=== PATIENT | male | born 1940 | race Caucasian/White ===

== ENCOUNTER → 2017-02-04 | Outpatient (CLI) | payer MEDICARE, OTHER ==
[2017-02-04 15:15] LABS: ALT 32 U/L (21-72); AST 22 U/L (17-59); Alkaline Phosphatase 61 U/L (38-126); Anion Gap 10 mmol/L; Appearance,Urine Clear (Clear); Bilirubin,Urine Negative (Negative); Blood Urea Nitrogen 10 mg/dL (9-20); CH 30.3; Calcium 9.2 mg/dL (8.4-10.2); Carbon Dioxide 25 mmol/L (22-30); Chloride 99 mmol/L (98-107); Glucose 97 mg/dL (74-99); Glucose,Urine (UA) Negative (Negative); HCT 41.3 % (39.0-53.0); HDW 2.65; HGB 13.4 gm/dL (13.0-17.5); Ketones,Urine Negative (Negative); Leukocyte Esterase,Urine Negative (Negative); MCHC 32.4 g/dL (31.0-37.0); MCV 89.5 fL (80.0-100.0); Mean Platelet Volume 6.5; Nitrite,Urine Negative (Negative); Non-African American GFR(MDRD) >60 (>60 ml/min/1.73 sqM); PH, Urine 5.5 (5.0-8.0); Partial Thromboplastin Time 24.6 sec (22.0-30.0); Potassium 4.6 mmol/L (3.5-5.1); Protein,Urine Negative (Negative); Prothrombin Time 10.4 sec (9.0-12.0); RBC 4.61 m/uL (4.30-5.90); RDW 13.9 % (11.5-15.5); Sodium 134 mmol/L (137-145); Total Bilirubin 0.6 mg/dL (0.2-1.3); Total Protein 6.9 g/dL (6.3-8.2); UA Billing (MACRO vs. MICRO) CHEM; Urobilinogen,Urine <2.0 mg/dL (<2.0); WBC 8.9 k/uL (3.8-10.6)
== END | disposition home or self-care (01) ==
LOC: LABPAT 14:21
PROVIDERS: ATTEND Orthopaedic Surgery
DX: Z01.812 Encounter for preprocedural laboratory examination (principal)
CPT/HCPCS: 80053; 81003; 85027; 85610; 85730; 87070

== ENCOUNTER 2017-03-02 06:17 | Inpatient (IN) | payer MEDICARE, OTHER ==
[~2017-03-02 06:17] MED LIST: ACETAMINOPHEN TAB 500 MG TAB PO ONE; HYDROmorphone 1 MG/ML 1 ML SYRINGE IVP PRN; LACTATED RINGERS 1,000 ML IV SCH; LIDOCAINE 1% 20 ML VIAL (10MG/ML) FOR IV START INTRADERMA PRN; MELOXICAM 7.5 MG TAB PO ONE; ONDANSETRON 4 MG/2 ML VIAL IVP ONE; TRANEXAMIC ACID 1,000 MG in SODIUM CHLORIDE 0.9% 100 ML IVPB ONE; VANCOMYCIN 1,500 MG in SODIUM CHLORIDE 0.9% 250 ML IVPB ONE
[2017-03-02] MEDS ORDERED: ceFAZolin 2 GM in SODIUM CHLORIDE 0.9% 100 ML IVPB STA (06:34)
[2017-03-02 07:12] LABS: INR 1.1 (<1.2); Prothrombin Time 11.2 sec (9.0-12.0)
[2017-03-02 07:17] LABS: Glucose,Whole Blood 163 mg/dL (75-99)
[2017-03-02] MEDS ORDERED: diphenhydrAMINE 50 MG/ML 1 ML VIAL ONE (08:10)
[2017-03-02] MEDS ORDERED: SODIUM CHLORIDE 0.9% 100 ML BAG ONE (08:10)
[2017-03-02] MEDS ORDERED: MIDAZOLAM 2 MG/2 ML VIAL ONE (08:10)
[2017-03-02] MEDS ORDERED: fentaNYL (PF) 50 MCG/ML 2 ML AMP ONE (08:10)
[2017-03-02] MEDS ORDERED: TRANEXAMIC ACID 1,000 MG/10 ML VIAL ONE (08:10)
[2017-03-02] MEDS ORDERED: ceFAZolin 3,000 MG in SODIUM CHLORIDE 0.9% IRRIGATIO 3,000 ML IRRIGATION ONE (08:50)
[2017-03-02] MEDS ORDERED: ROPIVACAINE 246.25 MG, EPINEPHrine 0.5 MG, KETOROLAC 30 MG, cloNIDine HCL/PF 80 MCG, WA... MISCELLANE ONE ×5 (08:51)
[2017-03-02] MEDS ORDERED: LACTATED RINGERS 1,000 ML IV ONE (09:58)
--- NOTE | 2017-03-02 10:34 | P.OP ---
Date of Procedure: 03/02/17 Preoperative Diagnosis: Postoperative Diagnosis: Procedure(s) Performed: PREOPERATIVE DIAGNOSIS: Left knee severe osteoarthritis with genu varum POSTOPERATIVE DIAGNOSIS: Left knee severe osteoarthritis with genu varum OPERATION: Left knee cemented total replacement arthroplasty. ANESTHESIA: Spinal ESTIMATED BLOOD LOSS: 100 ml. RESEARCH PHYSICIAN: Macey Mcghee PA-C (assistance with: patient positioning, retraction, exposure, hemostasis, leg positioning, implantation, irrigation, closure, dressing) COMPLICATIONS: None apparent. COMPONENTS IMPLANTED: Persona system from [employer] INDICATIONS: Mr. Diaz is a 76-year-old male with a history of severe left knee osteoarthritis. The operation of knee replacement has been discussed at length in the office, as well as potential risks and complications. These are inclusive of, but not limited to: bleeding, infection, scarring, discomfort, blood vessel and nerve damage, need for further surgery, failure to relieve symptoms, persistence, recurrence, or worsening of problems, loosening, dislocation, wear, blood clot, pulmonary embolism, , gait dysfunction, stiffness, and other risks as discussed in the office. Iovera procedure has been done preoperatively . The patient elects to proceed and the consent form has been signed. PROCEDURE: The patient was taken to the operating room and positioned on the operating room table in the supine position. Anesthesia was initiated. Care was taken to make sure that all pressure points were adequately padded. The operative lower extremity was prepped and draped in the usual aseptic fashion using ChloraPrep. Ioban drape was used for the case and the patient received intravenous antibiotics within one hour of the incision. A pneumotourniquet and leg brown were used for the case. The limb was exsanguinated with an Esmarch bandage and the tourniquet was inflated to 350 mmHg. Time-out was called confirming the patient's identity, side, procedure and administration of antibiotics. The incision was then created midline directly over the knee, carried down through skin and into the subcutaneous tissues and down to fascia. Full thickness subcutaneous medial flap was developed. Medial parapatellar arthrotomy was performed and the interior of the knee was inspected. There was end-stage osteoarthritis of the knee with a mild to moderate genu varum type deformity. The fat pad was excised and proximal medial release on the tibia was completed using meticulous dissection and a curved osteotome. The anterior cruciate ligament was taken down. Note was made of significant attrition of the anterior and significant degenerative appearance of the posterior cruciate ligaments. The exposure was excellent. The knee was flexed 90 degrees and the patella was everted. A spot was chosen on the femur approximately 1 cm anterior to the posterior cruciate ligament insertion and an intramedullary hole was created within the femur. The intramedullary guide was then set to 5 degrees of valgus. The distal cutting block was attached and pinned into position. An appropriate amount of distal femoral resection was set. The oscillating saw was then used to make the distal femoral cut. This cut was confirmed to be flat with the flat end of an osteotome. The retractors were placed around the tibia and the tibial surface was addressed. The angle and depth of resection was adjusted using an extramedullary cutting guide. The guide had a built-in 3 degree posterior slope cut. Once the cutting guide was adjusted appropriately and in line with the axis of the tibia and confirmed to be in good position in relation to the second metatarsal and transmalleolar axis, the tibial cut was then created with protection of the posterior neurovascular structures and the collateral ligaments. The tibial cut surface was removed and sized. Femoral sizing was then accomplished using anterior referencing. Care was taken to analyze the posterior condyles for signs of deficiency or severe wear, and adjustments to the guide were made, as appropriate. 3 degree external rotation pins were placed. The cutting jig for the femur was applied to these pins. The planned cuts were further analyzed prior to performing them with the oscillating saw. No femoral notching was produced. Bone fragments were removed and the cut surfaces were finished, as necessary, with a reciprocating saw. Spacer block technique was then used to confirm that the flexion and extension gaps were equal. Soft tissue releases and adjustment of the tibial and/or femoral cuts were made, as necessary, until the gaps were equal. This included release of the posterior cruciate ligament, which was tight in this patient and , if left unreleased, would have resulted in poor kinematics and possibly early loosening. The femur was then further finished for a posterior cruciate ligament substituting component. Patellar resurfacing was performed using a reamer. The size of the required patellar component was estimated and the patellar surface was then reamed down to a residual thickness which would recreate the [place] thickness with the component. The placement of the patellar component was influenced by the degree of patellar subluxation, if any, noted on the preoperative x-rays. Prior to placing trial components, anesthetic solution consisting of ropivicaine with epinephrine, ketorolac, and clonidine was injected carefully and methodically in a grid pattern using aspiration technique into the soft tissue around the knee circumferentially, starting with the deeper tissues first and progressing to fascia, and then finally the skin/subcutaneous tissue. Particular care was taken when injecting the posterior capsule. The trial components were inserted. The tibial tray was allowed to self center and the patella was noted to track very well. The position of the tibial component was marked and the tibia was then finished for a stemmed tibial component. Cement was mixed on the back table and applied to the final components. Trial components were removed and the cut surfaces of the bone were pulse lavaged thoroughly and dried. Cement was then applied to the tibial surface and pressurized into the surface using finger pressurization technique. The tibial component was then applied and excess cement was removed after it was impacted securely and noted to be flush with the cut surface. In similar fashion, the cement was applied to the cut femoral surface, pressurized in using finger pressurization and the component was impacted into place. Excess cement was removed. The polyethylene spacer was then implanted and locked into position. The patellar component was then applied in similar technique and a patellar clamp was used to hold the patella in place as the cement hardened. Once the cement had fully hardened, the knee was reinspected. Any other cement extrusion was removed and final kinematic testing showed range of motion from 0 to 130 degrees with excellent stability, both medially and laterally and appropriate alignment of the leg. Patellar tracking was excellent. The knee was then thoroughly pulse lavaged with normal saline. The tourniquet was deflated and hemostasis was obtained with electrocautery and IV tranexamic acid, 1 g given prior to inflation of the tourniquet and another gram given at the time of closure. Closure was with #2 Ethibond in the fascia and supplemented with #2 Quill, 2-0 Vicryl suture was used for the subcutaneous tissues and 3-0 Quill for the skin. Dermabond/Steri-Strips were then applied. A lightly compressive dressing was applied using Webril and an Eric wrap. The patient was then transferred to stretcher and taken to the recovery room in stable condition. Sponge and needle counts were correct. Implants: Indications for Procedure: Operative Findings: Description of Procedure:
[2017-03-02] MEDS ORDERED: hydrOXYzine PAMOATE 25 MG CAP PO PRN (10:37)
[2017-03-02] MEDS ORDERED: BISACODYL 10 MG SUPP RECTAL PRN (10:37)
[2017-03-02] MEDS ORDERED: NALOXONE 0.4 MG/ML 1 ML VIAL IV PRN (10:37)
[2017-03-02] MEDS ORDERED: HYDROmorphone 1 MG/ML 1 ML SYRINGE IVP PRN ×3 (10:37)
[2017-03-02] MEDS ORDERED: HYDROcodone/APAP 5-325MG 1 EACH TAB PO PRN (10:37)
[2017-03-02] MEDS ORDERED: MAGNESIUM HYDROXIDE 2,400 MG/10 ML CUP PO PRN (10:37)
[2017-03-02] MEDS ORDERED: ACETAMINOPHEN TAB 325 MG TAB PO PRN (10:37)
[2017-03-02] MEDS ORDERED: ONDANSETRON 4 MG/2 ML VIAL IVP PRN (10:37)
[2017-03-02] MEDS ORDERED: NA PHOS,M-B/NA PHOS,DI-BA 133 ML ENEMA RECTAL PRN (10:37)
[2017-03-02] MEDS ORDERED: ALBUTEROL NEBULIZED 2.5 MG/3 ML INHALATION ONE (10:40)
--- NOTE | 2017-03-02 11:35 | XR ---
EXAMINATION TYPE: XR knee limited LT DATE OF EXAM: 03/02/2017 CLINICAL HISTORY: Postoperative evaluation Two views of the left knee are submitted. Identified are changes of total knee arthroplasty with fem oral and tibial components appearing well seated. Postsurgical soft tissue changes are noted. Align ment is anatomic.
[2017-03-02] MEDS ORDERED: NITROGLYCERIN SL TABS 0.4 MG TAB SUBLINGUAL PRN (12:03)
[2017-03-02] MEDS ORDERED: IPRATROPIUM-ALBUTEROL 3 ML NEB INHALATION PRN (12:19)
[2017-03-02] MEDS: IPRATROPIUM-ALBUTEROL 3 ML NEB INHALATION SCH ×3 (12:19→19:50)
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
[2017-03-02 13:05] LABS: Basophils # (A) 0.1 k/uL (0-0.2); Basophils % (A) 2 %; CH 29.6; CHCM 33.7; Eosinophils # (A) 0.8 k/uL (0-0.7); Eosinophils % (A) 10 %; HCT 39.5 % (39.0-53.0); HDW 2.87; HGB 13.3 gm/dL (13.0-17.5); Luc # (Auto) 0.19; Luc % (Auto) 3; Lymphocytes # (A) 2.2 k/uL (1.0-4.8); Lymphocytes % (A) 29 %; MCH 29.7 pg (25.0-35.0); MCHC 33.7 g/dL (31.0-37.0); MCV 88.3 fL (80.0-100.0); Monocytes # (A) 0.4 k/uL (0-1.0); Monocytes % (A) 5 %; Neutrophils % (A) 52 %; RBC 4.47 m/uL (4.30-5.90); RDW 13.3 % (11.5-15.5); WBC 7.7 k/uL (3.8-10.6); WBC (Perox) 8.19
[2017-03-02 13:12] LABS: ALT 26 U/L (21-72); AST 18 U/L (17-59); Alkaline Phosphatase 55 U/L (38-126); Anion Gap 6 mmol/L; Blood Urea Nitrogen 8 mg/dL (9-20); Calcium 8.6 mg/dL (8.4-10.2); Carbon Dioxide 28 mmol/L (22-30); Chloride 103 mmol/L (98-107); Glucose 129 mg/dL (74-99); Non-African American GFR(MDRD) >60 (>60 ml/min/1.73 sqM); Potassium 4.6 mmol/L (3.5-5.1); Sodium 137 mmol/L (137-145); Total Bilirubin 0.3 mg/dL (0.2-1.3); Total Protein 5.8 g/dL (6.3-8.2)
[2017-03-02 15:07] VITALS: BMI 33.9
[2017-03-02] MEDS: ceFAZolin 2 GM in SODIUM CHLORIDE 0.9% 100 ML IVPB SCH (16:54)
[2017-03-02] MEDS: LACTATED RINGERS 1,000 ML IV SCH ×2 (16:54→20:39)
[2017-03-02] MEDS ORDERED: WARFARIN 5 MG TAB PO ONE (18:00)
[2017-03-02] MEDS: LISINOPRIL 2.5 MG TAB PO SCH (18:22)
[2017-03-02] MEDS: SYMBICORT 160-4.5 MCG INHALER INHALATION SCH (19:50)
[2017-03-02] MEDS: levETIRAcetam 500 MG TAB PO SCH (21:40)
[2017-03-02] MEDS: MONTELUKAST 10 MG TAB PO SCH (21:40)
[2017-03-02] MEDS: ATORVASTATIN 10 MG TAB PO SCH (21:40)
[2017-03-02] MEDS: SENNOSIDES-DOCUSATE SODIUM 1 EACH TAB PO SCH (21:43)
[2017-03-02] MEDS ORDERED: TEMAZEPAM 15 MG CAP PO PRN (22:00)
[2017-03-03] MEDS: ceFAZolin 2 GM in SODIUM CHLORIDE 0.9% 100 ML IVPB SCH (00:58)
[2017-03-03] MEDS: IPRATROPIUM-ALBUTEROL 3 ML NEB INHALATION SCH ×4 (07:04→21:13)
[2017-03-03 07:31] LABS: Basophils # (A) 0.1 k/uL (0-0.2); Basophils % (A) 1 %; CH 29.9; CHCM 33.5; Eosinophils # (A) 0.8 k/uL (0-0.7); Eosinophils % (A) 7 %; HCT 37.8 % (39.0-53.0); HDW 2.73; HGB 12.3 gm/dL (13.0-17.5); Luc # (Auto) 0.16; Luc % (Auto) 1; Lymphocytes # (A) 1.7 k/uL (1.0-4.8); Lymphocytes % (A) 15 %; MCH 29.2 pg (25.0-35.0); MCHC 32.6 g/dL (31.0-37.0); MCV 89.8 fL (80.0-100.0); Mean Platelet Volume 6.8; Monocytes # (A) 0.7 k/uL (0-1.0); Monocytes % (A) 6 %; Neutrophils % (A) 70 %; RBC 4.21 m/uL (4.30-5.90); RDW 13.5 % (11.5-15.5); WBC 11.4 k/uL (3.8-10.6); WBC (Perox) 11.63
[2017-03-03 07:45] LABS: ALT 31 U/L (21-72); AST 19 U/L (17-59); Alkaline Phosphatase 58 U/L (38-126); Anion Gap 6 mmol/L; Blood Urea Nitrogen 9 mg/dL (9-20); Calcium 8.3 mg/dL (8.4-10.2); Carbon Dioxide 26 mmol/L (22-30); Chloride 102 mmol/L (98-107); Glucose 123 mg/dL (74-99); INR 1.3 (<1.2); Non-African American GFR(MDRD) >60 (>60 ml/min/1.73 sqM); Potassium 4.2 mmol/L (3.5-5.1); Sodium 134 mmol/L (137-145); Total Bilirubin 0.5 mg/dL (0.2-1.3); Total Protein 5.5 g/dL (6.3-8.2)
[2017-03-03] MEDS: ISOSORBIDE MONONITRATE ER 30 MG TAB.ER.24H PO SCH (08:53)
[2017-03-03] MEDS: POTASSIUM CHLORIDE ER 20 MEQ TAB.ER PO SCH (08:53)
[2017-03-03] MEDS: PANTOPRAZOLE 40 MG TABLET PO SCH (08:53)
[2017-03-03] MEDS: METOPROLOL SUCCINATE (ER) 100 MG TAB.ER.24H PO SCH (08:53)
[2017-03-03] MEDS: levETIRAcetam 500 MG TAB PO SCH ×2 (08:53→21:08)
[2017-03-03] MEDS: MELOXICAM 7.5 MG TAB PO SCH (08:54)
[2017-03-03] MEDS: CLOPIDOGREL 75 MG TAB PO SCH (08:54)
[2017-03-03] MEDS: FLUTICASONE 50MCG/SPRAY NASAL 16GM EA NOSTRIL SCH (09:33)
--- NOTE | 2017-03-03 09:39 | P.PN ---
Subjective Principal diagnosis: Status post left total knee arthroplasty Patient is a pleasant 76-year-old male seen at bedside this morning. He is postop day #1 from left total knee arthroplasty performed by Dr. Benitez. He has pain at the surgical site as expected but denies any other new complaints. He denies calf pain, numbness, tingling or other. Review of systems is negative for fever, chills, chest pain, shortness of breath, slurred speech or other. Objective - Vital Signs Vital signs: Vital Signs Temp 98.4 F 03/03/17 08:47 Pulse 75 03/03/17 08:47 Resp 20 03/03/17 08:47 BP 133/64 03/03/17 08:47 Pulse Ox 97 03/03/17 08:47 Intake & Output 03/02/17 03/03/17 03/03/17 18:59 06:59 18:59 Intake Total 1701 2155 Output Total 100 600 300 Balance 1601 1555 -300 Weight 95.254 kg Intake: IV 1001 Intake, IV Titration 300 1100 Amount Lactated Ringers 1,000 ml 300 300 @ 100 mls/hr IV .Q10H [facility] Rx#:[id number] ceFAZolin 2 gm In Sodium 800 Chloride 0.9% 100 ml @ 100 mls/hr IVPB Q8HR [facility] Rx#:[id number] Oral 400 1055 Output: Urine 600 300 Estimated Blood Loss 100 Other: # Voids 1 - Exam Inspection of the left lower extremity reveals a benign surgical wound. There is no active bleeding or drainage. Calf is soft and nontender. Neurovascular status is intact with motor and sensation throughout the left lower extremity. 2+ dorsalis pedis pulses present and less than 2 second cap refill is present. - Constitutional General appearance: Present: no acute distress - Psychiatric Psychiatric: Present: A&O x's 3, appropriate affect, intact judgment & insight - Labs CBC & Chem 7: 03/03/17 06:46 03/03/17 06:46 Labs: Abnormal Lab Results - Last 24 Hours (Table) 03/02/17 03/02/17 03/03/17 Range/Units 12:40 12:40 06:46 WBC 11.4 H (3.8-10.6) k/uL RBC 4.21 L (4.30-5.90) m/uL Hgb 12.3 L (13.0-17.5) gm/dL Hct 37.8 L (39.0-53.0) % Neutrophils # 8.0 H (1.3-7.7) k/uL Eosinophils # 0.8 H 0.8 H (0-0.7) k/uL PT (9.0-12.0) sec INR (<1.2) Sodium (137-145) mmol/L BUN 8 L (9-20) mg/dL Glucose 129 H (74-99) mg/dL Calcium (8.4-10.2) mg/dL Total Protein 5.8 L (6.3-8.2) g/dL Albumin (3.5-5.0) g/dL 03/03/17 03/03/17 Range/Units 06:46 06:46 WBC (3.8-10.6) k/uL RBC (4.30-5.90) m/uL Hgb (13.0-17.5) gm/dL Hct (39.0-53.0) % Neutrophils # (1.3-7.7) k/uL Eosinophils # (0-0.7) k/uL PT 13.0 H (9.0-12.0) sec INR 1.3 H (<1.2) Sodium 134 L (137-145) mmol/L BUN (9-20) mg/dL Glucose 123 H (74-99) mg/dL Calcium 8.3 L (8.4-10.2) mg/dL Total Protein 5.5 L (6.3-8.2) g/dL Albumin 3.2 L (3.5-5.0) g/dL Assessment and Plan (1) Status post total knee replacement Narrative/Plan: He will continue with routine postop orthopedic protocol including pain management, wound care, physical therapy, DVT prophylaxis and medical management. Expect that he will discharged to home in the next 1-2 days. Status: Acute Time with Patient: Less than 30
[2017-03-03] MEDS: SYMBICORT 160-4.5 MCG INHALER INHALATION SCH ×2 (11:36→21:13)
[2017-03-03] MEDS ORDERED: MULTIVITAMINS, THERA 1 EACH TAB PO SCH (12:00)
[2017-03-03] MEDS: MULTIVITAMINS, THERA 1 EACH TAB PO SCH (13:10)
[2017-03-03] MEDS: HYDROcodone/APAP 5-325MG 1 EACH TAB PO PRN (13:10)
[2017-03-03] MEDS: LISINOPRIL 2.5 MG TAB PO SCH (17:49)
[2017-03-03] MEDS ORDERED: WARFARIN 7.5 MG TAB PO ONE (18:00)
--- NOTE | 2017-03-03 19:29 | P.PN ---
Subjective This is a 76-year-old male with a known past medical history of COPD, hypertension, hyperlipidemia, myocardial infarction with coronary artery disease and previous cardiac stent and prostate cancer. Patient has been dealing with left knee pain and known osteoarthritis in that left knee. He underwent a left total knee arthroplasty with Dr. Benitez. Tolerated surgery well with no complications. He had estimated blood loss of 100 mL. We have been consulted for medical management. Patient denies any chest pain or shortness of breath. He has been wheezing. He does report having a cough about 3 days ago and that resolved. Currently no coughing or shortness of breath. Denies any chest pain. Denies any nausea or vomiting. Had a bowel movement yesterday. Denies any urinary symptoms. patient denies any pain 03/03/2017 patient is alert and oriented 3 knee pain is reasonably well controlled denies any chest pain or shortness of breath no cough no nausea or vomiting no abdominal pain no urinary symptoms. He was able to ambulate about 50 steps with walker and help Objective - Vital Signs Vital signs: Vital Signs Temp 98.0 F 03/03/17 15:00 Pulse 68 03/03/17 17:03 Resp 16 03/03/17 15:00 BP 113/55 03/03/17 15:00 Pulse Ox 95 03/03/17 15:00 Intake & Output 03/03/17 03/03/17 03/04/17 06:59 18:59 06:59 Intake Total 2155 Output Total 600 800 Balance 1555 -800 Weight 95.254 kg Intake: Intake, IV Titration 1100 Amount Lactated Ringers 1,000 ml 300 @ 100 mls/hr IV .Q10H [facility] Rx#:[id number] ceFAZolin 2 gm In Sodium 800 Chloride 0.9% 100 ml @ 100 mls/hr IVPB Q8HR [facility] Rx#:[id number] Oral 1055 Output: Urine 600 800 Other: # Voids 1 - Exam In general patient is alert and oriented 3 in no apparent distress HEENT head normocephalic and atraumatic Neck is supple no JVD no goiter no lymphadenopathy Chest exam reveals a few scattered crackles no wheezing Cardiac exam reveals regular heart sounds S1 and S2 no gallops no murmurs Abdomen is soft nontender no organomegaly with normal bowel sounds Extremity exam reveals no edema no cyanosis or clubbing - Labs CBC & Chem 7: 03/03/17 06:46 03/03/17 06:46 Labs: Abnormal Lab Results - Last 24 Hours (Table) 03/03/17 03/03/17 03/03/17 Range/Units 06:46 06:46 06:46 WBC 11.4 H (3.8-10.6) k/uL RBC 4.21 L (4.30-5.90) m/uL Hgb 12.3 L (13.0-17.5) gm/dL Hct 37.8 L (39.0-53.0) % Neutrophils # 8.0 H (1.3-7.7) k/uL Eosinophils # 0.8 H (0-0.7) k/uL PT 13.0 H (9.0-12.0) sec INR 1.3 H (<1.2) Sodium 134 L (137-145) mmol/L Glucose 123 H (74-99) mg/dL Calcium 8.3 L (8.4-10.2) mg/dL Total Protein 5.5 L (6.3-8.2) g/dL Albumin 3.2 L (3.5-5.0) g/dL Assessment and Plan Plan: 1. Osteoarthritis: Status post Left total knee arthroplasty. Postop day #2. Pain is controlled. Continue pain medication and DVT prophylaxis per orthopedic protocol. INR 1.1. Patient is receiving Coumadin 5 mg tonight 2. Acute COPD exacerbation with a known history of COPD: Patient is wheezing. Start nebulizer treatments 4 times a day and as needed 3. Essential hypertension continue his lisinopril and metoprolol 4. History of CVA 5. History of myocardial infarction and coronary disease with cardiac stent 6. History of prostate cancer 7. Hyperlipidemia continue statin 8. Seizure disorder: Continue Keppra GI prophylaxis omeprazole and DVT prophylaxis per orthopedic protocol Patient doing well continue was current management will follow in a.m.
[2017-03-03] MEDS: MONTELUKAST 10 MG TAB PO SCH (21:08)
[2017-03-03] MEDS: SENNOSIDES-DOCUSATE SODIUM 1 EACH TAB PO SCH (21:08)
[2017-03-03] MEDS: ATORVASTATIN 10 MG TAB PO SCH (21:08)
[2017-03-03] MEDS: LACTATED RINGERS 1,000 ML IV SCH ×2 (23:02→23:08)
[2017-03-04] MEDS: HYDROcodone/APAP 5-325MG 1 EACH TAB PO PRN ×2 (00:53→10:03)
[2017-03-04] MEDS: LACTATED RINGERS 1,000 ML IV SCH (04:08)
[2017-03-04 07:12] LABS: Basophils # (A) 0.1 k/uL (0-0.2); Basophils % (A) 1 %; CH 30.2; CHCM 33.7; Eosinophils # (A) 0.4 k/uL (0-0.7); Eosinophils % (A) 5 %; HCT 33.8 % (39.0-53.0); HDW 2.65; HGB 10.9 gm/dL (13.0-17.5); Luc % (Auto) 3; Lymphocytes % (A) 25 %; MCHC 32.2 g/dL (31.0-37.0); Mean Platelet Volume 6.9; Monocytes # (A) 0.9 k/uL (0-1.0); Monocytes % (A) 11 %; Neutrophils # (A) 4.6 k/uL (1.3-7.7); Neutrophils % (A) 56 %; RBC 3.75 m/uL (4.30-5.90); RDW 13.4 % (11.5-15.5); WBC 8.2 k/uL (3.8-10.6); WBC (Perox) 7.96
[2017-03-04 07:15] LABS: INR 1.7 (<1.2); Prothrombin Time 16.6 sec (9.0-12.0)
[2017-03-04 07:25] LABS: ALT 26 U/L (21-72); AST 15 U/L (17-59); Alkaline Phosphatase 51 U/L (38-126); Anion Gap 8 mmol/L; Blood Urea Nitrogen 7 mg/dL (9-20); Calcium 8.4 mg/dL (8.4-10.2); Carbon Dioxide 26 mmol/L (22-30); Chloride 101 mmol/L (98-107); Glucose 107 mg/dL (74-99); Non-African American GFR(MDRD) >60 (>60 ml/min/1.73 sqM); Potassium 3.9 mmol/L (3.5-5.1); Sodium 135 mmol/L (137-145); Total Bilirubin 0.7 mg/dL (0.2-1.3); Total Protein 5.1 g/dL (6.3-8.2)
[2017-03-04 08:07] VITALS: BP 129/60; RESP 16; TEMP 97.2
[2017-03-04] MEDS: METOPROLOL SUCCINATE (ER) 100 MG TAB.ER.24H PO SCH (08:22)
[2017-03-04] MEDS: FLUTICASONE 50MCG/SPRAY NASAL 16GM EA NOSTRIL SCH (08:22)
[2017-03-04] MEDS: MELOXICAM 7.5 MG TAB PO SCH (08:23)
[2017-03-04] MEDS: levETIRAcetam 500 MG TAB PO SCH (08:23)
[2017-03-04] MEDS: PANTOPRAZOLE 40 MG TABLET PO SCH (08:23)
[2017-03-04] MEDS: ISOSORBIDE MONONITRATE ER 30 MG TAB.ER.24H PO SCH (08:23)
[2017-03-04] MEDS: MULTIVITAMINS, THERA 1 EACH TAB PO SCH (08:23)
[2017-03-04] MEDS: POTASSIUM CHLORIDE ER 20 MEQ TAB.ER PO SCH (08:23)
[2017-03-04] MEDS: IPRATROPIUM-ALBUTEROL 3 ML NEB INHALATION SCH ×4 (08:59→15:42)
[2017-03-04] MEDS: CLOPIDOGREL 75 MG TAB PO SCH (09:00)
[2017-03-04] MEDS: SYMBICORT 160-4.5 MCG INHALER INHALATION SCH (09:16)
--- NOTE | 2017-03-04 09:45 | P.DS ---
Providers Date of admission: 03/02/17 06:17 Expected date of discharge: 03/04/17 Attending physician: Michael Benitez Consults: 03/02/17 10:37 Consult Physician Routine Consulting Provider: Florian Rdz Consult Reason/Comments: medical management/anticoagulation Do you want consulting provider notified?: Yes Primary care physician: Florian Rdz - Discharge Diagnosis(es) (1) Primary localized osteoarthritis of left knee Current Visit: Yes Status: Acute (2) Status post total knee replacement Current Visit: Yes Status: Acute Priority: Medium Hospital Course: This is a 76-year-old male who was last seen with complaint of continued left knee pain. The patient has a known history of degenerative arthritis of the left knee and presents to discuss surgical options. After discussion and consideration the patient elects to proceed with total left knee arthroplasty. The patient is seen preoperatively by Dr. Rdz and cleared for surgery. The patient is admitted to [facility] for total left knee arthroplasty. The procedures performed without complication or sequelae. He is doing well postoperatively. Vital signs are stable at discharge. Labs are stable at discharge. the patient is ambulating well with walker with minimal assistance. The patient is discharged to home on postop day #2 pending medical clearance. Please see orders and refer to the med rec for accurate list of medications. Patient Condition at Discharge: Good Plan - Discharge Summary New Discharge Prescriptions: New Aspirin 325 mg PO BID #120 tab HYDROcodone/APAP 5-325MG [[employer] 5-325] 1 - 2 each PO Q4-6H PRN #90 tab PRN Reason: Pain Sennosides-Docusate Sodium [Senokot-S] 1 tab PO BID #60 tablet No Action Ipratropium/Albuterol Sulfate [Duoneb 0.5 mg-3 mg/3 ml Soln] 3 ml INHALATION RT-QID Aspirin 325 mg PO DAILY Metoprolol Succinate [Toprol XL] 100 mg PO DAILY Lisinopril [Zestril] 2.5 mg PO W/SUPPER Montelukast Sodium [Singulair] 10 mg PO HS Nitroglycerin Sl Tabs [Nitrostat] 0.4 mg SUBLINGUAL Q5M PRN PRN Reason: Pain Isosorbide Mononitrate ER [Imdur] 30 mg PO DAILY Albuterol Sulfate [Proair Hfa] 2 puff INHALATION RT-Q6H PRN PRN Reason: Shortness Of Breath Simvastatin [Zocor] 20 mg PO HS Clopidogrel [Plavix] 75 mg PO DAILY Potassium Chloride [Klor-Con 20] 20 meq PO DAILY Omeprazole [PriLOSEC] 20 mg PO DAILY Multivitamins, Thera [Multivitamin (formulary)] 1 tab PO DAILY levETIRAcetam [Keppra] 500 mg PO Q12HR #60 tab Fluticasone/Salmeterol [Advair 500-50 Diskus] 1 puff INHALATION RT-BID PRN PRN Reason: Shortness Of Breath Fluticasone Nasal [place] [Flonase Nasal [place]] 1 spray EA NOSTRIL DAILY diphenhydrAMINE HCL [Benadryl] 25 mg PO HS PRN PRN Reason: Insomnia Warfarin [Coumadin] 2.5 mg PO DAILY Discharge Medication List Albuterol Sulfate [Proair Hfa] 2 puff INHALATION RT-Q6H PRN 01/11/14 [History] Aspirin 325 mg PO DAILY 01/11/14 [History] Clopidogrel [Plavix] 75 mg PO DAILY 01/11/14 [History] Ipratropium/Albuterol Sulfate [Duoneb 0.5 mg-3 mg/3 ml Soln] 3 ml INHALATION RT- QID 01/11/14 [History] Isosorbide Mononitrate ER [Imdur] 30 mg PO DAILY 01/11/14 [History] Lisinopril [Zestril] 2.5 mg PO W/SUPPER 01/11/14 [History] Metoprolol Succinate [Toprol XL] 100 mg PO DAILY 01/11/14 [History] Montelukast Sodium [Singulair] 10 mg PO HS 01/11/14 [History] Multivitamins, Thera [Multivitamin (formulary)] 1 tab PO DAILY 01/11/14 [History ] Nitroglycerin Sl Tabs [Nitrostat] 0.4 mg SUBLINGUAL Q5M PRN 01/11/14 [History] Omeprazole [PriLOSEC] 20 mg PO DAILY 01/11/14 [History] Potassium Chloride [Klor-Con 20] 20 meq PO DAILY 01/11/14 [History] Simvastatin [Zocor] 20 mg PO HS 01/11/14 [History] levETIRAcetam [Keppra] 500 mg PO Q12HR #60 tab 01/13/14 [Rx] Fluticasone/Salmeterol [Advair 500-50 Diskus] 1 puff INHALATION RT-BID PRN 03/28 [History] Fluticasone Nasal [place] [Flonase Nasal [place]] 1 spray EA NOSTRIL DAILY 02/25/16 [History] diphenhydrAMINE HCL [Benadryl] 25 mg PO HS PRN 07/22/16 [History] Warfarin [Coumadin] 2.5 mg PO DAILY 02/26/17 [History] Aspirin 325 mg PO BID #120 tab 03/02/17 [Rx] HYDROcodone/APAP 5-325MG [[employer] 5-325] 1 - 2 each PO Q4-6H PRN #90 tab 03/02/17 [Rx] Sennosides-Docusate Sodium [Senokot-S] 1 tab PO BID #60 tablet 03/02/17 [Rx] Follow up Appointment(s)/Referral(s): Macey Mcghee, PAC [[employer]] - 2 Weeks Ambulatory/Diagnostic Orders: Continuous Passive Motion (CPM) Machine [DME.AMB1] Time Frame: 3 Weeks, Facility : [facility], Location: Case Management Activity/Diet/Wound Care/Special Instructions: May bear weight as tolerated with walker. CPM as directed. May shower if no drainage from incision. Medical has resumed Plavix. Take Coumadin for 3 more doses after discharge. ( last dose March 06) Discharge Disposition: HOME WITH HOME HEALTH SERVICES
[2017-03-04 14:20] VITALS: PULSE 72
--- NOTE | 2017-03-04 15:22 | P.PN ---
Subjective This is a 76-year-old male with a known past medical history of COPD, hypertension, hyperlipidemia, myocardial infarction with coronary artery disease and previous cardiac stent and prostate cancer. Patient has been dealing with left knee pain and known osteoarthritis in that left knee. He underwent a left total knee arthroplasty with Dr. Benitez. Tolerated surgery well with no complications. He had estimated blood loss of 100 mL. We have been consulted for medical management. Patient denies any chest pain or shortness of breath. He has been wheezing. He does report having a cough about 3 days ago and that resolved. Currently no coughing or shortness of breath. Denies any chest pain. Denies any nausea or vomiting. Had a bowel movement yesterday. Denies any urinary symptoms. patient denies any pain 03/03/2017 patient is alert and oriented 3 knee pain is reasonably well controlled denies any chest pain or shortness of breath no cough no nausea or vomiting no abdominal pain no urinary symptoms. He was able to ambulate about 50 steps with walker and help Objective - Vital Signs Vital signs: Vital Signs Temp 97.2 F L 03/04/17 08:05 Pulse 72 03/04/17 14:19 Resp 16 03/04/17 08:05 BP 129/60 03/04/17 08:05 Pulse Ox 96 03/04/17 08:05 Intake & Output 03/03/17 03/04/17 03/04/17 18:59 06:59 18:59 Intake Total 2400 480 Output Total 800 1750 600 Balance -800 650 -120 Weight 95.254 kg Intake: Intake, IV Titration 1100 Amount Lactated Ringers 1,000 ml 1100 @ 100 mls/hr IV .Q10H [facility]MA Rx#:[id number] Oral 1300 480 Output: Urine 800 1750 600 Other: # Voids 1 3 - Exam In general patient is alert and oriented 3 in no apparent distress HEENT head normocephalic and atraumatic Neck is supple no JVD no goiter no lymphadenopathy Chest exam reveals a few scattered crackles no wheezing Cardiac exam reveals regular heart sounds S1 and S2 no gallops no murmurs Abdomen is soft nontender no organomegaly with normal bowel sounds Extremity exam reveals no edema no cyanosis or clubbing - Labs CBC & Chem 7: 03/04/17 06:30 03/04/17 06:30 Labs: Abnormal Lab Results - Last 24 Hours (Table) 03/04/17 03/04/17 03/04/17 Range/Units 06:30 06:30 06:30 RBC 3.75 L (4.30-5.90) m/uL Hgb 10.9 L (13.0-17.5) gm/dL Hct 33.8 L (39.0-53.0) % PT 16.6 H (9.0-12.0) sec INR 1.7 H (<1.2) Sodium 135 L (137-145) mmol/L BUN 7 L (9-20) mg/dL Glucose 107 H (74-99) mg/dL AST 15 L (17-59) U/L Total Protein 5.1 L (6.3-8.2) g/dL Albumin 3.0 L (3.5-5.0) g/dL Assessment and Plan Plan: 1. Osteoarthritis: Status post Left total knee arthroplasty. Postop day #3. Pain is controlled. Continue pain medication and DVT prophylaxis per orthopedic protocol. INR 1.1. Patient is receiving Coumadin 5 mg tonight 2. Acute COPD exacerbation with a known history of COPD: Patient is wheezing. Start nebulizer treatments 4 times a day and as needed 3. Essential hypertension continue his lisinopril and metoprolol 4. History of CVA 5. History of myocardial infarction and coronary disease with cardiac stent 6. History of prostate cancer 7. Hyperlipidemia continue statin 8. Seizure disorder: Continue Keppra Patient is scheduled for discharge today, he is stable there is no medical contraindication for discharge Will follow in the office within 1 week
[2017-03-04] MEDS: LISINOPRIL 2.5 MG TAB PO SCH (16:58)
[2017-03-04] MEDS ORDERED: WARFARIN 5 MG TAB PO ONE (18:00)
== END 2017-03-04 17:27 | disposition home health service (06) | DRG 470 ==
LOC: 2ORMAIN 06:17 → 3SUR 10:50
PROVIDERS: ADMIT Orthopaedic Surgery; ATTEND Orthopaedic Surgery
PROC: 0SRD0J9 Replacement of Left Knee Joint with Synthetic Substitute, Cemented, Open Approach (ICD-10-PCS; principal; 2017-03-02 08:00)
DX: M17.12 Unilateral primary osteoarthritis, left knee (principal); J44.1 Chronic obstructive pulmonary disease with (acute) exacerbation; E11.9 Type 2 diabetes mellitus without complications; G40.909 Epilepsy, unspecified, not intractable, without status epilepticus; I10 Essential (primary) hypertension; E78.5 Hyperlipidemia, unspecified; F40.240 Claustrophobia; H91.92 Unspecified hearing loss, left ear; I25.10 Atherosclerotic heart disease of native coronary artery without angina pectoris; I25.2 Old myocardial infarction; M21.169 Varus deformity, not elsewhere classified, unspecified knee; H53.8 Other visual disturbances; Z79.01 Long term (current) use of anticoagulants; Z79.02 Long term (current) use of antithrombotics/antiplatelets; Z79.82 Long term (current) use of aspirin; Z79.899 Other long term (current) drug therapy; Z85.46 Personal history of malignant neoplasm of prostate; Z95.5 Presence of coronary angioplasty implant and graft; Z87.891 Personal history of nicotine dependence; Z85.828 Personal history of other malignant neoplasm of skin; Z86.14 Personal history of Methicillin resistant Staphylococcus aureus infection
CPT/HCPCS: 80053; 85025; 85610; 88300; 94640; 94760

== ENCOUNTER → 2017-03-11 | Outpatient (CLI) | payer MEDICARE ==
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
== END | disposition home or self-care (01) ==
LOC: RADXRMAIN 16:15
PROVIDERS: ATTEND Internal Medicine
DX: J44.9 Chronic obstructive pulmonary disease, unspecified (principal)
CPT/HCPCS: 71020

== ENCOUNTER → 2017-12-17 | Outpatient (CLI) | payer MEDICARE ==
--- NOTE | 2017-12-17 15:43 | CONS ---
CONSULTATION DATE OF SERVICE: 12/17/17 77-year-old gentleman has been evaluated in [facility] for obstructive sleep apnea- hypopnea syndrome. HISTORY OF PRESENT ILLNESS SLEEP WAKE EVALUATION: Patient has been diagnosed with obstructive sleep apnea more than 10 years ago. Since that time, he is on treatment with CPAP. At the present time, his CPAP unit creates noises and he has sometimes snoring and problem with breathing during the sleep. In the morning he wakes up tired, has difficulties to pay attention, falling asleep, has problems with memory. [place] Sleepiness Scale Thursday he is in today increased to 12. PAST MEDICAL HISTORY: Positive for asthma and COPD, diabetes mellitus, hypertension, mini stroke, hyperlipidemia, prostate CA, back problems. PAST SURGICAL HISTORY: Surgical treatment of prostate CA in 1999. Surgery for umbilical hernia, appendectomy and cataract surgery. MEDICATIONS: Glipizide, Prilosec, Plavix, simvastatin, multivitamins, Advair Diskus, ProAir, nitroglycerin on p.r.n. basis, Imdur, Singulair, metoprolol, lisinopril, Benadryl, Flonase nasal spray. SOCIAL HISTORY: Positive for smoking about 1 pack for 30 years, quit about 7 years ago. Alcohol consumption occasional. FAMILY HISTORY: Hypertension, heart problems, hyperlipidemia, stroke, asthma, pneumoniae, headaches, cancer, emphysema, sleep apnea, lung problems, diabetes. REVIEW OF SYSTEMS: Sleepiness during the day. REVIEW OF SYSTEMS: The patient does not offer any physical complaints. The patient denies any rashes or other skin problems. The patient does not report any joint pain, swelling, or restriction of movement. The patient denies any headaches, any visual problems, hearing loss, sore throat. Denies any pain on breathing, shortness of breath, cough, wheezing, hemoptysis, night sweats. The patient also denies chest pain or distress, palpitations, dyspnea, orthopnea, edema, history of hypertension, history of myocardial infarction. Denies nausea, vomiting, diarrhea, hematemesis, and melena. Denies hemorrhoids or ulcers. Denies any genitourinary problems. Does not report any history of seizures. PHYSICAL EXAMINATION: gentleman without distress, BP 119/55, HR 58, RR 16, height 5 feet 6 inches, weight 204, BMI 32.9, temperature 97.7, oxygen saturation room air 94%. Oropharynx low position of soft palate. Significant restriction of nasal breathing. possible nasal septum deviation. Neck 16-1/4 inch in circumference. Abdomen slightly obese. Lungs Clear to auscultation bilaterally. Heart S1, S2 can be heard, no gallops, rubs, or murmurs. Abdomen: Slightly obese, soft, nontender, no organomegaly, bowel sounds are heard in all four quadrants. Extremities No cyanosis, clubbing, or edema, peripheral pulses are palpable. Cranial Nerves II to XII are intact. OUTSOLE SPLICER There are no gross sensory or motor deficits, DTRS 2+ bilaterally. Musculoskeletal Muscle strength is symmetrical. IMPRESSION: 1. Obstructive sleep apnea-hypopnea syndrome for more than 10 years. Presently, the patient has problem with his CPAP unit. Has sleepiness during the day. Low position of soft palate, wide neck, significant restriction of nasal breathing. 2. Hypertension. 3. History of mini-stroke. 4. Diabetes mellitus. 5. History of asthma and chronic obstructive pulmonary disease. 6. Hyperlipidemia. 7. History of prostate cancer, status post surgical treatment. 8. Status post total left knee replacement. 9. Status post appendectomy. 10.Status post umbilical hernia repair. 11.Status post cataract surgery. 12.Status post stent insertion to coronary artery in 2001 and 2005. 13.Coronary artery disease. PLAN: 1. Will repeat CPAP titration for evaluation of effective CPAP pressure at the present time. 2. The patient should receive new CPAP unit. 3. Losing weight. 4. Sleep hygiene with regular time in bed for at least 8 hours. 5. No driving if feeling sleepiness. Thank you very much for referring this patient for consultation. Sincerely, Valentin Ramos MD, PhD, FAASM Diplomat of [place] [employer] [place] [employer] Supervisor of [facility] [place] MMODL / IJN: [id number] /
== END | disposition home or self-care (01) ==
LOC: SLEEP 14:24
PROVIDERS: ATTEND Internal Medicine
DX: G47.33 Obstructive sleep apnea (adult) (pediatric) (principal); M27.8 Other specified diseases of jaws; R06.89 Other abnormalities of breathing; J44.9 Chronic obstructive pulmonary disease, unspecified; E11.9 Type 2 diabetes mellitus without complications; I10 Essential (primary) hypertension; I63.9 Cerebral infarction, unspecified; E78.5 Hyperlipidemia, unspecified; I25.10 Atherosclerotic heart disease of native coronary artery without angina pectoris; Z85.46 Personal history of malignant neoplasm of prostate; Z98.890 Other specified postprocedural states; Z79.84 Long term (current) use of oral hypoglycemic drugs; Z79.899 Other long term (current) drug therapy; Z87.891 Personal history of nicotine dependence; Z96.651 Presence of right artificial knee joint; Z98.49 Cataract extraction status, unspecified eye; Z99.89 Dependence on other enabling machines and devices; Z95.5 Presence of coronary angioplasty implant and graft
CPT/HCPCS: 99211

== ENCOUNTER 2018-01-22 19:02 | Observation (INO) | payer MEDICARE ==
[2018-01-22 19:31] LABS: Basophils # (A) 0.1 k/uL (0-0.2); Basophils % (A) 1 %; Eosinophils # (A) 0.5 k/uL (0-0.7); Eosinophils % (A) 7 %; HCT 43.2 % (39.0-53.0); HGB 14.8 gm/dL (13.0-17.5); Lymphocytes # (A) 2.6 k/uL (1.0-4.8); Lymphocytes % (A) 37 %; MCH 29.1 pg (25.0-35.0); MCHC 34.3 g/dL (31.0-37.0); Mean Platelet Volume 6.8; Monocytes # (A) 0.5 k/uL (0-1.0); Monocytes % (A) 7 %; Neutrophils # (A) 3.2 k/uL (1.3-7.7); Neutrophils % (A) 46 %; Platelet Count 260 k/uL (150-450); RBC 5.08 m/uL (4.30-5.90); RDW 13.2 % (11.5-15.5); WBC 6.9 k/uL (3.8-10.6)
[2018-01-22 19:39] LABS: INR 1.1 (<1.2)
[2018-01-22] MEDS ORDERED: DEXAMETHASONE SOD PHOSPHATE 10 MG/ML 1 ML VIAL IV STA (19:39)
[2018-01-22] MEDS ORDERED: IPRATROPIUM-ALBUTEROL 3 ML NEB INHALATION STA (19:39)
[2018-01-22 19:40] LABS: Partial Thromboplastin Time 24.1 sec (22.0-30.0); Prothrombin Time 10.4 sec (9.0-12.0)
[2018-01-22 19:42] LABS: ALT 27 U/L (21-72); AST 20 U/L (17-59); Alkaline Phosphatase 54 U/L (38-126); Anion Gap 11 mmol/L; Blood Urea Nitrogen 13 mg/dL (9-20); Calcium 9.2 mg/dL (8.4-10.2); Carbon Dioxide 22 mmol/L (22-30); Chloride 104 mmol/L (98-107); Glucose 157 mg/dL (74-99); Potassium 4.3 mmol/L (3.5-5.1); Sodium 137 mmol/L (137-145); Total Bilirubin 0.3 mg/dL (0.2-1.3); Total Protein 6.5 g/dL (6.3-8.2)
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
[2018-01-22 19:50] LABS: Creatine Kinase 27 U/L (55-170)
[2018-01-22 20:03] LABS: Creatine Kinase MB 0.3 ng/mL (0.0-2.4); Troponin I <0.012 ng/mL (0.000-0.034)
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
[2018-01-22] MEDS ORDERED: IPRATROPIUM-ALBUTEROL 3 ML NEB INHALATION PRN (20:51)
[2018-01-22] MEDS ORDERED: NALOXONE 0.4 MG/ML 1 ML VIAL IV PRN (20:53)
[2018-01-22 22:16] VITALS: BMI 29.0
[2018-01-22] MEDS ORDERED: MORPHINE SULFATE 2 MG/ML SYRINGE IVP PRN (23:38)
[2018-01-22] MEDS ORDERED: diphenhydrAMINE 25 MG CAP PO SCH (23:45)
[2018-01-23 02:34] LABS: Creatine Kinase 26 U/L (55-170)
[2018-01-23 02:48] LABS: Creatine Kinase MB 0.3 ng/mL (0.0-2.4); Troponin I <0.012 ng/mL (0.000-0.034)
[2018-01-23 07:25] LABS: Glucose,Whole Blood 184 mg/dL (75-99)
[2018-01-23] MEDS: IPRATROPIUM-ALBUTEROL 3 ML NEB INHALATION SCH ×2 (07:36→11:07)
[2018-01-23 08:39] LABS: Creatine Kinase 26 U/L (55-170)
[2018-01-23 08:52] LABS: Creatine Kinase MB 0.3 ng/mL (0.0-2.4); Troponin I <0.012 ng/mL (0.000-0.034)
[2018-01-23] MEDS ORDERED: LEVOFLOXACIN 500 MG TAB PO SCH (09:00)
[2018-01-23] MEDS ORDERED: predniSONE 20 MG TAB PO SCH (09:00)
[2018-01-23] MEDS ORDERED: POTASSIUM CHLORIDE ER 20 MEQ TAB.ER PO SCH (09:15)
[2018-01-23] MEDS ORDERED: CLOPIDOGREL 75 MG TAB PO SCH (09:15)
[2018-01-23] MEDS ORDERED: ISOSORBIDE MONONITRATE ER 60 MG TAB.ER.24H PO SCH (09:15)
[2018-01-23] MEDS ORDERED: METOPROLOL SUCCINATE (ER) 100 MG TAB.ER.24H PO SCH (09:15)
--- NOTE | 2018-01-23 09:34 | CONS ---
CONSULTATION CHIEF COMPLAINT: Chest pain. HISTORY OF PRESENT ILLNESS: Sid is a 77-year-old gentleman known to me from my outpatient practice with history of coronary artery disease, status post multivessel angioplasty, COPD, non-insulin- dependent diabetes, dyslipidemia, who is admitted to hospital with chest pain. He also has cough and productive sputum and his chest discomfort is sharp, located to one spot, mild intensity and associated with diaphoresis and unrelated to exertion. Since being admitted, he has had 3 sets of cardiac enzymes which are all within normal limits. His EKG shows sinus rhythm with evidence of prior inferior wall myocardial infarction without any ST-T wave changes. His symptomatology seems to be related to the COPD exacerbation. PAST MEDICAL HISTORY: Significant for coronary artery disease, status post angioplasty, hypertension, dyslipidemia, hoh-juqxlkw-qjeexapct diabetes, and COPD. CURRENT MEDICATIONS: Include DuoNeb, Flonase, Singulair, Toprol-XL 100 daily, Zestril 2.5 mg daily, Imdur 60 mg daily, Advair, glipizide, Zocor, Plavix, Keppra, K-Dur, Prilosec. ALLERGIES: THE PATIENT IS ALLERGIC TO NORCO AND VITAMIN D. REVIEW OF SYSTEMS: HEENT is unremarkable. Cardiac as described above. Respiratory as described above. GI negative. : Negative. Allergy/Immunology: None. Skin negative. Musculoskeletal significant for arthritis. Psychosocial negative. Endocrine negative. Derm: Negative. Constitutional negative. Oncological negative. Rest of the system review is not relevant. EXAM: GENERAL: Comfortable at rest. VITAL SIGNS: Vital signs are stable. NECK: There is no jugular venous distention. CHEST exam reveals good air entry bilaterally. HEART exam reveals first and second heart sounds. No gallop. ABDOMEN is soft, nontender. EXTREMITIES: Exam of extremities did not reveal edema. Peripheral pulses are felt. ASSESSMENT: 1. Precordial chest pain. 2. Coronary artery disease, status post angioplasty. 3. Chronic obstructive pulmonary disease exacerbation. PLAN: Patient is doing well. Myocardial infarction is ruled out. Will continue with optimal medical therapy. Obtain a 2D echo on him this morning. He is stable to be discharged home from cardiac standpoint and we will arrange outpatient followup and if necessary an outpatient stress test if one had not been done within the last 12 months. MMODL / IJN: [id number] /
[2018-01-23] MEDS ORDERED: ALBUTEROL INHALER 60 PUFF/8 GM INHALER INHALATION PRN (11:34)
[2018-01-23] MEDS ORDERED: IPRATROPIUM-ALBUTEROL 3 ML NEB INHALATION PRN (11:34)
[2018-01-23 12:00] LABS: Glucose,Whole Blood 267 mg/dL (75-99)
[2018-01-23] MEDS ORDERED: levETIRAcetam 500 MG TAB PO SCH (12:00)
[2018-01-23] MEDS ORDERED: MONTELUKAST 10 MG TAB PO SCH (12:00)
[2018-01-23] MEDS ORDERED: MULTIVITAMINS, THERA 1 EACH TAB PO SCH (12:00)
[2018-01-23] MEDS ORDERED: PANTOPRAZOLE 40 MG TABLET PO SCH (12:00)
[2018-01-23 12:01] VITALS: BP 176/76; PULSE 95; RESP 18; TEMP 98.4
[2018-01-23] MEDS ORDERED: glipiZIDE 5 MG TAB PO SCH (12:30)
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
--- NOTE | 2018-01-23 15:15 | P.DS ---
Providers Date of admission: 01/22/18 20:53 Expected date of discharge: 01/23/18 Attending physician: Florian Rdz Consults: 01/22/18 20:51 Consult Physician Routine Consulting Provider: Jose Ashraf Consult Reason/Comments: CP Do you want consulting provider notified?: Yes Primary care physician: Florian Vencor Hospital Course: This is a 77-year-old male with past medical history noted below who presented to the hospital with chest pain. Patient said that his pain is mostly in the middle of his chest with no radiation. Pain was unrelated to exertion. Patient said that for the past 3 days having worsening cough and is attributing his pain to a lot of cough. Most of his cough is unproductive. He denies fevers or chills. His chest pain is mild in intensity. He was evaluated in the emergency room and 12-lead EKG showed no acute ischemic changes. Patient was placed on observation. Serial troponin were negative 3 sets. Chest x-ray was unremarkable. He is currently chest pain-free. Patient was seen and evaluated by cardiology. He was medically cleared for discharge. No further testing is recommended. Follow-up in the office as directed. Below is a list of his medical problems: -Coronary artery disease status post multiple stent placement -Essential hypertension: Blood pressure well-controlled -Underlying COPD with no evidence of exacerbation Type 2 diabetes mellitus -Hyperlipidemia Patient Condition at Discharge: Fair Plan - Discharge Summary New Discharge Prescriptions: No Action Ipratropium/Albuterol Sulfate [Duoneb 0.5 mg-3 mg/3 ml Soln] 3 ml INHALATION RT-QID PRN PRN Reason: Shortness Of Breath Metoprolol Succinate [Toprol XL] 100 mg PO DAILY Lisinopril [Zestril] 2.5 mg PO W/SUPPER Montelukast Sodium [Singulair] 10 mg PO DAILY Nitroglycerin Sl Tabs [Nitrostat] 0.4 mg SUBLINGUAL Q5M PRN PRN Reason: Pain Albuterol Sulfate [Proair Hfa] 2 puff INHALATION RT-Q6H PRN PRN Reason: Shortness Of Breath Simvastatin [Zocor] 20 mg PO HS Clopidogrel [Plavix] 75 mg PO DAILY Potassium Chloride [Klor-Con 20] 20 meq PO DAILY Omeprazole [PriLOSEC] 20 mg PO DAILY Multivitamins, Thera [Multivitamin (formulary)] 1 tab PO DAILY levETIRAcetam [Keppra] 500 mg PO Q12HR #60 tab Fluticasone/Salmeterol [Advair 500-50 Diskus] 1 puff INHALATION RT-BID Fluticasone Nasal [place] [Flonase Nasal [place]] 1 spray EA NOSTRIL BID diphenhydrAMINE HCL [Benadryl] 25 mg PO HS glipiZIDE [Glucotrol] 5 mg PO AC-TID tab Isosorbide Mononitrate ER [Imdur] 60 mg PO DAILY tab.er.24h Discharge Medication List Albuterol Sulfate [Proair Hfa] 2 puff INHALATION RT-Q6H PRN 01/11/14 [History] Clopidogrel [Plavix] 75 mg PO DAILY 01/11/14 [History] Ipratropium/Albuterol Sulfate [Duoneb 0.5 mg-3 mg/3 ml Soln] 3 ml INHALATION RT- QID PRN 01/11/14 [History] Lisinopril [Zestril] 2.5 mg PO W/SUPPER 01/11/14 [History] Metoprolol Succinate [Toprol XL] 100 mg PO DAILY 01/11/14 [History] Montelukast Sodium [Singulair] 10 mg PO DAILY 01/11/14 [History] Multivitamins, Thera [Multivitamin (formulary)] 1 tab PO DAILY 01/11/14 [History ] Nitroglycerin Sl Tabs [Nitrostat] 0.4 mg SUBLINGUAL Q5M PRN 01/11/14 [History] Omeprazole [PriLOSEC] 20 mg PO DAILY 01/11/14 [History] Potassium Chloride [Klor-Con 20] 20 meq PO DAILY 01/11/14 [History] Simvastatin [Zocor] 20 mg PO HS 01/11/14 [History] levETIRAcetam [Keppra] 500 mg PO Q12HR #60 tab 01/13/14 [Rx] Fluticasone/Salmeterol [Advair 500-50 Diskus] 1 puff INHALATION RT-BID 03/28/15 [History] Fluticasone Nasal [place] [Flonase Nasal [place]] 1 spray EA NOSTRIL BID 02/25/16 [ History] diphenhydrAMINE HCL [Benadryl] 25 mg PO HS 07/22/16 [History] Isosorbide Mononitrate ER [Imdur] 60 mg PO DAILY tab.er.24h 08/05/17 [Rx] glipiZIDE [Glucotrol] 5 mg PO AC-TID tab 08/05/17 [Rx] Follow up Appointment(s)/Referral(s): Florian Rdz MD [Primary Care Provider] - 1-2 days Discharge Disposition: HOME SELF-CARE
[2018-01-23] MEDS ORDERED: LISINOPRIL 2.5 MG TAB PO SCH (17:30)
[2018-01-23] MEDS ORDERED: SYMBICORT 160-4.5 MCG INHALER INHALATION SCH (20:00)
[2018-01-23] MEDS ORDERED: ATORVASTATIN 10 MG TAB PO SCH (21:00)
[2018-01-23] MEDS ORDERED: FLUTICASONE 50MCG/SPRAY NASAL 16GM EA NOSTRIL SCH (21:00)
== END 2018-01-23 16:33 | disposition home or self-care (01) ==
LOC: EC 19:02 → 3OBS 20:53
PROVIDERS: ADMIT Internal Medicine; ATTEND Internal Medicine
DX: R07.89 Other chest pain (principal); I25.10 Atherosclerotic heart disease of native coronary artery without angina pectoris; E11.9 Type 2 diabetes mellitus without complications; E78.5 Hyperlipidemia, unspecified; G40.909 Epilepsy, unspecified, not intractable, without status epilepticus; H91.92 Unspecified hearing loss, left ear; I10 Essential (primary) hypertension; Z79.02 Long term (current) use of antithrombotics/antiplatelets; Z79.84 Long term (current) use of oral hypoglycemic drugs; Z79.899 Other long term (current) drug therapy; Z80.0 Family history of malignant neoplasm of digestive organs; Z80.8 Family history of malignant neoplasm of other organs or systems; Z82.0 Family history of epilepsy and other diseases of the nervous system; Z85.46 Personal history of malignant neoplasm of prostate; Z85.828 Personal history of other malignant neoplasm of skin; Z86.14 Personal history of Methicillin resistant Staphylococcus aureus infection; Z86.73 Personal history of transient ischemic attack (TIA), and cerebral infarction without residual deficits; Z87.891 Personal history of nicotine dependence; Z95.5 Presence of coronary angioplasty implant and graft; I25.2 Old myocardial infarction
CPT/HCPCS: 96374; 99285; 36415; 94640 ×3; 93005; 83880; 80053; 82550 ×2; 82553 ×2; 83735; 84484 ×2; 85025; 85610; 85730; 71046; G0378 ×2; J1100; J7512

== ENCOUNTER → 2018-04-07 | Outpatient (CLI) | payer MEDICARE ==
--- NOTE | 2018-04-07 14:39 | PN ---
PROGRESS NOTE DATE OF SERVICE: 04/07/2018. 78-year-old gentleman has been followed [facility] for treatment of obstructive sleep apnea-hypopnea syndrome. Recently patient had CPAP titration and after that receive new CPAP unit. This is his first visit with a new CPAP unit. The patient is able to use CPAP equipment every night without any significant problems. He likes new machine. Sleeps well with that. Mary D Sleepiness Scale today is 10. I checked his CPAP unit CPAP pressure is 9 cm of water. Usage is 100% of the time more than 4 hours. Average usage is 9.2 hours per night. Apnea-hypopnea index is 3.7, which is totally perfect. Leak increased to 50 L/minute. The patient is using the Mirage FX nasal mask. The patient does not know if he is open his mouth during the sleep. Occasionally dry mouth. MEDICATIONS: Klor-Con, Prilosec, glipizide, Plavix, simvastatin, Advair, ProAir, nitroglycerin, Imdur, metoprolol, lisinopril, Benadryl, Flonase, vitamins. PHYSICAL EXAM: GENERAL Patient in no distress. VITAL SIGNS BP 131/46, HR 55, RR 14, weight 209.4, temp 96.9, oxygen saturation on room air 95%. HEENT PERRLA, EOMI, evaluation of oropharynx showed low position of soft palate. NECK Supple, no JVD. Thyroid is not palpable. LUNGS Clear to percussion and to auscultation. Good air exchange. No wheezing or rhonchi. HEART S1, S2 regular. No murmurs, gallops, or rubs. ABDOMEN Slightly obese. Soft and nontender. Bowel sounds are present. No organomegaly appreciated. EXTREMITIES 1+ ankle edema. No clubbing or cyanosis. 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 Cranial nerves 2 to 7 intact. There is no fasciculation or atrophy. noted. No focal deficits observed. IMPRESSION: 1. Obstructive sleep apnea-hypopnea syndrome on full control with CPAP at 9 cm of water. Patient demonstrated 100% compliance with treatment benefitting from treatment. 2. Hypertension. 3. History of mini-stroke. 4. Diabetes mellitus. 5. History of chronic obstructive pulmonary disease. 6. Hyperlipidemia. 7. History of prostate carcinoma, status post surgical treatment. 8. Status post left knee replacement. PLAN: 1. Patient will continue to use his CPAP equipment every night for the whole night. 2. We will maintain prescription for all necessary CPAP supplies. Patient using Mirage FX nasal mask. 3. Prescription for chin strap to prevent possible opening mouth and subsequently leak of the air. 4. Losing weight. 5. No driving if feeling sleepiness. 6. Followup visit in 1 year or earlier if patient has any problems. Thank you very much for allowing me to participate in management of your patient. Sincerely, Valentin Ramos MD, PhD, FAASM Diplomat of [employer] [facility] [place] MMODL / IJN: [id number] /
== END | disposition home or self-care (01) ==
LOC: SLEEP 13:17
PROVIDERS: ATTEND Internal Medicine
DX: G47.33 Obstructive sleep apnea (adult) (pediatric) (principal); I10 Essential (primary) hypertension; E11.9 Type 2 diabetes mellitus without complications; J44.9 Chronic obstructive pulmonary disease, unspecified; E78.5 Hyperlipidemia, unspecified; Z85.46 Personal history of malignant neoplasm of prostate; Z96.652 Presence of left artificial knee joint; Z98.890 Other specified postprocedural states; Z99.89 Dependence on other enabling machines and devices; Z79.02 Long term (current) use of antithrombotics/antiplatelets; Z86.73 Personal history of transient ischemic attack (TIA), and cerebral infarction without residual deficits; Z79.899 Other long term (current) drug therapy; Z79.84 Long term (current) use of oral hypoglycemic drugs

== ENCOUNTER 2018-04-29 18:38 | Inpatient (IN) | payer MEDICARE ==
[2018-04-29] MEDS ORDERED: IPRATROPIUM-ALBUTEROL 3 ML NEB INHALATION STA (18:42)
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
[2018-04-29 19:21] LABS: Basophils # (A) 0.1 k/uL (0-0.2); Basophils % (A) 1 %; Eosinophils # (A) 0.9 k/uL (0-0.7); Eosinophils % (A) 10 %; HGB 14.5 gm/dL (13.0-17.5); Lymphocytes # (A) 3.5 k/uL (1.0-4.8); Lymphocytes % (A) 38 %; MCH 28.3 pg (25.0-35.0); MCHC 32.2 g/dL (31.0-37.0); MCV 87.7 fL (80.0-100.0); Mean Platelet Volume 6.2; Monocytes # (A) 0.6 k/uL (0-1.0); Monocytes % (A) 7 %; Neutrophils # (A) 3.9 k/uL (1.3-7.7); Neutrophils % (A) 41 %; Platelet Count 278 k/uL (150-450); RBC 5.13 m/uL (4.30-5.90); WBC 9.3 k/uL (3.8-10.6)
[2018-04-29 19:32] LABS: ALT 29 U/L (21-72); AST 20 U/L (17-59); Albumin 4.2 g/dL (3.5-5.0); Alkaline Phosphatase 59 U/L (38-126); Anion Gap 9 mmol/L; Blood Urea Nitrogen 10 mg/dL (9-20); Calcium 9.3 mg/dL (8.4-10.2); Carbon Dioxide 27 mmol/L (22-30); Chloride 100 mmol/L (98-107); Glucose 173 mg/dL (74-99); Magnesium 2.1 mg/dL (1.6-2.3); Potassium 4.3 mmol/L (3.5-5.1); Sodium 136 mmol/L (137-145); Total Bilirubin 0.4 mg/dL (0.2-1.3); Total Protein 7.1 g/dL (6.3-8.2)
[2018-04-29 19:34] LABS: Creatine Kinase 37 U/L (55-170)
[2018-04-29 19:36] LABS: Prothrombin Time 10.1 sec (9.0-12.0)
[2018-04-29 19:48] LABS: Creatine Kinase MB 0.7 ng/mL (0.0-2.4); Troponin I <0.012 ng/mL (0.000-0.034)
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
[2018-04-29] MEDS ORDERED: IPRATROPIUM-ALBUTEROL 3 ML NEB INHALATION PRN (20:36)
[2018-04-29 22:27] VITALS: BMI 29.0
[2018-04-29] MEDS: ATORVASTATIN 10 MG TAB PO SCH (23:23)
[2018-04-29] MEDS: diphenhydrAMINE 25 MG CAP PO SCH (23:23)
[2018-04-30] MEDS: methylPREDNISolone SOD SUCCI 125 MG/2 ML VIAL IV SCH ×4 (05:50→18:18)
[2018-04-30] MEDS: IPRATROPIUM-ALBUTEROL 3 ML NEB INHALATION SCH ×4 (07:19→20:11)
[2018-04-30] MEDS: MONTELUKAST 10 MG TAB PO SCH (08:36)
[2018-04-30] MEDS: ISOSORBIDE MONONITRATE ER 60 MG TAB.ER.24H PO SCH (08:36)
[2018-04-30] MEDS: glipiZIDE 5 MG TAB PO SCH ×3 (08:36→17:42)
[2018-04-30] MEDS: METOPROLOL SUCCINATE (ER) 100 MG TAB.ER.24H PO SCH (08:36)
[2018-04-30] MEDS: CLOPIDOGREL 75 MG TAB PO SCH (08:36)
[2018-04-30] MEDS: AZITHROMYCIN 500 MG TAB PO SCH (08:36)
[2018-04-30 08:47] LABS: Basophils % (A) 0 %; Eosinophils # (A) 0.1 k/uL (0-0.7); Eosinophils % (A) 1 %; HCT 48.2 % (39.0-53.0); HGB 15.6 gm/dL (13.0-17.5); Lymphocytes # (A) 1.5 k/uL (1.0-4.8); Lymphocytes % (A) 11 %; MCH 28.4 pg (25.0-35.0); MCHC 32.3 g/dL (31.0-37.0); MCV 87.8 fL (80.0-100.0); Mean Platelet Volume 6.2; Monocytes # (A) 0.2 k/uL (0-1.0); Monocytes % (A) 2 %; Neutrophils # (A) 11.1 k/uL (1.3-7.7); Neutrophils % (A) 86 %; Platelet Count 311 k/uL (150-450); RBC 5.49 m/uL (4.30-5.90); WBC 12.9 k/uL (3.8-10.6)
[2018-04-30 09:16] LABS: ALT 27 U/L (21-72); AST 22 U/L (17-59); Albumin 4.3 g/dL (3.5-5.0); Alkaline Phosphatase 61 U/L (38-126); Anion Gap 11 mmol/L; Blood Urea Nitrogen 14 mg/dL (9-20); Calcium 9.7 mg/dL (8.4-10.2); Carbon Dioxide 25 mmol/L (22-30); Chloride 100 mmol/L (98-107); Glucose 286 mg/dL (74-99); Potassium 5.2 mmol/L (3.5-5.1); Sodium 136 mmol/L (137-145); Total Bilirubin 0.5 mg/dL (0.2-1.3); Total Protein 7.4 g/dL (6.3-8.2)
[2018-04-30] MEDS ORDERED: guaiFENesin 600 MG TABLET.ER PO PRN (10:33)
[2018-04-30 10:35] LABS: Creatine Kinase 35 U/L (55-170)
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
[2018-04-30 10:47] LABS: Creatine Kinase MB 1.1 ng/mL (0.0-2.4); Troponin I <0.012 ng/mL (0.000-0.034)
[2018-04-30 10:58] LABS: Glucose,Whole Blood 247 mg/dL (75-99)
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
[2018-04-30] MEDS: INSULIN ASPART 100 UNIT/ML 1 ML 10 ML VIAL SQ SCH ×3 (12:43→21:08)
[2018-04-30 17:42] LABS: Glucose,Whole Blood 219 mg/dL (75-99)
[2018-04-30] MEDS: LISINOPRIL 2.5 MG TAB PO SCH (17:42)
[2018-04-30 19:27] LABS: Hemoglobin A1C 7.9 % (4.0-6.0)
[2018-04-30 20:10] LABS: Glucose,Whole Blood 262 mg/dL (75-99)
[2018-04-30] MEDS ORDERED: INSULIN ASPART 100 UNIT/ML 1 ML 10 ML VIAL SQ ONE (21:04)
[2018-04-30] MEDS: diphenhydrAMINE 25 MG CAP PO SCH (22:45)
[2018-04-30] MEDS: ATORVASTATIN 10 MG TAB PO SCH (22:45)
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
[2018-05-01] MEDS: methylPREDNISolone SOD SUCCI 125 MG/2 ML VIAL IV SCH ×4 (01:34→18:08)
[2018-05-01 06:54] LABS: Glucose,Whole Blood 238 mg/dL (75-99)
[2018-05-01] MEDS: glipiZIDE 5 MG TAB PO SCH ×3 (07:44→18:08)
[2018-05-01] MEDS: FAMOTIDINE 20 MG TAB PO SCH (07:44)
[2018-05-01] MEDS: INSULIN ASPART 100 UNIT/ML 1 ML 10 ML VIAL SQ SCH ×4 (07:44→22:15)
[2018-05-01] MEDS: METOPROLOL SUCCINATE (ER) 100 MG TAB.ER.24H PO SCH (07:44)
[2018-05-01] MEDS: AZITHROMYCIN 500 MG TAB PO SCH (07:44)
[2018-05-01] MEDS: ENOXAPARIN 40 MG/0.4 ML SYRINGE SQ SCH (07:44)
[2018-05-01] MEDS: MONTELUKAST 10 MG TAB PO SCH (07:44)
[2018-05-01] MEDS: ISOSORBIDE MONONITRATE ER 60 MG TAB.ER.24H PO SCH (07:44)
[2018-05-01] MEDS: CLOPIDOGREL 75 MG TAB PO SCH (07:51)
[2018-05-01 08:17] LABS: Basophils % (A) 0 %; Eosinophils % (A) 0 %; HCT 45.4 % (39.0-53.0); HGB 14.8 gm/dL (13.0-17.5); Lymphocytes # (A) 1.5 k/uL (1.0-4.8); Lymphocytes % (A) 9 %; MCH 28.5 pg (25.0-35.0); MCHC 32.7 g/dL (31.0-37.0); MCV 87.1 fL (80.0-100.0); Mean Platelet Volume 6.7; Monocytes # (A) 0.5 k/uL (0-1.0); Monocytes % (A) 3 %; Neutrophils # (A) 14.5 k/uL (1.3-7.7); Neutrophils % (A) 87 %; Platelet Count 312 k/uL (150-450); RBC 5.21 m/uL (4.30-5.90); WBC 16.6 k/uL (3.8-10.6)
[2018-05-01 08:26] LABS: ALT 23 U/L (21-72); AST 28 U/L (17-59); Albumin 3.9 g/dL (3.5-5.0); Alkaline Phosphatase 60 U/L (38-126); Anion Gap 11 mmol/L; Blood Urea Nitrogen 18 mg/dL (9-20); Calcium 9.1 mg/dL (8.4-10.2); Carbon Dioxide 25 mmol/L (22-30); Chloride 100 mmol/L (98-107); Glucose 265 mg/dL (74-99); Potassium 4.5 mmol/L (3.5-5.1); Sodium 136 mmol/L (137-145); Total Bilirubin 0.4 mg/dL (0.2-1.3); Total Protein 6.7 g/dL (6.3-8.2)
[2018-05-01] MEDS: IPRATROPIUM-ALBUTEROL 3 ML NEB INHALATION SCH ×4 (08:35→20:54)
--- NOTE | 2018-05-01 09:16 | P.PN ---
Subjective Progress Note Date: 05/01/18 Principal diagnosis: Acute COPD exacerbation, acute bronchitis, chest tightness and pain likely related to bronchitis leading to musculoskeletal chest wall pain, coronary artery disease with history of stent placement, obstructive sleep apnea, type 2 diabetes mellitus, hypertension hypertensive cardiovascular disease, prostate cancer, dyslipidemia 05/01/2018, patient seen eval examined during the rounds clinically patient is doing better in terms of breathing cuff congestion shortness of breath slightly better she is still have thick tenacious sputum production he does get short of breath on activity and exertion medications reviewed laboratory data reviewed, blood culture no growth so far, sputum culture many gram-positive cocci are seen , patient is on Zithromax would recommend to add Rocephin as well Mr. Richey is a 78-year-old with history of smoking in the past he also has a component of chronic persistent asthma and severe COPD he presented into the hospital with increased cough congestion or shortness of breath symptoms started about a week prior to coming into the hospital has been progressive patient has thick tenacious sputum with those problem was brought into the emergency department evaluated subsequent admitted to the hospital,patient extensive cardiac history. Also ordered to place patient on telemetry. Patient' s home Plavix dose has been reordered. She placed on sliding scale insulin due to steroid and elevated blood sugar. At that time patient does complain of chest discomfort along with cough. Patient states cough kept him up all night. Mucinex has been ordered. Patient denies nausea vomiting or diarrhea. Patient denies any urinary burning or frequency. Patient has a known past medical history of asthma, coronary artery disease, prostate cancer, COPD, CVA and TIA, diabetes mellitus, hyperlipidemia, hypertension, myocardial infarction with multiple stents. Osteoarthritis, seizure disorder and back surgery. Chest x-ray completed showing no active cardiopulmonary disease. Minimal pleural scarring at the left lung base without change. Objective - Vital Signs Vital signs: Vital Signs Temp 97.8 F 05/01/18 05:00 Pulse 88 05/01/18 08:46 Resp 16 05/01/18 05:00 BP 127/65 05/01/18 05:00 Pulse Ox 93 L 05/01/18 05:00 Intake & Output 04/30/18 05/01/18 05/01/18 18:59 06:59 18:59 Intake Total 10 480 Balance 10 480 Weight 81.647 kg Intake: IV 10 flush 10 Oral 480 Other: Voiding Method Toilet Toilet # Voids 2 - Exam - Constitutional General appearance: average body habitus, cooperative, disheveled, mild distress - EENT Eyes: EOMI, PERRLA, normal appearance ENT: hearing grossly normal, normal oropharynx Ears: bilateral: normal - Neck Carotids: bilateral: upstroke normal Thyroid: bilateral: normal size - Respiratory Respiratory: bilateral: diminished, wheezing (On fours 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 homologue patient did go into bouts of coughing) - Cardiovascular Rhythm: regular Heart sounds: normal: S1, S2 - Gastrointestinal General gastrointestinal: soft - Integumentary Integumentary: normal, normal turgor - Musculoskeletal Musculoskeletal: gait normal, generalized weakness, strength equal bilaterally - Psychiatric Psychiatric: A&O x's 3, appropriate affect, intact judgment & insight - Labs CBC & Chem 7: 05/01/18 07:39 05/01/18 07:39 Labs: Abnormal Lab Results - Last 24 Hours (Table) 04/30/18 04/30/18 04/30/18 Range/Units 08:32 08:32 10:50 WBC (3.8-10.6) k/uL Neutrophils # (1.3-7.7) k/uL Sodium 136 L (137-145) mmol/L Potassium 5.2 H (3.5-5.1) mmol/L Glucose 286 H (74-99) mg/dL POC Glucose (mg/dL) (75-99) mg/dL Hemoglobin A1c 7.9 H (4.0-6.0) % Total Creatine Kinase 35 L (55-170) U/L 04/30/18 04/30/18 04/30/18 Range/Units 10:57 17:30 20:08 WBC (3.8-10.6) k/uL Neutrophils # (1.3-7.7) k/uL Sodium (137-145) mmol/L Potassium (3.5-5.1) mmol/L Glucose (74-99) mg/dL POC Glucose (mg/dL) 247 H 219 H 262 H (75-99) mg/dL Hemoglobin A1c (4.0-6.0) % Total Creatine Kinase (55-170) U/L 05/01/18 05/01/18 05/01/18 Range/Units 06:53 07:39 07:39 WBC 16.6 H (3.8-10.6) k/uL Neutrophils # 14.5 H (1.3-7.7) k/uL Sodium 136 L (137-145) mmol/L Potassium (3.5-5.1) mmol/L Glucose 265 H (74-99) mg/dL POC Glucose (mg/dL) 238 H (75-99) mg/dL Hemoglobin A1c (4.0-6.0) % Total Creatine Kinase (55-170) U/L Microbiology - Last 24 Hours (Table) 04/30/18 15:17 Gram Stain - Preliminary Sputum 04/29/18 19:05 Blood Culture - Preliminary Blood No Growth after 24 hours Assessment and Plan Assessment: Acute COPD exacerbation Acute purulent tracheal bronchitis Chest tightness and pain likely related to COPD exacerbation Mp artery disease history of multiple stent placement Obstructive sleep apnea Type 2 diabetes mellitus Hypertension hypertensive cardiovascular disease Prostate cancer Dyslipidemia Plan: Agree with broad-spectrum antibiotics, will add IV Rocephin based and sputum studies Continue bronchodilators IV steroids Monitor sugar with sliding scale and adjust accordingly continue oral hypoglycemic agent DVT and peptic ulcer disease prophylaxis Further recommendations pending plan of care as per clinical response of the patient Patient advised to bring CPAP machine from home and use accordingly Time with Patient: Greater than 30
--- NOTE | 2018-05-01 10:50 | ECHOF ---
Referral Reason:cp MEASUREMENTS -------- HEIGHT: 167.6 cm WEIGHT: 81.6 kg BP: 140/71 RVIDd: 3.0 cm (< 3.3) IVSd: 1.0 cm (0.6 - 1.1) LVIDd: 3.6 cm (3.9 - 5.3) LVPWd: 1.1 cm (0.6 - 1.1) IVSs: 1.1 cm LVIDs: 1.7 cm LVPWs: 1.2 cm LAESV Index (A-L): 28.20 ml/m Ao Diam: 3.9 cm (2.0 - 3.7) AV Cusp: 1.9 cm (1.5 - 2.6) LA Diam: 3.3 cm (2.7 - 3.8) MV E Alexis: 0.64 m/s MV DecT: 327 ms MV A Alexis: 1.16 m/s MV E/A Ratio: 0.55 FINDINGS -------- Sinus rhythm. This was a technically difficult study with suboptimal views. The left ventricular size is normal. There is borderline concentric left ventricular hypertrophy. Overall left ventricular systolic function is normal with, an EF between 55 - 60 %. The right ventricle is normal in size and function. Normal LA size by volume 22+/-6 ml/m2. The right atrium is normal in size. 3 ml of Lumason was utilized for enhancement of images. Aortic valve is trileaflet and is mildly thickened. Trace to mild aortic regurgitation. There is no evidence of aortic stenosis. The mitral valve leaflets are mildly thickened. There is trace to mild mitral regurgitation. Trace tricuspid regurgitation present. Right ventricular systolic pressure is normal at < 35 mmHg. There is no evidence of pulmonary hypertension. The pulmonic valve was not well visualized. The aortic root size is normal. Normal inferior vena cava with normal inspiratory collapse consistent with estimated right atrial pre ssure of 5 mmHg. There is no pericardial effusion. CONCLUSIONS -------- 1. Sinus rhythm. 2. This was a technically difficult study with suboptimal views. 3. The left ventricular size is normal. 4. There is borderline concentric left ventricular hypertrophy. 5. Overall left ventricular systolic function is normal with, an EF between 55 - 60 %. 6. Normal LA size by volume 22+/-6 ml/m2. 7. 3 ml of Lumason was utilized for enhancement of images. 8. Aortic valve is trileaflet and is mildly thickened. 9. Trace to mild aortic regurgitation. 10. The mitral valve leaflets are mildly thickened. 11. There is trace to mild mitral regurgitation. 12. Trace tricuspid regurgitation present. 13. Right ventricular systolic pressure is normal at < 35 mmHg. 14. There is no evidence of pulmonary hypertension. 15. The pulmonic valve was not well visualized. 16. The aortic root size is normal. 17. There is no pericardial effusion. [employer]: Davy Delgado RDCS
[2018-05-01 11:07] LABS: Glucose,Whole Blood 381 mg/dL (75-99)
--- NOTE | 2018-05-01 12:11 | P.PN ---
Subjective Progress Note Date: 05/01/18 This is a 78-year-old male who presented to the emergency room complaining of worsening cough and dyspnea over the past week. Patient states he is having increased sputum production. Patient has a known past medical history of asthma , coronary artery disease, prostate cancer, COPD, CVA and TIA, diabetes mellitus , hyperlipidemia, hypertension, myocardial infarction with multiple stents. Osteoarthritis, seizure disorder and back surgery. Chest x-ray completed showing no active cardiopulmonary disease. Minimal pleural scarring at the left lung base without change. Normal heart. Patient started on IV steroid Solu-Medrol 60 mg every 6 hours. Patient also started on Zithromax for antibiotics. Dr. Stanley for pulmonary consulted. Upon examination patient complaining of chest pain. EKG, cardiac profile, d-dimer and cardiology consult ordered to patient's extensive cardiac history. Also ordered to place patient on telemetry. Patient's home Plavix dose has been reordered. She placed on sliding scale insulin due to steroid and elevated blood sugar. At that time patient does complain of chest discomfort along with cough. Patient states cough kept him up all night. Mucinex has been ordered. Patient denies nausea vomiting or diarrhea. Patient denies any urinary burning or frequency. On 05/01/2018 patient is alert and oriented 3 in no apparent distress shortness of breath has improved he is maintained on IV Solu-Medrol 60 mg every 6 hours and inhaled bronchodilators he is also maintained on IV antibiotic patient improved significantly since yesterday he is still having severe shortness of breath with any activity there is no chest pain no nausea or vomiting no abdominal pain and no urinary symptoms. Objective - Vital Signs Vital signs: Vital Signs Temp 97.8 F 05/01/18 05:00 Pulse 88 05/01/18 12:04 Resp 16 05/01/18 05:00 BP 127/65 05/01/18 05:00 Pulse Ox 93 L 05/01/18 05:00 Intake & Output 04/30/18 05/01/18 05/01/18 18:59 06:59 18:59 Intake Total 10 480 Balance 10 480 Weight 81.647 kg Intake: IV 10 flush 10 Oral 480 Other: Voiding Method Toilet Toilet Toilet # Voids 2 - Exam Head normocephalic Neck supple Lungs expiratory wheezing throughout. Productive cough Heart regular rate and rhythm S1-S2, no rub or gallop Abdomen is soft nontender nondistended positive bowel sounds no hepatosplenomegaly Extremities no edema Neuro alert and orientated to 3 - Labs CBC & Chem 7: 05/01/18 07:39 05/01/18 07:39 Labs: Abnormal Lab Results - Last 24 Hours (Table) 04/30/18 04/30/18 04/30/18 Range/Units 10:50 17:30 20:08 WBC (3.8-10.6) k/uL Neutrophils # (1.3-7.7) k/uL Sodium (137-145) mmol/L Glucose (74-99) mg/dL POC Glucose (mg/dL) 219 H 262 H (75-99) mg/dL Hemoglobin A1c 7.9 H (4.0-6.0) % 05/01/18 05/01/18 05/01/18 Range/Units 06:53 07:39 07:39 WBC 16.6 H (3.8-10.6) k/uL Neutrophils # 14.5 H (1.3-7.7) k/uL Sodium 136 L (137-145) mmol/L Glucose 265 H (74-99) mg/dL POC Glucose (mg/dL) 238 H (75-99) mg/dL Hemoglobin A1c (4.0-6.0) % 05/01/18 Range/Units 11:05 WBC (3.8-10.6) k/uL Neutrophils # (1.3-7.7) k/uL Sodium (137-145) mmol/L Glucose (74-99) mg/dL POC Glucose (mg/dL) 381 H (75-99) mg/dL Hemoglobin A1c (4.0-6.0) % Microbiology - Last 24 Hours (Table) 04/30/18 15:17 Gram Stain - Preliminary Sputum 04/29/18 19:05 Blood Culture - Preliminary Blood No Growth after 24 hours Assessment and Plan Plan: 1. Dyspnea related to COPD exacerbation and acute bronchitis. Chest x-ray completed showing no active cardiopulmonary disease. Minimum pleural scarring at the left lung base without change. Normal heart. Patient started on IV Solu -Medrol 60 mg every 6 hours and albuterol breathing treatments. Dr. Stanley per pulmonary consulted. Patient started on azithromycin. Blood and sputum cultures have been ordered. Mucinex has been ordered. 2. Chest pain. Possibly related to coughing. EKG completed in emergency room showing sinus rhythm with first-degree AV block septal infarct, age undetermined. Repeat EKG has been ordered. Troponins and d-dimer level ordered. Cardiology consulted due to extensive cardiac history. Telemetry has been ordered for patient 3. History of myocardial infarction with 4 stents to RCA. Cardiology services have been consulted. Home Plavix resume 4. Diabetes mellitus type 2. Home glipizide ordered. Sliding scale added due to steroid use 5. History of hyperlipidemia 6. History of essential hypertension 7. History of seizure disorder 8. History of prostate cancer DVT prophylaxis Lovenox. GI prophylaxis Pepcid Patient was seen and examined on 05/01/2018 medication and labs were reviewed Continue was current management, patient is improving but not ready for discharge yet.
[2018-05-01 17:20] LABS: Glucose,Whole Blood 221 mg/dL (75-99)
[2018-05-01] MEDS: LISINOPRIL 2.5 MG TAB PO SCH (18:11)
[2018-05-01 20:12] LABS: Glucose,Whole Blood 252 mg/dL (75-99)
[2018-05-01] MEDS: diphenhydrAMINE 25 MG CAP PO SCH (22:15)
[2018-05-01] MEDS: ATORVASTATIN 10 MG TAB PO SCH (22:15)
[2018-05-02] MEDS: methylPREDNISolone SOD SUCCI 125 MG/2 ML VIAL IV SCH ×5 (00:28→23:18)
[2018-05-02] MEDS: IPRATROPIUM-ALBUTEROL 3 ML NEB INHALATION SCH ×4 (07:10→19:48)
[2018-05-02 07:12] LABS: Glucose,Whole Blood 240 mg/dL (75-99)
[2018-05-02 07:29] LABS: Basophils % (A) 0 %; Eosinophils # (A) 0.1 k/uL (0-0.7); Eosinophils % (A) 1 %; HCT 43.2 % (39.0-53.0); HGB 14.3 gm/dL (13.0-17.5); Lymphocytes # (A) 1.2 k/uL (1.0-4.8); Lymphocytes % (A) 9 %; MCHC 33.2 g/dL (31.0-37.0); MCV 87.3 fL (80.0-100.0); Mean Platelet Volume 6.7; Monocytes # (A) 0.5 k/uL (0-1.0); Monocytes % (A) 4 %; Neutrophils % (A) 87 %; Platelet Count 272 k/uL (150-450); RBC 4.95 m/uL (4.30-5.90); RDW 13.1 % (11.5-15.5); WBC 13.9 k/uL (3.8-10.6)
[2018-05-02 07:45] LABS: ALT 30 U/L (21-72); AST 28 U/L (17-59); Albumin 3.7 g/dL (3.5-5.0); Alkaline Phosphatase 51 U/L (38-126); Anion Gap 9 mmol/L; Blood Urea Nitrogen 17 mg/dL (9-20); Calcium 8.9 mg/dL (8.4-10.2); Carbon Dioxide 26 mmol/L (22-30); Chloride 101 mmol/L (98-107); Glucose 242 mg/dL (74-99); Potassium 4.1 mmol/L (3.5-5.1); Sodium 136 mmol/L (137-145); Total Bilirubin 0.5 mg/dL (0.2-1.3); Total Protein 6.3 g/dL (6.3-8.2)
[2018-05-02] MEDS: INSULIN ASPART 100 UNIT/ML 1 ML 10 ML VIAL SQ SCH ×4 (08:05→21:48)
[2018-05-02] MEDS: CLOPIDOGREL 75 MG TAB PO SCH (08:06)
[2018-05-02] MEDS: METOPROLOL SUCCINATE (ER) 100 MG TAB.ER.24H PO SCH (08:06)
[2018-05-02] MEDS: ENOXAPARIN 40 MG/0.4 ML SYRINGE SQ SCH (08:06)
[2018-05-02] MEDS: ISOSORBIDE MONONITRATE ER 60 MG TAB.ER.24H PO SCH (08:06)
[2018-05-02] MEDS: LISINOPRIL 2.5 MG TAB PO SCH (08:06)
[2018-05-02] MEDS: AZITHROMYCIN 500 MG TAB PO SCH (08:06)
[2018-05-02] MEDS: glipiZIDE 5 MG TAB PO SCH ×3 (08:06→17:46)
[2018-05-02] MEDS: FAMOTIDINE 20 MG TAB PO SCH (08:06)
--- NOTE | 2018-05-02 09:12 | P.PN ---
Subjective Progress Note Date: 05/02/18 Principal diagnosis: Acute COPD exacerbation, acute bronchitis, chest tightness and pain likely related to bronchitis leading to musculoskeletal chest wall pain, coronary artery disease with history of stent placement, obstructive sleep apnea, type 2 diabetes mellitus, hypertension hypertensive cardiovascular disease, prostate cancer, dyslipidemia 05/02/2018, patient seen eval examined during the rounds clinically patient is doing better less short of breath cough congestion is improved still have mild wheezing present 05/01/2018, patient seen eval examined during the rounds clinically patient is doing better in terms of breathing cuff congestion shortness of breath slightly better she is still have thick tenacious sputum production he does get short of breath on activity and exertion medications reviewed laboratory data reviewed, blood culture no growth so far, sputum culture many gram-positive cocci are seen , patient is on Zithromax would recommend to add Rocephin as well Mr. Diaz is a 78-year-old with history of smoking in the past he also has a component of chronic persistent asthma and severe COPD he presented into the hospital with increased cough congestion or shortness of breath symptoms started about a week prior to coming into the hospital has been progressive patient has thick tenacious sputum with those problem was brought into the emergency department evaluated subsequent admitted to the hospital,patient extensive cardiac history. Also ordered to place patient on telemetry. Patient' s home Plavix dose has been reordered. She placed on sliding scale insulin due to steroid and elevated blood sugar. At that time patient does complain of chest discomfort along with cough. Patient states cough kept him up all night. Mucinex has been ordered. Patient denies nausea vomiting or diarrhea. Patient denies any urinary burning or frequency. Patient has a known past medical history of asthma, coronary artery disease, prostate cancer, COPD, CVA and TIA, diabetes mellitus, hyperlipidemia, hypertension, myocardial infarction with multiple stents. Osteoarthritis, seizure disorder and back surgery. Chest x-ray completed showing no active cardiopulmonary disease. Minimal pleural scarring at the left lung base without change. Objective - Vital Signs Vital signs: Vital Signs Temp 97 F L 05/02/18 05:00 Pulse 84 05/02/18 07:22 Resp 17 05/02/18 05:00 BP 129/67 05/02/18 05:00 Pulse Ox 94 L 05/02/18 05:00 Intake & Output 05/01/18 05/02/18 05/02/18 18:59 06:59 18:59 Intake Total 1080 Balance 1080 Intake: Oral 1080 Other: Voiding Method Toilet Toilet # Voids 2 2 - Exam - Constitutional General appearance: average body habitus, cooperative, disheveled, mild distress - EENT Eyes: EOMI, PERRLA, normal appearance ENT: hearing grossly normal, normal oropharynx Ears: bilateral: normal - Neck Carotids: bilateral: upstroke normal Thyroid: bilateral: normal size - Respiratory Respiratory: bilateral: diminished, wheezing very fine and expiration no episodes of coughing post noted - Cardiovascular Rhythm: regular Heart sounds: normal: S1, S2 - Gastrointestinal General gastrointestinal: soft - Integumentary Integumentary: normal, normal turgor - Musculoskeletal Musculoskeletal: gait normal, generalized weakness, strength equal bilaterally - Psychiatric Psychiatric: A&O x's 3, appropriate affect, intact judgment & insight - Labs CBC & Chem 7: 05/02/18 07:17 05/02/18 07:17 Labs: Abnormal Lab Results - Last 24 Hours (Table) 05/01/18 05/01/18 05/01/18 Range/Units 11:05 17:16 20:09 WBC (3.8-10.6) k/uL Neutrophils # (1.3-7.7) k/uL Sodium (137-145) mmol/L Creatinine (0.66-1.25) mg/dL Glucose (74-99) mg/dL POC Glucose (mg/dL) 381 H 221 H 252 H (75-99) mg/dL 05/02/18 05/02/18 05/02/18 Range/Units 07:09 07:17 07:17 WBC 13.9 H (3.8-10.6) k/uL Neutrophils # 12.0 H (1.3-7.7) k/uL Sodium 136 L (137-145) mmol/L Creatinine 0.61 L (0.66-1.25) mg/dL Glucose 242 H (74-99) mg/dL POC Glucose (mg/dL) 240 H (75-99) mg/dL Microbiology - Last 24 Hours (Table) 04/29/18 19:05 Blood Culture - Preliminary Blood No Growth after 48 hours 04/30/18 15:17 Gram Stain - Preliminary Sputum Sputum Culture - Preliminary Assessment and Plan Assessment: Acute COPD exacerbation Acute purulent tracheal bronchitis Chest tightness and pain likely related to COPD exacerbation Mp artery disease history of multiple stent placement Obstructive sleep apnea Type 2 diabetes mellitus Hypertension hypertensive cardiovascular disease Prostate cancer Dyslipidemia Plan: Agree with broad-spectrum antibiotics, will continue Rocephin and follow up on sputum studies, preliminary continued to show gram-positive cocci final ID pending Continue bronchodilators IV steroids Monitor sugar with sliding scale and adjust accordingly continue oral hypoglycemic agent DVT and peptic ulcer disease prophylaxis Further recommendations pending plan of care as per clinical response of the patient Patient advised to bring CPAP machine from home and use accordingly Time with Patient: Greater than 30
[2018-05-02 11:00] LABS: Glucose,Whole Blood 235 mg/dL (75-99)
--- NOTE | 2018-05-02 15:02 | P.PN ---
Subjective Progress Note Date: 05/02/18 This is a 78-year-old male who presented to the emergency room complaining of worsening cough and dyspnea over the past week. Patient states he is having increased sputum production. Patient has a known past medical history of asthma , coronary artery disease, prostate cancer, COPD, CVA and TIA, diabetes mellitus , hyperlipidemia, hypertension, myocardial infarction with multiple stents. Osteoarthritis, seizure disorder and back surgery. Chest x-ray completed showing no active cardiopulmonary disease. Minimal pleural scarring at the left lung base without change. Normal heart. Patient started on IV steroid Solu-Medrol 60 mg every 6 hours. Patient also started on Zithromax for antibiotics. Dr. Stanley for pulmonary consulted. Upon examination patient complaining of chest pain. EKG, cardiac profile, d-dimer and cardiology consult ordered to patient's extensive cardiac history. Also ordered to place patient on telemetry. Patient's home Plavix dose has been reordered. She placed on sliding scale insulin due to steroid and elevated blood sugar. At that time patient does complain of chest discomfort along with cough. Patient states cough kept him up all night. Mucinex has been ordered. Patient denies nausea vomiting or diarrhea. Patient denies any urinary burning or frequency. On 05/01/2018 patient is alert and oriented 3 in no apparent distress shortness of breath has improved he is maintained on IV Solu-Medrol 60 mg every 6 hours and inhaled bronchodilators he is also maintained on IV antibiotic patient improved significantly since yesterday he is still having severe shortness of breath with any activity there is no chest pain no nausea or vomiting no abdominal pain and no urinary symptoms. On 05/02/2018 patient is alert and oriented 3 his shortness of breath is improving he is still maintained on IV Solu-Medrol 60 mg every 6 hours inhaled corticosteroids and IV antibiotics, he denies any chest pain his shortness of breath has improved there is occasional cough no nausea or vomiting no abdominal pain no diarrhea and no urinary symptoms Objective - Vital Signs Vital signs: Vital Signs Temp 97 F L 05/02/18 05:00 Pulse 85 05/02/18 11:16 Resp 17 05/02/18 05:00 BP 129/67 05/02/18 05:00 Pulse Ox 94 L 05/02/18 05:00 Intake & Output 09/15/18 09/16/18 09/16/18 18:59 06:59 18:59 Intake Total 1080 Balance 1080 Intake: Oral 1080 Other: Voiding Method Toilet Toilet Toilet # Voids 2 2 - Exam Head normocephalic Neck supple Lungs expiratory wheezing throughout. Productive cough Heart regular rate and rhythm S1-S2, no rub or gallop Abdomen is soft nontender nondistended positive bowel sounds no hepatosplenomegaly Extremities no edema Neuro alert and orientated to 3 - Labs CBC & Chem 7: 05/02/18 07:17 05/02/18 07:17 Labs: Abnormal Lab Results - Last 24 Hours (Table) 05/01/18 05/01/18 05/02/18 Range/Units 17:16 20:09 07:09 WBC (3.8-10.6) k/uL Neutrophils # (1.3-7.7) k/uL Sodium (137-145) mmol/L Creatinine (0.66-1.25) mg/dL Glucose (74-99) mg/dL POC Glucose (mg/dL) 221 H 252 H 240 H (75-99) mg/dL 05/02/18 05/02/18 05/02/18 Range/Units 07:17 07:17 10:55 WBC 13.9 H (3.8-10.6) k/uL Neutrophils # 12.0 H (1.3-7.7) k/uL Sodium 136 L (137-145) mmol/L Creatinine 0.61 L (0.66-1.25) mg/dL Glucose 242 H (74-99) mg/dL POC Glucose (mg/dL) 235 H (75-99) mg/dL Microbiology - Last 24 Hours (Table) 04/30/18 15:17 Gram Stain - Final Sputum Sputum Culture - Final 04/29/18 19:05 Blood Culture - Preliminary Blood No Growth after 48 hours Assessment and Plan Plan: 1. Dyspnea related to COPD exacerbation and acute bronchitis. Chest x-ray completed showing no active cardiopulmonary disease. Minimum pleural scarring at the left lung base without change. Normal heart. Patient started on IV Solu -Medrol 60 mg every 6 hours and albuterol breathing treatments. Dr. Lizeth dean pulmonary consulted. Patient started on azithromycin. Blood and sputum cultures have been ordered. Mucinex has been ordered. 2. Chest pain. Possibly related to coughing. EKG completed in emergency room showing sinus rhythm with first-degree AV block septal infarct, age undetermined. Repeat EKG has been ordered. Troponins and d-dimer level ordered. Cardiology consulted due to extensive cardiac history. Telemetry has been ordered for patient 3. History of myocardial infarction with 4 stents to RCA. Cardiology services have been consulted. Home Plavix resume 4. Diabetes mellitus type 2. Home glipizide ordered. Sliding scale added due to steroid use 5. History of hyperlipidemia 6. History of essential hypertension 7. History of seizure disorder 8. History of prostate cancer DVT prophylaxis Lovenox. GI prophylaxis Pepcid
[2018-05-02 17:20] LABS: Glucose,Whole Blood 186 mg/dL (75-99)
[2018-05-02 20:26] LABS: Glucose,Whole Blood 254 mg/dL (75-99)
[2018-05-02] MEDS: ATORVASTATIN 10 MG TAB PO SCH (21:47)
[2018-05-02] MEDS: diphenhydrAMINE 25 MG CAP PO SCH (21:48)
[2018-05-03 05:19] VITALS: BP 137/71; RESP 17; TEMP 98
[2018-05-03] MEDS: methylPREDNISolone SOD SUCCI 125 MG/2 ML VIAL IV SCH ×2 (05:58→12:37)
[2018-05-03 07:04] LABS: Glucose,Whole Blood 231 mg/dL (75-99)
[2018-05-03] MEDS: IPRATROPIUM-ALBUTEROL 3 ML NEB INHALATION SCH ×2 (07:06→11:35)
[2018-05-03] MEDS: CLOPIDOGREL 75 MG TAB PO SCH (07:45)
[2018-05-03] MEDS: FAMOTIDINE 20 MG TAB PO SCH (07:45)
[2018-05-03] MEDS: AZITHROMYCIN 500 MG TAB PO SCH (07:45)
[2018-05-03] MEDS: glipiZIDE 5 MG TAB PO SCH ×2 (07:45→12:37)
[2018-05-03] MEDS: ISOSORBIDE MONONITRATE ER 60 MG TAB.ER.24H PO SCH (07:46)
[2018-05-03] MEDS: ENOXAPARIN 40 MG/0.4 ML SYRINGE SQ SCH (07:46)
[2018-05-03] MEDS: INSULIN ASPART 100 UNIT/ML 1 ML 10 ML VIAL SQ SCH ×2 (07:46→12:38)
[2018-05-03] MEDS: METOPROLOL SUCCINATE (ER) 100 MG TAB.ER.24H PO SCH (07:46)
[2018-05-03] MEDS: MONTELUKAST 10 MG TAB PO SCH (07:46)
[2018-05-03 09:01] LABS: Basophils % (A) 0 %; Eosinophils % (A) 0 %; HCT 43.8 % (39.0-53.0); HGB 14.1 gm/dL (13.0-17.5); Lymphocytes # (A) 1.2 k/uL (1.0-4.8); Lymphocytes % (A) 11 %; MCH 28.5 pg (25.0-35.0); MCHC 32.3 g/dL (31.0-37.0); MCV 88.2 fL (80.0-100.0); Mean Platelet Volume 6.5; Monocytes # (A) 0.4 k/uL (0-1.0); Monocytes % (A) 4 %; Neutrophils # (A) 8.9 k/uL (1.3-7.7); Neutrophils % (A) 84 %; Platelet Count 274 k/uL (150-450); RBC 4.97 m/uL (4.30-5.90); WBC 10.5 k/uL (3.8-10.6)
[2018-05-03 09:40] LABS: ALT 26 U/L (21-72); AST 19 U/L (17-59); Albumin 3.5 g/dL (3.5-5.0); Alkaline Phosphatase 55 U/L (38-126); Anion Gap 12 mmol/L; Blood Urea Nitrogen 17 mg/dL (9-20); Calcium 8.7 mg/dL (8.4-10.2); Carbon Dioxide 25 mmol/L (22-30); Chloride 99 mmol/L (98-107); Glucose 262 mg/dL (74-99); Potassium 4.2 mmol/L (3.5-5.1); Sodium 136 mmol/L (137-145); Total Bilirubin 0.6 mg/dL (0.2-1.3); Total Protein 6.2 g/dL (6.3-8.2)
[2018-05-03 11:31] LABS: Glucose,Whole Blood 182 mg/dL (75-99)
--- NOTE | 2018-05-03 11:36 | P.DS ---
Providers Date of admission: 04/29/18 20:41 Expected date of discharge: 05/03/18 Attending physician: Florian Rdz Consults: 04/29/18 20:36 Consult Physician Routine Consulting Provider: Santana Stanley Consult Reason/Comments: copd Do you want consulting provider notified?: Yes 04/30/18 10:26 Consult Physician Routine Consulting Provider: Flako Raya Consult Reason/Comments: chest pain Do you want consulting provider notified?: Already Contacted Primary care physician: [facility] Course: Discharge diagnosis 1. Dyspnea related to COPD exacerbation and acute bronchitis. Chest x-ray completed showing no active cardiopulmonary disease. Minimum pleural scarring at the left lung base without change. Normal heart. Patient started on IV Solu -Medrol 60 mg every 6 hours and albuterol breathing treatments. Dr. Stanley per pulmonary consulted. Patient started on azithromycin. Blood and sputum cultures have been ordered. Mucinex has been ordered. Patient has been cleared from pulmonary standpoint. Patient will be discharged home on Ceftin antibiotic and steroid Dosepak. Patient to follow-up outpatient with Dr. Stanley in 1 week 2. Chest pain. Possibly related to coughing. EKG completed in emergency room showing sinus rhythm with first-degree AV block septal infarct, age undetermined. Telemetry has been ordered for patient. D-dimer 0.33. Troponins negative. 2-D echo completed EF of 55-60%. Cardiology services have signed off 3. History of myocardial infarction with 4 stents to RCA. Cardiology services have been consulted. Home Plavix resume 4. Diabetes mellitus type 2. Home glipizide ordered. Sliding scale added due to steroid use 5. History of hyperlipidemia 6. History of essential hypertension 7. History of seizure disorder 8. History of prostate cancer hospital course This is a 78-year-old male who presented to the emergency room complaining of worsening cough and dyspnea over the past week. Patient states he is having increased sputum production. Patient has a known past medical history of asthma , coronary artery disease, prostate cancer, COPD, CVA and TIA, diabetes mellitus , hyperlipidemia, hypertension, myocardial infarction with multiple stents. Osteoarthritis, seizure disorder and back surgery. Chest x-ray completed showing no active cardiopulmonary disease. Minimal pleural scarring at the left lung base without change. Normal heart. Patient started on IV steroid Solu-Medrol 60 mg every 6 hours. Patient also started on Zithromax for antibiotics. Dr. Stanley for pulmonary consulted. Upon examination patient complaining of chest pain. EKG, cardiac profile, d-dimer and cardiology consult ordered to patient's extensive cardiac history. Also ordered to place patient on telemetry. Patient's home Plavix dose has been reordered. She placed on sliding scale insulin due to steroid and elevated blood sugar. At that time patient does complain of chest discomfort along with cough. Patient states cough kept him up all night. Mucinex has been ordered. Patient denies nausea vomiting or diarrhea. Patient denies any urinary burning or frequency. On 05/01/2018 patient is alert and oriented 3 in no apparent distress shortness of breath has improved he is maintained on IV Solu-Medrol 60 mg every 6 hours and inhaled bronchodilators he is also maintained on IV antibiotic patient improved significantly since yesterday he is still having severe shortness of breath with any activity there is no chest pain no nausea or vomiting no abdominal pain and no urinary symptoms. On 05/02/2018 patient is alert and oriented 3 his shortness of breath is improving he is still maintained on IV Solu-Medrol 60 mg every 6 hours inhaled corticosteroids and IV antibiotics, he denies any chest pain his shortness of breath has improved there is occasional cough no nausea or vomiting no abdominal pain no diarrhea and no urinary symptoms On 05/03/2018 patient is alert and oriented 3. Patient is eager to go home. Patient has been cleared for discharge from pulmonary standpoint. Patient will be discharged home on Ceftin by mouth antibiotic and steroid dose pack per pulmonary recommendation. Patient to follow-up outpatient with primary care provider and pulmonary services at this time patient denies chest pain or shortness breath. Denies nausea vomiting or diarrhea. Denies any urinary burning or frequency I performed an examination of the patient and discussed their management with the Nurse Practitioner. I have reviewed the Nurse Practitioner's notes and agree with the documented findings and plan of care Patient Condition at Discharge: Stable Plan - Discharge Summary Discharge Rx Participant: No New Discharge Prescriptions: New Cefuroxime [Ceftin] 250 mg PO BID 7 Days #14 tablet predniSONE 10 mg PO DIRECTED #30 tab Continue Ipratropium/Albuterol Sulfate [Duoneb 0.5 mg-3 mg/3 ml Soln] 3 ml INHALATION RT-QID PRN PRN Reason: Shortness Of Breath Metoprolol Succinate [Toprol XL] 100 mg PO DAILY Lisinopril [Zestril] 2.5 mg PO W/SUPPER Montelukast Sodium [Singulair] 10 mg PO DAILY Nitroglycerin Sl Tabs [Nitrostat] 0.4 mg SUBLINGUAL Q5M PRN PRN Reason: Pain Albuterol Sulfate [Proair Hfa] 2 puff INHALATION RT-Q6H PRN PRN Reason: Shortness Of Breath Simvastatin [Zocor] 20 mg PO HS Clopidogrel [Plavix] 75 mg PO DAILY Omeprazole [PriLOSEC] 20 mg PO DAILY Multivitamins, Thera [Multivitamin (formulary)] 1 tab PO DAILY Fluticasone/Salmeterol [Advair 500-50 Diskus] 1 puff INHALATION RT-BID Fluticasone Nasal [place] [Flonase Nasal [place]] 1 spray EA NOSTRIL BID diphenhydrAMINE HCL [Benadryl] 25 mg PO HS glipiZIDE [Glucotrol] 5 mg PO AC-TID tab Isosorbide Mononitrate ER [Imdur] 60 mg PO DAILY tab.er.24h Discontinued Potassium Chloride [Klor-Con 20] 20 meq PO DAILY Discharge Medication List Albuterol Sulfate [Proair Hfa] 2 puff INHALATION RT-Q6H PRN 01/11/14 [History] Clopidogrel [Plavix] 75 mg PO DAILY 01/11/14 [History] Ipratropium/Albuterol Sulfate [Duoneb 0.5 mg-3 mg/3 ml Soln] 3 ml INHALATION RT- QID PRN 01/11/14 [History] Lisinopril [Zestril] 2.5 mg PO W/SUPPER 01/11/14 [History] Metoprolol Succinate [Toprol XL] 100 mg PO DAILY 01/11/14 [History] Montelukast Sodium [Singulair] 10 mg PO DAILY 01/11/14 [History] Multivitamins, Thera [Multivitamin (formulary)] 1 tab PO DAILY 01/11/14 [History ] Nitroglycerin Sl Tabs [Nitrostat] 0.4 mg SUBLINGUAL Q5M PRN 01/11/14 [History] Omeprazole [PriLOSEC] 20 mg PO DAILY 01/11/14 [History] Simvastatin [Zocor] 20 mg PO HS 01/11/14 [History] Fluticasone/Salmeterol [Advair 500-50 Diskus] 1 puff INHALATION RT-BID 03/28/15 [History] Fluticasone Nasal [place] [Flonase Nasal [place]] 1 spray EA NOSTRIL BID 02/25/16 [ History] diphenhydrAMINE HCL [Benadryl] 25 mg PO HS 07/22/16 [History] Isosorbide Mononitrate ER [Imdur] 60 mg PO DAILY tab.er.24h 08/05/17 [Rx] glipiZIDE [Glucotrol] 5 mg PO AC-TID tab 08/05/17 [Rx] Cefuroxime [Ceftin] 250 mg PO BID 7 Days #14 tablet 05/03/18 [Rx] predniSONE 10 mg PO DIRECTED #30 tab 05/03/18 [Rx] Follow up Appointment(s)/Referral(s): Florian Rdz MD [Primary Care Provider] - 1-2 days Drake Arriaga MD [STAFF PHYSICIAN] - 2 Weeks Santana Stanley MD [STAFF PHYSICIAN] - 1 Week Activity/Diet/Wound Care/Special Instructions: diet heart healthy activity as tolerated Discharge Disposition: HOME SELF-CARE
[2018-05-03 12:18] VITALS: PULSE 70
--- NOTE | 2018-05-03 19:18 | PN ---
PROGRESS NOTE Sid Diaz is an 78-year-old male seen and examined during rounds. He is breathing more comfortably. His cough congestion, shortness of breath has improved. He is tolerating antibiotics and breathing treatments fairly well. Care plan discussed with the primary service. Patient likely will be discharged later on today. His last set of vitals include blood pressure is 137/71, respiratory rate is 17, heart rate 80, temperature is 98, saturation of 92-94 percent. HEENT exam is unremarkable. Neck is supple without lymphadenopathy, jugular venous distention, or carotid bruit. Lungs bilateral fine rhonchi on forced expiration is present. Heart regular rate and rhythm, S1, S2 audible. Abdomen is soft. No rebound, rigidity. Extremities +1 peripheral pulses. Neurological examination otherwise awake and alert. His respiratory reinaldo is normal on sputum study final report. Blood cultures have been negative. The patient has been on Rocephin and steroids. I have discussed the patient can be treated with Ceftin as well as a Medrol Dosepak and can be discharged. IMPRESSION: 1. Acute chronic obstructive pulmonary disease exacerbation. 2. Tracheobronchitis. 3. Acute on chronic asthma with severe persistent asthma, on baseline. 4. Coronary artery disease. PLAN/RECOMMENDATIONS: As noted above. Increase activity as tolerated. Agree with discharge planning with follow up in outpatient setting. MMODL / IJN: [id number] /
== END 2018-05-03 13:45 | disposition home or self-care (01) | DRG 192 ==
LOC: EC 18:38 → 5MS5E 20:41
PROVIDERS: ADMIT Internal Medicine; ATTEND Internal Medicine
DX: J44.0 Chronic obstructive pulmonary disease with (acute) lower respiratory infection (principal); J44.1 Chronic obstructive pulmonary disease with (acute) exacerbation; E11.65 Type 2 diabetes mellitus with hyperglycemia; E78.5 Hyperlipidemia, unspecified; E87.5 Hyperkalemia; G40.909 Epilepsy, unspecified, not intractable, without status epilepticus; G47.33 Obstructive sleep apnea (adult) (pediatric); H91.92 Unspecified hearing loss, left ear; I11.0 Hypertensive heart disease with heart failure; I25.10 Atherosclerotic heart disease of native coronary artery without angina pectoris; I25.2 Old myocardial infarction; I44.0 Atrioventricular block, first degree; I50.9 Heart failure, unspecified; J20.9 Acute bronchitis, unspecified; J45.50 Severe persistent asthma, uncomplicated; R09.02 Hypoxemia; Z85.46 Personal history of malignant neoplasm of prostate; M19.90 Unspecified osteoarthritis, unspecified site; Z79.02 Long term (current) use of antithrombotics/antiplatelets; Z79.84 Long term (current) use of oral hypoglycemic drugs; Z79.899 Other long term (current) drug therapy; Z80.0 Family history of malignant neoplasm of digestive organs; Z80.8 Family history of malignant neoplasm of other organs or systems; Z82.0 Family history of epilepsy and other diseases of the nervous system; Z85.828 Personal history of other malignant neoplasm of skin; Z86.14 Personal history of Methicillin resistant Staphylococcus aureus infection; Z86.73 Personal history of transient ischemic attack (TIA), and cerebral infarction without residual deficits; Z87.891 Personal history of nicotine dependence; Z95.5 Presence of coronary angioplasty implant and graft; Z88.6 Allergy status to analgesic agent; Z88.5 Allergy status to narcotic agent; Z88.8 Allergy status to other drugs, medicaments and biological substances
CPT/HCPCS: 36415; 71046; 80053; 82550; 82553; 83036; 83605; 83735; 83880; 84484; 85025; 85379; 85610; 85730; 87040; 87070; 87205; 93005; 93306; 94640; 99285

== ENCOUNTER 2018-06-27 11:50 | Inpatient (IN) | payer MEDICARE ==
[2018-06-27] MEDS ORDERED: SODIUM CHLORIDE 0.9% 500 ML 500 ML IV STA (11:59)
[2018-06-27] MEDS ORDERED: LEVOFLOXACIN 750MG-D5W PMX 750 MG in DEXTROSE/WATER 1 150ML.BAG IVPB STA (12:08)
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
[2018-06-27 12:34] LABS: Basophils # (A) 0.1 k/uL (0-0.2); Basophils % (A) 1 %; Eosinophils # (A) 0.3 k/uL (0-0.7); Eosinophils % (A) 4 %; HCT 41.2 % (39.0-53.0); HGB 14.1 gm/dL (13.0-17.5); Lymphocytes # (A) 2.2 k/uL (1.0-4.8); Lymphocytes % (A) 24 %; MCH 29.2 pg (25.0-35.0); MCHC 34.1 g/dL (31.0-37.0); MCV 85.6 fL (80.0-100.0); Mean Platelet Volume 6.7; Monocytes # (A) 0.7 k/uL (0-1.0); Monocytes % (A) 8 %; Neutrophils # (A) 5.7 k/uL (1.3-7.7); Neutrophils % (A) 62 %; Platelet Count 277 k/uL (150-450); RBC 4.82 m/uL (4.30-5.90); RDW 13.2 % (11.5-15.5); WBC 9.1 k/uL (3.8-10.6)
[2018-06-27 12:45] LABS: ALT 33 U/L (21-72); AST 27 U/L (17-59); Albumin 3.4 g/dL (3.5-5.0); Alkaline Phosphatase 56 U/L (38-126); Anion Gap 10 mmol/L; Blood Urea Nitrogen 11 mg/dL (9-20); Calcium 8.9 mg/dL (8.4-10.2); Carbon Dioxide 24 mmol/L (22-30); Chloride 100 mmol/L (98-107); Glucose 252 mg/dL (74-99); Magnesium 2.1 mg/dL (1.6-2.3); Potassium 3.9 mmol/L (3.5-5.1); Sodium 134 mmol/L (137-145); Total Bilirubin 0.6 mg/dL (0.2-1.3)
[2018-06-27 12:49] LABS: Partial Thromboplastin Time 22.8 sec (22.0-30.0); Prothrombin Time 9.9 sec (9.0-12.0)
[2018-06-27] MEDS ORDERED: NALOXONE 0.4 MG/ML 1 ML VIAL IV PRN (14:20)
[2018-06-27] MEDS: SODIUM CHLORIDE 0.9% 1,000 ML IV SCH (15:10)
[2018-06-27 16:02] VITALS: BMI 28.3
[2018-06-27] MEDS ORDERED: ALBUTEROL NEBULIZED 2.5 MG/3 ML INHALATION PRN (16:20)
[2018-06-27] MEDS: IPRATROPIUM-ALBUTEROL 3 ML NEB INHALATION SCH (16:54)
[2018-06-27 17:42] LABS: Glucose,Whole Blood 145 mg/dL (75-99)
[2018-06-27 20:15] LABS: Glucose,Whole Blood 165 mg/dL (75-99)
[2018-06-27] MEDS: SYMBICORT 160-4.5 MCG INHALER INHALATION SCH (20:50)
[2018-06-27] MEDS ORDERED: ATORVASTATIN 10 MG TAB PO SCH (21:00)
[2018-06-27] MEDS: levETIRAcetam 500 MG TAB PO SCH (21:35)
[2018-06-27] MEDS: MONTELUKAST 10 MG TAB PO SCH (21:35)
[2018-06-27] MEDS: LISINOPRIL 2.5 MG TAB PO SCH (21:35)
[2018-06-27] MEDS: glipiZIDE 5 MG TAB PO SCH (21:35)
[2018-06-27] MEDS: INSULIN ASPART 100 UNIT/ML 1 ML 10 ML VIAL SQ SCH (21:35)
[2018-06-27] MEDS: diphenhydrAMINE 25 MG CAP PO SCH (21:35)
[2018-06-27] MEDS: FLUTICASONE 50MCG/SPRAY NASAL 16GM EA NOSTRIL SCH (23:51)
[2018-06-28] MEDS: SODIUM CHLORIDE 0.9% 1,000 ML IV SCH ×2 (04:00→18:02)
[2018-06-28 07:05] LABS: Glucose,Whole Blood 141 mg/dL (75-99)
[2018-06-28] MEDS: SYMBICORT 160-4.5 MCG INHALER INHALATION SCH ×2 (07:35→20:02)
[2018-06-28] MEDS: IPRATROPIUM-ALBUTEROL 3 ML NEB INHALATION SCH ×4 (07:35→20:03)
[2018-06-28] MEDS: POTASSIUM CHLORIDE ER 20 MEQ TAB.ER PO SCH (07:57)
[2018-06-28] MEDS: levETIRAcetam 500 MG TAB PO SCH ×2 (07:58→21:48)
[2018-06-28] MEDS: CLOPIDOGREL 75 MG TAB PO SCH (07:58)
[2018-06-28] MEDS: INSULIN ASPART 100 UNIT/ML 1 ML 10 ML VIAL SQ SCH ×4 (07:58→21:48)
[2018-06-28] MEDS: ISOSORBIDE MONONITRATE ER 60 MG TAB.ER.24H PO SCH (07:58)
[2018-06-28] MEDS: ASCORBIC ACID 500 MG TAB PO SCH (07:58)
[2018-06-28] MEDS: FLUTICASONE 50MCG/SPRAY NASAL 16GM EA NOSTRIL SCH ×2 (07:58→21:46)
[2018-06-28] MEDS: glipiZIDE 5 MG TAB PO SCH ×3 (07:58→18:00)
[2018-06-28] MEDS ORDERED: ASPIRIN 81 MG PO SCH (09:00)
[2018-06-28] MEDS ORDERED: METOPROLOL SUCCINATE (ER) 100 MG TAB.ER.24H PO SCH (09:00)
[2018-06-28 09:24] LABS: Basophils # (A) 0.1 k/uL (0-0.2); Basophils % (A) 1 %; Eosinophils # (A) 0.4 k/uL (0-0.7); Eosinophils % (A) 6 %; HGB 13.1 gm/dL (13.0-17.5); Lymphocytes # (A) 1.8 k/uL (1.0-4.8); Lymphocytes % (A) 24 %; MCH 28.4 pg (25.0-35.0); MCHC 32.8 g/dL (31.0-37.0); MCV 86.7 fL (80.0-100.0); Mean Platelet Volume 6.8; Monocytes # (A) 0.6 k/uL (0-1.0); Monocytes % (A) 8 %; Neutrophils # (A) 4.4 k/uL (1.3-7.7); Neutrophils % (A) 59 %; Platelet Count 285 k/uL (150-450); RBC 4.62 m/uL (4.30-5.90); RDW 13.2 % (11.5-15.5); WBC 7.4 k/uL (3.8-10.6)
[2018-06-28 09:29] LABS: ALT 57 U/L (21-72); AST 79 U/L (17-59); Albumin 2.8 g/dL (3.5-5.0); Alkaline Phosphatase 133 U/L (38-126); Anion Gap 8 mmol/L; Blood Urea Nitrogen 8 mg/dL (9-20); Calcium 8.4 mg/dL (8.4-10.2); Carbon Dioxide 25 mmol/L (22-30); Chloride 103 mmol/L (98-107); Glucose 135 mg/dL (74-99); Potassium 3.7 mmol/L (3.5-5.1); Sodium 136 mmol/L (137-145); Total Bilirubin 1.6 mg/dL (0.2-1.3); Total Protein 5.4 g/dL (6.3-8.2)
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
[2018-06-28 10:56] LABS: Hemoglobin A1C 8.9 % (4.0-6.0)
[2018-06-28 11:46] LABS: Glucose,Whole Blood 161 mg/dL (75-99)
[2018-06-28] MEDS ORDERED: LEVOFLOXACIN 750MG-D5W PMX 750 MG in DEXTROSE/WATER 1 150ML.BAG IVPB SCH (12:00)
[2018-06-28] MEDS ORDERED: METOPROLOL SUCCINATE (ER) 100 MG TAB.ER.24H PO STA (12:16)
[2018-06-28] MEDS: MULTIVITAMINS, THERA 1 EACH TAB PO SCH (12:34)
[2018-06-28] MEDS: IOPAMIDOL-300 CONTRAST 30 ML VIAL (ORAL USE) PO PRN ×2 (14:03→15:06)
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
[2018-06-28 17:07] LABS: Glucose,Whole Blood 143 mg/dL (75-99)
--- NOTE | 2018-06-28 17:32 | CT ---
EXAMINATION TYPE: CT abdomen pelvis w con DATE OF EXAM: 06/28/2018 COMPARISON: 03/08/2015 INDICATION: Diarrhea and elevated liver enzymes. DLP: 1414.4 mGycm, Automated exposure control for dose reduction was used. CONTRAST: 100ml mL of Isovue M300. Study performed with Oral Contrast TECHNIQUE: Axial images were obtained from above the diaphragm to the pubic rami in the axial plane a t 5 mm thick sections. Reconstructed images are reviewed on the computer in the coronal plane. FINDINGS: Limited CT sections are obtained the lung bases. Minimal bilateral pleural effusions are present orion e mild atelectasis may be at the right lung base. There are couple of punctate radiopaque foreign bod ies along the pleural margin at the left base and posteriorly at the left base.. CT ABDOMEN: Liver: Some mild fatty infiltration liver is present. Spleen: Normal Pancreas: Normal Adrenal glands: The adrenal glands are normal. Gallbladder: Normal Kidneys: Perinephric stranding is present bilaterally. There hypodensities adjacent to the kidneys li thania represent exophytic cyst. One of these is hyperdensity along the lateral margin of the left kidn ey measuring 1.9 cm and 31 Hounsfield units. Additional more simple appearing cysts include a 2.1 cm cyst inferior lateral left mid kidney and a 1.4 cm cyst at the inferior pole medial left kidney measu ring 10 Hounsfield units. There is a cyst at the superior cortex right upper pole kidney measuring 1. 3 cm. No hydronephrosis is present. Delayed images were obtained through the kidneys, renal cortic al cysts are better visualized on delayed images. Aorta: Vascular calcification is within the aorta. Inferior vena cava: Normal. CT PELVIS: Loops of bowel within the abdomen and pelvis are normal. There are loops of bowel lacking oral co ntrast or incomplete distention limiting their evaluation. Appendix: Normal as visualized. Urinary bladder: Normal. Genitourinary structures: Prostate is not identified. Correlate with surgical history. Osseous structures: No suspicious lytic or sclerotic lesions. IMPRESSIONS: 1. There is an intermediate density rounded area off of the lateral left mid kidney may be a complex cyst. Additional workup with ultrasound is recommended. This was present previously and is enlarged over the interval. Mass is not excluded. 2. Additional simple appearing bilateral renal cysts. 3. Perinephric stranding bilaterally. Correlate for pyelonephritis.
[2018-06-28] MEDS: LISINOPRIL 2.5 MG TAB PO SCH (18:00)
--- NOTE | 2018-06-28 19:44 | CONS ---
CONSULTATION DATE OF SERVICE: 06/28/2018. REASON FOR CONSULTATION: Diarrhea. HISTORY OF PRESENT ILLNESS: The patient is an 78-year-old male who recently has been exposed to other local resident when he ate at the [employer] lunch on [employer] [address] about a week ago on Thursday. The patient did have multiple sabianism members who felt sick with shigella . The patient said he did okay for the next day or 2, however, subsequently started having feeling weak and tired. Did not have any energy and then started having diarrhea. He had about 4-5 loose stools per day. Started having some mucus and blood in it and also had some lower abdominal crampy pain. Pain has been more of a dull aching 3 to 4/10, and no radiation. The patient has been nauseated but no vomiting. With these symptoms , the patient did presented to the [facility] ER. The patient has been evaluated by the ER physician. The patient has been afebrile since he has been admitted in the hospital. His white count has been normal. Stool for C difficile was negative. Stool culture currently pending. He was started on Levaquin. I was asked to see the patient for further recommendation regarding antibiotic therapy. REVIEW OF SYSTEMS: Positive points have been mentioned in HPI. Rest of systems have been negative. PAST MEDICAL HISTORY: Asthma, coronary disease, COPD, CVA, TIA, diabetes mellitus, hypertension, hyperlipidemia, MS, osteoarthritis, seizure disorder. PAST SURGICAL HISTORY: Surgery for prostate cancer, appendectomy, back surgery, PTCA with stent, and hernia repair. SOCIAL HISTORY: Remote history of smoking. Quit back in 2007. Denies any drinking or drug use. FAMILY HISTORY: Father with history of dementia. Mother history of colon cancer ALLERGIES: TO ACETAMINOPHEN, HYDROCODONE, VITAMIN D. MEDICATIONS: Medications currently include the patient is on Ventolin, DuoNeb, Eliquis, Symbicort, Plavix, Benadryl, Flonase, Glucotrol, NovoLog, Imdur, Keppra, Levaquin, Zestril, Toprol-XL, Singulair, Theragran, Narcan. EXAMINATION: Blood pressure 125/57 with a pulse of 100. Temperature 97.6. He is 93% on room air. General description is an elderly male lying in bed in no distress. No tachypnea or accessory muscle of respiration use. HEENT: Shows no pallor or scleral icterus. Oral mucosa membranes dry. No pharyngeal erythema or thrush. Neck: Trachea central. No thyromegaly. LUNGS: Unlabored breathing. Clear to auscultation anteriorly. No wheeze or crackles. Heart S1, S2. Regular rate and rhythm. ABDOMEN: Soft, no distention. No guarding or rigidity. No organomegaly. EXTREMITIES: No edema of feet. Skin examination: No rash or mass palpable. Neurologic: The patient is awake, alert, oriented times three. Mood and affect normal. LABS: Hemoglobin 13.1, white count 7.4, BUN of 8, creatinine 0.6. Electrolytes have been normal. Liver enzymes mildly elevated. Stool cultures currently pending. Stool for C difficile has been negative. DIAGNOSTIC IMPRESSION AND PLAN: Patient admitted to the hospital with acute infectious diarrhea. The patient has been exposed to other local residents and shared the meal. The local residents from the same sabianism has been diagnosed with shigella , more likely acute shigella diarrhea, gastroenteritis. PLAN: 1. Strict contact isolation. 2. Will switch over the Levaquin to oral Cipro 500 mg twice a day. 3. IV fluids. 4. We will follow up on clinical condition to further adjust medication if needed. Thank you for this consultation. We will follow the patient along with you. MMODL / IJN: [id number] / [place]
[2018-06-28 19:49] LABS: Glucose,Whole Blood 107 mg/dL (75-99)
[2018-06-28] MEDS: CIPROFLOXACIN HCL 500 MG TAB PO SCH (21:46)
[2018-06-28] MEDS: APIXABAN 2.5 MG TABLET PO SCH (21:46)
[2018-06-28] MEDS: diphenhydrAMINE 25 MG CAP PO SCH (21:46)
[2018-06-28] MEDS: MONTELUKAST 10 MG TAB PO SCH (21:48)
[2018-06-29] MEDS: SODIUM CHLORIDE 0.9% 1,000 ML IV SCH (05:54)
[2018-06-29 07:05] LABS: Glucose,Whole Blood 119 mg/dL (75-99)
[2018-06-29] MEDS: POTASSIUM CHLORIDE ER 20 MEQ TAB.ER PO SCH (08:17)
[2018-06-29] MEDS: METOPROLOL SUCCINATE (ER) 100 MG TAB.ER.24H PO SCH (08:17)
[2018-06-29] MEDS: levETIRAcetam 500 MG TAB PO SCH ×2 (08:18→21:46)
[2018-06-29] MEDS: ISOSORBIDE MONONITRATE ER 60 MG TAB.ER.24H PO SCH (08:18)
[2018-06-29] MEDS: CIPROFLOXACIN HCL 500 MG TAB PO SCH ×2 (08:18→21:46)
[2018-06-29] MEDS: FLUTICASONE 50MCG/SPRAY NASAL 16GM EA NOSTRIL SCH ×2 (08:18→21:46)
[2018-06-29] MEDS: INSULIN ASPART 100 UNIT/ML 1 ML 10 ML VIAL SQ SCH ×4 (08:19→21:46)
[2018-06-29] MEDS: ASCORBIC ACID 500 MG TAB PO SCH (08:19)
[2018-06-29] MEDS: IPRATROPIUM-ALBUTEROL 3 ML NEB INHALATION SCH ×4 (08:19→21:17)
[2018-06-29] MEDS: glipiZIDE 5 MG TAB PO SCH ×3 (08:19→17:55)
[2018-06-29] MEDS: SYMBICORT 160-4.5 MCG INHALER INHALATION SCH ×2 (08:19→21:17)
[2018-06-29] MEDS: APIXABAN 2.5 MG TABLET PO SCH ×2 (08:21→21:46)
[2018-06-29] MEDS: CLOPIDOGREL 75 MG TAB PO SCH (08:22)
[2018-06-29] MEDS ORDERED: ENOXAPARIN 40 MG/0.4 ML SYRINGE SQ SCH (09:00)
[2018-06-29 09:13] LABS: Basophils # (A) 0.1 k/uL (0-0.2); Basophils % (A) 1 %; Eosinophils # (A) 0.4 k/uL (0-0.7); Eosinophils % (A) 5 %; HGB 13.8 gm/dL (13.0-17.5); Lymphocytes # (A) 1.9 k/uL (1.0-4.8); Lymphocytes % (A) 26 %; MCH 28.7 pg (25.0-35.0); MCHC 32.8 g/dL (31.0-37.0); MCV 87.6 fL (80.0-100.0); Mean Platelet Volume 6.6; Monocytes # (A) 0.4 k/uL (0-1.0); Monocytes % (A) 6 %; Neutrophils # (A) 4.5 k/uL (1.3-7.7); Neutrophils % (A) 60 %; Platelet Count 335 k/uL (150-450); RDW 13.4 % (11.5-15.5); WBC 7.4 k/uL (3.8-10.6)
[2018-06-29 09:39] LABS: ALT 133 U/L (21-72); AST 131 U/L (17-59); Albumin 3.2 g/dL (3.5-5.0); Alkaline Phosphatase 199 U/L (38-126); Anion Gap 8 mmol/L; Blood Urea Nitrogen 7 mg/dL (9-20); Calcium 8.7 mg/dL (8.4-10.2); Carbon Dioxide 25 mmol/L (22-30); Chloride 103 mmol/L (98-107); Glucose 121 mg/dL (74-99); Potassium 4.1 mmol/L (3.5-5.1); Sodium 136 mmol/L (137-145); Total Bilirubin 0.9 mg/dL (0.2-1.3); Total Protein 5.8 g/dL (6.3-8.2)
--- NOTE | 2018-06-29 09:51 | P.PN ---
Subjective Progress Note Date: 06/29/18 Principal diagnosis: Paroxysmal atrial fibrillation This is a pleasant 78-year-old gentleman who was admitted to the hospital with acute diarrhea. We get involved in his care because he went into an atrial fibrillation with a rapid ventricular response. He is known to have coronary artery disease and currently he is on dual antiplatelet therapy. Beside that he does have hypertension and dyslipidemia and diabetes. I'll follow-up with the patient today, he continues to be in atrial fibrillation with heart rate in the 100. The diarrhea has improved. I'm going to add Cardizem to the current medical regimen with metoprolol. He underwent an echocardiogram recently and that showed normal LV function. Objective - Vital Signs Vital signs: Vital Signs Temp 97.8 F 06/29/18 05:00 Pulse 100 06/29/18 08:30 Resp 16 06/29/18 05:00 BP 156/88 06/29/18 05:00 Pulse Ox 96 06/29/18 05:00 Intake & Output 06/28/18 06/29/18 06/29/18 18:59 06:59 18:59 Intake Total 625 Balance 625 Intake: Intake, IV Titration 225 Amount Sodium Chloride 0.9% 1, 225 000 ml @ 75 mls/hr IV . [id number] [facility] Rx#:[id number] Oral 400 Other: Voiding Method Toilet Toilet Toilet Urinal Urinal Urinal # Voids 3 2 - Constitutional General appearance: Present: no acute distress - Respiratory Respiratory: bilateral: diminished - Cardiovascular Rhythm: irregularly irregular Heart sounds: normal: S1, S2 - Labs CBC & Chem 7: 06/29/18 08:08 06/29/18 08:08 Labs: Abnormal Lab Results - Last 24 Hours (Table) 06/27/18 06/28/18 06/28/18 Range/Units 12:15 11:45 17:06 Sodium (137-145) mmol/L BUN (9-20) mg/dL Glucose (74-99) mg/dL POC Glucose (mg/dL) 161 H 143 H (75-99) mg/dL Hemoglobin A1c 8.9 H (4.0-6.0) % AST (17-59) U/L ALT (21-72) U/L Alkaline Phosphatase (38-126) U/L Total Protein (6.3-8.2) g/dL Albumin (3.5-5.0) g/dL 06/28/18 06/29/18 06/29/18 Range/Units 19:46 07:03 08:08 Sodium 136 L (137-145) mmol/L BUN 7 L (9-20) mg/dL Glucose 121 H (74-99) mg/dL POC Glucose (mg/dL) 107 H 119 H (75-99) mg/dL Hemoglobin A1c (4.0-6.0) % AST 131 H (17-59) U/L ALT 133 H (21-72) U/L Alkaline Phosphatase 199 H (38-126) U/L Total Protein 5.8 L (6.3-8.2) g/dL Albumin 3.2 L (3.5-5.0) g/dL Microbiology - Last 24 Hours (Table) 06/27/18 12:15 Blood Culture - Preliminary Blood No Growth after 24 hours Assessment and Plan Assessment: Assessment #1 new onset atrial fibrillation. #2 known CAD and prior angioplasty and stenting #3 hypertension #4 dyslipidemia Plan #1 add Cardizem to metoprolol #2 monitor the patient for additional 24 hours #3 follow-up with the patient.
--- NOTE | 2018-06-29 10:57 | P.PN ---
Subjective Progress Note Date: 06/29/18 This is a 78-year-old male patient presented to the emergency room with complaints of diarrhea. Patient states he was exposed to a known outbreak of Shigella at his [facility] [facility] with 30 people have confirmed cases of Shigella. Patient states that for about a week he's had abdominal cramping nausea and diarrhea. She states she's been having multiple watery stools every day. Patient also reports to having bloody diarrhea. During this time patient also experienced poor appetite. Patient denies any fever. She has known past medical history of asthma, coronary artery disease, prostate cancer, CVA, diabetes mellitus, hyperlipidemia, hypertension, myocardial infarction, osteoarthritis and seizure disorder. Patient does have a history of 4 stents to the RCA. Patient was started on Levaquin for IV antibiotics. Patient also started on normal saline at 75. EKG also completed on admission showing patient in A. fib with RVR. Patient does not have a history of atrial fibrillation. Cardiology services have been consulted and 2-D echo has been ordered. Consult placed for infectious disease. At this time patient states he is feeling much improved. Patient has been able to tolerate diet. Patient denies any nausea or vomiting at this time. Patient states bowel movements has significantly slowed down. Patient denies chest pain or shortness of breath. Patient denies nausea vomiting or diarrhea. Patient denies any urinary burning or frequency On 06/29/2018 patient is currently resting in bed. Patient states he is feeling much improved. Diarrhea has subsided. Patient is alert and oriented 3. Cardiology services have started patient on eliquis for anticoagulation due to atrial fibrillation. Patient currently on Cipro for antibiotic per infectious disease. At this time patient denies pain or shortness breath. Patient denies nausea vomiting or diarrhea. Patient denies any urinary burning or frequency Objective - Vital Signs Vital signs: Vital Signs Temp 97.8 F 06/29/18 05:00 Pulse 100 06/29/18 08:30 Resp 16 06/29/18 05:00 BP 156/88 06/29/18 05:00 Pulse Ox 96 06/29/18 05:00 Intake & Output 06/28/18 06/29/18 06/29/18 18:59 06:59 18:59 Intake Total 625 Balance 625 Intake: Intake, IV Titration 225 Amount Sodium Chloride 0.9% 1, 225 000 ml @ 75 mls/hr IV . [id number] [facility] Rx#:[id number] Oral 400 Other: Voiding Method Toilet Toilet Toilet Urinal Urinal Urinal # Voids 3 2 - Exam Head normocephalic Neck supple Lungs clear to auscultation bilaterally no wheezing or crackles Heart regular rate and rhythm S1-S2, no rub or gallop Abdomen is soft nontender nondistended positive bowel sounds no hepatosplenomegaly Extremities no edema Neuro alert and orientated to 3 - Labs CBC & Chem 7: 06/29/18 08:08 06/29/18 08:08 Labs: Abnormal Lab Results - Last 24 Hours (Table) 06/27/18 06/28/18 06/28/18 Range/Units 12:15 11:45 17:06 Sodium (137-145) mmol/L BUN (9-20) mg/dL Glucose (74-99) mg/dL POC Glucose (mg/dL) 161 H 143 H (75-99) mg/dL Hemoglobin A1c 8.9 H (4.0-6.0) % AST (17-59) U/L ALT (21-72) U/L Alkaline Phosphatase (38-126) U/L Total Protein (6.3-8.2) g/dL Albumin (3.5-5.0) g/dL 06/28/18 06/29/18 06/29/18 Range/Units 19:46 07:03 08:08 Sodium 136 L (137-145) mmol/L BUN 7 L (9-20) mg/dL Glucose 121 H (74-99) mg/dL POC Glucose (mg/dL) 107 H 119 H (75-99) mg/dL Hemoglobin A1c (4.0-6.0) % AST 131 H (17-59) U/L ALT 133 H (21-72) U/L Alkaline Phosphatase 199 H (38-126) U/L Total Protein 5.8 L (6.3-8.2) g/dL Albumin 3.2 L (3.5-5.0) g/dL Microbiology - Last 24 Hours (Table) 06/27/18 12:50 Stool Culture - Preliminary Stool 06/27/18 12:15 Blood Culture - Preliminary Blood No Growth after 24 hours Assessment and Plan Assessment: 1. Diarrhea. Patient has a known exposure to Shigella. Stool culture has been obtained. Infectious disease has been consulted. Patient started on Levaquin. C. diff negative. Stool occult blood positive. Per infectious disease disease patient has been started on Cipro by mouth antibiotic. Stool culture currently showing no Salmonella or Shigella. No E. coli. Per infectious disease patient can be discharged on Cipro for 3 days and follow-up in one week. 2. History of fibrillation with RVR. Cardiology services have been consulted. Per cardiology services patient has been started on eliquis for anticoagulation. Patient also started on Cardizem. Per cardiology services will like to continue to monitor patient for an additional 24 hours. 3. History of COPD. No exacerbation at this time 4. History of prostate cancer 5. History of myocardial infarction with 4 stents RCA. Patient maintained on Plavix 6. Diabetes mellitus type 2 7. History of hyperlipidemia 8. History of essential hypertension 9. History of seizure disorder. maintained on Keppra 10. Elevated liver enzymes elevated. AST 131, ALT [address] alkaline phosphatase 199[address] of abdomen and pelvis with contrast completed showing intermediate density rounded area of the lateral left mid kidney may be a complex cyst. Additional workup with ultrasound is recommended this was present previously and is enlarged over the interval. Mass in not Excluded. Additional simple appearing bilateral renal cysts. Perinephric Stranding bilaterally. correlate for Pyelonephritis. DVT prophylaxis eliquis. GI prophylaxis Protonix I performed an examination of the patient and discussed their management with the Nurse Practitioner. I have reviewed the Nurse Practitioner's notes and agree with the documented findings and plan of care
[2018-06-29 11:17] LABS: Glucose,Whole Blood 150 mg/dL (75-99)
[2018-06-29] MEDS: MULTIVITAMINS, THERA 1 EACH TAB PO SCH (12:45)
[2018-06-29] MEDS: DILTIAZEM CD 120 MG CAP.ER.24H PO SCH (12:46)
[2018-06-29] MEDS ORDERED: LEVOFLOXACIN 500MG-D5W PMX 500 MG in DEXTROSE/WATER 1 100ML.BAG IVPB SCH (13:00)
--- NOTE | 2018-06-29 15:14 | US ---
EXAMINATION TYPE: US kidneys/renal and bladder DATE OF EXAM: 06/29/2018 COMPARISON: CT CLINICAL HISTORY: Rule out pyelonephritis. EXAM MEASUREMENTS: Right Kidney: 10.7 x 4.4 x 5.3 cm Left Kidney: 10.0 x 4.4 x 4.8 cm *Incidental finding sludge in gallbladder. Right Kidney: No hydronephrosis, cyst noted measuring 2.0 x 1.3 x 1.3cm Left Kidney: No hydronephrosis, exophytic cysts noted measuring 1.7 x 1.3 x 2.0cm, 2.)1.7 x 1.3 x 1. 5cm Bladder: wnl IMPRESSION: 1. No hydronephrosis or nephrolithiasis. 2. Bilateral simple appearing renal cyst. 3. Incidental note made of gallbladder sludge.
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
[2018-06-29 16:54] LABS: Glucose,Whole Blood 114 mg/dL (75-99)
[2018-06-29 17:38] LABS: Appearance,Urine Clear (Clear); Bilirubin,Urine Negative (Negative); Blood,Urine Negative (Negative); Color,Urine Yellow; Glucose,Urine (UA) Negative (Negative); Ketones,Urine Negative (Negative); Leukocyte Esterase,Urine Negative (Negative); Nitrite,Urine Negative (Negative); Protein,Urine Negative (Negative); Specific Gravity,Urine 1.008 (1.001-1.035); Urobilinogen,Urine <2.0 mg/dL (<2.0)
[2018-06-29] MEDS: LISINOPRIL 2.5 MG TAB PO SCH (17:55)
--- NOTE | 2018-06-29 18:13 | PN ---
PROGRESS NOTE DATE OF SERVICE: 06/29/2018. REASON FOR FOLLOWUP: Acute gastroenteritis, likely shigella. INTERVAL HISTORY: The patient is currently afebrile. He is breathing comfortably. Denies having any chest pain. No shortness of breath or cough. His abdominal pain has resolved and denies having any diarrhea. Seemed to be insisting on going home. EXAMINATION: Blood pressure 141/73 with a pulse of 100, temperature 98.9. He is 94% on room air. General description is an elderly male lying in bed in no distress. Respiratory system: Unlabored breathing. Clear to auscultation anteriorly. Heart S1, S2. Regular rate and rhythm. ABDOMEN: Soft, no tenderness. No guarding or rigidity. Extremities: No edema of the feet. LABS: Blood cultures currently pending. Hemoglobin 13.1, white count 7.4, BUN of 10, creatinine 0.66. Liver enzymes are elevated. DIAGNOSTIC IMPRESSION AND PLAN: 1. Patient admitted to the hospital with acute nausea, vomiting, and diarrhea in a patient noted to have exposures at [facility] with other patient who was later on diagnosed shigella could be the same pathogen. Patient currently on Cipro that will be continued, has shown clinical improvement. 2. Elevated liver enzymes ultrasound abdomen did show gallbladder sludge. No other abnormality. Hepatitis panel has been ordered. Will follow. 3. Continue supportive care. MMODL / IJN: [id number] / [place]
[2018-06-29 19:59] LABS: Hepatitis A Antibody IgM Non-Reactive (Non-Reactive); Hepatitis B Core IgM Non-Reactive (Non-Reactive)
[2018-06-29 20:19] LABS: Glucose,Whole Blood 158 mg/dL (75-99)
[2018-06-29] MEDS: diphenhydrAMINE 25 MG CAP PO SCH (21:46)
[2018-06-29] MEDS: MONTELUKAST 10 MG TAB PO SCH (21:47)
[2018-06-30 05:19] VITALS: TEMP 97.6
[2018-06-30 07:08] LABS: Glucose,Whole Blood 119 mg/dL (75-99)
--- NOTE | 2018-06-30 07:09 | P.PN ---
Subjective Progress Note Date: 06/30/18 The patients urine is clear The findings on ct scan are non specific and dont have any clinical manifestations No further urological evaluation is required Objective - Vital Signs Vital signs: Vital Signs Temp 97.6 F 06/30/18 05:00 Pulse 71 06/30/18 05:00 Resp 18 06/30/18 05:00 BP 148/72 06/30/18 05:00 Pulse Ox 96 06/30/18 05:00 Intake & Output 06/29/18 06/30/18 06/30/18 18:59 06:59 18:59 Intake Total 100 Balance 100 Intake: Oral 100 Other: Voiding Method Toilet Toilet Urinal Urinal # Voids 3 1 - Labs CBC & Chem 7: 06/29/18 08:08 06/29/18 08:08 Labs: Abnormal Lab Results - Last 24 Hours (Table) 06/29/18 06/29/18 06/29/18 Range/Units 08:08 11:14 16:53 Sodium 136 L (137-145) mmol/L BUN 7 L (9-20) mg/dL Glucose 121 H (74-99) mg/dL POC Glucose (mg/dL) 150 H 114 H (75-99) mg/dL AST 131 H (17-59) U/L ALT 133 H (21-72) U/L Alkaline Phosphatase 199 H (38-126) U/L Total Protein 5.8 L (6.3-8.2) g/dL Albumin 3.2 L (3.5-5.0) g/dL 06/29/18 06/30/18 Range/Units 20:17 07:07 Sodium (137-145) mmol/L BUN (9-20) mg/dL Glucose (74-99) mg/dL POC Glucose (mg/dL) 158 H 119 H (75-99) mg/dL AST (17-59) U/L ALT (21-72) U/L Alkaline Phosphatase (38-126) U/L Total Protein (6.3-8.2) g/dL Albumin (3.5-5.0) g/dL Microbiology - Last 24 Hours (Table) 06/27/18 12:15 Blood Culture - Preliminary Blood No Growth after 48 hours 06/27/18 12:50 Stool Culture - Preliminary Stool
[2018-06-30] MEDS ORDERED: PANTOPRAZOLE 40 MG TABLET PO SCH (07:30)
[2018-06-30] MEDS: INSULIN ASPART 100 UNIT/ML 1 ML 10 ML VIAL SQ SCH ×2 (07:34→12:54)
[2018-06-30] MEDS: CIPROFLOXACIN HCL 500 MG TAB PO SCH (07:38)
[2018-06-30] MEDS: POTASSIUM CHLORIDE ER 20 MEQ TAB.ER PO SCH (07:38)
[2018-06-30] MEDS: ASCORBIC ACID 500 MG TAB PO SCH (07:39)
[2018-06-30] MEDS: CLOPIDOGREL 75 MG TAB PO SCH (07:39)
[2018-06-30] MEDS: DILTIAZEM CD 120 MG CAP.ER.24H PO SCH (07:39)
[2018-06-30] MEDS: ISOSORBIDE MONONITRATE ER 60 MG TAB.ER.24H PO SCH (07:39)
[2018-06-30] MEDS: glipiZIDE 5 MG TAB PO SCH ×2 (07:39→12:51)
[2018-06-30] MEDS: levETIRAcetam 500 MG TAB PO SCH (07:40)
[2018-06-30] MEDS: METOPROLOL SUCCINATE (ER) 100 MG TAB.ER.24H PO SCH (07:40)
[2018-06-30] MEDS: APIXABAN 2.5 MG TABLET PO SCH (07:40)
[2018-06-30] MEDS: FLUTICASONE 50MCG/SPRAY NASAL 16GM EA NOSTRIL SCH (07:41)
[2018-06-30 08:06] LABS: Basophils # (A) 0.1 k/uL (0-0.2); Basophils % (A) 1 %; Eosinophils # (A) 0.5 k/uL (0-0.7); Eosinophils % (A) 5 %; HCT 41.8 % (39.0-53.0); HGB 13.7 gm/dL (13.0-17.5); Lymphocytes # (A) 1.9 k/uL (1.0-4.8); Lymphocytes % (A) 21 %; MCH 28.6 pg (25.0-35.0); MCHC 32.7 g/dL (31.0-37.0); MCV 87.5 fL (80.0-100.0); Mean Platelet Volume 6.5; Monocytes # (A) 0.4 k/uL (0-1.0); Monocytes % (A) 4 %; Neutrophils % (A) 68 %; Platelet Count 360 k/uL (150-450); RBC 4.77 m/uL (4.30-5.90); RDW 13.4 % (11.5-15.5); WBC 8.9 k/uL (3.8-10.6)
[2018-06-30 08:14] LABS: ALT 107 U/L (21-72); AST 65 U/L (17-59); Albumin 3.2 g/dL (3.5-5.0); Alkaline Phosphatase 165 U/L (38-126); Anion Gap 8 mmol/L; Blood Urea Nitrogen 8 mg/dL (9-20); Calcium 8.8 mg/dL (8.4-10.2); Carbon Dioxide 24 mmol/L (22-30); Chloride 104 mmol/L (98-107); Glucose 120 mg/dL (74-99); Sodium 136 mmol/L (137-145); Total Bilirubin 0.8 mg/dL (0.2-1.3); Total Protein 5.8 g/dL (6.3-8.2)
[2018-06-30 08:16] LABS: Potassium 4.7 mmol/L (3.5-5.1)
[2018-06-30] MEDS: IPRATROPIUM-ALBUTEROL 3 ML NEB INHALATION SCH ×3 (08:27→16:04)
[2018-06-30] MEDS: SYMBICORT 160-4.5 MCG INHALER INHALATION SCH (08:27)
[2018-06-30 09:16] VITALS: RESP 16
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
[2018-06-30 11:32] LABS: Glucose,Whole Blood 146 mg/dL (75-99)
--- NOTE | 2018-06-30 11:48 | P.DS ---
Providers Date of admission: 06/27/18 14:20 Expected date of discharge: 06/30/18 Attending physician: Florian Rdz Consults: 06/27/18 16:57 Consult Physician Urgent Consulting Provider: Jose Ashraf Consult Reason/Comments: [id number] Do you want consulting provider notified?: Yes 06/28/18 10:33 Consult Physician Urgent Consulting Provider: Eric Santiago Consult Reason/Comments: Diarrhea Do you want consulting provider notified?: Yes 06/29/18 14:07 Consult Physician Routine Consulting Provider: Osmani Zendejas Consult Reason/Comments: elevated liver enzymes Do you want consulting provider notified?: Yes 06/29/18 14:08 Consult Physician Routine Consulting Provider: Anselmo Coleman Consult Reason/Comments: Acute pyelonephritis Do you want consulting provider notified?: Yes Primary care physician: [facility]ian [facility] Hospital Course: Discharge diagnosis 1. Diarrhea. Patient has a known exposure to Shigella. Stool culture has been obtained. Infectious disease has been consulted. Patient started on Levaquin. C. diff negative. Stool occult blood positive. Per infectious disease disease patient has been started on Cipro by mouth antibiotic. Stool culture currently showing no Salmonella or Shigella. No E. coli. Per infectious disease patient can be discharged on Cipro for 3 days and follow-up in one week. 2. History of fibrillation with RVR. Cardiology services have been consulted. Per cardiology services patient has been started on eliquis for anticoagulation. Patient also started on Cardizem. Per cardiology services will like to continue to monitor patient for an additional 24 hours. Discussed case with cardiology services. Patient will be started on eliquis along with his Plavix. Patient also started on Lopressor and Cardizem per cardiology services. Patient to follow-up outpatient with cardiology services 3. History of COPD. No exacerbation at this time 4. History of prostate cancer 5. History of myocardial infarction with 4 stents RCA. Patient maintained on Plavix 6. Diabetes mellitus type 2 7. History of hyperlipidemia 8. History of essential hypertension 9. History of seizure disorder. maintained on Keppra 10. Elevated liver enzymes elevated. AST 131, ALT [address] and alkaline phosphatase [address]. CT of abdomen and pelvis with contrast completed showing intermediate density rounded area of the lateral left mid kidney may be a complex cyst. Additional workup with ultrasound is recommended this was present previously and is enlarged over the interval. Mass in not Excluded. Additional simple appearing bilateral renal cysts. Perinephric Stranding bilaterally. correlate for Pyelonephritis. Ultrasound of kidneys bladder and renal completed showing no hydronephrosis or nephrolithiasis. Bilateral simple appearing renal cysts. Incidental note made of gallbladder sludge. Urology services consulted. Per urology services patient's urine is clear and no further urological evaluation is needed. Per GI services hepatitis screen nonreactive no further workup needed at this time. Patient has been cleared for discharge from GI standpoint will repeat CMP in 1 week of discharge. We'll hold patient's statin upon discharge Hospital course This is a 78-year-old male patient presented to the emergency room with complaints of diarrhea. Patient states he was exposed to a known outbreak of Shigella at his [facility] luncheon with 30 people have confirmed cases of Shigella. Patient states that for about a week he's had abdominal cramping nausea and diarrhea. She states she's been having multiple watery stools every day. Patient also reports to having bloody diarrhea. During this time patient also experienced poor appetite. Patient denies any fever. She has known past medical history of asthma, coronary artery disease, prostate cancer, CVA, diabetes mellitus, hyperlipidemia, hypertension, myocardial infarction, osteoarthritis and seizure disorder. Patient does have a history of 4 stents to the RCA. Patient was started on Levaquin for IV antibiotics. Patient also started on normal saline at 75. EKG also completed on admission showing patient in A. fib with RVR. Patient does not have a history of atrial fibrillation. Cardiology services have been consulted and 2-D echo has been ordered. Consult placed for infectious disease. At this time patient states he is feeling much improved. Patient has been able to tolerate diet. Patient denies any nausea or vomiting at this time. Patient states bowel movements has significantly slowed down. Patient denies chest pain or shortness of breath. Patient denies nausea vomiting or diarrhea. Patient denies any urinary burning or frequency On 06/29/2018 patient is currently resting in bed. Patient states he is feeling much improved. Diarrhea has subsided. Patient is alert and oriented 3. Cardiology services have started patient on eliquis for anticoagulation due to atrial fibrillation. Patient currently on Cipro for antibiotic per infectious disease. At this time patient denies pain or shortness breath. Patient denies nausea vomiting or diarrhea. Patient denies any urinary burning or frequency On 06/30/2018 patient is alert and oriented 3 resting comfortably in bed. She expresses that he is very eager to go home. Has not had diarrhea or loose stools and multiple days. Discussed case with consulting providers patient has been cleared for discharge. Liver enzymes are improving. Per GI services patient to follow-up outpatient with CMP 1 week. Statin will be DC'd upon discharge. Patient will be discharged home on Cipro antibiotic per infectious disease will follow-up in one week. Patient will be started eliquis along with his Plavix for new onset atrial fibrillation. Per cardiology services Lopressor has been increased and Cardizem has been added. This time patient denies chest pain or shortness of breath. Patient denies any nausea vomiting or diarrhea. Patient denies any urinary burning or frequency. I performed an examination of the patient and discussed their management with the Nurse Practitioner. I have reviewed the Nurse Practitioner's notes and agree with the documented findings and plan of care Patient Condition at Discharge: Stable Plan - Discharge Summary New Discharge Prescriptions: New Apixaban [Eliquis] 2.5 mg PO BID #180 tablet Diltiazem Cd [Cardizem CD] 180 mg PO DAILY #90 cap.er.24h Metoprolol Succinate (ER) [Toprol XL] 200 mg PO DAILY #90 tab.er.24h Ciprofloxacin HCl [Cipro] 500 mg PO BID 3 Days #6 tab Continue Ipratropium/Albuterol Sulfate [Duoneb 0.5 mg-3 mg/3 ml Soln] 3 ml INHALATION RT-QID Lisinopril [Zestril] 2.5 mg PO W/SUPPER Montelukast Sodium [Singulair] 10 mg PO HS Nitroglycerin Sl Tabs [Nitrostat] 0.4 mg SUBLINGUAL Q5M PRN PRN Reason: Pain Albuterol Sulfate [Proair Hfa] 2 puff INHALATION RT-Q6H PRN PRN Reason: Shortness Of Breath Clopidogrel [Plavix] 75 mg PO DAILY Omeprazole [PriLOSEC] 20 mg PO DAILY Multivitamins, Thera [Multivitamin (formulary)] 1 tab PO DAILY Fluticasone/Salmeterol [Advair 500-50 Diskus] 1 puff INHALATION RT-BID Fluticasone Nasal [place] [Flonase Nasal [place]] 1 spray EA NOSTRIL BID diphenhydrAMINE HCL [Benadryl] 25 mg PO HS glipiZIDE [Glucotrol] 5 mg PO AC-TID tab Isosorbide Mononitrate ER [Imdur] 60 mg PO DAILY tab.er.24h Ascorbic Acid [Vitamin C] 500 mg PO DAILY levETIRAcetam [Keppra] 500 mg PO Q12HR Potassium Chloride ER [K-Dur 20] 20 meq PO DAILY Discontinued Metoprolol Succinate [Toprol XL] 100 mg PO DAILY Simvastatin [Zocor] 20 mg PO HS Aspirin EC [Ecotrin Low Dose] 81 mg PO DAILY Discharge Medication List Albuterol Sulfate [Proair Hfa] 2 puff INHALATION RT-Q6H PRN 01/11/14 [History] Clopidogrel [Plavix] 75 mg PO DAILY 01/11/14 [History] Ipratropium/Albuterol Sulfate [Duoneb 0.5 mg-3 mg/3 ml Soln] 3 ml INHALATION RT- QID 01/11/14 [History] Lisinopril [Zestril] 2.5 mg PO W/SUPPER 01/11/14 [History] Montelukast Sodium [Singulair] 10 mg PO HS 01/11/14 [History] Multivitamins, Thera [Multivitamin (formulary)] 1 tab PO DAILY 01/11/14 [History ] Nitroglycerin Sl Tabs [Nitrostat] 0.4 mg SUBLINGUAL Q5M PRN 01/11/14 [History] Omeprazole [PriLOSEC] 20 mg PO DAILY 01/11/14 [History] Fluticasone/Salmeterol [Advair 500-50 Diskus] 1 puff INHALATION RT-BID 03/28/15 [History] Fluticasone Nasal [place] [Flonase Nasal [place]] 1 spray EA NOSTRIL BID 02/25/16 [ History] diphenhydrAMINE HCL [Benadryl] 25 mg PO HS 07/22/16 [History] Isosorbide Mononitrate ER [Imdur] 60 mg PO DAILY tab.er.24h 08/05/17 [Rx] glipiZIDE [Glucotrol] 5 mg PO AC-TID tab 08/05/17 [Rx] Ascorbic Acid [Vitamin C] 500 mg PO DAILY 06/27/18 [History] Potassium Chloride ER [K-Dur 20] 20 meq PO DAILY 06/27/18 [History] levETIRAcetam [Keppra] 500 mg PO Q12HR 06/27/18 [History] Apixaban [Eliquis] 2.5 mg PO BID #180 tablet 06/30/18 [Rx] Ciprofloxacin HCl [Cipro] 500 mg PO BID 3 Days #6 tab 06/30/18 [Rx] Diltiazem Cd [Cardizem CD] 180 mg PO DAILY #90 cap.er.24h 06/30/18 [Rx] Metoprolol Succinate (ER) [Toprol XL] 200 mg PO DAILY #90 tab.er.24h 06/30/18 [ Rx] Follow up Appointment(s)/Referral(s): Florian Rdz MD [Primary Care Provider] - 1-2 days Eric Santiago MD [STAFF PHYSICIAN] - 1 Week Drake Arriaga MD [STAFF PHYSICIAN] - 3 Weeks Ambulatory/Diagnostic Orders: Comprehensive Metabolic Panel [LAB.AMB] Time Frame: 1 Week, Location: None Selected Activity/Diet/Wound Care/Special Instructions: Diet regular Activity as tolerated Discharge Disposition: HOME SELF-CARE
[2018-06-30 11:54] VITALS: BP 127/78
[2018-06-30 12:18] VITALS: PULSE 92
[2018-06-30] MEDS: MULTIVITAMINS, THERA 1 EACH TAB PO SCH (12:51)
--- NOTE | 2018-06-30 13:11 | PN ---
PROGRESS NOTE DATE OF SERVICE: 06/30/2018 REASON FOR FOLLOWUP: Gastroenteritis, possible Shigella. INTERVAL HISTORY: The patient is currently afebrile. He is breathing comfortably. Patient denies having any chest pain or shortness of breath or cough. No abdominal pain. Diarrhea has resolved. PHYSICAL EXAMINATION: On examination, blood pressure 127/78 with a pulse of 92, temperature 97.6. He is 95% on room air. General description is an elderly male up in the room in no distress. RESPIRATORY SYSTEM: Unlabored breathing, clear to auscultation anteriorly/ HEART: S1, S2. Regular rate and rhythm. ABDOMEN: Soft, no tenderness. LABS: Hemoglobin 13.7, white count 8.9 with a BUN of 8, creatinine 0.67. DIAGNOSTIC IMPRESSION AND PLAN: Patient admitted to the hospital acute diarrhea, abdominal pain and patient had been exposed to other local resident who has been diagnosed with shigella likely the same pathogen. Plan at this time is to finish therapy with the a short course of oral Cipro. Continue supportive care. MMODL / IJN: [id number] / [place]
--- NOTE | 2018-06-30 13:49 | P.PN ---
Subjective This is a pleasant 78-year-old male past medical history significant for hypertension, dyslipidemia, stable coronary artery disease, COPD, diabetes mellitus, history of seizure disorder and asthma. He follows with Dr. Arriaga in the office. He states he has been suffering with persistent diarrhea for the previous week after eating at a [employer] function where multiple people have become ill with shigella. He stated throughout the week he had noticed his heart rate seemed to be fluctuating every time he checked his blood pressure. On follow up today he is seen and examined resting comfortably in bed. He denies chest pain, shortness of breath, dizziness or palpitations. He states he cannot feel when his heart is racing. Blood pressure 127/78 heart rate 92 afebrile and maintaining oxygen saturation on room air. Laboratory data reviewed , WBC 8.9, hgb 13.7, plt 360, sodium 136, potassium 4.7, creatinine 0.67, AST65 , ALT 107, alk phos 165. HEENT: Head is atraumatic, normocephalic. Pupils are equal, round. Sclerae anicteric. Conjunctivae are clear. Mucous membranes of the mouth are moist. Neck is supple. There is no jugular venous distention. No carotid bruit is heard. LUNGS: Clear to auscultation no wheezes, rales or rhonchi. No chest wall tenderness is noted on palpation or with deep breathing. HEART: Irregular rate and rhythm without murmurs, rubs or gallops. S1 and S2 heard. EXTREMITIES: No evidence of peripheral edema and no calf tenderness noted. ASSESSMENT New onset paroxysmal atrial fibrillation Acute diarrhea with shigella Elevated liver enzymes History of coronary artery disease, currently maintained on dual antiplatelet therapy. Hypertension Dyslipidemia COPD Diabetes mellitus PLAN Heart rate control could be better, will increase verapamil to 180 mg daily. Continue toprol at 200 mg daily and eliquis 2.5 mg BID. Follow up with Dr. Arriaga in 2 weeks. Nurse Practitioner note has been reviewed, I agree with a documented findings and plan of care. Patient was seen and examined. Objective - Vital Signs Vital signs: Vital Signs Temp 97.6 F 06/30/18 11:35 Pulse 92 06/30/18 12:17 Resp 16 06/30/18 11:35 BP 127/78 06/30/18 11:35 Pulse Ox 95 06/30/18 11:35 Intake & Output 1106/30/18 06/30/18 18:59 06:59 18:59 Intake Total 100 Balance 100 Intake: Oral 100 Other: Voiding Method Toilet Toilet Toilet Urinal Urinal Urinal # Voids 3 1 - Labs CBC & Chem 7: 06/30/18 07:37 06/30/18 07:37 Labs: Abnormal Lab Results - Last 24 Hours (Table) 06/29/18 06/29/18 06/30/18 Range/Units 16:53 20:17 07:07 Sodium (137-145) mmol/L BUN (9-20) mg/dL Glucose (74-99) mg/dL POC Glucose (mg/dL) 114 H 158 H 119 H (75-99) mg/dL AST (17-59) U/L ALT (21-72) U/L Alkaline Phosphatase (38-126) U/L Total Protein (6.3-8.2) g/dL Albumin (3.5-5.0) g/dL 06/30/18 06/30/18 Range/Units 07:37 11:31 Sodium 136 L (137-145) mmol/L BUN 8 L (9-20) mg/dL Glucose 120 H (74-99) mg/dL POC Glucose (mg/dL) 146 H (75-99) mg/dL AST 65 H (17-59) U/L ALT 107 H (21-72) U/L Alkaline Phosphatase 165 H (38-126) U/L Total Protein 5.8 L (6.3-8.2) g/dL Albumin 3.2 L (3.5-5.0) g/dL Microbiology - Last 24 Hours (Table) 06/27/18 12:50 Stool Culture - Final Stool 06/27/18 12:15 Blood Culture - Preliminary Blood No Growth after 48 hours
[2018-07-01] MEDS ORDERED: DILTIAZEM CD 180 MG CAP.ER.24H PO SCH (09:00)
--- NOTE | 2018-07-02 12:25 | CDI ---
Last Revision, July 2017 Documentation Clarification Form Date: 07/02/18 From: NATHANIEL Titus Phone: If you have question, contact Iman Melo [employer] at [phone] M-F 8:30 am to 6pm. Admit Date: 06/27/2018 2:20:00 PM Patient Name: Sid Diaz Visit Number: [id number] Discharge Date: 06/30/18 ATTENTION: The Clinical Documentation Specialists (CDI) and [facility] Coding Staff appreciate your assistance in clarifying documentation. Please respond to the clarification below the line at the bottom and electronically sign. The CDI & [facility] Coding staff will review the response and follow-up if needed. Please note: Queries are made part of the Legal Health Record. If you have any questions, please contact the author of this message via ITS. Florian Lee MD Conflicting documentation has been found in the medical record. Mr. Diaz has been suffering with persistent diarrhea for the previous week after eating at a pentec[employer] function where multiple people have become ill with shigella. Assessment per the 06/30 progress note states: Acute diarrhea with shigella According to the discharge summary the stool culture is currently showing no Salmonella or Shigella. The patient was started on Levaquin during admission and is discharged on Cipro. In your opinion what is the most clinically appropriate diagnosis for this patient? Shigella Diarrhea, unknown cause Other explanation of clinical findings Unable to determine (no explanation for clinical findings) Thank you for your time. MTDD
--- NOTE | 2018-07-06 14:44 | CDI ---
Documentation Clarification Form Date: 07/02/18 From: NATHANIEL Titus Phone: If you have question, contact Iman Melo, Director Of Social Work at M-F 8:30 am to 6pm. Admit Date: 06/27/2018 2:20:00 PM Patient Name: Sid Diaz Visit Number: [id number] Discharge Date: 06/30/18 ATTENTION: The Clinical Documentation Specialists (CDI) and [facility] Coding Staff appreciate your assistance in clarifying documentation. Please respond to the clarification below the line at the bottom and electronically sign. The CDI & [facility] Coding staff will review the response and follow-up if needed. Please note: Queries are made part of the Legal Health Record. If you have any questions, please contact the author of this message via ITS. Florian Lee MD Conflicting documentation has been found in the medical record. Mr. 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 Assessment per the 06/30 progress note states: Acute diarrhea with shigella According to the discharge summary the stool culture is currently showing no Salmonella or Shigella. The patient was started on Levaquin during admission and is discharged on Cipro. In your opinion what is the most clinically appropriate diagnosis for this patient? Shigella Diarrhea, unknown cause Other explanation of clinical findings Unable to determine (no explanation for clinical findings) Thank you for your time. MTDD
--- NOTE | 2018-07-13 06:39 | CDI ---
Documentation Clarification Form Date: 07/02/18 From: NATHANIEL Titus Phone: If you have question, contact Iman Melo, Branch Operations Specialist at M-F 8:30 am to 6pm. Admit Date: 06/27/2018 2:20:00 PM Patient Name: Sid Diaz Visit Number: [id number] Discharge Date: 06/30/18 ATTENTION: The Clinical Documentation Specialists (CDI) and [facility] Coding Staff appreciate your assistance in clarifying documentation. Please respond to the clarification below the line at the bottom and electronically sign. The CDI & [facility] Coding staff will review the response and follow-up if needed. Please note: Queries are made part of the Legal Health Record. If you have any questions, please contact the author of this message via ITS. Florian Lee MD Conflicting documentation has been found in the medical record. Mr. 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 Assessment per the 06/30 progress note states: Acute diarrhea with shigella According to the discharge summary the stool culture is currently showing no Salmonella or Shigella. The patient was started on Levaquin during admission and is discharged on Cipro. In your opinion what is the most clinically appropriate diagnosis for this patient? Shigella Diarrhea, unknown cause Other explanation of clinical findings Unable to determine (no explanation for clinical findings) Thank you for your time. possible shigella. Patient had exposure to shigella MTDD
--- NOTE | 2018-07-28 08:59 | CDI ---
Documentation Clarification Form Date: 07/28/18 From: Abiola Barrow Phone: If you have question, contact Iman Melo at [phone] M-F 8:30 am to 6pm Admit Date: 06/27/2018 2:20:00 PM Patient Name: Sid Diaz Visit Number: [id number] Discharge Date: 06/30/2018 4:28:00 PM ATTENTION: The Clinical Documentation Specialists (CDI) and [facility] Coding Staff appreciate your assistance in clarifying documentation. Please respond to the clarification below the line at the bottom and electronically sign. The CDI & [facility] Coding staff will review the response and follow-up if needed. Please note: Queries are made part of the Legal Health Record. If you have any questions, please contact the author of this message via ITS. Dr. Florian Rdz Per the consult dated 06/30 the patient reports a history of alcoholism in his 20s and 30s but has not drank alcohol for more than 40 years. Patient has reported past alcohol use history. In your professional opinion, can you please clarify the status of his alcohol history? Alcoholism, in remission Alcoholism, unspecified History of alcohol use Other, please specify Unable to determine (Last Revision: November 2017) MTDD
--- NOTE | 2018-08-02 10:40 | CDI ---
Documentation Clarification Form Date: 08/02/18 From: Abiola Barrow Phone: If you have question, contact Iman Melo at [phone] M-F 8:30 am to 6pm Admit Date: 06/27/2018 2:20:00 PM Patient Name: Sid Diaz Visit Number: [id number] Discharge Date: 06/30/2018 4:28:00 PM ATTENTION: The Clinical Documentation Specialists (CDI) and [facility] Coding Staff appreciate your assistance in clarifying documentation. Please respond to the clarification below the line at the bottom and electronically sign. The CDI & [facility] Coding staff will review the response and follow-up if needed. Please note: Queries are made part of the Legal Health Record. If you have any questions, please contact the author of this message via ITS. Dr. Florian Rdz Per the consult dated 06/30, the patient reports a history of alcoholism in his 20s and 30s but has not drank alcohol for more than 40 years. Patient has reported past alcohol use history. In your professional opinion, can you please clarify the status of his alcohol history? Alcoholism, in remission Alcoholism, unspecified History of alcohol use Other, please specify Unable to determine MTDD
== END 2018-06-30 16:28 | disposition home or self-care (01) | DRG 373 ==
LOC: EC 11:50 → 3NMEDONC 14:20
PROVIDERS: ADMIT Internal Medicine; ATTEND Internal Medicine
DX: A03.9 Shigellosis, unspecified (principal); E86.0 Dehydration; J45.909 Unspecified asthma, uncomplicated; I25.10 Atherosclerotic heart disease of native coronary artery without angina pectoris; E11.9 Type 2 diabetes mellitus without complications; E78.5 Hyperlipidemia, unspecified; G40.909 Epilepsy, unspecified, not intractable, without status epilepticus; H91.92 Unspecified hearing loss, left ear; I35.1 Nonrheumatic aortic (valve) insufficiency; I10 Essential (primary) hypertension; M19.90 Unspecified osteoarthritis, unspecified site; K76.0 Fatty (change of) liver, not elsewhere classified; J44.9 Chronic obstructive pulmonary disease, unspecified; N28.1 Cyst of kidney, acquired; R74.8 Abnormal levels of other serum enzymes; I48.0 Paroxysmal atrial fibrillation; Z79.02 Long term (current) use of antithrombotics/antiplatelets; Z79.82 Long term (current) use of aspirin; Z79.51 Long term (current) use of inhaled steroids; Z79.899 Other long term (current) drug therapy; Z79.4 Long term (current) use of insulin; Z85.46 Personal history of malignant neoplasm of prostate; Z86.73 Personal history of transient ischemic attack (TIA), and cerebral infarction without residual deficits; F10.21 Alcohol dependence, in remission; I25.2 Old myocardial infarction; Z86.14 Personal history of Methicillin resistant Staphylococcus aureus infection; Z95.5 Presence of coronary angioplasty implant and graft; Z80.0 Family history of malignant neoplasm of digestive organs; Z80.8 Family history of malignant neoplasm of other organs or systems; Z82.0 Family history of epilepsy and other diseases of the nervous system; Z85.828 Personal history of other malignant neoplasm of skin; Z87.891 Personal history of nicotine dependence
CPT/HCPCS: 36415; 71046; 74177; 76770; 80053; 80074; 81003; 82272; 83036; 83605; 83735; 84443; 84484; 85025; 85610; 85730; 87040; 87045; 87046; 87324; 93005; 94640; 96365; 99285

== ENCOUNTER 2018-08-14 19:08 | Observation (INO) | payer MEDICARE ==
[2018-08-14] MEDS ORDERED: IPRATROPIUM-ALBUTEROL 3 ML NEB INHALATION STA (19:19)
[2018-08-14] MEDS ORDERED: NITROGLYCERIN OINT 1 INCH/GM PACKET TOPICAL STA (19:19)
[2018-08-14] MEDS ORDERED: ASPIRIN 81 MG PO STA (19:19)
[2018-08-14] MEDS ORDERED: methylPREDNISolone SOD SUCCI 125 MG/2 ML VIAL IV STA (19:19)
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
[2018-08-14 19:41] LABS: Basophils # (A) 0.1 k/uL (0-0.2); Basophils % (A) 2 %; Eosinophils # (A) 0.6 k/uL (0-0.7); Eosinophils % (A) 8 %; HCT 41.4 % (39.0-53.0); HGB 13.9 gm/dL (13.0-17.5); Lymphocytes # (A) 2.9 k/uL (1.0-4.8); Lymphocytes % (A) 41 %; MCHC 33.5 g/dL (31.0-37.0); MCV 86.8 fL (80.0-100.0); Mean Platelet Volume 6.5; Monocytes # (A) 0.5 k/uL (0-1.0); Monocytes % (A) 6 %; Neutrophils # (A) 2.9 k/uL (1.3-7.7); Neutrophils % (A) 40 %; Platelet Count 270 k/uL (150-450); RBC 4.77 m/uL (4.30-5.90); RDW 13.2 % (11.5-15.5); WBC 7.2 k/uL (3.8-10.6)
[2018-08-14 19:56] LABS: Partial Thromboplastin Time 25.4 sec (22.0-30.0); Prothrombin Time 10.5 sec (9.0-12.0)
[2018-08-14 20:04] LABS: ALT 22 U/L (21-72); AST 19 U/L (17-59); Albumin 3.8 g/dL (3.5-5.0); Alkaline Phosphatase 63 U/L (38-126); Anion Gap 9 mmol/L; Blood Urea Nitrogen 14 mg/dL (9-20); Calcium 9.1 mg/dL (8.4-10.2); Carbon Dioxide 25 mmol/L (22-30); Chloride 103 mmol/L (98-107); Glucose 279 mg/dL (74-99); Potassium 4.2 mmol/L (3.5-5.1); Sodium 137 mmol/L (137-145); Total Bilirubin 0.4 mg/dL (0.2-1.3); Total Protein 6.8 g/dL (6.3-8.2)
[2018-08-14 20:14] LABS: Creatine Kinase 27 U/L (55-170)
[2018-08-14 20:27] LABS: Creatine Kinase MB 0.4 ng/mL (0.0-2.4); Troponin I <0.012 ng/mL (0.000-0.034)
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
[2018-08-14] MEDS ORDERED: IPRATROPIUM-ALBUTEROL 3 ML NEB INHALATION PRN (21:19)
[2018-08-14] MEDS ORDERED: AZITHROMYCIN 500 MG in SODIUM CHLORIDE 0.9% 250 ML IVPB STA (21:19)
[2018-08-14] MEDS ORDERED: PNEUMONIA PROTOCOL UTILIZED 1 EACH MISC PO PRN (21:19)
[2018-08-14] MEDS ORDERED: NITROGLYCERIN SL TABS 0.4 MG TAB SUBLINGUAL PRN (21:19)
[2018-08-14] MEDS: IPRATROPIUM-ALBUTEROL 3 ML NEB INHALATION SCH (21:43)
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
[2018-08-14] MEDS: SODIUM CHLORIDE 0.9% 1,000 ML IV SCH (21:51)
[2018-08-14 22:58] VITALS: BMI 32.3
[2018-08-15] MEDS: methylPREDNISolone SOD SUCCI 125 MG/2 ML VIAL IV SCH ×4 (00:58→17:15)
[2018-08-15 01:40] LABS: Creatine Kinase 25 U/L (55-170)
[2018-08-15 01:54] LABS: Creatine Kinase MB 0.4 ng/mL (0.0-2.4); Troponin I <0.012 ng/mL (0.000-0.034)
[2018-08-15 07:02] LABS: Glucose,Whole Blood 257 mg/dL (75-99)
[2018-08-15 07:35] LABS: Cholesterol 141 mg/dL (<200); HDL Cholesterol 42 mg/dL (40-60); LDL Cholesterol,Calculated 87 mg/dL (0-99); Triglycerides 61 mg/dL (<150)
[2018-08-15 07:48] LABS: Creatine Kinase 26 U/L (55-170)
[2018-08-15 08:02] LABS: Creatine Kinase MB 0.4 ng/mL (0.0-2.4); Troponin I <0.012 ng/mL (0.000-0.034)
[2018-08-15] MEDS: INSULIN ASPART 100 UNIT/ML 1 ML 10 ML VIAL SQ SCH ×4 (08:32→21:03)
[2018-08-15] MEDS: ASPIRIN 325 MG TAB PO SCH (08:32)
--- NOTE | 2018-08-15 08:39 | XR ---
EXAMINATION TYPE: XR chest 2V DATE OF EXAM: 08/15/2018 COMPARISON: 08/14/2018 HISTORY: Shortness of breath TECHNIQUE: Frontal and lateral views of the chest are obtained. FINDINGS: Scattered senescent parenchymal changes noted. Hyperinflation compatible with COPD. [place] fragments overlie the left hemithorax. No evidence for infiltrate. No evidence for atelectasis. Heart size is stable. Mediastinal structures are stable and grossly unremarkable. No evidence for hilar prominence. Degenerative changes dorsal spine. IMPRESSION: 1. No evidence for acute pulmonary disease.
[2018-08-15] MEDS ORDERED: ALBUTEROL INHALER 60 PUFF/8 GM INHALER INHALATION PRN (10:39)
[2018-08-15] MEDS ORDERED: NITROGLYCERIN SL TABS 0.4 MG TAB SUBLINGUAL PRN (10:39)
[2018-08-15] MEDS: IPRATROPIUM-ALBUTEROL 3 ML NEB INHALATION SCH ×3 (10:57→20:08)
[2018-08-15] MEDS ORDERED: IPRATROPIUM-ALBUTEROL 3 ML NEB INHALATION SCH (12:00)
[2018-08-15 12:04] LABS: Glucose,Whole Blood 249 mg/dL (75-99)
[2018-08-15] MEDS: glipiZIDE 5 MG TAB PO SCH ×2 (12:23→17:55)
[2018-08-15] MEDS: levETIRAcetam 500 MG TAB PO SCH ×2 (12:23→19:56)
[2018-08-15] MEDS: POTASSIUM CHLORIDE ER 20 MEQ TAB.ER PO SCH (12:24)
[2018-08-15] MEDS: CLOPIDOGREL 75 MG TAB PO SCH (12:24)
[2018-08-15] MEDS: ISOSORBIDE MONONITRATE ER 60 MG TAB.ER.24H PO SCH (12:24)
[2018-08-15] MEDS: PANTOPRAZOLE 40 MG TABLET PO SCH (12:24)
[2018-08-15] MEDS: MULTIVITAMINS, THERA 1 EACH TAB PO SCH (12:24)
[2018-08-15] MEDS: METOPROLOL SUCCINATE (ER) 100 MG TAB.ER.24H PO SCH (12:24)
[2018-08-15] MEDS: FLUTICASONE 50MCG/SPRAY NASAL 16GM EA NOSTRIL SCH ×2 (16:21→20:04)
[2018-08-15 17:09] LABS: Glucose,Whole Blood 258 mg/dL (75-99)
[2018-08-15] MEDS: LISINOPRIL 2.5 MG TAB PO SCH (17:55)
--- NOTE | 2018-08-15 18:21 | PN ---
PROGRESS NOTE DATE OF SERVICE: 08/15/2018 He was seen on 08/15/2018. He is hemodynamically stable. He continues to have shortness of breath and is on the observation unit. PHYSICAL EXAMINATION: His respiratory rate is 18, pulse rate 89, temperature 97.4, blood pressure 149/76, O2 saturation on room air is 92%. HEENT: Unremarkable. Chest reveals expiratory wheeze with prolonged expiration. Cardiovascular system reveals an S1, S2. Abdomen is soft. There is no pedal edema. IMPRESSION: At this time: 1. Left lower lobe pneumonia. 2. Asthma with acute exacerbation. 3. Chronic obstructive pulmonary disease. Keep him on GI and DVT prophylaxis. Keep him on IV and aerosolized steroids. Depending on how he does, further changes to his care will need to be made. He was counseled regarding his condition and this approach. MARSHALL / ESTELA: [id number] /
[2018-08-15] MEDS: diphenhydrAMINE 25 MG CAP PO SCH (19:56)
[2018-08-15] MEDS: HEPARIN SODIUM,PORCINE 5,000 UNIT/ML 1 ML VIAL SQ SCH (19:56)
[2018-08-15] MEDS: FAMOTIDINE 20 MG TAB PO SCH (19:56)
[2018-08-15] MEDS: MONTELUKAST 10 MG TAB PO SCH (19:56)
[2018-08-15] MEDS: ATORVASTATIN 10 MG TAB PO SCH (19:56)
[2018-08-15] MEDS ORDERED: SYMBICORT 160-4.5 MCG INHALER INHALATION SCH (20:00)
[2018-08-15] MEDS: BUDESONIDE 0.5 MG/2 ML NEBU INHALATION SCH (20:07)
[2018-08-15] MEDS: AZITHROMYCIN 500 MG TAB PO SCH (20:46)
[2018-08-15 20:56] LABS: Glucose,Whole Blood 236 mg/dL (75-99)
[2018-08-15] MEDS: SODIUM CHLORIDE 0.9% 1,000 ML IV SCH ×2 (21:11→21:12)
[2018-08-16] MEDS: methylPREDNISolone SOD SUCCI 125 MG/2 ML VIAL IV SCH ×4 (06:00→17:10)
[2018-08-16] MEDS: BUDESONIDE 0.5 MG/2 ML NEBU INHALATION SCH ×2 (07:38→20:31)
[2018-08-16] MEDS: IPRATROPIUM-ALBUTEROL 3 ML NEB INHALATION SCH ×4 (07:38→20:31)
[2018-08-16] MEDS: INSULIN ASPART 100 UNIT/ML 1 ML 10 ML VIAL SQ SCH ×4 (08:22→20:58)
[2018-08-16] MEDS: HEPARIN SODIUM,PORCINE 5,000 UNIT/ML 1 ML VIAL SQ SCH ×2 (08:37→20:58)
[2018-08-16] MEDS: PANTOPRAZOLE 40 MG TABLET PO SCH (08:38)
[2018-08-16] MEDS: CLOPIDOGREL 75 MG TAB PO SCH (08:38)
[2018-08-16] MEDS: METOPROLOL SUCCINATE (ER) 100 MG TAB.ER.24H PO SCH (08:38)
[2018-08-16] MEDS: ISOSORBIDE MONONITRATE ER 60 MG TAB.ER.24H PO SCH (08:38)
[2018-08-16] MEDS: FAMOTIDINE 20 MG TAB PO SCH (08:38)
[2018-08-16] MEDS: POTASSIUM CHLORIDE ER 20 MEQ TAB.ER PO SCH (08:38)
[2018-08-16] MEDS: ASPIRIN 325 MG TAB PO SCH (08:38)
[2018-08-16] MEDS: glipiZIDE 5 MG TAB PO SCH ×3 (08:38→17:10)
[2018-08-16] MEDS: MULTIVITAMINS, THERA 1 EACH TAB PO SCH (08:38)
[2018-08-16] MEDS: levETIRAcetam 500 MG TAB PO SCH ×2 (08:38→20:58)
[2018-08-16] MEDS: FLUTICASONE 50MCG/SPRAY NASAL 16GM EA NOSTRIL SCH ×2 (08:41→20:58)
[2018-08-16] MEDS ORDERED: ASPIRIN 81 MG PO SCH (09:00)
[2018-08-16 11:01] LABS: Basophils % (A) 0 %; Eosinophils # (A) 0.1 k/uL (0-0.7); Eosinophils % (A) 0 %; HCT 42.7 % (39.0-53.0); HGB 13.7 gm/dL (13.0-17.5); Lymphocytes # (A) 1.1 k/uL (1.0-4.8); Lymphocytes % (A) 8 %; MCH 27.9 pg (25.0-35.0); MCHC 32.1 g/dL (31.0-37.0); MCV 86.9 fL (80.0-100.0); Mean Platelet Volume 6.2; Monocytes # (A) 0.4 k/uL (0-1.0); Monocytes % (A) 3 %; Neutrophils # (A) 11.9 k/uL (1.3-7.7); Neutrophils % (A) 88 %; Platelet Count 307 k/uL (150-450); RBC 4.91 m/uL (4.30-5.90); RDW 13.4 % (11.5-15.5); WBC 13.4 k/uL (3.8-10.6)
[2018-08-16 11:17] LABS: ALT 17 U/L (21-72); AST 19 U/L (17-59); Albumin 3.6 g/dL (3.5-5.0); Alkaline Phosphatase 59 U/L (38-126); Anion Gap 8 mmol/L; Blood Urea Nitrogen 18 mg/dL (9-20); Calcium 9.1 mg/dL (8.4-10.2); Carbon Dioxide 24 mmol/L (22-30); Chloride 104 mmol/L (98-107); Glucose 332 mg/dL (74-99); Sodium 136 mmol/L (137-145); Total Bilirubin 0.4 mg/dL (0.2-1.3); Total Protein 6.6 g/dL (6.3-8.2)
[2018-08-16 11:48] LABS: Glucose,Whole Blood 278 mg/dL (75-99)
--- NOTE | 2018-08-16 12:58 | P.PN ---
Subjective Progress Note Date: 08/16/18 78-year-old male well-known to me with history of chronic persistent asthma as well as a COPD patient has a significant history of hypertension and hypertensive cardiovascular disease, patient has been doing well for the last several months however in the last 3 or 4 days have been having more shortness of breath cough mostly dry and nonproductive has been having some chest discomfort as well, with those problem patient presented into the emergency department found to have a developing left lower lobe pneumonia, patient is being admitted into the hospital for antibiotics breathing treatments as well as steroids, labs reviewed medications reviewed care plan discussed with emergency room physician at length 08/16/2018 states patient still having some wheezing and shortness of breath. He is states he is feeling better. He is eager for discharge since his is also hospitalized. He denies any chest pain. Reports his cough is improved. Denies any nausea or vomiting. Denies any bowel movement changes or urinary symptoms. He still requiring oxygen. We'll have nursing staff ambulate patient without oxygen to see if he will need home O2. Pulmonary is following. Objective - Vital Signs Vital signs: Vital Signs Temp 97.6 F 08/16/18 11:31 Pulse 78 08/16/18 12:00 Resp 18 08/16/18 12:00 BP 150/55 08/16/18 11:31 Pulse Ox 96 08/16/18 11:31 Intake & Output 08/15/18 08/16/18 08/16/18 18:59 06:59 18:59 Intake Total 1000 480 Balance 1000 480 Weight 90.7 kg Intake: Oral 1000 480 Other: Voiding Method Toilet Toilet Toilet # Voids 1 2 - Exam Head normocephalic Neck supple Lungs wheezing noted bilaterally Heart regular rate and rhythm S1-S2, no rub or gallop Abdomen is soft nontender nondistended positive bowel sounds no hepatosplenomegaly Extremities no edema Neuro alert and orientated to 3 - Labs CBC & Chem 7: 08/16/18 10:42 08/16/18 10:42 Labs: Abnormal Lab Results - Last 24 Hours (Table) 08/15/18 08/15/18 08/16/18 Range/Units 16:56 20:54 10:42 WBC 13.4 H (3.8-10.6) k/uL Neutrophils # 11.9 H (1.3-7.7) k/uL Sodium (137-145) mmol/L Glucose (74-99) mg/dL POC Glucose (mg/dL) 258 H 236 H (75-99) mg/dL ALT (21-72) U/L 08/16/18 08/16/18 Range/Units 10:42 11:46 WBC (3.8-10.6) k/uL Neutrophils # (1.3-7.7) k/uL Sodium 136 L (137-145) mmol/L Glucose 332 H (74-99) mg/dL POC Glucose (mg/dL) 278 H (75-99) mg/dL ALT 17 L (21-72) U/L Microbiology - Last 24 Hours (Table) 08/14/18 19:15 Blood Culture - Preliminary Blood No Growth after 24 hours 08/15/18 06:20 Gram Stain - Preliminary Sputum Assessment and Plan Assessment: 1. Acute COPD exacerbation: Continue IV Solu-Medrol and bronchodilators. Pulmonary following 2. Acute tracheobronchitis with a possible left lower lobe pneumonia. Chest x- ray from yesterday was negative with no pneumonia. Continue Rocephin and azithromycin. Pulmonary following 3. Coronary artery disease with cardiac stents 4. History of CVA 5. History of prostate cancer 6. Hyperlipidemia Hep-Lock IV GI prophylaxis Pepcid and DVT prophylaxis subcu heparin Anticipate discharge possibly tomorrow I performed an examination of the patient and discussed their management with the physician [employer] Professor. I have reviewed the Physician [employer] Professor's notes and agree with the documented findings and plan of care
[2018-08-16 13:11] LABS: Hemoglobin A1C 8.7 % (4.0-6.0)
[2018-08-16 16:45] LABS: Glucose,Whole Blood 260 mg/dL (75-99)
[2018-08-16] MEDS: LISINOPRIL 2.5 MG TAB PO SCH (17:10)
[2018-08-16] MEDS: predniSONE 20 MG TAB PO SCH (18:26)
--- NOTE | 2018-08-16 18:46 | CONS ---
CONSULTATION Sid Diaz is an 78-year-old male who presented to [facility] with increasing shortness of breath of about 1-2 days duration. He also had chest discomfort and occasional dry cough. He subsequently was seen in the ER and admitted for further evaluation. PAST MEDICAL HISTORY: Positive for asthma, coronary artery disease, COPD, diabetes, hyperlipidemia, hypertension, prostate cancer, back surgery, heart catheterization with stent. FAMILY HISTORY: Positive for dementia in his father and throat cancer in his father. Mother of colon cancer. REVIEW OF SYSTEMS: Noncontributory. MEDICATIONS PRIOR TO ADMISSION: Reviewed. PHYSICAL EXAMINATION: His respiratory rate is 18, pulse rate 78, temperature 97.5, blood pressure 135/66, O2 saturation on 2 L by nasal cannula is 94%. HEENT is unremarkable. Chest reveals decreased breath sounds with prolonged expiration with expiratory wheeze only on forced expiration. Cardiovascular system reveals an S1, S2. Abdomen is soft. There is no pedal edema. Labs and meds were reviewed. IMPRESSION: 1. Left lower lobe pneumonia. 2. Asthma with acute exacerbation. 3. Chronic obstructive pulmonary disease. Continue GI and DVT prophylaxis. Change him to oral steroids today. Increase his activity level. Depending on how he does we should make further changes to his care. Keep on GI and DVT prophylaxis. I would like to thank you for allowing me the privilege of participating in his care. MMMENDEZL / VAUGHNN: [id number] /
[2018-08-16 20:47] LABS: Glucose,Whole Blood 283 mg/dL (75-99)
[2018-08-16] MEDS: MONTELUKAST 10 MG TAB PO SCH (20:58)
[2018-08-16] MEDS: AZITHROMYCIN 500 MG TAB PO SCH (20:58)
[2018-08-16] MEDS: ATORVASTATIN 10 MG TAB PO SCH (20:58)
[2018-08-16] MEDS: diphenhydrAMINE 25 MG CAP PO SCH (20:58)
[2018-08-17 04:02] VITALS: RESP 18
[2018-08-17 06:44] LABS: Glucose,Whole Blood 237 mg/dL (75-99)
[2018-08-17] MEDS: SODIUM CHLORIDE 0.9% 1,000 ML IV SCH (06:49)
[2018-08-17] MEDS: BUDESONIDE 0.5 MG/2 ML NEBU INHALATION SCH (07:01)
[2018-08-17] MEDS: IPRATROPIUM-ALBUTEROL 3 ML NEB INHALATION SCH ×2 (07:01→12:01)
[2018-08-17 07:30] LABS: Basophils % (A) 0 %; Eosinophils % (A) 0 %; HCT 41.4 % (39.0-53.0); HGB 13.2 gm/dL (13.0-17.5); Lymphocytes # (A) 1.1 k/uL (1.0-4.8); Lymphocytes % (A) 8 %; MCHC 31.9 g/dL (31.0-37.0); Mean Platelet Volume 6.5; Monocytes # (A) 0.5 k/uL (0-1.0); Monocytes % (A) 4 %; Neutrophils # (A) 11.5 k/uL (1.3-7.7); Neutrophils % (A) 87 %; Platelet Count 311 k/uL (150-450); RBC 4.71 m/uL (4.30-5.90); RDW 13.4 % (11.5-15.5); WBC 13.1 k/uL (3.8-10.6)
[2018-08-17 07:54] LABS: ALT 18 U/L (21-72); AST 17 U/L (17-59); Albumin 3.6 g/dL (3.5-5.0); Alkaline Phosphatase 60 U/L (38-126); Anion Gap 8 mmol/L; Blood Urea Nitrogen 15 mg/dL (9-20); Calcium 8.9 mg/dL (8.4-10.2); Carbon Dioxide 26 mmol/L (22-30); Chloride 103 mmol/L (98-107); Glucose 240 mg/dL (74-99); Potassium 4.1 mmol/L (3.5-5.1); Sodium 137 mmol/L (137-145); Total Bilirubin 0.4 mg/dL (0.2-1.3); Total Protein 6.3 g/dL (6.3-8.2)
[2018-08-17] MEDS: levETIRAcetam 500 MG TAB PO SCH (08:06)
[2018-08-17] MEDS: CLOPIDOGREL 75 MG TAB PO SCH (08:06)
[2018-08-17] MEDS: ASPIRIN 325 MG TAB PO SCH (08:06)
[2018-08-17] MEDS: PANTOPRAZOLE 40 MG TABLET PO SCH (08:07)
[2018-08-17] MEDS: ISOSORBIDE MONONITRATE ER 60 MG TAB.ER.24H PO SCH (08:07)
[2018-08-17] MEDS: HEPARIN SODIUM,PORCINE 5,000 UNIT/ML 1 ML VIAL SQ SCH (08:07)
[2018-08-17] MEDS: METOPROLOL SUCCINATE (ER) 100 MG TAB.ER.24H PO SCH (08:07)
[2018-08-17] MEDS: predniSONE 20 MG TAB PO SCH (08:07)
[2018-08-17] MEDS: POTASSIUM CHLORIDE ER 20 MEQ TAB.ER PO SCH (08:07)
[2018-08-17] MEDS: glipiZIDE 5 MG TAB PO SCH ×2 (08:08→12:47)
[2018-08-17] MEDS: FLUTICASONE 50MCG/SPRAY NASAL 16GM EA NOSTRIL SCH (08:08)
[2018-08-17] MEDS: INSULIN ASPART 100 UNIT/ML 1 ML 10 ML VIAL SQ SCH ×2 (08:08→12:48)
[2018-08-17 11:36] LABS: Glucose,Whole Blood 197 mg/dL (75-99)
[2018-08-17 12:11] VITALS: BP 144/81; PULSE 84; TEMP 97.6
[2018-08-17] MEDS: MULTIVITAMINS, THERA 1 EACH TAB PO SCH (12:47)
--- NOTE | 2018-08-17 13:13 | P.DS ---
Providers Date of admission: 08/14/18 21:20 Expected date of discharge: 08/17/18 Attending physician: Florian Rdz Consults: 08/16/18 14:19 Consult Physician Routine Consulting Provider: Santana Stanley Consult Reason/Comments: copd Do you want consulting provider notified?: Yes Primary care physician: Florian Rdz [facility] Course: Discharge diagnosis 1. Acute COPD exacerbation: She will be DC'd on 3 days 60 mg prednisone taper 2. Acute tracheobronchitis with a possible left lower lobe pneumonia. Chest x- ray from yesterday was negative with no pneumonia. Continue Rocephin and azithromycin. Pulmonary following. She has been cleared for discharge from pulmonary services. Patient will be DC'd on Ceftin antibiotic. Patient advised to follow up with pulmonary and PCP services 3. Coronary artery disease with cardiac stents 4. History of CVA 5. History of prostate cancer 6. Hyperlipidemia Hospital course 78-year-old male well-known to me with history of chronic persistent asthma as well as a COPD patient has a significant history of hypertension and hypertensive cardiovascular disease, patient has been doing well for the last several months however in the last 3 or 4 days have been having more shortness of breath cough mostly dry and nonproductive has been having some chest discomfort as well, with those problem patient presented into the emergency department found to have a developing left lower lobe pneumonia, patient is being admitted into the hospital for antibiotics breathing treatments as well as steroids, labs reviewed medications reviewed care plan discussed with emergency room physician at length 08/16/2018 states patient still having some wheezing and shortness of breath. He is states he is feeling better. He is eager for discharge since his is also hospitalized. He denies any chest pain. Reports his cough is improved. Denies any nausea or vomiting. Denies any bowel movement changes or urinary symptoms. He still requiring oxygen. We'll have nursing staff ambulate patient without oxygen to see if he will need home O2. Pulmonary is following. On 08/17/2018 patient states he feels much improved. Patient has been on room air ambulating without significant shortness of breath. Patient states he feels ready to go home. Patient denies chest pain. Patient denies any shortness of breath. Patient denies nausea or vomiting. Patient denies any changes to bladder or bowel function. Patient has been cleared for discharge from pulmonary services. Patient advised to follow-up with pulmonary and PCP I performed an examination of the patient and discussed their management with the Nurse Practitioner. I have reviewed the Nurse Practitioner's notes and agree with the documented findings and plan of care Patient Condition at Discharge: Stable Plan - Discharge Summary New Discharge Prescriptions: New Cefuroxime Axetil [Ceftin] 500 mg PO BID 10 Days #20 tab predniSONE 10 mg PO DIRECTED #48 tab Continue Ipratropium/Albuterol Sulfate [Duoneb 0.5 mg-3 mg/3 ml Soln] 3 ml INHALATION RT-QID Lisinopril [Zestril] 2.5 mg PO W/SUPPER Montelukast Sodium [Singulair] 10 mg PO HS Nitroglycerin Sl Tabs [Nitrostat] 0.4 mg SUBLINGUAL Q5M PRN PRN Reason: Pain Albuterol Sulfate [Proair Hfa] 2 puff INHALATION RT-Q6H PRN PRN Reason: Shortness Of Breath Clopidogrel [Plavix] 75 mg PO DAILY Omeprazole [PriLOSEC] 20 mg PO DAILY Multivitamins, Thera [Multivitamin (formulary)] 1 tab PO DAILY Fluticasone/Salmeterol [Advair 500-50 Diskus] 1 puff INHALATION RT-BID Fluticasone Nasal [place] [Flonase Nasal [place]] 1 spray EA NOSTRIL BID diphenhydrAMINE HCL [Benadryl] 25 mg PO HS glipiZIDE [Glucotrol] 5 mg PO AC-TID tab Isosorbide Mononitrate ER [Imdur] 60 mg PO DAILY tab.er.24h levETIRAcetam [Keppra] 500 mg PO Q12HR Potassium Chloride ER [K-Dur 20] 20 meq PO DAILY Metoprolol Succinate (ER) [Toprol XL] 100 mg PO DAILY Aspirin [[place] Aspirin EC] 81 mg PO DAILY Simvastatin [Zocor] 20 mg PO HS Discharge Medication List Albuterol Sulfate [Proair Hfa] 2 puff INHALATION RT-Q6H PRN 01/11/14 [History] Clopidogrel [Plavix] 75 mg PO DAILY 01/11/14 [History] Ipratropium/Albuterol Sulfate [Duoneb 0.5 mg-3 mg/3 ml Soln] 3 ml INHALATION RT- QID 01/11/14 [History] Lisinopril [Zestril] 2.5 mg PO W/SUPPER 01/11/14 [History] Montelukast Sodium [Singulair] 10 mg PO HS 01/11/14 [History] Multivitamins, Thera [Multivitamin (formulary)] 1 tab PO DAILY 01/11/14 [History ] Nitroglycerin Sl Tabs [Nitrostat] 0.4 mg SUBLINGUAL Q5M PRN 01/11/14 [History] Omeprazole [PriLOSEC] 20 mg PO DAILY 01/11/14 [History] Fluticasone/Salmeterol [Advair 500-50 Diskus] 1 puff INHALATION RT-BID 03/28/15 [History] Fluticasone Nasal [place] [Flonase Nasal [place]] 1 spray EA NOSTRIL BID 02/25/16 [ History] diphenhydrAMINE HCL [Benadryl] 25 mg PO HS 07/22/16 [History] Isosorbide Mononitrate ER [Imdur] 60 mg PO DAILY tab.er.24h 08/05/17 [Rx] glipiZIDE [Glucotrol] 5 mg PO AC-TID tab 08/05/17 [Rx] Potassium Chloride ER [K-Dur 20] 20 meq PO DAILY 06/27/18 [History] levETIRAcetam [Keppra] 500 mg PO Q12HR 06/27/18 [History] Aspirin [[place] Aspirin EC] 81 mg PO DAILY 08/14/18 [History] Metoprolol Succinate (ER) [Toprol XL] 100 mg PO DAILY 08/14/18 [History] Simvastatin [Zocor] 20 mg PO HS 08/14/18 [History] Cefuroxime Axetil [Ceftin] 500 mg PO BID 10 Days #20 tab 08/17/18 [Rx] predniSONE 10 mg PO DIRECTED #48 tab 08/17/18 [Rx] Follow up Appointment(s)/Referral(s): Florian Rdz MD [Primary Care Provider] - 1-2 days Santana Stanley MD [STAFF PHYSICIAN] - 1 Week Activity/Diet/Wound Care/Special Instructions: Diet heart healthy Activity as tolerated Discharge Disposition: HOME SELF-CARE
--- NOTE | 2018-08-17 17:56 | PN ---
PROGRESS NOTE DATE OF SERVICE: 08/17/2018 He was seen again on 08/17/2018. He is at baseline as far as shortness of breath goes. On physical examination, respiratory rate is 18, pulse rate 84, temperature 97.6, blood pressure 144/81, O2 saturation on room air is 94%. HEENT is unremarkable. Chest reveals prolonged expiration. No clear wheeze. Cardiovascular system reveals an S1, S2. Abdomen is soft. There is no pedal edema. IMPRESSION: At this time is: 1. Left lower lobe pneumonia. 2. Asthma with acute exacerbation. 3. Chronic obstructive pulmonary disease. Agree with possible discharge planning on a tapering dose of steroids. Increase activity level. Continue bronchodilators. His prognosis is fair. MMODL / IJN: [id number] /
== END 2018-08-17 15:05 | disposition home or self-care (01) ==
LOC: EC 19:08 → 1SOBS 21:20
PROVIDERS: ADMIT Internal Medicine; ATTEND Internal Medicine
DX: J44.1 Chronic obstructive pulmonary disease with (acute) exacerbation (principal); J20.9 Acute bronchitis, unspecified; J44.0 Chronic obstructive pulmonary disease with (acute) lower respiratory infection; I25.10 Atherosclerotic heart disease of native coronary artery without angina pectoris; E78.5 Hyperlipidemia, unspecified; I11.9 Hypertensive heart disease without heart failure; J45.30 Mild persistent asthma, uncomplicated; J45.901 Unspecified asthma with (acute) exacerbation; E11.9 Type 2 diabetes mellitus without complications; M19.90 Unspecified osteoarthritis, unspecified site; H91.92 Unspecified hearing loss, left ear; L71.9 Rosacea, unspecified; E66.9 Obesity, unspecified; Z68.32 Body mass index [BMI] 32.0-32.9, adult; G47.30 Sleep apnea, unspecified; I25.2 Old myocardial infarction; Z79.84 Long term (current) use of oral hypoglycemic drugs; Z79.899 Other long term (current) drug therapy; Z79.02 Long term (current) use of antithrombotics/antiplatelets; Z79.01 Long term (current) use of anticoagulants; Z79.82 Long term (current) use of aspirin; Z88.5 Allergy status to narcotic agent; Z88.8 Allergy status to other drugs, medicaments and biological substances; Z95.5 Presence of coronary angioplasty implant and graft; Z86.73 Personal history of transient ischemic attack (TIA), and cerebral infarction without residual deficits; Z85.46 Personal history of malignant neoplasm of prostate; Z86.14 Personal history of Methicillin resistant Staphylococcus aureus infection; Z87.09 Personal history of other diseases of the respiratory system; Z86.19 Personal history of other infectious and parasitic diseases; Z87.891 Personal history of nicotine dependence; Z85.828 Personal history of other malignant neoplasm of skin; Z82.0 Family history of epilepsy and other diseases of the nervous system; Z80.0 Family history of malignant neoplasm of digestive organs; Z80.8 Family history of malignant neoplasm of other organs or systems; G40.909 Epilepsy, unspecified, not intractable, without status epilepticus
CPT/HCPCS: 96366 ×2; 96372 ×3; 96376 ×2; 96365 ×2; 96375; 99285; 36415; 94640 ×8; 94760; 93005; 80061; 80053 ×3; 82550 ×2; 82553 ×2; 83605; 84484 ×2; 85025 ×3; 85610; 85730; 87040; 87070; 87205; 83036; 71046 ×2; G0378 ×4; J1644 ×3; J2930 ×3; J0456; J0696 ×3; J7512 ×2

== ENCOUNTER 2018-08-28 10:24 | Inpatient (IN) | payer MEDICARE ==
[2018-08-28] MEDS ORDERED: IPRATROPIUM-ALBUTEROL 3 ML NEB INHALATION STA (10:48)
[2018-08-28] MEDS ORDERED: DILTIAZEM DRIP BOLUS FROM BAG 1 MG SOLN IV ONE (10:49)
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
[2018-08-28] MEDS: DILTIAZEM 50 MG in SODIUM CHLORIDE 0.9% 40 ML IV SCH ×2 (11:15→20:08)
[2018-08-28 11:16] LABS: Basophils # (A) 0.1 k/uL (0-0.2); Basophils % (A) 0 %; Eosinophils # (A) 0.2 k/uL (0-0.7); Eosinophils % (A) 1 %; HCT 50.5 % (39.0-53.0); HGB 16.1 gm/dL (13.0-17.5); Lymphocytes # (A) 2.6 k/uL (1.0-4.8); Lymphocytes % (A) 15 %; MCH 28.3 pg (25.0-35.0); MCHC 31.9 g/dL (31.0-37.0); MCV 88.8 fL (80.0-100.0); Mean Platelet Volume 6.5; Monocytes # (A) 0.9 k/uL (0-1.0); Monocytes % (A) 5 %; Neutrophils % (A) 77 %; Platelet Count 263 k/uL (150-450); RBC 5.68 m/uL (4.30-5.90); RDW 13.9 % (11.5-15.5); WBC 16.9 k/uL (3.8-10.6)
[2018-08-28 11:19] LABS: Partial Thromboplastin Time 22.1 sec (22.0-30.0); Prothrombin Time 10.4 sec (9.0-12.0)
[2018-08-28 11:28] LABS: Albumin 3.9 g/dL (3.5-5.0); Anion Gap 9 mmol/L; Blood Urea Nitrogen 22 mg/dL (9-20); Calcium 9.2 mg/dL (8.4-10.2); Carbon Dioxide 21 mmol/L (22-30); Chloride 103 mmol/L (98-107); Glucose 356 mg/dL (74-99); Magnesium 2.1 mg/dL (1.6-2.3); Sodium 133 mmol/L (137-145); Total Bilirubin 1.1 mg/dL (0.2-1.3); Total Protein 6.9 g/dL (6.3-8.2)
[2018-08-28 11:30] LABS: ALT 35 U/L (21-72); AST 22 U/L (17-59); Alkaline Phosphatase 53 U/L (38-126); Potassium 4.7 mmol/L (3.5-5.1)
[2018-08-28 11:36] LABS: Creatine Kinase 25 U/L (55-170)
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
[2018-08-28 11:49] LABS: Creatine Kinase MB 0.7 ng/mL (0.0-2.4); Troponin I <0.012 ng/mL (0.000-0.034)
[2018-08-28] MEDS ORDERED: methylPREDNISolone SOD SUCCI 125 MG/2 ML VIAL IV STA (12:32)
[2018-08-28] MEDS ORDERED: SODIUM CHLORIDE 0.9% 500 ML 500 ML IV STA (12:33)
[2018-08-28] MEDS ORDERED: NALOXONE 0.4 MG/ML 1 ML VIAL IV PRN (13:22)
[2018-08-28] MEDS ORDERED: NITROGLYCERIN SL TABS 0.4 MG TAB SUBLINGUAL PRN (13:29)
[2018-08-28] MEDS ORDERED: DILTIAZEM CD 180 MG CAP.ER.24H PO SCH (13:30)
[2018-08-28] MEDS: FUROSEMIDE 10 MG/ML 4 ML VIAL IV STA (14:25)
[2018-08-28] MEDS: SODIUM CHLORIDE 0.9% 1,000 ML IV SCH ×2 (15:31→22:26)
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
[2018-08-28] MEDS: IPRATROPIUM-ALBUTEROL 3 ML NEB INHALATION SCH ×4 (16:46→23:29)
[2018-08-28 17:25] LABS: Glucose,Whole Blood 296 mg/dL (75-99)
[2018-08-28] MEDS: INSULIN ASPART 100 UNIT/ML 1 ML 10 ML VIAL SQ SCH ×2 (17:56→22:26)
[2018-08-28] MEDS: LISINOPRIL 2.5 MG TAB PO SCH (17:56)
[2018-08-28] MEDS: methylPREDNISolone SOD SUCCI 125 MG/2 ML VIAL IV SCH ×2 (17:57→22:29)
[2018-08-28] MEDS: METOPROLOL SUCCINATE (ER) 100 MG TAB.ER.24H PO SCH (17:59)
[2018-08-28] MEDS: SYMBICORT 160-4.5 MCG INHALER INHALATION SCH (19:54)
[2018-08-28] MEDS: ATORVASTATIN 10 MG TAB PO SCH (20:03)
[2018-08-28] MEDS: levETIRAcetam 500 MG TAB PO SCH (20:03)
[2018-08-28] MEDS: APIXABAN 2.5 MG TABLET PO SCH (20:03)
[2018-08-28] MEDS: guaiFENesin 600 MG TABLET.ER PO SCH (20:03)
[2018-08-28 20:35] LABS: Glucose,Whole Blood 284 mg/dL (75-99)
[2018-08-28 22:21] LABS: Glucose,Whole Blood 202 mg/dL (75-99)
[2018-08-28] MEDS: MONTELUKAST 10 MG TAB PO SCH (22:26)
[2018-08-28 23:23] LABS: Hemoglobin A1C 9.2 % (4.0-6.0)
[2018-08-29] MEDS: IPRATROPIUM-ALBUTEROL 3 ML NEB INHALATION SCH ×6 (03:14→23:52)
[2018-08-29 06:00] LABS: Glucose,Whole Blood 143 mg/dL (75-99)
[2018-08-29] MEDS: PANTOPRAZOLE 40 MG TABLET PO SCH (06:23)
[2018-08-29] MEDS: methylPREDNISolone SOD SUCCI 125 MG/2 ML VIAL IV SCH ×4 (06:23→23:04)
[2018-08-29] MEDS: DILTIAZEM 50 MG in SODIUM CHLORIDE 0.9% 40 ML IV SCH ×3 (06:24→21:55)
[2018-08-29] MEDS: INSULIN ASPART 100 UNIT/ML 1 ML 10 ML VIAL SQ SCH ×4 (06:24→21:55)
[2018-08-29 07:00] LABS: Basophils % (A) 0 %; Eosinophils % (A) 0 %; HCT 46.3 % (39.0-53.0); HGB 15.8 gm/dL (13.0-17.5); Lymphocytes % (A) 8 %; MCH 29.5 pg (25.0-35.0); MCHC 34.1 g/dL (31.0-37.0); MCV 86.5 fL (80.0-100.0); Mean Platelet Volume 6.5; Monocytes # (A) 0.3 k/uL (0-1.0); Monocytes % (A) 3 %; Neutrophils # (A) 11.1 k/uL (1.3-7.7); Neutrophils % (A) 88 %; Platelet Count 206 k/uL (150-450); RBC 5.35 m/uL (4.30-5.90); RDW 13.6 % (11.5-15.5); WBC 12.6 k/uL (3.8-10.6)
[2018-08-29 07:24] LABS: ALT 31 U/L (21-72); AST 21 U/L (17-59); Albumin 3.3 g/dL (3.5-5.0); Alkaline Phosphatase 50 U/L (38-126); Anion Gap 7 mmol/L; Blood Urea Nitrogen 19 mg/dL (9-20); Calcium 8.8 mg/dL (8.4-10.2); Carbon Dioxide 23 mmol/L (22-30); Chloride 103 mmol/L (98-107); Glucose 162 mg/dL (74-99); Potassium 4.1 mmol/L (3.5-5.1); Sodium 133 mmol/L (137-145); Total Bilirubin 0.7 mg/dL (0.2-1.3)
[2018-08-29] MEDS ORDERED: ASPIRIN 81 MG PO SCH (09:00)
[2018-08-29] MEDS ORDERED: METOPROLOL SUCCINATE (ER) 100 MG TAB.ER.24H PO SCH (09:00)
[2018-08-29] MEDS: SYMBICORT 160-4.5 MCG INHALER INHALATION SCH ×2 (09:07→20:37)
[2018-08-29] MEDS: LEVOFLOXACIN 500 MG TAB PO SCH (09:24)
[2018-08-29] MEDS: APIXABAN 2.5 MG TABLET PO SCH ×2 (09:24→20:10)
[2018-08-29] MEDS: levETIRAcetam 500 MG TAB PO SCH ×2 (09:24→20:10)
[2018-08-29] MEDS: guaiFENesin 600 MG TABLET.ER PO SCH ×2 (09:24→20:10)
[2018-08-29] MEDS: METOPROLOL SUCCINATE (ER) 100 MG TAB.ER.24H PO SCH (09:24)
[2018-08-29] MEDS: POTASSIUM CHLORIDE ER 20 MEQ TAB.ER PO SCH (09:24)
[2018-08-29] MEDS: CLOPIDOGREL 75 MG TAB PO SCH (09:24)
[2018-08-29] MEDS: ISOSORBIDE MONONITRATE ER 60 MG TAB.ER.24H PO SCH (09:24)
[2018-08-29] MEDS: SODIUM CHLORIDE 0.9% 1,000 ML IV SCH (09:25)
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
--- NOTE | 2018-08-29 10:44 | P.PN ---
Subjective Progress Note Date: 08/29/18 Sid Diaz is an 78-year-old male who presented to [facility] emergency room with a chief complaint of worsening shortness of breath he was evaluated in emergency room and had evidence of atrial fibrillation with rapid ventricular response he also had evidence of acute bronchitis, COPD exacerbation , he was hypotensive in the emergency room he was given IV fluid boluses, he was started on IV Cardizem drip, he was started on Levaquin for antibiotic he was also started on IV Solu-Medrol and inhaled bronchodilators he was admitted to telemetry floor for further evaluation and treatment cardiology consultation and pulmonary consultation were requested. Patient was recently admitted to [facility] with similar complaints he received antibiotics and IV steroids and was discharged home on , patient took oral antibiotic and oral steroids at home and was doing better however in the last 2-3 days his condition started to worsen. On 08/29/2018 patient was seen and examined on the telemetry floor he is alert and oriented 3 in no apparent distress he is still complaining of shortness of breath and cough otherwise he denies any complaints there is no fever or chills no headache or dizziness no chest pain no nausea or vomiting no abdominal pain and no urinary symptoms. Objective - Vital Signs Vital signs: Vital Signs Temp 97.2 F L 08/29/18 08:00 Pulse 76 08/29/18 09:20 Resp 17 08/29/18 04:00 BP 135/71 08/29/18 08:00 Pulse Ox 95 08/29/18 08:00 Intake & Output 08/28/18 08/29/18 08/29/18 18:59 06:59 18:59 Intake Total 50.00 472 Balance 50.00 472 Weight 86.183 kg 98.5 kg Intake: Intake, IV Titration 50.00 250 Amount Diltiazem 50 mg In Sodium 50.00 50 Chloride 0.9% 40 ml @ 5 MG/HR 5 mls/hr IV .Q10H [facility] Rx#:[id number] Sodium Chloride 0.9% 1, 200 000 ml @ 100 mls/hr IV . Q10H [facility] Rx#:[id number] Oral 222 Other: Voiding Method Urinal # Voids 2 # Bowel Movements 1 - Exam In general patient is alert and oriented 3 in no apparent distress HEENT head normocephalic and atraumatic Neck is supple no JVD no goiter no lymphadenopathy Chest exam reveals coarse crackles in both lung villarreal with wheezing Cardiac exam reveals irregular heart sounds S1 and S2 with tachycardia no gallops no murmurs Abdomen is soft nontender no organomegaly with normal bowel sounds Extremity exam reveals no edema no cyanosis or clubbing Neurological examination reveals no gross focal deficit - Labs CBC & Chem 7: 08/29/18 06:27 08/29/18 06:27 Labs: Abnormal Lab Results - Last 24 Hours (Table) 08/28/18 08/28/18 08/28/18 Range/Units 10:48 10:48 10:48 WBC 16.9 H (3.8-10.6) k/uL Neutrophils # 13.0 H (1.3-7.7) k/uL Sodium 133 L (137-145) mmol/L Carbon Dioxide 21 L (22-30) mmol/L BUN 22 H (9-20) mg/dL Creatinine (0.66-1.25) mg/dL Glucose 356 H (74-99) mg/dL POC Glucose (mg/dL) (75-99) mg/dL Hemoglobin A1c (4.0-6.0) % Total Creatine Kinase 25 L (55-170) U/L Total Protein (6.3-8.2) g/dL Albumin (3.5-5.0) g/dL 08/28/18 08/28/18 08/28/18 Range/Units 10:48 16:56 20:34 WBC (3.8-10.6) k/uL Neutrophils # (1.3-7.7) k/uL Sodium (137-145) mmol/L Carbon Dioxide (22-30) mmol/L BUN (9-20) mg/dL Creatinine (0.66-1.25) mg/dL Glucose (74-99) mg/dL POC Glucose (mg/dL) 296 H 284 H (75-99) mg/dL Hemoglobin A1c 9.2 H (4.0-6.0) % Total Creatine Kinase (55-170) U/L Total Protein (6.3-8.2) g/dL Albumin (3.5-5.0) g/dL 08/28/18 08/29/18 08/29/18 Range/Units 22:20 05:59 06:27 WBC 12.6 H (3.8-10.6) k/uL Neutrophils # 11.1 H (1.3-7.7) k/uL Sodium (137-145) mmol/L Carbon Dioxide (22-30) mmol/L BUN (9-20) mg/dL Creatinine (0.66-1.25) mg/dL Glucose (74-99) mg/dL POC Glucose (mg/dL) 202 H 143 H (75-99) mg/dL Hemoglobin A1c (4.0-6.0) % Total Creatine Kinase (55-170) U/L Total Protein (6.3-8.2) g/dL Albumin (3.5-5.0) g/dL 08/29/18 Range/Units 06:27 WBC (3.8-10.6) k/uL Neutrophils # (1.3-7.7) k/uL Sodium 133 L (137-145) mmol/L Carbon Dioxide (22-30) mmol/L BUN (9-20) mg/dL Creatinine 0.53 L (0.66-1.25) mg/dL Glucose 162 H (74-99) mg/dL POC Glucose (mg/dL) (75-99) mg/dL Hemoglobin A1c (4.0-6.0) % Total Creatine Kinase (55-170) U/L Total Protein 6.0 L (6.3-8.2) g/dL Albumin 3.3 L (3.5-5.0) g/dL Assessment and Plan Plan: #1 acute purulent bronchitis chest x-ray done in the emergency room does not reveal any evidence of pneumonia, he was started on oral Levaquin 500 mg daily, will obtain sputum culture #2 acute exacerbation of chronic obstructive pulmonary disease patient was started on IV Solu-Medrol 60 mg every 6 hours he was also started on inhaled bronchodilators, 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 #4 underlying history of coronary artery disease with previous stent placement, no chest pain at this time #5 underlying history of prostate cancer. #6 underlying history of hyperlipidemia #7 acute on chronic hypoxic respiratory failure requiring home oxygen use For GI prophylaxis patient is maintained on Protonix for DVT prophylaxis patient is maintained on Eliquis Patient is improving gradually continue with current care.
[2018-08-29 12:03] LABS: Glucose,Whole Blood 219 mg/dL (75-99)
[2018-08-29] MEDS: MULTIVITAMINS, THERA 1 EACH TAB PO SCH (12:13)
[2018-08-29] MEDS ORDERED: FUROSEMIDE 10 MG/ML 4 ML VIAL ONE (12:21)
[2018-08-29] MEDS: FUROSEMIDE 10 MG/ML 4 ML VIAL IV STA (12:22)
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
[2018-08-29 17:06] LABS: Glucose,Whole Blood 367 mg/dL (75-99)
[2018-08-29] MEDS: LISINOPRIL 2.5 MG TAB PO SCH (17:20)
[2018-08-29] MEDS: MONTELUKAST 10 MG TAB PO SCH (20:10)
[2018-08-29] MEDS: ATORVASTATIN 10 MG TAB PO SCH (20:10)
[2018-08-29 20:59] LABS: Glucose,Whole Blood 317 mg/dL (75-99)
[2018-08-29] MEDS ORDERED: INSULIN ASPART 100 UNIT/ML 1 ML 10 ML VIAL SQ ONE (21:49)
[2018-08-30] MEDS: DILTIAZEM 50 MG in SODIUM CHLORIDE 0.9% 40 ML IV SCH ×4 (02:00→13:44)
[2018-08-30] MEDS: IPRATROPIUM-ALBUTEROL 3 ML NEB INHALATION SCH ×6 (02:22→23:42)
[2018-08-30 06:30] LABS: Glucose,Whole Blood 262 mg/dL (75-99)
[2018-08-30] MEDS ORDERED: INSULIN ASPART 100 UNIT/ML 1 ML 10 ML VIAL SQ ONE ×3 (06:47→21:45)
[2018-08-30] MEDS: methylPREDNISolone SOD SUCCI 125 MG/2 ML VIAL IV SCH ×4 (07:01→22:43)
[2018-08-30] MEDS: PANTOPRAZOLE 40 MG TABLET PO SCH (07:02)
[2018-08-30] MEDS: INSULIN ASPART 100 UNIT/ML 1 ML 10 ML VIAL SQ SCH ×4 (07:02→21:50)
[2018-08-30] MEDS: SYMBICORT 160-4.5 MCG INHALER INHALATION SCH ×2 (08:15→19:49)
[2018-08-30] MEDS: APIXABAN 2.5 MG TABLET PO SCH ×2 (09:42→19:59)
[2018-08-30] MEDS: guaiFENesin 600 MG TABLET.ER PO SCH ×2 (09:42→19:59)
[2018-08-30] MEDS: levETIRAcetam 500 MG TAB PO SCH ×2 (09:42→19:59)
[2018-08-30] MEDS: METOPROLOL SUCCINATE (ER) 100 MG TAB.ER.24H PO SCH (09:42)
[2018-08-30] MEDS: POTASSIUM CHLORIDE ER 20 MEQ TAB.ER PO SCH (09:42)
[2018-08-30] MEDS: CLOPIDOGREL 75 MG TAB PO SCH (09:43)
[2018-08-30] MEDS: LEVOFLOXACIN 500 MG TAB PO SCH (09:43)
[2018-08-30 11:20] LABS: Glucose,Whole Blood 239 mg/dL (75-99)
[2018-08-30 11:25] LABS: Basophils % (A) 0 %; Eosinophils # (A) 0.1 k/uL (0-0.7); Eosinophils % (A) 0 %; HCT 44.9 % (39.0-53.0); HGB 15.3 gm/dL (13.0-17.5); Lymphocytes # (A) 0.7 k/uL (1.0-4.8); Lymphocytes % (A) 3 %; MCH 29.8 pg (25.0-35.0); MCV 87.6 fL (80.0-100.0); Mean Platelet Volume 6.6; Monocytes # (A) 0.9 k/uL (0-1.0); Monocytes % (A) 5 %; Neutrophils # (A) 19.2 k/uL (1.3-7.7); Neutrophils % (A) 92 %; Platelet Count 215 k/uL (150-450); RBC 5.12 m/uL (4.30-5.90); RDW 13.7 % (11.5-15.5); WBC 20.9 k/uL (3.8-10.6)
--- NOTE | 2018-08-30 11:39 | P.PN ---
Subjective Progress Note Date: 08/30/18 Principal diagnosis: Acute COPD exacerbation, tracheobronchitis, chronic persistent severe asthma, obstructive sleep apnea, congestive heart failure likely acute diastolic heart failure related to atrial fibrillation and rapid ventricular response, morbid obesity, coronary artery disease 08/30/2018, patient seen eval examined during the rounds clinically has been doing slightly better cough congestion shortness breath is improved but is still have ongoing respiratory symptoms heart rate remained stable, but is still have intermittent episodes of tachycardia, patient remains afebrile, white cell count have gone up likely related to high-dose IV steroids labs reviewed medications reviewed 78-year-old male with history of end-stage lung disease agrees severe COPD emphysema also history of chronic persistent ALLERGIC asthma, patient was brought in the emergency department by the EMS due to severe shortness of breath palpitation, patient symptoms started about 2 days prior to coming into the hospital associated with increased cough congestion patient does have the rapid atrial fibrillation arrival, he does have history of coronary artery disease with 4 stents to were pleased in this institute and 2 were presented history of [place], patient spontaneously converted back to sinus rhythm cardiovascular services has been evaluating this patient as well he still complaining of cough congestion shortness of breath, currently patient is being treated with his home medications, , IV Cardizem as been initiated which is being discontinued, patient is being treated with broad-spectrum antibiotics bronchodilators and steroid, chest x-ray failed to reveal any active infiltrate but however consistent with COPD Objective - Vital Signs Vital signs: Vital Signs Temp 97.4 F L 08/30/18 11:21 Pulse 116 H 08/30/18 11:21 Resp 20 08/30/18 11:21 BP 112/66 08/30/18 11:21 Pulse Ox 93 L 08/30/18 11:21 Intake & Output 08/29/18 08/30/18 08/30/18 18:59 06:59 18:59 Intake Total 540 238.333 290 Output Total 2350 600 700 Balance -1810 -361.667 -410 Weight 98.5 kg 87.2 kg Intake: IV 90 Invasive Line 1 90 Intake, IV Titration 60 148.333 50 Amount Diltiazem 50 mg In Sodium 60 148.333 50 Chloride 0.9% 40 ml @ 15 MG/HR 15 mls/hr IV . Q3H20M [facility] Rx#:[id number] Oral 480 240 Output: Urine 2350 600 700 Other: Voiding Method Urinal Urinal # Voids 1 1 - Exam Constitutional General appearance: average body habitus, cooperative, disheveled, mild distress , obese - EENT Eyes: EOMI, PERRLA, poor dentition, normal appearance Ears: bilateral: normal - Neck Carotids: bilateral: upstroke normal, bruit absent Thyroid: bilateral: normal size - Respiratory Respiratory: bilateral: diminished, rhonchi, wheezing, prolonged expiration, negative: CTA, dullness, rales, prolonged inspiration - Cardiovascular Rhythm: regular Heart sounds: normal: S1, S2 - Gastrointestinal General gastrointestinal: absent bowel sounds - Neurologic Neurologic: CNII-XII intact - Musculoskeletal Musculoskeletal: gait normal, generalized weakness, strength equal bilaterally - Psychiatric Psychiatric: A&O x's 3, appropriate affect, intact judgment & insight - Labs CBC & Chem 7: 08/30/18 11:09 08/29/18 06:27 Labs: Abnormal Lab Results - Last 24 Hours (Table) 08/29/18 08/29/18 08/29/18 Range/Units 11:25 17:03 20:58 WBC (3.8-10.6) k/uL Neutrophils # (1.3-7.7) k/uL Lymphocytes # (1.0-4.8) k/uL POC Glucose (mg/dL) 219 H 367 H 317 H (75-99) mg/dL 08/30/18 08/30/18 08/30/18 Range/Units 06:29 11:09 11:17 WBC 20.9 H (3.8-10.6) k/uL Neutrophils # 19.2 H (1.3-7.7) k/uL Lymphocytes # 0.7 L (1.0-4.8) k/uL POC Glucose (mg/dL) 262 H 239 H (75-99) mg/dL Assessment and Plan Assessment: Acute purulent tracheobronchitis Atrial fibrillation with rapid ventricular response Acute COPD exacerbation Chronic persistent severe asthma with component of ALLERGIC asthma Coronary artery disease with history of multiple stent placement in the past Sleep disorder breathing and sleep apnea Obesity Plan: Broad-spectrum antibiotics Gentle rehydration Bronchodilators IV steroids Continue anticoagulation Continue home medications Repeat chest x-ray tomorrow Further recommendations pending plan of care as per clinical response of the patient Time with Patient: Greater than 30
[2018-08-30 11:49] LABS: ALT 30 U/L (21-72); AST 16 U/L (17-59); Albumin 3.2 g/dL (3.5-5.0); Alkaline Phosphatase 46 U/L (38-126); Anion Gap 6 mmol/L; Blood Urea Nitrogen 27 mg/dL (9-20); Calcium 8.9 mg/dL (8.4-10.2); Carbon Dioxide 24 mmol/L (22-30); Chloride 102 mmol/L (98-107); Glucose 267 mg/dL (74-99); Potassium 4.1 mmol/L (3.5-5.1); Sodium 132 mmol/L (137-145); Total Bilirubin 0.6 mg/dL (0.2-1.3); Total Protein 5.9 g/dL (6.3-8.2)
[2018-08-30] MEDS: ISOSORBIDE MONONITRATE ER 60 MG TAB.ER.24H PO SCH (11:58)
[2018-08-30] MEDS: MULTIVITAMINS, THERA 1 EACH TAB PO SCH (11:58)
--- NOTE | 2018-08-30 12:11 | P.PN ---
Subjective Progress Note Date: 08/30/18 This is a pleasant 78-year-old male past medical history significant for hypertension, dyslipidemia, stable coronary artery disease, COPD, diabetes mellitus, seizure disorder, asthma and paroxysmal atrial fibrillation on long- term anticoagulation diagnosed June 2018. He follows in the office with Dr. Arriaga. We have been asked to see him in consultation secondary to atrial fibrillation with rapid ventricular response. He presented to the hospital with symptoms of dizziness and feeling lightheaded. The patient continues to be in atrial fibrillation this morning, his heart rate is in the 80s, blood pressure 112/60, 93% on 2 L of oxygen. White blood cell count 20.9, hemoglobin 15.3, platelet count 2:15. Sodium 132, potassium 4.1, BUN 27 and creatinine 0.7. Objective - Vital Signs Vital signs: Vital Signs Temp 97.4 F L 08/30/18 11:21 Pulse 84 08/30/18 11:50 Resp 20 08/30/18 11:21 BP 112/66 08/30/18 11:21 Pulse Ox 93 L 08/30/18 11:21 Intake & Output 08/29/18 08/30/18 08/30/18 18:59 06:59 18:59 Intake Total 540 238.333 290 Output Total 2350 600 700 Balance -1810 -361.667 -410 Weight 98.5 kg 87.2 kg 87.2 kg Intake: IV 90 Invasive Line 1 90 Intake, IV Titration 60 148.333 50 Amount Diltiazem 50 mg In Sodium 60 148.333 50 Chloride 0.9% 40 ml @ 15 MG/HR 15 mls/hr IV . Q3H20M [facility] Rx#:[id number] Oral 480 240 Output: Urine 2350 600 700 Other: Voiding Method Urinal Urinal # Voids 1 1 - Exam Blood pressure 135/71 heart rate 116 afebrile maintaining oxygen saturation on nasal cannula GENERAL: This is a 78-year-old male in no apparent distress at the time of my examination. HEENT: Head is atraumatic, normocephalic. Pupils are equal, round. Sclerae anicteric. Conjunctivae are clear. Mucous membranes of the mouth are moist. Neck is supple. There is no jugular venous distention. No carotid bruit is heard. LUNGS: Clear to auscultation no wheezes, rales or rhonchi. No chest wall tenderness is noted on palpation or with deep breathing. HEART: Irregular rate and rhythm without murmurs, rubs or gallops. S1 and S2 heard. ABDOMEN: Soft, nontender. Bowel sounds are heard. No organomegaly noted. EXTREMITIES: No evidence of peripheral edema and no calf tenderness noted. VASCULAR: Radial and dorsalis pedis pulses palpated, no evidence of clubbing. NEUROLOGIC: Patient is awake, alert and oriented x3. - Labs CBC & Chem 7: 08/30/18 11:09 08/30/18 11:09 Labs: Abnormal Lab Results - Last 24 Hours (Table) 08/29/18 08/29/18 08/29/18 Range/Units 11:25 17:03 20:58 WBC (3.8-10.6) k/uL Neutrophils # (1.3-7.7) k/uL Lymphocytes # (1.0-4.8) k/uL Sodium (137-145) mmol/L BUN (9-20) mg/dL Glucose (74-99) mg/dL POC Glucose (mg/dL) 219 H 367 H 317 H (75-99) mg/dL AST (17-59) U/L Total Protein (6.3-8.2) g/dL Albumin (3.5-5.0) g/dL 08/30/18 08/30/18 08/30/18 Range/Units 06:29 11:09 11:09 WBC 20.9 H (3.8-10.6) k/uL Neutrophils # 19.2 H (1.3-7.7) k/uL Lymphocytes # 0.7 L (1.0-4.8) k/uL Sodium 132 L (137-145) mmol/L BUN 27 H (9-20) mg/dL Glucose 267 H (74-99) mg/dL POC Glucose (mg/dL) 262 H (75-99) mg/dL AST 16 L (17-59) U/L Total Protein 5.9 L (6.3-8.2) g/dL Albumin 3.2 L (3.5-5.0) g/dL 08/30/18 Range/Units 11:17 WBC (3.8-10.6) k/uL Neutrophils # (1.3-7.7) k/uL Lymphocytes # (1.0-4.8) k/uL Sodium (137-145) mmol/L BUN (9-20) mg/dL Glucose (74-99) mg/dL POC Glucose (mg/dL) 239 H (75-99) mg/dL AST (17-59) U/L Total Protein (6.3-8.2) g/dL Albumin (3.5-5.0) g/dL Assessment and Plan Plan: Assessment and plan #1 Paroxysmal atrial fibrillation with rapid ventricular response on [facility] anticoagulation #2 Acute tracheobronchitis #3 History of coronary artery disease with mild in-stent restenosis #4 Hypertension #5 COPD Plan We will continue Eliquis 2-1/2 mg one tablet by mouth twice a day, Plavix 75 mg daily, lisinopril 2-1/2 mg daily, metoprolol 100 mg daily. Review echocardiogram with Doppler study. DNP note has been reviewed, I agree with a documented findings and plan of care. Patient was seen and examined.
--- NOTE | 2018-08-30 13:26 | P.PN ---
Subjective Progress Note Date: 08/30/18 Sid Diaz is an 78-year-old male who presented to [facility] emergency room with a chief complaint of worsening shortness of breath he was evaluated in emergency room and had evidence of atrial fibrillation with rapid ventricular response he also had evidence of acute bronchitis, COPD exacerbation , he was hypotensive in the emergency room he was given IV fluid boluses, he was started on IV Cardizem drip, he was started on Levaquin for antibiotic he was also started on IV Solu-Medrol and inhaled bronchodilators he was admitted to telemetry floor for further evaluation and treatment cardiology consultation and pulmonary consultation were requested. Patient was recently admitted to [facility] with similar complaints he received antibiotics and IV steroids and was discharged home on , patient took oral antibiotic and oral steroids at home and was doing better however in the last 2-3 days his condition started to worsen. On 08/29/2018 patient was seen and examined on the telemetry floor he is alert and oriented 3 in no apparent distress he is still complaining of shortness of breath and cough otherwise he denies any complaints there is no fever or chills no headache or dizziness no chest pain no nausea or vomiting no abdominal pain and no urinary symptoms. 08/30/2018 patient sitting up in bed comfortably. Still having some wheezing and shortness of breath. Remains in atrial fibrillation with episodes of tachycardia requiring Cardizem drip. Patient denies any chest pain. Denies any nausea or vomiting. Reports having bowel movements. Denies any difficulty urinating. Patient has been having hyperglycemia secondary to steroids. Has required extra insulin. Last blood sugar was 239. Objective - Vital Signs Vital signs: Vital Signs Temp 97.4 F L 08/30/18 11:21 Pulse 84 08/30/18 11:50 Resp 20 08/30/18 11:21 BP 112/66 08/30/18 11:21 Pulse Ox 93 L 08/30/18 11:21 Intake & Output 08/29/18 08/30/18 08/30/18 18:59 06:59 18:59 Intake Total 540 238.333 290 Output Total 2350 600 700 Balance -1810 -361.667 -410 Weight 98.5 kg 87.2 kg 87.2 kg Intake: IV 90 Invasive Line 1 90 Intake, IV Titration 60 148.333 50 Amount Diltiazem 50 mg In Sodium 60 148.333 50 Chloride 0.9% 40 ml @ 15 MG/HR 15 mls/hr IV . Q3H20M [facility] Rx#:[id number] Oral 480 240 Output: Urine 2350 600 700 Other: Voiding Method Urinal Urinal # Voids 1 1 - Exam Head normocephalic Neck supple Lungs wheezing bilaterally with coarse breath sounds Heart irregular. A. fib on monitor Abdomen is soft nontender nondistended positive bowel sounds no hepatosplenomegaly Extremities no edema Neuro alert and orientated to 3 - Labs CBC & Chem 7: 08/30/18 11:09 08/30/18 11:09 Labs: Abnormal Lab Results - Last 24 Hours (Table) 08/29/18 08/29/18 08/29/18 Range/Units 11:25 17:03 20:58 WBC (3.8-10.6) k/uL Neutrophils # (1.3-7.7) k/uL Lymphocytes # (1.0-4.8) k/uL Sodium (137-145) mmol/L BUN (9-20) mg/dL Glucose (74-99) mg/dL POC Glucose (mg/dL) 219 H 367 H 317 H (75-99) mg/dL AST (17-59) U/L Total Protein (6.3-8.2) g/dL Albumin (3.5-5.0) g/dL 08/30/18 08/30/18 08/30/18 Range/Units 06:29 11:09 11:09 WBC 20.9 H (3.8-10.6) k/uL Neutrophils # 19.2 H (1.3-7.7) k/uL Lymphocytes # 0.7 L (1.0-4.8) k/uL Sodium 132 L (137-145) mmol/L BUN 27 H (9-20) mg/dL Glucose 267 H (74-99) mg/dL POC Glucose (mg/dL) 262 H (75-99) mg/dL AST 16 L (17-59) U/L Total Protein 5.9 L (6.3-8.2) g/dL Albumin 3.2 L (3.5-5.0) g/dL 08/30/18 Range/Units 11:17 WBC (3.8-10.6) k/uL Neutrophils # (1.3-7.7) k/uL Lymphocytes # (1.0-4.8) k/uL Sodium (137-145) mmol/L BUN (9-20) mg/dL Glucose (74-99) mg/dL POC Glucose (mg/dL) 239 H (75-99) mg/dL AST (17-59) U/L Total Protein (6.3-8.2) g/dL Albumin (3.5-5.0) g/dL Assessment and Plan Assessment: #1 acute purulent bronchitis chest x-ray done in the emergency room does not reveal any evidence of pneumonia, he was started on oral Levaquin 500 mg daily, will obtain sputum culture #2 acute exacerbation of chronic obstructive pulmonary disease patient was started on IV Solu-Medrol 60 mg every 6 hours he was also started on inhaled bronchodilators, pulmonary following #3 atrial fibrillation with rapid ventricular response patient was started on IV Cardizem drip he is also maintained on Eliquis for stroke prevention cardiology following #4 underlying history of coronary artery disease with previous stent placement, no chest pain at this time #5 underlying history of prostate cancer. #6 underlying history of hyperlipidemia #7 acute on chronic hypoxic respiratory failure requiring home oxygen use #8 leukocytosis secondary to steroids #9 hyperglycemia secondary to steroids. Continue sliding scale coverage #10 hyponatremia: Possibly related to dehydration. Patient did get a dose of IV Lasix in the ER. Repeat labs in AM For GI prophylaxis patient is maintained on Protonix for DVT prophylaxis patient is maintained on Eliquis
[2018-08-30] MEDS ORDERED: DEXTROSE 5% IN WATER 100 ML with AMIODARONE 150 MG IV ONE (14:00)
[2018-08-30] MEDS: AMIODARONE 450 MG in DEXTROSE 5% IN WATER 250 ML IV SCH ×4 (14:41→21:51)
[2018-08-30 16:26] LABS: Glucose,Whole Blood 312 mg/dL (75-99)
[2018-08-30] MEDS: LISINOPRIL 2.5 MG TAB PO SCH (17:06)
--- NOTE | 2018-08-30 19:47 | ECHOF ---
Referral Reason:afib since june MEASUREMENTS -------- HEIGHT: 167.6 cm WEIGHT: 98.4 kg BP: 106/54 IVSd: 1.0 cm (0.6 - 1.1) LVIDd: 3.7 cm (3.9 - 5.3) LVPWd: 0.9 cm (0.6 - 1.1) IVSs: 1.3 cm LVIDs: 1.1 cm LVPWs: 1.0 cm LAESV Index (A-L): 36.41 ml/m Ao Diam: 3.6 cm (2.0 - 3.7) AV Cusp: 1.9 cm (1.5 - 2.6) LA Diam: 4.0 cm (2.7 - 3.8) AR PHT: 845 ms RAP: 5.00 mmHg RVSP: 9.86 mmHg FINDINGS -------- Atrial fibrillation. This was a technically good study. The left ventricular size is normal. Left ventricular wall thickness is normal. Overall left vent ricular systolic function is normal with, an EF between 60 - 65 %. The right ventricle is normal in size and function. LA is moderately dilated 34-39 ml/m2 The right atrium is normal in size. There is mild aortic regurgitation. The mitral valve leaflets are mildly thickened. Mild mitral annular calcification present. Mild m itral regurgitation is present. Mild tricuspid regurgitation present. The right ventricular systolic pressure, as measured by Doppl er, is 9.86mmHg. Pulmonic valve appears structurally normal. The aortic root size is normal. Normal inferior vena cava with normal inspiratory collapse consistent with estimated right atrial pre ssure of 5 mmHg. The pericardium is normal. CONCLUSIONS -------- 1. Atrial fibrillation. 2. This was a technically good study. 3. The left ventricular size is normal. 4. Left ventricular wall thickness is normal. 5. Overall left ventricular systolic function is normal with, an EF between 60 - 65 %. 6. The right ventricle is normal in size and function. 7. LA is moderately dilated 34-39 ml/m2 8. The right atrium is normal in size. 9. There is mild aortic regurgitation. 10. The mitral valve leaflets are mildly thickened. 11. Mild mitral annular calcification present. 12. Mild mitral regurgitation is present. 13. Mild tricuspid regurgitation present. 14. The right ventricular systolic pressure, as measured by Doppler, is 9.86mmHg. 15. Pulmonic valve appears structurally normal. 16. The aortic root size is normal. 17. Normal inferior vena cava with normal inspiratory collapse consistent with estimated right atrial pressure of 5 mmHg. 18. The pericardium is normal. GROUP CONTRACT ANALYST: Macey Bertrand RDCS
[2018-08-30] MEDS: ATORVASTATIN 10 MG TAB PO SCH (19:59)
[2018-08-30] MEDS: MONTELUKAST 10 MG TAB PO SCH (19:59)
[2018-08-30 20:56] LABS: Glucose,Whole Blood 272 mg/dL (75-99)
[2018-08-31] MEDS: IPRATROPIUM-ALBUTEROL 3 ML NEB INHALATION SCH ×6 (04:31→23:38)
[2018-08-31 06:18] LABS: Glucose,Whole Blood 233 mg/dL (75-99)
[2018-08-31] MEDS: PANTOPRAZOLE 40 MG TABLET PO SCH (06:19)
[2018-08-31] MEDS: methylPREDNISolone SOD SUCCI 125 MG/2 ML VIAL IV SCH ×2 (06:19→12:14)
[2018-08-31] MEDS: INSULIN ASPART 100 UNIT/ML 1 ML 10 ML VIAL SQ SCH ×4 (06:22→20:59)
[2018-08-31 06:47] LABS: Basophils % (A) 0 %; Eosinophils % (A) 0 %; HCT 44.1 % (39.0-53.0); HGB 14.1 gm/dL (13.0-17.5); Lymphocytes # (A) 0.6 k/uL (1.0-4.8); Lymphocytes % (A) 4 %; MCH 28.3 pg (25.0-35.0); MCHC 32.1 g/dL (31.0-37.0); MCV 88.1 fL (80.0-100.0); Mean Platelet Volume 6.2; Monocytes # (A) 0.6 k/uL (0-1.0); Monocytes % (A) 4 %; Neutrophils # (A) 14.5 k/uL (1.3-7.7); Neutrophils % (A) 92 %; Platelet Count 211 k/uL (150-450); RDW 13.9 % (11.5-15.5); WBC 15.7 k/uL (3.8-10.6)
[2018-08-31] MEDS: SYMBICORT 160-4.5 MCG INHALER INHALATION SCH ×2 (07:03→19:33)
[2018-08-31 07:06] LABS: ALT 32 U/L (21-72); AST 15 U/L (17-59); Alkaline Phosphatase 45 U/L (38-126); Anion Gap 7 mmol/L; Blood Urea Nitrogen 21 mg/dL (9-20); Calcium 8.6 mg/dL (8.4-10.2); Carbon Dioxide 23 mmol/L (22-30); Chloride 104 mmol/L (98-107); Glucose 258 mg/dL (74-99); Potassium 4.2 mmol/L (3.5-5.1); Sodium 134 mmol/L (137-145); Total Bilirubin 0.8 mg/dL (0.2-1.3); Total Protein 5.6 g/dL (6.3-8.2)
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
[2018-08-31] MEDS: APIXABAN 2.5 MG TABLET PO SCH ×2 (08:46→19:35)
[2018-08-31] MEDS: CLOPIDOGREL 75 MG TAB PO SCH (08:46)
[2018-08-31] MEDS: METOPROLOL SUCCINATE (ER) 100 MG TAB.ER.24H PO SCH (08:46)
[2018-08-31] MEDS: levETIRAcetam 500 MG TAB PO SCH ×2 (08:46→19:35)
[2018-08-31] MEDS: POTASSIUM CHLORIDE ER 20 MEQ TAB.ER PO SCH (08:46)
[2018-08-31] MEDS: guaiFENesin 600 MG TABLET.ER PO SCH ×2 (08:46→19:35)
[2018-08-31] MEDS: LEVOFLOXACIN 500 MG TAB PO SCH (08:49)
[2018-08-31 11:38] LABS: Glucose,Whole Blood 275 mg/dL (75-99)
[2018-08-31] MEDS ORDERED: INSULIN ASPART 100 UNIT/ML 1 ML 10 ML VIAL SQ ONE (11:47)
--- NOTE | 2018-08-31 11:48 | P.PN ---
Subjective Progress Note Date: 08/31/18 This is a pleasant 78-year-old male past medical history significant for hypertension, dyslipidemia, stable coronary artery disease, COPD, diabetes mellitus, seizure disorder, asthma and paroxysmal atrial fibrillation on long- term anticoagulation diagnosed June 2018. He follows in the office with Dr. Arriaga. We have been asked to see him in consultation secondary to atrial fibrillation with rapid ventricular response. He presented to the hospital with symptoms of dizziness and feeling lightheaded. The patient continues to be in atrial fibrillation this morning, his heart rate is in the 80s, blood pressure 112/60, 93% on 2 L of oxygen. White blood cell count 20.9, hemoglobin 15.3, platelet count 2:15. Sodium 132, potassium 4.1, BUN 27 and creatinine 0.7. 08/31/2018 Patient was seen and examined this morning, denies any chest discomfort or palpitations, breathing is stable. He does state that when he sits up quickly he still gets symptoms of dizziness, we will have the nurse check orthostatics on him. White blood cell count 15.7, hemoglobin 14.1, platelet count 211. Sodium 134, potassium 4.2, BUN 21, creatinine 0.6. Blood pressure this morning 110/50, heart rate in the 120 range. The patient is currently on IV amiodarone drip, once this is finished we will change him over to oral amiodarone. He is also on 100 mg of Toprol-XL daily. Objective - Vital Signs Vital signs: Vital Signs Temp 97.5 F L 08/31/18 11:03 Pulse 112 H 08/31/18 11:09 Resp 16 08/31/18 11:03 BP 117/63 08/31/18 11:03 Pulse Ox 93 L 08/31/18 11:03 Intake & Output 08/30/18 08/31/18 08/31/18 18:59 06:59 18:59 Intake Total 920 235.089 240 Output Total 1300 500 600 Balance -380 -264.911 -360 Weight 87.2 kg 91 kg Intake: IV 100 Dextrose 5% in Water 100 100 ml @ 618 mls/hr IV .Q10M ONE with Amiodarone 150 mg Rx#:[id number] Intake, IV Titration 100 235.089 Amount Amiodarone 450 mg In 235.089 Dextrose 5% in Water 250 ml @ 1 MG/MIN 34.53 mls/ hr IV .Q7H31M [facility] Rx#: [id number] Diltiazem 50 mg In Sodium 100 Chloride 0.9% 40 ml @ 15 MG/HR 15 mls/hr IV . Q3H20M [facility] Rx#:[id number] Oral 720 240 Output: Urine 1300 500 600 Other: Voiding Method Urinal Urinal Urinal # Voids 2 - Exam Blood pressure 135/71 heart rate 116 afebrile maintaining oxygen saturation on nasal cannula GENERAL: This is a 78-year-old male in no apparent distress at the time of my examination. HEENT: Head is atraumatic, normocephalic. Pupils are equal, round. Sclerae anicteric. Conjunctivae are clear. Mucous membranes of the mouth are moist. Neck is supple. There is no jugular venous distention. No carotid bruit is heard. LUNGS: Clear to auscultation no wheezes, rales or rhonchi. No chest wall tenderness is noted on palpation or with deep breathing. HEART: Irregular rate and rhythm without murmurs, rubs or gallops. S1 and S2 heard. ABDOMEN: Soft, nontender. Bowel sounds are heard. No organomegaly noted. EXTREMITIES: No evidence of peripheral edema and no calf tenderness noted. VASCULAR: Radial and dorsalis pedis pulses palpated, no evidence of clubbing. NEUROLOGIC: Patient is awake, alert and oriented x3. - Labs CBC & Chem 7: 08/31/18 05:38 08/31/18 05:38 Labs: Abnormal Lab Results - Last 24 Hours (Table) 08/30/18 08/30/18 08/30/18 Range/Units 11:09 16:16 20:55 WBC (3.8-10.6) k/uL Neutrophils # (1.3-7.7) k/uL Lymphocytes # (1.0-4.8) k/uL Sodium 132 L (137-145) mmol/L BUN 27 H (9-20) mg/dL Glucose 267 H (74-99) mg/dL POC Glucose (mg/dL) 312 H 272 H (75-99) mg/dL AST 16 L (17-59) U/L Total Protein 5.9 L (6.3-8.2) g/dL Albumin 3.2 L (3.5-5.0) g/dL 08/31/18 08/31/18 08/31/18 Range/Units 05:38 05:38 06:17 WBC 15.7 H (3.8-10.6) k/uL Neutrophils # 14.5 H (1.3-7.7) k/uL Lymphocytes # 0.6 L (1.0-4.8) k/uL Sodium 134 L (137-145) mmol/L BUN 21 H (9-20) mg/dL Glucose 258 H (74-99) mg/dL POC Glucose (mg/dL) 233 H (75-99) mg/dL AST 15 L (17-59) U/L Total Protein 5.6 L (6.3-8.2) g/dL Albumin 3.0 L (3.5-5.0) g/dL 08/31/18 Range/Units 11:34 WBC (3.8-10.6) k/uL Neutrophils # (1.3-7.7) k/uL Lymphocytes # (1.0-4.8) k/uL Sodium (137-145) mmol/L BUN (9-20) mg/dL Glucose (74-99) mg/dL POC Glucose (mg/dL) 275 H (75-99) mg/dL AST (17-59) U/L Total Protein (6.3-8.2) g/dL Albumin (3.5-5.0) g/dL Assessment and Plan Plan: Assessment and plan #1 Paroxysmal atrial fibrillation with rapid ventricular response on usp anticoagulation #2 Acute tracheobronchitis #3 History of coronary artery disease with mild in-stent restenosis #4 Hypertension #5 COPD Plan We will continue Eliquis 2-1/2 mg one tablet by mouth twice a day, Plavix 75 mg daily, lisinopril 2-1/2 mg daily, metoprolol 100 mg daily. Once the IV amiodarone is infused we will change patient over to amiodarone 400 mg by mouth twice a day. DNP note has been reviewed, I agree with a documented findings and plan of care. Patient was seen and examined.
[2018-08-31] MEDS: MULTIVITAMINS, THERA 1 EACH TAB PO SCH (12:14)
[2018-08-31] MEDS: ISOSORBIDE MONONITRATE ER 60 MG TAB.ER.24H PO SCH ×2 (12:16→17:37)
--- NOTE | 2018-08-31 12:59 | P.PN ---
Subjective Progress Note Date: 08/31/18 Sid Diaz is an 78-year-old male who presented to [facility] emergency room with a chief complaint of worsening shortness of breath he was evaluated in emergency room and had evidence of atrial fibrillation with rapid ventricular response he also had evidence of acute bronchitis, COPD exacerbation , he was hypotensive in the emergency room he was given IV fluid boluses, he was started on IV Cardizem drip, he was started on Levaquin for antibiotic he was also started on IV Solu-Medrol and inhaled bronchodilators he was admitted to telemetry floor for further evaluation and treatment cardiology consultation and pulmonary consultation were requested. Patient was recently admitted to [facility] with similar complaints he received antibiotics and IV steroids and was discharged home on , patient took oral antibiotic and oral steroids at home and was doing better however in the last 2-3 days his condition started to worsen. On 08/29/2018 patient was seen and examined on the telemetry floor he is alert and oriented 3 in no apparent distress he is still complaining of shortness of breath and cough otherwise he denies any complaints there is no fever or chills no headache or dizziness no chest pain no nausea or vomiting no abdominal pain and no urinary symptoms. 08/30/2018 patient sitting up in bed comfortably. Still having some wheezing and shortness of breath. Remains in atrial fibrillation with episodes of tachycardia requiring Cardizem drip. Patient denies any chest pain. Denies any nausea or vomiting. Reports having bowel movements. Denies any difficulty urinating. Patient has been having hyperglycemia secondary to steroids. Has required extra insulin. Last blood sugar was 239. 08/31/2018 patient had atrial fibrillation with rapid ventricular response yesterday requiring to be placed on IV amiodarone. Cardiology is planning to switch over to oral amiodarone later today. Echo shows an EF of 60-65%. Patient is still having some wheezing and shortness of breath. White count has decreased from 20.9 pound 15.7. Chest x-ray showed no evidence of pneumonia. Sodium level has gone up from 132-134. Cardiology is checking orthostatic blood pressures every shift. Patient denies any chest pain and heart palpitations. Denies any nausea or vomiting. Reports having bowel movements. Denies any difficulty urinating Objective - Vital Signs Vital signs: Vital Signs Temp 97.5 F L 01/15/19 11:03 Pulse 112 H 08/31/18 11:09 Resp 16 08/31/18 11:03 BP 117/63 08/31/18 11:03 Pulse Ox 93 L 08/31/18 11:03 Intake & Output 08/30/18 08/31/18 08/31/18 18:59 06:59 18:59 Intake Total 920 235.089 462 Output Total 1300 500 600 Balance -380 -264.911 -138 Weight 87.2 kg 91 kg Intake: IV 100 Dextrose 5% in Water 100 100 ml @ 618 mls/hr IV .Q10M ONE with Amiodarone 150 mg Rx#:[id number] Intake, IV Titration 100 235.089 Amount Amiodarone 450 mg In 235.089 Dextrose 5% in Water 250 ml @ 1 MG/MIN 34.53 mls/ hr IV .Q7H31M [facility] Rx#: [id number] Diltiazem 50 mg In Sodium 100 Chloride 0.9% 40 ml @ 15 MG/HR 15 mls/hr IV . Q3H20M [facility] Rx#:[id number] Oral 720 462 Output: Urine 1300 500 600 Other: Voiding Method Urinal Urinal Urinal # Voids 2 - Exam Head normocephalic Neck supple Lungs wheezing bilaterally with coarse breath sounds Heart irregular. A. fib on monitor Abdomen is soft nontender nondistended positive bowel sounds no hepatosplenomegaly Extremities no edema Neuro alert and orientated to 3 - Labs CBC & Chem 7: 08/31/18 05:38 08/31/18 05:38 Labs: Abnormal Lab Results - Last 24 Hours (Table) 08/30/18 08/30/18 08/31/18 Range/Units 16:16 20:55 05:38 WBC 15.7 H (3.8-10.6) k/uL Neutrophils # 14.5 H (1.3-7.7) k/uL Lymphocytes # 0.6 L (1.0-4.8) k/uL Sodium (137-145) mmol/L BUN (9-20) mg/dL Glucose (74-99) mg/dL POC Glucose (mg/dL) 312 H 272 H (75-99) mg/dL AST (17-59) U/L Total Protein (6.3-8.2) g/dL Albumin (3.5-5.0) g/dL 08/31/18 08/31/18 08/31/18 Range/Units 05:38 06:17 11:34 WBC (3.8-10.6) k/uL Neutrophils # (1.3-7.7) k/uL Lymphocytes # (1.0-4.8) k/uL Sodium 134 L (137-145) mmol/L BUN 21 H (9-20) mg/dL Glucose 258 H (74-99) mg/dL POC Glucose (mg/dL) 233 H 275 H (75-99) mg/dL AST 15 L (17-59) U/L Total Protein 5.6 L (6.3-8.2) g/dL Albumin 3.0 L (3.5-5.0) g/dL Assessment and Plan Assessment: #1 acute purulent bronchitis : Continue Levaquin. check Sputum culture #2 acute exacerbation of chronic obstructive pulmonary disease patient was started on IV Solu-Medrol 60 mg every 6 hours he was also started on inhaled bronchodilators, pulmonary following #3 atrial fibrillation with rapid ventricular response: Patient currently on IV amiodarone. Cardiology is planning to switch to oral amiodarone later today. Continue Eliquis for anticoagulation #4 underlying history of coronary artery disease with previous stent placement, no chest pain at this time #5 underlying history of prostate cancer. #6 underlying history of hyperlipidemia #7 acute on chronic hypoxic respiratory failure requiring home oxygen use #8 leukocytosis secondary to steroids #9 hyperglycemia secondary to steroids. Continue sliding scale coverage #10 hyponatremia: Sodium has improved from 132-134. Patient did get a dose of IV Lasix in the ER. Continue to monitor For GI prophylaxis patient is maintained on Protonix for DVT prophylaxis patient is maintained on Eliquis I performed an examination of the patient and discussed their management with the physician Patient Access Registrar. I have reviewed the Physician Patient Access Registrar's notes and agree with the documented findings and plan of care
--- NOTE | 2018-08-31 13:50 | P.PN ---
Subjective Progress Note Date: 08/31/18 Principal diagnosis: Acute COPD exacerbation, tracheobronchitis, chronic persistent severe asthma, obstructive sleep apnea, congestive heart failure likely acute diastolic heart failure related to atrial fibrillation and rapid ventricular response, morbid obesity, coronary artery disease 08/31/2018, patient seen eval examined during the rounds clinically has been doing slightly better in terms of breathing but is still of ongoing cough congestion and shortness of breath and wheezing, severity has improved, patient continued to have the episodes of A. fib with rapid ventricular response, patient has been on IV amiodarone as per cardiovascular services, recent echo failed to reveal a worsening of ejection fraction remains stable 60-65%, labs are improved, white cell count continue to improve as well, we'll start tapering down the steroids continue antibiotics recent chest x-ray reviewed 08/30/2018, patient seen eval examined during the rounds clinically has been doing slightly better cough congestion shortness breath is improved but is still have ongoing respiratory symptoms heart rate remained stable, but is still have intermittent episodes of tachycardia, patient remains afebrile, white cell count have gone up likely related to high-dose IV steroids labs reviewed medications reviewed 78-year-old male with history of end-stage lung disease agrees severe COPD emphysema also history of chronic persistent ALLERGIC asthma, patient was brought in the emergency department by the EMS due to severe shortness of breath palpitation, patient symptoms started about 2 days prior to coming into the hospital associated with increased cough congestion patient does have the rapid atrial fibrillation arrival, he does have history of coronary artery disease with 4 stents to were pleased in this institute and 2 were presented history of [place], patient spontaneously converted back to sinus rhythm cardiovascular services has been evaluating this patient as well he still complaining of cough congestion shortness of breath, currently patient is being treated with his home medications, , IV Cardizem as been initiated which is being discontinued, patient is being treated with broad-spectrum antibiotics bronchodilators and steroid, chest x-ray failed to reveal any active infiltrate but however consistent with COPD Objective - Vital Signs Vital signs: Vital Signs Temp 97.5 F L 08/31/18 11:03 Pulse 112 H 08/31/18 11:09 Resp 16 08/31/18 11:03 BP 117/63 08/31/18 11:03 Pulse Ox 93 L 08/31/18 11:03 Intake & Output 08/30/18 08/31/1808/31/19 18:59 06:59 18:59 Intake Total 920 235.089 462 Output Total 1300 500 600 Balance -380 -264.911 -138 Weight 87.2 kg 91 kg Intake: IV 100 Dextrose 5% in Water 100 100 ml @ 618 mls/hr IV .Q10M ONE with Amiodarone 150 mg Rx#:[id number] Intake, IV Titration 100 235.089 Amount Amiodarone 450 mg In 235.089 Dextrose 5% in Water 250 ml @ 1 MG/MIN 34.53 mls/ hr IV .Q7H31M [facility]#: [id number] Diltiazem 50 mg In Sodium 100 Chloride 0.9% 40 ml @ 15 MG/HR 15 mls/hr IV . Q3H20M [facility] Rx#:[id number] Oral 720 462 Output: Urine 1300 500 600 Other: Voiding Method Urinal Urinal Urinal # Voids 2 - Exam Constitutional General appearance: average body habitus, cooperative, disheveled, mild distress , obese - EENT Eyes: EOMI, PERRLA, poor dentition, normal appearance Ears: bilateral: normal - Neck Carotids: bilateral: upstroke normal, bruit absent Thyroid: bilateral: normal size - Respiratory Respiratory: bilateral: diminished, rhonchi, wheezing, prolonged expiration, negative: CTA, dullness, rales, prolonged inspiration - Cardiovascular Rhythm: regular Heart sounds: normal: S1, S2 - Gastrointestinal General gastrointestinal: absent bowel sounds - Neurologic Neurologic: CNII-XII intact - Musculoskeletal Musculoskeletal: gait normal, generalized weakness, strength equal bilaterally - Psychiatric Psychiatric: A&O x's 3, appropriate affect, intact judgment & insight - Labs CBC & Chem 7: 08/31/18 05:38 08/31/18 05:38 Labs: Abnormal Lab Results - Last 24 Hours (Table) 08/30/18 08/30/18 08/31/18 Range/Units 16:16 20:55 05:38 WBC 15.7 H (3.8-10.6) k/uL Neutrophils # 14.5 H (1.3-7.7) k/uL Lymphocytes # 0.6 L (1.0-4.8) k/uL Sodium (137-145) mmol/L BUN (9-20) mg/dL Glucose (74-99) mg/dL POC Glucose (mg/dL) 312 H 272 H (75-99) mg/dL AST (17-59) U/L Total Protein (6.3-8.2) g/dL Albumin (3.5-5.0) g/dL 08/31/18 08/31/18 08/31/18 Range/Units 05:38 06:17 11:34 WBC (3.8-10.6) k/uL Neutrophils # (1.3-7.7) k/uL Lymphocytes # (1.0-4.8) k/uL Sodium 134 L (137-145) mmol/L BUN 21 H (9-20) mg/dL Glucose 258 H (74-99) mg/dL POC Glucose (mg/dL) 233 H 275 H (75-99) mg/dL AST 15 L (17-59) U/L Total Protein 5.6 L (6.3-8.2) g/dL Albumin 3.0 L (3.5-5.0) g/dL Assessment and Plan Assessment: Acute purulent tracheobronchitis Atrial fibrillation with rapid ventricular response Acute COPD exacerbation Hyperglycemia related to high-dose IV steroids Diabetes Chronic persistent severe asthma with component of ALLERGIC asthma Coronary artery disease with history of multiple stent placement in the past Sleep disorder breathing and sleep apnea Obesity Plan: Broad-spectrum antibiotics Gentle rehydration Bronchodilators IV steroids, would taper slowly Continue anticoagulation Continue home medications Repeat chest x-ray tomorrow Further recommendations pending plan of care as per clinical response of the patient Time with Patient: Greater than 30
[2018-08-31] MEDS: AMIODARONE 450 MG in DEXTROSE 5% IN WATER 250 ML IV SCH ×4 (15:24→15:25)
[2018-08-31] MEDS: AMIODARONE 200 MG TAB PO SCH ×2 (15:24→19:35)
[2018-08-31 16:17] LABS: Glucose,Whole Blood 171 mg/dL (75-99)
[2018-08-31] MEDS: LISINOPRIL 2.5 MG TAB PO SCH (17:21)
[2018-08-31] MEDS: ATORVASTATIN 10 MG TAB PO SCH (19:35)
[2018-08-31] MEDS: methylPREDNISolone SOD SUCCI 40 MG/ML 1 ML VIAL IV SCH (19:35)
[2018-08-31] MEDS: MONTELUKAST 10 MG TAB PO SCH (19:35)
[2018-08-31 20:52] LABS: Glucose,Whole Blood 201 mg/dL (75-99)
[2018-08-31] MEDS: INSULIN DETEMIR 100 UNIT/ML 10 ML VIAL SQ SCH (20:58)
[2018-09-01] MEDS: IPRATROPIUM-ALBUTEROL 3 ML NEB INHALATION SCH ×5 (03:26→19:51)
[2018-09-01 06:01] LABS: Glucose,Whole Blood 204 mg/dL (75-99)
[2018-09-01] MEDS: PANTOPRAZOLE 40 MG TABLET PO SCH (06:45)
[2018-09-01] MEDS: INSULIN ASPART 100 UNIT/ML 1 ML 10 ML VIAL SQ SCH ×4 (06:45→21:38)
[2018-09-01] MEDS: SYMBICORT 160-4.5 MCG INHALER INHALATION SCH ×2 (07:17→19:51)
[2018-09-01 07:19] LABS: Basophils % (A) 0 %; Eosinophils % (A) 0 %; HCT 43.7 % (39.0-53.0); HGB 14.2 gm/dL (13.0-17.5); Lymphocytes # (A) 0.6 k/uL (1.0-4.8); Lymphocytes % (A) 5 %; MCH 28.8 pg (25.0-35.0); MCHC 32.4 g/dL (31.0-37.0); MCV 88.8 fL (80.0-100.0); Mean Platelet Volume 6.1; Monocytes # (A) 0.6 k/uL (0-1.0); Monocytes % (A) 5 %; Neutrophils # (A) 11.7 k/uL (1.3-7.7); Neutrophils % (A) 90 %; Platelet Count 193 k/uL (150-450); RBC 4.93 m/uL (4.30-5.90); RDW 13.7 % (11.5-15.5)
[2018-09-01 07:35] LABS: ALT 28 U/L (21-72); AST 16 U/L (17-59); Alkaline Phosphatase 44 U/L (38-126); Anion Gap 6 mmol/L; Blood Urea Nitrogen 22 mg/dL (9-20); Calcium 8.6 mg/dL (8.4-10.2); Carbon Dioxide 28 mmol/L (22-30); Chloride 101 mmol/L (98-107); Glucose 242 mg/dL (74-99); Potassium 4.9 mmol/L (3.5-5.1); Sodium 135 mmol/L (137-145); Total Bilirubin 0.7 mg/dL (0.2-1.3); Total Protein 5.4 g/dL (6.3-8.2)
[2018-09-01] MEDS: ISOSORBIDE MONONITRATE ER 60 MG TAB.ER.24H PO SCH (07:50)
[2018-09-01] MEDS: METOPROLOL SUCCINATE (ER) 100 MG TAB.ER.24H PO SCH (07:50)
[2018-09-01] MEDS: levETIRAcetam 500 MG TAB PO SCH ×2 (07:50→21:33)
[2018-09-01] MEDS: APIXABAN 2.5 MG TABLET PO SCH ×2 (07:50→21:33)
[2018-09-01] MEDS: LEVOFLOXACIN 500 MG TAB PO SCH (07:50)
[2018-09-01] MEDS: methylPREDNISolone SOD SUCCI 40 MG/ML 1 ML VIAL IV SCH ×2 (07:50→21:38)
[2018-09-01] MEDS: CLOPIDOGREL 75 MG TAB PO SCH (07:50)
[2018-09-01] MEDS: POTASSIUM CHLORIDE ER 20 MEQ TAB.ER PO SCH (07:51)
[2018-09-01] MEDS: guaiFENesin 600 MG TABLET.ER PO SCH ×2 (07:51→21:33)
[2018-09-01] MEDS: MULTIVITAMINS, THERA 1 EACH TAB PO SCH (07:51)
[2018-09-01] MEDS: AMIODARONE 200 MG TAB PO SCH ×2 (07:51→21:33)
--- NOTE | 2018-09-01 11:21 | P.PN ---
Subjective Progress Note Date: 09/01/18 This is a pleasant 78-year-old male past medical history significant for hypertension, dyslipidemia, stable coronary artery disease, COPD, diabetes mellitus, seizure disorder, asthma and paroxysmal atrial fibrillation on long- term anticoagulation diagnosed June 2018. He follows in the office with Dr. Arriaga. We have been asked to see him in consultation secondary to atrial fibrillation with rapid ventricular response. He presented to the hospital with symptoms of dizziness and feeling lightheaded. The patient continues to be in atrial fibrillation this morning, his heart rate is in the 80s, blood pressure 112/60, 93% on 2 L of oxygen. White blood cell count 20.9, hemoglobin 15.3, platelet count 2:15. Sodium 132, potassium 4.1, BUN 27 and creatinine 0.7. 08/31/2018 Patient was seen and examined this morning, denies any chest discomfort or palpitations, breathing is stable. He does state that when he sits up quickly he still gets symptoms of dizziness, we will have the nurse check orthostatics on him. White blood cell count 15.7, hemoglobin 14.1, platelet count 211. Sodium 134, potassium 4.2, BUN 21, creatinine 0.6. Blood pressure this morning 110/50, heart rate in the 120 range. The patient is currently on IV amiodarone drip, once this is finished we will change him over to oral amiodarone. He is also on 100 mg of Toprol-XL daily. 09/01/2018 Patient was seen and examined this morning, overall he states he feels well today. Denies any dizziness or lightheadedness. Pressure this morning 107/78, heart rate continues to be in the 120 range. 93% on room air. Orthostatics were obtained yesterday which did come back to be mildly positive. Patient was initiated on midodrine. White blood cell count 13.0, hemoglobin 14.2, platelet count 193. Sodium 135, potassium 4.9, BUN 22 and creatinine 0.7. Objective - Vital Signs Vital signs: Vital Signs Temp 97.6 F 09/01/18 07:49 Pulse 132 H 09/01/18 07:49 Resp 18 09/01/18 08:00 BP 107/78 09/01/18 07:49 Pulse Ox 93 L 09/01/18 07:49 Intake & Output 0109/01/18 09/01/18 18:59 06:59 18:59 Intake Total 1211 240 Output Total 1100 300 Balance 111 -300 240 Weight 88 kg Intake: IV 250 Amiodarone 450 mg In 250 Dextrose 5% in Water 250 ml @ 1 MG/MIN 34.53 mls/ hr IV .Q7H31M [facility] Rx#: [id number] Intake, IV Titration 259 Amount Amiodarone 450 mg In 259 Dextrose 5% in Water 250 ml @ 1 MG/MIN 34.53 mls/ hr IV .Q7H31M [facility] Rx#: [id number] Oral 702 240 Output: Urine 1100 300 Other: Voiding Method Urinal Urinal # Voids 1 - Exam Blood pressure 135/71 heart rate 116 afebrile maintaining oxygen saturation on nasal cannula GENERAL: This is a 78-year-old male in no apparent distress at the time of my examination. HEENT: Head is atraumatic, normocephalic. Pupils are equal, round. Sclerae anicteric. Conjunctivae are clear. Mucous membranes of the mouth are moist. Neck is supple. There is no jugular venous distention. No carotid bruit is heard. LUNGS: Clear to auscultation no wheezes, rales or rhonchi. No chest wall tenderness is noted on palpation or with deep breathing. HEART: Irregular rate and rhythm without murmurs, rubs or gallops. S1 and S2 heard. ABDOMEN: Soft, nontender. Bowel sounds are heard. No organomegaly noted. EXTREMITIES: No evidence of peripheral edema and no calf tenderness noted. VASCULAR: Radial and dorsalis pedis pulses palpated, no evidence of clubbing. NEUROLOGIC: Patient is awake, alert and oriented x3. - Labs CBC & Chem 7: 09/01/18 06:30 09/01/18 06:30 Labs: Abnormal Lab Results - Last 24 Hours (Table) 08/31/18 08/31/18 08/31/18 Range/Units 11:34 16:15 20:49 WBC (3.8-10.6) k/uL Neutrophils # (1.3-7.7) k/uL Lymphocytes # (1.0-4.8) k/uL Sodium (137-145) mmol/L BUN (9-20) mg/dL Glucose (74-99) mg/dL POC Glucose (mg/dL) 275 H 171 H 201 H (75-99) mg/dL AST (17-59) U/L Total Protein (6.3-8.2) g/dL Albumin (3.5-5.0) g/dL 09/01/18 09/01/18 09/01/18 Range/Units 05:59 06:30 06:30 WBC 13.0 H (3.8-10.6) k/uL Neutrophils # 11.7 H (1.3-7.7) k/uL Lymphocytes # 0.6 L (1.0-4.8) k/uL Sodium 135 L (137-145) mmol/L BUN 22 H (9-20) mg/dL Glucose 242 H (74-99) mg/dL POC Glucose (mg/dL) 204 H (75-99) mg/dL AST 16 L (17-59) U/L Total Protein 5.4 L (6.3-8.2) g/dL Albumin 3.0 L (3.5-5.0) g/dL Assessment and Plan Plan: Assessment and plan #1 Paroxysmal atrial fibrillation with rapid ventricular response 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 Adjust medications for more optimal heart rate control. DNP note has been reviewed, I agree with a documented findings and plan of care. Patient was seen and examined.
[2018-09-01] MEDS: DIGOXIN 250 MCG TAB PO SCH (12:22)
[2018-09-01] MEDS: MIDODRINE 5 MG TAB PO SCH ×2 (12:22→17:00)
[2018-09-01 12:34] LABS: Glucose,Whole Blood 225 mg/dL (75-99)
--- NOTE | 2018-09-01 15:12 | P.PN ---
Subjective Progress Note Date: 09/01/18 Sid Diaz is an 78-year-old male who presented to [facility] emergency room with a chief complaint of worsening shortness of breath he was evaluated in emergency room and had evidence of atrial fibrillation with rapid ventricular response he also had evidence of acute bronchitis, COPD exacerbation , he was hypotensive in the emergency room he was given IV fluid boluses, he was started on IV Cardizem drip, he was started on Levaquin for antibiotic he was also started on IV Solu-Medrol and inhaled bronchodilators he was admitted to telemetry floor for further evaluation and treatment cardiology consultation and pulmonary consultation were requested. Patient was recently admitted to [facility] with similar complaints he received antibiotics and IV steroids and was discharged home on , patient took oral antibiotic and oral steroids at home and was doing better however in the last 2-3 days his condition started to worsen. On 08/29/2018 patient was seen and examined on the telemetry floor he is alert and oriented 3 in no apparent distress he is still complaining of shortness of breath and cough otherwise he denies any complaints there is no fever or chills no headache or dizziness no chest pain no nausea or vomiting no abdominal pain and no urinary symptoms. 08/30/2018 patient sitting up in bed comfortably. Still having some wheezing and shortness of breath. Remains in atrial fibrillation with episodes of tachycardia requiring Cardizem drip. Patient denies any chest pain. Denies any nausea or vomiting. Reports having bowel movements. Denies any difficulty urinating. Patient has been having hyperglycemia secondary to steroids. Has required extra insulin. Last blood sugar was 239. 08/31/2018 patient had atrial fibrillation with rapid ventricular response yesterday requiring to be placed on IV amiodarone. Cardiology is planning to switch over to oral amiodarone later today. Echo shows an EF of 60-65%. Patient is still having some wheezing and shortness of breath. White count has decreased from 20.9 pound 15.7. Chest x-ray showed no evidence of pneumonia. Sodium level has gone up from 132-134. Cardiology is checking orthostatic blood pressures every shift. Patient denies any chest pain and heart palpitations. Denies any nausea or vomiting. Reports having bowel movements. Denies any difficulty urinating. On 09/01/2018 patient was seen and examined on the telemetry floor he is alert and oriented 3 in no apparent distress heart rate is better controlled today he is off amiodarone drip cardiology are planning for MAL tomorrow. Clinically patient is doing better there is no fever or chills no headache or dizziness no chest pain patient still has shortness of breath with activity he has occasional cough there is no nausea or vomiting no abdominal pain no diarrhea and no urinary symptoms Objective - Vital Signs Vital signs: Vital Signs Temp 97.4 F L 09/01/18 12:00 Pulse 86 09/01/18 12:00 Resp 18 09/01/18 12:00 BP 128/74 09/01/18 12:00 Pulse Ox 93 L 09/01/18 12:00 Intake & Output 08/31/18 09/01/18 09/01/18 18:59 06:59 18:59 Intake Total 1211 240 Output Total 1100 300 Balance 111 -300 240 Weight 88 kg Intake: IV 250 Amiodarone 450 mg In 250 Dextrose 5% in Water 250 ml @ 1 MG/MIN 34.53 mls/ hr IV .Q7H31M [facility] Rx#: [id number] Intake, IV Titration 259 Amount Amiodarone 450 mg In 259 Dextrose 5% in Water 250 ml @ 1 MG/MIN 34.53 mls/ hr IV .Q7H31M [facility] Rx#: [id number] Oral 702 240 Output: Urine 1100 300 Other: Voiding Method Urinal Urinal # Voids 1 - Exam In general patient is alert and oriented 3 in no apparent distress HEENT head normocephalic and atraumatic Neck is supple no JVD no goiter no lymphadenopathy Chest exam reveals coarse crackles in both lung villarreal with wheezing Cardiac exam reveals irregular heart sounds S1 and S2 with tachycardia no gallops no murmurs Abdomen is soft nontender no organomegaly with normal bowel sounds Extremity exam reveals no edema no cyanosis or clubbing Neurological examination reveals no gross focal deficit - Labs CBC & Chem 7: 09/01/18 06:30 09/01/18 06:30 Labs: Abnormal Lab Results - Last 24 Hours (Table) 08/31/18 08/31/18 09/01/18 Range/Units 16:15 20:49 05:59 WBC (3.8-10.6) k/uL Neutrophils # (1.3-7.7) k/uL Lymphocytes # (1.0-4.8) k/uL Sodium (137-145) mmol/L BUN (9-20) mg/dL Glucose (74-99) mg/dL POC Glucose (mg/dL) 171 H 201 H 204 H (75-99) mg/dL AST (17-59) U/L Total Protein (6.3-8.2) g/dL Albumin (3.5-5.0) g/dL 09/01/18 09/01/18 09/01/18 Range/Units 06:30 06:30 12:18 WBC 13.0 H (3.8-10.6) k/uL Neutrophils # 11.7 H (1.3-7.7) k/uL Lymphocytes # 0.6 L (1.0-4.8) k/uL Sodium 135 L (137-145) mmol/L BUN 22 H (9-20) mg/dL Glucose 242 H (74-99) mg/dL POC Glucose (mg/dL) 225 H (75-99) mg/dL AST 16 L (17-59) U/L Total Protein 5.4 L (6.3-8.2) g/dL Albumin 3.0 L (3.5-5.0) g/dL Assessment and Plan Plan: #1 acute purulent bronchitis chest x-ray done in the emergency room does not reveal any evidence of pneumonia, he was started on oral Levaquin 500 mg daily, will obtain sputum culture #2 acute exacerbation of chronic obstructive pulmonary disease patient was started on IV Solu-Medrol 60 mg every 6 hours he was also started on inhaled bronchodilators, 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 Currently patient is off IV amiodarone and is maintained on amiodarone 400 mg by mouth twice a day per cardiology. #4 underlying history of coronary artery disease with previous stent placement, no chest pain at this time #5 underlying history of prostate cancer. #6 underlying history of hyperlipidemia #7 acute on chronic hypoxic respiratory failure requiring home oxygen use For GI prophylaxis patient is maintained on Protonix for DVT prophylaxis patient is maintained on Eliquis. Cardiology are planning for MAL tomorrow Patient is improving gradually continue with current care.
[2018-09-01] MEDS: SODIUM CHLORIDE 0.9% 1,000 ML IV SCH (16:35)
[2018-09-01] MEDS: LISINOPRIL 2.5 MG TAB PO SCH (16:35)
[2018-09-01 17:03] LABS: Glucose,Whole Blood 192 mg/dL (75-99)
[2018-09-01] MEDS: MONTELUKAST 10 MG TAB PO SCH (21:33)
[2018-09-01] MEDS: ATORVASTATIN 10 MG TAB PO SCH (21:33)
[2018-09-01] MEDS: INSULIN DETEMIR 100 UNIT/ML 10 ML VIAL SQ SCH (21:36)
[2018-09-01 21:56] LABS: Glucose,Whole Blood 174 mg/dL (75-99)
[2018-09-02] MEDS: IPRATROPIUM-ALBUTEROL 3 ML NEB INHALATION SCH ×6 (00:11→19:59)
[2018-09-02 06:32] LABS: Glucose,Whole Blood 163 mg/dL (75-99)
[2018-09-02 06:37] LABS: Basophils % (A) 0 %; Eosinophils # (A) 0.1 k/uL (0-0.7); Eosinophils % (A) 1 %; HCT 46.6 % (39.0-53.0); HGB 14.7 gm/dL (13.0-17.5); Lymphocytes # (A) 1.3 k/uL (1.0-4.8); Lymphocytes % (A) 9 %; MCH 28.4 pg (25.0-35.0); MCHC 31.6 g/dL (31.0-37.0); MCV 89.8 fL (80.0-100.0); Monocytes # (A) 0.8 k/uL (0-1.0); Monocytes % (A) 5 %; Neutrophils # (A) 11.8 k/uL (1.3-7.7); Neutrophils % (A) 84 %; Platelet Count 175 k/uL (150-450); RBC 5.19 m/uL (4.30-5.90); WBC 14.1 k/uL (3.8-10.6)
[2018-09-02] MEDS: INSULIN ASPART 100 UNIT/ML 1 ML 10 ML VIAL SQ SCH ×4 (06:37→21:15)
[2018-09-02 06:50] LABS: ALT 34 U/L (21-72); AST 23 U/L (17-59); Alkaline Phosphatase 42 U/L (38-126); Anion Gap 6 mmol/L; Blood Urea Nitrogen 20 mg/dL (9-20); Calcium 8.3 mg/dL (8.4-10.2); Carbon Dioxide 28 mmol/L (22-30); Chloride 100 mmol/L (98-107); Glucose 168 mg/dL (74-99); Potassium 4.7 mmol/L (3.5-5.1); Sodium 134 mmol/L (137-145); Total Protein 5.7 g/dL (6.3-8.2)
[2018-09-02] MEDS: SYMBICORT 160-4.5 MCG INHALER INHALATION SCH ×2 (08:38→19:59)
--- NOTE | 2018-09-02 09:19 | P.PN ---
Subjective Progress Note Date: 09/02/18 Principal diagnosis: Acute COPD exacerbation, tracheobronchitis, chronic persistent severe asthma, obstructive sleep apnea, congestive heart failure likely acute diastolic heart failure related to atrial fibrillation and rapid ventricular response, morbid obesity, coronary artery disease 09/02/2018, patient seen eval examined during the rounds care plan discussed with cardiovascular services as well patient is scheduled for MAL and cardioversion as well from [facility] standpoint overall remains stable still have intermittent episodes of cough congestion and shortness of breath breathing treatment appears to be helping however patient does go into intermittent episodes of A. fib with rapid ventricular response 09/01/2018, patient seen eval reexamined during the rounds continue to have intermittent episodes of atrial fibrillation with rapid ventricular response patient has been having intermittent episodes of respiratory distress requiring breathing treatment he remains on antibiotics and steroids has been tapered down , patient is being followed by cardiovascular services 08/31/2018, patient seen eval examined during the rounds clinically has been doing slightly better in terms of breathing but is still of ongoing cough congestion and shortness of breath and wheezing, severity has improved, patient continued to have the episodes of A. fib with rapid ventricular response, patient has been on IV amiodarone as per cardiovascular services, recent echo failed to reveal a worsening of ejection fraction remains stable 60-65%, labs are improved, white cell count continue to improve as well, we'll start tapering down the steroids continue antibiotics recent chest x-ray reviewed 08/30/2018, patient seen eval examined during the rounds clinically has been doing slightly better cough congestion shortness breath is improved but is still have ongoing respiratory symptoms heart rate remained stable, but is still have intermittent episodes of tachycardia, patient remains afebrile, white cell count have gone up likely related to high-dose IV steroids labs reviewed medications reviewed 78-year-old male with history of end-stage lung disease agrees severe COPD emphysema also history of chronic persistent ALLERGIC asthma, patient was brought in the emergency department by the EMS due to severe shortness of breath palpitation, patient symptoms started about 2 days prior to coming into the hospital associated with increased cough congestion patient does have the rapid atrial fibrillation arrival, he does have history of coronary artery disease with 4 stents to were pleased in this institute and 2 were presented history of [place], patient spontaneously converted back to sinus rhythm cardiovascular services has been evaluating this patient as well he still complaining of cough congestion shortness of breath, currently patient is being treated with his home medications, , IV Cardizem as been initiated which is being discontinued, patient is being treated with broad-spectrum antibiotics bronchodilators and steroid, chest x-ray failed to reveal any active infiltrate but however consistent with COPD Objective - Vital Signs Vital signs: Vital Signs Temp 98.9 F 09/02/18 03:45 Pulse 124 H 09/02/18 03:45 Resp 21 09/02/18 03:45 BP 120/84 09/02/18 03:45 Pulse Ox 95 09/02/18 03:45 Intake & Output 09/01/18 09/02/18 09/02/18 18:59 06:59 18:59 Intake Total 240 0 Output Total 1200 Balance 240 -1200 0 Weight 92.5 kg Intake: Oral 240 0 Output: Urine 1200 Other: Voiding Method Urinal # Voids 0 - Exam Constitutional General appearance: average body habitus, cooperative, disheveled, mild distress , obese - EENT Eyes: EOMI, PERRLA, poor dentition, normal appearance Ears: bilateral: normal - Neck Carotids: bilateral: upstroke normal, bruit absent Thyroid: bilateral: normal size - Respiratory Respiratory: bilateral: diminished, rhonchi, wheezing, prolonged expiration, negative: CTA, dullness, rales, prolonged inspiration - Cardiovascular Rhythm: regular Heart sounds: normal: S1, S2 - Gastrointestinal General gastrointestinal: absent bowel sounds - Neurologic Neurologic: CNII-XII intact - Musculoskeletal Musculoskeletal: gait normal, generalized weakness, strength equal bilaterally - Psychiatric Psychiatric: A&O x's 3, appropriate affect, intact judgment & insight - Labs CBC & Chem 7: 09/02/18 06:12 09/02/18 06:12 Labs: Abnormal Lab Results - Last 24 Hours (Table) 09/01/18 09/01/18 09/01/18 Range/Units 12:18 16:56 21:36 WBC (3.8-10.6) k/uL Neutrophils # (1.3-7.7) k/uL Sodium (137-145) mmol/L Glucose (74-99) mg/dL POC Glucose (mg/dL) 225 H 192 H 174 H (75-99) mg/dL Calcium (8.4-10.2) mg/dL Total Protein (6.3-8.2) g/dL Albumin (3.5-5.0) g/dL 09/02/18 09/02/18 09/02/18 Range/Units 06:12 06:12 06:31 WBC 14.1 H (3.8-10.6) k/uL Neutrophils # 11.8 H (1.3-7.7) k/uL Sodium 134 L (137-145) mmol/L Glucose 168 H (74-99) mg/dL POC Glucose (mg/dL) 163 H (75-99) mg/dL Calcium 8.3 L (8.4-10.2) mg/dL Total Protein 5.7 L (6.3-8.2) g/dL Albumin 3.0 L (3.5-5.0) g/dL Assessment and Plan Assessment: Acute purulent tracheobronchitis Atrial fibrillation with rapid ventricular response Acute COPD exacerbation Hyperglycemia related to high-dose IV steroids Diabetes Chronic persistent severe asthma with component of ALLERGIC asthma Coronary artery disease with history of multiple stent placement in the past Sleep disorder breathing and sleep apnea Obesity Plan: MAL and cardioversion being planned for this morning by cardiovascular services patient is nothing by mouth Broad-spectrum antibiotics Gentle rehydration Bronchodilators IV steroids, would taper slowly, for now we'll keep on 40 mg every 12 Continue anticoagulation Continue home medications Repeat chest x-ray reviewed overall changes remains stable Further recommendations pending plan of care as per clinical response of the patient Time with Patient: Greater than 30
[2018-09-02] MEDS ORDERED: LIDOCAINE 1% INJ 10MG/ML (20 ML MDV) ONE (10:40)
[2018-09-02] MEDS ORDERED: PROPOFOL 10 MG/ML 20 ML VIAL IV ONE (10:40)
[2018-09-02] MEDS ORDERED: LACTATED RINGERS 1,000 ML IV ONE (11:45)
[2018-09-02] MEDS ORDERED: SODIUM CHLORIDE 0.9% 1,000 ML IV SCH (12:00)
[2018-09-02 12:08] LABS: Glucose,Whole Blood 171 mg/dL (75-99)
--- NOTE | 2018-09-02 12:14 | ECHOT ---
TRANSESOPHAGEAL ECHOCARDIOGRAM PROCEDURE: Transesophageal echocardiogram. INDICATION: Chronic atrial fibrillation, to rule out intracardiac thrombus prior to cardioversion. After obtaining informed consent, patient was anesthetized by the certified surgical first assistant. Patient was adequately anticoagulated with Eliquis. The patient underwent MAL using an Omni plane probe, tolerated the procedure well. FINDINGS: 1. There is no intracardiac thrombus within the left atrial appendage, left atrium, right atrium, right ventricle. 2. Mitral valve is anatomically normal. There is moderate central mitral regurgitation noted. 3. Aortic valve shows mild aortic regurgitation. 4. Tricuspid valve shows mild tricuspid regurgitation. 5. Interatrial septum, there is no evidence of [id number] shunt by color-flow Doppler or [id number] shunt by agitated saline contrast study. Left ventricle has normal size and systolic function. 6. There is mild atherosclerotic changes noted within the aorta. CONCLUSION: 1. No intracardiac thrombus. 2. Moderate mitral regurgitation. 3. Normal LV function. PLAN: Patient will undergo cardioversion. CARDIOVERSION NOTE: INDICATION: Chronic atrial fibrillation. After obtaining informed consent and making sure that there is no intracardiac thrombus and adequately anticoagulated with Eliquis. patient underwent cardioversion using 300 joules of synchronized current. I initially attempted cardioversion with 200 joules which was unsuccessful. He cardioverted with 300 joules. He remained in sinus rhythm. An EKG was performed. MMODL / IJN: [id number] /
[2018-09-02] MEDS: CLOPIDOGREL 75 MG TAB PO SCH (12:49)
[2018-09-02] MEDS: guaiFENesin 600 MG TABLET.ER PO SCH ×2 (12:49→21:15)
[2018-09-02] MEDS: APIXABAN 2.5 MG TABLET PO SCH ×2 (12:49→21:15)
[2018-09-02] MEDS: PANTOPRAZOLE 40 MG TABLET PO SCH (12:50)
[2018-09-02] MEDS: AMIODARONE 200 MG TAB PO SCH ×2 (12:50→21:15)
[2018-09-02] MEDS: METOPROLOL SUCCINATE (ER) 100 MG TAB.ER.24H PO SCH (12:50)
[2018-09-02] MEDS: POTASSIUM CHLORIDE ER 20 MEQ TAB.ER PO SCH (12:50)
[2018-09-02] MEDS: MULTIVITAMINS, THERA 1 EACH TAB PO SCH (12:50)
[2018-09-02] MEDS: MIDODRINE 5 MG TAB PO SCH ×3 (12:51→17:49)
[2018-09-02] MEDS: methylPREDNISolone SOD SUCCI 40 MG/ML 1 ML VIAL IV SCH ×2 (12:52→21:16)
[2018-09-02] MEDS: LEVOFLOXACIN 500 MG TAB PO SCH (12:59)
[2018-09-02] MEDS: DIGOXIN 250 MCG TAB PO SCH (12:59)
[2018-09-02] MEDS: levETIRAcetam 500 MG TAB PO SCH ×2 (12:59→21:15)
[2018-09-02] MEDS: ISOSORBIDE MONONITRATE ER 60 MG TAB.ER.24H PO SCH (13:00)
--- NOTE | 2018-09-02 14:31 | P.PN ---
Subjective Progress Note Date: 09/02/18 Sid Diaz is an 78-year-old male who presented to [facility] emergency room with a chief complaint of worsening shortness of breath he was evaluated in emergency room and had evidence of atrial fibrillation with rapid ventricular response he also had evidence of acute bronchitis, COPD exacerbation , he was hypotensive in the emergency room he was given IV fluid boluses, he was started on IV Cardizem drip, he was started on Levaquin for antibiotic he was also started on IV Solu-Medrol and inhaled bronchodilators he was admitted to telemetry floor for further evaluation and treatment cardiology consultation and pulmonary consultation were requested. Patient was recently admitted to [facility] with similar complaints he received antibiotics and IV steroids and was discharged home on , patient took oral antibiotic and oral steroids at home and was doing better however in the last 2-3 days his condition started to worsen. On 08/29/2018 patient was seen and examined on the telemetry floor he is alert and oriented 3 in no apparent distress he is still complaining of shortness of breath and cough otherwise he denies any complaints there is no fever or chills no headache or dizziness no chest pain no nausea or vomiting no abdominal pain and no urinary symptoms. 08/30/2018 patient sitting up in bed comfortably. Still having some wheezing and shortness of breath. Remains in atrial fibrillation with episodes of tachycardia requiring Cardizem drip. Patient denies any chest pain. Denies any nausea or vomiting. Reports having bowel movements. Denies any difficulty urinating. Patient has been having hyperglycemia secondary to steroids. Has required extra insulin. Last blood sugar was 239. 08/31/2018 patient had atrial fibrillation with rapid ventricular response yesterday requiring to be placed on IV amiodarone. Cardiology is planning to switch over to oral amiodarone later today. Echo shows an EF of 60-65%. Patient is still having some wheezing and shortness of breath. White count has decreased from 20.9 pound 15.7. Chest x-ray showed no evidence of pneumonia. Sodium level has gone up from 132-134. Cardiology is checking orthostatic blood pressures every shift. Patient denies any chest pain and heart palpitations. Denies any nausea or vomiting. Reports having bowel movements. Denies any difficulty urinating On 09/01/2018 patient was seen and examined on the telemetry floor he is alert and oriented 3 in no apparent distress heart rate is better controlled today he is off amiodarone drip cardiology are planning for MAL tomorrow. Clinically patient is doing better there is no fever or chills no headache or dizziness no chest pain patient still has shortness of breath with activity he has occasional cough there is no nausea or vomiting no abdominal pain no diarrhea and no urinary symptoms 09/02/2018 patient underwent MAL and cardioversion today. He is currently in sinus rhythm. MAL showed no thrombus and did show moderate mitral regurgitation. Pulmonary is decreasing the IV Solu-Medrol. Blood sugars are better controlled. Patient denies chest pain or shortness breath. Doesn't report improvement in his cough. Reports improvement in his energy level. No bowel movement 2 days. Denies any burning with urination. Objective - Vital Signs Vital signs: Vital Signs Temp 97 F L 09/02/18 11:08 Pulse 75 09/02/18 11:44 Resp 16 09/02/18 11:44 BP 117/62 09/02/18 11:44 Pulse Ox 94 L 09/02/18 11:44 Intake & Output 09/01/18 09/02/18 09/02/18 18:59 06:59 18:59 Intake Total 240 240 Output Total 1200 Balance 240 -1200 240 Weight 92.5 kg Intake: Oral 240 240 Output: Urine 1200 Other: Voiding Method Urinal # Voids 0 - Exam Head normocephalic Neck supple Lungs wheezing bilaterally with coarse breath sounds Heart irregular. A. fib on monitor Abdomen is soft nontender nondistended positive bowel sounds no hepatosplenomegaly Extremities no edema Neuro alert and orientated to 3 - Labs CBC & Chem 7: 09/02/18 06:12 09/02/18 06:12 Labs: Abnormal Lab Results - Last 24 Hours (Table) 09/01/18 09/01/18 09/02/18 Range/Units 16:56 21:36 06:12 WBC 14.1 H (3.8-10.6) k/uL Neutrophils # 11.8 H (1.3-7.7) k/uL Sodium (137-145) mmol/L Glucose (74-99) mg/dL POC Glucose (mg/dL) 192 H 174 H (75-99) mg/dL Calcium (8.4-10.2) mg/dL Total Protein (6.3-8.2) g/dL Albumin (3.5-5.0) g/dL 09/02/18 09/02/18 09/02/18 Range/Units 06:12 06:31 12:05 WBC (3.8-10.6) k/uL Neutrophils # (1.3-7.7) k/uL Sodium 134 L (137-145) mmol/L Glucose 168 H (74-99) mg/dL POC Glucose (mg/dL) 163 H 171 H (75-99) mg/dL Calcium 8.3 L (8.4-10.2) mg/dL Total Protein 5.7 L (6.3-8.2) g/dL Albumin 3.0 L (3.5-5.0) g/dL Assessment and Plan Assessment: #1 acute purulent bronchitis : Continue Levaquin. check Sputum culture #2 acute exacerbation of chronic obstructive pulmonary disease : Followed by pulmonary. Tapering down the IV steroids. Continue bronchodilators. #3 atrial fibrillation with rapid ventricular response: Patient status post cardioversion . Patient remains in sinus rhythm. Continue oral amiodarone and Eliquis for anticoagulation #4 underlying history of coronary artery disease with previous stent placement, no chest pain at this time #5 underlying history of prostate cancer. #6 underlying history of hyperlipidemia #7 acute on chronic hypoxic respiratory failure requiring home oxygen use #8 leukocytosis secondary to steroids #9 diabetes mellitus type 2 : A1c 9.2 continue Lantus and sliding scale. hyperglycemia secondary to steroids. #10 hyponatremia: Sodium has improved from 132-134. Patient did get a dose of IV Lasix in the ER. Continue to monitor For GI prophylaxis patient is maintained on Protonix for DVT prophylaxis patient is maintained on Eliquis I performed an examination of the patient and discussed their management with the physician Exhibition Carver. I have reviewed the Physician Exhibition Carver's notes and agree with the documented findings and plan of care
[2018-09-02 16:36] LABS: Glucose,Whole Blood 182 mg/dL (75-99)
[2018-09-02] MEDS: SODIUM CHLORIDE 0.9% 1,000 ML IV SCH (17:26)
[2018-09-02] MEDS: LISINOPRIL 2.5 MG TAB PO SCH (17:50)
[2018-09-02] MEDS: glipiZIDE 5 MG TAB PO SCH (17:50)
[2018-09-02 20:43] LABS: Glucose,Whole Blood 296 mg/dL (75-99)
[2018-09-02] MEDS: ATORVASTATIN 10 MG TAB PO SCH (21:15)
[2018-09-02] MEDS: MONTELUKAST 10 MG TAB PO SCH (21:15)
[2018-09-02] MEDS: INSULIN DETEMIR 100 UNIT/ML 10 ML VIAL SQ SCH (21:15)
[2018-09-03] MEDS: IPRATROPIUM-ALBUTEROL 3 ML NEB INHALATION SCH ×6 (00:14→19:26)
[2018-09-03 05:58] LABS: Glucose,Whole Blood 156 mg/dL (75-99)
[2018-09-03] MEDS: glipiZIDE 5 MG TAB PO SCH ×2 (06:11→17:30)
[2018-09-03] MEDS: PANTOPRAZOLE 40 MG TABLET PO SCH (06:11)
[2018-09-03] MEDS: MIDODRINE 5 MG TAB PO SCH ×4 (06:11→17:29)
[2018-09-03] MEDS: INSULIN ASPART 100 UNIT/ML 1 ML 10 ML VIAL SQ SCH ×4 (06:18→20:36)
[2018-09-03 06:31] LABS: Basophils % (A) 0 %; Eosinophils # (A) 0.1 k/uL (0-0.7); Eosinophils % (A) 1 %; HCT 43.6 % (39.0-53.0); Lymphocytes % (A) 12 %; MCH 28.1 pg (25.0-35.0); MCHC 32.1 g/dL (31.0-37.0); MCV 87.7 fL (80.0-100.0); Monocytes # (A) 0.4 k/uL (0-1.0); Monocytes % (A) 4 %; Neutrophils # (A) 6.9 k/uL (1.3-7.7); Neutrophils % (A) 82 %; Platelet Count 180 k/uL (150-450); RBC 4.97 m/uL (4.30-5.90); RDW 13.7 % (11.5-15.5); WBC 8.3 k/uL (3.8-10.6)
[2018-09-03 06:50] LABS: ALT 29 U/L (21-72); AST 15 U/L (17-59); Albumin 2.8 g/dL (3.5-5.0); Alkaline Phosphatase 44 U/L (38-126); Anion Gap 4 mmol/L; Blood Urea Nitrogen 19 mg/dL (9-20); Calcium 8.4 mg/dL (8.4-10.2); Carbon Dioxide 28 mmol/L (22-30); Chloride 99 mmol/L (98-107); Glucose 166 mg/dL (74-99); Potassium 4.3 mmol/L (3.5-5.1); Sodium 131 mmol/L (137-145); Total Bilirubin 0.9 mg/dL (0.2-1.3); Total Protein 5.3 g/dL (6.3-8.2)
[2018-09-03] MEDS: SYMBICORT 160-4.5 MCG INHALER INHALATION SCH ×2 (07:49→19:26)
[2018-09-03] MEDS: methylPREDNISolone SOD SUCCI 40 MG/ML 1 ML VIAL IV SCH ×2 (10:17→20:37)
[2018-09-03] MEDS: POTASSIUM CHLORIDE ER 20 MEQ TAB.ER PO SCH (10:18)
[2018-09-03] MEDS: METOPROLOL SUCCINATE (ER) 100 MG TAB.ER.24H PO SCH (10:18)
[2018-09-03] MEDS: ISOSORBIDE MONONITRATE ER 60 MG TAB.ER.24H PO SCH (10:18)
[2018-09-03] MEDS: AMIODARONE 200 MG TAB PO SCH ×2 (10:18→20:36)
[2018-09-03] MEDS: LEVOFLOXACIN 500 MG TAB PO SCH (10:19)
[2018-09-03] MEDS: guaiFENesin 600 MG TABLET.ER PO SCH ×2 (10:19→20:36)
[2018-09-03] MEDS: CLOPIDOGREL 75 MG TAB PO SCH (10:19)
[2018-09-03] MEDS: DIGOXIN 250 MCG TAB PO SCH (10:19)
[2018-09-03] MEDS: APIXABAN 2.5 MG TABLET PO SCH ×2 (10:19→20:36)
[2018-09-03] MEDS: levETIRAcetam 500 MG TAB PO SCH ×2 (10:19→20:37)
[2018-09-03 11:37] LABS: Glucose,Whole Blood 174 mg/dL (75-99)
--- NOTE | 2018-09-03 12:43 | P.PN ---
Subjective Progress Note Date: 09/03/18 This is a pleasant 78-year-old male past medical history significant for hypertension, dyslipidemia, stable coronary artery disease, COPD, diabetes mellitus, seizure disorder, asthma and paroxysmal atrial fibrillation on long- term anticoagulation diagnosed June 2018. He follows in the office with Dr. Arriaga. We have been asked to see him in consultation secondary to atrial fibrillation with rapid ventricular response. He presented to the hospital with symptoms of dizziness and feeling lightheaded. The patient continues to be in atrial fibrillation this morning, his heart rate is in the 80s, blood pressure 112/60, 93% on 2 L of oxygen. White blood cell count 20.9, hemoglobin 15.3, platelet count 2:15. Sodium 132, potassium 4.1, BUN 27 and creatinine 0.7. 08/31/2018 Patient was seen and examined this morning, denies any chest discomfort or palpitations, breathing is stable. He does state that when he sits up quickly he still gets symptoms of dizziness, we will have the nurse check orthostatics on him. White blood cell count 15.7, hemoglobin 14.1, platelet count 211. Sodium 134, potassium 4.2, BUN 21, creatinine 0.6. Blood pressure this morning 110/50, heart rate in the 120 range. The patient is currently on IV amiodarone drip, once this is finished we will change him over to oral amiodarone. He is also on 100 mg of Toprol-XL daily. 09/01/2018 Patient was seen and examined this morning, overall he states he feels well today. Denies any dizziness or lightheadedness. Pressure this morning 107/78, heart rate continues to be in the 120 range. 93% on room air. Orthostatics were obtained yesterday which did come back to be mildly positive. Patient was initiated on midodrine. White blood cell count 13.0, hemoglobin 14.2, platelet count 193. Sodium 135, potassium 4.9, BUN 22 and creatinine 0.7. 09/03/2018 Patient was seen and examined this morning, yesterday he underwent transesophageal echocardiographic study with subsequent cardioversion. This morning he remains in a normal sinus rhythm. According to the patient overall he feels well. Continues to have congested cough. Breathing overall is stable , no palpitations. Blood pressure 134/60 with a heart rate in the 50s to 60s, 100% on room air. Sodium 138, potassium 4.4, BUN 20, creatinine 0.8. Objective - Vital Signs Vital signs: Vital Signs Temp 97.6 F 09/03/18 08:45 Pulse 74 09/03/18 12:35 Resp 18 09/03/18 08:45 BP 128/58 09/03/18 08:45 Pulse Ox 94 L 09/03/18 08:45 Intake & Output 09/02/18 09/03/18 09/03/18 18:59 06:59 18:59 Intake Total 680 240 Output Total 1100 500 600 Balance -420 -500 -360 Weight 87.5 kg Intake: Oral 680 240 Output: Urine 1100 500 600 Other: Voiding Method Urinal # Voids 1 - Exam Blood pressure 135/68 heart rate 56 afebrile maintaining oxygen saturation on nasal cannula GENERAL: This is a 78-year-old male in no apparent distress at the time of my examination. HEENT: Head is atraumatic, normocephalic. Pupils are equal, round. Sclerae anicteric. Conjunctivae are clear. Mucous membranes of the mouth are moist. Neck is supple. There is no jugular venous distention. No carotid bruit is heard. LUNGS: Reveal scattered coarse rhonchi throughout . HEART: S1 and S2 normal . ABDOMEN: Soft, nontender. Bowel sounds are heard. No organomegaly noted. EXTREMITIES: No evidence of peripheral edema and no calf tenderness noted. VASCULAR: Radial and dorsalis pedis pulses palpated, no evidence of clubbing. NEUROLOGIC: Patient is awake, alert and oriented x3. - Labs CBC & Chem 7: 09/03/18 06:15 09/03/18 06:15 Labs: Abnormal Lab Results - Last 24 Hours (Table) 09/02/18 09/02/18 09/03/18 Range/Units 16:29 20:42 05:57 Sodium (137-145) mmol/L Glucose (74-99) mg/dL POC Glucose (mg/dL) 182 H 296 H 156 H (75-99) mg/dL AST (17-59) U/L Total Protein (6.3-8.2) g/dL Albumin (3.5-5.0) g/dL 09/03/18 09/03/18 Range/Units 06:15 11:35 Sodium 131 L (137-145) mmol/L Glucose 166 H (74-99) mg/dL POC Glucose (mg/dL) 174 H (75-99) mg/dL AST 15 L (17-59) U/L Total Protein 5.3 L (6.3-8.2) g/dL Albumin 2.8 L (3.5-5.0) g/dL Assessment and Plan Plan: Assessment and plan #1 Paroxysmal atrial fibrillation with rapid ventricular response on long term acute care registered nurse anticoagulation, status post MAL and cardioversion yesterday, remaining in normal sinus rhythm. #2 Acute tracheobronchitis #3 History of coronary artery disease with mild in-stent restenosis #4 Hypertension #5 COPD Plan From cardiology's perspective, would recommend to continue the patient on his current medications. From our perspective he is stable for discharge once cleared by primary. We will make him a follow-up appointment in our office post discharge. DNP note has been reviewed, I agree with a documented findings and plan of care. Patient was seen and examined.
--- NOTE | 2018-09-03 13:02 | P.PN ---
Subjective Progress Note Date: 09/03/18 Sid Diaz is an 78-year-old male who presented to [facility] emergency room with a chief complaint of worsening shortness of breath he was evaluated in emergency room and had evidence of atrial fibrillation with rapid ventricular response he also had evidence of acute bronchitis, COPD exacerbation , he was hypotensive in the emergency room he was given IV fluid boluses, he was started on IV Cardizem drip, he was started on Levaquin for antibiotic he was also started on IV Solu-Medrol and inhaled bronchodilators he was admitted to telemetry floor for further evaluation and treatment cardiology consultation and pulmonary consultation were requested. Patient was recently admitted to [facility] with similar complaints he received antibiotics and IV steroids and was discharged home on , patient took oral antibiotic and oral steroids at home and was doing better however in the last 2-3 days his condition started to worsen. On 08/29/2018 patient was seen and examined on the telemetry floor he is alert and oriented 3 in no apparent distress he is still complaining of shortness of breath and cough otherwise he denies any complaints there is no fever or chills no headache or dizziness no chest pain no nausea or vomiting no abdominal pain and no urinary symptoms. 08/30/2018 patient sitting up in bed comfortably. Still having some wheezing and shortness of breath. Remains in atrial fibrillation with episodes of tachycardia requiring Cardizem drip. Patient denies any chest pain. Denies any nausea or vomiting. Reports having bowel movements. Denies any difficulty urinating. Patient has been having hyperglycemia secondary to steroids. Has required extra insulin. Last blood sugar was 239. 08/31/2018 patient had atrial fibrillation with rapid ventricular response yesterday requiring to be placed on IV amiodarone. Cardiology is planning to switch over to oral amiodarone later today. Echo shows an EF of 60-65%. Patient is still having some wheezing and shortness of breath. White count has decreased from 20.9 pound 15.7. Chest x-ray showed no evidence of pneumonia. Sodium level has gone up from 132-134. Cardiology is checking orthostatic blood pressures every shift. Patient denies any chest pain and heart palpitations. Denies any nausea or vomiting. Reports having bowel movements. Denies any difficulty urinating On 09/01/2018 patient was seen and examined on the telemetry floor he is alert and oriented 3 in no apparent distress heart rate is better controlled today he is off amiodarone drip cardiology are planning for MAL tomorrow. Clinically patient is doing better there is no fever or chills no headache or dizziness no chest pain patient still has shortness of breath with activity he has occasional cough there is no nausea or vomiting no abdominal pain no diarrhea and no urinary symptoms 09/02/2018 patient underwent MAL and cardioversion today. He is currently in sinus rhythm. MAL showed no thrombus and did show moderate mitral regurgitation. Pulmonary is decreasing the IV Solu-Medrol. Blood sugars are better controlled. Patient denies chest pain or shortness breath. Doesn't report improvement in his cough. Reports improvement in his energy level. No bowel movement 2 days. Denies any burning with urination. 09/03/2018 patient remains in normal sinus rhythm. Cardiology has cleared patient for discharge. He is still having a congestive cough. Sputum was collected today. Will add Mucinex. Encouraged patient to increase activity. Patient denies any chest pain. Reports that he is feeling better. Denies any nausea or vomiting. Reports having bowel movements. Denies any difficulty urinating. White count improved from 14.1-8.3 sodium 134 down to 131 Objective - Vital Signs Vital signs: Vital Signs Temp 97.6 F 09/03/18 08:45 Pulse 74 09/03/18 12:35 Resp 18 09/03/18 08:45 BP 128/58 09/03/18 08:45 Pulse Ox 94 L 09/03/18 08:45 Intake & Output 09/02/18 09/03/18 09/03/18 18:59 06:59 18:59 Intake Total 680 240 Output Total 1100 500 600 Balance -420 -500 -360 Weight 87.5 kg Intake: Oral 680 240 Output: Urine 1100 500 600 Other: Voiding Method Urinal # Voids 1 - Exam Head normocephalic Neck supple Lungs wheezing bilaterally with coarse breath sounds Heart normal sinus rhythm Abdomen is soft nontender nondistended positive bowel sounds no hepatosplenomegaly Extremities no edema Neuro alert and orientated to 3 - Labs CBC & Chem 7: 09/03/18 06:15 09/03/18 06:15 Labs: Abnormal Lab Results - Last 24 Hours (Table) 09/02/18 09/02/18 09/03/18 Range/Units 16:29 20:42 05:57 Sodium (137-145) mmol/L Glucose (74-99) mg/dL POC Glucose (mg/dL) 182 H 296 H 156 H (75-99) mg/dL AST (17-59) U/L Total Protein (6.3-8.2) g/dL Albumin (3.5-5.0) g/dL 09/03/18 09/03/18 Range/Units 06:15 11:35 Sodium 131 L (137-145) mmol/L Glucose 166 H (74-99) mg/dL POC Glucose (mg/dL) 174 H (75-99) mg/dL AST 15 L (17-59) U/L Total Protein 5.3 L (6.3-8.2) g/dL Albumin 2.8 L (3.5-5.0) g/dL Assessment and Plan Assessment: #1 acute purulent bronchitis : Continue Levaquin. Sputum culture pending #2 acute exacerbation of chronic obstructive pulmonary disease : Followed by pulmonary. Tapering down the IV steroids. Continue bronchodilators. #3 paroxysmal atrial fibrillation with atrial fibrillation and rapid ventricular response: Patient status post cardioversion . Patient remains in sinus rhythm. Continue oral amiodarone , digoxin and metoprolol. Continue Eliquis for anticoagulation #4 underlying history of coronary artery disease with previous stent placement, no chest pain at this time #5 underlying history of prostate cancer. #6 underlying history of hyperlipidemia #7 acute on chronic hypoxic respiratory failure requiring home oxygen use #8 leukocytosis secondary to steroids. Improved #9 diabetes mellitus type 2 : A1c 9.2 continue Lantus and sliding scale. Continue glipizide 5 g twice a day. hyperglycemia secondary to steroids. #10 hyponatremia: Sodium has improved from 132-134. Patient did get a dose of IV Lasix in the ER. Continue to monitor For GI prophylaxis patient is maintained on Protonix for DVT prophylaxis patient is maintained on Eliquis Plan Consult physical therapy. Encouraged patient to increase activity. Add Mucinex. Await sputum culture I performed an examination of the patient and discussed their management with the physician Personal Consultant. I have reviewed the Physician Personal Consultant's notes and agree with the documented findings and plan of care
[2018-09-03] MEDS: MULTIVITAMINS, THERA 1 EACH TAB PO SCH (14:26)
--- NOTE | 2018-09-03 14:56 | P.PN ---
Subjective Progress Note Date: 09/03/18 Principal diagnosis: Acute COPD exacerbation, tracheobronchitis, chronic persistent severe asthma, obstructive sleep apnea, congestive heart failure likely acute diastolic heart failure related to atrial fibrillation and rapid ventricular response, morbid obesity, coronary artery disease 09/03/2018, patient seen eval examined during the rounds clinically has been doing better breathing more comfortably denies any chest pain cough congestion is improved, patient is status post cardioversion and MAL, respiratory status has improved patient can be switched to oral prednisone and antibiotics can be discharged home from pulmonary standpoint with follow-up in outpatient setting 09/02/2018, patient seen eval examined during the rounds care plan discussed with cardiovascular services as well patient is scheduled for MAL and cardioversion as well from [facility] standpoint overall remains stable still have intermittent episodes of cough congestion and shortness of breath breathing treatment appears to be helping however patient does go into intermittent episodes of A. fib with rapid ventricular response 09/01/2018, patient seen eval reexamined during the rounds continue to have intermittent episodes of atrial fibrillation with rapid ventricular response patient has been having intermittent episodes of respiratory distress requiring breathing treatment he remains on antibiotics and steroids has been tapered down , patient is being followed by cardiovascular services 08/31/2018, patient seen eval examined during the rounds clinically has been doing slightly better in terms of breathing but is still of ongoing cough congestion and shortness of breath and wheezing, severity has improved, patient continued to have the episodes of A. fib with rapid ventricular response, patient has been on IV amiodarone as per cardiovascular services, recent echo failed to reveal a worsening of ejection fraction remains stable 60-65%, labs are improved, white cell count continue to improve as well, we'll start tapering down the steroids continue antibiotics recent chest x-ray reviewed 08/30/2018, patient seen eval examined during the rounds clinically has been doing slightly better cough congestion shortness breath is improved but is still have ongoing respiratory symptoms heart rate remained stable, but is still have intermittent episodes of tachycardia, patient remains afebrile, white cell count have gone up likely related to high-dose IV steroids labs reviewed medications reviewed 78-year-old male with history of end-stage lung disease agrees severe COPD emphysema also history of chronic persistent ALLERGIC asthma, patient was brought in the emergency department by the EMS due to severe shortness of breath palpitation, patient symptoms started about 2 days prior to coming into the hospital associated with increased cough congestion patient does have the rapid atrial fibrillation arrival, he does have history of coronary artery disease with 4 stents to were pleased in this institute and 2 were presented history of [place], patient spontaneously converted back to sinus rhythm cardiovascular services has been evaluating this patient as well he still complaining of cough congestion shortness of breath, currently patient is being treated with his home medications, , IV Cardizem as been initiated which is being discontinued, patient is being treated with broad-spectrum antibiotics bronchodilators and steroid, chest x-ray failed to reveal any active infiltrate but however consistent with COPD Objective - Vital Signs Vital signs: Vital Signs Temp 97.6 F 09/03/18 08:45 Pulse 74 09/03/18 12:35 Resp 18 09/03/18 08:45 BP 128/58 09/03/18 08:45 Pulse Ox 94 L 09/03/18 08:45 Intake & Output 09/02/18 09/03/18 09/03/18 18:59 06:59 18:59 Intake Total 680 480 Output Total 1100 500 600 Balance -420 -500 -120 Weight 87.5 kg Intake: Oral 680 480 Output: Urine 1100 500 600 Other: Voiding Method Urinal # Voids 1 - Exam Constitutional General appearance: average body habitus, cooperative, disheveled, mild distress , obese - EENT Eyes: EOMI, PERRLA, poor dentition, normal appearance Ears: bilateral: normal - Neck Carotids: bilateral: upstroke normal, bruit absent Thyroid: bilateral: normal size - Respiratory Respiratory: bilateral: diminished, rhonchi, wheezing, prolonged expiration, negative: CTA, dullness, rales, prolonged inspiration - Cardiovascular Rhythm: regular Heart sounds: normal: S1, S2 - Gastrointestinal General gastrointestinal: absent bowel sounds - Neurologic Neurologic: CNII-XII intact - Musculoskeletal Musculoskeletal: gait normal, generalized weakness, strength equal bilaterally - Psychiatric Psychiatric: A&O x's 3, appropriate affect, intact judgment & insight - Labs CBC & Chem 7: 09/03/18 06:15 09/03/18 06:15 Labs: Abnormal Lab Results - Last 24 Hours (Table) 09/02/18 09/02/18 09/03/18 Range/Units 16:29 20:42 05:57 Sodium (137-145) mmol/L Glucose (74-99) mg/dL POC Glucose (mg/dL) 182 H 296 H 156 H (75-99) mg/dL AST (17-59) U/L Total Protein (6.3-8.2) g/dL Albumin (3.5-5.0) g/dL 09/03/18 09/03/18 Range/Units 06:15 11:35 Sodium 131 L (137-145) mmol/L Glucose 166 H (74-99) mg/dL POC Glucose (mg/dL) 174 H (75-99) mg/dL AST 15 L (17-59) U/L Total Protein 5.3 L (6.3-8.2) g/dL Albumin 2.8 L (3.5-5.0) g/dL Assessment and Plan Assessment: Acute purulent tracheobronchitis Atrial fibrillation with rapid ventricular response, status post MAL and cardioversion responded well Acute COPD exacerbation Hyperglycemia related to high-dose IV steroids Diabetes Chronic persistent severe asthma with component of ALLERGIC asthma Coronary artery disease with history of multiple stent placement in the past Sleep disorder breathing and sleep apnea Obesity Plan: MAL and cardioversion Broad-spectrum antibiotics Gentle rehydration Bronchodilators IV steroids, would taper slowly, for now we'll keep on 40 mg every 12 Continue anticoagulation Continue home medications Repeat chest x-ray reviewed overall changes remains stable Further recommendations pending plan of care as per clinical response of the patient Time with Patient: Greater than 30
[2018-09-03 16:47] LABS: Glucose,Whole Blood 197 mg/dL (75-99)
[2018-09-03] MEDS: LISINOPRIL 2.5 MG TAB PO SCH (17:29)
[2018-09-03] MEDS: SODIUM CHLORIDE 0.9% 1,000 ML IV SCH (19:55)
[2018-09-03 20:28] LABS: Glucose,Whole Blood 223 mg/dL (75-99)
[2018-09-03] MEDS: INSULIN DETEMIR 100 UNIT/ML 10 ML VIAL SQ SCH (20:36)
[2018-09-03] MEDS: ATORVASTATIN 10 MG TAB PO SCH (20:36)
[2018-09-03] MEDS: MONTELUKAST 10 MG TAB PO SCH (20:37)
[2018-09-04] MEDS: IPRATROPIUM-ALBUTEROL 3 ML NEB INHALATION SCH ×7 (00:27→23:51)
[2018-09-04 06:04] LABS: Glucose,Whole Blood 204 mg/dL (75-99)
[2018-09-04] MEDS: PANTOPRAZOLE 40 MG TABLET PO SCH (06:45)
[2018-09-04] MEDS: glipiZIDE 5 MG TAB PO SCH ×2 (06:45→17:30)
[2018-09-04] MEDS: INSULIN ASPART 100 UNIT/ML 1 ML 10 ML VIAL SQ SCH ×4 (06:45→21:36)
[2018-09-04] MEDS: MIDODRINE 5 MG TAB PO SCH ×3 (06:51→17:30)
[2018-09-04 07:11] LABS: Basophils % (A) 0 %; Eosinophils % (A) 0 %; HCT 43.8 % (39.0-53.0); HGB 14.2 gm/dL (13.0-17.5); Lymphocytes # (A) 0.9 k/uL (1.0-4.8); Lymphocytes % (A) 10 %; MCH 28.4 pg (25.0-35.0); MCHC 32.4 g/dL (31.0-37.0); MCV 87.6 fL (80.0-100.0); Mean Platelet Volume 6.1; Monocytes # (A) 0.3 k/uL (0-1.0); Monocytes % (A) 3 %; Neutrophils # (A) 7.7 k/uL (1.3-7.7); Neutrophils % (A) 86 %; Platelet Count 202 k/uL (150-450); RDW 13.5 % (11.5-15.5); WBC 8.9 k/uL (3.8-10.6)
[2018-09-04 07:19] LABS: ALT 30 U/L (21-72); AST 17 U/L (17-59); Alkaline Phosphatase 51 U/L (38-126); Anion Gap 7 mmol/L; Blood Urea Nitrogen 18 mg/dL (9-20); Calcium 8.6 mg/dL (8.4-10.2); Carbon Dioxide 26 mmol/L (22-30); Chloride 99 mmol/L (98-107); Glucose 224 mg/dL (74-99); Potassium 4.4 mmol/L (3.5-5.1); Sodium 132 mmol/L (137-145); Total Bilirubin 0.7 mg/dL (0.2-1.3); Total Protein 5.5 g/dL (6.3-8.2)
[2018-09-04] MEDS: SYMBICORT 160-4.5 MCG INHALER INHALATION SCH ×2 (08:03→20:16)
[2018-09-04] MEDS: POTASSIUM CHLORIDE ER 20 MEQ TAB.ER PO SCH (08:58)
[2018-09-04] MEDS: guaiFENesin 600 MG TABLET.ER PO SCH ×2 (08:58→21:27)
[2018-09-04] MEDS: LEVOFLOXACIN 500 MG TAB PO SCH (08:58)
[2018-09-04] MEDS: AMIODARONE 200 MG TAB PO SCH ×2 (08:58→21:27)
[2018-09-04] MEDS: methylPREDNISolone SOD SUCCI 40 MG/ML 1 ML VIAL IV SCH ×2 (08:59→21:29)
[2018-09-04] MEDS: METOPROLOL SUCCINATE (ER) 100 MG TAB.ER.24H PO SCH (08:59)
[2018-09-04] MEDS: ISOSORBIDE MONONITRATE ER 60 MG TAB.ER.24H PO SCH (08:59)
[2018-09-04] MEDS: levETIRAcetam 500 MG TAB PO SCH ×2 (08:59→21:27)
[2018-09-04] MEDS: CLOPIDOGREL 75 MG TAB PO SCH (08:59)
[2018-09-04] MEDS: APIXABAN 2.5 MG TABLET PO SCH ×2 (08:59→21:27)
[2018-09-04] MEDS: DIGOXIN 250 MCG TAB PO SCH (10:34)
--- NOTE | 2018-09-04 11:28 | P.PN ---
Subjective Progress Note Date: 09/04/18 This is a pleasant 78-year-old male past medical history significant for hypertension, dyslipidemia, stable coronary artery disease, COPD, diabetes mellitus, seizure disorder, asthma and paroxysmal atrial fibrillation on long- term anticoagulation diagnosed June 2018. He follows in the office with Dr. Arriaga. We have been asked to see him in consultation secondary to atrial fibrillation with rapid ventricular response. He presented to the hospital with symptoms of dizziness and feeling lightheaded. The patient continues to be in atrial fibrillation this morning, his heart rate is in the 80s, blood pressure 112/60, 93% on 2 L of oxygen. White blood cell count 20.9, hemoglobin 15.3, platelet count 2:15. Sodium 132, potassium 4.1, BUN 27 and creatinine 0.7. 08/31/2018 Patient was seen and examined this morning, denies any chest discomfort or palpitations, breathing is stable. He does state that when he sits up quickly he still gets symptoms of dizziness, we will have the nurse check orthostatics on him. White blood cell count 15.7, hemoglobin 14.1, platelet count 211. Sodium 134, potassium 4.2, BUN 21, creatinine 0.6. Blood pressure this morning 110/50, heart rate in the 120 range. The patient is currently on IV amiodarone drip, once this is finished we will change him over to oral amiodarone. He is also on 100 mg of Toprol-XL daily. 09/01/2018 Patient was seen and examined this morning, overall he states he feels well today. Denies any dizziness or lightheadedness. Pressure this morning 107/78, heart rate continues to be in the 120 range. 93% on room air. Orthostatics were obtained yesterday which did come back to be mildly positive. Patient was initiated on midodrine. White blood cell count 13.0, hemoglobin 14.2, platelet count 193. Sodium 135, potassium 4.9, BUN 22 and creatinine 0.7. 09/03/2018 Patient was seen and examined this morning, yesterday he underwent transesophageal echocardiographic study with subsequent cardioversion. This morning he remains in a normal sinus rhythm. According to the patient overall he feels well. Continues to have congested cough. Breathing overall is stable , no palpitations. Blood pressure 134/60 with a heart rate in the 50s to 60s, 100% on room air. Sodium 138, potassium 4.4, BUN 20, creatinine 0.8. 09/04/2018 Patient seen and examined this morning, remaining in normal sinus rhythm. Feeling significantly better overall. Still continues to have cough however it is much improved even from yesterday. Blood pressure 146/60 with a heart rate in the 60s. Objective - Vital Signs Vital signs: Vital Signs Temp 97.4 F L 09/04/18 08:00 Pulse 68 09/04/18 08:12 Resp 20 09/04/18 08:00 BP 146/68 09/04/18 10:33 Pulse Ox 95 09/04/18 08:05 Intake & Output 09/03/18 09/04/18 09/04/18 18:59 06:59 18:59 Intake Total 1360 360 Output Total 600 400 Balance 760 -400 360 Weight 86.6 kg Intake: Oral 1360 360 Output: Urine 600 400 Other: Voiding Method Urinal Urinal - Exam Blood pressure 135/68 heart rate 56 afebrile maintaining oxygen saturation on nasal cannula GENERAL: This is a 78-year-old male in no apparent distress at the time of my examination. HEENT: Head is atraumatic, normocephalic. Pupils are equal, round. Sclerae anicteric. Conjunctivae are clear. Mucous membranes of the mouth are moist. Neck is supple. There is no jugular venous distention. No carotid bruit is heard. LUNGS: Reveal scattered coarse rhonchi throughout . HEART: S1 and S2 normal . ABDOMEN: Soft, nontender. Bowel sounds are heard. No organomegaly noted. EXTREMITIES: No evidence of peripheral edema and no calf tenderness noted. VASCULAR: Radial and dorsalis pedis pulses palpated, no evidence of clubbing. NEUROLOGIC: Patient is awake, alert and oriented x3. - Labs CBC & Chem 7: 09/04/18 06:02 09/04/18 06:02 Labs: Abnormal Lab Results - Last 24 Hours (Table) 09/03/18 09/03/18 09/03/18 Range/Units 11:35 16:45 20:26 Lymphocytes # (1.0-4.8) k/uL Sodium (137-145) mmol/L Glucose (74-99) mg/dL POC Glucose (mg/dL) 174 H 197 H 223 H (75-99) mg/dL Total Protein (6.3-8.2) g/dL Albumin (3.5-5.0) g/dL 09/04/18 09/04/18 09/04/18 Range/Units 06:01 06:02 06:02 Lymphocytes # 0.9 L (1.0-4.8) k/uL Sodium 132 L (137-145) mmol/L Glucose 224 H (74-99) mg/dL POC Glucose (mg/dL) 204 H (75-99) mg/dL Total Protein 5.5 L (6.3-8.2) g/dL Albumin 3.0 L (3.5-5.0) g/dL Microbiology - Last 24 Hours (Table) 09/03/18 00:26 Gram Stain - Preliminary Sputum Assessment and Plan Plan: Assessment and plan #1 Paroxysmal atrial fibrillation with rapid ventricular response on 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 #2 Acute tracheobronchitis #3 History of coronary artery disease with mild in-stent restenosis #4 Hypertension #5 COPD Plan From cardiology's perspective, would recommend to continue the patient on his current medications. From our perspective he is stable for discharge once cleared by primary. We will make him a follow-up appointment in our office post discharge. We will follow him along with you now on an as-needed basis only, please don't hesitate to call with any questions. DNP note has been reviewed, I agree with a documented findings and plan of care. Patient was seen and examined.
[2018-09-04 11:44] LABS: Glucose,Whole Blood 222 mg/dL (75-99)
[2018-09-04] MEDS: MULTIVITAMINS, THERA 1 EACH TAB PO SCH (12:27)
[2018-09-04 13:25] VITALS: BMI 30.8
--- NOTE | 2018-09-04 15:03 | P.PN ---
Subjective Progress Note Date: 09/04/18 Sid Diaz is an 78-year-old male who presented to [facility] emergency room with a chief complaint of worsening shortness of breath he was evaluated in emergency room and had evidence of atrial fibrillation with rapid ventricular response he also had evidence of acute bronchitis, COPD exacerbation , he was hypotensive in the emergency room he was given IV fluid boluses, he was started on IV Cardizem drip, he was started on Levaquin for antibiotic he was also started on IV Solu-Medrol and inhaled bronchodilators he was admitted to telemetry floor for further evaluation and treatment cardiology consultation and pulmonary consultation were requested. Patient was recently admitted to [facility] with similar complaints he received antibiotics and IV steroids and was discharged home on , patient took oral antibiotic and oral steroids at home and was doing better however in the last 2-3 days his condition started to worsen. On 08/29/2018 patient was seen and examined on the telemetry floor he is alert and oriented 3 in no apparent distress he is still complaining of shortness of breath and cough otherwise he denies any complaints there is no fever or chills no headache or dizziness no chest pain no nausea or vomiting no abdominal pain and no urinary symptoms. 08/30/2018 patient sitting up in bed comfortably. Still having some wheezing and shortness of breath. Remains in atrial fibrillation with episodes of tachycardia requiring Cardizem drip. Patient denies any chest pain. Denies any nausea or vomiting. Reports having bowel movements. Denies any difficulty urinating. Patient has been having hyperglycemia secondary to steroids. Has required extra insulin. Last blood sugar was 239. 08/31/2018 patient had atrial fibrillation with rapid ventricular response yesterday requiring to be placed on IV amiodarone. Cardiology is planning to switch over to oral amiodarone later today. Echo shows an EF of 60-65%. Patient is still having some wheezing and shortness of breath. White count has decreased from 20.9 pound 15.7. Chest x-ray showed no evidence of pneumonia. Sodium level has gone up from 132-134. Cardiology is checking orthostatic blood pressures every shift. Patient denies any chest pain and heart palpitations. Denies any nausea or vomiting. Reports having bowel movements. Denies any difficulty urinating On 09/01/2018 patient was seen and examined on the telemetry floor he is alert and oriented 3 in no apparent distress heart rate is better controlled today he is off amiodarone drip cardiology are planning for MAL tomorrow. Clinically patient is doing better there is no fever or chills no headache or dizziness no chest pain patient still has shortness of breath with activity he has occasional cough there is no nausea or vomiting no abdominal pain no diarrhea and no urinary symptoms 09/02/2018 patient underwent MAL and cardioversion today. He is currently in sinus rhythm. MAL showed no thrombus and did show moderate mitral regurgitation. Pulmonary is decreasing the IV Solu-Medrol. Blood sugars are better controlled. Patient denies chest pain or shortness breath. Doesn't report improvement in his cough. Reports improvement in his energy level. No bowel movement 2 days. Denies any burning with urination. 09/03/2018 patient remains in normal sinus rhythm. Cardiology has cleared patient for discharge. He is still having a congestive cough. Sputum was collected today. Will add Mucinex. Encouraged patient to increase activity. Patient denies any chest pain. Reports that he is feeling better. Denies any nausea or vomiting. Reports having bowel movements. Denies any difficulty urinating. White count improved from 14.1-8.3 sodium 134 down to 131 09/04/2018 patient was seen and examined on the telemetry floor, he is alert and oriented x3, Sputum culture pending. Encouraged patient to increase activity. There is no fever or chills no headache or dizziness no chest pain there is shortness of breath with activity and occasional cough no nausea or vomiting no abdominal pain no diarrhea and no urinary symptoms Objective - Vital Signs Vital signs: Vital Signs Temp 97.4 F L 09/04/18 12:00 Pulse 60 09/04/18 12:00 Resp 20 09/04/18 12:00 BP 129/69 09/04/18 12:00 Pulse Ox 93 L 09/04/18 12:00 Intake & Output 09/03/18 09/04/18 09/04/18 18:59 06:59 18:59 Intake Total 1360 360 Output Total 600 400 Balance 760 -400 360 Weight 86.6 kg 86.6 kg Intake: Oral 1360 360 Output: Urine 600 400 Other: Voiding Method Urinal Urinal # Voids 2 - Exam In general patient is alert and oriented 3 in no apparent distress HEENT head normocephalic and atraumatic Neck is supple no JVD no goiter no lymphadenopathy Chest exam reveals few crackles in both lung villarreal with wheezing Cardiac exam reveals irregular heart sounds S1 and S2 with tachycardia no gallops no murmurs Abdomen is soft nontender no organomegaly with normal bowel sounds Extremity exam reveals no edema no cyanosis or clubbing Neurological examination reveals no gross focal deficit - Labs CBC & Chem 7: 09/04/18 06:02 09/04/18 06:02 Labs: Abnormal Lab Results - Last 24 Hours (Table) 09/03/18 09/03/18 09/04/18 Range/Units 16:45 20:26 06:01 Lymphocytes # (1.0-4.8) k/uL Sodium (137-145) mmol/L Glucose (74-99) mg/dL POC Glucose (mg/dL) 197 H 223 H 204 H (75-99) mg/dL Total Protein (6.3-8.2) g/dL Albumin (3.5-5.0) g/dL 09/04/18 09/04/18 09/04/18 Range/Units 06:02 06:02 11:11 Lymphocytes # 0.9 L (1.0-4.8) k/uL Sodium 132 L (137-145) mmol/L Glucose 224 H (74-99) mg/dL POC Glucose (mg/dL) 222 H (75-99) mg/dL Total Protein 5.5 L (6.3-8.2) g/dL Albumin 3.0 L (3.5-5.0) g/dL Microbiology - Last 24 Hours (Table) 09/03/18 00:26 Gram Stain - Preliminary Sputum Sputum Culture - Preliminary [place] albicans Assessment and Plan Plan: #1 acute purulent bronchitis : Continue Levaquin. Sputum culture pending #2 acute exacerbation of chronic obstructive pulmonary disease : Followed by pulmonary. Tapering down the IV steroids. Continue bronchodilators. #3 paroxysmal atrial fibrillation with atrial fibrillation and rapid ventricular response: Patient status post cardioversion . Patient remains in sinus rhythm. Continue oral amiodarone , digoxin and metoprolol. Continue Eliquis for anticoagulation #4 underlying history of coronary artery disease with previous stent placement, no chest pain at this time #5 underlying history of prostate cancer. #6 underlying history of hyperlipidemia #7 acute on chronic hypoxic respiratory failure requiring home oxygen use #8 leukocytosis secondary to steroids. Improved #9 diabetes mellitus type 2 : A1c 9.2 continue Lantus and sliding scale. Continue glipizide 5 g twice a day. hyperglycemia secondary to steroids. #10 hyponatremia: Sodium has improved from 132-134. Patient did get a dose of IV Lasix in the ER. Continue to monitor For GI prophylaxis patient is maintained on Protonix for DVT prophylaxis patient is maintained on Eliquis Plan Consult physical therapy. Encouraged patient to increase activity. Await sputum culture
[2018-09-04 16:30] LABS: Glucose,Whole Blood 257 mg/dL (75-99)
[2018-09-04] MEDS: LISINOPRIL 2.5 MG TAB PO SCH (17:30)
[2018-09-04] MEDS: SODIUM CHLORIDE 0.9% 1,000 ML IV SCH (21:22)
[2018-09-04] MEDS: ATORVASTATIN 10 MG TAB PO SCH (21:27)
[2018-09-04] MEDS: MONTELUKAST 10 MG TAB PO SCH (21:28)
[2018-09-04 21:35] LABS: Glucose,Whole Blood 234 mg/dL (75-99)
[2018-09-04] MEDS: INSULIN DETEMIR 100 UNIT/ML 10 ML VIAL SQ SCH (21:35)
[2018-09-05] MEDS: IPRATROPIUM-ALBUTEROL 3 ML NEB INHALATION SCH ×5 (04:29→20:43)
[2018-09-05 05:41] LABS: Glucose,Whole Blood 212 mg/dL (75-99)
[2018-09-05] MEDS: INSULIN ASPART 100 UNIT/ML 1 ML 10 ML VIAL SQ SCH ×4 (06:46→21:25)
[2018-09-05] MEDS: glipiZIDE 5 MG TAB PO SCH ×2 (06:47→17:06)
[2018-09-05] MEDS: MIDODRINE 5 MG TAB PO SCH ×3 (06:47→17:06)
[2018-09-05] MEDS: PANTOPRAZOLE 40 MG TABLET PO SCH (06:47)
[2018-09-05 07:01] LABS: Basophils % (A) 0 %; Eosinophils # (A) 0.1 k/uL (0-0.7); Eosinophils % (A) 1 %; HCT 41.8 % (39.0-53.0); HGB 14.3 gm/dL (13.0-17.5); Lymphocytes # (A) 0.9 k/uL (1.0-4.8); Lymphocytes % (A) 9 %; MCH 30.1 pg (25.0-35.0); MCHC 34.2 g/dL (31.0-37.0); MCV 87.9 fL (80.0-100.0); Mean Platelet Volume 6.5; Monocytes # (A) 0.4 k/uL (0-1.0); Monocytes % (A) 4 %; Neutrophils # (A) 9.2 k/uL (1.3-7.7); Neutrophils % (A) 86 %; Platelet Count 217 k/uL (150-450); RBC 4.75 m/uL (4.30-5.90); RDW 13.5 % (11.5-15.5); WBC 10.6 k/uL (3.8-10.6)
[2018-09-05 07:08] LABS: ALT 31 U/L (21-72); AST 17 U/L (17-59); Alkaline Phosphatase 45 U/L (38-126); Anion Gap 4 mmol/L; Blood Urea Nitrogen 17 mg/dL (9-20); Calcium 8.9 mg/dL (8.4-10.2); Carbon Dioxide 29 mmol/L (22-30); Chloride 101 mmol/L (98-107); Glucose 229 mg/dL (74-99); Potassium 4.5 mmol/L (3.5-5.1); Sodium 134 mmol/L (137-145); Total Bilirubin 0.7 mg/dL (0.2-1.3); Total Protein 5.7 g/dL (6.3-8.2)
[2018-09-05] MEDS: SYMBICORT 160-4.5 MCG INHALER INHALATION SCH ×2 (08:15→20:45)
[2018-09-05] MEDS: ISOSORBIDE MONONITRATE ER 60 MG TAB.ER.24H PO SCH (08:58)
[2018-09-05] MEDS: APIXABAN 2.5 MG TABLET PO SCH ×2 (08:58→21:26)
[2018-09-05] MEDS: POTASSIUM CHLORIDE ER 20 MEQ TAB.ER PO SCH (08:58)
[2018-09-05] MEDS: LEVOFLOXACIN 500 MG TAB PO SCH (08:58)
[2018-09-05] MEDS: DIGOXIN 250 MCG TAB PO SCH (08:58)
[2018-09-05] MEDS: METOPROLOL SUCCINATE (ER) 100 MG TAB.ER.24H PO SCH (08:58)
[2018-09-05] MEDS: levETIRAcetam 500 MG TAB PO SCH ×2 (08:58→21:24)
[2018-09-05] MEDS: AMIODARONE 200 MG TAB PO SCH ×2 (08:59→21:25)
[2018-09-05] MEDS: CLOPIDOGREL 75 MG TAB PO SCH (08:59)
[2018-09-05] MEDS: guaiFENesin 600 MG TABLET.ER PO SCH ×2 (08:59→21:25)
[2018-09-05] MEDS: methylPREDNISolone SOD SUCCI 40 MG/ML 1 ML VIAL IV SCH (09:01)
--- NOTE | 2018-09-05 09:28 | P.PN ---
Subjective Progress Note Date: 09/05/18 Principal diagnosis: Acute COPD exacerbation, tracheobronchitis, chronic persistent severe asthma, obstructive sleep apnea, congestive heart failure likely acute diastolic heart failure related to atrial fibrillation and rapid ventricular response, morbid obesity, coronary artery disease 09/05/2018, patient seen eval reexamined during on's breathing comfortably still have ongoing intermittent cough congestion however severity has improved patient remains on sinus rhythm labs reviewed medications reviewed we'll change IV steroids to oral prednisone now 09/04/2018, patient seen eval examined doing well awake and alert cough congestion has been stable and improved breathing more comfortably no obvious distress present labs reviewed medications reviewed no more episodes of A. fib with RVR noted, patient remains in sinus rhythm 09/03/2018, patient seen eval examined during the rounds clinically has been doing better breathing more comfortably denies any chest pain cough congestion is improved, patient is status post cardioversion and MAL, respiratory status has improved patient can be switched to oral prednisone and antibiotics can be discharged home from pulmonary standpoint with follow-up in outpatient setting 09/02/2018, patient seen eval examined during the rounds care plan discussed with cardiovascular services as well patient is scheduled for MAL and cardioversion as well from [facility] standpoint overall remains stable still have intermittent episodes of cough congestion and shortness of breath breathing treatment appears to be helping however patient does go into intermittent episodes of A. fib with rapid ventricular response 09/01/2018, patient seen eval reexamined during the rounds continue to have intermittent episodes of atrial fibrillation with rapid ventricular response patient has been having intermittent episodes of respiratory distress requiring breathing treatment he remains on antibiotics and steroids has been tapered down , patient is being followed by cardiovascular services 08/31/2018, patient seen eval examined during the rounds clinically has been doing slightly better in terms of breathing but is still of ongoing cough congestion and shortness of breath and wheezing, severity has improved, patient continued to have the episodes of A. fib with rapid ventricular response, patient has been on IV amiodarone as per cardiovascular services, recent echo failed to reveal a worsening of ejection fraction remains stable 60-65%, labs are improved, white cell count continue to improve as well, we'll start tapering down the steroids continue antibiotics recent chest x-ray reviewed 08/30/2018, patient seen eval examined during the rounds clinically has been doing slightly better cough congestion shortness breath is improved but is still have ongoing respiratory symptoms heart rate remained stable, but is still have intermittent episodes of tachycardia, patient remains afebrile, white cell count have gone up likely related to high-dose IV steroids labs reviewed medications reviewed 78-year-old male with history of end-stage lung disease agrees severe COPD emphysema also history of chronic persistent ALLERGIC asthma, patient was brought in the emergency department by the EMS due to severe shortness of breath palpitation, patient symptoms started about 2 days prior to coming into the hospital associated with increased cough congestion patient does have the rapid atrial fibrillation arrival, he does have history of coronary artery disease with 4 stents to were pleased in this institute and 2 were presented history of [place], patient spontaneously converted back to sinus rhythm cardiovascular services has been evaluating this patient as well he still complaining of cough congestion shortness of breath, currently patient is being treated with his home medications, , IV Cardizem as been initiated which is being discontinued, patient is being treated with broad-spectrum antibiotics bronchodilators and steroid, chest x-ray failed to reveal any active infiltrate but however consistent with COPD Objective - Vital Signs Vital signs: Vital Signs Temp 97.4 F L 09/05/18 08:45 Pulse 71 09/05/18 08:45 Resp 20 09/05/18 08:45 BP 155/71 09/05/18 08:45 Pulse Ox 94 L 09/05/18 08:45 Intake & Output 09/04/18 09/05/18 09/05/18 18:59 06:59 18:59 Intake Total 1080 Output Total 900 Balance 180 Weight 86.6 kg 87.3 kg Intake: Oral 1080 Output: Urine 900 Other: Voiding Method Urinal Urinal # Voids 2 1 - Exam Constitutional General appearance: average body habitus, cooperative, disheveled, mild distress , obese - EENT Eyes: EOMI, PERRLA, poor dentition, normal appearance Ears: bilateral: normal - Neck Carotids: bilateral: upstroke normal, bruit absent Thyroid: bilateral: normal size - Respiratory Respiratory: bilateral: diminished, rhonchi, wheezing, prolonged expiration, negative: CTA, dullness, rales, prolonged inspiration - Cardiovascular Rhythm: regular Heart sounds: normal: S1, S2 - Gastrointestinal General gastrointestinal: absent bowel sounds - Neurologic Neurologic: CNII-XII intact - Musculoskeletal Musculoskeletal: gait normal, generalized weakness, strength equal bilaterally - Psychiatric Psychiatric: A&O x's 3, appropriate affect, intact judgment & insight - Labs CBC & Chem 7: 09/05/18 06:27 09/05/18 06:27 Labs: Abnormal Lab Results - Last 24 Hours (Table) 09/04/18 09/04/18 09/04/18 Range/Units 11:11 16:28 21:29 Neutrophils # (1.3-7.7) k/uL Lymphocytes # (1.0-4.8) k/uL Sodium (137-145) mmol/L Glucose (74-99) mg/dL POC Glucose (mg/dL) 222 H 257 H 234 H (75-99) mg/dL Total Protein (6.3-8.2) g/dL Albumin (3.5-5.0) g/dL 09/05/18 09/05/18 09/05/18 Range/Units 05:39 06:27 06:27 Neutrophils # 9.2 H (1.3-7.7) k/uL Lymphocytes # 0.9 L (1.0-4.8) k/uL Sodium 134 L (137-145) mmol/L Glucose 229 H (74-99) mg/dL POC Glucose (mg/dL) 212 H (75-99) mg/dL Total Protein 5.7 L (6.3-8.2) g/dL Albumin 3.0 L (3.5-5.0) g/dL Microbiology - Last 24 Hours (Table) 09/03/18 00:26 Gram Stain - Preliminary Sputum Sputum Culture - Preliminary Palak albicans Assessment and Plan Assessment: Acute purulent tracheobronchitis Atrial fibrillation with rapid ventricular response, status post MAL and cardioversion responded well Acute COPD exacerbation Hyperglycemia related to high-dose IV steroids Diabetes Chronic persistent severe asthma with component of ALLERGIC asthma Coronary artery disease with history of multiple stent placement in the past Sleep disorder breathing and sleep apnea Obesity Plan: MAL and cardioversion Broad-spectrum antibiotics Gentle rehydration Bronchodilators IV steroids, would taper slowly, for now we'll change it to oral Continue anticoagulation Continue home medications Repeat chest x-ray reviewed overall changes remains stable Further recommendations pending plan of care as per clinical response of the patient Time with Patient: Greater than 30
--- NOTE | 2018-09-05 11:42 | P.PN ---
Subjective Progress Note Date: 09/05/18 Sid Diaz is an 78-year-old male who presented to [facility] emergency room with a chief complaint of worsening shortness of breath he was evaluated in emergency room and had evidence of atrial fibrillation with rapid ventricular response he also had evidence of acute bronchitis, COPD exacerbation , he was hypotensive in the emergency room he was given IV fluid boluses, he was started on IV Cardizem drip, he was started on Levaquin for antibiotic he was also started on IV Solu-Medrol and inhaled bronchodilators he was admitted to telemetry floor for further evaluation and treatment cardiology consultation and pulmonary consultation were requested. Patient was recently admitted to [facility] with similar complaints he received antibiotics and IV steroids and was discharged home on , patient took oral antibiotic and oral steroids at home and was doing better however in the last 2-3 days his condition started to worsen. On 08/29/2018 patient was seen and examined on the telemetry floor he is alert and oriented 3 in no apparent distress he is still complaining of shortness of breath and cough otherwise he denies any complaints there is no fever or chills no headache or dizziness no chest pain no nausea or vomiting no abdominal pain and no urinary symptoms. 08/30/2018 patient sitting up in bed comfortably. Still having some wheezing and shortness of breath. Remains in atrial fibrillation with episodes of tachycardia requiring Cardizem drip. Patient denies any chest pain. Denies any nausea or vomiting. Reports having bowel movements. Denies any difficulty urinating. Patient has been having hyperglycemia secondary to steroids. Has required extra insulin. Last blood sugar was 239. 08/31/2018 patient had atrial fibrillation with rapid ventricular response yesterday requiring to be placed on IV amiodarone. Cardiology is planning to switch over to oral amiodarone later today. Echo shows an EF of 60-65%. Patient is still having some wheezing and shortness of breath. White count has decreased from 20.9 pound 15.7. Chest x-ray showed no evidence of pneumonia. Sodium level has gone up from 132-134. Cardiology is checking orthostatic blood pressures every shift. Patient denies any chest pain and heart palpitations. Denies any nausea or vomiting. Reports having bowel movements. Denies any difficulty urinating On 09/01/2018 patient was seen and examined on the telemetry floor he is alert and oriented 3 in no apparent distress heart rate is better controlled today he is off amiodarone drip cardiology are planning for MAL tomorrow. Clinically patient is doing better there is no fever or chills no headache or dizziness no chest pain patient still has shortness of breath with activity he has occasional cough there is no nausea or vomiting no abdominal pain no diarrhea and no urinary symptoms 09/02/2018 patient underwent MAL and cardioversion today. He is currently in sinus rhythm. MAL showed no thrombus and did show moderate mitral regurgitation. Pulmonary is decreasing the IV Solu-Medrol. Blood sugars are better controlled. Patient denies chest pain or shortness breath. Doesn't report improvement in his cough. Reports improvement in his energy level. No bowel movement 2 days. Denies any burning with urination. 09/03/2018 patient remains in normal sinus rhythm. Cardiology has cleared patient for discharge. He is still having a congestive cough. Sputum was collected today. Will add Mucinex. Encouraged patient to increase activity. Patient denies any chest pain. Reports that he is feeling better. Denies any nausea or vomiting. Reports having bowel movements. Denies any difficulty urinating. White count improved from 14.1-8.3 sodium 134 down to 131 09/04/2018 patient was seen and examined on the telemetry floor, he is alert and oriented x3, Sputum culture pending. Encouraged patient to increase activity. There is no fever or chills no headache or dizziness no chest pain there is shortness of breath with activity and occasional cough no nausea or vomiting no abdominal pain no diarrhea and no urinary symptoms. On 09/05/2018 patient was seen and examined he is alert and oriented 3 in no apparent distress, still complaining of cough still having shortness of breath with activity otherwise no complaints there is no fever or chills no headache or dizziness no chest pain no nausea or vomiting no abdominal pain no diarrhea and no urinary symptoms, sputum culture significant only for Palak albicans Objective - Vital Signs Vital signs: Vital Signs Temp 97.4 F L 09/05/18 08:45 Pulse 71 09/05/18 08:45 Resp 20 09/05/18 08:45 BP 155/71 09/05/18 08:45 Pulse Ox 94 L 09/05/18 08:45 Intake & Output 09/04/18 09/05/18 09/05/18 18:59 06:59 18:59 Intake Total 1080 Output Total 900 Balance 180 Weight 86.6 kg 87.3 kg Intake: Oral 1080 Output: Urine 900 Other: Voiding Method Urinal Urinal Urinal # Voids 2 1 1 - Exam In general patient is alert and oriented 3 in no apparent distress HEENT head normocephalic and atraumatic Neck is supple no JVD no goiter no lymphadenopathy Chest exam reveals few crackles in both lung villarreal with wheezing Cardiac exam reveals irregular heart sounds S1 and S2 with tachycardia no gallops no murmurs Abdomen is soft nontender no organomegaly with normal bowel sounds Extremity exam reveals no edema no cyanosis or clubbing Neurological examination reveals no gross focal deficit - Labs CBC & Chem 7: 09/05/18 06:27 09/05/18 06:27 Labs: Abnormal Lab Results - Last 24 Hours (Table) 09/04/18 09/04/18 09/04/18 Range/Units 11:11 16:28 21:29 Neutrophils # (1.3-7.7) k/uL Lymphocytes # (1.0-4.8) k/uL Sodium (137-145) mmol/L Glucose (74-99) mg/dL POC Glucose (mg/dL) 222 H 257 H 234 H (75-99) mg/dL Total Protein (6.3-8.2) g/dL Albumin (3.5-5.0) g/dL 09/05/18 09/05/18 09/05/18 Range/Units 05:39 06:27 06:27 Neutrophils # 9.2 H (1.3-7.7) k/uL Lymphocytes # 0.9 L (1.0-4.8) k/uL Sodium 134 L (137-145) mmol/L Glucose 229 H (74-99) mg/dL POC Glucose (mg/dL) 212 H (75-99) mg/dL Total Protein 5.7 L (6.3-8.2) g/dL Albumin 3.0 L (3.5-5.0) g/dL Microbiology - Last 24 Hours (Table) 09/03/18 00:26 Gram Stain - Final Sputum Sputum Culture - Final Palak albicans Assessment and Plan Plan: #1 acute purulent bronchitis : Continue Levaquin. Sputum culture pending #2 acute exacerbation of chronic obstructive pulmonary disease : Followed by pulmonary. Tapering down the IV steroids. Continue bronchodilators. #3 paroxysmal atrial fibrillation with atrial fibrillation and rapid ventricular response: Patient status post cardioversion . Patient remains in sinus rhythm. Continue oral amiodarone , digoxin and metoprolol. Continue Eliquis for anticoagulation #4 underlying history of coronary artery disease with previous stent placement, no chest pain at this time #5 underlying history of prostate cancer. #6 underlying history of hyperlipidemia #7 acute on chronic hypoxic respiratory failure requiring home oxygen use #8 leukocytosis secondary to steroids. Improved #9 diabetes mellitus type 2 : A1c 9.2 continue Lantus and sliding scale. Continue glipizide 5 g twice a day. hyperglycemia secondary to steroids. #10 hyponatremia: Sodium has improved from 132-134. Patient did get a dose of IV Lasix in the ER. Continue to monitor For GI prophylaxis patient is maintained on Protonix for DVT prophylaxis patient is maintained on Eliquis Plan Consult physical therapy. Encouraged patient to increase activity. Continue was current management plan for discharge to home tomorrow if stable
[2018-09-05 11:57] LABS: Glucose,Whole Blood 177 mg/dL (75-99)
[2018-09-05] MEDS: MULTIVITAMINS, THERA 1 EACH TAB PO SCH (12:29)
[2018-09-05 16:43] LABS: Glucose,Whole Blood 213 mg/dL (75-99)
[2018-09-05] MEDS: LISINOPRIL 2.5 MG TAB PO SCH (17:06)
[2018-09-05] MEDS: SODIUM CHLORIDE 0.9% 1,000 ML IV SCH (20:26)
[2018-09-05 20:38] LABS: Glucose,Whole Blood 271 mg/dL (75-99)
[2018-09-05 20:45] VITALS: RESP 18
[2018-09-05] MEDS: INSULIN DETEMIR 100 UNIT/ML 10 ML VIAL SQ SCH (21:25)
[2018-09-05] MEDS: ATORVASTATIN 10 MG TAB PO SCH (21:25)
[2018-09-05] MEDS: MONTELUKAST 10 MG TAB PO SCH (21:25)
[2018-09-06] MEDS: IPRATROPIUM-ALBUTEROL 3 ML NEB INHALATION SCH ×4 (00:15→11:10)
[2018-09-06 05:44] LABS: Glucose,Whole Blood 163 mg/dL (75-99)
[2018-09-06] MEDS: INSULIN ASPART 100 UNIT/ML 1 ML 10 ML VIAL SQ SCH (06:49)
[2018-09-06] MEDS: glipiZIDE 5 MG TAB PO SCH (06:49)
[2018-09-06] MEDS: MIDODRINE 5 MG TAB PO SCH ×2 (06:49→06:53)
[2018-09-06] MEDS: PANTOPRAZOLE 40 MG TABLET PO SCH (06:49)
[2018-09-06 07:44] LABS: Basophils % (A) 0 %; Eosinophils % (A) 0 %; HCT 41.6 % (39.0-53.0); Lymphocytes # (A) 1.5 k/uL (1.0-4.8); Lymphocytes % (A) 17 %; MCH 29.2 pg (25.0-35.0); MCHC 33.7 g/dL (31.0-37.0); MCV 86.8 fL (80.0-100.0); Mean Platelet Volume 6.5; Monocytes # (A) 0.5 k/uL (0-1.0); Monocytes % (A) 5 %; Neutrophils # (A) 6.5 k/uL (1.3-7.7); Neutrophils % (A) 76 %; Platelet Count 211 k/uL (150-450); RDW 13.5 % (11.5-15.5); WBC 8.5 k/uL (3.8-10.6)
[2018-09-06 07:52] LABS: ALT 33 U/L (21-72); AST 16 U/L (17-59); Albumin 2.8 g/dL (3.5-5.0); Alkaline Phosphatase 41 U/L (38-126); Anion Gap 4 mmol/L; Blood Urea Nitrogen 17 mg/dL (9-20); Calcium 8.6 mg/dL (8.4-10.2); Carbon Dioxide 31 mmol/L (22-30); Chloride 101 mmol/L (98-107); Glucose 153 mg/dL (74-99); Potassium 4.4 mmol/L (3.5-5.1); Sodium 136 mmol/L (137-145); Total Bilirubin 0.5 mg/dL (0.2-1.3); Total Protein 5.3 g/dL (6.3-8.2)
[2018-09-06] MEDS: SYMBICORT 160-4.5 MCG INHALER INHALATION SCH (07:56)
[2018-09-06] MEDS ORDERED: predniSONE 20 MG TAB PO SCH (09:00)
[2018-09-06] MEDS: AMIODARONE 200 MG TAB PO SCH (09:50)
[2018-09-06] MEDS: METOPROLOL SUCCINATE (ER) 100 MG TAB.ER.24H PO SCH (09:50)
[2018-09-06] MEDS: guaiFENesin 600 MG TABLET.ER PO SCH (09:51)
[2018-09-06] MEDS: DIGOXIN 250 MCG TAB PO SCH (09:51)
[2018-09-06] MEDS: levETIRAcetam 500 MG TAB PO SCH (09:51)
[2018-09-06] MEDS: POTASSIUM CHLORIDE ER 20 MEQ TAB.ER PO SCH (09:51)
[2018-09-06] MEDS: APIXABAN 2.5 MG TABLET PO SCH (09:51)
[2018-09-06] MEDS: ISOSORBIDE MONONITRATE ER 60 MG TAB.ER.24H PO SCH (09:51)
[2018-09-06] MEDS: CLOPIDOGREL 75 MG TAB PO SCH (09:51)
[2018-09-06 11:24] VITALS: BP 129/61; TEMP 97.6
[2018-09-06 11:26] VITALS: PULSE 60
[2018-09-06 11:31] LABS: Glucose,Whole Blood 117 mg/dL (75-99)
--- NOTE | 2018-09-06 12:24 | P.DS ---
Providers Date of admission: 08/28/18 13:22 Expected date of discharge: 09/06/18 Attending physician: Florian Rdz Consults: 08/28/18 13:24 Consult Physician Routine Consulting Provider: Mook Ceballos Consult Reason/Comments: Rapid atrial fibrillation Do you want consulting provider notified?: Yes 08/28/18 15:56 Consult Physician Routine Consulting Provider: Santana Stanley Consult Reason/Comments: COPD Do you want consulting provider notified?: Yes Primary care physician: [facility] Course: Discharge diagnosis #1 acute purulent bronchitis : Sputum culture grew Palak albicans. Patient completed Levaquin during his hospitalization #2 acute exacerbation of chronic obstructive pulmonary disease : Continue prednisone taper and bronchodilators #3 paroxysmal atrial fibrillation with atrial fibrillation and rapid ventricular response: Patient status post cardioversion . Patient remains in sinus rhythm. Continue oral amiodarone , digoxin and metoprolol. Continue Eliquis for anticoagulation #4 underlying history of coronary artery disease with previous stent placement, no chest pain at this time #5 underlying history of prostate cancer. #6 underlying history of hyperlipidemia #7 acute on chronic hypoxic respiratory failure requiring home oxygen use #8 leukocytosis secondary to steroids. Improved #9 diabetes mellitus type 2 : A1c 9.2 #10 continue home dose of glipizide hyponatremia: Sodium has improved from 132- 136. Patient did get a dose of IV Lasix in the ER. Hospital course Sid Diaz is an 78-year-old male who presented to [facility] emergency room with a chief complaint of worsening shortness of breath he was evaluated in emergency room and had evidence of atrial fibrillation with rapid ventricular response he also had evidence of acute bronchitis, COPD exacerbation , he was hypotensive in the emergency room he was given IV fluid boluses, he was started on IV Cardizem drip, he was started on Levaquin for antibiotic he was also started on IV Solu-Medrol and inhaled bronchodilators he was admitted to telemetry floor for further evaluation and treatment cardiology consultation and pulmonary consultation were requested. Patient was recently admitted to [facility] with similar complaints he received antibiotics and IV steroids and was discharged home on , patient took oral antibiotic and oral steroids at home and was doing better however in the last 2-3 days his condition started to worsen. On 08/29/2018 patient was seen and examined on the telemetry floor he is alert and oriented 3 in no apparent distress he is still complaining of shortness of breath and cough otherwise he denies any complaints there is no fever or chills no headache or dizziness no chest pain no nausea or vomiting no abdominal pain and no urinary symptoms. 08/30/2018 patient sitting up in bed comfortably. Still having some wheezing and shortness of breath. Remains in atrial fibrillation with episodes of tachycardia requiring Cardizem drip. Patient denies any chest pain. Denies any nausea or vomiting. Reports having bowel movements. Denies any difficulty urinating. Patient has been having hyperglycemia secondary to steroids. Has required extra insulin. Last blood sugar was 239. 08/31/2018 patient had atrial fibrillation with rapid ventricular response yesterday requiring to be placed on IV amiodarone. Cardiology is planning to switch over to oral amiodarone later today. Echo shows an EF of 60-65%. Patient is still having some wheezing and shortness of breath. White count has decreased from 20.9 pound 15.7. Chest x-ray showed no evidence of pneumonia. Sodium level has gone up from 132-134. Cardiology is checking orthostatic blood pressures every shift. Patient denies any chest pain and heart palpitations. Denies any nausea or vomiting. Reports having bowel movements. Denies any difficulty urinating On 09/01/2018 patient was seen and examined on the telemetry floor he is alert and oriented 3 in no apparent distress heart rate is better controlled today he is off amiodarone drip cardiology are planning for MAL tomorrow. Clinically patient is doing better there is no fever or chills no headache or dizziness no chest pain patient still has shortness of breath with activity he has occasional cough there is no nausea or vomiting no abdominal pain no diarrhea and no urinary symptoms 09/02/2018 patient underwent MAL and cardioversion today. He is currently in sinus rhythm. MAL showed no thrombus and did show moderate mitral regurgitation. Pulmonary is decreasing the IV Solu-Medrol. Blood sugars are better controlled. Patient denies chest pain or shortness breath. Doesn't report improvement in his cough. Reports improvement in his energy level. No bowel movement 2 days. Denies any burning with urination. 09/03/2018 patient remains in normal sinus rhythm. Cardiology has cleared patient for discharge. He is still having a congestive cough. Sputum was collected today. Will add Mucinex. Encouraged patient to increase activity. Patient denies any chest pain. Reports that he is feeling better. Denies any nausea or vomiting. Reports having bowel movements. Denies any difficulty urinating. White count improved from 14.1-8.3 sodium 134 down to 131 09/04/2018 patient was seen and examined on the telemetry floor, he is alert and oriented x3, Sputum culture pending. Encouraged patient to increase activity. There is no fever or chills no headache or dizziness no chest pain there is shortness of breath with activity and occasional cough no nausea or vomiting no abdominal pain no diarrhea and no urinary symptoms. On 09/05/2018 patient was seen and examined he is alert and oriented 3 in no apparent distress, still complaining of cough still having shortness of breath with activity otherwise no complaints there is no fever or chills no headache or dizziness no chest pain no nausea or vomiting no abdominal pain no diarrhea and no urinary symptoms, sputum culture significant only for Palak albicans 09/06/2018 patient's shortness of breath and cough have improved greatly. He is medical stable for discharge. He's been cleared by consulting physicians for discharge. Patient remains in sinus rhythm. Case discussed with cardiology the recommending amiodarone 400 mg twice a day for one week then decreased 200 mg 3 times a day. Patient will follow-up with cardiology and pulmonary service in the office. Is followed with Dr. Rdz in 1 week. I performed an examination of the patient and discussed their management with the physician Deicer Kit Assembler. I have reviewed the Physician Deicer Kit Assembler's notes and agree with the documented findings and plan of care Patient Condition at Discharge: Stable Plan - Discharge Summary Discharge Rx Participant: No New Discharge Prescriptions: New Digoxin [Lanoxin] 250 mcg PO DAILY #30 tab glipiZIDE [Glucotrol] 5 mg PO AC-TID tab guaiFENesin [Mucinex] 600 mg PO Q12HR #6 tablet.er Midodrine [ProAmatine] 2.5 mg PO AC-TID #90 tab predniSONE 10 mg PO DIRECTED #30 tab Amiodarone [Cordarone] 400 mg PO BID #90 tab Continue Lisinopril [Zestril] 2.5 mg PO W/SUPPER Montelukast Sodium [Singulair] 10 mg PO HS Nitroglycerin Sl Tabs [Nitrostat] 0.4 mg SUBLINGUAL Q5M PRN PRN Reason: Pain Albuterol Sulfate [Proair Hfa] 2 puff INHALATION RT-Q6H PRN PRN Reason: Shortness Of Breath Clopidogrel [Plavix] 75 mg PO DAILY Omeprazole [PriLOSEC] 20 mg PO DAILY Multivitamins, Thera [Multivitamin (formulary)] 1 tab PO DAILY Fluticasone/Salmeterol [Advair 500-50 Diskus] 1 puff INHALATION RT-BID Isosorbide Mononitrate ER [Imdur] 60 mg PO DAILY tab.er.24h levETIRAcetam [Keppra] 500 mg PO Q12HR Potassium Chloride ER [K-Dur 20] 20 meq PO DAILY Metoprolol Succinate (ER) [Toprol XL] 100 mg PO DAILY Simvastatin [Zocor] 20 mg PO HS Apixaban [Eliquis] 2.5 mg PO BID Discontinued Aspirin [[place] Aspirin EC] 81 mg PO DAILY Levofloxacin [Levaquin] 500 mg PO DAILY Diltiazem HCl [Diltiazem 24Hr ER] 180 mg PO Q24H Discharge Medication List Albuterol Sulfate [Proair Hfa] 2 puff INHALATION RT-Q6H PRN 01/11/14 [History] Clopidogrel [Plavix] 75 mg PO DAILY 01/11/14 [History] Lisinopril [Zestril] 2.5 mg PO W/SUPPER 01/11/14 [History] Montelukast Sodium [Singulair] 10 mg PO HS 01/11/14 [History] Multivitamins, Thera [Multivitamin (formulary)] 1 tab PO DAILY 01/11/14 [History ] Nitroglycerin Sl Tabs [Nitrostat] 0.4 mg SUBLINGUAL Q5M PRN 01/11/14 [History] Omeprazole [PriLOSEC] 20 mg PO DAILY 01/11/14 [History] Fluticasone/Salmeterol [Advair 500-50 Diskus] 1 puff INHALATION RT-BID 03/28/15 [History] Isosorbide Mononitrate ER [Imdur] 60 mg PO DAILY tab.er.24h 08/05/17 [Rx] Potassium Chloride ER [K-Dur 20] 20 meq PO DAILY 06/27/18 [History] levETIRAcetam [Keppra] 500 mg PO Q12HR 06/27/18 [History] Metoprolol Succinate (ER) [Toprol XL] 100 mg PO DAILY 08/14/18 [History] Simvastatin [Zocor] 20 mg PO HS 08/14/18 [History] Apixaban [Eliquis] 2.5 mg PO BID 08/28/18 [History] Amiodarone [Cordarone] 400 mg PO BID #90 tab 09/06/18 [Rx] Digoxin [Lanoxin] 250 mcg PO DAILY #30 tab 09/06/18 [Rx] Midodrine [ProAmatine] 2.5 mg PO AC-TID #90 tab 09/06/18 [Rx] glipiZIDE [Glucotrol] 5 mg PO AC-TID tab 09/06/18 [Rx] guaiFENesin [Mucinex] 600 mg PO Q12HR #6 tablet.er 09/06/18 [Rx] predniSONE 10 mg PO DIRECTED #30 tab 09/06/18 [Rx] Follow up Appointment(s)/Referral(s): [facility] [NON-STAFF] - Florian Rdz MD [Primary Care Provider] - 09/07/18 9:30 am (Thursday) Santana Stanley MD [STAFF PHYSICIAN] - 09/17/18 10:30 am (Thursday) Drake Arriaga MD [STAFF PHYSICIAN] - 09/09/18 10:45 am () Patient Instructions/Handouts: A-fib (Atrial Fibrillation) (DC), Transesophageal Echocardiogram (DC), Heart Healthy Diet (DC), COPD (Chronic Obstructive Pulmonary Disease) (DC), Cardioversion (DC) Activity/Diet/Wound Care/Special Instructions: Diet: diabetic, cardiac Activity: as tolerated Discharge Disposition: HOME WITH HOME HEALTH SERVICES
--- NOTE | 2018-09-06 12:55 | P.PN ---
Subjective Progress Note Date: 09/06/18 Principal diagnosis: Acute COPD exacerbation, tracheobronchitis, chronic persistent severe asthma, obstructive sleep apnea, congestive heart failure likely acute diastolic heart failure related to atrial fibrillation and rapid ventricular response, morbid obesity, coronary artery disease 09/06/2018, patient seen eval reexamined during the rounds the, respiratory standpoint doing well cuff congestion shortness breath is improved patient is being evaluated for possible discharge, patient can finish oral antibiotics and prednisone her outpatient setting for follow 09/05/2018, patient seen eval reexamined during on's breathing comfortably still have ongoing intermittent cough congestion however severity has improved patient remains on sinus rhythm labs reviewed medications reviewed we'll change IV steroids to oral prednisone now 09/04/2018, patient seen eval examined doing well awake and alert cough congestion has been stable and improved breathing more comfortably no obvious distress present labs reviewed medications reviewed no more episodes of A. fib with RVR noted, patient remains in sinus rhythm 09/03/2018, patient seen eval examined during the rounds clinically has been doing better breathing more comfortably denies any chest pain cough congestion is improved, patient is status post cardioversion and MAL, respiratory status has improved patient can be switched to oral prednisone and antibiotics can be discharged home from pulmonary standpoint with follow-up in outpatient setting 09/02/2018, patient seen eval examined during the rounds care plan discussed with cardiovascular services as well patient is scheduled for MAL and cardioversion as well from [facility] standpoint overall remains stable still have intermittent episodes of cough congestion and shortness of breath breathing treatment appears to be helping however patient does go into intermittent episodes of A. fib with rapid ventricular response 09/01/2018, patient seen eval reexamined during the rounds continue to have intermittent episodes of atrial fibrillation with rapid ventricular response patient has been having intermittent episodes of respiratory distress requiring breathing treatment he remains on antibiotics and steroids has been tapered down , patient is being followed by cardiovascular services 08/31/2018, patient seen eval examined during the rounds clinically has been doing slightly better in terms of breathing but is still of ongoing cough congestion and shortness of breath and wheezing, severity has improved, patient continued to have the episodes of A. fib with rapid ventricular response, patient has been on IV amiodarone as per cardiovascular services, recent echo failed to reveal a worsening of ejection fraction remains stable 60-65%, labs are improved, white cell count continue to improve as well, we'll start tapering down the steroids continue antibiotics recent chest x-ray reviewed 08/30/2018, patient seen eval examined during the rounds clinically has been doing slightly better cough congestion shortness breath is improved but is still have ongoing respiratory symptoms heart rate remained stable, but is still have intermittent episodes of tachycardia, patient remains afebrile, white cell count have gone up likely related to high-dose IV steroids labs reviewed medications reviewed 78-year-old male with history of end-stage lung disease agrees severe COPD emphysema also history of chronic persistent ALLERGIC asthma, patient was brought in the emergency department by the EMS due to severe shortness of breath palpitation, patient symptoms started about 2 days prior to coming into the hospital associated with increased cough congestion patient does have the rapid atrial fibrillation arrival, he does have history of coronary artery disease with 4 stents to were pleased in this institute and 2 were presented history of [place], patient spontaneously converted back to sinus rhythm cardiovascular services has been evaluating this patient as well he still complaining of cough congestion shortness of breath, currently patient is being treated with his home medications, , IV Cardizem as been initiated which is being discontinued, patient is being treated with broad-spectrum antibiotics bronchodilators and steroid, chest x-ray failed to reveal any active infiltrate but however consistent with COPD Objective - Vital Signs Vital signs: Vital Signs Temp 97.6 F 09/06/18 08:55 Pulse 60 09/06/18 11:26 Resp 18 09/06/18 08:55 BP 129/61 09/06/18 08:55 Pulse Ox 94 L 09/06/18 08:55 Intake & Output 09/05/18 09/06/18 09/06/18 18:59 06:59 18:59 Intake Total 1440 960 Balance 1440 960 Weight 86.2 kg Intake: Intake, IV Titration 0 Amount Sodium Chloride 0.9% 1, 0 000 ml @ 20 mls/hr IV . Q24H [facility] Rx#:[id number] Oral 1440 960 Other: Voiding Method Urinal Urinal # Voids 2 1 3 - Exam Constitutional General appearance: average body habitus, cooperative, disheveled, mild distress , obese - EENT Eyes: EOMI, PERRLA, poor dentition, normal appearance Ears: bilateral: normal - Neck Carotids: bilateral: upstroke normal, bruit absent Thyroid: bilateral: normal size - Respiratory Respiratory: bilateral: diminished, rhonchi, wheezing, prolonged expiration, negative: CTA, dullness, rales, prolonged inspiration - Cardiovascular Rhythm: regular Heart sounds: normal: S1, S2 - Gastrointestinal General gastrointestinal: absent bowel sounds - Neurologic Neurologic: CNII-XII intact - Musculoskeletal Musculoskeletal: gait normal, generalized weakness, strength equal bilaterally - Psychiatric Psychiatric: A&O x's 3, appropriate affect, intact judgment & insight - Labs CBC & Chem 7: 09/06/18 07:05 09/06/18 07:05 Labs: Abnormal Lab Results - Last 24 Hours (Table) 09/05/18 09/05/18 09/06/18 Range/Units 16:29 20:35 05:42 Sodium (137-145) mmol/L Carbon Dioxide (22-30) mmol/L Glucose (74-99) mg/dL POC Glucose (mg/dL) 213 H 271 H 163 H (75-99) mg/dL AST (17-59) U/L Total Protein (6.3-8.2) g/dL Albumin (3.5-5.0) g/dL 09/06/18 09/06/18 Range/Units 07:05 11:31 Sodium 136 L (137-145) mmol/L Carbon Dioxide 31 H (22-30) mmol/L Glucose 153 H (74-99) mg/dL POC Glucose (mg/dL) 117 H (75-99) mg/dL AST 16 L (17-59) U/L Total Protein 5.3 L (6.3-8.2) g/dL Albumin 2.8 L (3.5-5.0) g/dL Microbiology - Last 24 Hours (Table) 09/03/18 00:26 Gram Stain - Final Sputum Sputum Culture - Final Palak albicans Assessment and Plan Assessment: Acute purulent tracheobronchitis Atrial fibrillation with rapid ventricular response, status post MAL and cardioversion responded well Acute COPD exacerbation Hyperglycemia related to high-dose IV steroids Diabetes Chronic persistent severe asthma with component of ALLERGIC asthma Coronary artery disease with history of multiple stent placement in the past Sleep disorder breathing and sleep apnea Obesity Plan: MAL and cardioversion Broad-spectrum antibiotics Gentle rehydration Bronchodilators IV steroids, would taper slowly, for now we'll change it to oral Continue anticoagulation Continue home medications Repeat chest x-ray reviewed overall changes remains stable Further recommendations pending plan of care as per clinical response of the patient Time with Patient: Greater than 30
== END 2018-09-06 14:22 | disposition home health service (06) | DRG 190 ==
LOC: EC 10:24 → 3SCARD 13:22
PROVIDERS: ADMIT Internal Medicine; ATTEND Internal Medicine
PROC: B246ZZ4 Ultrasonography of Right and Left Heart, Transesophageal (ICD-10-PCS; principal; 2018-09-02 07:30)
DX: J43.9 Emphysema, unspecified (principal); J96.21 Acute and chronic respiratory failure with hypoxia; I50.31 Acute diastolic (congestive) heart failure; E87.1 Hypo-osmolality and hyponatremia; E11.65 Type 2 diabetes mellitus with hyperglycemia; I48.0 Paroxysmal atrial fibrillation; E86.0 Dehydration; E66.01 Morbid (severe) obesity due to excess calories; I11.0 Hypertensive heart disease with heart failure; I34.0 Nonrheumatic mitral (valve) insufficiency; G40.909 Epilepsy, unspecified, not intractable, without status epilepticus; J20.9 Acute bronchitis, unspecified; J45.50 Severe persistent asthma, uncomplicated; I25.10 Atherosclerotic heart disease of native coronary artery without angina pectoris; E78.5 Hyperlipidemia, unspecified; I25.2 Old myocardial infarction; G47.33 Obstructive sleep apnea (adult) (pediatric); I95.1 Orthostatic hypotension; L71.9 Rosacea, unspecified; M19.90 Unspecified osteoarthritis, unspecified site; H91.92 Unspecified hearing loss, left ear; T38.0X5A Adverse effect of glucocorticoids and synthetic analogues, initial encounter; T82.855D Stenosis of coronary artery stent, subsequent encounter; Z99.81 Dependence on supplemental oxygen; Z68.30 Body mass index [BMI] 30.0-30.9, adult; Z71.3 Dietary counseling and surveillance; Z79.02 Long term (current) use of antithrombotics/antiplatelets; Z79.01 Long term (current) use of anticoagulants; Z79.82 Long term (current) use of aspirin; Z79.51 Long term (current) use of inhaled steroids; Z79.899 Other long term (current) drug therapy; Z87.891 Personal history of nicotine dependence; Z85.46 Personal history of malignant neoplasm of prostate; Z86.73 Personal history of transient ischemic attack (TIA), and cerebral infarction without residual deficits; Z86.14 Personal history of Methicillin resistant Staphylococcus aureus infection; Z86.19 Personal history of other infectious and parasitic diseases; Z87.01 Personal history of pneumonia (recurrent); Z95.5 Presence of coronary angioplasty implant and graft; Z85.828 Personal history of other malignant neoplasm of skin; Z90.49 Acquired absence of other specified parts of digestive tract; Z88.5 Allergy status to narcotic agent; Z88.8 Allergy status to other drugs, medicaments and biological substances; Z80.8 Family history of malignant neoplasm of other organs or systems; Z80.0 Family history of malignant neoplasm of digestive organs; Z82.0 Family history of epilepsy and other diseases of the nervous system; Z81.8 Family history of other mental and behavioral disorders
CPT/HCPCS: 36415; 71045; 80053; 82550; 82553; 83036; 83735; 83880; 84484; 85025; 85610; 85730; 87070; 87205; 92960; 93005; 93306; 93312; 93320; 93325; 94640; 94760; 96365; 96366; 96375; 96376; 99291

== ENCOUNTER → 2019-02-22 | Outpatient (CLI) | payer MEDICARE | END | disposition home or self-care (01) | LOC: LABWHC1 12:21 | PROVIDERS: ATTEND Internal Medicine Cardiovascular Disease | DX: I10 Essential (primary) hypertension (principal); I25.10 Atherosclerotic heart disease of native coronary artery without angina pectoris; I48.0 Paroxysmal atrial fibrillation | CPT/HCPCS: 36415; 84443; 84450; 84460 ==

== ENCOUNTER → 2019-05-30 | Outpatient (CLI) | payer MEDICARE ==
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
== END | disposition home or self-care (01) ==
LOC: RADXRMAIN 16:52
PROVIDERS: ATTEND Internal Medicine
DX: J44.9 Chronic obstructive pulmonary disease, unspecified (principal)
CPT/HCPCS: 71046

== ENCOUNTER 2019-06-01 19:50 | Inpatient (IN) | payer MEDICARE ==
[2019-06-01] MEDS ORDERED: IPRATROPIUM-ALBUTEROL 3 ML NEB INHALATION STA (20:04)
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
[2019-06-01 20:18] LABS: Basophils % (A) 0 %; Eosinophils # (A) 0.1 k/uL (0-0.7); Eosinophils % (A) 1 %; HCT 42.7 % (39.0-53.0); HGB 13.5 gm/dL (13.0-17.5); Lymphocytes # (A) 0.7 k/uL (1.0-4.8); Lymphocytes % (A) 8 %; MCH 28.6 pg (25.0-35.0); MCHC 31.7 g/dL (31.0-37.0); MCV 90.2 fL (80.0-100.0); Mean Platelet Volume 6.4; Monocytes # (A) 0.2 k/uL (0-1.0); Monocytes % (A) 2 %; Neutrophils # (A) 7.2 k/uL (1.3-7.7); Neutrophils % (A) 88 %; Platelet Count 271 k/uL (150-450); RBC 4.73 m/uL (4.30-5.90); RDW 13.3 % (11.5-15.5); WBC 8.2 k/uL (3.8-10.6)
[2019-06-01 20:23] LABS: Partial Thromboplastin Time 25.8 sec (22.0-30.0); Prothrombin Time 10.7 sec (9.0-12.0)
[2019-06-01 20:24] LABS: ALT 17 U/L (21-72); AST 24 U/L (17-59); African American GFR (CKD) >90 (>60 ml/min/1.73 sqM); Albumin 4.4 g/dL (3.5-5.0); Alkaline Phosphatase 55 U/L (38-126); Anion Gap 13 mmol/L; Blood Urea Nitrogen 17 mg/dL (9-20); Calcium 9.4 mg/dL (8.4-10.2); Carbon Dioxide 20 mmol/L (22-30); Chloride 101 mmol/L (98-107); Creatine Kinase 93 U/L (55-170); Glucose 332 mg/dL (74-99); Magnesium 1.9 mg/dL (1.6-2.3); Sodium 134 mmol/L (137-145); Total Bilirubin 0.2 mg/dL (0.2-1.3); Total Protein 7.2 g/dL (6.3-8.2)
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
[2019-06-01 20:57] LABS: Creatine Kinase MB 1.9 ng/mL (0.0-2.4); Troponin I <0.012 ng/mL (0.000-0.034)
[2019-06-01] MEDS ORDERED: IPRATROPIUM-ALBUTEROL 3 ML NEB INHALATION PRN (21:36)
[2019-06-01] MEDS ORDERED: methylPREDNISolone SOD SUCCI 125 MG/2 ML VIAL IV STA (21:36)
[2019-06-02 00:55] LABS: Glucose,Whole Blood 257 mg/dL (75-99)
[2019-06-02] MEDS: methylPREDNISolone SOD SUCCI 125 MG/2 ML VIAL IV SCH ×4 (01:10→17:35)
[2019-06-02] MEDS: INSULIN ASPART (NovoLOG) 100 UNIT/ML VIAL SQ SCH ×5 (01:37→21:24)
[2019-06-02 06:38] LABS: Glucose,Whole Blood 219 mg/dL (75-99)
[2019-06-02] MEDS ORDERED: FLUTICASONE 50MCG/SPRAY NASAL 16GM EA NOSTRIL PRN (07:07)
[2019-06-02] MEDS: IPRATROPIUM-ALBUTEROL 3 ML NEB INHALATION SCH ×4 (07:30→19:32)
[2019-06-02] MEDS ORDERED: INSULIN ASPART (NovoLOG) 100 UNIT/ML VIAL SQ SCH (07:30)
[2019-06-02] MEDS ORDERED: CEFDINIR 300 MG CAP PO SCH (09:00)
[2019-06-02] MEDS ORDERED: LEVOFLOXACIN 500 MG TAB PO SCH (09:00)
[2019-06-02] MEDS: CLOPIDOGREL 75 MG TAB PO SCH (09:44)
[2019-06-02] MEDS: APIXABAN 2.5 MG TABLET PO SCH ×2 (09:45→21:11)
[2019-06-02] MEDS: ASCORBIC ACID 500 MG TAB PO SCH (09:45)
[2019-06-02] MEDS: METOPROLOL SUCCINATE (ER) 50 MG TAB.ER.24H PO SCH (09:45)
[2019-06-02] MEDS: ISOSORBIDE MONONITRATE ER 60 MG TAB.ER.24H PO SCH (09:45)
[2019-06-02] MEDS: glipiZIDE 5 MG TAB PO SCH ×3 (09:45→17:35)
[2019-06-02] MEDS: levETIRAcetam 500 MG TAB PO SCH ×2 (09:45→21:11)
[2019-06-02] MEDS: MULTIVITAMINS, THERA 1 EACH TAB PO SCH (09:46)
[2019-06-02] MEDS: PANTOPRAZOLE 40 MG TABLET PO SCH (09:46)
[2019-06-02] MEDS: POTASSIUM CHLORIDE ER 20 MEQ TAB.ER PO SCH (09:46)
[2019-06-02] MEDS: MIDODRINE 5 MG TAB PO SCH ×3 (09:46→17:35)
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
[2019-06-02 11:06] LABS: Basophils % (A) 0 %; Eosinophils % (A) 0 %; HCT 42.1 % (39.0-53.0); HGB 13.9 gm/dL (13.0-17.5); Lymphocytes # (A) 1.4 k/uL (1.0-4.8); Lymphocytes % (A) 12 %; MCH 29.2 pg (25.0-35.0); MCV 88.6 fL (80.0-100.0); Mean Platelet Volume 5.8; Monocytes # (A) 0.3 k/uL (0-1.0); Monocytes % (A) 3 %; Neutrophils # (A) 10.1 k/uL (1.3-7.7); Neutrophils % (A) 85 %; Platelet Count 295 k/uL (150-450); RBC 4.75 m/uL (4.30-5.90); RDW 13.1 % (11.5-15.5); WBC 11.9 k/uL (3.8-10.6)
[2019-06-02 11:12] LABS: ALT 24 U/L (21-72); AST 18 U/L (17-59); African American GFR (CKD) >90 (>60 ml/min/1.73 sqM); Alkaline Phosphatase 57 U/L (38-126); Anion Gap 10 mmol/L; Blood Urea Nitrogen 15 mg/dL (9-20); Calcium 9.6 mg/dL (8.4-10.2); Carbon Dioxide 26 mmol/L (22-30); Chloride 101 mmol/L (98-107); Glucose 270 mg/dL (74-99); Potassium 4.2 mmol/L (3.5-5.1); Sodium 137 mmol/L (137-145); Total Bilirubin 0.4 mg/dL (0.2-1.3); Total Protein 6.8 g/dL (6.3-8.2)
[2019-06-02 11:34] LABS: Glucose,Whole Blood 215 mg/dL (75-99)
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
[2019-06-02 16:21] LABS: Glucose,Whole Blood 194 mg/dL (75-99)
[2019-06-02 16:49] LABS: Hemoglobin A1C 7.1 % (4.0-6.0)
[2019-06-02] MEDS: LISINOPRIL 2.5 MG TAB PO SCH (17:35)
[2019-06-02 20:24] LABS: Glucose,Whole Blood 137 mg/dL (75-99)
[2019-06-02] MEDS: diphenhydrAMINE 25 MG CAP PO SCH (21:11)
[2019-06-02] MEDS: ATORVASTATIN 10 MG TAB PO SCH (21:11)
[2019-06-02] MEDS: MONTELUKAST 10 MG TAB PO SCH (21:11)
[2019-06-03] MEDS: methylPREDNISolone SOD SUCCI 125 MG/2 ML VIAL IV SCH ×5 (00:11→23:29)
[2019-06-03 06:11] LABS: Basophils % (A) 0 %; Eosinophils % (A) 0 %; HCT 42.5 % (39.0-53.0); HGB 13.7 gm/dL (13.0-17.5); Lymphocytes # (A) 1.6 k/uL (1.0-4.8); Lymphocytes % (A) 11 %; MCH 29.1 pg (25.0-35.0); MCHC 32.3 g/dL (31.0-37.0); MCV 90.2 fL (80.0-100.0); Mean Platelet Volume 6.3; Monocytes # (A) 0.5 k/uL (0-1.0); Monocytes % (A) 4 %; Neutrophils # (A) 12.5 k/uL (1.3-7.7); Neutrophils % (A) 84 %; Platelet Count 288 k/uL (150-450); RBC 4.72 m/uL (4.30-5.90); RDW 13.3 % (11.5-15.5); WBC 14.8 k/uL (3.8-10.6)
[2019-06-03 06:25] LABS: ALT 23 U/L (21-72); AST 20 U/L (17-59); African American GFR (CKD) >90 (>60 ml/min/1.73 sqM); Albumin 3.8 g/dL (3.5-5.0); Alkaline Phosphatase 54 U/L (38-126); Anion Gap 9 mmol/L; Blood Urea Nitrogen 18 mg/dL (9-20); Calcium 9.3 mg/dL (8.4-10.2); Carbon Dioxide 26 mmol/L (22-30); Chloride 100 mmol/L (98-107); Glucose 221 mg/dL (74-99); Potassium 4.1 mmol/L (3.5-5.1); Sodium 135 mmol/L (137-145); Total Bilirubin 0.4 mg/dL (0.2-1.3); Total Protein 6.5 g/dL (6.3-8.2)
[2019-06-03 07:17] LABS: Glucose,Whole Blood 214 mg/dL (75-99)
[2019-06-03] MEDS: IPRATROPIUM-ALBUTEROL 3 ML NEB INHALATION SCH ×4 (08:00→18:48)
[2019-06-03] MEDS ORDERED: AZITHROMYCIN 500 MG in SODIUM CHLORIDE 0.9% 250 ML IVPB SCH (09:00)
[2019-06-03] MEDS: CLOPIDOGREL 75 MG TAB PO SCH (09:06)
[2019-06-03] MEDS: levETIRAcetam 500 MG TAB PO SCH ×2 (09:06→20:17)
[2019-06-03] MEDS: METOPROLOL SUCCINATE (ER) 50 MG TAB.ER.24H PO SCH (09:06)
[2019-06-03] MEDS: MULTIVITAMINS, THERA 1 EACH TAB PO SCH (09:06)
[2019-06-03] MEDS: POTASSIUM CHLORIDE ER 20 MEQ TAB.ER PO SCH (09:06)
[2019-06-03] MEDS: PANTOPRAZOLE 40 MG TABLET PO SCH (09:06)
[2019-06-03] MEDS: APIXABAN 2.5 MG TABLET PO SCH ×2 (09:07→20:17)
[2019-06-03] MEDS: MIDODRINE 5 MG TAB PO SCH ×3 (09:07→17:06)
[2019-06-03] MEDS: glipiZIDE 5 MG TAB PO SCH ×3 (09:07→17:06)
[2019-06-03] MEDS: INSULIN ASPART (NovoLOG) 100 UNIT/ML VIAL SQ SCH ×4 (09:08→20:45)
[2019-06-03] MEDS: ASCORBIC ACID 500 MG TAB PO SCH (09:08)
[2019-06-03] MEDS: ISOSORBIDE MONONITRATE ER 60 MG TAB.ER.24H PO SCH (09:08)
--- NOTE | 2019-06-03 11:25 | P.PN ---
Subjective Progress Note Date: 06/03/19 This is an 79-year-old male patient who presented with complaints of increased shortness of breath and sputum production over the past 3 days. Patient was seen by his PCP and started antibiotic but showed minimal improvement. Patient does have a known past medical history of COPD, asthma, CAD, bronchitits, prostate CA, CVA, DM, hyperlipidemia, hypertension, [place], OA, seizure disorder and ex smoker. Chest x-ray completed showing pleural diaphragmatic scarring unchanged compared to 08/15/2018. No acute lung disease, no heart failure. Patient started on IV steroids, antibiotic and DuoNeb breathing treatments. Pulmonary services have been consulted. Patient states he feels much improved than when he came in. Patient denies chest pain or shortness of breath. Patient denies nausea vomiting or diarrhea. Patient denies any urinary burning or frequency. On 06/03/2018 patient is alert oriented 3, sitting comfortably in bed. He currently denies any shortness of breath, chest pain. However he is still having intermittent episodes of shortness of breath. The dyspnea is exacerbated by activity, per nursing. He is still having productive cough. Per pulmonary services should take to continue IV steroids, IV antibiotics, and DuoNeb breathing treatment. Patient denies fever, pain. Patient denies any nausea vomiting or, diarrhea. Patient denies any urinary burning or frequency. Objective - Vital Signs Vital signs: Vital Signs Temp 97.5 F L 06/03/19 08:00 Pulse 72 06/03/19 08:12 Resp 18 06/03/19 08:00 BP 132/68 06/03/19 09:05 Pulse Ox 98 06/03/19 08:00 Intake & Output 06/02/19 06/03/19 06/03/19 18:59 06:59 18:59 Intake Total 605 Output Total 500 400 Balance 105 -400 Intake: Oral 605 Output: Urine 500 400 Other: Voiding Method Toilet Toilet Toilet # Voids 1 - Exam Head normocephalic Neck supple Lungs diminished bilaterally Heart regular rate and rhythm S1-S2, no rub or gallop Abdomen is soft nontender nondistended positive bowel sounds no hepatosplenomegaly Extremities no edema Neuro alert and orientated to 3 - Labs CBC & Chem 7: 06/03/19 05:45 06/03/19 05:45 Labs: Abnormal Lab Results - Last 24 Hours (Table) 06/02/19 06/02/19 06/02/19 Range/Units 10:37 10:37 10:37 WBC 11.9 H (3.8-10.6) k/uL Neutrophils # 10.1 H (1.3-7.7) k/uL Sodium (137-145) mmol/L Glucose 270 H (74-99) mg/dL POC Glucose (mg/dL) (75-99) mg/dL Hemoglobin A1c 7.1 H (4.0-6.0) % 06/02/19 06/02/19 06/02/19 Range/Units 11:30 16:20 20:12 WBC (3.8-10.6) k/uL Neutrophils # (1.3-7.7) k/uL Sodium (137-145) mmol/L Glucose (74-99) mg/dL POC Glucose (mg/dL) 215 H 194 H 137 H (75-99) mg/dL Hemoglobin A1c (4.0-6.0) % 06/03/19 06/03/19 06/03/19 Range/Units 05:45 05:45 07:16 WBC 14.8 H (3.8-10.6) k/uL Neutrophils # 12.5 H (1.3-7.7) k/uL Sodium 135 L (137-145) mmol/L Glucose 221 H (74-99) mg/dL POC Glucose (mg/dL) 214 H (75-99) mg/dL Hemoglobin A1c (4.0-6.0) % Assessment and Plan Assessment: 1. Increased shortness of breath related to COPD exacerbation. Patient started on Solu-Medrol and DuoNeb breathing treatments. Pulmonary service is following. 2. Acute tracheobronchitis. Patient started on Levaquin for antibiotic. changed to IV azithromycin and ceftiaxone. 3. History of paroxysmal atrial fibrillation. Patient was recently cardioverted. Patient is maintained on eliquis for anticoagulation 4. History of coronary artery disease with previous stent placement. Maintained on Plavix 5. History of prostate cancer 6. History of hyperlipidemia. Maintained on statin 7. Chronic hypoxic respiratory failure maintained on home O2 8. Diabetes mellitus type 2. Maintained on glipizide and insulin sliding scale added 9. History of seizures. Maintained on Keppra DVT prophylaxis eliquis. GI prophylaxis Protonix I performed an examination of the patient and discussed their management with the Nurse Practitioner. I have reviewed the Nurse Practitioner's notes and agree with the documented findings and plan of care
[2019-06-03 11:48] LABS: Glucose,Whole Blood 190 mg/dL (75-99)
--- NOTE | 2019-06-03 15:34 | P.PN ---
Subjective Progress Note Date: 06/03/19 Principal diagnosis: Acute COPD exacerbation, tracheobronchitis, coronary artery disease, dyslipidemia, hypertension hypertensive cardiovascular disease, obstructive sleep apnea 06/03/2019, patient seen eval reexamined during the rounds labs reviewed medications reviewed has been doing slightly better but still of ongoing cough congestion intermittent wheezing, labs reviewed, Objective - Vital Signs Vital signs: Vital Signs Temp 97.5 F L 06/03/19 08:00 Pulse 74 06/03/19 15:19 Resp 18 06/03/19 08:00 BP 132/68 06/03/19 09:05 Pulse Ox 98 06/03/19 08:00 Intake & Output 06/02/19 06/03/19 06/03/19 18:59 06:59 18:59 Intake Total 605 Output Total 500 400 Balance 105 -400 Intake: Oral 605 Output: Urine 500 400 Other: Voiding Method Toilet Toilet Toilet # Voids 1 2 - Exam - Constitutional General appearance: average body habitus, cooperative, disheveled - EENT Eyes: anicteric sclerae, EOMI, PERRLA, poor dentition, scleral icterus ENT: normal oropharynx Ears: bilateral: normal - Neck Neck: normal ROM Carotids: bilateral: upstroke normal Thyroid: bilateral: normal size - Respiratory Respiratory: bilateral: diminished, wheezing (Fine wheezing on fours expiration), prolonged expiration, negative: CTA, dullness, rales, rhonchi - Cardiovascular Rhythm: regular Heart sounds: normal: S1, S2 - Gastrointestinal General gastrointestinal: soft - Integumentary Integumentary: normal, normal turgor - Neurologic Neurologic: CNII-XII intact - Musculoskeletal Musculoskeletal: gait normal, generalized weakness, strength equal bilaterally - Psychiatric Psychiatric: A&O x's 3, appropriate affect, intact judgment & insight - Labs CBC & Chem 7: 06/03/19 05:45 06/03/19 05:45 Labs: Abnormal Lab Results - Last 24 Hours (Table) 06/02/19 06/02/19 06/02/19 Range/Units 10:37 16:20 20:12 WBC (3.8-10.6) k/uL Neutrophils # (1.3-7.7) k/uL Sodium (137-145) mmol/L Glucose (74-99) mg/dL POC Glucose (mg/dL) 194 H 137 H (75-99) mg/dL Hemoglobin A1c 7.1 H (4.0-6.0) % 06/03/19 06/03/19 06/03/19 Range/Units 05:45 05:45 07:16 WBC 14.8 H (3.8-10.6) k/uL Neutrophils # 12.5 H (1.3-7.7) k/uL Sodium 135 L (137-145) mmol/L Glucose 221 H (74-99) mg/dL POC Glucose (mg/dL) 214 H (75-99) mg/dL Hemoglobin A1c (4.0-6.0) % 06/03/19 Range/Units 11:46 WBC (3.8-10.6) k/uL Neutrophils # (1.3-7.7) k/uL Sodium (137-145) mmol/L Glucose (74-99) mg/dL POC Glucose (mg/dL) 190 H (75-99) mg/dL Hemoglobin A1c (4.0-6.0) % Assessment and Plan Assessment: Acute COPD exacerbation Tracheobronchitis Chronic hypoxic respiratory failure Type 2 diabetes mellitus Atrial fibrillation Coronary artery disease Prostrate cancer Plan: Continue breathing treatments IV steroids Continue anticoagulation Antibiotics Sputum culture if able to cough out sputum Further recommendations pending plan of care as per clinical response of the patient Time with Patient: Greater than 30
[2019-06-03 16:52] LABS: Glucose,Whole Blood 234 mg/dL (75-99)
[2019-06-03] MEDS: LISINOPRIL 2.5 MG TAB PO SCH (17:06)
[2019-06-03] MEDS ORDERED: INFLUENZA VACCINE (6 MOS+) 60 MCG/0.5 ML SYRINGE IM ONE (18:31)
[2019-06-03] MEDS: ATORVASTATIN 10 MG TAB PO SCH (20:17)
[2019-06-03] MEDS: diphenhydrAMINE 25 MG CAP PO SCH (20:17)
[2019-06-03] MEDS: MONTELUKAST 10 MG TAB PO SCH (20:17)
[2019-06-03 20:38] LABS: Glucose,Whole Blood 208 mg/dL (75-99)
[2019-06-04] MEDS: methylPREDNISolone SOD SUCCI 125 MG/2 ML VIAL IV SCH ×2 (04:53→12:20)
[2019-06-04 05:58] LABS: Basophils # (A) 0.1 k/uL (0-0.2); Basophils % (A) 1 %; Eosinophils % (A) 0 %; HCT 42.7 % (39.0-53.0); HGB 13.6 gm/dL (13.0-17.5); Lymphocytes # (A) 1.4 k/uL (1.0-4.8); Lymphocytes % (A) 9 %; MCH 28.4 pg (25.0-35.0); MCHC 31.8 g/dL (31.0-37.0); MCV 89.3 fL (80.0-100.0); Mean Platelet Volume 6.3; Monocytes # (A) 0.5 k/uL (0-1.0); Monocytes % (A) 3 %; Neutrophils # (A) 12.4 k/uL (1.3-7.7); Neutrophils % (A) 86 %; Platelet Count 311 k/uL (150-450); RBC 4.78 m/uL (4.30-5.90); RDW 13.1 % (11.5-15.5); WBC 14.4 k/uL (3.8-10.6)
[2019-06-04 06:14] LABS: ALT 23 U/L (21-72); AST 20 U/L (17-59); African American GFR (CKD) >90 (>60 ml/min/1.73 sqM); Albumin 3.7 g/dL (3.5-5.0); Alkaline Phosphatase 53 U/L (38-126); Anion Gap 7 mmol/L; Blood Urea Nitrogen 18 mg/dL (9-20); Calcium 8.9 mg/dL (8.4-10.2); Carbon Dioxide 28 mmol/L (22-30); Chloride 101 mmol/L (98-107); Glucose 233 mg/dL (74-99); Potassium 4.2 mmol/L (3.5-5.1); Sodium 136 mmol/L (137-145); Total Bilirubin 0.4 mg/dL (0.2-1.3); Total Protein 6.5 g/dL (6.3-8.2)
[2019-06-04 06:54] LABS: Glucose,Whole Blood 221 mg/dL (75-99)
[2019-06-04] MEDS: IPRATROPIUM-ALBUTEROL 3 ML NEB INHALATION SCH ×2 (07:12→11:53)
[2019-06-04 08:18] VITALS: BP 141/64; RESP 16; TEMP 97.4
[2019-06-04] MEDS: METOPROLOL SUCCINATE (ER) 50 MG TAB.ER.24H PO SCH (08:47)
[2019-06-04] MEDS: CLOPIDOGREL 75 MG TAB PO SCH (08:47)
[2019-06-04] MEDS: MULTIVITAMINS, THERA 1 EACH TAB PO SCH (08:48)
[2019-06-04] MEDS: INSULIN ASPART (NovoLOG) 100 UNIT/ML VIAL SQ SCH ×2 (08:48→12:20)
[2019-06-04] MEDS: levETIRAcetam 500 MG TAB PO SCH (08:48)
[2019-06-04] MEDS: PANTOPRAZOLE 40 MG TABLET PO SCH (08:48)
[2019-06-04] MEDS: POTASSIUM CHLORIDE ER 20 MEQ TAB.ER PO SCH (08:48)
[2019-06-04] MEDS: ISOSORBIDE MONONITRATE ER 60 MG TAB.ER.24H PO SCH (08:49)
[2019-06-04] MEDS: APIXABAN 2.5 MG TABLET PO SCH (08:49)
[2019-06-04] MEDS: glipiZIDE 5 MG TAB PO SCH ×2 (08:49→14:05)
[2019-06-04] MEDS: MIDODRINE 5 MG TAB PO SCH ×2 (08:49→14:05)
[2019-06-04] MEDS: ASCORBIC ACID 500 MG TAB PO SCH (08:50)
[2019-06-04] MEDS ORDERED: AZITHROMYCIN 500 MG TAB PO SCH (09:00)
[2019-06-04 11:37] LABS: Glucose,Whole Blood 191 mg/dL (75-99)
[2019-06-04 12:04] VITALS: PULSE 64
== END 2019-06-04 14:30 | disposition home or self-care (01) | DRG 191 ==
LOC: EC 19:50 → 1SOBS 21:36 → OBSVTOIN 06-03 11:00
PROVIDERS: ADMIT Internal Medicine; ATTEND Internal Medicine
DX: J44.0 Chronic obstructive pulmonary disease with (acute) lower respiratory infection (principal); J96.11 Chronic respiratory failure with hypoxia; J44.1 Chronic obstructive pulmonary disease with (acute) exacerbation; J20.9 Acute bronchitis, unspecified; E11.9 Type 2 diabetes mellitus without complications; E78.5 Hyperlipidemia, unspecified; G40.909 Epilepsy, unspecified, not intractable, without status epilepticus; G47.33 Obstructive sleep apnea (adult) (pediatric); H91.92 Unspecified hearing loss, left ear; I11.9 Hypertensive heart disease without heart failure; I25.10 Atherosclerotic heart disease of native coronary artery without angina pectoris; I25.2 Old myocardial infarction; I48.0 Paroxysmal atrial fibrillation; Z79.01 Long term (current) use of anticoagulants; Z79.02 Long term (current) use of antithrombotics/antiplatelets; Z79.84 Long term (current) use of oral hypoglycemic drugs; Z79.899 Other long term (current) drug therapy; Z80.0 Family history of malignant neoplasm of digestive organs; Z80.8 Family history of malignant neoplasm of other organs or systems; Z82.0 Family history of epilepsy and other diseases of the nervous system; Z85.46 Personal history of malignant neoplasm of prostate; Z85.828 Personal history of other malignant neoplasm of skin; Z86.14 Personal history of Methicillin resistant Staphylococcus aureus infection; Z86.73 Personal history of transient ischemic attack (TIA), and cerebral infarction without residual deficits; Z87.891 Personal history of nicotine dependence; Z95.5 Presence of coronary angioplasty implant and graft; Z99.81 Dependence on supplemental oxygen; Z88.5 Allergy status to narcotic agent
CPT/HCPCS: 36415; 71046; 80053; 82550; 82553; 83036; 83735; 83880; 84484; 85025; 85610; 85730; 87502; 90686; 93005; 94640; 94760; 96374; 99285

== ENCOUNTER 2019-08-31 11:46 | Observation (INO) | payer BC, MEDICARE ==
[2019-08-31] MEDS ORDERED: methylPREDNISolone SOD SUCCI 125 MG/2 ML VIAL IV STA (12:08)
[2019-08-31] MEDS ORDERED: SODIUM CHLORIDE 0.9% 1,000 ML IV STA (12:08)
[2019-08-31] MEDS ORDERED: IPRATROPIUM-ALBUTEROL 3 ML NEB INHALATION STA (12:08)
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
[2019-08-31 12:35] LABS: Basophils # (A) 0.2 k/uL (0-0.2); Basophils % (A) 3 %; Eosinophils # (A) 0.8 k/uL (0-0.7); Eosinophils % (A) 11 %; HCT 41.7 % (39.0-53.0); Lymphocytes # (A) 2.6 k/uL (1.0-4.8); Lymphocytes % (A) 34 %; MCH 29.3 pg (25.0-35.0); MCHC 33.6 g/dL (31.0-37.0); MCV 87.2 fL (80.0-100.0); Monocytes # (A) 0.5 k/uL (0-1.0); Monocytes % (A) 7 %; Neutrophils # (A) 3.4 k/uL (1.3-7.7); Neutrophils % (A) 44 %; Platelet Count 284 k/uL (150-450); RBC 4.78 m/uL (4.30-5.90); RDW 12.9 % (11.5-15.5); WBC 7.7 k/uL (3.8-10.6)
[2019-08-31 12:45] LABS: ALT 14 U/L (4-49); AST 20 U/L (17-59); African American GFR (CKD) >90 (>60 ml/min/1.73 sqM); Alkaline Phosphatase 62 U/L (38-126); Anion Gap 10 mmol/L; Blood Urea Nitrogen 11 mg/dL (9-20); Calcium 9.1 mg/dL (8.4-10.2); Carbon Dioxide 24 mmol/L (22-30); Chloride 101 mmol/L (98-107); Glucose 236 mg/dL (74-99); Non-African American GFR(CKD) >90 (>60 ml/min/1.73 sqM); Potassium 4.5 mmol/L (3.5-5.1); Sodium 135 mmol/L (137-145); Total Bilirubin 0.7 mg/dL (0.2-1.3); Total Protein 6.9 g/dL (6.3-8.2)
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
[2019-08-31] MEDS ORDERED: IPRATROPIUM-ALBUTEROL 3 ML NEB INHALATION PRN (14:05)
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
[2019-08-31] MEDS ORDERED: ALBUTEROL NEBULIZED 2.5 MG/3 ML INHALATION PRN (15:22)
[2019-08-31] MEDS ORDERED: FLUTICASONE 50MCG/SPRAY NASAL 16GM EA NOSTRIL PRN (15:22)
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
[2019-08-31] MEDS: IPRATROPIUM-ALBUTEROL 3 ML NEB INHALATION SCH ×2 (15:49→19:40)
[2019-08-31 17:13] LABS: Glucose,Whole Blood 211 mg/dL (75-99)
[2019-08-31] MEDS: LISINOPRIL 2.5 MG TAB PO SCH (17:24)
[2019-08-31] MEDS: glipiZIDE 5 MG TAB PO SCH (17:24)
[2019-08-31] MEDS: MIDODRINE 5 MG TAB PO SCH (17:24)
[2019-08-31] MEDS: INSULIN ASPART (NovoLOG) 100 UNIT/ML VIAL SQ SCH ×2 (17:25→20:39)
[2019-08-31] MEDS: methylPREDNISolone SOD SUCCI 125 MG/2 ML VIAL IV SCH (17:25)
[2019-08-31] MEDS: SYMBICORT 160-4.5 MCG INHALER INHALATION SCH (19:40)
[2019-08-31 20:18] LABS: Glucose,Whole Blood 287 mg/dL (75-99)
[2019-08-31] MEDS: APIXABAN 2.5 MG TABLET PO SCH (20:39)
[2019-08-31] MEDS: ATORVASTATIN 10 MG TAB PO SCH (20:39)
[2019-08-31] MEDS: diphenhydrAMINE 25 MG CAP PO SCH (20:39)
[2019-08-31] MEDS: MONTELUKAST 10 MG TAB PO SCH (20:39)
[2019-08-31] MEDS: levETIRAcetam 500 MG TAB PO SCH (20:39)
[2019-08-31] MEDS: CEFDINIR 300 MG CAP PO SCH (20:40)
[2019-09-01] MEDS: methylPREDNISolone SOD SUCCI 125 MG/2 ML VIAL IV SCH ×5 (00:11→23:17)
[2019-09-01 07:05] LABS: Glucose,Whole Blood 220 mg/dL (75-99)
[2019-09-01] MEDS: MIDODRINE 5 MG TAB PO SCH ×3 (07:38→17:16)
[2019-09-01] MEDS: CLOPIDOGREL 75 MG TAB PO SCH (07:38)
[2019-09-01] MEDS: glipiZIDE 5 MG TAB PO SCH ×3 (07:38→17:16)
[2019-09-01] MEDS: ISOSORBIDE MONONITRATE ER 60 MG TAB.ER.24H PO SCH (07:39)
[2019-09-01] MEDS: ASCORBIC ACID 500 MG TAB PO SCH (07:39)
[2019-09-01] MEDS: METOPROLOL SUCCINATE (ER) 50 MG TAB.ER.24H PO SCH (07:39)
[2019-09-01] MEDS: levETIRAcetam 500 MG TAB PO SCH ×2 (07:39→20:54)
[2019-09-01] MEDS: MULTIVITAMINS, THERA 1 EACH TAB PO SCH (07:39)
[2019-09-01] MEDS: POTASSIUM CHLORIDE ER 20 MEQ TAB.ER PO SCH (07:39)
[2019-09-01] MEDS: APIXABAN 2.5 MG TABLET PO SCH ×2 (07:39→20:54)
[2019-09-01] MEDS: PANTOPRAZOLE 40 MG TABLET PO SCH (07:39)
[2019-09-01] MEDS: FUROSEMIDE 20 MG TAB PO SCH (07:39)
[2019-09-01] MEDS: CEFDINIR 300 MG CAP PO SCH ×2 (07:39→20:54)
[2019-09-01] MEDS: INSULIN ASPART (NovoLOG) 100 UNIT/ML VIAL SQ SCH ×4 (07:40→20:53)
[2019-09-01 08:15] LABS: Basophils # (A) 0.1 k/uL (0-0.2); Basophils % (A) 1 %; Eosinophils % (A) 0 %; HCT 41.3 % (39.0-53.0); HGB 14.1 gm/dL (13.0-17.5); Lymphocytes # (A) 1.6 k/uL (1.0-4.8); Lymphocytes % (A) 13 %; MCH 29.7 pg (25.0-35.0); MCHC 34.1 g/dL (31.0-37.0); MCV 87.2 fL (80.0-100.0); Monocytes # (A) 0.2 k/uL (0-1.0); Monocytes % (A) 1 %; Neutrophils # (A) 10.4 k/uL (1.3-7.7); Neutrophils % (A) 85 %; Platelet Count 322 k/uL (150-450); RBC 4.74 m/uL (4.30-5.90); RDW 12.7 % (11.5-15.5); WBC 12.3 k/uL (3.8-10.6)
[2019-09-01 08:29] LABS: ALT 14 U/L (4-49); AST 20 U/L (17-59); African American GFR (CKD) >90 (>60 ml/min/1.73 sqM); Albumin 4.1 g/dL (3.5-5.0); Alkaline Phosphatase 69 U/L (38-126); Anion Gap 10 mmol/L; Blood Urea Nitrogen 14 mg/dL (9-20); Calcium 9.2 mg/dL (8.4-10.2); Carbon Dioxide 24 mmol/L (22-30); Chloride 101 mmol/L (98-107); Glucose 229 mg/dL (74-99); Non-African American GFR(CKD) >90 (>60 ml/min/1.73 sqM); Potassium 4.3 mmol/L (3.5-5.1); Sodium 135 mmol/L (137-145); Total Bilirubin 0.6 mg/dL (0.2-1.3); Total Protein 7.2 g/dL (6.3-8.2)
[2019-09-01] MEDS: IPRATROPIUM-ALBUTEROL 3 ML NEB INHALATION SCH ×4 (08:31→20:21)
[2019-09-01] MEDS: SYMBICORT 160-4.5 MCG INHALER INHALATION SCH ×2 (08:31→20:21)
--- NOTE | 2019-09-01 10:42 | P.PN ---
Subjective Progress Note Date: 09/01/19 On 08/31/2019 patient presented to the emergency department for increasing shortness of breath over the last 4 days. Patient is alert and oriented 3. Patient has increased work of breathing, and is seen to be on oxygen in the ED. Patient states he has not been recently ill, no fevers or chills, no nausea vomiting diarrhea. Patient denies chest pain, denies urinary burning or frequency. Patient states he does not use oxygen at home. Patient states he did try taking his rescue inhaler at home for symptom, he did not receive any relief. Patient denies using oxygen at home. Patient has a history of A. fib with cardioversion and rate which is controlled. Patient is maintained on eliquis for A. fib. Patient's blood sugar was elevated upon arrival to the emergency department, sliding scale insulin was ordered. Patient has a known history of COPD, asthma, CAD, bronchitis, prostate CA, CVA, diabetes mellitus type 2, hyperlipidemia, hypertension, [place], OA, seizure disorder and ex-smoker. At this time patient remains short of breath. Patient denies chest pain. Patient denies nausea vomiting or diarrhea. Patient denies any urinary burning frequency. On 09/01/2019 patient seen resting comfortably in bed alert and oriented 3. Patient states he has improved breathing. Patient is currently still on nasal cannula. Patient denies chest pain, shortness of breath, nausea vomiting or d iarrhea. Patient denies any urinary burning or frequency. Influenza negative. Patient remains on IV steroids and breathing treatments. Patient remains on Omnicef. Pulmonary service is following. Objective - Vital Signs Vital signs: Vital Signs Temp 97.4 F L 09/01/19 05:00 Pulse 75 09/01/19 08:44 Resp 20 09/01/19 05:00 BP 133/69 09/01/19 05:00 Pulse Ox 95 09/01/19 08:32 Intake & Output 08/31/19 09/01/19 09/01/19 18:59 06:59 18:59 Intake Total 1000 Balance 1000 Weight 95.254 kg Intake: Oral 1000 Other: Voiding Method Toilet # Voids 2 - Exam Head normocephalic Neck supple Lungs mild expiratory wheezes in all lobes Heart regular rate and rhythm S1-S2, no rub or gallop Abdomen is soft nontender nondistended positive bowel sounds no hepatosplenomegaly Extremities no edema Neuro alert and orientated to 3 - Labs CBC & Chem 7: 09/01/19 07:38 09/01/19 07:38 Labs: Abnormal Lab Results - Last 24 Hours (Table) 08/31/19 08/31/19 08/31/19 Range/Units 12:20 12:20 12:20 WBC (3.8-10.6) k/uL Neutrophils # (1.3-7.7) k/uL Eosinophils # 0.8 H (0-0.7) k/uL Sodium 135 L (137-145) mmol/L Glucose 236 H (74-99) mg/dL POC Glucose (mg/dL) (75-99) mg/dL Hemoglobin A1c 8.0 H (4.0-6.0) % 08/31/19 08/31/19 09/01/19 Range/Units 17:11 20:14 07:02 WBC (3.8-10.6) k/uL Neutrophils # (1.3-7.7) k/uL Eosinophils # (0-0.7) k/uL Sodium (137-145) mmol/L Glucose (74-99) mg/dL POC Glucose (mg/dL) 211 H 287 H 220 H (75-99) mg/dL Hemoglobin A1c (4.0-6.0) % 09/01/19 09/01/19 Range/Units 07:38 07:38 WBC 12.3 H (3.8-10.6) k/uL Neutrophils # 10.4 H (1.3-7.7) k/uL Eosinophils # (0-0.7) k/uL Sodium 135 L (137-145) mmol/L Glucose 229 H (74-99) mg/dL POC Glucose (mg/dL) (75-99) mg/dL Hemoglobin A1c (4.0-6.0) % Assessment and Plan Assessment: 1. Increased shortness of breath related to COPD exacerbation. Patient started on Solu-Medrol and DuoNeb breathing treatments. Chest x-ray completed revealing no acute pulmonary process. Pulmonary service is following. Patient is receiving Cefdinir. Influenza A and B negative. 2. Purulent tracheobronchitis. Patient maintained on Cefdinir. 3. History of A. fib. Patient was cardioverted in the past, patient remains on eliquis for anticoagulation. 4. History of coronary arteries artery disease with previous stent placement. Maintained on Plavix. 5. History of prostate cancer 6. History of hyperlipidemia. Maintained on statin 7. History of diabetes mellitus type 2. Maintained on glipizide and insulin sliding scale. 8. History of seizures. Maintained on Keppra. DVT prophylaxis eliquis. GI prophylaxis Pepcid Pulmonary service is following Continue IV steroids and antibiotic
[2019-09-01 11:43] LABS: Glucose,Whole Blood 188 mg/dL (75-99)
[2019-09-01] MEDS ORDERED: ACETAMINOPHEN TAB 325 MG TAB PO PRN (11:51)
--- NOTE | 2019-09-01 15:39 | P.PN ---
Subjective Progress Note Date: 09/01/19 Principal diagnosis: Acute COPD exacerbation Purulent tracheobronchitis Obstructive sleep apnea Hypertension and hypertensive cardiovascular disease Dyslipidemia Type 2 diabetes mellitus Coronary artery disease 2019, patient seen and evaluated examined doing well denies any chest pain breathing has improved, denies any nausea vomiting hopefully next 24 hours IV steroids and antibiotics changed to by mouth agree with discharge planning This is a 79-year-old well-known to me came into the hospital with 4 day history of increased cuff congestion and greenish to brownish sputum production has a significant history of end-stage COPD as well as obstructive sleep apnea, due to progressive symptoms decided come into emergency department was seen evaluated and examined and admitted into the hospital Objective - Vital Signs Vital signs: Vital Signs Temp 97.7 F 09/01/19 12:47 Pulse 73 09/01/19 12:47 Resp 15 09/01/19 12:47 BP 138/75 09/01/19 12:47 Pulse Ox 94 L 09/01/19 12:47 Intake & Output 08/31/19 09/01/19 09/01/19 18:59 06:59 18:59 Intake Total 1000 240 Balance 1000 240 Weight 95.254 kg Intake: Oral 1000 240 Other: Voiding Method Toilet # Voids 2 2 - Exam - Constitutional General appearance: average body habitus, cooperative, disheveled, mild distress - EENT Eyes: EOMI, PERRLA, normal appearance Ears: bilateral: normal - Neck Carotids: bilateral: upstroke normal - Respiratory Respiratory: bilateral: diminished, wheezing - Cardiovascular Rhythm: regular Heart sounds: normal: S1, S2 - Gastrointestinal General gastrointestinal: normal bowel sounds - Neurologic Neurologic: CNII-XII intact - Musculoskeletal Musculoskeletal: gait normal, generalized weakness, strength equal bilaterally - Labs CBC & Chem 7: 09/01/19 07:38 09/01/19 07:38 Labs: Abnormal Lab Results - Last 24 Hours (Table) 08/31/19 08/31/19 08/31/19 Range/Units 12:20 17:11 20:14 WBC (3.8-10.6) k/uL Neutrophils # (1.3-7.7) k/uL Sodium (137-145) mmol/L Glucose (74-99) mg/dL POC Glucose (mg/dL) 211 H 287 H (75-99) mg/dL Hemoglobin A1c 8.0 H (4.0-6.0) % 09/01/19 09/01/19 09/01/19 Range/Units 07:02 07:38 07:38 WBC 12.3 H (3.8-10.6) k/uL Neutrophils # 10.4 H (1.3-7.7) k/uL Sodium 135 L (137-145) mmol/L Glucose 229 H (74-99) mg/dL POC Glucose (mg/dL) 220 H (75-99) mg/dL Hemoglobin A1c (4.0-6.0) % 09/01/19 Range/Units 11:41 WBC (3.8-10.6) k/uL Neutrophils # (1.3-7.7) k/uL Sodium (137-145) mmol/L Glucose (74-99) mg/dL POC Glucose (mg/dL) 188 H (75-99) mg/dL Hemoglobin A1c (4.0-6.0) % Assessment and Plan Assessment: Acute COPD exacerbation Purulent tracheobronchitis Obstructive sleep apnea Hypertension and hypertensive cardiovascular disease Dyslipidemia Type 2 diabetes mellitus Coronary artery disease Plan: Continue bronchodilator IV steroids Broad-spectrum antibiotic Further recommendations pending plan of care as per clinical response of patient Time with Patient: Greater than 30
[2019-09-01 17:09] LABS: Glucose,Whole Blood 174 mg/dL (75-99)
[2019-09-01] MEDS: LISINOPRIL 2.5 MG TAB PO SCH (17:16)
[2019-09-01 20:23] LABS: Glucose,Whole Blood 185 mg/dL (75-99)
[2019-09-01] MEDS: ATORVASTATIN 10 MG TAB PO SCH (20:54)
[2019-09-01] MEDS: diphenhydrAMINE 25 MG CAP PO SCH (20:54)
[2019-09-01] MEDS: MONTELUKAST 10 MG TAB PO SCH (20:54)
[2019-09-02 05:04] VITALS: BP 137/67; RESP 20; TEMP 97.9
[2019-09-02] MEDS: methylPREDNISolone SOD SUCCI 125 MG/2 ML VIAL IV SCH ×2 (05:47→11:11)
[2019-09-02 07:19] LABS: Glucose,Whole Blood 211 mg/dL (75-99)
[2019-09-02 07:20] LABS: Basophils # (A) 0.1 k/uL (0-0.2); Basophils % (A) 1 %; Eosinophils % (A) 0 %; HCT 42.2 % (39.0-53.0); HGB 13.8 gm/dL (13.0-17.5); Lymphocytes # (A) 1.2 k/uL (1.0-4.8); Lymphocytes % (A) 8 %; MCH 28.8 pg (25.0-35.0); MCHC 32.8 g/dL (31.0-37.0); Mean Platelet Volume 7.1; Monocytes # (A) 0.4 k/uL (0-1.0); Monocytes % (A) 3 %; Neutrophils % (A) 88 %; Platelet Count 284 k/uL (150-450); RBC 4.79 m/uL (4.30-5.90); RDW 12.9 % (11.5-15.5); WBC 14.8 k/uL (3.8-10.6)
[2019-09-02] MEDS: levETIRAcetam 500 MG TAB PO SCH (07:26)
[2019-09-02] MEDS: CEFDINIR 300 MG CAP PO SCH (07:26)
[2019-09-02] MEDS: PANTOPRAZOLE 40 MG TABLET PO SCH (07:26)
[2019-09-02] MEDS: ASCORBIC ACID 500 MG TAB PO SCH (07:26)
[2019-09-02] MEDS: ISOSORBIDE MONONITRATE ER 60 MG TAB.ER.24H PO SCH (07:26)
[2019-09-02] MEDS: APIXABAN 2.5 MG TABLET PO SCH (07:26)
[2019-09-02] MEDS: POTASSIUM CHLORIDE ER 20 MEQ TAB.ER PO SCH (07:26)
[2019-09-02] MEDS: FUROSEMIDE 20 MG TAB PO SCH (07:26)
[2019-09-02] MEDS: MULTIVITAMINS, THERA 1 EACH TAB PO SCH (07:26)
[2019-09-02] MEDS: METOPROLOL SUCCINATE (ER) 50 MG TAB.ER.24H PO SCH (07:27)
[2019-09-02] MEDS: MIDODRINE 5 MG TAB PO SCH ×2 (07:27→11:12)
[2019-09-02] MEDS: CLOPIDOGREL 75 MG TAB PO SCH (07:27)
[2019-09-02] MEDS: glipiZIDE 5 MG TAB PO SCH ×2 (07:27→11:12)
[2019-09-02] MEDS: INSULIN ASPART (NovoLOG) 100 UNIT/ML VIAL SQ SCH (07:27)
[2019-09-02 07:44] LABS: ALT 15 U/L (4-49); AST 22 U/L (17-59); African American GFR (CKD) >90 (>60 ml/min/1.73 sqM); Alkaline Phosphatase 61 U/L (38-126); Anion Gap 10 mmol/L; Blood Urea Nitrogen 17 mg/dL (9-20); Calcium 9.1 mg/dL (8.4-10.2); Carbon Dioxide 25 mmol/L (22-30); Chloride 102 mmol/L (98-107); Glucose 234 mg/dL (74-99); Non-African American GFR(CKD) 87 (>60 ml/min/1.73 sqM); Potassium 4.9 mmol/L (3.5-5.1); Sodium 137 mmol/L (137-145); Total Bilirubin 0.6 mg/dL (0.2-1.3)
[2019-09-02] MEDS: IPRATROPIUM-ALBUTEROL 3 ML NEB INHALATION SCH (07:49)
[2019-09-02] MEDS: SYMBICORT 160-4.5 MCG INHALER INHALATION SCH (07:49)
[2019-09-02 07:58] VITALS: PULSE 72
--- NOTE | 2019-09-02 11:19 | P.DS ---
Providers Date of admission: 08/31/19 14:05 Expected date of discharge: 09/02/19 Attending physician: Florian Rdz Consults: 08/31/19 14:05 Consult Physician Routine Consulting Provider: Santana Stanley Consult Reason/Comments: dyspnea Do you want consulting provider notified?: Yes Primary care physician: Florian Kendell [facility] Course: Discharge diagnosis 1. Increased shortness of breath related to COPD exacerbation. Patient started on Solu-Medrol and DuoNeb breathing treatments. Chest x-ray completed revealing no acute pulmonary process. Pulmonary service is following. Patient is receiving Cefdinir. Influenza A and B negative. Discussed case with Dr. Stanley, patient has been cleared for discharge. Patient will be DC'd on prednisone taper and follow up with PCP and pulmonary services 2. Purulent tracheobronchitis. Patient maintained on Cefdinir. patient will be DC'd on Omnicef for 7 more days 3. History of A. fib. Patient was cardioverted in the past, patient remains on eliquis for anticoagulation. 4. History of coronary arteries artery disease with previous stent placement. Maintained on Plavix. 5. History of prostate cancer 6. History of hyperlipidemia. Maintained on statin 7. History of diabetes mellitus type 2. Maintained on glipizide and insulin sliding scale. 8. History of seizures. Maintained on Keppra. Activity as tolerated On 08/31/2019 patient presented to the emergency department for increasing shortness of breath over the last 4 days. Patient is alert and oriented 3. P atient has increased work of breathing, and is seen to be on oxygen in the ED. Patient states he has not been recently ill, no fevers or chills, no nausea vomiting diarrhea. Patient denies chest pain, denies urinary burning or frequency. Patient states he does not use oxygen at home. Patient states he did try taking his rescue inhaler at home for symptom, he did not receive any relief. Patient denies using oxygen at home. Patient has a history of A. fib with cardioversion and rate which is controlled. Patient is maintained on eliquis for A. fib. Patient's blood sugar was elevated upon arrival to the emergency department, sliding scale insulin was ordered. Patient has a known history of COPD, asthma, CAD, bronchitis, prostate CA, CVA, diabetes mellitus type 2, hyperlipidemia, hypertension, [place], OA, seizure disorder and ex-smoker. At this time patient remains short of breath. Patient denies chest pain. Patient denies nausea vomiting or diarrhea. Patient denies any urinary burning frequency. On 09/01/2019 patient seen resting comfortably in bed alert and oriented 3. Patient states he has improved breathing. Patient is currently still on nasal cannula. Patient denies chest pain, shortness of breath, nausea vomiting or diarrhea. Patient denies any urinary burning or frequency. Influenza negative. Patient remains on IV steroids and breathing treatments. Patient remains on Omnicef. Pulmonary service is following. On 09/02/2019 patient is alert and oriented 3. Patient states he feels much improved ready for DC home. Discussed with Dr. Stanley per pulmonary, patient has been cleared for discharge. Patient will be DC'd on prednisone and antibiotic for 7 days. Patient has been up ambulating without oxygen per nursing staff. Patient denies chest pain or shortness of breath. Patient denies nausea vomiting or diarrhea. Patient denies any urinary burning or frequency. I performed an examination of the patient and discussed their management with the Nurse Practitioner. I have reviewed the Nurse Practitioner's notes and agree with the documented findings and plan of care Patient Condition at Discharge: Stable Plan - Discharge Summary Discharge Rx Participant: No New Discharge Prescriptions: New Cefdinir [Omnicef] 300 mg PO BID 7 Days #14 cap predniSONE 10 mg PO DIRECTED 12 Days #30 tab Continue Lisinopril [Zestril] 2.5 mg PO W/SUPPER Montelukast Sodium [Singulair] 10 mg PO HS Albuterol Sulfate [Proair Hfa] 2 puff INHALATION RT-Q6H PRN PRN Reason: Shortness Of Breath Clopidogrel [Plavix] 75 mg PO DAILY Omeprazole [PriLOSEC] 20 mg PO DAILY Multivitamins, Thera [Multivitamin (formulary)] 1 tab PO DAILY Fluticasone/Salmeterol [Advair 500-50 Diskus] 1 puff INHALATION RT-BID levETIRAcetam [Keppra] 500 mg PO BID Potassium Chloride ER [K-Dur 20] 20 meq PO DAILY Simvastatin [Zocor] 20 mg PO HS Apixaban [Eliquis] 2.5 mg PO BID glipiZIDE [Glucotrol] 5 mg PO AC-TID tab Midodrine [ProAmatine] 2.5 mg PO AC-TID #90 tab diphenhydrAMINE [Benadryl] 25 mg PO HS Ascorbic Acid [Vitamin C] 500 mg PO DAILY Metoprolol Succinate [Toprol XL] 50 mg PO DAILY Fluticasone Nasal [place] [Flonase Nasal [place]] 1 spray EA NOSTRIL DAILY PRN PRN Reason: STUFFY NOSE Ipratropium-Albuterol Nebulize [Duoneb 0.5 mg-3 mg/3 ml Soln] 3 ml INHALATION RT-QID ampul.neb Furosemide [Lasix] 20 mg PO DAILY Isosorbide Mononitrate [Imdur] 120 mg PO DAILY Discharge Medication List Albuterol Sulfate [Proair Hfa] 2 puff INHALATION RT-Q6H PRN 01/11/14 [History] Clopidogrel [Plavix] 75 mg PO DAILY 01/11/14 [History] Lisinopril [Zestril] 2.5 mg PO W/SUPPER 01/11/14 [History] Montelukast Sodium [Singulair] 10 mg PO HS 01/11/14 [History] Multivitamins, Thera [Multivitamin (formulary)] 1 tab PO DAILY 01/11/14 [History] Omeprazole [PriLOSEC] 20 mg PO DAILY 01/11/14 [History] Fluticasone/Salmeterol [Advair 500-50 Diskus] 1 puff INHALATION RT-BID 03/28/15 [History] Potassium Chloride ER [K-Dur 20] 20 meq PO DAILY 06/27/18 [History] levETIRAcetam [Keppra] 500 mg PO BID 06/27/18 [History] Simvastatin [Zocor] 20 mg PO HS 08/14/18 [History] Apixaban [Eliquis] 2.5 mg PO BID 08/28/18 [History] Midodrine [ProAmatine] 2.5 mg PO AC-TID #90 tab 09/06/18 [Rx] glipiZIDE [Glucotrol] 5 mg PO AC-TID tab 09/06/18 [Rx] Ascorbic Acid [Vitamin C] 500 mg PO DAILY 06/01/19 [History] Fluticasone Nasal [place] [Flonase Nasal [place]] 1 spray EA NOSTRIL DAILY PRN 06/01/19 [History] Metoprolol Succinate [Toprol XL] 50 mg PO DAILY 06/01/19 [History] diphenhydrAMINE [Benadryl] 25 mg PO HS 06/01/19 [History] Ipratropium-Albuterol Nebulize [Duoneb 0.5 mg-3 mg/3 ml Soln] 3 ml INHALATION RT-QID ampul.neb 06/04/19 [Rx] Furosemide [Lasix] 20 mg PO DAILY 08/31/19 [History] Isosorbide Mononitrate [Imdur] 120 mg PO DAILY 08/31/19 [History] Cefdinir [Omnicef] 300 mg PO BID 7 Days #14 cap 09/02/19 [Rx] predniSONE 10 mg PO DIRECTED 12 Days #30 tab 09/02/19 [Rx] Follow up Appointment(s)/Referral(s): Florian Rdz MD [Primary Care Provider] - 1-2 days Santana Stanley MD [STAFF PHYSICIAN] - 1 Week Activity/Diet/Wound Care/Special Instructions: Activity as tolerated Diet heart healthy Discharge Disposition: HOME SELF-CARE
--- NOTE | 2019-09-07 16:56 | P.PN ---
Subjective Progress Note Date: 09/02/19 Principal diagnosis: Acute COPD exacerbation Purulent tracheobronchitis Obstructive sleep apnea Hypertension and hypertensive cardiovascular disease Dyslipidemia Type 2 diabetes mellitus Coronary artery disease 09/02/2019, patient seen eval examined during morning rounds patient has been doing well cuff congestion is improved he is requesting to be discharged due to illnesses , labs reviewed medications reviewed patient has been doing well relatively can be discharged home on oral antibiotics and steroids with follow- up as outpatient 2019, patient seen and evaluated examined doing well denies any chest pain breathing has improved, denies any nausea vomiting hopefully next 24 hours IV steroids and antibiotics changed to by mouth agree with discharge planning This is a 79-year-old well-known to me came into the hospital with 4 day history of increased cuff congestion and greenish to brownish sputum production has a significant history of end-stage COPD as well as obstructive sleep apnea, due to progressive symptoms decided come into emergency department was seen evaluated and examined and admitted into the hospital Objective - Vital Signs Vital signs: Vital Signs Temp 97.9 F 09/02/19 05:03 Pulse 72 09/02/19 07:58 Resp 20 09/02/19 05:03 BP 137/67 09/02/19 05:03 Pulse Ox 96 09/02/19 05:03 - Exam - Constitutional General appearance: average body habitus, cooperative, disheveled, mild distress - EENT Eyes: EOMI, PERRLA, normal appearance Ears: bilateral: normal - Neck Carotids: bilateral: upstroke normal - Respiratory Respiratory: bilateral: diminished, wheezing - Cardiovascular Rhythm: regular Heart sounds: normal: S1, S2 - Gastrointestinal General gastrointestinal: normal bowel sounds - Neurologic Neurologic: CNII-XII intact - Musculoskeletal Musculoskeletal: gait normal, generalized weakness, strength equal bilaterally - Labs CBC & Chem 7: 09/02/19 07:03 09/02/19 07:03 Assessment and Plan Assessment: Acute COPD exacerbation Purulent tracheobronchitis Obstructive sleep apnea Hypertension and hypertensive cardiovascular disease Dyslipidemia Type 2 diabetes mellitus Coronary artery disease Plan: Continue bronchodilator IV steroids, and can be switched overall pending discharge Broad-spectrum antibiotic Further recommendations pending plan of care as per clinical response of patient Time with Patient: Greater than 30
== END 2019-09-02 12:07 | disposition home or self-care (01) ==
LOC: EC 11:46 → 6NMEDSUR 14:05
PROVIDERS: ADMIT Internal Medicine; ATTEND Internal Medicine
DX: J44.1 Chronic obstructive pulmonary disease with (acute) exacerbation (principal); J44.0 Chronic obstructive pulmonary disease with (acute) lower respiratory infection; J20.9 Acute bronchitis, unspecified; I25.10 Atherosclerotic heart disease of native coronary artery without angina pectoris; Z95.5 Presence of coronary angioplasty implant and graft; Z86.73 Personal history of transient ischemic attack (TIA), and cerebral infarction without residual deficits; G47.33 Obstructive sleep apnea (adult) (pediatric); E11.9 Type 2 diabetes mellitus without complications; E78.5 Hyperlipidemia, unspecified; I10 Essential (primary) hypertension; I48.91 Unspecified atrial fibrillation; G40.909 Epilepsy, unspecified, not intractable, without status epilepticus; M19.90 Unspecified osteoarthritis, unspecified site; Z85.46 Personal history of malignant neoplasm of prostate; Z86.14 Personal history of Methicillin resistant Staphylococcus aureus infection; L71.9 Rosacea, unspecified; Z90.79 Acquired absence of other genital organ(s); Z90.49 Acquired absence of other specified parts of digestive tract; Z87.891 Personal history of nicotine dependence; Z80.0 Family history of malignant neoplasm of digestive organs; Z82.0 Family history of epilepsy and other diseases of the nervous system; Z88.5 Allergy status to narcotic agent; Z88.8 Allergy status to other drugs, medicaments and biological substances; Z79.01 Long term (current) use of anticoagulants; Z79.02 Long term (current) use of antithrombotics/antiplatelets; Z79.51 Long term (current) use of inhaled steroids; Z79.899 Other long term (current) drug therapy
CPT/HCPCS: 96376 ×2; 96361 ×3; 96374; 99285; 36415; 94640 ×5; 94760; 93005; 80053 ×3; 85025 ×3; 87502; 83036; 71046; G0378 ×3; J2930 ×3

== ENCOUNTER 2019-09-06 20:47 | Inpatient (IN) | payer MEDICARE ==
[2019-09-06] MEDS ORDERED: methylPREDNISolone SOD SUCCI 125 MG/2 ML VIAL IV STA (21:19)
[2019-09-06] MEDS ORDERED: IPRATROPIUM-ALBUTEROL 3 ML NEB INHALATION STA (21:19)
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
[2019-09-06 22:16] LABS: Basophils # (A) 0.1 k/uL (0-0.2); Basophils % (A) 1 %; Eosinophils # (A) 1.4 k/uL (0-0.7); Eosinophils % (A) 14 %; HCT 42.6 % (39.0-53.0); HGB 13.9 gm/dL (13.0-17.5); Lymphocytes # (A) 2.1 k/uL (1.0-4.8); Lymphocytes % (A) 20 %; MCH 28.8 pg (25.0-35.0); MCHC 32.5 g/dL (31.0-37.0); MCV 88.6 fL (80.0-100.0); Mean Platelet Volume 7.1; Monocytes # (A) 0.8 k/uL (0-1.0); Monocytes % (A) 7 %; Neutrophils # (A) 5.9 k/uL (1.3-7.7); Neutrophils % (A) 56 %; Platelet Count 257 k/uL (150-450); RDW 12.8 % (11.5-15.5); WBC 10.4 k/uL (3.8-10.6)
[2019-09-06 22:26] LABS: ALT 16 U/L (4-49); AST 21 U/L (17-59); African American GFR (CKD) >90 (>60 ml/min/1.73 sqM); Albumin 3.8 g/dL (3.5-5.0); Alkaline Phosphatase 57 U/L (38-126); Anion Gap 7 mmol/L; Blood Urea Nitrogen 13 mg/dL (9-20); Calcium 8.8 mg/dL (8.4-10.2); Carbon Dioxide 25 mmol/L (22-30); Chloride 101 mmol/L (98-107); Glucose 227 mg/dL (74-99); Magnesium 2.2 mg/dL (1.6-2.3); Non-African American GFR(CKD) 87 (>60 ml/min/1.73 sqM); Potassium 4.3 mmol/L (3.5-5.1); Sodium 133 mmol/L (137-145); Total Bilirubin 0.5 mg/dL (0.2-1.3); Total Protein 6.5 g/dL (6.3-8.2)
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
[2019-09-07 00:33] LABS: Glucose,Whole Blood 194 mg/dL (75-99)
[2019-09-07] MEDS: methylPREDNISolone SOD SUCCI 125 MG/2 ML VIAL IV SCH ×4 (00:33→17:08)
[2019-09-07] MEDS: AZITHROMYCIN 500 MG TAB PO SCH ×2 (00:34→08:08)
[2019-09-07] MEDS: SODIUM CHLORIDE 0.9% 1,000 ML IV SCH ×3 (00:34→21:32)
[2019-09-07] MEDS: IPRATROPIUM-ALBUTEROL 3 ML NEB INHALATION PRN (01:31)
[2019-09-07] MEDS ORDERED: ALBUTEROL NEBULIZED 2.5 MG/3 ML INHALATION PRN (02:00)
[2019-09-07] MEDS: levETIRAcetam 500 MG TAB PO SCH ×3 (02:17→21:12)
[2019-09-07] MEDS: APIXABAN 2.5 MG TABLET PO SCH ×3 (02:17→21:12)
[2019-09-07] MEDS: ATORVASTATIN 10 MG TAB PO SCH ×2 (02:17→21:12)
[2019-09-07] MEDS: diphenhydrAMINE 25 MG CAP PO SCH ×2 (02:17→21:12)
[2019-09-07] MEDS: MONTELUKAST 10 MG TAB PO SCH ×2 (02:18→21:12)
[2019-09-07] MEDS ORDERED: ACETAMINOPHEN TAB 325 MG TAB PO PRN (06:00)
[2019-09-07 07:10] LABS: Glucose,Whole Blood 272 mg/dL (75-99)
[2019-09-07] MEDS: ISOSORBIDE MONONITRATE ER 60 MG TAB.ER.24H PO SCH (08:08)
[2019-09-07] MEDS: MIDODRINE 5 MG TAB PO SCH ×3 (08:08→17:07)
[2019-09-07] MEDS: ASCORBIC ACID 500 MG TAB PO SCH (08:08)
[2019-09-07] MEDS: FUROSEMIDE 20 MG TAB PO SCH (08:08)
[2019-09-07] MEDS: CLOPIDOGREL 75 MG TAB PO SCH (08:08)
[2019-09-07] MEDS: MULTIVITAMINS, THERA 1 EACH TAB PO SCH (08:08)
[2019-09-07] MEDS: METOPROLOL SUCCINATE (ER) 50 MG TAB.ER.24H PO SCH (08:08)
[2019-09-07] MEDS: PANTOPRAZOLE 40 MG TABLET PO SCH (08:08)
[2019-09-07] MEDS: POTASSIUM CHLORIDE ER 20 MEQ TAB.ER PO SCH (08:08)
[2019-09-07] MEDS: glipiZIDE 5 MG TAB PO SCH ×3 (08:08→17:07)
[2019-09-07] MEDS ORDERED: FLUTICASONE 50MCG/SPRAY NASAL 16GM EA NOSTRIL PRN (09:00)
[2019-09-07] MEDS: IPRATROPIUM-ALBUTEROL 3 ML NEB INHALATION SCH ×8 (09:09→19:48)
[2019-09-07] MEDS: SYMBICORT 160-4.5 MCG INHALER INHALATION SCH ×2 (09:09→19:47)
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
[2019-09-07 12:18] LABS: Glucose,Whole Blood 270 mg/dL (75-99)
[2019-09-07] MEDS: INSULIN ASPART (NovoLOG) 100 UNIT/ML VIAL SQ SCH ×3 (12:23→21:30)
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
[2019-09-07 16:59] LABS: Glucose,Whole Blood 208 mg/dL (75-99)
[2019-09-07] MEDS: LISINOPRIL 2.5 MG TAB PO SCH (17:07)
[2019-09-07] MEDS: guaiFENesin 600 MG TABLET.ER PO SCH (19:35)
[2019-09-07 20:51] LABS: Glucose,Whole Blood 260 mg/dL (75-99)
[2019-09-08] MEDS: IPRATROPIUM-ALBUTEROL 3 ML NEB INHALATION PRN ×3 (00:34→23:35)
[2019-09-08] MEDS: methylPREDNISolone SOD SUCCI 125 MG/2 ML VIAL IV SCH ×4 (00:47→17:35)
[2019-09-08] MEDS: SODIUM CHLORIDE 0.9% 1,000 ML IV SCH (06:15)
[2019-09-08 07:26] LABS: Glucose,Whole Blood 252 mg/dL (75-99)
[2019-09-08] MEDS: levETIRAcetam 500 MG TAB PO SCH ×2 (08:12→21:33)
[2019-09-08] MEDS: METOPROLOL SUCCINATE (ER) 50 MG TAB.ER.24H PO SCH (08:12)
[2019-09-08] MEDS: glipiZIDE 5 MG TAB PO SCH ×3 (08:12→17:34)
[2019-09-08] MEDS: POTASSIUM CHLORIDE ER 20 MEQ TAB.ER PO SCH (08:12)
[2019-09-08] MEDS: APIXABAN 2.5 MG TABLET PO SCH ×2 (08:13→21:33)
[2019-09-08] MEDS: ISOSORBIDE MONONITRATE ER 60 MG TAB.ER.24H PO SCH (08:13)
[2019-09-08] MEDS: CLOPIDOGREL 75 MG TAB PO SCH (08:13)
[2019-09-08] MEDS: FAMOTIDINE 20 MG TAB PO SCH (08:13)
[2019-09-08] MEDS: FUROSEMIDE 20 MG TAB PO SCH (08:13)
[2019-09-08] MEDS: AZITHROMYCIN 500 MG TAB PO SCH (08:13)
[2019-09-08] MEDS: MULTIVITAMINS, THERA 1 EACH TAB PO SCH (08:13)
[2019-09-08] MEDS: guaiFENesin 600 MG TABLET.ER PO SCH ×2 (08:13→21:33)
[2019-09-08] MEDS: ASCORBIC ACID 500 MG TAB PO SCH (08:13)
[2019-09-08] MEDS: MIDODRINE 5 MG TAB PO SCH ×3 (08:13→17:35)
[2019-09-08] MEDS: PANTOPRAZOLE 40 MG TABLET PO SCH (08:13)
[2019-09-08] MEDS: INSULIN ASPART (NovoLOG) 100 UNIT/ML VIAL SQ SCH ×4 (08:18→21:32)
[2019-09-08] MEDS: IPRATROPIUM-ALBUTEROL 3 ML NEB INHALATION SCH ×4 (08:23→19:59)
[2019-09-08] MEDS: SYMBICORT 160-4.5 MCG INHALER INHALATION SCH ×2 (08:23→19:59)
[2019-09-08 08:48] LABS: Basophils # (A) 0.1 k/uL (0-0.2); Basophils % (A) 0 %; Eosinophils % (A) 0 %; HCT 42.9 % (39.0-53.0); HGB 13.8 gm/dL (13.0-17.5); Lymphocytes # (A) 1.1 k/uL (1.0-4.8); Lymphocytes % (A) 7 %; MCH 28.7 pg (25.0-35.0); MCHC 32.2 g/dL (31.0-37.0); MCV 89.2 fL (80.0-100.0); Mean Platelet Volume 7.2; Monocytes # (A) 0.6 k/uL (0-1.0); Monocytes % (A) 4 %; Neutrophils # (A) 13.4 k/uL (1.3-7.7); Neutrophils % (A) 88 %; Platelet Count 291 k/uL (150-450); RBC 4.81 m/uL (4.30-5.90); RDW 12.9 % (11.5-15.5); WBC 15.3 k/uL (3.8-10.6)
[2019-09-08 09:00] LABS: ALT 19 U/L (4-49); AST 26 U/L (17-59); African American GFR (CKD) >90 (>60 ml/min/1.73 sqM); Albumin 4.2 g/dL (3.5-5.0); Alkaline Phosphatase 65 U/L (38-126); Anion Gap 12 mmol/L; Blood Urea Nitrogen 16 mg/dL (9-20); Calcium 8.9 mg/dL (8.4-10.2); Carbon Dioxide 24 mmol/L (22-30); Chloride 101 mmol/L (98-107); Glucose 262 mg/dL (74-99); Non-African American GFR(CKD) 89 (>60 ml/min/1.73 sqM); Potassium 4.3 mmol/L (3.5-5.1); Sodium 137 mmol/L (137-145); Total Bilirubin 0.5 mg/dL (0.2-1.3); Total Protein 7.1 g/dL (6.3-8.2)
--- NOTE | 2019-09-08 10:12 | P.PN ---
Subjective Progress Note Date: 09/08/19 This is a 79-year-old male patient who presented with complaints of increased shortness of breath and wheezing. Patient was recently admitted and discharged last week. Patient reports that he did feel much improved but then started to progressively get worse over the past couple days. Patient states he was very eager to go home in order to see his who is at [facility]. Patient does have past medical history of asthma, coronary artery disease, COPD, CVA, diabetes mellitus, hyperlipidemia, hypertension, myocardial infarction, osteoarthritis, seizure disorder, prostate cancer and previous heart cath with stents. Chest x-ray completed showing mild pleural diaphragmatic lying left lung base unchanged. No acute lung disease. EKG completed showing normal sinus rhythm septal infarct, age undetermined. Pulmonary services have been consulted. Patient started on Solu-Medrol and DuoNeb breathing treatments. Patient also started on azithromycin. Lactic acid elevated at 2. 9 repeat lactic acid 0.9. On examination patient still has significant expiratory wheezing. Patient denies chest pain. Patient denies nausea vomiting or diarrhea. Patient denies any urinary burning or frequency On 09/08/2019 patient is alert and oriented 3. Patient still having significant wheezing. Patient remains on azithromycin and Solu-Medrol. Patient verbalized understanding that he will likely have to stay throughout the weekend. Pulmonary services are following. Patient denies chest pain. Patient denies nausea vomiting or diarrhea. Patient denies any urinary burning or frequency. Patient does state he feels slightly more improved from yesterday. Continue Mucinex. Sputum culture ordered Objective - Vital Signs Vital signs: Vital Signs Temp 98.0 F 09/08/19 06:05 Pulse 84 09/08/19 08:35 Resp 24 09/08/19 06:05 BP 147/70 09/08/19 06:05 Pulse Ox 94 L 09/08/19 06:05 Intake & Output 09/07/19 09/08/19 09/08/19 18:59 06:59 18:59 Output Total 700 1400 480 Balance -700 -1400 -480 Weight 90.7 kg Output: Urine 700 1400 480 Other: Voiding Method Toilet Toilet # Voids 1 - Exam Head normocephalic Neck supple Lungs diminished bilaterally with significant expiratory wheezing Heart regular rate and rhythm S1-S2, no rub or gallop Abdomen is soft nontender nondistended positive bowel sounds no hepatosplenomegaly Extremities no edema Neuro alert and orientated to 3 - Labs CBC & Chem 7: 09/08/19 07:39 09/08/19 07:39 Labs: Abnormal Lab Results - Last 24 Hours (Table) 09/07/19 09/07/19 09/07/19 Range/Units 12:03 16:51 20:50 WBC (3.8-10.6) k/uL Neutrophils # (1.3-7.7) k/uL Glucose (74-99) mg/dL POC Glucose (mg/dL) 270 H 208 H 260 H (75-99) mg/dL 09/08/19 09/08/19 09/08/19 Range/Units 07:19 07:39 07:39 WBC 15.3 H (3.8-10.6) k/uL Neutrophils # 13.4 H (1.3-7.7) k/uL Glucose 262 H (74-99) mg/dL POC Glucose (mg/dL) 252 H (75-99) mg/dL Microbiology - Last 24 Hours (Table) 09/06/19 21:46 Blood Culture - Preliminary Blood No Growth after 24 hours Assessment and Plan Assessment: 1. Increased shortness of breath related to acute COPD exacerbation and acute purulent bronchitis. Chest x-ray completed showing mild pleural diaphragmatic scarring left lung base unchanged. No acute lung disease. Patient started Solu-Medrol azithromycin. Continue DuoNeb breathing treatments. Pulmonary services have been consulted. sputum culture ordered 2. Acute purulent tracheobronchitis. Patient started on azithromycin. Pulmonary service is consulted 3. History of chronic atrial fibrillation patient maintained on eliquis 4. History of coronary disease with previous stent placement. Maintained on Plavix 5. History of COPD 6. History of prostate cancer 7. History of diabetes mellitus type 2. sliding scale insulin has been ordered. Hemoglobin A1c has been ordered 8. History of seizures. Maintained on Keppra DVT prophylaxis eliquis. GI prophylaxis Pepcid I performed an examination of the patient and discussed their management with the Nurse Practitioner. I have reviewed the Nurse Practitioner's notes and agree with the documented findings and plan of care
[2019-09-08 12:23] LABS: Glucose,Whole Blood 243 mg/dL (75-99)
--- NOTE | 2019-09-08 14:58 | P.PN ---
Subjective Progress Note Date: 09/08/19 Principal diagnosis: Acute COPD exacerbation Purulent tracheobronchitis Chronic atrial fibrillation History of coronary artery disease stent placement Obstructive sleep apnea Prostate cancer 09/08/2019, patient seen and evaluated examined during the rounds labs reviewed medications reviewed care plan discussed with the patient is still have ongoing intermittent cough congestion shortness of breath on continue current course of treatment with IV steroids antibiotics and breathing treatments O follow clinical course closely, care plan discussed with the primary service at length This is a 79-year-old with end-stage severe COPD emphysema also has a problem with obstructive sleep apnea patient was recently in the hospital improved and discharged but in the last one today having increasing shortness of breath has been wheezing cough and shortness of breath decided to come into the hospital patient was evaluated in the emergency department chest x-ray continued to show mild left basal scarring or new active infiltrate identified lab status stable white cell count normal however lactic acid was elevated 2.9 with rehydration improved 0.9, patient has been admitted into hospital for IV steroids breathing treatments Objective - Vital Signs Vital signs: Vital Signs Temp 98.0 F 09/08/19 06:05 Pulse 88 09/08/19 11:39 Resp 24 09/08/19 08:00 BP 147/70 09/08/19 06:05 Pulse Ox 94 L 09/08/19 06:05 Intake & Output 09/07/19 09/08/19 09/08/19 18:59 06:59 18:59 Output Total 700 1400 480 Balance -700 -1400 -480 Weight 90.7 kg Output: Urine 700 1400 480 Other: Voiding Method Toilet Toilet Toilet # Voids 1 - Exam - Constitutional General appearance: average body habitus, cooperative, disheveled, mild distress - EENT Eyes: EOMI, PERRLA, dentition normal, normal appearance ENT: normal oropharynx Ears: bilateral: normal - Neck Neck: normal ROM Carotids: bilateral: upstroke normal - Respiratory Respiratory: bilateral: diminished, rhonchi, wheezing, prolonged expiration, ne gative: CTA, dullness, rales, prolonged inspiration - Cardiovascular Rhythm: regular Heart sounds: normal: S1, S2 - Gastrointestinal General gastrointestinal: normal bowel sounds - Integumentary Integumentary: normal turgor - Neurologic Neurologic: CNII-XII intact - Musculoskeletal Musculoskeletal: gait normal, generalized weakness, strength equal bilaterally - Psychiatric Psychiatric: A&O x's 3, appropriate affect, intact judgment & insight - Labs CBC & Chem 7: 09/08/19 07:39 09/08/19 07:39 Labs: Abnormal Lab Results - Last 24 Hours (Table) 09/07/19 09/07/19 09/08/19 Range/Units 16:51 20:50 07:19 WBC (3.8-10.6) k/uL Neutrophils # (1.3-7.7) k/uL Glucose (74-99) mg/dL POC Glucose (mg/dL) 208 H 260 H 252 H (75-99) mg/dL 09/08/19 09/08/19 09/08/19 Range/Units 07:39 07:39 12:21 WBC 15.3 H (3.8-10.6) k/uL Neutrophils # 13.4 H (1.3-7.7) k/uL Glucose 262 H (74-99) mg/dL POC Glucose (mg/dL) 243 H (75-99) mg/dL Microbiology - Last 24 Hours (Table) 09/06/19 21:46 Blood Culture - Preliminary Blood No Growth after 24 hours Assessment and Plan Assessment: Acute COPD exacerbation Purulent tracheobronchitis Chronic atrial fibrillation History of coronary artery disease stent placement Obstructive sleep apnea Prostate cancer Plan: IV steroids Breathing treatments Continue home medications Broad-spectrum antibiotics Sputum studies if able to obtain Time with Patient: Greater than 30
[2019-09-08 17:19] LABS: Glucose,Whole Blood 175 mg/dL (75-99)
[2019-09-08] MEDS: LISINOPRIL 2.5 MG TAB PO SCH (17:34)
[2019-09-08 19:08] LABS: Hemoglobin A1C 8.2 % (4.0-6.0)
[2019-09-08 20:02] LABS: Glucose,Whole Blood 191 mg/dL (75-99)
[2019-09-08] MEDS: diphenhydrAMINE 25 MG CAP PO SCH (21:33)
[2019-09-08] MEDS: ATORVASTATIN 10 MG TAB PO SCH (21:33)
[2019-09-08] MEDS: MONTELUKAST 10 MG TAB PO SCH (21:33)
[2019-09-09] MEDS: methylPREDNISolone SOD SUCCI 125 MG/2 ML VIAL IV SCH ×4 (00:16→17:01)
[2019-09-09] MEDS: IPRATROPIUM-ALBUTEROL 3 ML NEB INHALATION PRN ×2 (05:05→23:49)
[2019-09-09 07:18] LABS: Glucose,Whole Blood 214 mg/dL (75-99)
[2019-09-09] MEDS: IPRATROPIUM-ALBUTEROL 3 ML NEB INHALATION SCH ×4 (08:00→19:23)
[2019-09-09] MEDS: SYMBICORT 160-4.5 MCG INHALER INHALATION SCH ×2 (08:01→19:24)
[2019-09-09] MEDS: MIDODRINE 5 MG TAB PO SCH ×3 (08:26→17:00)
[2019-09-09] MEDS: FAMOTIDINE 20 MG TAB PO SCH (08:26)
[2019-09-09] MEDS: APIXABAN 2.5 MG TABLET PO SCH ×2 (08:26→20:18)
[2019-09-09] MEDS: ISOSORBIDE MONONITRATE ER 60 MG TAB.ER.24H PO SCH (08:26)
[2019-09-09] MEDS: glipiZIDE 5 MG TAB PO SCH ×3 (08:26→17:01)
[2019-09-09] MEDS: PANTOPRAZOLE 40 MG TABLET PO SCH (08:27)
[2019-09-09] MEDS: METOPROLOL SUCCINATE (ER) 50 MG TAB.ER.24H PO SCH (08:27)
[2019-09-09] MEDS: guaiFENesin 600 MG TABLET.ER PO SCH ×2 (08:27→20:18)
[2019-09-09] MEDS: POTASSIUM CHLORIDE ER 20 MEQ TAB.ER PO SCH (08:27)
[2019-09-09] MEDS: levETIRAcetam 500 MG TAB PO SCH ×2 (08:27→20:18)
[2019-09-09] MEDS: ASCORBIC ACID 500 MG TAB PO SCH (08:27)
[2019-09-09] MEDS: AZITHROMYCIN 500 MG TAB PO SCH (08:27)
[2019-09-09] MEDS: CLOPIDOGREL 75 MG TAB PO SCH (08:27)
[2019-09-09] MEDS: MULTIVITAMINS, THERA 1 EACH TAB PO SCH (08:27)
[2019-09-09] MEDS: FUROSEMIDE 20 MG TAB PO SCH (08:27)
[2019-09-09] MEDS: INSULIN ASPART (NovoLOG) 100 UNIT/ML VIAL SQ SCH ×4 (08:30→21:59)
[2019-09-09 08:37] LABS: Basophils % (A) 0 %; Eosinophils % (A) 0 %; HCT 43.5 % (39.0-53.0); Lymphocytes # (A) 0.8 k/uL (1.0-4.8); Lymphocytes % (A) 5 %; MCH 28.6 pg (25.0-35.0); MCHC 32.1 g/dL (31.0-37.0); Monocytes # (A) 0.5 k/uL (0-1.0); Monocytes % (A) 3 %; Neutrophils # (A) 13.4 k/uL (1.3-7.7); Neutrophils % (A) 90 %; Platelet Count 291 k/uL (150-450); RBC 4.89 m/uL (4.30-5.90); RDW 12.9 % (11.5-15.5); WBC 14.9 k/uL (3.8-10.6)
[2019-09-09 08:40] LABS: ALT 19 U/L (4-49); AST 23 U/L (17-59); African American GFR (CKD) >90 (>60 ml/min/1.73 sqM); Albumin 3.9 g/dL (3.5-5.0); Alkaline Phosphatase 60 U/L (38-126); Anion Gap 9 mmol/L; Blood Urea Nitrogen 15 mg/dL (9-20); Calcium 8.7 mg/dL (8.4-10.2); Carbon Dioxide 25 mmol/L (22-30); Chloride 102 mmol/L (98-107); Glucose 232 mg/dL (74-99); Non-African American GFR(CKD) 88 (>60 ml/min/1.73 sqM); Sodium 136 mmol/L (137-145); Total Bilirubin 0.5 mg/dL (0.2-1.3); Total Protein 6.8 g/dL (6.3-8.2)
--- NOTE | 2019-09-09 10:09 | P.PN ---
Subjective Progress Note Date: 09/09/19 This is a 79-year-old male patient who presented with complaints of increased shortness of breath and wheezing. Patient was recently admitted and discharged last week. Patient reports that he did feel much improved but then started to progressively get worse over the past couple days. Patient states he was very eager to go home in order to see his who is at [facility]. Patient does have past medical history of asthma, coronary artery disease, COPD, CVA, diabetes mellitus, hyperlipidemia, hypertension, myocardial infarction, osteoarthritis, seizure disorder, prostate cancer and previous heart cath with stents. Chest x-ray completed showing mild pleural diaphragmatic lying left lung base unchanged. No acute lung disease. EKG completed showing normal sinus rhythm septal infarct, age undetermined. Pulmonary services have been consulted. Patient started on Solu-Medrol and DuoNeb breathing treatments. Patient also started on azithromycin. Lactic acid elevated at 2. 9 repeat lactic acid 0.9. On examination patient still has significant expiratory wheezing. Patient denies chest pain. Patient denies nausea vomiting or diarrhea. Patient denies any urinary burning or frequency On 09/08/2019 patient is alert and oriented 3. Patient still having significant wheezing. Patient remains on azithromycin and Solu-Medrol. Patient verbalized understanding that he will likely have to stay throughout the weekend. Pulmonary services are following. Patient denies chest pain. Patient denies nausea vomiting or diarrhea. Patient denies any urinary burning or frequency. Patient does state he feels slightly more improved from yesterday. Continue Mucinex. Sputum culture ordered On 09/09/2019 patient is alert and oriented 3. Patient reports some improvement with shortness breath and wheezing. Patient still had significant wheezing to auscultation. Cardiology services have been consulted due to known patient's cardiac history. 2-D echo ordered. Patient ordered for cardiac telemetry. At this time patient denies chest pain. Patient denies nausea vomiting or diarrhea. Patient denies any urinary burning or frequency Objective - Vital Signs Vital signs: Vital Signs Temp 98.0 F 09/09/19 05:00 Pulse 80 09/09/19 08:18 Resp 20 09/09/19 05:00 BP 131/65 09/09/19 05:00 Pulse Ox 95 09/09/19 05:00 Intake & Output 09/08/19 09/09/19 09/09/19 18:59 06:59 18:59 Intake Total 850 Output Total 680 Balance -680 850 Intake: Oral 850 Output: Urine 680 Other: Voiding Method Toilet Toilet # Voids 1 - Exam Head normocephalic Neck supple Lungs diminished bilaterally with significant expiratory wheezing Heart regular rate and rhythm S1-S2, no rub or gallop Abdomen is soft nontender nondistended positive bowel sounds no hepatosplenomegaly Extremities no edema Neuro alert and orientated to 3 - Labs CBC & Chem 7: 09/09/19 07:59 09/09/19 07:59 Labs: Abnormal Lab Results - Last 24 Hours (Table) 09/08/19 09/08/19 09/08/19 Range/Units 07:39 12:21 17:17 WBC (3.8-10.6) k/uL Neutrophils # (1.3-7.7) k/uL Lymphocytes # (1.0-4.8) k/uL Sodium (137-145) mmol/L Glucose (74-99) mg/dL POC Glucose (mg/dL) 243 H 175 H (75-99) mg/dL Hemoglobin A1c 8.2 H (4.0-6.0) % 09/08/19 09/09/19 09/09/19 Range/Units 19:59 07:14 07:59 WBC 14.9 H (3.8-10.6) k/uL Neutrophils # 13.4 H (1.3-7.7) k/uL Lymphocytes # 0.8 L (1.0-4.8) k/uL Sodium (137-145) mmol/L Glucose (74-99) mg/dL POC Glucose (mg/dL) 191 H 214 H (75-99) mg/dL Hemoglobin A1c (4.0-6.0) % 09/09/19 Range/Units 07:59 WBC (3.8-10.6) k/uL Neutrophils # (1.3-7.7) k/uL Lymphocytes # (1.0-4.8) k/uL Sodium 136 L (137-145) mmol/L Glucose 232 H (74-99) mg/dL POC Glucose (mg/dL) (75-99) mg/dL Hemoglobin A1c (4.0-6.0) % Microbiology - Last 24 Hours (Table) 09/06/19 21:46 Blood Culture - Preliminary Blood No Growth after 48 hours 09/08/19 08:40 Gram Stain - Preliminary Sputum Assessment and Plan Assessment: 1. Increased shortness of breath related to acute COPD exacerbation and acute purulent bronchitis. Chest x-ray completed showing mild pleural diaphragmatic scarring left lung base unchanged. No acute lung disease. Patient started Solu-Medrol azithromycin. Continue DuoNeb breathing treatments. Pulmonary services have been consulted. sputum culture ordered. Cardiology services have been consulted 2-D echo has been ordered 2. Acute purulent tracheobronchitis. Patient started on azithromycin. Pulmonary service is consulted 3. History of chronic atrial fibrillation patient maintained on eliquis 4. History of coronary disease with previous stent placement. Maintained on Plavix 5. History of COPD 6. History of prostate cancer 7. History of diabetes mellitus type 2. sliding scale insulin has been ordered . Hemoglobin A1c has been ordered 8. History of seizures. Maintained on Keppra DVT prophylaxis eliquis. GI prophylaxis Pepcid Cardiology and pulmonary service is consulted 2-D echo ordered remains on IV Solu-Medrol and azithromycin I performed an examination of the patient and discussed their management with the Nurse Practitioner. I have reviewed the Nurse Practitioner's notes and agree with the documented findings and plan of care
--- NOTE | 2019-09-09 10:59 | ECHOF ---
Referral Reason:shortness of breath MEASUREMENTS -------- HEIGHT: 167.6 cm WEIGHT: 90.3 kg BP: 147/70 RVIDd: 3.1 cm (< 3.3) IVSd: 1.0 cm (0.6 - 1.1) LVIDd: 4.9 cm (3.9 - 5.3) LVPWd: 0.9 cm (0.6 - 1.1) IVSs: 1.3 cm LVIDs: 3.7 cm LVPWs: 1.9 cm LAESV Index (A-L): 31.55 ml/m Ao Diam: 3.8 cm (2.0 - 3.7) AV Cusp: 2.1 cm (1.5 - 2.6) LA Diam: 3.0 cm (2.7 - 3.8) MV EXCURSION: 20.304 mm (> 18.000) MV EF SLOPE: 52 mm/s (70 - 150) EPSS: 2.0 cm MV E Alexis: 0.94 m/s MV DecT: 305 ms MV A Alexis: 1.10 m/s MV E/A Ratio: 0.85 AR PHT: 340 ms RAP: 15.00 mmHg RVSP: 23.29 mmHg TAPSE: 28.50 mm FINDINGS -------- Sinus rhythm. This was a technically adequate study. The left ventricular size is normal. Left ventricular wall thickness is normal. Overall left vent ricular systolic function is normal with, an EF between 55 - 60 %. Normal LAP Grade 1 Diastolic Dys function. The right ventricle is normal in size. LA is midly dilated 29-33ml/m2. The right atrial size is normal. The aortic valve is trileaflet and appears structurally normal. Trace amount of aortic regurgitatio n. The mitral valve is normal. There is trace mitral regurgitation. The tricuspid valve appears structurally normal. Trace tricuspid regurgitation present. Right alondra tricular systolic pressure is normal at < 35 mmHg. There is no pulmonic regurgitation present. The aortic root is dilated measuring 3.8 cm. The inferior vena cava is mildly dilated. There is no pericardial effusion. CONCLUSIONS -------- 1. Sinus rhythm. 2. This was a technically adequate study. 3. The left ventricular size is normal. 4. Left ventricular wall thickness is normal. 5. Overall left ventricular systolic function is normal with, an EF between 55 - 60 %. 6. Normal LAP Grade 1 Diastolic Dysfunction. 7. The right ventricle is normal in size. 8. LA is midly dilated 29-33ml/m2. 9. The right atrial size is normal. 10. The aortic valve is trileaflet and appears structurally normal. 11. Trace amount of aortic regurgitation. 12. The mitral valve is normal. 13. There is trace mitral regurgitation. 14. The tricuspid valve appears structurally normal. 15. Trace tricuspid regurgitation present. 16. Right ventricular systolic pressure is normal at < 35 mmHg. 17. There is no pulmonic regurgitation present. 18. The aortic root is dilated measuring 3.8 cm. 19. The inferior vena cava is mildly dilated. 20. There is no pericardial effusion. WHALE FISHERMAN: Macey Bertrand RDCS
[2019-09-09 11:46] LABS: Glucose,Whole Blood 236 mg/dL (75-99)
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
--- NOTE | 2019-09-09 16:42 | P.PN ---
Subjective Progress Note Date: 09/09/19 Principal diagnosis: Acute COPD exacerbation Purulent tracheobronchitis Chronic atrial fibrillation History of coronary artery disease stent placement Obstructive sleep apnea Prostate cancer 09/09/2019, patient seen eval examined during the rounds labs reviewed medications reviewed care plan discussed with the patient at length still have ongoing wheezing cough and congestion is present, sputum cultures are pending, patient has been evaluated by cardiovascular services for diastolic heart failure, computed to be on antibiotics breathing treatment and steroids 09/08/2019, patient seen and evaluated examined during the rounds labs reviewed medications reviewed care plan discussed with the patient is still have ongoing intermittent cough congestion shortness of breath on continue current course of treatment with IV steroids antibiotics and breathing treatments O follow clinical course closely, care plan discussed with the primary service at length This is a 79-year-old with end-stage severe COPD emphysema also has a problem with obstructive sleep apnea patient was recently in the hospital improved and discharged but in the last one today having increasing shortness of breath has been wheezing cough and shortness of breath decided to come into the hospital patient was evaluated in the emergency department chest x-ray continued to show mild left basal scarring or new active infiltrate identified lab status stable white cell count normal however lactic acid was elevated 2.9 with rehydration improved 0.9, patient has been admitted into hospital for IV steroids breathing treatments Objective - Vital Signs Vital signs: Vital Signs Temp 97.7 F 09/09/19 15:02 Pulse 80 09/09/19 15:34 Resp 18 09/09/19 16:00 BP 128/69 09/09/19 15:02 Pulse Ox 94 L 09/09/19 15:02 Intake & Output 09/08/19 09/09/19 09/09/19 18:59 06:59 18:59 Intake Total 850 900 Output Total 680 Balance -680 850 900 Intake: Oral 850 900 Output: Urine 680 Other: Voiding Method Toilet Toilet Toilet # Voids 1 2 - Exam - Constitutional General appearance: average body habitus, cooperative, disheveled, mild distress - EENT Eyes: EOMI, PERRLA, dentition normal, normal appearance ENT: normal oropharynx Ears: bilateral: normal - Neck Neck: normal ROM Carotids: bilateral: upstroke normal - Respiratory Respiratory: bilateral: diminished, rhonchi, wheezing, prolonged expiration, negative: CTA, dullness, rales, prolonged inspiration - Cardiovascular Rhythm: regular Heart sounds: normal: S1, S2 - Gastrointestinal General gastrointestinal: normal bowel sounds - Integumentary Integumentary: normal turgor - Neurologic Neurologic: CNII-XII intact - Musculoskeletal Musculoskeletal: gait normal, generalized weakness, strength equal bilaterally - Psychiatric Psychiatric: A&O x's 3, appropriate affect, intact judgment & insight - Labs CBC & Chem 7: 09/09/19 07:59 09/09/19 07:59 Labs: Abnormal Lab Results - Last 24 Hours (Table) 09/08/19 09/08/19 09/08/19 Range/Units 07:39 17:17 19:59 WBC (3.8-10.6) k/uL Neutrophils # (1.3-7.7) k/uL Lymphocytes # (1.0-4.8) k/uL Sodium (137-145) mmol/L Glucose (74-99) mg/dL POC Glucose (mg/dL) 175 H 191 H (75-99) mg/dL Hemoglobin A1c 8.2 H (4.0-6.0) % 09/09/19 09/09/19 09/09/19 Range/Units 07:14 07:59 07:59 WBC 14.9 H (3.8-10.6) k/uL Neutrophils # 13.4 H (1.3-7.7) k/uL Lymphocytes # 0.8 L (1.0-4.8) k/uL Sodium 136 L (137-145) mmol/L Glucose 232 H (74-99) mg/dL POC Glucose (mg/dL) 214 H (75-99) mg/dL Hemoglobin A1c (4.0-6.0) % 09/09/19 Range/Units 11:44 WBC (3.8-10.6) k/uL Neutrophils # (1.3-7.7) k/uL Lymphocytes # (1.0-4.8) k/uL Sodium (137-145) mmol/L Glucose (74-99) mg/dL POC Glucose (mg/dL) 236 H (75-99) mg/dL Hemoglobin A1c (4.0-6.0) % Microbiology - Last 24 Hours (Table) 09/06/19 21:46 Blood Culture - Preliminary Blood No Growth after 48 hours 09/08/19 08:40 Gram Stain - Preliminary Sputum Assessment and Plan Assessment: Acute COPD exacerbation Purulent tracheobronchitis Chronic atrial fibrillation History of coronary artery disease stent placement Obstructive sleep apnea Chronic diastolic heart failure Prostate cancer Plan: IV steroids Breathing treatments Continue home medications Broad-spectrum antibiotics Sputum studies if able to obtain Further recommendations pending plan of care as per clinical response of the patient Time with Patient: Greater than 30
[2019-09-09 16:53] LABS: Glucose,Whole Blood 177 mg/dL (75-99)
[2019-09-09] MEDS: LISINOPRIL 2.5 MG TAB PO SCH (17:01)
[2019-09-09] MEDS: MONTELUKAST 10 MG TAB PO SCH (20:17)
[2019-09-09] MEDS: ATORVASTATIN 10 MG TAB PO SCH (20:17)
[2019-09-09] MEDS: diphenhydrAMINE 25 MG CAP PO SCH (20:18)
[2019-09-09 21:29] LABS: Glucose,Whole Blood 254 mg/dL (75-99)
[2019-09-10] MEDS: methylPREDNISolone SOD SUCCI 125 MG/2 ML VIAL IV SCH ×5 (00:02→23:05)
[2019-09-10] MEDS: IPRATROPIUM-ALBUTEROL 3 ML NEB INHALATION PRN (03:55)
[2019-09-10 07:05] LABS: Glucose,Whole Blood 236 mg/dL (75-99)
[2019-09-10] MEDS: SYMBICORT 160-4.5 MCG INHALER INHALATION SCH ×2 (07:17→19:57)
[2019-09-10] MEDS: IPRATROPIUM-ALBUTEROL 3 ML NEB INHALATION SCH ×4 (07:17→19:57)
[2019-09-10] MEDS: levETIRAcetam 500 MG TAB PO SCH ×2 (07:41→21:09)
[2019-09-10] MEDS: FAMOTIDINE 20 MG TAB PO SCH (07:41)
[2019-09-10] MEDS: MULTIVITAMINS, THERA 1 EACH TAB PO SCH (07:41)
[2019-09-10] MEDS: APIXABAN 2.5 MG TABLET PO SCH ×2 (07:42→21:10)
[2019-09-10] MEDS: CLOPIDOGREL 75 MG TAB PO SCH (07:42)
[2019-09-10] MEDS: FUROSEMIDE 20 MG TAB PO SCH (07:42)
[2019-09-10] MEDS: MIDODRINE 5 MG TAB PO SCH ×3 (07:42→17:43)
[2019-09-10] MEDS: PANTOPRAZOLE 40 MG TABLET PO SCH (07:42)
[2019-09-10] MEDS: glipiZIDE 5 MG TAB PO SCH ×3 (07:42→17:42)
[2019-09-10] MEDS: guaiFENesin 600 MG TABLET.ER PO SCH ×2 (07:42→21:09)
[2019-09-10] MEDS: METOPROLOL SUCCINATE (ER) 50 MG TAB.ER.24H PO SCH (07:42)
[2019-09-10] MEDS: ISOSORBIDE MONONITRATE ER 60 MG TAB.ER.24H PO SCH (07:42)
[2019-09-10] MEDS: ASCORBIC ACID 500 MG TAB PO SCH (07:42)
[2019-09-10] MEDS: AZITHROMYCIN 500 MG TAB PO SCH (07:43)
[2019-09-10] MEDS: POTASSIUM CHLORIDE ER 20 MEQ TAB.ER PO SCH (07:43)
[2019-09-10] MEDS: INSULIN ASPART (NovoLOG) 100 UNIT/ML VIAL SQ SCH ×4 (07:43→21:10)
[2019-09-10 08:08] LABS: Basophils # (A) 0.1 k/uL (0-0.2); Basophils % (A) 0 %; Eosinophils % (A) 0 %; HGB 13.6 gm/dL (13.0-17.5); Lymphocytes % (A) 9 %; MCH 28.8 pg (25.0-35.0); MCHC 32.3 g/dL (31.0-37.0); MCV 89.1 fL (80.0-100.0); Mean Platelet Volume 7.1; Monocytes # (A) 0.5 k/uL (0-1.0); Monocytes % (A) 5 %; Neutrophils # (A) 9.5 k/uL (1.3-7.7); Neutrophils % (A) 85 %; Platelet Count 263 k/uL (150-450); RBC 4.71 m/uL (4.30-5.90); RDW 12.9 % (11.5-15.5); WBC 11.2 k/uL (3.8-10.6)
[2019-09-10 08:32] LABS: ALT 19 U/L (4-49); AST 23 U/L (17-59); African American GFR (CKD) >90 (>60 ml/min/1.73 sqM); Albumin 3.8 g/dL (3.5-5.0); Alkaline Phosphatase 57 U/L (38-126); Anion Gap 10 mmol/L; Blood Urea Nitrogen 16 mg/dL (9-20); Calcium 8.7 mg/dL (8.4-10.2); Carbon Dioxide 27 mmol/L (22-30); Chloride 100 mmol/L (98-107); Glucose 251 mg/dL (74-99); Non-African American GFR(CKD) >90 (>60 ml/min/1.73 sqM); Potassium 4.4 mmol/L (3.5-5.1); Sodium 137 mmol/L (137-145); Total Bilirubin 0.6 mg/dL (0.2-1.3); Total Protein 6.6 g/dL (6.3-8.2)
[2019-09-10] MEDS ORDERED: METOPROLOL SUCCINATE (ER) 50 MG TAB.ER.24H PO STA (10:25)
[2019-09-10 12:01] LABS: Glucose,Whole Blood 221 mg/dL (75-99)
--- NOTE | 2019-09-10 13:23 | P.PN ---
Subjective Progress Note Date: 09/10/19 This is a 79-year-old male patient who presented with complaints of increased shortness of breath and wheezing. Patient was recently admitted and discharged last week. Patient reports that he did feel much improved but then started to progressively get worse over the past couple days. Patient states he was very eager to go home in order to see his who is at [facility]. Patient does have past medical history of asthma, coronary artery disease, COPD, CVA, diabetes mellitus, hyperlipidemia, hypertension, myocardial infarction, osteoarthritis, seizure disorder, prostate cancer and previous heart cath with stents. Chest x-ray completed showing mild pleural diaphragmatic lying left lung base unchanged. No acute lung disease. EKG completed showing normal sinus rhythm septal infarct, age undetermined. Pulmonary services have been consulted. Patient started on Solu-Medrol and DuoNeb breathing treatments. Patient also started on azithromycin. Lactic acid elevated at 2. 9 repeat lactic acid 0.9. On examination patient still has significant expiratory wheezing. Patient denies chest pain. Patient denies nausea vomiting or diarrhea. Patient denies any urinary burning or frequency On 09/08/2019 patient is alert and oriented 3. Patient still having significant wheezing. Patient remains on azithromycin and Solu-Medrol. Patient verbalized understanding that he will likely have to stay throughout the weekend. Pulmonary services are following. Patient denies chest pain. Patient denies nausea vomiting or diarrhea. Patient denies any urinary burning or frequency. Patient does state he feels slightly more improved from yesterday. Continue Mucinex. Sputum culture ordered On 09/09/2019 patient is alert and oriented 3. Patient reports some improvement with shortness breath and wheezing. Patient still had significant wheezing to auscultation. Cardiology services have been consulted due to known patient's cardiac history. 2-D echo ordered. Patient ordered for cardiac telemetry. At this time patient denies chest pain. Patient denies nausea vomiting or diarrhea. Patient denies any urinary burning or frequency On 09/10/2019 patient was seen and examined on the medical floor he is alert and oriented 3 in no apparent distress he is still complaining of cough, shortness of breath, and wheezing. This morning patient developed atrial fibrillation with rapid ventricular response he was evaluated by cardiology and patient will be transferred to telemetry floor and will be started on Cardizem drip otherwise patient denies any symptoms there is no fever or chills no headache or dizziness no chest pain no nausea or vomiting no abdominal pain no diarrhea no burning with urination no frequency or urgency and no hematuria. Objective - Vital Signs Vital signs: Vital Signs Temp 97.9 F 09/10/19 06:15 Pulse 112 H 09/10/19 11:21 Resp 26 H 09/10/19 10:52 BP 114/77 09/10/19 10:52 Pulse Ox 96 09/10/19 10:52 Intake & Output 09/09/19 09/10/19 09/10/19 18:59 06:59 18:59 Intake Total 900 Balance 900 Intake: Oral 900 Other: Voiding Method Toilet Toilet Toilet # Voids 2 1 2 - Exam In general patient is alert and oriented 3 in no apparent distress Head normocephalic and atraumatic Neck supple no JVD no goiter Lungs diminished bilaterally with significant expiratory wheezing Heart regular rate and rhythm S1-S2, no rub or gallop Abdomen is soft nontender nondistended positive bowel sounds no h epatosplenomegaly Extremities no edema no cyanosis or clubbing Neuro no gross focal neurological deficit - Labs CBC & Chem 7: 09/10/19 07:39 09/10/19 07:39 Labs: Abnormal Lab Results - Last 24 Hours (Table) 09/09/19 09/09/19 09/10/19 Range/Units 16:50 21:24 07:00 WBC (3.8-10.6) k/uL Neutrophils # (1.3-7.7) k/uL Glucose (74-99) mg/dL POC Glucose (mg/dL) 177 H 254 H 236 H (75-99) mg/dL 09/10/19 09/10/19 09/10/19 Range/Units 07:39 07:39 11:47 WBC 11.2 H (3.8-10.6) k/uL Neutrophils # 9.5 H (1.3-7.7) k/uL Glucose 251 H (74-99) mg/dL POC Glucose (mg/dL) 221 H (75-99) mg/dL Microbiology - Last 24 Hours (Table) 09/08/19 08:40 Gram Stain - Final Sputum Sputum Culture - Final 09/06/19 21:46 Blood Culture - Preliminary Blood No Growth after 72 hours Assessment and Plan Plan: 1. Increased shortness of breath related to acute COPD exacerbation and acute purulent bronchitis. Chest x-ray completed showing mild pleural diaphragmatic scarring left lung base unchanged. No acute lung disease. Patient started Solu-Medrol azithromycin. Continue DuoNeb breathing treatments. Pulmonary services have been consulted. sputum culture ordered. Cardiology services have been consulted 2-D echo has been ordered 2. Acute purulent tracheobronchitis. Patient started on azithromycin. Pulmonary service is consulted 3. History of chronic atrial fibrillation patient maintained on eliquis 4. History of coronary disease with previous stent placement. Maintained on Plavix 5. History of COPD 6. History of prostate cancer 7. History of diabetes mellitus type 2. sliding scale insulin has been ordered. Hemoglobin A1c has been ordered 8. History of seizures. Maintained on Keppra 9. Atrial fibrillation with rapid ventricular response patient will be tra nsferred to telemetry floor cardiology are following he will be started on Cardizem drip DVT prophylaxis eliquis. GI prophylaxis Pepcid Cardiology and pulmonary service is consulted 2-D echo ordered remains on IV Solu-Medrol and azithromycin
[2019-09-10] MEDS: DILTIAZEM 125 MG in SODIUM CHLORIDE 0.9% 100 ML IV SCH (14:58)
[2019-09-10 16:34] LABS: Glucose,Whole Blood 217 mg/dL (75-99)
[2019-09-10] MEDS: LISINOPRIL 2.5 MG TAB PO SCH (17:42)
[2019-09-10 20:34] LABS: Glucose,Whole Blood 290 mg/dL (75-99)
[2019-09-10] MEDS: MONTELUKAST 10 MG TAB PO SCH (21:09)
[2019-09-10] MEDS: diphenhydrAMINE 25 MG CAP PO SCH (21:10)
[2019-09-10] MEDS: ATORVASTATIN 10 MG TAB PO SCH (21:10)
--- NOTE | 2019-09-10 23:04 | P.PN ---
Subjective Progress Note Date: 09/10/19 Principal diagnosis: Acute COPD exacerbation Purulent tracheobronchitis Chronic atrial fibrillation History of coronary artery disease stent placement Obstructive sleep apnea Prostate cancer 09/10/2019, patient seen eval examined during the rounds of epinephrine and medications reviewed care plan discussed, overall respiratory status is relatively more stable, but is still have ongoing cough congestion shortness of breath and wheezing, cardiovascular services has been following for A. fib and rapid ventricular response have been placed on Cardizem 09/09/2019, patient seen eval examined during the rounds labs reviewed medications reviewed care plan discussed with the patient at length still have ongoing wheezing cough and congestion is present, sputum cultures are pending, patient has been evaluated by cardiovascular services for diastolic heart failure, computed to be on antibiotics breathing treatment and steroids 09/08/2019, patient seen and evaluated examined during the rounds labs reviewed medications reviewed care plan discussed with the patient is still have ongoing intermittent cough congestion shortness of breath on continue current course of treatment with IV steroids antibiotics and breathing treatments O follow clinical course closely, care plan discussed with the primary service at length This is a 79-year-old with end-stage severe COPD emphysema also has a problem with obstructive sleep apnea patient was recently in the hospital improved and discharged but in the last one today having increasing shortness of breath has been wheezing cough and shortness of breath decided to come into the hospital patient was evaluated in the emergency department chest x-ray continued to show mild left basal scarring or new active infiltrate identified lab status stable white cell count normal however lactic acid was elevated 2.9 with rehydration improved 0.9, patient has been admitted into hospital for IV steroids breathing treatments Objective - Vital Signs Vital signs: Vital Signs Temp 98 F 09/10/19 20:00 Pulse 125 H 09/10/19 20:00 Resp 22 09/10/19 20:00 BP 128/75 09/10/19 20:00 Pulse Ox 93 L 09/10/19 20:00 Intake & Output 09/10/19 09/10/19 09/11/19 06:59 18:59 06:59 Intake Total 240 Balance 240 Intake: Oral 240 Other: Voiding Method Toilet Toilet # Voids 1 2 - Exam - Constitutional General appearance: average body habitus, cooperative, disheveled, mild distress - EENT Eyes: EOMI, PERRLA, dentition normal, normal appearance ENT: normal oropharynx Ears: bilateral: normal - Neck Neck: normal ROM Carotids: bilateral: upstroke normal - Respiratory Respiratory: bilateral: diminished, rhonchi, wheezing, prolonged expiration, negative: CTA, dullness, rales, prolonged inspiration - Cardiovascular Rhythm: regular Heart sounds: normal: S1, S2 - Gastrointestinal General gastrointestinal: normal bowel sounds - Integumentary Integumentary: normal turgor - Neurologic Neurologic: CNII-XII intact - Musculoskeletal Musculoskeletal: gait normal, generalized weakness, strength equal bilaterally - Psychiatric Psychiatric: A&O x's 3, appropriate affect, intact judgment & insight - Labs CBC & Chem 7: 09/10/19 07:39 09/10/19 07:39 Labs: Abnormal Lab Results - Last 24 Hours (Table) 09/10/19 09/10/19 09/10/19 Range/Units 07:00 07:39 07:39 WBC 11.2 H (3.8-10.6) k/uL Neutrophils # 9.5 H (1.3-7.7) k/uL Glucose 251 H (74-99) mg/dL POC Glucose (mg/dL) 236 H (75-99) mg/dL 09/10/19 09/10/19 09/10/19 Range/Units 11:47 16:32 20:33 WBC (3.8-10.6) k/uL Neutrophils # (1.3-7.7) k/uL Glucose (74-99) mg/dL POC Glucose (mg/dL) 221 H 217 H 290 H (75-99) mg/dL Microbiology - Last 24 Hours (Table) 09/08/19 08:40 Gram Stain - Final Sputum Sputum Culture - Final 09/06/19 21:46 Blood Culture - Preliminary Blood No Growth after 72 hours Assessment and Plan Assessment: Acute COPD exacerbation Purulent tracheobronchitis Acute on Chronic atrial fibrillation History of coronary artery disease stent placement Obstructive sleep apnea Chronic diastolic heart failure Prostate cancer Plan: IV steroids, can be changed to oral at the time of discharge Breathing treatments Continue home medications Broad-spectrum antibiotics Sputum studies if able to obtain Further recommendations pending plan of care as per clinical response of the patient Time with Patient: Greater than 30
[2019-09-11] MEDS: DILTIAZEM 125 MG in SODIUM CHLORIDE 0.9% 100 ML IV SCH ×2 (00:29→17:17)
[2019-09-11 05:53] LABS: Glucose,Whole Blood 226 mg/dL (75-99)
[2019-09-11] MEDS: glipiZIDE 5 MG TAB PO SCH ×3 (06:07→17:15)
[2019-09-11] MEDS: MIDODRINE 5 MG TAB PO SCH ×2 (06:07→13:46)
[2019-09-11] MEDS: methylPREDNISolone SOD SUCCI 125 MG/2 ML VIAL IV SCH ×4 (06:07→23:26)
[2019-09-11] MEDS: INSULIN ASPART (NovoLOG) 100 UNIT/ML VIAL SQ SCH ×4 (06:08→20:29)
[2019-09-11 06:40] LABS: Basophils # (A) 0.1 k/uL (0-0.2); Basophils % (A) 1 %; Eosinophils % (A) 0 %; HCT 44.9 % (39.0-53.0); HGB 14.6 gm/dL (13.0-17.5); Lymphocytes # (A) 1.1 k/uL (1.0-4.8); Lymphocytes % (A) 10 %; MCH 28.8 pg (25.0-35.0); MCHC 32.6 g/dL (31.0-37.0); MCV 88.3 fL (80.0-100.0); Monocytes # (A) 0.5 k/uL (0-1.0); Monocytes % (A) 4 %; Neutrophils # (A) 9.8 k/uL (1.3-7.7); Neutrophils % (A) 84 %; Platelet Count 264 k/uL (150-450); RBC 5.08 m/uL (4.30-5.90); RDW 12.8 % (11.5-15.5); WBC 11.6 k/uL (3.8-10.6)
[2019-09-11 07:05] LABS: ALT 18 U/L (4-49); AST 25 U/L (17-59); African American GFR (CKD) >90 (>60 ml/min/1.73 sqM); Albumin 3.7 g/dL (3.5-5.0); Alkaline Phosphatase 56 U/L (38-126); Anion Gap 7 mmol/L; Blood Urea Nitrogen 17 mg/dL (9-20); Calcium 8.6 mg/dL (8.4-10.2); Carbon Dioxide 27 mmol/L (22-30); Chloride 102 mmol/L (98-107); Glucose 235 mg/dL (74-99); Non-African American GFR(CKD) >90 (>60 ml/min/1.73 sqM); Sodium 136 mmol/L (137-145); Total Bilirubin 0.6 mg/dL (0.2-1.3); Total Protein 6.5 g/dL (6.3-8.2)
[2019-09-11] MEDS: SYMBICORT 160-4.5 MCG INHALER INHALATION SCH ×2 (07:34→19:39)
[2019-09-11] MEDS: IPRATROPIUM-ALBUTEROL 3 ML NEB INHALATION SCH ×4 (07:34→19:39)
[2019-09-11] MEDS ORDERED: METOPROLOL SUCCINATE (ER) 100 MG TAB.ER.24H PO SCH (09:00)
[2019-09-11] MEDS: APIXABAN 2.5 MG TABLET PO SCH ×2 (10:24→20:29)
[2019-09-11] MEDS: AZITHROMYCIN 500 MG TAB PO SCH (10:25)
[2019-09-11] MEDS: CLOPIDOGREL 75 MG TAB PO SCH (10:25)
[2019-09-11] MEDS: ASCORBIC ACID 500 MG TAB PO SCH (10:25)
[2019-09-11] MEDS: FUROSEMIDE 20 MG TAB PO SCH (10:25)
[2019-09-11] MEDS: FAMOTIDINE 20 MG TAB PO SCH (10:25)
[2019-09-11] MEDS: levETIRAcetam 500 MG TAB PO SCH ×2 (10:26→20:29)
[2019-09-11] MEDS: ISOSORBIDE MONONITRATE ER 60 MG TAB.ER.24H PO SCH (10:26)
[2019-09-11] MEDS: guaiFENesin 600 MG TABLET.ER PO SCH ×2 (10:26→20:29)
[2019-09-11] MEDS: POTASSIUM CHLORIDE ER 20 MEQ TAB.ER PO SCH (10:27)
[2019-09-11] MEDS: PANTOPRAZOLE 40 MG TABLET PO SCH (10:27)
[2019-09-11] MEDS: MULTIVITAMINS, THERA 1 EACH TAB PO SCH (10:27)
[2019-09-11 12:58] LABS: Glucose,Whole Blood 354 mg/dL (75-99)
[2019-09-11] MEDS ORDERED: METOPROLOL SUCCINATE (ER) 50 MG TAB.ER.24H PO STA (13:26)
--- NOTE | 2019-09-11 13:28 | P.PN ---
Subjective This is Elizabeth Palomo PA-C dictating a progress note on this patient The patient was interviewed and examined by me as well as by Dr. Lin Case discussed with Dr. Lin and he agrees with the plan of care HPI/interval history Patient is an 79-year-old male with a past medical history of CAD status post angioplasty, hypertension, dyslipidemia, paroxysmal atrial fibrillation, COPD who presented with shortness of breath and cough and was being treated for COPD exacerbation. Last night he went into atrial fibrillation with RVR and was started on a Cardizem drip and his metoprolol was increased to 100 mg daily. He remains in atrial fibrillation with rates in the 80s on a Cardizem drip at 10 mg/hr and metoprolol succinate 100 mg daily. Patient seen and examined resting in bed. He is still coughing. His breathing has improved. Denies any dizziness, palpitations or chest pain EXAMINATION Patient is afebrile, pulse in the 80s, respirations 18, blood pressure 123/58, oxygen saturation 90% on 2 L nasal cannula Patient seen and examined resting in bed, appears comfortable, in no acute distress Lungs are rhonchorous with expiratory wheezing bilaterally Heart is irregularly irregular No lower extremity edema REVIEW OF LABS, ECG WBC 11.6, hemoglobin 14.6, platelets 264, potassium 4.0, BUN 17, creatinine 0.58 IMPRESSION / ASSESSMENT: Acute COPD exacerbation and tracheobronchitis Paroxysmal atrial fibrillation, currently in atrial fibrillation rate controlled, anticoagulated with eliquis Chronic diastolic heart failure, stable from a heart failure symptoms standpoint History of CAD status post stenting Hypertension Dyslipidemia PLAN: Check TSH Reduce Cardizem drip to 5 mg/hr and increase metoprolol to 150 mg daily Stop Midodrin if his rates remain controlled we will gradually wean him off Cardizem and transition to rate control with PO metoprolol Anticoagulation with eliquis Objective - Vital Signs Vital signs: Vital Signs Temp 97.7 F 09/11/19 08:45 Pulse 80 09/11/19 11:27 Resp 18 09/11/19 08:45 BP 123/58 09/11/19 08:45 Pulse Ox 90 L 09/11/19 08:45 Intake & Output 09/10/19 09/11/19 09/11/19 18:59 06:59 18:59 Intake Total 240 335.167 240 Balance 240 335.167 240 Weight 88.9 kg Intake: Intake, IV Titration 95.167 Amount Diltiazem 125 mg In 95.167 Sodium Chloride 0.9% 100 ml @ 10 MG/HR 10 mls/hr IV .[id number] [facility] Rx#: [id number] Oral 240 240 240 Other: Voiding Method Toilet # Voids 2 1 1 - Labs CBC & Chem 7: 09/11/19 05:50 09/11/19 05:50 Labs: Abnormal Lab Results - Last 24 Hours (Table) 09/10/19 09/10/19 09/11/19 Range/Units 16:32 20:33 05:50 WBC 11.6 H (3.8-10.6) k/uL Neutrophils # 9.8 H (1.3-7.7) k/uL Sodium (137-145) mmol/L Creatinine (0.66-1.25) mg/dL Glucose (74-99) mg/dL POC Glucose (mg/dL) 217 H 290 H (75-99) mg/dL 09/11/19 09/11/19 09/11/19 Range/Units 05:50 05:52 12:57 WBC (3.8-10.6) k/uL Neutrophils # (1.3-7.7) k/uL Sodium 136 L (137-145) mmol/L Creatinine 0.58 L (0.66-1.25) mg/dL Glucose 235 H (74-99) mg/dL POC Glucose (mg/dL) 226 H 354 H (75-99) mg/dL Microbiology - Last 24 Hours (Table) 09/06/19 21:46 Blood Culture - Preliminary Blood No Growth after 96 hours 09/08/19 08:40 Gram Stain - Final Sputum Sputum Culture - Final
--- NOTE | 2019-09-11 14:40 | P.PN ---
Subjective Progress Note Date: 09/11/19 This is a 79-year-old male patient who presented with complaints of increased shortness of breath and wheezing. Patient was recently admitted and discharged last week. Patient reports that he did feel much improved but then started to progressively get worse over the past couple days. Patient states he was very eager to go home in order to see his who is at [facility]. Patient does have past medical history of asthma, coronary artery disease, COPD, CVA, diabetes mellitus, hyperlipidemia, hypertension, myocardial infarction, osteoarthritis, seizure disorder, prostate cancer and previous heart cath with stents. Chest x-ray completed showing mild pleural diaphragmatic lying left lung base unchanged. No acute lung disease. EKG completed showing normal sinus rhythm septal infarct, age undetermined. Pulmonary services have been consulted. Patient started on Solu-Medrol and DuoNeb breathing treatments. Patient also started on azithromycin. Lactic acid elevated at 2. 9 repeat lactic acid 0.9. On examination patient still has significant expiratory wheezing. Patient denies chest pain. Patient denies nausea vomiting or diarrhea. Patient denies any urinary burning or frequency On 09/08/2019 patient is alert and oriented 3. Patient still having significant wheezing. Patient remains on azithromycin and Solu-Medrol. Patient verbalized understanding that he will likely have to stay throughout the weekend. Pulmonary services are following. Patient denies chest pain. Patient denies nausea vomiting or diarrhea. Patient denies any urinary burning or frequency. Patient does state he feels slightly more improved from yesterday. Continue Mucinex. Sputum culture ordered On 09/09/2019 patient is alert and oriented 3. Patient reports some improvement with shortness breath and wheezing. Patient still had significant wheezing to auscultation. Cardiology services have been consulted due to known patient's cardiac history. 2-D echo ordered. Patient ordered for cardiac telemetry. At this time patient denies chest pain. Patient denies nausea vomiting or diarrhea. Patient denies any urinary burning or frequency On 09/10/2019 patient was seen and examined on the medical floor he is alert and oriented 3 in no apparent distress he is still complaining of cough, shortness of breath, and wheezing. This morning patient developed atrial fibrillation with rapid ventricular response he was evaluated by cardiology and patient will be transferred to telemetry floor and will be started on Cardizem drip otherwise patient denies any symptoms there is no fever or chills no headache or dizziness no chest pain no nausea or vomiting no abdominal pain no diarrhea no burning with urination no frequency or urgency and no hematuria. On 09/11/2019 patient was seen and examined on the medical floor he states he is feeling better he is still having some cough some shortness of breath with activity and wheezing otherwise he denies any complaints there is no fever or chills no headache or dizziness no chest pain no nausea or vomiting no abdominal pain no diarrhea no burning was urination no frequency or urgency and no hematuria Objective - Vital Signs Vital signs: Vital Signs Temp 97.7 F 09/11/19 08:45 Pulse 80 09/11/19 11:27 Resp 18 09/11/19 08:45 BP 123/58 09/11/19 08:45 Pulse Ox 90 L 09/11/19 08:45 Intake & Output 09/10/19 09/11/19 09/11/19 18:59 06:59 18:59 Intake Total 240 335.167 240 Balance 240 335.167 240 Weight 88.9 kg Intake: Intake, IV Titration 95.167 Amount Diltiazem 125 mg In 95.167 Sodium Chloride 0.9% 100 ml @ 10 MG/HR 10 mls/hr IV .[id number] [facility] Rx#: [id number] Oral 240 240 240 Other: Voiding Method Toilet # Voids 2 1 1 - Exam In general patient is alert and oriented 3 in no apparent distress Head normocephalic and atraumatic Neck supple no JVD no goiter Lungs diminished bilaterally with significant expiratory wheezing Heart regular rate and rhythm S1-S2, no rub or gallop Abdomen is soft nontender nondistended positive bowel sounds no hepatosplenomegaly Extremities no edema no cyanosis or clubbing Neuro no gross focal neurological deficit - Labs CBC & Chem 7: 09/11/19 05:50 09/11/19 05:50 Labs: Abnormal Lab Results - Last 24 Hours (Table) 09/10/19 09/10/19 09/11/19 Range/Units 16:32 20:33 05:50 WBC 11.6 H (3.8-10.6) k/uL Neutrophils # 9.8 H (1.3-7.7) k/uL Sodium (137-145) mmol/L Creatinine (0.66-1.25) mg/dL Glucose (74-99) mg/dL POC Glucose (mg/dL) 217 H 290 H (75-99) mg/dL 09/11/19 09/11/19 09/11/19 Range/Units 05:50 05:52 12:57 WBC (3.8-10.6) k/uL Neutrophils # (1.3-7.7) k/uL Sodium 136 L (137-145) mmol/L Creatinine 0.58 L (0.66-1.25) mg/dL Glucose 235 H (74-99) mg/dL POC Glucose (mg/dL) 226 H 354 H (75-99) mg/dL Microbiology - Last 24 Hours (Table) 09/06/19 21:46 Blood Culture - Preliminary Blood No Growth after 96 hours 09/08/19 08:40 Gram Stain - Final Sputum Sputum Culture - Final Assessment and Plan Plan: 1. Increased shortness of breath related to acute COPD exacerbation and acute purulent bronchitis. Chest x-ray completed showing mild pleural diaphragmatic scarring left lung base unchanged. No acute lung disease. Patient started Solu-Medrol azithromycin. Continue DuoNeb breathing treatments. Pulmonary services have been consulted. sputum culture ordered. Cardiology services have been consulted 2-D echo has been ordered 2. Acute purulent tracheobronchitis. Patient started on azithromycin. Pulmonary service is consulted 3. History of chronic atrial fibrillation patient maintained on eliquis 4. History of coronary disease with previous stent placement. Maintained on Plavix 5. History of COPD 6. History of prostate cancer 7. History of diabetes mellitus type 2. sliding scale insulin has been ordered. Hemoglobin A1c has been ordered 8. History of seizures. Maintained on Keppra 9. Atrial fibrillation with rapid ventricular response patient will be transferred to telemetry floor cardiology are following he will be started on Cardizem drip DVT prophylaxis eliquis. GI prophylaxis Pepcid Cardiology and pulmonary service is consulted 2-D echo ordered remains on IV Solu-Medrol and azithromycin
[2019-09-11 15:27] LABS: T4, Free (Free Thyroxine) 1.5 ng/dL (0.78-2.19)
[2019-09-11 16:48] LABS: Glucose,Whole Blood 187 mg/dL (75-99)
[2019-09-11] MEDS: LISINOPRIL 2.5 MG TAB PO SCH (17:15)
[2019-09-11 20:25] LABS: Glucose,Whole Blood 245 mg/dL (75-99)
[2019-09-11] MEDS: MONTELUKAST 10 MG TAB PO SCH (20:29)
[2019-09-11] MEDS: diphenhydrAMINE 25 MG CAP PO SCH (20:29)
[2019-09-11] MEDS: ATORVASTATIN 10 MG TAB PO SCH (20:29)
[2019-09-12] MEDS: DILTIAZEM 125 MG in SODIUM CHLORIDE 0.9% 100 ML IV SCH ×2 (01:52→16:02)
[2019-09-12] MEDS: IPRATROPIUM-ALBUTEROL 3 ML NEB INHALATION PRN (02:48)
[2019-09-12 06:00] LABS: Glucose,Whole Blood 233 mg/dL (75-99)
[2019-09-12] MEDS: INSULIN ASPART (NovoLOG) 100 UNIT/ML VIAL SQ SCH ×4 (06:09→21:15)
[2019-09-12] MEDS: methylPREDNISolone SOD SUCCI 125 MG/2 ML VIAL IV SCH ×4 (06:09→23:14)
[2019-09-12] MEDS: glipiZIDE 5 MG TAB PO SCH ×3 (06:09→17:24)
[2019-09-12 06:35] LABS: Basophils % (A) 0 %; Eosinophils % (A) 0 %; HCT 45.5 % (39.0-53.0); HGB 14.8 gm/dL (13.0-17.5); Lymphocytes # (A) 1.1 k/uL (1.0-4.8); Lymphocytes % (A) 9 %; MCH 28.6 pg (25.0-35.0); MCHC 32.6 g/dL (31.0-37.0); MCV 87.9 fL (80.0-100.0); Mean Platelet Volume 6.9; Monocytes # (A) 0.5 k/uL (0-1.0); Monocytes % (A) 4 %; Neutrophils # (A) 10.6 k/uL (1.3-7.7); Neutrophils % (A) 86 %; Platelet Count 260 k/uL (150-450); RBC 5.18 m/uL (4.30-5.90); RDW 12.6 % (11.5-15.5); WBC 12.3 k/uL (3.8-10.6)
[2019-09-12 06:51] LABS: ALT 18 U/L (4-49); AST 19 U/L (17-59); African American GFR (CKD) >90 (>60 ml/min/1.73 sqM); Albumin 3.5 g/dL (3.5-5.0); Alkaline Phosphatase 49 U/L (38-126); Anion Gap 8 mmol/L; Blood Urea Nitrogen 17 mg/dL (9-20); Calcium 8.3 mg/dL (8.4-10.2); Carbon Dioxide 27 mmol/L (22-30); Chloride 100 mmol/L (98-107); Glucose 223 mg/dL (74-99); Non-African American GFR(CKD) >90 (>60 ml/min/1.73 sqM); Potassium 3.8 mmol/L (3.5-5.1); Sodium 135 mmol/L (137-145); Total Bilirubin 0.7 mg/dL (0.2-1.3); Total Protein 6.1 g/dL (6.3-8.2)
[2019-09-12] MEDS: IPRATROPIUM-ALBUTEROL 3 ML NEB INHALATION SCH ×4 (08:38→20:14)
[2019-09-12] MEDS: SYMBICORT 160-4.5 MCG INHALER INHALATION SCH ×2 (08:38→20:14)
[2019-09-12] MEDS ORDERED: METOPROLOL SUCCINATE (ER) 100 MG TAB.ER.24H PO SCH (09:00)
[2019-09-12] MEDS: CLOPIDOGREL 75 MG TAB PO SCH (09:15)
[2019-09-12] MEDS: PANTOPRAZOLE 40 MG TABLET PO SCH (09:15)
[2019-09-12] MEDS: APIXABAN 2.5 MG TABLET PO SCH ×2 (09:15→21:15)
[2019-09-12] MEDS: levETIRAcetam 500 MG TAB PO SCH ×2 (09:15→21:15)
[2019-09-12] MEDS: FUROSEMIDE 20 MG TAB PO SCH (09:18)
[2019-09-12] MEDS: guaiFENesin 600 MG TABLET.ER PO SCH ×2 (09:18→21:15)
[2019-09-12] MEDS: AZITHROMYCIN 500 MG TAB PO SCH (09:18)
[2019-09-12] MEDS: MULTIVITAMINS, THERA 1 EACH TAB PO SCH (09:19)
[2019-09-12] MEDS: POTASSIUM CHLORIDE ER 20 MEQ TAB.ER PO SCH (09:19)
[2019-09-12] MEDS: FAMOTIDINE 20 MG TAB PO SCH (09:19)
[2019-09-12] MEDS: ASCORBIC ACID 500 MG TAB PO SCH (09:19)
--- NOTE | 2019-09-12 10:54 | P.PN ---
Subjective Progress Note Date: 09/12/19 This is a 79-year-old male patient who presented with complaints of increased shortness of breath and wheezing. Patient was recently admitted and discharged last week. Patient reports that he did feel much improved but then started to progressively get worse over the past couple days. Patient states he was very eager to go home in order to see his who is at [facility]. Patient does have past medical history of asthma, coronary artery disease, COPD, CVA, diabetes mellitus, hyperlipidemia, hypertension, myocardial infarction, osteoarthritis, seizure disorder, prostate cancer and previous heart cath with stents. Chest x-ray completed showing mild pleural diaphragmatic lying left lung base unchanged. No acute lung disease. EKG completed showing normal sinus rhythm septal infarct, age undetermined. Pulmonary services have been consulted. Patient started on Solu-Medrol and DuoNeb breathing treatments. Patient also started on azithromycin. Lactic acid elevated at 2. 9 repeat lactic acid 0.9. On examination patient still has significant expiratory wheezing. Patient denies chest pain. Patient denies nausea vomiting or diarrhea. Patient denies any urinary burning or frequency On 09/08/2019 patient is alert and oriented 3. Patient still having significant wheezing. Patient remains on azithromycin and Solu-Medrol. Patient verbalized understanding that he will likely have to stay throughout the weekend. Pulmonary services are following. Patient denies chest pain. Patient denies nausea vomiting or diarrhea. Patient denies any urinary burning or frequency. Patient does state he feels slightly more improved from yesterday. Continue Mucinex. Sputum culture ordered On 09/09/2019 patient is alert and oriented 3. Patient reports some improvement with shortness breath and wheezing. Patient still had significant wheezing to auscultation. Cardiology services have been consulted due to known patient's cardiac history. 2-D echo ordered. Patient ordered for cardiac telemetry. At this time patient denies chest pain. Patient denies nausea vomiting or diarrhea. Patient denies any urinary burning or frequency On 09/10/2019 patient was seen and examined on the medical floor he is alert and oriented 3 in no apparent distress he is still complaining of cough, shortness of breath, and wheezing. This morning patient developed atrial fibrillation with rapid ventricular response he was evaluated by cardiology and patient will be transferred to telemetry floor and will be started on Cardizem drip otherwise patient denies any symptoms there is no fever or chills no headache or dizziness no chest pain no nausea or vomiting no abdominal pain no diarrhea no burning with urination no frequency or urgency and no hematuria. On 09/11/2019 patient was seen and examined on the medical floor he states he is feeling better he is still having some cough some shortness of breath with activity and wheezing otherwise he denies any complaints there is no fever or chills no headache or dizziness no chest pain no nausea or vomiting no abdominal pain no diarrhea no burning was urination no frequency or urgency and no hematuria On 09/12/2019 patient is alert and oriented 3. Patient states he is feeling improved. Patient still has productive cough and some shortness of breath with activity. Patient remains on Cardizem for control at this time. Cardiology services are following medications to be adjusted. Patient remains on eliquis for anticoagulation. Patient remains on IV Solu-Medrol and azithromycin Objective - Vital Signs Vital signs: Vital Signs Temp 97.7 F 09/12/19 08:00 Pulse 98 09/12/19 08:47 Resp 20 09/12/19 08:00 BP 116/65 09/12/19 08:00 Pulse Ox 94 L 09/12/19 08:00 Intake & Output 09/11/19 09/12/19 09/12/19 18:59 06:59 18:59 Intake Total 485 240 240 Balance 485 240 240 Weight 89.2 kg Intake: IV 40 Diltiazem 125 mg In 40 Sodium Chloride 0.9% 100 ml @ 5 MG/HR 5 mls/hr IV .Q24H [facility] Rx#:[id number] Intake, IV Titration 125 Amount Diltiazem 125 mg In 125 Sodium Chloride 0.9% 100 ml @ 5 MG/HR 5 mls/hr IV .Q24H [facility] Rx#:[id number] Oral 360 240 200 Other: Voiding Method Toilet Toilet # Voids 1 1 - Exam Head normocephalic Neck supple Lungs diminished bilaterally with significant expiratory wheezing Heart regular rate and rhythm S1-S2, no rub or gallop Abdomen is soft nontender nondistended positive bowel sounds no hepatosplenomegaly Extremities no edema Neuro alert and orientated to 3 - Labs CBC & Chem 7: 09/12/19 05:18 09/12/19 05:18 Labs: Abnormal Lab Results - Last 24 Hours (Table) 09/11/19 09/11/19 09/11/19 Range/Units 05:50 12:57 16:46 WBC (3.8-10.6) k/uL Neutrophils # (1.3-7.7) k/uL Sodium (137-145) mmol/L Creatinine (0.66-1.25) mg/dL Glucose (74-99) mg/dL POC Glucose (mg/dL) 354 H 187 H (75-99) mg/dL Calcium (8.4-10.2) mg/dL Total Protein (6.3-8.2) g/dL TSH 0.119 L (0.465-4.680) mIU/L 09/11/19 09/12/19 09/12/19 Range/Units 20:24 05:18 05:18 WBC 12.3 H (3.8-10.6) k/uL Neutrophils # 10.6 H (1.3-7.7) k/uL Sodium 135 L (137-145) mmol/L Creatinine 0.62 L (0.66-1.25) mg/dL Glucose 223 H (74-99) mg/dL POC Glucose (mg/dL) 245 H (75-99) mg/dL Calcium 8.3 L (8.4-10.2) mg/dL Total Protein 6.1 L (6.3-8.2) g/dL TSH (0.465-4.680) mIU/L 09/12/19 Range/Units 05:58 WBC (3.8-10.6) k/uL Neutrophils # (1.3-7.7) k/uL Sodium (137-145) mmol/L Creatinine (0.66-1.25) mg/dL Glucose (74-99) mg/dL POC Glucose (mg/dL) 233 H (75-99) mg/dL Calcium (8.4-10.2) mg/dL Total Protein (6.3-8.2) g/dL TSH (0.465-4.680) mIU/L Microbiology - Last 24 Hours (Table) 09/06/19 21:46 Blood Culture - Preliminary Blood No Growth after 120 hours Assessment and Plan Assessment: 1. Increased shortness of breath related to acute COPD exacerbation and acute purulent bronchitis. Chest x-ray completed showing mild pleural diaphragmatic scarring left lung base unchanged. No acute lung disease. Patient started Solu-Medrol azithromycin. Continue DuoNeb breathing treatments. Pulmonary services have been consulted. sputum culture ordered. Cardiology services have been consulted 2-D echo has been ordered 2. Acute purulent tracheobronchitis. Patient started on azithromycin. Pulmonary service is consulted 3. History of chronic atrial fibrillation patient maintained on eliquis 4. History of coronary disease with previous stent placement. Maintained on Plavix 5. History of COPD 6. History of prostate cancer 7. History of diabetes mellitus type 2. sliding scale insulin has been ordered. Hemoglobin A1c has been ordered 8. History of seizures. Maintained on Keppra 9. A. fib with rapid ventricular response. Patient currently maintained on Cardizem drip. Cardiology services are consulted medications to be adjusted. Patient maintained on eliquis for anticoagulation DVT prophylaxis eliquis. GI prophylaxis Pepcid Cardiology and pulmonary service is consulted remains on IV Solu-Medrol and azithromycin I performed an examination of the patient and discussed their management with the Nurse Practitioner. I have reviewed the Nurse Practitioner's notes and agree with the documented findings and plan of care
[2019-09-12 11:53] LABS: Glucose,Whole Blood 263 mg/dL (75-99)
[2019-09-12] MEDS ORDERED: METOPROLOL SUCCINATE (ER) 50 MG TAB.ER.24H PO STA (12:26)
[2019-09-12] MEDS ORDERED: ISOSORBIDE MONONITRATE ER 60 MG TAB.ER.24H PO SCH (13:00)
--- NOTE | 2019-09-12 13:03 | P.PN ---
Subjective This is Elizabeth Palomo PA-C dictating a progress note on this patient The patient was interviewed and examined by me as well as by Dr. Lin Case discussed with Dr. Lin and he agrees with the plan of care HPI/interval history Patient is an 79-year-old male with a past medical history of CAD status post angioplasty, hypertension, dyslipidemia, paroxysmal atrial fibrillation, COPD who presented with shortness of breath and cough and was being treated for COPD exacerbation. He went into atrial fibrillation with RVR and was started on IV Cardizem. Yesterday we decreased his Cardizem and increased his metoprolol to 150 mg daily. He remains in atrial fibrillation with rates in the 100 to 120s. Patient seen and examined resting in bed. Complains of shortness of breath with walking, still coughing. Denies any chest pain or dizziness. EXAMINATION Patient is afebrile, pulse in the 100, respirations 24, blood pressure 123/67, oxygen saturation 94% on 3 L nasal cannula Patient seen and examined resting in bed, appears comfortable, in no acute distress Lungs are rhonchorous with expiratory wheezing bilaterally Heart is irregularly irregular No lower extremity edema REVIEW OF LABS, ECG WBC 12.3, hemoglobin 14.8, platelets 260, potassium 3.8, BUN 17, creatinine 0.62 TSH is suppressed Echocardiogram showed EF 55-60%, IMPRESSION / ASSESSMENT: Acute COPD exacerbation and tracheobronchitis Paroxysmal atrial fibrillation, currently in atrial fibrillation with rates in the 100s, anticoagulated with eliquis Chronic diastolic heart failure, stable from a heart failure symptom standpoint Reserved LV systolic function by recent echo History of CAD status post stenting Hypertension, controlled Dyslipidemia Abnormal TSH PLAN: Increase metoprolol to 200 mg daily for rate control Continue Cardizem, we will try to wean him tomorrow depending on his heart rate Reduce imdur to 60 mg daily evaluation and management of abnormal TSH her primary care team Anticoagulation with eliquis Objective - Vital Signs Vital signs: Vital Signs Temp 97.6 F 09/12/19 12:00 Pulse 102 H 09/12/19 12:39 Resp 24 09/12/19 12:00 BP 123/67 09/12/19 12:00 Pulse Ox 94 L 09/12/19 12:00 Intake & Output 09/11/19 09/12/19 09/12/19 18:59 06:59 18:59 Intake Total 485 240 240 Balance 485 240 240 Weight 89.2 kg Intake: IV 40 Diltiazem 125 mg In 40 Sodium Chloride 0.9% 100 ml @ 5 MG/HR 5 mls/hr IV .Q24H [facility] Rx#:[id number] Intake, IV Titration 125 Amount Diltiazem 125 mg In 125 Sodium Chloride 0.9% 100 ml @ 5 MG/HR 5 mls/hr IV .Q24H [facility] Rx#:[id number] Oral 360 240 200 Other: Voiding Method Toilet Toilet # Voids 1 1 - Labs CBC & Chem 7: 09/12/19 05:18 09/12/19 05:18 Labs: Abnormal Lab Results - Last 24 Hours (Table) 09/11/19 09/11/19 09/11/19 Range/Units 05:50 16:46 20:24 WBC (3.8-10.6) k/uL Neutrophils # (1.3-7.7) k/uL Sodium (137-145) mmol/L Creatinine (0.66-1.25) mg/dL Glucose (74-99) mg/dL POC Glucose (mg/dL) 187 H 245 H (75-99) mg/dL Calcium (8.4-10.2) mg/dL Total Protein (6.3-8.2) g/dL TSH 0.119 L (0.465-4.680) mIU/L 09/12/19 09/12/19 09/12/19 Range/Units 05:18 05:18 05:58 WBC 12.3 H (3.8-10.6) k/uL Neutrophils # 10.6 H (1.3-7.7) k/uL Sodium 135 L (137-145) mmol/L Creatinine 0.62 L (0.66-1.25) mg/dL Glucose 223 H (74-99) mg/dL POC Glucose (mg/dL) 233 H (75-99) mg/dL Calcium 8.3 L (8.4-10.2) mg/dL Total Protein 6.1 L (6.3-8.2) g/dL TSH (0.465-4.680) mIU/L 09/12/19 Range/Units 11:50 WBC (3.8-10.6) k/uL Neutrophils # (1.3-7.7) k/uL Sodium (137-145) mmol/L Creatinine (0.66-1.25) mg/dL Glucose (74-99) mg/dL POC Glucose (mg/dL) 263 H (75-99) mg/dL Calcium (8.4-10.2) mg/dL Total Protein (6.3-8.2) g/dL TSH (0.465-4.680) mIU/L Microbiology - Last 24 Hours (Table) 09/06/19 21:46 Blood Culture - Preliminary Blood No Growth after 120 hours
--- NOTE | 2019-09-12 15:16 | P.PN ---
Subjective Progress Note Date: 09/12/19 Principal diagnosis: Acute COPD exacerbation Purulent tracheobronchitis Chronic atrial fibrillation History of coronary artery disease stent placement Obstructive sleep apnea Prostate cancer 09/12/2019, patient seen eval examined during the rounds labs reviewed medications reviewed care plan discussed, patient is still congested still short of breath, still have audible wheezing are present, we'll repeat the chest x-ray 09/10/2019, patient seen eval examined during the rounds of epinephrine and medications reviewed care plan discussed, overall respiratory status is re latively more stable, but is still have ongoing cough congestion shortness of breath and wheezing, cardiovascular services has been following for A. fib and rapid ventricular response have been placed on Cardizem 09/09/2019, patient seen eval examined during the rounds labs reviewed medications reviewed care plan discussed with the patient at length still have ongoing wheezing cough and congestion is present, sputum cultures are pending, patient has been evaluated by cardiovascular services for diastolic heart failure, computed to be on antibiotics breathing treatment and steroids 09/08/2019, patient seen and evaluated examined during the rounds labs reviewed medications reviewed care plan discussed with the patient is still have ongoing intermittent cough congestion shortness of breath on continue current course of treatment with IV steroids antibiotics and breathing treatments O follow clinical course closely, care plan discussed with the primary service at length This is a 79-year-old with end-stage severe COPD emphysema also has a problem with obstructive sleep apnea patient was recently in the hospital improved and discharged but in the last one today having increasing shortness of breath has been wheezing cough and shortness of breath decided to come into the hospital benson dilcia was evaluated in the emergency department chest x-ray continued to show mild left basal scarring or new active infiltrate identified lab status stable white cell count normal however lactic acid was elevated 2.9 with rehydration improved 0.9, patient has been admitted into hospital for IV steroids breathing treatments Objective - Vital Signs Vital signs: Vital Signs Temp 97.6 F 09/12/19 12:00 Pulse 102 H 09/12/19 12:39 Resp 24 09/12/19 12:00 BP 123/67 09/12/19 12:00 Pulse Ox 94 L 09/12/19 12:00 Intake & Output 09/11/19 09/12/19 09/12/19 18:59 06:59 18:59 Intake Total 485 240 240 Balance 485 240 240 Weight 89.2 kg Intake: IV 40 Diltiazem 125 mg In 40 Sodium Chloride 0.9% 100 ml @ 5 MG/HR 5 mls/hr IV .Q24H [facility] Rx#:[id number] Intake, IV Titration 125 Amount Diltiazem 125 mg In 125 Sodium Chloride 0.9% 100 ml @ 5 MG/HR 5 mls/hr IV .Q24H [facility] Rx#:[id number] Oral 360 240 200 Other: Voiding Method Toilet Toilet # Voids 1 1 - Exam - Constitutional General appearance: average body habitus, cooperative, disheveled, mild distress - EENT Eyes: EOMI, PERRLA, dentition normal, normal appearance ENT: normal oropharynx Ears: bilateral: normal - Neck Neck: normal ROM Carotids: bilateral: upstroke normal - Respiratory Respiratory: bilateral: diminished, rhonchi, wheezing, prolonged expiration, negative: CTA, dullness, rales, prolonged inspiration - Cardiovascular Rhythm: regular Heart sounds: normal: S1, S2 - Gastrointestinal General gastrointestinal: normal bowel sounds - Integumentary Integumentary: normal turgor - Neurologic Neurologic: CNII-XII intact - Musculoskeletal Musculoskeletal: gait normal, generalized weakness, strength equal bilaterally - Psychiatric Psychiatric: A&O x's 3, appropriate affect, intact judgment & insight - Labs CBC & Chem 7: 09/12/19 05:18 09/12/19 05:18 Labs: Abnormal Lab Results - Last 24 Hours (Table) 09/11/19 09/11/19 09/12/19 Range/Units 16:46 20:24 05:18 WBC 12.3 H (3.8-10.6) k/uL Neutrophils # 10.6 H (1.3-7.7) k/uL Sodium (137-145) mmol/L Creatinine (0.66-1.25) mg/dL Glucose (74-99) mg/dL POC Glucose (mg/dL) 187 H 245 H (75-99) mg/dL Calcium (8.4-10.2) mg/dL Total Protein (6.3-8.2) g/dL 09/12/19 09/12/19 09/12/19 Range/Units 05:18 05:58 11:50 WBC (3.8-10.6) k/uL Neutrophils # (1.3-7.7) k/uL Sodium 135 L (137-145) mmol/L Creatinine 0.62 L (0.66-1.25) mg/dL Glucose 223 H (74-99) mg/dL POC Glucose (mg/dL) 233 H 263 H (75-99) mg/dL Calcium 8.3 L (8.4-10.2) mg/dL Total Protein 6.1 L (6.3-8.2) g/dL Microbiology - Last 24 Hours (Table) 09/06/19 21:46 Blood Culture - Preliminary Blood No Growth after 120 hours Assessment and Plan Assessment: Acute COPD exacerbation Purulent tracheobronchitis Acute on Chronic atrial fibrillation History of coronary artery disease stent placement Obstructive sleep apnea Chronic diastolic heart failure Prostate cancer Plan: IV steroids, can be changed to oral at the time of discharge Breathing treatments Continue home medications Broad-spectrum antibiotics Sputum studies if able to obtain Further recommendations pending plan of care as per clinical response of the patient Time with Patient: Greater than 30
[2019-09-12 17:15] LABS: Glucose,Whole Blood 225 mg/dL (75-99)
[2019-09-12] MEDS: LISINOPRIL 2.5 MG TAB PO SCH (17:24)
[2019-09-12 20:27] LABS: Glucose,Whole Blood 164 mg/dL (75-99)
[2019-09-12] MEDS: MONTELUKAST 10 MG TAB PO SCH (21:15)
[2019-09-12] MEDS: diphenhydrAMINE 25 MG CAP PO SCH (21:15)
[2019-09-12] MEDS: ATORVASTATIN 10 MG TAB PO SCH (21:15)
[2019-09-13] MEDS: DILTIAZEM 125 MG in SODIUM CHLORIDE 0.9% 100 ML IV SCH ×2 (03:36→16:06)
[2019-09-13] MEDS: ISOSORBIDE MONONITRATE ER 60 MG TAB.ER.24H PO SCH ×2 (03:54→12:15)
[2019-09-13] MEDS: methylPREDNISolone SOD SUCCI 125 MG/2 ML VIAL IV SCH ×4 (05:40→23:01)
[2019-09-13 06:08] LABS: Glucose,Whole Blood 207 mg/dL (75-99)
[2019-09-13] MEDS: glipiZIDE 5 MG TAB PO SCH ×3 (06:12→17:43)
[2019-09-13] MEDS: INSULIN ASPART (NovoLOG) 100 UNIT/ML VIAL SQ SCH ×4 (06:12→21:18)
[2019-09-13 06:43] LABS: Basophils # (A) 0.1 k/uL (0-0.2); Basophils % (A) 1 %; Eosinophils % (A) 0 %; HCT 48.1 % (39.0-53.0); HGB 15.4 gm/dL (13.0-17.5); Lymphocytes # (A) 1.1 k/uL (1.0-4.8); Lymphocytes % (A) 8 %; MCH 28.1 pg (25.0-35.0); MCHC 32.1 g/dL (31.0-37.0); MCV 87.7 fL (80.0-100.0); Mean Platelet Volume 6.8; Monocytes # (A) 0.4 k/uL (0-1.0); Monocytes % (A) 3 %; Neutrophils # (A) 11.9 k/uL (1.3-7.7); Neutrophils % (A) 88 %; Platelet Count 270 k/uL (150-450); RBC 5.49 m/uL (4.30-5.90); RDW 12.7 % (11.5-15.5); WBC 13.6 k/uL (3.8-10.6)
[2019-09-13 06:55] LABS: ALT 19 U/L (4-49); AST 20 U/L (17-59); African American GFR (CKD) >90 (>60 ml/min/1.73 sqM); Albumin 3.3 g/dL (3.5-5.0); Alkaline Phosphatase 48 U/L (38-126); Anion Gap 7 mmol/L; Blood Urea Nitrogen 19 mg/dL (9-20); Calcium 8.3 mg/dL (8.4-10.2); Carbon Dioxide 29 mmol/L (22-30); Chloride 99 mmol/L (98-107); Glucose 212 mg/dL (74-99); Non-African American GFR(CKD) 89 (>60 ml/min/1.73 sqM); Potassium 3.8 mmol/L (3.5-5.1); Sodium 135 mmol/L (137-145); Total Bilirubin 0.9 mg/dL (0.2-1.3); Total Protein 6.2 g/dL (6.3-8.2)
[2019-09-13] MEDS: IPRATROPIUM-ALBUTEROL 3 ML NEB INHALATION SCH ×4 (08:25→20:37)
[2019-09-13] MEDS: SYMBICORT 160-4.5 MCG INHALER INHALATION SCH ×2 (08:25→20:37)
[2019-09-13] MEDS ORDERED: ISOSORBIDE MONONITRATE ER 60 MG TAB.ER.24H PO SCH (09:00)
[2019-09-13] MEDS: POTASSIUM CHLORIDE ER 20 MEQ TAB.ER PO SCH (09:10)
[2019-09-13] MEDS: CLOPIDOGREL 75 MG TAB PO SCH (09:10)
[2019-09-13] MEDS: FAMOTIDINE 20 MG TAB PO SCH (09:10)
[2019-09-13] MEDS: PANTOPRAZOLE 40 MG TABLET PO SCH (09:10)
[2019-09-13] MEDS: METHIMAZOLE 5 MG TAB PO SCH (09:10)
[2019-09-13] MEDS: FUROSEMIDE 20 MG TAB PO SCH (09:11)
[2019-09-13] MEDS: MULTIVITAMINS, THERA 1 EACH TAB PO SCH (09:11)
[2019-09-13] MEDS: levETIRAcetam 500 MG TAB PO SCH ×2 (09:11→21:18)
[2019-09-13] MEDS: METOPROLOL SUCCINATE (ER) 100 MG TAB.ER.24H PO SCH (09:11)
[2019-09-13] MEDS: guaiFENesin 600 MG TABLET.ER PO SCH ×2 (09:11→21:18)
[2019-09-13] MEDS: AZITHROMYCIN 500 MG TAB PO SCH (09:11)
[2019-09-13] MEDS: APIXABAN 2.5 MG TABLET PO SCH ×2 (09:12→21:18)
[2019-09-13] MEDS: ASCORBIC ACID 500 MG TAB PO SCH (09:12)
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
--- NOTE | 2019-09-13 11:13 | P.PN ---
Subjective This is Elizabeth Palomo PA-C dictating a progress note on this patient The patient was interviewed and examined by me as well as by Dr. Lin Case discussed with Dr. Lin and he agrees with the plan of care HPI/interval history Patient is an 79-year-old male with a past medical history of CAD status post angioplasty, hypertension, dyslipidemia, paroxysmal atrial fibrillation, COPD who presented with shortness of breath and cough and was being treated for COPD exacerbation. He went into atrial fibrillation with RVR and was started on IV Cardizem. Yesterday we increased his metoprolol to 200 mg daily for rate control. We also reduced his Imdur dose to avoid hypotension. He remains on Cardizem IV 5 milligrams per hour. His rates remain in the 90s to 100s. The pressure has been stable. Patient seen and examined resting in bed. Continues to have shortness of breath on exertion. Denies any chest pain. EXAMINATION Patient is afebrile, pulse in the 90s, respirations 20, blood pressure 124/75, oxygen saturation 93% on 3 L nasal cannula Patient seen and examined resting in bed, appears comfortable, in no acute distress Lungs with expiratory wheezing bilaterally Heart is irregularly irregular No lower extremity edema REVIEW OF LABS, ECG WBC 13.6, hemoglobin 15.4, platelets 270, potassium 3.8, BUN 19, creatinine 0.69 Echocardiogram showed EF 55-60% IMPRESSION / ASSESSMENT: Acute COPD exacerbation and tracheobronchitis Paroxysmal atrial fibrillation, currently in atrial fibrillation with rates in the 100s, anticoagulated with eliquis Chronic diastolic heart failure, stable from a heart failure symptom standpoint preserved LV systolic function by recent echo History of CAD status post stenting Hypertension, controlled Dyslipidemia Abnormal TSH PLAN: Continue metoprolol to 200 mg daily for rate control Hold off on weaning Cardizem until his lungs improve Continue isosorbide, lisinopril Anticoagulation with eliquis Objective - Vital Signs Vital signs: Vital Signs Temp 97.7 F 09/13/19 08:00 Pulse 86 09/13/19 08:38 Resp 20 09/13/19 08:00 BP 124/75 09/13/19 08:00 Pulse Ox 93 L 09/13/19 08:27 Intake & Output 09/12/19 09/13/19 09/13/19 18:59 06:59 18:59 Intake Total 713.75 180 Balance 713.75 180 Weight 89.2 kg Intake: IV 40 Diltiazem 125 mg In 40 Sodium Chloride 0.9% 100 ml @ 5 MG/HR 5 mls/hr IV .Q24H [facility] Rx#:[id number] Intake, IV Titration 113.75 Amount Diltiazem 125 mg In 113.75 Sodium Chloride 0.9% 100 ml @ 5 MG/HR 5 mls/hr IV .Q24H [facility] Rx#:[id number] Oral 560 180 Other: Voiding Method Toilet Toilet # Voids 2 1 1 - Labs CBC & Chem 7: 09/13/19 05:22 09/13/19 05:22 Labs: Abnormal Lab Results - Last 24 Hours (Table) 09/12/19 09/12/19 09/12/19 Range/Units 11:50 16:54 20:26 WBC (3.8-10.6) k/uL Neutrophils # (1.3-7.7) k/uL Sodium (137-145) mmol/L Glucose (74-99) mg/dL POC Glucose (mg/dL) 263 H 225 H 164 H (75-99) mg/dL Calcium (8.4-10.2) mg/dL Total Protein (6.3-8.2) g/dL Albumin (3.5-5.0) g/dL 09/13/19 09/13/19 09/13/19 Range/Units 05:22 05:22 06:06 WBC 13.6 H (3.8-10.6) k/uL Neutrophils # 11.9 H (1.3-7.7) k/uL Sodium 135 L (137-145) mmol/L Glucose 212 H (74-99) mg/dL POC Glucose (mg/dL) 207 H (75-99) mg/dL Calcium 8.3 L (8.4-10.2) mg/dL Total Protein 6.2 L (6.3-8.2) g/dL Albumin 3.3 L (3.5-5.0) g/dL Microbiology - Last 24 Hours (Table) 09/06/19 21:46 Blood Culture - Final Blood No Growth after 144 hours
--- NOTE | 2019-09-13 11:18 | P.PN ---
Subjective Progress Note Date: 09/13/19 This is a 79-year-old male patient who presented with complaints of increased shortness of breath and wheezing. Patient was recently admitted and discharged last week. Patient reports that he did feel much improved but then started to progressively get worse over the past couple days. Patient states he was very eager to go home in order to see his who is at [facility]. Patient does have past medical history of asthma, coronary artery disease, COPD, CVA, diabetes mellitus, hyperlipidemia, hypertension, myocardial infarction, osteoarthritis, seizure disorder, prostate cancer and previous heart cath with stents. Chest x-ray completed showing mild pleural diaphragmatic lying left lung base unchanged. No acute lung disease. EKG completed showing normal sinus rhythm septal infarct, age undetermined. Pulmonary services have been consulted. Patient started on Solu-Medrol and DuoNeb breathing treatments. Patient also started on azithromycin. Lactic acid elevated at 2. 9 repeat lactic acid 0.9. On examination patient still has significant expiratory wheezing. Patient denies chest pain. Patient denies nausea vomiting or diarrhea. Patient denies any urinary burning or frequency On 09/08/2019 patient is alert and oriented 3. Patient still having significant wheezing. Patient remains on azithromycin and Solu-Medrol. Patient verbalized understanding that he will likely have to stay throughout the weekend. Pulmonary services are following. Patient denies chest pain. Patient denies nausea vomiting or diarrhea. Patient denies any urinary burning or frequency. Patient does state he feels slightly more improved from yesterday. Continue Mucinex. Sputum culture ordered On 09/09/2019 patient is alert and oriented 3. Patient reports some improvement with shortness breath and wheezing. Patient still had significant wheezing to auscultation. Cardiology services have been consulted due to known patient's cardiac history. 2-D echo ordered. Patient ordered for cardiac telemetry. At this time patient denies chest pain. Patient denies nausea vomiting or diarrhea. Patient denies any urinary burning or frequency On 09/10/2019 patient was seen and examined on the medical floor he is alert and oriented 3 in no apparent distress he is still complaining of cough, shortness of breath, and wheezing. This morning patient developed atrial fibrillation with rapid ventricular response he was evaluated by cardiology and patient will be transferred to telemetry floor and will be started on Cardizem drip otherwise patient denies any symptoms there is no fever or chills no headache or dizziness no chest pain no nausea or vomiting no abdominal pain no diarrhea no burning with urination no frequency or urgency and no hematuria. On 09/11/2019 patient was seen and examined on the medical floor he states he is feeling better he is still having some cough some shortness of breath with activity and wheezing otherwise he denies any complaints there is no fever or chills no headache or dizziness no chest pain no nausea or vomiting no abdominal pain no diarrhea no burning was urination no frequency or urgency and no hematuria On 09/12/2019 patient is alert and oriented 3. Patient states he is feeling improved. Patient still has productive cough and some shortness of breath with activity. Patient remains on Cardizem for control at this time. Cardiology services are following medications to be adjusted. Patient remains on eliquis for anticoagulation. Patient remains on IV Solu-Medrol and azithromycin On 09/13/2019 patient is alert and oriented 3. Patient continuing to improve in regards to respiratory wheezing. Patient maintained on Cardizem for rate control. At this time patient denies chest pain. Patient denies shortness of breath. Patient denies nausea vomiting or diarrhea. Patient denies any urinary burning or frequency Objective - Vital Signs Vital signs: Vital Signs Temp 97.7 F 09/13/19 08:00 Pulse 86 09/13/19 08:38 Resp 20 09/13/19 08:00 BP 124/75 09/13/19 08:00 Pulse Ox 93 L 09/13/19 08:27 Intake & Output 09/12/19 09/13/19 09/13/19 18:59 06:59 18:59 Intake Total 713.75 180 Balance 713.75 180 Weight 89.2 kg Intake: IV 40 Diltiazem 125 mg In 40 Sodium Chloride 0.9% 100 ml @ 5 MG/HR 5 mls/hr IV .Q24H [facility] Rx#:[id number] Intake, IV Titration 113.75 Amount Diltiazem 125 mg In 113.75 Sodium Chloride 0.9% 100 ml @ 5 MG/HR 5 mls/hr IV .Q24H [facility] Rx#:[id number] Oral 560 180 Other: Voiding Method Toilet Toilet # Voids 2 1 1 - Exam Head normocephalic Neck supple Lungs diminished bilaterally with significant expiratory wheezing Heart regular rate and rhythm S1-S2, no rub or gallop Abdomen is soft nontender nondistended positive bowel sounds no hepatosplenomegaly Extremities no edema Neuro alert and orientated to 3 - Labs CBC & Chem 7: 09/13/19 05:22 09/13/19 05:22 Labs: Abnormal Lab Results - Last 24 Hours (Table) 09/12/19 09/12/19 09/12/19 Range/Units 11:50 16:54 20:26 WBC (3.8-10.6) k/uL Neutrophils # (1.3-7.7) k/uL Sodium (137-145) mmol/L Glucose (74-99) mg/dL POC Glucose (mg/dL) 263 H 225 H 164 H (75-99) mg/dL Calcium (8.4-10.2) mg/dL Total Protein (6.3-8.2) g/dL Albumin (3.5-5.0) g/dL 09/13/19 09/13/19 09/13/19 Range/Units 05:22 05:22 06:06 WBC 13.6 H (3.8-10.6) k/uL Neutrophils # 11.9 H (1.3-7.7) k/uL Sodium 135 L (137-145) mmol/L Glucose 212 H (74-99) mg/dL POC Glucose (mg/dL) 207 H (75-99) mg/dL Calcium 8.3 L (8.4-10.2) mg/dL Total Protein 6.2 L (6.3-8.2) g/dL Albumin 3.3 L (3.5-5.0) g/dL Microbiology - Last 24 Hours (Table) 09/06/19 21:46 Blood Culture - Final Blood No Growth after 144 hours Assessment and Plan Assessment: 1. Increased shortness of breath related to acute COPD exacerbation and acute purulent bronchitis. Chest x-ray completed showing mild pleural diaphragmatic scarring left lung base unchanged. No acute lung disease. Patient started Solu-Medrol azithromycin. Continue DuoNeb breathing treatments. Pulmonary services have been consulted. sputum culture ordered. Cardiology services have been consulted 2-D echo has been ordered 2. Acute purulent tracheobronchitis. Patient started on azithromycin. Pulmonary service is consulted 3. History of chronic atrial fibrillation patient maintained on eliquis 4. History of coronary disease with previous stent placement. Maintained on Plavix 5. History of COPD 6. History of prostate cancer 7. History of diabetes mellitus type 2. sliding scale insulin has been ordered. Hemoglobin A1c has been ordered 8. History of seizures. Maintained on Keppra 9. A. fib with rapid ventricular response. Patient currently maintained on Cardizem drip. Cardiology services are consulted medications to be adjusted. Patient maintained on eliquis for anticoagulation 10. Hyperthyroidism. TSH low at 0.119. Patient was started on Tapazole due to elevated heart rate. Patient also will be arranged to follow with endocrinology outpatient for further management DVT prophylaxis eliquis. GI prophylaxis Pepcid Cardiology and pulmonary service is consulted remains on IV Solu-Medrol and azithromycin I performed an examination of the patient and discussed their management with the Nurse Practitioner. I have reviewed the Nurse Practitioner's notes and agree with the documented findings and plan of care
[2019-09-13 12:02] LABS: Glucose,Whole Blood 198 mg/dL (75-99)
[2019-09-13 17:00] LABS: Glucose,Whole Blood 224 mg/dL (75-99)
[2019-09-13] MEDS: LISINOPRIL 2.5 MG TAB PO SCH (17:43)
[2019-09-13 20:27] LABS: Glucose,Whole Blood 302 mg/dL (75-99)
[2019-09-13] MEDS: ATORVASTATIN 10 MG TAB PO SCH (21:18)
[2019-09-13] MEDS: diphenhydrAMINE 25 MG CAP PO SCH (21:18)
[2019-09-13] MEDS: MONTELUKAST 10 MG TAB PO SCH (21:18)
[2019-09-14 05:40] LABS: Glucose,Whole Blood 219 mg/dL (75-99)
[2019-09-14] MEDS: DILTIAZEM 125 MG in SODIUM CHLORIDE 0.9% 100 ML IV SCH (06:17)
[2019-09-14] MEDS: INSULIN ASPART (NovoLOG) 100 UNIT/ML VIAL SQ SCH ×4 (06:21→20:34)
[2019-09-14] MEDS: methylPREDNISolone SOD SUCCI 125 MG/2 ML VIAL IV SCH ×4 (06:21→23:10)
[2019-09-14] MEDS: glipiZIDE 5 MG TAB PO SCH ×3 (06:21→16:49)
[2019-09-14 07:17] LABS: Basophils # (A) 0.1 k/uL (0-0.2); Basophils % (A) 0 %; Eosinophils % (A) 0 %; HCT 48.1 % (39.0-53.0); HGB 15.5 gm/dL (13.0-17.5); Lymphocytes # (A) 0.9 k/uL (1.0-4.8); Lymphocytes % (A) 6 %; MCH 28.2 pg (25.0-35.0); MCHC 32.3 g/dL (31.0-37.0); MCV 87.5 fL (80.0-100.0); Mean Platelet Volume 6.8; Monocytes # (A) 0.5 k/uL (0-1.0); Monocytes % (A) 4 %; Neutrophils # (A) 12.5 k/uL (1.3-7.7); Neutrophils % (A) 89 %; Platelet Count 250 k/uL (150-450); RBC 5.49 m/uL (4.30-5.90); RDW 12.6 % (11.5-15.5)
[2019-09-14 07:30] LABS: ALT 19 U/L (4-49); AST 21 U/L (17-59); African American GFR (CKD) >90 (>60 ml/min/1.73 sqM); Albumin 3.2 g/dL (3.5-5.0); Alkaline Phosphatase 49 U/L (38-126); Anion Gap 6 mmol/L; Blood Urea Nitrogen 21 mg/dL (9-20); Calcium 8.3 mg/dL (8.4-10.2); Carbon Dioxide 30 mmol/L (22-30); Chloride 99 mmol/L (98-107); Glucose 240 mg/dL (74-99); Non-African American GFR(CKD) >90 (>60 ml/min/1.73 sqM); Potassium 3.9 mmol/L (3.5-5.1); Sodium 135 mmol/L (137-145); Total Bilirubin 0.9 mg/dL (0.2-1.3); Total Protein 5.8 g/dL (6.3-8.2)
[2019-09-14] MEDS: PANTOPRAZOLE 40 MG TABLET PO SCH (08:04)
[2019-09-14] MEDS: guaiFENesin 600 MG TABLET.ER PO SCH ×2 (08:04→20:34)
[2019-09-14] MEDS: FAMOTIDINE 20 MG TAB PO SCH (08:04)
[2019-09-14] MEDS: FUROSEMIDE 20 MG TAB PO SCH (08:04)
[2019-09-14] MEDS: POTASSIUM CHLORIDE ER 20 MEQ TAB.ER PO SCH (08:05)
[2019-09-14] MEDS: AZITHROMYCIN 500 MG TAB PO SCH (08:05)
[2019-09-14] MEDS: MULTIVITAMINS, THERA 1 EACH TAB PO SCH (08:05)
[2019-09-14] MEDS: APIXABAN 2.5 MG TABLET PO SCH ×2 (08:05→20:34)
[2019-09-14] MEDS: CLOPIDOGREL 75 MG TAB PO SCH (08:05)
[2019-09-14] MEDS: METHIMAZOLE 5 MG TAB PO SCH (08:05)
[2019-09-14] MEDS: levETIRAcetam 500 MG TAB PO SCH ×2 (08:05→20:34)
[2019-09-14] MEDS: METOPROLOL SUCCINATE (ER) 100 MG TAB.ER.24H PO SCH (08:05)
[2019-09-14] MEDS: ASCORBIC ACID 500 MG TAB PO SCH (08:05)
[2019-09-14] MEDS: SYMBICORT 160-4.5 MCG INHALER INHALATION SCH ×2 (08:10→20:00)
[2019-09-14] MEDS: IPRATROPIUM-ALBUTEROL 3 ML NEB INHALATION SCH ×4 (08:10→20:00)
[2019-09-14 11:27] LABS: Glucose,Whole Blood 207 mg/dL (75-99)
--- NOTE | 2019-09-14 11:28 | P.PN ---
Subjective Progress Note Date: 09/13/19 Principal diagnosis: Acute COPD exacerbation Purulent tracheobronchitis Chronic atrial fibrillation History of coronary artery disease stent placement Obstructive sleep apnea Prostate cancer 09/13/2019, patient seen and examined remains and evaluated, and ongoing cough congestion would recommend to continue plan of care 09/12/2019, patient seen eval examined during the rounds labs reviewed medications reviewed care plan discussed, patient is still congested still short of breath, still have audible wheezing are present, we'll repeat the chest x-ray 09/10/2019, patient seen eval examined during the rounds of epinephrine and medications reviewed care plan discussed, overall respiratory status is relatively more stable, but is still have ongoing cough congestion shortness of breath and wheezing, cardiovascular services has been following for A. fib and rapid ventricular response have been placed on Cardizem 09/09/2019, patient seen eval examined during the rounds labs reviewed medications reviewed care plan discussed with the patient at length still have ongoing wheezing cough and congestion is present, sputum cultures are pending, patient has been evaluated by cardiovascular services for diastolic heart failure, computed to be on antibiotics breathing treatment and steroids 09/08/2019, patient seen and evaluated examined during the rounds labs reviewed medications reviewed care plan discussed with the patient is still have ongoing intermittent cough congestion shortness of breath on continue current course of treatment with IV steroids antibiotics and breathing treatments O follow clinical course closely, care plan discussed with the primary service at length This is a 79-year-old with end-stage severe COPD emphysema also has a problem with obstructive sleep apnea patient was recently in the hospital improved and discharged but in the last one today having increasing shortness of breath has been wheezing cough and shortness of breath decided to come into the hospital patient was evaluated in the emergency department chest x-ray continued to show mild left basal scarring or new active infiltrate identified lab status stable white cell count normal however lactic acid was elevated 2.9 with rehydration improved 0.9, patient has been admitted into hospital for IV steroids breathing treatments Objective - Vital Signs Vital signs: Vital Signs Temp 97.3 F L 09/13/19 15:37 Pulse 91 09/13/19 15:37 Resp 20 09/13/19 15:37 BP 117/71 09/13/19 15:37 Pulse Ox 93 L 09/13/19 15:37 Intake & Output 09/12/19 09/13/19 09/13/19 18:59 06:59 18:59 Intake Total 713.75 480.333 Balance 713.75 480.333 Weight 89.2 kg Intake: IV 40 Diltiazem 125 mg In 40 Sodium Chloride 0.9% 100 ml @ 5 MG/HR 5 mls/hr IV .Q24H [facility] Rx#:[id number] Intake, IV Titration 113.75 120.333 Amount Diltiazem 125 mg In 113.75 120.333 Sodium Chloride 0.9% 100 ml @ 5 MG/HR 5 mls/hr IV .Q24H [facility] Rx#:[id number] Oral 560 360 Other: Voiding Method Toilet Toilet Toilet # Voids 2 1 1 - Exam - Constitutional General appearance: average body habitus, cooperative, disheveled, mild distress - EENT Eyes: EOMI, PERRLA, dentition normal, normal appearance ENT: normal oropharynx Ears: bilateral: normal - Neck Neck: normal ROM Carotids: bilateral: upstroke normal - Respiratory Respiratory: bilateral: diminished, rhonchi, wheezing, prolonged expiration, negative: CTA, dullness, rales, prolonged inspiration - Cardiovascular Rhythm: regular Heart sounds: normal: S1, S2 - Gastrointestinal General gastrointestinal: normal bowel sounds - Integumentary Integumentary: normal turgor - Neurologic Neurologic: CNII-XII intact - Musculoskeletal Musculoskeletal: gait normal, generalized weakness, strength equal bilaterally - Psychiatric Psychiatric: A&O x's 3, appropriate affect, intact judgment & insight - Labs CBC & Chem 7: 09/14/19 06:27 09/14/19 06:27 Labs: Abnormal Lab Results - Last 24 Hours (Table) 09/12/19 09/13/19 09/13/19 Range/Units 20:26 05:22 05:22 WBC 13.6 H (3.8-10.6) k/uL Neutrophils # 11.9 H (1.3-7.7) k/uL Sodium 135 L (137-145) mmol/L Glucose 212 H (74-99) mg/dL POC Glucose (mg/dL) 164 H (75-99) mg/dL Calcium 8.3 L (8.4-10.2) mg/dL Total Protein 6.2 L (6.3-8.2) g/dL Albumin 3.3 L (3.5-5.0) g/dL 09/13/19 09/13/19 09/13/19 Range/Units 06:06 11:42 16:48 WBC (3.8-10.6) k/uL Neutrophils # (1.3-7.7) k/uL Sodium (137-145) mmol/L Glucose (74-99) mg/dL POC Glucose (mg/dL) 207 H 198 H 224 H (75-99) mg/dL Calcium (8.4-10.2) mg/dL Total Protein (6.3-8.2) g/dL Albumin (3.5-5.0) g/dL Microbiology - Last 24 Hours (Table) 09/06/19 21:46 Blood Culture - Final Blood No Growth after 144 hours Assessment and Plan Assessment: Acute COPD exacerbation Purulent tracheobronchitis Acute on Chronic atrial fibrillation History of coronary artery disease stent placement Obstructive sleep apnea Chronic diastolic heart failure Prostate cancer Plan: IV steroids, can be changed to oral at the time of discharge Breathing treatments Continue home medications Broad-spectrum antibiotics Sputum studies if able to obtain Further recommendations pending plan of care as per clinical response of the patient Time with Patient: Greater than 30
--- NOTE | 2019-09-14 11:29 | P.PN ---
Subjective Progress Note Date: 09/14/19 Principal diagnosis: Acute COPD exacerbation Purulent tracheobronchitis Chronic atrial fibrillation History of coronary artery disease stent placement Obstructive sleep apnea Prostate cancer 09/14/2019, patient seen eval examined during the rounds labs reviewed medications reviewed care plan discussed, respiratory status is slightly better not wheezing anymore but during deep breathing exercises and coughing patient does have evidence of wheezing in the airway would recommend to continue current plan of care for another 24-48 hours 09/13/2019, patient seen and examined remains and evaluated, and ongoing cough congestion would recommend to continue plan of care 09/12/2019, patient seen eval examined during the rounds labs reviewed medications reviewed care plan discussed, patient is still congested still short of breath, still have audible wheezing are present, we'll repeat the chest x-ray 09/10/2019, patient seen eval examined during the rounds of epinephrine and medications reviewed care plan discussed, overall respiratory status is relatively more stable, but is still have ongoing cough congestion shortness of breath and wheezing, cardiovascular services has been following for A. fib and rapid ventricular response have been placed on Cardizem 09/09/2019, patient seen eval examined during the rounds labs reviewed medications reviewed care plan discussed with the patient at length still have ongoing wheezing cough and congestion is present, sputum cultures are pending, patient has been evaluated by cardiovascular services for diastolic heart jeffery lure, computed to be on antibiotics breathing treatment and steroids 09/08/2019, patient seen and evaluated examined during the rounds labs reviewed medications reviewed care plan discussed with the patient is still have ongoing intermittent cough congestion shortness of breath on continue current course of treatment with IV steroids antibiotics and breathing treatments O follow clinical course closely, care plan discussed with the primary service at length This is a 79-year-old with end-stage severe COPD emphysema also has a problem with obstructive sleep apnea patient was recently in the hospital improved and discharged but in the last one today having increasing shortness of breath has been wheezing cough and shortness of breath decided to come into the hospital patient was evaluated in the emergency department chest x-ray continued to show mild left basal scarring or new active infiltrate identified lab status stable white cell count normal however lactic acid was elevated 2.9 with rehydration improved 0.9, patient has been admitted into hospital for IV steroids breathing treatments Objective - Vital Signs Vital signs: Vital Signs Temp 97.5 F L 09/14/19 08:00 Pulse 96 09/14/19 08:24 Resp 18 09/14/19 08:00 BP 133/78 09/14/19 08:00 Pulse Ox 94 L 09/14/19 08:13 Intake & Output 09/13/19 09/14/19 09/14/19 18:59 06:59 18:59 Intake Total 660.333 240 Balance 660.333 240 Weight 88.5 kg Intake: Intake, IV Titration 120.333 Amount Diltiazem 125 mg In 120.333 Sodium Chloride 0.9% 100 ml @ 5 MG/HR 5 mls/hr IV .Q24H [facility] Rx#:[id number] Oral 540 240 Other: Voiding Method Toilet Toilet # Voids 2 1 1 - Exam - Constitutional General appearance: average body habitus, cooperative, disheveled, mild distress - EENT Eyes: EOMI, PERRLA, dentition normal, normal appearance ENT: normal oropharynx Ears: bilateral: normal - Neck Neck: normal ROM Carotids: bilateral: upstroke normal - Respiratory Respiratory: bilateral: diminished, rhonchi, wheezing, prolonged expiration, negative: CTA, dullness, rales, prolonged inspiration - Cardiovascular Rhythm: regular Heart sounds: normal: S1, S2 - Gastrointestinal General gastrointestinal: normal bowel sounds - Integumentary Integumentary: normal turgor - Neurologic Neurologic: CNII-XII intact - Musculoskeletal Musculoskeletal: gait normal, generalized weakness, strength equal bilaterally - Psychiatric Psychiatric: A&O x's 3, appropriate affect, intact judgment & insight - Labs CBC & Chem 7: 09/14/19 06:27 09/14/19 06:27 Labs: Abnormal Lab Results - Last 24 Hours (Table) 09/13/19 09/13/19 09/13/19 Range/Units 11:42 16:48 20:26 WBC (3.8-10.6) k/uL Neutrophils # (1.3-7.7) k/uL Lymphocytes # (1.0-4.8) k/uL Sodium (137-145) mmol/L BUN (9-20) mg/dL Glucose (74-99) mg/dL POC Glucose (mg/dL) 198 H 224 H 302 H (75-99) mg/dL Calcium (8.4-10.2) mg/dL Total Protein (6.3-8.2) g/dL Albumin (3.5-5.0) g/dL 09/14/19 09/14/19 09/14/19 Range/Units 05:39 06:27 06:27 WBC 14.0 H (3.8-10.6) k/uL Neutrophils # 12.5 H (1.3-7.7) k/uL Lymphocytes # 0.9 L (1.0-4.8) k/uL Sodium 135 L (137-145) mmol/L BUN 21 H (9-20) mg/dL Glucose 240 H (74-99) mg/dL POC Glucose (mg/dL) 219 H (75-99) mg/dL Calcium 8.3 L (8.4-10.2) mg/dL Total Protein 5.8 L (6.3-8.2) g/dL Albumin 3.2 L (3.5-5.0) g/dL 09/14/19 Range/Units 11:26 WBC (3.8-10.6) k/uL Neutrophils # (1.3-7.7) k/uL Lymphocytes # (1.0-4.8) k/uL Sodium (137-145) mmol/L BUN (9-20) mg/dL Glucose (74-99) mg/dL POC Glucose (mg/dL) 207 H (75-99) mg/dL Calcium (8.4-10.2) mg/dL Total Protein (6.3-8.2) g/dL Albumin (3.5-5.0) g/dL Assessment and Plan Assessment: Acute COPD exacerbation Purulent tracheobronchitis Acute on Chronic atrial fibrillation History of coronary artery disease stent placement Obstructive sleep apnea Chronic diastolic heart failure Prostate cancer Plan: IV steroids, can be changed to oral at the time of discharge Breathing treatments Continue home medications Broad-spectrum antibiotics Sputum studies if able to obtain Further recommendations pending plan of care as per clinical response of the patient Time with Patient: Greater than 30
[2019-09-14] MEDS: ISOSORBIDE MONONITRATE ER 60 MG TAB.ER.24H PO SCH (11:46)
[2019-09-14] MEDS: DILTIAZEM ORAL 30 MG TAB PO SCH ×3 (11:46→20:35)
--- NOTE | 2019-09-14 13:19 | P.PN ---
Subjective Progress Note Date: 09/14/19 This is a 79-year-old male patient who presented with complaints of increased shortness of breath and wheezing. Patient was recently admitted and discharged last week. Patient reports that he did feel much improved but then started to progressively get worse over the past couple days. Patient states he was very eager to go home in order to see his who is at [facility]. Patient does have past medical history of asthma, coronary artery disease, COPD, CVA, diabetes mellitus, hyperlipidemia, hypertension, myocardial infarction, osteoarthritis, seizure disorder, prostate cancer and previous heart cath with stents. Chest x-ray completed showing mild pleural diaphragmatic lying left lung base unchanged. No acute lung disease. EKG completed showing normal sinus rhythm septal infarct, age undetermined. Pulmonary services have been consulted. Patient started on Solu-Medrol and DuoNeb breathing treatments. Patient also started on azithromycin. Lactic acid elevated at 2. 9 repeat lactic acid 0.9. On examination patient still has significant expiratory wheezing. Patient denies chest pain. Patient denies nausea vomiting or diarrhea. Patient denies any urinary burning or frequency On 09/08/2019 patient is alert and oriented 3. Patient still having significant wheezing. Patient remains on azithromycin and Solu-Medrol. Patient verbalized understanding that he will likely have to stay throughout the weekend. Pulmonary services are following. Patient denies chest pain. Patient denies nausea vomiting or diarrhea. Patient denies any urinary burning or frequency. Patient does state he feels slightly more improved from yesterday. Continue Mucinex. Sputum culture ordered On 09/09/2019 patient is alert and oriented 3. Patient reports some improvement with shortness breath and wheezing. Patient still had significant wheezing to auscultation. Cardiology services have been consulted due to known patient's cardiac history. 2-D echo ordered. Patient ordered for cardiac telemetry. At this time patient denies chest pain. Patient denies nausea vomiting or diarrhea. Patient denies any urinary burning or frequency On 09/10/2019 patient was seen and examined on the medical floor he is alert and oriented 3 in no apparent distress he is still complaining of cough, shortness of breath, and wheezing. This morning patient developed atrial fibrillation with rapid ventricular response he was evaluated by cardiology and patient will be transferred to telemetry floor and will be started on Cardizem drip otherwise patient denies any symptoms there is no fever or chills no headache or dizziness no chest pain no nausea or vomiting no abdominal pain no diarrhea no burning with urination no frequency or urgency and no hematuria. On 09/11/2019 patient was seen and examined on the medical floor he states he is feeling better he is still having some cough some shortness of breath with activity and wheezing otherwise he denies any complaints there is no fever or chills no headache or dizziness no chest pain no nausea or vomiting no abdominal pain no diarrhea no burning was urination no frequency or urgency and no hematuria On 09/12/2019 patient is alert and oriented 3. Patient states he is feeling improved. Patient still has productive cough and some shortness of breath with activity. Patient remains on Cardizem for control at this time. Cardiology services are following medications to be adjusted. Patient remains on eliquis for anticoagulation. Patient remains on IV Solu-Medrol and azithromycin On 09/13/2019 patient is alert and oriented 3. Patient continuing to improve in regards to respiratory wheezing. Patient maintained on Cardizem for rate control. At this time patient denies chest pain. Patient denies shortness of breath. Patient denies nausea vomiting or diarrhea. Patient denies any urinary burning or frequency On 09/14/2019 patient is alert and oriented 3. Patient's showing slight improvement in regards to wheezing. Continue IV Solu-Medrol and azithromycin per pulmonary services. Patient also remains on Cardizem for rate control. Heart rate is improving. Patient is continuing to get short of breath with activity. Patient denies chest pain. Patient denies nausea vomiting or diarrhea. Patient denies any urinary burning or frequency Objective - Vital Signs Vital signs: Vital Signs Temp 97.5 F L 09/14/19 08:00 Pulse 112 H 09/14/19 12:25 Resp 18 09/14/19 12:10 BP 114/77 09/14/19 12:10 Pulse Ox 93 L 09/14/19 12:10 Intake & Output 09/13/19 09/14/19 09/14/19 18:59 06:59 18:59 Intake Total 660.333 480 Balance 660.333 480 Weight 88.5 kg Intake: Intake, IV Titration 120.333 Amount Diltiazem 125 mg In 120.333 Sodium Chloride 0.9% 100 ml @ 5 MG/HR 5 mls/hr IV .Q24H [facility] Rx#:[id number] Oral 540 480 Other: Voiding Method Toilet Toilet # Voids 2 1 1 - Exam Head normocephalic Neck supple Lungs diminished bilaterally with significant expiratory wheezing Heart regular rate and rhythm S1-S2, no rub or gallop Abdomen is soft nontender nondistended positive bowel sounds no hepatosplenomegaly Extremities no edema Neuro alert and orientated to 3 - Labs CBC & Chem 7: 09/14/19 06:27 09/14/19 06:27 Labs: Abnormal Lab Results - Last 24 Hours (Table) 09/13/19 09/13/19 09/14/19 Range/Units 16:48 20:26 05:39 WBC (3.8-10.6) k/uL Neutrophils # (1.3-7.7) k/uL Lymphocytes # (1.0-4.8) k/uL Sodium (137-145) mmol/L BUN (9-20) mg/dL Glucose (74-99) mg/dL POC Glucose (mg/dL) 224 H 302 H 219 H (75-99) mg/dL Calcium (8.4-10.2) mg/dL Total Protein (6.3-8.2) g/dL Albumin (3.5-5.0) g/dL 09/14/19 09/14/19 09/14/19 Range/Units 06:27 06:27 11:26 WBC 14.0 H (3.8-10.6) k/uL Neutrophils # 12.5 H (1.3-7.7) k/uL Lymphocytes # 0.9 L (1.0-4.8) k/uL Sodium 135 L (137-145) mmol/L BUN 21 H (9-20) mg/dL Glucose 240 H (74-99) mg/dL POC Glucose (mg/dL) 207 H (75-99) mg/dL Calcium 8.3 L (8.4-10.2) mg/dL Total Protein 5.8 L (6.3-8.2) g/dL Albumin 3.2 L (3.5-5.0) g/dL Assessment and Plan Assessment: 1. Increased shortness of breath related to acute COPD exacerbation and acute purulent bronchitis. Chest x-ray completed showing mild pleural diaphragmatic scarring left lung base unchanged. No acute lung disease. Patient started Solu-Medrol azithromycin. Continue DuoNeb breathing treatments. Denies services are following. Patient maintained on Solu-Medrol and azithromycin. 2. Acute purulent tracheobronchitis. Patient started on azithromycin. Pulmonary service is consulted 3. History of chronic atrial fibrillation patient maintained on eliquis 4. History of coronary disease with previous stent placement. Maintained on Plavix 5. History of COPD 6. History of prostate cancer 7. History of diabetes mellitus type 2. sliding scale insulin has been ordered. Hemoglobin A1c has been ordered 8. History of seizures. Maintained on Keppra 9. A. fib with rapid ventricular response. Patient currently maintained on Car dizem drip. Cardiology services are consulted medications to be adjusted. Patient maintained on eliquis for anticoagulation 2-D echo completed showing EF of 55-60 10. Hyperthyroidism. TSH low at 0.119. Patient was started on Tapazole due to elevated heart rate. Patient also will be arranged to follow with endocrinology outpatient for further management DVT prophylaxis eliquis. GI prophylaxis Pepcid Cardiology and pulmonary service is consulted remains on IV Solu-Medrol and azithromycin I performed an examination of the patient and discussed their management with the Nurse Practitioner. I have reviewed the Nurse Practitioner's notes and agree with the documented findings and plan of care
[2019-09-14 14:36] VITALS: BMI 31.4
--- NOTE | 2019-09-14 16:20 | P.PN ---
Subjective This is Elizabeth Palomo PA-C dictating a progress note on this patient The patient was interviewed and examined by me as well as by Dr. Lin Case discussed with Dr. Lin and he agrees with the plan of care HPI/interval history Patient is an 79-year-old male with a past medical history of CAD status post angioplasty, hypertension, dyslipidemia, paroxysmal atrial fibrillation, COPD who presented with shortness of breath and cough and was being treated for COPD exacerbation. He went into atrial fibrillation and has been on IV Cardizem. We have slowly increased his metoprolol to 200 mg daily for rate control. He remains on Cardizem IV 5 milligrams per hour. His rates remain in the 80s to 90s. Blood pressure remains stable. Patient seen and examined resting in bed. States his breathing is improving. Continues to have a cough. Denies any chest pain or dizziness. EXAMINATION Patient is afebrile, pulse in the 90s, respirations 18, blood pressure 114/69, oxygen saturation 95% Patient seen and examined resting in bed, appears comfortable, in no acute distress Lungs with expiratory wheezing bilaterally Heart is irregularly irregular No lower extremity edema REVIEW OF LABS, ECG WBC 14.0, myoglobin 15.5, platelets 250, potassium 3.9, BUN 21, creatinine 0.66 Echocardiogram showed EF 55-60% IMPRESSION / ASSESSMENT: Acute COPD exacerbation and tracheobronchitis Paroxysmal atrial fibrillation, currently in atrial fibrillation with rates in the 90s, anticoagulated with eliquis Chronic diastolic heart failure, stable from a heart failure symptom standpoint preserved LV systolic function by recent echo History of CAD status post stenting Hypertension, controlled Dyslipidemia Abnormal TSH PLAN: Continue metoprolol to 200 mg daily for rate control Stop IV Cardizem and switched to by mouth Cardizem 30 mg by mouth 3 times a day Continue to monitor telemetry Continue isosorbide, lisinopril Anticoagulation with eliquis Objective - Vital Signs Vital signs: Vital Signs Temp 97.4 F L 09/14/19 15:57 Pulse 95 09/14/19 15:57 Resp 18 09/14/19 16:00 BP 114/69 09/14/19 15:57 Pulse Ox 95 09/14/19 15:57 Intake & Output 09/13/19 09/14/19 09/14/19 18:59 06:59 18:59 Intake Total 660.333 480 Balance 660.333 480 Weight 88.5 kg 88.5 kg Intake: Intake, IV Titration 120.333 Amount Diltiazem 125 mg In 120.333 Sodium Chloride 0.9% 100 ml @ 5 MG/HR 5 mls/hr IV .Q24H [facility] Rx#:[id number] Oral 540 480 Other: Voiding Method Toilet Toilet Toilet # Voids 2 1 1 - Labs CBC & Chem 7: 09/14/19 06:27 09/14/19 06:27 Labs: Abnormal Lab Results - Last 24 Hours (Table) 09/13/19 09/13/19 09/14/19 Range/Units 16:48 20:26 05:39 WBC (3.8-10.6) k/uL Neutrophils # (1.3-7.7) k/uL Lymphocytes # (1.0-4.8) k/uL Sodium (137-145) mmol/L BUN (9-20) mg/dL Glucose (74-99) mg/dL POC Glucose (mg/dL) 224 H 302 H 219 H (75-99) mg/dL Calcium (8.4-10.2) mg/dL Total Protein (6.3-8.2) g/dL Albumin (3.5-5.0) g/dL 09/14/19 09/14/19 09/14/19 Range/Units 06:27 06:27 11:26 WBC 14.0 H (3.8-10.6) k/uL Neutrophils # 12.5 H (1.3-7.7) k/uL Lymphocytes # 0.9 L (1.0-4.8) k/uL Sodium 135 L (137-145) mmol/L BUN 21 H (9-20) mg/dL Glucose 240 H (74-99) mg/dL POC Glucose (mg/dL) 207 H (75-99) mg/dL Calcium 8.3 L (8.4-10.2) mg/dL Total Protein 5.8 L (6.3-8.2) g/dL Albumin 3.2 L (3.5-5.0) g/dL
[2019-09-14 16:25] LABS: Glucose,Whole Blood 178 mg/dL (75-99)
[2019-09-14] MEDS: LISINOPRIL 2.5 MG TAB PO SCH (16:49)
[2019-09-14 20:30] LABS: Glucose,Whole Blood 234 mg/dL (75-99)
[2019-09-14] MEDS: MONTELUKAST 10 MG TAB PO SCH (20:33)
[2019-09-14] MEDS: diphenhydrAMINE 25 MG CAP PO SCH (20:34)
[2019-09-14] MEDS: ATORVASTATIN 10 MG TAB PO SCH (20:34)
[2019-09-15 05:29] LABS: Glucose,Whole Blood 233 mg/dL (75-99)
[2019-09-15] MEDS: methylPREDNISolone SOD SUCCI 125 MG/2 ML VIAL IV SCH ×4 (06:06→23:14)
[2019-09-15] MEDS: INSULIN ASPART (NovoLOG) 100 UNIT/ML VIAL SQ SCH ×4 (06:07→21:50)
[2019-09-15] MEDS: glipiZIDE 5 MG TAB PO SCH ×3 (06:07→17:59)
[2019-09-15 07:13] LABS: Basophils % (A) 0 %; Eosinophils % (A) 0 %; HCT 46.2 % (39.0-53.0); HGB 15.2 gm/dL (13.0-17.5); Lymphocytes # (A) 0.9 k/uL (1.0-4.8); Lymphocytes % (A) 8 %; MCH 28.6 pg (25.0-35.0); MCHC 32.9 g/dL (31.0-37.0); MCV 86.8 fL (80.0-100.0); Mean Platelet Volume 6.9; Monocytes # (A) 0.5 k/uL (0-1.0); Monocytes % (A) 4 %; Neutrophils # (A) 10.1 k/uL (1.3-7.7); Neutrophils % (A) 87 %; Platelet Count 224 k/uL (150-450); RBC 5.33 m/uL (4.30-5.90); RDW 12.8 % (11.5-15.5); WBC 11.6 k/uL (3.8-10.6)
[2019-09-15 07:24] LABS: ALT 18 U/L (4-49); AST 21 U/L (17-59); African American GFR (CKD) >90 (>60 ml/min/1.73 sqM); Alkaline Phosphatase 41 U/L (38-126); Anion Gap 8 mmol/L; Blood Urea Nitrogen 19 mg/dL (9-20); Calcium 7.9 mg/dL (8.4-10.2); Carbon Dioxide 25 mmol/L (22-30); Chloride 100 mmol/L (98-107); Glucose 232 mg/dL (74-99); Non-African American GFR(CKD) >90 (>60 ml/min/1.73 sqM); Potassium 3.6 mmol/L (3.5-5.1); Sodium 133 mmol/L (137-145); Total Bilirubin 1.1 mg/dL (0.2-1.3); Total Protein 5.8 g/dL (6.3-8.2)
[2019-09-15] MEDS: IPRATROPIUM-ALBUTEROL 3 ML NEB INHALATION SCH ×4 (08:09→20:08)
[2019-09-15] MEDS: SYMBICORT 160-4.5 MCG INHALER INHALATION SCH ×2 (08:09→20:08)
[2019-09-15] MEDS: guaiFENesin 600 MG TABLET.ER PO SCH ×2 (09:42→21:51)
[2019-09-15] MEDS: levETIRAcetam 500 MG TAB PO SCH ×2 (09:42→21:51)
[2019-09-15] MEDS: AZITHROMYCIN 500 MG TAB PO SCH (09:42)
[2019-09-15] MEDS: DILTIAZEM ORAL 30 MG TAB PO SCH (09:42)
[2019-09-15] MEDS: FAMOTIDINE 20 MG TAB PO SCH (09:42)
[2019-09-15] MEDS: FUROSEMIDE 20 MG TAB PO SCH (09:42)
[2019-09-15] MEDS: ASCORBIC ACID 500 MG TAB PO SCH (09:42)
[2019-09-15] MEDS: MULTIVITAMINS, THERA 1 EACH TAB PO SCH (09:42)
[2019-09-15] MEDS: APIXABAN 2.5 MG TABLET PO SCH ×2 (09:42→21:51)
[2019-09-15] MEDS: METOPROLOL SUCCINATE (ER) 100 MG TAB.ER.24H PO SCH (09:42)
[2019-09-15] MEDS: PANTOPRAZOLE 40 MG TABLET PO SCH (09:42)
[2019-09-15] MEDS: METHIMAZOLE 5 MG TAB PO SCH (09:42)
[2019-09-15] MEDS: CLOPIDOGREL 75 MG TAB PO SCH (09:42)
[2019-09-15] MEDS: POTASSIUM CHLORIDE ER 20 MEQ TAB.ER PO SCH (09:42)
--- NOTE | 2019-09-15 11:03 | P.PN ---
Subjective Progress Note Date: 09/15/19 This is a 79-year-old male patient who presented with complaints of increased shortness of breath and wheezing. Patient was recently admitted and discharged last week. Patient reports that he did feel much improved but then started to progressively get worse over the past couple days. Patient states he was very eager to go home in order to see his who is at [facility]. Patient does have past medical history of asthma, coronary artery disease, COPD, CVA, diabetes mellitus, hyperlipidemia, hypertension, myocardial infarction, osteoarthritis, seizure disorder, prostate cancer and previous heart cath with stents. Chest x-ray completed showing mild pleural diaphragmatic lying left lung base unchanged. No acute lung disease. EKG completed showing normal sinus rhythm septal infarct, age undetermined. Pulmonary services have been consulted. Patient started on Solu-Medrol and DuoNeb breathing treatments. Patient also started on azithromycin. Lactic acid elevated at 2. 9 repeat lactic acid 0.9. On examination patient still has significant expiratory wheezing. Patient denies chest pain. Patient denies nausea vomiting or diarrhea. Patient denies any urinary burning or frequency On 09/08/2019 patient is alert and oriented 3. Patient still having significant wheezing. Patient remains on azithromycin and Solu-Medrol. Patient verbalized understanding that he will likely have to stay throughout the weekend. Pulmonary services are following. Patient denies chest pain. Patient denies nausea vomiting or diarrhea. Patient denies any urinary burning or frequency. Patient does state he feels slightly more improved from yesterday. Continue Mucinex. Sputum culture ordered On 09/09/2019 patient is alert and oriented 3. Patient reports some improvement with shortness breath and wheezing. Patient still had significant wheezing to auscultation. Cardiology services have been consulted due to known patient's cardiac history. 2-D echo ordered. Patient ordered for cardiac telemetry. At this time patient denies chest pain. Patient denies nausea vomiting or diarrhea. Patient denies any urinary burning or frequency On 09/10/2019 patient was seen and examined on the medical floor he is alert and oriented 3 in no apparent distress he is still complaining of cough, shortness of breath, and wheezing. This morning patient developed atrial fibrillation with rapid ventricular response he was evaluated by cardiology and patient will be transferred to telemetry floor and will be started on Cardizem drip otherwise patient denies any symptoms there is no fever or chills no headache or dizziness no chest pain no nausea or vomiting no abdominal pain no diarrhea no burning with urination no frequency or urgency and no hematuria. On 09/11/2019 patient was seen and examined on the medical floor he states he is feeling better he is still having some cough some shortness of breath with activity and wheezing otherwise he denies any complaints there is no fever or chills no headache or dizziness no chest pain no nausea or vomiting no abdominal pain no diarrhea no burning was urination no frequency or urgency and no hematuria On 09/12/2019 patient is alert and oriented 3. Patient states he is feeling improved. Patient still has productive cough and some shortness of breath with activity. Patient remains on Cardizem for control at this time. Cardiology services are following medications to be adjusted. Patient remains on eliquis for anticoagulation. Patient remains on IV Solu-Medrol and azithromycin On 09/13/2019 patient is alert and oriented 3. Patient continuing to improve in regards to respiratory wheezing. Patient maintained on Cardizem for rate control. At this time patient denies chest pain. Patient denies shortness of breath. Patient denies nausea vomiting or diarrhea. Patient denies any urinary burning or frequency On 09/14/2019 patient is alert and oriented 3. Patient's showing slight improvement in regards to wheezing. Continue IV Solu-Medrol and azithromycin per pulmonary services. Patient also remains on Cardizem for rate control. Heart rate is improving. Patient is continuing to get short of breath with activity. Patient denies chest pain. Patient denies nausea vomiting or diarrhea. Patient denies any urinary burning or frequency On 09/15/2019 patient alert and oriented 3. Patient has been taken off Cardizem drip and by mouth Cardizem added per cardiology. She remains on IV Solu-Medrol per pulmonary. At this time patient still has wheezing to auscultation but does report improvement with shortness of breath. Patient denies chest pain. Patient denies nausea vomiting or diarrhea. Patient denies any urinary burning or frequency Objective - Vital Signs Vital signs: Vital Signs Temp 98.2 F 09/15/19 03:00 Pulse 88 09/15/19 08:23 Resp 18 09/15/19 03:00 BP 109/65 09/15/19 03:00 Pulse Ox 92 L 09/15/19 08:11 Intake & Output 09/14/19 09/15/19 09/15/19 18:59 06:59 18:59 Intake Total 840 225 Balance 840 225 Weight 88.5 kg 88.9 kg Intake: Oral 840 225 Other: Voiding Method Toilet Toilet # Voids 1 1 - Exam Head normocephalic Neck supple Lungs diminished bilaterally with significant expiratory wheezing Heart regular rate and rhythm S1-S2, no rub or gallop Abdomen is soft nontender nondistended positive bowel sounds no h epatosplenomegaly Extremities no edema Neuro alert and orientated to 3 - Labs CBC & Chem 7: 09/15/19 05:54 09/15/19 05:54 Labs: Abnormal Lab Results - Last 24 Hours (Table) 09/14/19 09/14/19 09/14/19 Range/Units 11:26 16:23 20:29 WBC (3.8-10.6) k/uL Neutrophils # (1.3-7.7) k/uL Lymphocytes # (1.0-4.8) k/uL Sodium (137-145) mmol/L Creatinine (0.66-1.25) mg/dL Glucose (74-99) mg/dL POC Glucose (mg/dL) 207 H 178 H 234 H (75-99) mg/dL Calcium (8.4-10.2) mg/dL Total Protein (6.3-8.2) g/dL Albumin (3.5-5.0) g/dL 09/15/19 09/15/19 09/15/19 Range/Units 05:28 05:54 05:54 WBC 11.6 H (3.8-10.6) k/uL Neutrophils # 10.1 H (1.3-7.7) k/uL Lymphocytes # 0.9 L (1.0-4.8) k/uL Sodium 133 L (137-145) mmol/L Creatinine 0.59 L (0.66-1.25) mg/dL Glucose 232 H (74-99) mg/dL POC Glucose (mg/dL) 233 H (75-99) mg/dL Calcium 7.9 L (8.4-10.2) mg/dL Total Protein 5.8 L (6.3-8.2) g/dL Albumin 3.0 L (3.5-5.0) g/dL Assessment and Plan Assessment: 1. Increased shortness of breath related to acute COPD exacerbation and acute purulent bronchitis. Chest x-ray completed showing mild pleural diaphragmatic scarring left lung base unchanged. No acute lung disease. Patient started Solu-Medrol azithromycin. Continue DuoNeb breathing treatments. Denies services are following. Patient maintained on Solu-Medrol and azithromycin. 2. Acute purulent tracheobronchitis. Patient started on azithromycin. Pulmonary service following 3. History of chronic atrial fibrillation patient maintained on eliquis 4. History of coronary disease with previous stent placement. Maintained on Plavix 5. History of COPD 6. History of prostate cancer 7. History of diabetes mellitus type 2. sliding scale insulin has been ordered. Hemoglobin A1c 8.2 8. History of seizures. Maintained on Keppra 9. A. fib with rapid ventricular response. Patient currently maintained on Cardizem drip. Cardiology services are consulted medications to be adjusted. Patient maintained on eliquis for anticoagulation 2-D echo completed showing EF of 55-60. Patient has been transitioned to oral Cardizem will continue to monitor heart rate 10. Hyperthyroidism. TSH low at 0.119. Patient was started on Tapazole due to elevated heart rate. Patient also will be arranged to follow with endocrinology outpatient for further management DVT prophylaxis eliquis. GI prophylaxis Pepcid Cardiology and pulmonary service is consulted remains on IV Solu-Medrol and azithromycin I performed an examination of the patient and discussed their management with madison zaman Nurse Practitioner. I have reviewed the Nurse Practitioner's notes and agree with the documented findings and plan of care
[2019-09-15 11:15] LABS: Glucose,Whole Blood 184 mg/dL (75-99)
[2019-09-15] MEDS: ISOSORBIDE MONONITRATE ER 60 MG TAB.ER.24H PO SCH (12:42)
--- NOTE | 2019-09-15 15:06 | P.PN ---
Subjective This is Elizabeth Palomo PA-C dictating a progress note on this patient The patient was interviewed and examined by me as well as by Dr. Lin Case discussed with Dr. Lin and he agrees with the plan of care HPI/interval history Patient is an 79-year-old male with a past medical history of CAD status post angioplasty, hypertension, dyslipidemia, paroxysmal atrial fibrillation, COPD who presented with shortness of breath and cough and was being treated for COPD exacerbation. He went into atrial fibrillation and was on IV Cardizem. We have slowly increased his metoprolol to 200 mg daily for rate control. Yesterday we stopped his Cardizem IV and converted to oral Cardizem 30 mg 3 times a day. His heart rates remained in the low 100s. Blood pressure remains stable. Patient seen and examined resting in bed. He is anxious to go home. Feels his breathing is getting better. Still has a cough. No chest or dizziness. EXAMINATION Patient is afebrile, pulse in the 90s, respirations 18, blood pressure 109/65, oxygen saturation 92% Patient seen and examined resting in bed, appears comfortable, in no acute distress Lungs with expiratory wheezing and rhonchi bilaterally Heart is irregularly irregular No lower extremity edema REVIEW OF LABS, ECG WBC 11.6, hemoglobin 15.2, platelets 224, sodium 133, potassium 3.6, BUN 19, creatinine 0.59 Echocardiogram showed EF 55-60% IMPRESSION / ASSESSMENT: Acute COPD exacerbation and tracheobronchitis Paroxysmal atrial fibrillation, currently in atrial fibrillation with rates in the 90- low 100s, anticoagulated with eliquis Chronic diastolic heart failure, stable from a heart failure symptom standpoint preserved LV systolic function by recent echo History of CAD status post stenting Hypertension, controlled Dyslipidemia Abnormal TSH Plan Stop Cardizem 30 milligrams 3 times a day and switch to long-acting Cardizem 120 mg daily Continue metoprolol 200 mg daily Continue anticoagulation with eliquis Continue Lipitor, Plavix, Lasix, lisinopril, imdur 60 mg daily Objective - Vital Signs Vital signs: Vital Signs Temp 98.2 F 09/15/19 03:00 Pulse 88 09/15/19 08:23 Resp 18 09/15/19 03:00 BP 109/65 09/15/19 03:00 Pulse Ox 92 L 09/15/19 08:11 Intake & Output 09/14/19 09/15/19 09/15/19 18:59 06:59 18:59 Intake Total 840 225 Balance 840 225 Weight 88.5 kg 88.9 kg Intake: Oral 840 225 Other: Voiding Method Toilet Toilet # Voids 1 1 - Labs CBC & Chem 7: 09/15/19 05:54 09/15/19 05:54 Labs: Abnormal Lab Results - Last 24 Hours (Table) 09/14/19 09/14/19 09/14/19 Range/Units 11:26 16:23 20:29 WBC (3.8-10.6) k/uL Neutrophils # (1.3-7.7) k/uL Lymphocytes # (1.0-4.8) k/uL Sodium (137-145) mmol/L Creatinine (0.66-1.25) mg/dL Glucose (74-99) mg/dL POC Glucose (mg/dL) 207 H 178 H 234 H (75-99) mg/dL Calcium (8.4-10.2) mg/dL Total Protein (6.3-8.2) g/dL Albumin (3.5-5.0) g/dL 09/15/19 09/15/19 09/15/19 Range/Units 05:28 05:54 05:54 WBC 11.6 H (3.8-10.6) k/uL Neutrophils # 10.1 H (1.3-7.7) k/uL Lymphocytes # 0.9 L (1.0-4.8) k/uL Sodium 133 L (137-145) mmol/L Creatinine 0.59 L (0.66-1.25) mg/dL Glucose 232 H (74-99) mg/dL POC Glucose (mg/dL) 233 H (75-99) mg/dL Calcium 7.9 L (8.4-10.2) mg/dL Total Protein 5.8 L (6.3-8.2) g/dL Albumin 3.0 L (3.5-5.0) g/dL 09/15/19 Range/Units 11:14 WBC (3.8-10.6) k/uL Neutrophils # (1.3-7.7) k/uL Lymphocytes # (1.0-4.8) k/uL Sodium (137-145) mmol/L Creatinine (0.66-1.25) mg/dL Glucose (74-99) mg/dL POC Glucose (mg/dL) 184 H (75-99) mg/dL Calcium (8.4-10.2) mg/dL Total Protein (6.3-8.2) g/dL Albumin (3.5-5.0) g/dL
--- NOTE | 2019-09-15 15:09 | P.PN ---
Subjective Progress Note Date: 09/15/19 Principal diagnosis: Acute COPD exacerbation Purulent tracheobronchitis Chronic atrial fibrillation History of coronary artery disease stent placement Obstructive sleep apnea Prostate cancer 09/15/2019, patient seen eval examined during the rounds labs reviewed medications reviewed patient is still have a problem with shortness of breath, off of Cardizem drip now currently being switched to oral, remains on IV steroids intermittent wheezing still present which congestion 09/14/2019, patient seen eval examined during the rounds labs reviewed medications reviewed care plan discussed, respiratory status is slightly better not wheezing anymore but during deep breathing exercises and coughing patient does have evidence of wheezing in the airway would recommend to continue current plan of care for another 24-48 hours 09/13/2019, patient seen and examined remains and evaluated, and ongoing cough congestion would recommend to continue plan of care 09/12/2019, patient seen eval examined during the rounds labs reviewed medications reviewed care plan discussed, patient is still congested still short of breath, still have audible wheezing are present, we'll repeat the chest x-ray 09/10/2019, patient seen eval examined during the rounds of epinephrine and me dications reviewed care plan discussed, overall respiratory status is relatively more stable, but is still have ongoing cough congestion shortness of breath and wheezing, cardiovascular services has been following for A. fib and rapid ventricular response have been placed on Cardizem 09/09/2019, patient seen eval examined during the rounds labs reviewed medications reviewed care plan discussed with the patient at length still have ongoing wheezing cough and congestion is present, sputum cultures are pending, patient has been evaluated by cardiovascular services for diastolic heart failure, computed to be on antibiotics breathing treatment and steroids 09/08/2019, patient seen and evaluated examined during the rounds labs reviewed medications reviewed care plan discussed with the patient is still have ongoing intermittent cough congestion shortness of breath on continue current course of treatment with IV steroids antibiotics and breathing treatments O follow clinical course closely, care plan discussed with the primary service at length This is a 79-year-old with end-stage severe COPD emphysema also has a problem with obstructive sleep apnea patient was recently in the hospital improved and discharged but in the last one today having increasing shortness of breath has been wheezing cough and shortness of breath decided to come into the hospital patient was evaluated in the emergency department chest x-ray continued to show mild left basal scarring or new active infiltrate identified lab status stable white cell count normal however lactic acid was elevated 2.9 with rehydration improved 0.9, patient has been admitted into hospital for IV steroids breathing treatments Objective - Vital Signs Vital signs: Vital Signs Temp 97.6 F 09/15/19 12:00 Pulse 126 H 09/15/19 12:19 Resp 18 09/15/19 12:00 BP 113/62 09/15/19 12:00 Pulse Ox 94 L 09/15/19 12:00 Intake & Output 09/14/19 09/15/19 09/15/19 18:59 06:59 18:59 Intake Total 840 345 Balance 840 345 Weight 88.5 kg 88.9 kg Intake: Oral 840 345 Other: Voiding Method Toilet Toilet Toilet # Voids 1 1 - Exam - Constitutional General appearance: average body habitus, cooperative, disheveled, mild distress - EENT Eyes: EOMI, PERRLA, dentition normal, normal appearance ENT: normal oropharynx Ears: bilateral: normal - Neck Neck: normal ROM Carotids: bilateral: upstroke normal - Respiratory Respiratory: bilateral: diminished, rhonchi, wheezing, prolonged expiration, negative: CTA, dullness, rales, prolonged inspiration - Cardiovascular Rhythm: regular Heart sounds: normal: S1, S2 - Gastrointestinal General gastrointestinal: normal bowel sounds - Integumentary Integumentary: normal turgor - Neurologic Neurologic: CNII-XII intact - Musculoskeletal Musculoskeletal: gait normal, generalized weakness, strength equal bilaterally - Psychiatric Psychiatric: A&O x's 3, appropriate affect, intact judgment & insight - Labs CBC & Chem 7: 09/15/19 05:54 09/15/19 05:54 Labs: Abnormal Lab Results - Last 24 Hours (Table) 09/14/19 09/14/19 09/15/19 Range/Units 16:23 20:29 05:28 WBC (3.8-10.6) k/uL Neutrophils # (1.3-7.7) k/uL Lymphocytes # (1.0-4.8) k/uL Sodium (137-145) mmol/L Creatinine (0.66-1.25) mg/dL Glucose (74-99) mg/dL POC Glucose (mg/dL) 178 H 234 H 233 H (75-99) mg/dL Calcium (8.4-10.2) mg/dL Total Protein (6.3-8.2) g/dL Albumin (3.5-5.0) g/dL 09/15/19 09/15/19 09/15/19 Range/Units 05:54 05:54 11:14 WBC 11.6 H (3.8-10.6) k/uL Neutrophils # 10.1 H (1.3-7.7) k/uL Lymphocytes # 0.9 L (1.0-4.8) k/uL Sodium 133 L (137-145) mmol/L Creatinine 0.59 L (0.66-1.25) mg/dL Glucose 232 H (74-99) mg/dL POC Glucose (mg/dL) 184 H (75-99) mg/dL Calcium 7.9 L (8.4-10.2) mg/dL Total Protein 5.8 L (6.3-8.2) g/dL Albumin 3.0 L (3.5-5.0) g/dL Assessment and Plan Assessment: Acute COPD exacerbation Purulent tracheobronchitis Acute on Chronic atrial fibrillation History of coronary artery disease stent placement Obstructive sleep apnea Chronic diastolic heart failure Prostate cancer Plan: IV steroids, can be changed to oral at the time of discharge Breathing treatments Continue home medications Broad-spectrum antibiotics Sputum studies if able to obtain Further recommendations pending plan of care as per clinical response of the patient Time with Patient: Greater than 30
[2019-09-15 16:47] LABS: Glucose,Whole Blood 187 mg/dL (75-99)
[2019-09-15] MEDS: LISINOPRIL 2.5 MG TAB PO SCH (17:59)
[2019-09-15 20:27] LABS: Glucose,Whole Blood 315 mg/dL (75-99)
[2019-09-15] MEDS ORDERED: INSULIN ASPART (NovoLOG) 100 UNIT/ML VIAL SQ ONE (20:48)
[2019-09-15] MEDS: MONTELUKAST 10 MG TAB PO SCH (21:51)
[2019-09-15] MEDS: DILTIAZEM CD 120 MG CAP.ER.24H PO SCH (21:51)
[2019-09-15] MEDS: ATORVASTATIN 10 MG TAB PO SCH (21:51)
[2019-09-15] MEDS: diphenhydrAMINE 25 MG CAP PO SCH (21:51)
[2019-09-16 05:53] LABS: Glucose,Whole Blood 201 mg/dL (75-99)
[2019-09-16] MEDS: PANTOPRAZOLE 40 MG TABLET PO SCH (06:14)
[2019-09-16] MEDS: methylPREDNISolone SOD SUCCI 125 MG/2 ML VIAL IV SCH ×4 (06:15→22:57)
[2019-09-16] MEDS: glipiZIDE 5 MG TAB PO SCH ×3 (06:15→17:34)
[2019-09-16] MEDS: INSULIN ASPART (NovoLOG) 100 UNIT/ML VIAL SQ SCH ×4 (06:15→21:20)
[2019-09-16 06:54] LABS: ALT 19 U/L (4-49); AST 18 U/L (17-59); African American GFR (CKD) >90 (>60 ml/min/1.73 sqM); Alkaline Phosphatase 49 U/L (38-126); Anion Gap 6 mmol/L; Blood Urea Nitrogen 19 mg/dL (9-20); Calcium 8.1 mg/dL (8.4-10.2); Carbon Dioxide 33 mmol/L (22-30); Chloride 97 mmol/L (98-107); Glucose 201 mg/dL (74-99); Non-African American GFR(CKD) 89 (>60 ml/min/1.73 sqM); Potassium 3.5 mmol/L (3.5-5.1); Sodium 136 mmol/L (137-145); Total Protein 5.7 g/dL (6.3-8.2)
[2019-09-16 06:56] LABS: Basophils % (A) 1 %; Eosinophils % (A) 0 %; HCT 47.6 % (39.0-53.0); HGB 15.8 gm/dL (13.0-17.5); Lymphocytes # (A) 0.6 k/uL (1.0-4.8); Lymphocytes % (A) 7 %; MCH 28.9 pg (25.0-35.0); MCHC 33.1 g/dL (31.0-37.0); MCV 87.4 fL (80.0-100.0); Mean Platelet Volume 7.3; Monocytes # (A) 0.5 k/uL (0-1.0); Monocytes % (A) 5 %; Neutrophils # (A) 7.7 k/uL (1.3-7.7); Neutrophils % (A) 87 %; Platelet Count 227 k/uL (150-450); RBC 5.45 m/uL (4.30-5.90); RDW 12.6 % (11.5-15.5); WBC 8.8 k/uL (3.8-10.6)
[2019-09-16] MEDS: AZITHROMYCIN 500 MG TAB PO SCH (08:38)
[2019-09-16] MEDS: CLOPIDOGREL 75 MG TAB PO SCH (08:38)
[2019-09-16] MEDS: FUROSEMIDE 20 MG TAB PO SCH (08:38)
[2019-09-16] MEDS: guaiFENesin 600 MG TABLET.ER PO SCH ×2 (08:38→21:20)
[2019-09-16] MEDS: METOPROLOL SUCCINATE (ER) 100 MG TAB.ER.24H PO SCH (08:38)
[2019-09-16] MEDS: METHIMAZOLE 5 MG TAB PO SCH (08:38)
[2019-09-16] MEDS: MULTIVITAMINS, THERA 1 EACH TAB PO SCH (08:38)
[2019-09-16] MEDS: POTASSIUM CHLORIDE ER 20 MEQ TAB.ER PO SCH ×3 (08:38→12:12)
[2019-09-16] MEDS: ASCORBIC ACID 500 MG TAB PO SCH (08:38)
[2019-09-16] MEDS: DILTIAZEM CD 120 MG CAP.ER.24H PO SCH (08:38)
[2019-09-16] MEDS: APIXABAN 2.5 MG TABLET PO SCH ×2 (08:39→21:20)
[2019-09-16] MEDS: levETIRAcetam 500 MG TAB PO SCH ×2 (08:39→21:20)
[2019-09-16] MEDS: FAMOTIDINE 20 MG TAB PO SCH (08:39)
[2019-09-16] MEDS: SYMBICORT 160-4.5 MCG INHALER INHALATION SCH ×2 (08:56→20:02)
[2019-09-16] MEDS: IPRATROPIUM-ALBUTEROL 3 ML NEB INHALATION SCH ×4 (08:56→19:53)
[2019-09-16] MEDS ORDERED: Potassium Replacement Protocol 1 EACH MISC MISCELLANE PRN (09:35)
--- NOTE | 2019-09-16 10:01 | P.PN ---
Subjective Progress Note Date: 09/16/19 This is a 79-year-old male patient who presented with complaints of increased shortness of breath and wheezing. Patient was recently admitted and discharged last week. Patient reports that he did feel much improved but then started to progressively get worse over the past couple days. Patient states he was very eager to go home in order to see his who is at [facility]. Patient does have past medical history of asthma, coronary artery disease, COPD, CVA, diabetes mellitus, hyperlipidemia, hypertension, myocardial infarction, osteoarthritis, seizure disorder, prostate cancer and previous heart cath with stents. Chest x-ray completed showing mild pleural diaphragmatic lying left lung base unchanged. No acute lung disease. EKG completed showing normal sinus rhythm septal infarct, age undetermined. Pulmonary services have been consulted. Patient started on Solu-Medrol and DuoNeb breathing treatments. Patient also started on azithromycin. Lactic acid elevated at 2. 9 repeat lactic acid 0.9. On examination patient still has significant expiratory wheezing. Patient denies chest pain. Patient denies nausea vomiting or diarrhea. Patient denies any urinary burning or frequency On 09/08/2019 patient is alert and oriented 3. Patient still having significant wheezing. Patient remains on azithromycin and Solu-Medrol. Patient verbalized understanding that he will likely have to stay throughout the weekend. Pulmonary services are following. Patient denies chest pain. Patient denies nausea vomiting or diarrhea. Patient denies any urinary burning or frequency. Patient does state he feels slightly more improved from yesterday. Continue Mucinex. Sputum culture ordered On 09/09/2019 patient is alert and oriented 3. Patient reports some improvement with shortness breath and wheezing. Patient still had significant wheezing to auscultation. Cardiology services have been consulted due to known patient's cardiac history. 2-D echo ordered. Patient ordered for cardiac telemetry. At this time patient denies chest pain. Patient denies nausea vomiting or diarrhea. Patient denies any urinary burning or frequency On 09/10/2019 patient was seen and examined on the medical floor he is alert and oriented 3 in no apparent distress he is still complaining of cough, shortness of breath, and wheezing. This morning patient developed atrial fibrillation with rapid ventricular response he was evaluated by cardiology and patient will be transferred to telemetry floor and will be started on Cardizem drip otherwise patient denies any symptoms there is no fever or chills no headache or dizziness no chest pain no nausea or vomiting no abdominal pain no diarrhea no burning with urination no frequency or urgency and no hematuria. On 09/11/2019 patient was seen and examined on the medical floor he states he is feeling better he is still having some cough some shortness of breath with activity and wheezing otherwise he denies any complaints there is no fever or chills no headache or dizziness no chest pain no nausea or vomiting no abdominal pain no diarrhea no burning was urination no frequency or urgency and no hematuria On 09/12/2019 patient is alert and oriented 3. Patient states he is feeling improved. Patient still has productive cough and some shortness of breath with activity. Patient remains on Cardizem for control at this time. Cardiology services are following medications to be adjusted. Patient remains on eliquis for anticoagulation. Patient remains on IV Solu-Medrol and azithromycin On 09/13/2019 patient is alert and oriented 3. Patient continuing to improve in regards to respiratory wheezing. Patient maintained on Cardizem for rate control. At this time patient denies chest pain. Patient denies shortness of breath. Patient denies nausea vomiting or diarrhea. Patient denies any urinary burning or frequency On 09/14/2019 patient is alert and oriented 3. Patient's showing slight improvement in regards to wheezing. Continue IV Solu-Medrol and azithromycin per pulmonary services. Patient also remains on Cardizem for rate control. Heart rate is improving. Patient is continuing to get short of breath with activity. Patient denies chest pain. Patient denies nausea vomiting or diarrhea. Patient denies any urinary burning or frequency On 09/15/2019 patient alert and oriented 3. Patient has been taken off Cardizem drip and by mouth Cardizem added per cardiology. She remains on IV Solu-Medrol per pulmonary. At this time patient still has wheezing to auscultation but does report improvement with shortness of breath. Patient denies chest pain. Patient denies nausea vomiting or diarrhea. Patient denies any urinary burning or frequency On 09/16/2019 patient alert and oriented 3. Patient has been transitioned to oral Cardizem. Patient still having some wheezy to auscultation and short of breath with activity. Did discuss case with Dr. of the pulmonology does not feel patient is ready for discharge home. Will order repeat chest x-ray to rule out pneumonia. Patient denies any chest pain. Patient has been on room air. Patient denies nausea vomiting or diarrhea. Patient denies any urinary burning or frequency Objective - Vital Signs Vital signs: Vital Signs Temp 97.8 F 09/16/19 08:00 Pulse 108 H 09/16/19 09:09 Resp 20 09/16/19 08:00 BP 121/71 09/16/19 08:00 Pulse Ox 94 L 09/16/19 08:58 Intake & Output 09/15/19 09/16/19 09/16/19 18:59 06:59 18:59 Intake Total 405 480 Balance 405 480 Weight 88.2 kg Intake: Oral 405 480 Other: Voiding Method Toilet Toilet Toilet # Voids 4 - Exam Head normocephalic Neck supple Lungs diminished bilaterally with significant expiratory wheezing Heart regular rate and rhythm S1-S2, no rub or gallop Abdomen is soft nontender nondistended positive bowel sounds no hepatosplenom egaly Extremities no edema Neuro alert and orientated to 3 - Labs CBC & Chem 7: 09/16/19 05:14 09/16/19 05:14 Labs: Abnormal Lab Results - Last 24 Hours (Table) 09/15/19 09/15/19 09/15/19 Range/Units 11:14 16:46 20:19 Lymphocytes # (1.0-4.8) k/uL Sodium (137-145) mmol/L Chloride (98-107) mmol/L Carbon Dioxide (22-30) mmol/L Glucose (74-99) mg/dL POC Glucose (mg/dL) 184 H 187 H 315 H (75-99) mg/dL Calcium (8.4-10.2) mg/dL Total Protein (6.3-8.2) g/dL Albumin (3.5-5.0) g/dL 09/16/19 09/16/19 09/16/19 Range/Units 05:14 05:14 05:52 Lymphocytes # 0.6 L (1.0-4.8) k/uL Sodium 136 L (137-145) mmol/L Chloride 97 L (98-107) mmol/L Carbon Dioxide 33 H (22-30) mmol/L Glucose 201 H (74-99) mg/dL POC Glucose (mg/dL) 201 H (75-99) mg/dL Calcium 8.1 L (8.4-10.2) mg/dL Total Protein 5.7 L (6.3-8.2) g/dL Albumin 3.0 L (3.5-5.0) g/dL Assessment and Plan Assessment: 1. Increased shortness of breath related to acute COPD exacerbation and acute purulent bronchitis. Chest x-ray completed showing mild pleural diaphragmatic scarring left lung base unchanged. No acute lung disease. Patient started Solu-Medrol azithromycin. Continue DuoNeb breathing treatments. Denies services are following. Patient maintained on Solu-Medrol and azithromycin. Her pulmonary patient is having increased wheezing today will order chest x-ray 2. Acute purulent tracheobronchitis. Patient started on azithromycin. Pulmonary service following 3. History of chronic atrial fibrillation patient maintained on eliquis 4. History of coronary disease with previous stent placement. Maintained on Plavix 5. History of COPD 6. History of prostate cancer 7. History of diabetes mellitus type 2. sliding scale insulin has been ordered. Hemoglobin A1c 8.2 8. History of seizures. Maintained on Keppra 9. A. fib with rapid ventricular response. Patient currently maintained on Cardizem drip. Cardiology services are consulted medications to be adjusted. Patient maintained on eliquis for anticoagulation 2-D echo completed showing EF of 55-60. Patient has been transitioned to oral Cardizem will continue to monitor heart rate 10. Hyperthyroidism. TSH low at 0.119. Patient was started on Tapazole due to elevated heart rate. Patient also will be arranged to follow with endocrinology outpatient for further management DVT prophylaxis eliquis. GI prophylaxis Pepcid Cardiology and pulmonary service is consulted remains on IV Solu-Medrol and azithromycin I performed an examination of the patient and discussed their management with the Nurse Practitioner. I have reviewed the Nurse Practitioner's notes and agree with the documented findings and plan of care
--- NOTE | 2019-09-16 10:24 | P.PN ---
Subjective Progress Note Date: 09/16/19 Principal diagnosis: Acute COPD exacerbation Purulent tracheobronchitis Chronic atrial fibrillation History of coronary artery disease stent placement Obstructive sleep apnea Prostate cancer 09/16/2019, patient seen eval reexamined during the rounds labs reviewed medications reviewed care plan discussed with the staff primary service at length his still have intermittent episodes of shortness of breath with atrial fibrillation and rapid ventricular response patient has clearly audible wheezing bilaterally get worse with exertion and activity also getting short of breath, prior chest x-ray suggestive of developing pneumonia in the left lower lobe on patient will benefit from computed tomography scan of his chest without contrast to confirm pneumonia 09/15/2019, patient seen eval examined during the rounds labs reviewed medications reviewed patient is still have a problem with shortness of breath, off of Cardizem drip now currently being switched to oral, remains on IV steroids intermittent wheezing still present which congestion 09/14/2019, patient seen eval examined during the rounds labs reviewed medications reviewed care plan discussed, respiratory status is slightly better not wheezing anymore but during deep breathing exercises and coughing patient does have evidence of wheezing in the airway would recommend to continue current plan of care for another 24-48 hours 09/13/2019, patient seen and examined remains and evaluated, and ongoing cough congestion would recommend to continue plan of care 09/12/2019, patient seen eval examined during the rounds labs reviewed medications reviewed care plan discussed, patient is still congested still short of breath, still have audible wheezing are present, we'll repeat the chest x-ray 09/10/2019, patient seen eval examined during the rounds of epinephrine and medications reviewed care plan discussed, overall respiratory status is relatively more stable, but is still have ongoing cough congestion shortness of breath and wheezing, cardiovascular services has been following for A. fib and rapid ventricular response have been placed on Cardizem 09/09/2019, patient seen eval examined during the rounds labs reviewed medications reviewed care plan discussed with the patient at length still have ongoing wheezing cough and congestion is present, sputum cultures are pending, patient has been evaluated by cardiovascular services for diastolic heart failure, computed to be on antibiotics breathing treatment and steroids 09/08/2019, patient seen and evaluated examined during the rounds labs reviewed medications reviewed care plan discussed with the patient is still have ongoing intermittent cough congestion shortness of breath on continue current course of treatment with IV steroids antibiotics and breathing treatments O follow clinical course closely, care plan discussed with the primary service at length This is a 79-year-old with end-stage severe COPD emphysema also has a problem with obstructive sleep apnea patient was recently in the hospital improved and discharged but in the last one today having increasing shortness of breath has been wheezing cough and shortness of breath decided to come into the hospital patient was evaluated in the emergency department chest x-ray continued to show mild left basal scarring or new active infiltrate identified lab status stable white cell count normal however lactic acid was elevated 2.9 with rehydration improved 0.9, patient has been admitted into hospital for IV steroids breathing treatments Objective - Vital Signs Vital signs: Vital Signs Temp 97.8 F 09/16/19 08:00 Pulse 108 H 09/16/19 09:09 Resp 20 09/16/19 08:00 BP 121/71 09/16/19 08:00 Pulse Ox 94 L 09/16/19 08:58 Intake & Output 09/15/19 09/16/19 09/16/19 18:59 06:59 18:59 Intake Total 405 480 Balance 405 480 Weight 88.2 kg Intake: Oral 405 480 Other: Voiding Method Toilet Toilet Toilet # Voids 4 - Exam - Constitutional General appearance: average body habitus, cooperative, disheveled, mild distress - EENT Eyes: EOMI, PERRLA, dentition normal, normal appearance ENT: normal oropharynx Ears: bilateral: normal - Neck Neck: normal ROM Carotids: bilateral: upstroke normal - Respiratory Respiratory: bilateral: diminished, rhonchi, wheezing, prolonged expiration, negative: CTA, dullness, rales, prolonged inspiration - Cardiovascular Rhythm: regular Heart sounds: normal: S1, S2 - Gastrointestinal General gastrointestinal: normal bowel sounds - Integumentary Integumentary: normal turgor - Neurologic Neurologic: CNII-XII intact - Musculoskeletal Musculoskeletal: gait normal, generalized weakness, strength equal bilaterally - Psychiatric Psychiatric: A&O x's 3, appropriate affect, intact judgment & insight - Labs CBC & Chem 7: 09/16/19 05:14 09/16/19 05:14 Labs: Abnormal Lab Results - Last 24 Hours (Table) 09/15/19 09/15/19 09/15/19 Range/Units 11:14 16:46 20:19 Lymphocytes # (1.0-4.8) k/uL Sodium (137-145) mmol/L Chloride (98-107) mmol/L Carbon Dioxide (22-30) mmol/L Glucose (74-99) mg/dL POC Glucose (mg/dL) 184 H 187 H 315 H (75-99) mg/dL Calcium (8.4-10.2) mg/dL Total Protein (6.3-8.2) g/dL Albumin (3.5-5.0) g/dL 09/16/19 09/16/19 09/16/19 Range/Units 05:14 05:14 05:52 Lymphocytes # 0.6 L (1.0-4.8) k/uL Sodium 136 L (137-145) mmol/L Chloride 97 L (98-107) mmol/L Carbon Dioxide 33 H (22-30) mmol/L Glucose 201 H (74-99) mg/dL POC Glucose (mg/dL) 201 H (75-99) mg/dL Calcium 8.1 L (8.4-10.2) mg/dL Total Protein 5.7 L (6.3-8.2) g/dL Albumin 3.0 L (3.5-5.0) g/dL Assessment and Plan Assessment: Developing left lower lobe pneumonia Acute COPD exacerbation Purulent tracheobronchitis Acute on Chronic atrial fibrillation History of coronary artery disease stent placement Obstructive sleep apnea Chronic diastolic heart failure Prostate cancer Plan: Computed tomography scan of the chest Sputum studies reviewed IV steroids, can be changed to oral at the time of discharge Breathing treatments Continue home medications Broad-spectrum antibiotics Sputum studies if able to obtain Further recommendations pending plan of care as per clinical response of the patient Time with Patient: Greater than 30
--- NOTE | 2019-09-16 11:09 | P.PN ---
Subjective This is Elizabeth Palomo PA-C dictating a progress note on this patient The patient was interviewed and examined by me as well as by Dr. Lin Case discussed with Dr. Lin and he agrees with the plan of care HPI/interval history Patient is an 79-year-old male with a past medical history of CAD status post angioplasty, hypertension, dyslipidemia, paroxysmal atrial fibrillation, COPD who presented with shortness of breath and cough and was being treated for COPD exacerbation. He went into atrial fibrillation and was on IV Cardizem. We have slowly increased his metoprolol to 200 mg daily for rate control. Yesterday we switch from Cardizem 30 mg 3 times a day to long-acting Cardizem 120 mg daily at night. His heart rates remained in the 90s to low 100s. Blood pressure remains stable. Patient seen and examined resting in bed. He is upset because he feels he is ready to go home. He feels like his breathing has improved. Denies any chest pain, dizziness or palpitations. States he has been walking the hallways without any problems. EXAMINATION Temperature 97.8F, pulse is 100, respirations 20, blood pressure 121/71, oxygen saturation 94% Patient seen and examined resting in bed, appears comfortable, in no acute di stress Lungs with few scattered rhonchi bilaterally Heart is irregularly irregular No lower extremity edema REVIEW OF LABS, ECG WBC 8.8, hemoglobin 15.8, platelets 227, potassium 3.5, creatinine 0.7, BUN 19 Echocardiogram showed EF 55-60% IMPRESSION / ASSESSMENT: Acute COPD exacerbation and tracheobronchitis Paroxysmal atrial fibrillation, currently in atrial fibrillation with rates in the 90- low 100s, anticoagulated with eliquis Chronic diastolic heart failure, stable from a heart failure symptom standpoint preserved LV systolic function by recent echo History of CAD status post stenting Hypertension, controlled Dyslipidemia Abnormal TSH Plan Continue long-acting Cardizem 120 mg daily and metoprolol 200 mg daily , would not increase his rate control medications any further Continue anticoagulation with eliquis Continue Lipitor, Plavix, Lasix, lisinopril, imdur 60 mg daily From a cardiology standpoint he is clear to go home on the current medication regimen Objective - Vital Signs Vital signs: Vital Signs Temp 97.8 F 09/16/19 08:00 Pulse 108 H 09/16/19 09:09 Resp 20 09/16/19 08:00 BP 121/71 09/16/19 08:00 Pulse Ox 94 L 09/16/19 08:58 Intake & Output 09/15/19 09/16/19 09/16/19 18:59 06:59 18:59 Intake Total 405 480 Balance 405 480 Weight 88.2 kg Intake: Oral 405 480 Other: Voiding Method Toilet Toilet Toilet # Voids 4 - Labs CBC & Chem 7: 09/16/19 05:14 09/16/19 05:14 Labs: Abnormal Lab Results - Last 24 Hours (Table) 09/15/19 09/15/19 09/15/19 Range/Units 11:14 16:46 20:19 Lymphocytes # (1.0-4.8) k/uL Sodium (137-145) mmol/L Chloride (98-107) mmol/L Carbon Dioxide (22-30) mmol/L Glucose (74-99) mg/dL POC Glucose (mg/dL) 184 H 187 H 315 H (75-99) mg/dL Calcium (8.4-10.2) mg/dL Total Protein (6.3-8.2) g/dL Albumin (3.5-5.0) g/dL 09/16/19 09/16/19 09/16/19 Range/Units 05:14 05:14 05:52 Lymphocytes # 0.6 L (1.0-4.8) k/uL Sodium 136 L (137-145) mmol/L Chloride 97 L (98-107) mmol/L Carbon Dioxide 33 H (22-30) mmol/L Glucose 201 H (74-99) mg/dL POC Glucose (mg/dL) 201 H (75-99) mg/dL Calcium 8.1 L (8.4-10.2) mg/dL Total Protein 5.7 L (6.3-8.2) g/dL Albumin 3.0 L (3.5-5.0) g/dL
[2019-09-16 11:42] LABS: Glucose,Whole Blood 215 mg/dL (75-99)
[2019-09-16] MEDS: ISOSORBIDE MONONITRATE ER 60 MG TAB.ER.24H PO SCH (12:10)
--- NOTE | 2019-09-16 12:17 | CT ---
EXAMINATION TYPE: CT chest wo con DATE OF EXAM: 09/16/2019 COMPARISON: 06/28/2018 HISTORY: Pneumonia CT DLP: [address] of the chest was performed with lung and mediastinal window settings submitted. The la ck of contrast limits evaluation of the vascular, mediastinal and parenchymal structures including th e upper abdomen. LUNGS: The lungs are clear and free of infiltrate. No atelectasis. No pulmonary nodule or mass is de tected. No pleural effusion. No CT evidence of interstitial lung disease. Chronic left lower lobe p leural-parenchymal thickening without focal infiltrate. MEDIASTINUM/BRENT: Thoracic aorta is of normal caliber with limited evaluation given lack of contrast . The heart is not enlarged. No evidence for mediastinal mass. No lymph nodes greater than 1cm. UPPER ABDOMEN: No significant abnormality is seen. OTHER: No significant other abnormality. IMPRESSION: 1. Chronic left lower lobe pleural-parenchymal thickening without focal infiltrate.
[2019-09-16 16:31] LABS: Glucose,Whole Blood 264 mg/dL (75-99)
[2019-09-16] MEDS: LISINOPRIL 2.5 MG TAB PO SCH (17:34)
[2019-09-16] MEDS ORDERED: INSULIN ASPART (NovoLOG) 100 UNIT/ML VIAL SQ ONE ×2 (18:05→20:55)
[2019-09-16 20:46] LABS: Glucose,Whole Blood 321 mg/dL (75-99)
[2019-09-16] MEDS: ATORVASTATIN 10 MG TAB PO SCH (21:20)
[2019-09-16] MEDS: MONTELUKAST 10 MG TAB PO SCH (21:20)
[2019-09-16] MEDS: diphenhydrAMINE 25 MG CAP PO SCH (21:20)
[2019-09-17 06:04] LABS: Basophils # (A) 0.1 k/uL (0-0.2); Basophils % (A) 1 %; Eosinophils % (A) 0 %; HCT 47.7 % (39.0-53.0); HGB 15.6 gm/dL (13.0-17.5); Lymphocytes # (A) 0.7 k/uL (1.0-4.8); Lymphocytes % (A) 6 %; MCH 28.4 pg (25.0-35.0); MCHC 32.7 g/dL (31.0-37.0); MCV 86.7 fL (80.0-100.0); Monocytes # (A) 0.5 k/uL (0-1.0); Monocytes % (A) 4 %; Neutrophils # (A) 10.1 k/uL (1.3-7.7); Neutrophils % (A) 88 %; Platelet Count 237 k/uL (150-450); RDW 12.5 % (11.5-15.5); WBC 11.5 k/uL (3.8-10.6)
[2019-09-17 06:04] LABS: Glucose,Whole Blood 222 mg/dL (75-99)
[2019-09-17] MEDS: methylPREDNISolone SOD SUCCI 125 MG/2 ML VIAL IV SCH ×4 (06:08→23:02)
[2019-09-17] MEDS: INSULIN ASPART (NovoLOG) 100 UNIT/ML VIAL SQ SCH ×4 (06:08→20:44)
[2019-09-17] MEDS: glipiZIDE 5 MG TAB PO SCH ×3 (06:08→17:09)
[2019-09-17 06:16] LABS: ALT 20 U/L (4-49); AST 20 U/L (17-59); African American GFR (CKD) >90 (>60 ml/min/1.73 sqM); Alkaline Phosphatase 45 U/L (38-126); Anion Gap 5 mmol/L; Blood Urea Nitrogen 23 mg/dL (9-20); Calcium 8.1 mg/dL (8.4-10.2); Carbon Dioxide 31 mmol/L (22-30); Chloride 98 mmol/L (98-107); Glucose 217 mg/dL (74-99); Non-African American GFR(CKD) 87 (>60 ml/min/1.73 sqM); Potassium 4.1 mmol/L (3.5-5.1); Sodium 134 mmol/L (137-145); Total Protein 5.7 g/dL (6.3-8.2)
[2019-09-17] MEDS: IPRATROPIUM-ALBUTEROL 3 ML NEB INHALATION SCH ×4 (07:19→20:26)
[2019-09-17] MEDS: SYMBICORT 160-4.5 MCG INHALER INHALATION SCH ×2 (07:20→20:26)
[2019-09-17] MEDS: FAMOTIDINE 20 MG TAB PO SCH (07:49)
[2019-09-17] MEDS: METHIMAZOLE 5 MG TAB PO SCH (07:49)
[2019-09-17] MEDS: APIXABAN 2.5 MG TABLET PO SCH ×2 (07:50→20:44)
[2019-09-17] MEDS: CLOPIDOGREL 75 MG TAB PO SCH (07:50)
[2019-09-17] MEDS: PANTOPRAZOLE 40 MG TABLET PO SCH (07:50)
[2019-09-17] MEDS: ASCORBIC ACID 500 MG TAB PO SCH (07:50)
[2019-09-17] MEDS: POTASSIUM CHLORIDE ER 20 MEQ TAB.ER PO SCH (07:50)
[2019-09-17] MEDS: AZITHROMYCIN 500 MG TAB PO SCH (07:50)
[2019-09-17] MEDS: MULTIVITAMINS, THERA 1 EACH TAB PO SCH (07:50)
[2019-09-17] MEDS: DILTIAZEM CD 120 MG CAP.ER.24H PO SCH (07:50)
[2019-09-17] MEDS: guaiFENesin 600 MG TABLET.ER PO SCH ×2 (07:50→20:44)
[2019-09-17] MEDS: FUROSEMIDE 20 MG TAB PO SCH (07:50)
[2019-09-17] MEDS: METOPROLOL SUCCINATE (ER) 100 MG TAB.ER.24H PO SCH (07:50)
[2019-09-17] MEDS: levETIRAcetam 500 MG TAB PO SCH ×2 (07:50→20:44)
[2019-09-17 11:31] LABS: Glucose,Whole Blood 219 mg/dL (75-99)
[2019-09-17] MEDS: ISOSORBIDE MONONITRATE ER 60 MG TAB.ER.24H PO SCH (11:59)
--- NOTE | 2019-09-17 12:58 | PN ---
PROGRESS NOTE DATE OF SERVICE: 09/17/2019 This patient has been hemodynamically stable. He is less short of breath and is almost back to his baseline. PHYSICAL EXAMINATION: Vitals are stable. He is afebrile. His chest reveals expiratory wheeze on end- expiration. Cardiovascular system is in S1, S2. Abdomen is soft. There is trace pedal edema. Labs and medications were reviewed. IMPRESSION AT THIS TIME: 1. Chronic obstructive pulmonary disease with acute exacerbation. 2. Cardiac arrhythmia. 3. Medical debility. I agree with possible discharge planning on tapering dose of steroids, bronchodilators and medications per Cardiology. His prognosis is fair. MMODL / IJN: [id number] /
--- NOTE | 2019-09-17 15:46 | P.PN ---
Subjective Progress Note Date: 09/17/19 Patient is an 79-year-old male with a past medical history of CAD status post angioplasty, hypertension, dyslipidemia, paroxysmal atrial fibrillation, COPD who presented with shortness of breath and cough and was being treated for COPD exacerbation. He went into atrial fibrillation and was on IV Cardizem. We have slowly increased his metoprolol to 200 mg daily for rate control. Yesterday we switch from Cardizem 30 mg 3 times a day to long-acting Cardizem 120 mg daily at night. His heart rates remained in the 90s to low 100s. Blood pressure remains stable. Patient seen and examined resting in bed. He is upset because he feels he is ready to go home. He feels like his breathing has improved. Denies any chest pain, dizziness or palpitations. States he has been walking the hallways without any problems. Patient seems to be feeling better and wants to be discharged home. He does have mild expiratory wheezes. His heart rate is between 80 to 100. Patient could be discharged home on current medical therapy. Follow up as an outpatient Objective - Vital Signs Vital signs: Vital Signs Temp 97.7 F 09/17/19 07:54 Pulse 83 09/17/19 15:09 Resp 18 09/17/19 15:09 BP 101/61 09/17/19 15:09 Pulse Ox 94 L 09/17/19 15:09 Intake & Output 09/16/19 09/17/19 09/17/19 18:59 06:59 18:59 Intake Total 720 720 Balance 720 720 Weight 88.7 kg Intake: Oral 720 720 Other: Voiding Method Toilet Toilet # Voids 2 2 - Exam GENERAL EXAM: Patient is alert and oriented and doesn't appear to be in any acute distress HEENT: Normocephalic. Normal reaction of pupils, equal size, normal range of extraocular motion. No erythema or exudates in the throat. NECK: No masses, no nuchal rigidity. CHEST: No chest wall deformity. LUNGS: Expiratory wheezes HEART: S1 and S2 normal. Irregular and slightly tachycardic ABDOMEN: No hepatosplenomegaly, normal bowel sounds, no guarding or rigidity. SKIN: No rashes CENTRAL NERVOUS SYSTEM: No focal deficits. EXTREMITIES: No cyanosis, clubbing or edema. - Labs CBC & Chem 7: 09/17/19 05:11 09/17/19 05:11 Labs: Abnormal Lab Results - Last 24 Hours (Table) 09/16/19 09/16/19 09/17/19 Range/Units 16:30 20:45 05:11 WBC 11.5 H (3.8-10.6) k/uL Neutrophils # 10.1 H (1.3-7.7) k/uL Lymphocytes # 0.7 L (1.0-4.8) k/uL Sodium (137-145) mmol/L Carbon Dioxide (22-30) mmol/L BUN (9-20) mg/dL Glucose (74-99) mg/dL POC Glucose (mg/dL) 264 H 321 H (75-99) mg/dL Calcium (8.4-10.2) mg/dL Total Protein (6.3-8.2) g/dL Albumin (3.5-5.0) g/dL 09/17/19 09/17/19 09/17/19 Range/Units 05:11 06:01 11:29 WBC (3.8-10.6) k/uL Neutrophils # (1.3-7.7) k/uL Lymphocytes # (1.0-4.8) k/uL Sodium 134 L (137-145) mmol/L Carbon Dioxide 31 H (22-30) mmol/L BUN 23 H (9-20) mg/dL Glucose 217 H (74-99) mg/dL POC Glucose (mg/dL) 222 H 219 H (75-99) mg/dL Calcium 8.1 L (8.4-10.2) mg/dL Total Protein 5.7 L (6.3-8.2) g/dL Albumin 3.0 L (3.5-5.0) g/dL Assessment and Plan (1) Atrial fibrillation Current Visit: Yes Status: Acute Code(s): I48.91 - UNSPECIFIED ATRIAL FIBRILLATION SNOMED Code(s): 53372313 (2) Acute exacerbation of chronic obstructive airways disease Current Visit: Yes Status: Acute Code(s): J44.1 - CHRONIC OBSTRUCTIVE PULMONARY DISEASE W (ACUTE) EXACERBATION SNOMED Code(s): 457928667 (3) Diabetes mellitus Current Visit: No Status: Acute Code(s): E11.9 - TYPE 2 DIABETES MELLITUS WITHOUT COMPLICATIONS SNOMED Code(s): 13512026 Plan: Patient could be discharged home from Cardec standpoint. We will continue current dose of beta humble and Cardizem along with anticoagulation. Follow up as an outpatient
--- NOTE | 2019-09-17 16:30 | P.PN ---
Subjective Progress Note Date: 09/17/19 This is a 79-year-old male patient who presented with complaints of increased shortness of breath and wheezing. Patient was recently admitted and discharged last week. Patient reports that he did feel much improved but then started to progressively get worse over the past couple days. Patient states he was very eager to go home in order to see his who is at [facility]. Patient does have past medical history of asthma, coronary artery disease, COPD, CVA, diabetes mellitus, hyperlipidemia, hypertension, myocardial infarction, osteoarthritis, seizure disorder, prostate cancer and previous heart cath with stents. Chest x-ray completed showing mild pleural diaphragmatic lying left lung base unchanged. No acute lung disease. EKG completed showing normal sinus rhythm septal infarct, age undetermined. Pulmonary services have been consulted. Patient started on Solu-Medrol and DuoNeb breathing treatments. Patient also started on azithromycin. Lactic acid elevated at 2. 9 repeat lactic acid 0.9. On examination patient still has significant expiratory wheezing. Patient denies chest pain. Patient denies nausea vomiting or diarrhea. Patient denies any urinary burning or frequency On 09/08/2019 patient is alert and oriented 3. Patient still having significant wheezing. Patient remains on azithromycin and Solu-Medrol. Patient verbalized understanding that he will likely have to stay throughout the weekend. Pulmonary services are following. Patient denies chest pain. Patient denies nausea vomiting or diarrhea. Patient denies any urinary burning or frequency. Patient does state he feels slightly more improved from yesterday. Continue Mucinex. Sputum culture ordered On 09/09/2019 patient is alert and oriented 3. Patient reports some improvement with shortness breath and wheezing. Patient still had significant wheezing to auscultation. Cardiology services have been consulted due to known patient's cardiac history. 2-D echo ordered. Patient ordered for cardiac telemetry. At this time patient denies chest pain. Patient denies nausea vomiting or diarrhea. Patient denies any urinary burning or frequency On 09/10/2019 patient was seen and examined on the medical floor he is alert and oriented 3 in no apparent distress he is still complaining of cough, shortness of breath, and wheezing. This morning patient developed atrial fibrillation with rapid ventricular response he was evaluated by cardiology and patient will be transferred to telemetry floor and will be started on Cardizem drip otherwise patient denies any symptoms there is no fever or chills no headache or dizziness no chest pain no nausea or vomiting no abdominal pain no diarrhea no burning with urination no frequency or urgency and no hematuria. On 09/11/2019 patient was seen and examined on the medical floor he states he is feeling better he is still having some cough some shortness of breath with activity and wheezing otherwise he denies any complaints there is no fever or chills no headache or dizziness no chest pain no nausea or vomiting no abdominal pain no diarrhea no burning was urination no frequency or urgency and no hematuria. On 09/12/2019 patient is alert and oriented 3. Patient states he is feeling improved. Patient still has productive cough and some shortness of breath with activity. Patient remains on Cardizem for control at this time. Cardiology services are following medications to be adjusted. Patient remains on eliquis for anticoagulation. Patient remains on IV Solu-Medrol and azithromycin On 09/13/2019 patient is alert and oriented 3. Patient continuing to improve in regards to respiratory wheezing. Patient maintained on Cardizem for rate control. At this time patient denies chest pain. Patient denies shortness of breath. Patient denies nausea vomiting or diarrhea. Patient denies any urinary burning or frequency On 09/14/2019 patient is alert and oriented 3. Patient's showing slight improvement in regards to wheezing. Continue IV Solu-Medrol and azithromycin per pulmonary services. Patient also remains on Cardizem for rate control. Heart rate is improving. Patient is continuing to get short of breath with activity. Patient denies chest pain. Patient denies nausea vomiting or diarrhea. Patient denies any urinary burning or frequency On 09/15/2019 patient alert and oriented 3. Patient has been taken off Cardizem drip and by mouth Cardizem added per cardiology. She remains on IV Solu-Medrol per pulmonary. At this time patient still has wheezing to auscultation but does report improvement with shortness of breath. Patient denies chest pain. Patient denies nausea vomiting or diarrhea. Patient denies any urinary burning or frequency On 09/16/2019 patient alert and oriented 3. Patient has been transitioned to oral Cardizem. Patient still having some wheezy to auscultation and short of breath with activity. Did discuss case with Dr. of the pulmonology does not feel patient is ready for discharge home. Will order repeat chest x-ray to rule out pneumonia. Patient denies any chest pain. Patient has been on room air. Patient denies nausea vomiting or diarrhea. Patient denies any urinary burning or frequency Objective - Vital Signs Vital signs: Vital Signs Temp 97.7 F 09/17/19 07:54 Pulse 90 09/17/19 16:22 Resp 18 09/17/19 15:09 BP 101/61 09/17/19 15:09 Pulse Ox 94 L 09/17/19 15:09 Intake & Output 09/16/19 09/17/19 09/17/19 18:59 06:59 18:59 Intake Total 720 720 Balance 720 720 Weight 88.7 kg Intake: Oral 720 720 Other: Voiding Method Toilet Toilet # Voids 2 2 - Exam In general patient is alert and oriented 3 in no apparent distress Head normocephalic and atraumatic Neck supple no JVD no goiter Lungs diminished bilaterally with significant expiratory wheezing Heart regular rate and rhythm S1-S2, no rub or gallop Abdomen is soft nontender nondistended positive bowel sounds no hepatosplenomegaly Extremities no edema no cyanosis or clubbing Neuro no gross focal neurological deficit - Labs CBC & Chem 7: 09/17/19 05:11 09/17/19 05:11 Labs: Abnormal Lab Results - Last 24 Hours (Table) 09/16/19 09/16/19 09/17/19 Range/Units 16:30 20:45 05:11 WBC 11.5 H (3.8-10.6) k/uL Neutrophils # 10.1 H (1.3-7.7) k/uL Lymphocytes # 0.7 L (1.0-4.8) k/uL Sodium (137-145) mmol/L Carbon Dioxide (22-30) mmol/L BUN (9-20) mg/dL Glucose (74-99) mg/dL POC Glucose (mg/dL) 264 H 321 H (75-99) mg/dL Calcium (8.4-10.2) mg/dL Total Protein (6.3-8.2) g/dL Albumin (3.5-5.0) g/dL 09/17/19 09/17/19 09/17/19 Range/Units 05:11 06:01 11:29 WBC (3.8-10.6) k/uL Neutrophils # (1.3-7.7) k/uL Lymphocytes # (1.0-4.8) k/uL Sodium 134 L (137-145) mmol/L Carbon Dioxide 31 H (22-30) mmol/L BUN 23 H (9-20) mg/dL Glucose 217 H (74-99) mg/dL POC Glucose (mg/dL) 222 H 219 H (75-99) mg/dL Calcium 8.1 L (8.4-10.2) mg/dL Total Protein 5.7 L (6.3-8.2) g/dL Albumin 3.0 L (3.5-5.0) g/dL Assessment and Plan Plan: 1. Increased shortness of breath related to acute COPD exacerbation and acute purulent bronchitis. Chest x-ray completed showing mild pleural diaphragmatic scarring left lung base unchanged. No acute lung disease. Patient started Solu-Medrol azithromycin. Continue DuoNeb breathing treatments. Denies services are following. Patient maintained on Solu-Medrol and azithromycin. Her pulmonary patient is having increased wheezing today will order chest x-ray 2. Acute purulent tracheobronchitis. Patient started on azithromycin. Pulmonary service following 3. History of chronic atrial fibrillation patient maintained on eliquis 4. History of coronary disease with previous stent placement. Maintained on Plavix 5. History of COPD 6. History of prostate cancer 7. History of diabetes mellitus type 2. sliding scale insulin has been ordered. Hemoglobin A1c 8.2 8. History of seizures. Maintained on Keppra 9. A. fib with rapid ventricular response. Patient currently maintained on Cardizem drip. Cardiology services are consulted medications to be adjusted. Patient maintained on eliquis for anticoagulation 2-D echo completed showing EF of 55-60. Patient has been transitioned to oral Cardizem will continue to monitor heart rate 10. Hyperthyroidism. TSH low at 0.119. Patient was started on Tapazole due to elevated heart rate. Patient also will be arranged to follow with endocrinology outpatient for further management DVT prophylaxis eliquis. GI prophylaxis Pepcid Cardiology and pulmonary service is consulted remains on IV Solu-Medrol and azithromycin
[2019-09-17 16:43] LABS: Glucose,Whole Blood 190 mg/dL (75-99)
[2019-09-17] MEDS: LISINOPRIL 2.5 MG TAB PO SCH (17:09)
[2019-09-17 20:02] LABS: Glucose,Whole Blood 235 mg/dL (75-99)
[2019-09-17] MEDS: ATORVASTATIN 10 MG TAB PO SCH (20:44)
[2019-09-17] MEDS: MONTELUKAST 10 MG TAB PO SCH (20:44)
[2019-09-17] MEDS: diphenhydrAMINE 25 MG CAP PO SCH (20:44)
[2019-09-18 05:49] LABS: Glucose,Whole Blood 222 mg/dL (75-99)
[2019-09-18] MEDS: INSULIN ASPART (NovoLOG) 100 UNIT/ML VIAL SQ SCH ×4 (06:19→22:50)
[2019-09-18] MEDS: glipiZIDE 5 MG TAB PO SCH ×3 (06:19→16:57)
[2019-09-18] MEDS: methylPREDNISolone SOD SUCCI 125 MG/2 ML VIAL IV SCH ×4 (06:19→22:51)
[2019-09-18 06:25] LABS: Basophils % (A) 0 %; Eosinophils % (A) 0 %; HCT 45.6 % (39.0-53.0); HGB 14.8 gm/dL (13.0-17.5); Lymphocytes # (A) 0.7 k/uL (1.0-4.8); Lymphocytes % (A) 7 %; MCHC 32.4 g/dL (31.0-37.0); MCV 86.3 fL (80.0-100.0); Mean Platelet Volume 7.1; Monocytes # (A) 0.4 k/uL (0-1.0); Monocytes % (A) 3 %; Neutrophils # (A) 9.8 k/uL (1.3-7.7); Neutrophils % (A) 90 %; Platelet Count 223 k/uL (150-450); RBC 5.28 m/uL (4.30-5.90); RDW 12.6 % (11.5-15.5)
[2019-09-18 06:34] LABS: ALT 20 U/L (4-49); AST 18 U/L (17-59); African American GFR (CKD) >90 (>60 ml/min/1.73 sqM); Albumin 2.7 g/dL (3.5-5.0); Alkaline Phosphatase 48 U/L (38-126); Anion Gap 5 mmol/L; Blood Urea Nitrogen 18 mg/dL (9-20); Calcium 7.7 mg/dL (8.4-10.2); Carbon Dioxide 30 mmol/L (22-30); Chloride 97 mmol/L (98-107); Glucose 252 mg/dL (74-99); Non-African American GFR(CKD) >90 (>60 ml/min/1.73 sqM); Potassium 3.4 mmol/L (3.5-5.1); Sodium 132 mmol/L (137-145); Total Protein 5.1 g/dL (6.3-8.2)
[2019-09-18] MEDS: SYMBICORT 160-4.5 MCG INHALER INHALATION SCH ×2 (07:31→19:23)
[2019-09-18] MEDS: IPRATROPIUM-ALBUTEROL 3 ML NEB INHALATION SCH ×4 (07:31→19:25)
[2019-09-18] MEDS: METOPROLOL SUCCINATE (ER) 100 MG TAB.ER.24H PO SCH (07:53)
[2019-09-18] MEDS: ASCORBIC ACID 500 MG TAB PO SCH (07:53)
[2019-09-18] MEDS: METHIMAZOLE 5 MG TAB PO SCH (07:53)
[2019-09-18] MEDS: PANTOPRAZOLE 40 MG TABLET PO SCH (07:53)
[2019-09-18] MEDS: DILTIAZEM CD 120 MG CAP.ER.24H PO SCH (07:53)
[2019-09-18] MEDS: POTASSIUM CHLORIDE ER 20 MEQ TAB.ER PO SCH (07:53)
[2019-09-18] MEDS: FUROSEMIDE 20 MG TAB PO SCH (07:53)
[2019-09-18] MEDS: CLOPIDOGREL 75 MG TAB PO SCH (07:53)
[2019-09-18] MEDS: AZITHROMYCIN 500 MG TAB PO SCH (07:54)
[2019-09-18] MEDS: levETIRAcetam 500 MG TAB PO SCH ×2 (07:54→22:49)
[2019-09-18] MEDS: MULTIVITAMINS, THERA 1 EACH TAB PO SCH (07:54)
[2019-09-18] MEDS: APIXABAN 2.5 MG TABLET PO SCH ×2 (07:54→22:49)
[2019-09-18] MEDS: guaiFENesin 600 MG TABLET.ER PO SCH ×2 (07:54→22:49)
--- NOTE | 2019-09-18 09:26 | P.PN ---
Subjective Progress Note Date: 09/18/19 This is a 79-year-old male patient who presented with complaints of increased shortness of breath and wheezing. Patient was recently admitted and discharged last week. Patient reports that he did feel much improved but then started to progressively get worse over the past couple days. Patient states he was very eager to go home in order to see his who is at [facility]. Patient does have past medical history of asthma, coronary artery disease, COPD, CVA, diabetes mellitus, hyperlipidemia, hypertension, myocardial infarction, osteoarthritis, seizure disorder, prostate cancer and previous heart cath with stents. Chest x-ray completed showing mild pleural diaphragmatic lying left lung base unchanged. No acute lung disease. EKG completed showing normal sinus rhythm septal infarct, age undetermined. Pulmonary services have been consulted. Patient started on Solu-Medrol and DuoNeb breathing treatments. Patient also started on azithromycin. Lactic acid elevated at 2. 9 repeat lactic acid 0.9. On examination patient still has significant expiratory wheezing. Patient denies chest pain. Patient denies nausea vomiting or diarrhea. Patient denies any urinary burning or frequency On 09/08/2019 patient is alert and oriented 3. Patient still having significant wheezing. Patient remains on azithromycin and Solu-Medrol. Patient verbalized understanding that he will likely have to stay throughout the weekend. Pulmonary services are following. Patient denies chest pain. Patient denies nausea vomiting or diarrhea. Patient denies any urinary burning or frequency. Patient does state he feels slightly more improved from yesterday. Continue Mucinex. Sputum culture ordered On 09/09/2019 patient is alert and oriented 3. Patient reports some improvement with shortness breath and wheezing. Patient still had significant wheezing to auscultation. Cardiology services have been consulted due to known patient's cardiac history. 2-D echo ordered. Patient ordered for cardiac telemetry. At this time patient denies chest pain. Patient denies nausea vomiting or diarrhea. Patient denies any urinary burning or frequency On 09/10/2019 patient was seen and examined on the medical floor he is alert and oriented 3 in no apparent distress he is still complaining of cough, shortness of breath, and wheezing. This morning patient developed atrial fibrillation with rapid ventricular response he was evaluated by cardiology and patient will be transferred to telemetry floor and will be started on Cardizem drip otherwise patient denies any symptoms there is no fever or chills no headache or dizziness no chest pain no nausea or vomiting no abdominal pain no diarrhea no burning with urination no frequency or urgency and no hematuria. On 09/11/2019 patient was seen and examined on the medical floor he states he is feeling better he is still having some cough some shortness of breath with activity and wheezing otherwise he denies any complaints there is no fever or chills no headache or dizziness no chest pain no nausea or vomiting no abdominal pain no diarrhea no burning was urination no frequency or urgency and no hematuria. On 09/12/2019 patient is alert and oriented 3. Patient states he is feeling improved. Patient still has productive cough and some shortness of breath with activity. Patient remains on Cardizem for control at this time. Cardiology services are following medications to be adjusted. Patient remains on eliquis for anticoagulation. Patient remains on IV Solu-Medrol and azithromycin On 09/13/2019 patient is alert and oriented 3. Patient continuing to improve in regards to respiratory wheezing. Patient maintained on Cardizem for rate control. At this time patient denies chest pain. Patient denies shortness of breath. Patient denies nausea vomiting or diarrhea. Patient denies any urinary burning or frequency On 09/14/2019 patient is alert and oriented 3. Patient's showing slight improvement in regards to wheezing. Continue IV Solu-Medrol and azithromycin per pulmonary services. Patient also remains on Cardizem for rate control. Heart rate is improving. Patient is continuing to get short of breath with activity. Patient denies chest pain. Patient denies nausea vomiting or diarrhea. Patient denies any urinary burning or frequency On 09/15/2019 patient alert and oriented 3. Patient has been taken off Cardizem drip and by mouth Cardizem added per cardiology. She remains on IV Solu-Medrol per pulmonary. At this time patient still has wheezing to auscultation but does report improvement with shortness of breath. Patient denies chest pain. Patient denies nausea vomiting or diarrhea. Patient denies any urinary burning or frequency On 09/16/2019 patient alert and oriented 3. Patient has been transitioned to oral Cardizem. Patient still having some wheezy to auscultation and short of breath with activity. Did discuss case with Dr. of the pulmonology does not feel patient is ready for discharge home. Will order repeat chest x-ray to rule out pneumonia. Patient denies any chest pain. Patient has been on room air. Patient denies nausea vomiting or diarrhea. Patient denies any urinary burning or frequency On 09/17/2019 patient is alert and oriented 3 in no apparent distress he is still complaining of cough and shortness of breath otherwise he denies any complaints there is no fever or chills no headache or dizziness no chest pain no nausea or vomiting no abdominal pain no diarrhea no burning with urination no frequency or urgency and no hematuria. On 09/18/2019 patient was seen and examined on the medical floor he is alert and oriented 3 in no apparent distress he is still complaining of cough and shortness of breath there is no chest pain he is ambulating without any difficulty there is no fever or chills no headache or dizziness no nausea or vomiting no abdominal pain no diarrhea and no urinary symptoms Objective - Vital Signs Vital signs: Vital Signs Temp 97.7 F 09/18/19 07:49 Pulse 90 09/18/19 07:51 Resp 18 09/18/19 07:56 BP 106/67 09/18/19 07:49 Pulse Ox 96 09/18/19 07:49 Intake & Output 09/17/19 09/18/19 09/18/19 18:59 06:59 18:59 Intake Total 1260 Balance 1260 Weight 88.8 kg Intake: Oral 1260 Other: Voiding Method Toilet # Voids 2 - Exam In general patient is alert and oriented 3 in no apparent distress Head normocephalic and atraumatic Neck supple no JVD no goiter Lungs diminished bilaterally with significant expiratory wheezing Heart regular rate and rhythm S1-S2, no rub or gallop Abdomen is soft nontender nondistended positive bowel sounds no hepatosplenome sterling Extremities no edema no cyanosis or clubbing Neuro no gross focal neurological deficit - Labs CBC & Chem 7: 09/18/19 05:20 09/18/19 05:20 Labs: Abnormal Lab Results - Last 24 Hours (Table) 09/17/19 09/17/19 09/17/19 Range/Units 11:29 16:42 20:01 WBC (3.8-10.6) k/uL Neutrophils # (1.3-7.7) k/uL Lymphocytes # (1.0-4.8) k/uL Sodium (137-145) mmol/L Potassium (3.5-5.1) mmol/L Chloride (98-107) mmol/L Glucose (74-99) mg/dL POC Glucose (mg/dL) 219 H 190 H 235 H (75-99) mg/dL Calcium (8.4-10.2) mg/dL Total Protein (6.3-8.2) g/dL Albumin (3.5-5.0) g/dL 09/18/19 09/18/19 09/18/19 Range/Units 05:20 05:20 05:48 WBC 11.0 H (3.8-10.6) k/uL Neutrophils # 9.8 H (1.3-7.7) k/uL Lymphocytes # 0.7 L (1.0-4.8) k/uL Sodium 132 L (137-145) mmol/L Potassium 3.4 L (3.5-5.1) mmol/L Chloride 97 L (98-107) mmol/L Glucose 252 H (74-99) mg/dL POC Glucose (mg/dL) 222 H (75-99) mg/dL Calcium 7.7 L (8.4-10.2) mg/dL Total Protein 5.1 L (6.3-8.2) g/dL Albumin 2.7 L (3.5-5.0) g/dL Assessment and Plan Plan: 1. Increased shortness of breath related to acute COPD exacerbation and acute purulent bronchitis. Chest x-ray completed showing mild pleural diaphragmatic scarring left lung base unchanged. No acute lung disease. Patient started Solu-Medrol azithromycin. Continue DuoNeb breathing treatments. Denies services are following. Patient maintained on Solu-Medrol and azithromycin. Her pulmonary patient is having increased wheezing today will order chest x-ray 2. Acute purulent tracheobronchitis. Patient started on azithromycin. Pulmonary service following 3. History of chronic atrial fibrillation patient maintained on eliquis 4. History of coronary disease with previous stent placement. Maintained on Plavix 5. History of COPD 6. History of prostate cancer 7. History of diabetes mellitus type 2. sliding scale insulin has been ordered. Hemoglobin A1c 8.2 8. History of seizures. Maintained on Keppra 9. A. fib with rapid ventricular response. Patient currently maintained on Cardizem drip. Cardiology services are consulted medications to be adjusted. Patient maintained on eliquis for anticoagulation 2-D echo completed showing EF of 55-60. Patient has been transitioned to oral Cardizem will continue to monitor heart rate 10. Hyperthyroidism. TSH low at 0.119. Patient was started on Tapazole due to elevated heart rate. Patient also will be arranged to follow with endoc rinology outpatient for further management DVT prophylaxis eliquis. GI prophylaxis Pepcid Cardiology and pulmonary service is consulted remains on IV Solu-Medrol and azithromycin Continue with current management possible discharge to home in the next 1-2 days awaiting further recommendation from pulmonary
[2019-09-18 11:41] LABS: Glucose,Whole Blood 250 mg/dL (75-99)
[2019-09-18] MEDS: ISOSORBIDE MONONITRATE ER 60 MG TAB.ER.24H PO SCH (11:41)
--- NOTE | 2019-09-18 11:45 | PN ---
PROGRESS NOTE DATE OF SERVICE: 09/18/2019 He was seen again on September2019. He has been hemodynamically stable. He continues to have shortness of breath and had some increase in his wheezing. PHYSICAL EXAMINATION: Vital is stable. He is afebrile. His chest reveals expiratory wheeze. Cardiovascular system reveals an S1, S2. Abdomen is soft. There is no pedal edema. LABS: Reviewed. Medications were reviewed. IMPRESSION: 1. At this time is: 2. Asthma with chronic obstructive pulmonary disease with acute exacerbation. 3. Atrial fibrillation with RVR. Continue him on IV Solu-Medrol 60 mg IV push q.6. Consider oral steroids tomorrow and possible discharge planning depending on how he is doing. Increase his activity level. Continue bronchodilators and aerosolized steroids. His prognosis is fair. MMODL / IJN: [id number] /
--- NOTE | 2019-09-18 16:37 | P.PN ---
Subjective Progress Note Date: 09/18/19 Patient is an 79-year-old male with a past medical history of CAD status post angioplasty, hypertension, dyslipidemia, paroxysmal atrial fibrillation, COPD who presented with shortness of breath and cough and was being treated for COPD exacerbation. He went into atrial fibrillation and was on IV Cardizem. We have slowly increased his metoprolol to 200 mg daily for rate control. Yesterday we switch from Cardizem 30 mg 3 times a day to long-acting Cardizem 120 mg daily at night. His heart rates remained in the 90s to low 100s. Blood pressure remains stable. Patient seen and examined resting in bed. He is upset because he feels he is ready to go home. He feels like his breathing has improved. Denies any chest pain, dizziness or palpitations. States he has been walking the hallways without any problems. Patient seems to be feeling better and wants to be discharged home. He does have mild expiratory wheezes. His heart rate is between 80 to 100. Patient could be discharged home on current medical therapy. Follow up as an outpatient. 09/18/2019: This patient with history of COPD, coronary artery disease, hypertension and dyslipidemia is admitted with exacerbation of COPD. Patient also has atrial fibrillation with rapid ventricular response. Heart patient is on high dose of metoprolol. His heart rate is in the 90s. He is feeling better. His lungs sound better with less wheezing. Patient is on still on steroids. Probably patient could be sutured to by mouth steroids. Possible discharge within next 24 hours Objective - Vital Signs Vital signs: Vital Signs Temp 97.7 F 09/18/19 15:29 Pulse 92 09/18/19 15:29 Resp 18 09/18/19 15:49 BP 105/70 09/18/19 15:29 Pulse Ox 96 09/18/19 15:29 Intake & Output 09/17/19 09/18/19 09/18/19 18:59 06:59 18:59 Intake Total 1260 480 Balance 1260 480 Weight 88.8 kg Intake: Oral 1260 480 Other: Voiding Method Toilet Toilet # Voids 2 2 - Exam GENERAL EXAM: Patient is alert and oriented and doesn't appear to be in any acute distress HEENT: Normocephalic. Normal reaction of pupils, equal size, normal range of extraocular motion. No erythema or exudates in the throat. NECK: No masses, no nuchal rigidity. CHEST: No chest wall deformity. LUNGS: Less wheezing HEART: S1 and S2 normal. Irregular and slightly tachycardic ABDOMEN: No hepatosplenomegaly, normal bowel sounds, no guarding or rigidity. SKIN: No rashes CENTRAL NERVOUS SYSTEM: No focal deficits. EXTREMITIES: No cyanosis, clubbing or edema. - Labs CBC & Chem 7: 09/18/19 05:20 09/18/19 05:20 Labs: Abnormal Lab Results - Last 24 Hours (Table) 09/17/19 09/17/19 09/18/19 Range/Units 16:42 20:01 05:20 WBC 11.0 H (3.8-10.6) k/uL Neutrophils # 9.8 H (1.3-7.7) k/uL Lymphocytes # 0.7 L (1.0-4.8) k/uL Sodium (137-145) mmol/L Potassium (3.5-5.1) mmol/L Chloride (98-107) mmol/L Glucose (74-99) mg/dL POC Glucose (mg/dL) 190 H 235 H (75-99) mg/dL Calcium (8.4-10.2) mg/dL Total Protein (6.3-8.2) g/dL Albumin (3.5-5.0) g/dL 09/18/19 09/18/19 09/18/19 Range/Units 05:20 05:48 11:23 WBC (3.8-10.6) k/uL Neutrophils # (1.3-7.7) k/uL Lymphocytes # (1.0-4.8) k/uL Sodium 132 L (137-145) mmol/L Potassium 3.4 L (3.5-5.1) mmol/L Chloride 97 L (98-107) mmol/L Glucose 252 H (74-99) mg/dL POC Glucose (mg/dL) 222 H 250 H (75-99) mg/dL Calcium 7.7 L (8.4-10.2) mg/dL Total Protein 5.1 L (6.3-8.2) g/dL Albumin 2.7 L (3.5-5.0) g/dL Assessment and Plan (1) Atrial fibrillation Current Visit: Yes Status: Acute Code(s): I48.91 - UNSPECIFIED ATRIAL FIBRILLATION SNOMED Code(s): 12078040 (2) Acute exacerbation of chronic obstructive airways disease Current Visit: Yes Status: Acute Code(s): J44.1 - CHRONIC OBSTRUCTIVE PULMONARY DISEASE W (ACUTE) EXACERBATION SNOMED Code(s): 620673604 (3) Diabetes mellitus Current Visit: No Status: Acute Code(s): E11.9 - TYPE 2 DIABETES MELLITUS WITHOUT COMPLICATIONS SNOMED Code(s): 95635995 Plan: Seems to be clinically stable. Heart rate is in the 90s. Stay with current medical therapy
[2019-09-18 16:52] LABS: Glucose,Whole Blood 207 mg/dL (75-99)
[2019-09-18] MEDS: LISINOPRIL 2.5 MG TAB PO SCH (16:57)
[2019-09-18 20:25] LABS: Glucose,Whole Blood 367 mg/dL (75-99)
[2019-09-18] MEDS: diphenhydrAMINE 25 MG CAP PO SCH (22:49)
[2019-09-18] MEDS: ATORVASTATIN 10 MG TAB PO SCH (22:49)
[2019-09-18] MEDS: MONTELUKAST 10 MG TAB PO SCH (22:53)
[2019-09-19 05:56] LABS: Glucose,Whole Blood 195 mg/dL (75-99)
[2019-09-19 06:03] LABS: Basophils % (A) 0 %; Eosinophils % (A) 0 %; HCT 44.8 % (39.0-53.0); HGB 14.6 gm/dL (13.0-17.5); Lymphocytes # (A) 0.8 k/uL (1.0-4.8); Lymphocytes % (A) 5 %; MCH 28.4 pg (25.0-35.0); MCHC 32.6 g/dL (31.0-37.0); Mean Platelet Volume 6.9; Monocytes # (A) 0.8 k/uL (0-1.0); Monocytes % (A) 5 %; Neutrophils # (A) 13.6 k/uL (1.3-7.7); Neutrophils % (A) 88 %; Platelet Count 193 k/uL (150-450); RBC 5.15 m/uL (4.30-5.90); RDW 12.6 % (11.5-15.5); WBC 15.4 k/uL (3.8-10.6)
[2019-09-19 06:13] LABS: ALT 20 U/L (4-49); AST 17 U/L (17-59); African American GFR (CKD) >90 (>60 ml/min/1.73 sqM); Albumin 2.7 g/dL (3.5-5.0); Alkaline Phosphatase 45 U/L (38-126); Anion Gap 4 mmol/L; Blood Urea Nitrogen 18 mg/dL (9-20); Carbon Dioxide 31 mmol/L (22-30); Chloride 98 mmol/L (98-107); Glucose 180 mg/dL (74-99); Non-African American GFR(CKD) 85 (>60 ml/min/1.73 sqM); Potassium 3.7 mmol/L (3.5-5.1); Sodium 133 mmol/L (137-145); Total Bilirubin 0.8 mg/dL (0.2-1.3); Total Protein 5.1 g/dL (6.3-8.2)
[2019-09-19] MEDS: methylPREDNISolone SOD SUCCI 125 MG/2 ML VIAL IV SCH ×2 (06:48→12:08)
[2019-09-19] MEDS: INSULIN ASPART (NovoLOG) 100 UNIT/ML VIAL SQ SCH ×2 (06:49→12:09)
[2019-09-19] MEDS: glipiZIDE 5 MG TAB PO SCH ×2 (06:49→12:08)
[2019-09-19] MEDS: IPRATROPIUM-ALBUTEROL 3 ML NEB INHALATION SCH ×2 (08:34→12:00)
[2019-09-19] MEDS: SYMBICORT 160-4.5 MCG INHALER INHALATION SCH (08:34)
[2019-09-19 08:40] VITALS: TEMP 97.5
[2019-09-19] MEDS: FUROSEMIDE 20 MG TAB PO SCH (08:47)
[2019-09-19] MEDS: DILTIAZEM CD 120 MG CAP.ER.24H PO SCH (08:47)
[2019-09-19] MEDS: ASCORBIC ACID 500 MG TAB PO SCH (08:47)
[2019-09-19] MEDS: AZITHROMYCIN 500 MG TAB PO SCH (08:47)
[2019-09-19] MEDS: APIXABAN 2.5 MG TABLET PO SCH (08:47)
[2019-09-19] MEDS: CLOPIDOGREL 75 MG TAB PO SCH (08:47)
[2019-09-19] MEDS: guaiFENesin 600 MG TABLET.ER PO SCH (08:48)
[2019-09-19] MEDS: MULTIVITAMINS, THERA 1 EACH TAB PO SCH (08:48)
[2019-09-19] MEDS: levETIRAcetam 500 MG TAB PO SCH (08:48)
[2019-09-19] MEDS: METHIMAZOLE 5 MG TAB PO SCH (08:48)
[2019-09-19] MEDS: PANTOPRAZOLE 40 MG TABLET PO SCH (08:48)
[2019-09-19] MEDS: POTASSIUM CHLORIDE ER 20 MEQ TAB.ER PO SCH (08:48)
[2019-09-19] MEDS: METOPROLOL SUCCINATE (ER) 100 MG TAB.ER.24H PO SCH (08:48)
--- NOTE | 2019-09-19 09:55 | P.PN ---
Subjective Progress Note Date: 09/19/19 Patient is an 79-year-old male with a past medical history of CAD status post angioplasty, hypertension, dyslipidemia, paroxysmal atrial fibrillation, COPD who presented with shortness of breath and cough and was being treated for COPD exacerbation. He went into atrial fibrillation and was on IV Cardizem. We have slowly increased his metoprolol for rate control. I pressure this morning 132/70, heart rate of 90, 99% on room air. White blood cell count 15.4, hemoglobin 14.6, platelet count 193. Sodium 133, potassium 3.7, BUN 18, creatinine 0.7. Objective - Vital Signs Vital signs: Vital Signs Temp 97.5 F L 09/19/19 08:00 Pulse 110 H 09/19/19 08:43 Resp 18 09/19/19 08:00 BP 132/74 09/19/19 08:00 Pulse Ox 97 09/19/19 08:36 Intake & Output 09/18/19 09/19/19 09/19/19 18:59 06:59 18:59 Intake Total 840 180 Output Total 400 Balance 840 -400 180 Weight 89.4 kg Intake: Oral 840 180 Output: Urine 400 Other: Voiding Method Toilet Toilet # Voids 2 2 - Exam GENERAL EXAM: Patient is alert and oriented and doesn't appear to be in any acute distress HEENT: Normocephalic. Normal reaction of pupils, equal size, normal range of extraocular motion. No erythema or exudates in the throat. NECK: No masses, no nuchal rigidity. CHEST: No chest wall deformity. LUNGS: Reveal some scattered coarse rhonchi and mild wheezing HEART: S1 and S2 normal. Irregularly Irregular ABDOMEN: No hepatosplenomegaly, normal bowel sounds, no guarding or rigidity. SKIN: No rashes CENTRAL NERVOUS SYSTEM: No focal deficits. EXTREMITIES: No cyanosis, clubbing or edema. - Labs CBC & Chem 7: 09/19/19 05:21 09/19/19 05:21 Labs: Abnormal Lab Results - Last 24 Hours (Table) 09/18/19 09/18/19 09/18/19 Range/Units 11:23 16:33 20:23 WBC (3.8-10.6) k/uL Neutrophils # (1.3-7.7) k/uL Lymphocytes # (1.0-4.8) k/uL Sodium (137-145) mmol/L Carbon Dioxide (22-30) mmol/L Glucose (74-99) mg/dL POC Glucose (mg/dL) 250 H 207 H 367 H (75-99) mg/dL Calcium (8.4-10.2) mg/dL Total Protein (6.3-8.2) g/dL Albumin (3.5-5.0) g/dL 09/19/19 09/19/19 09/19/19 Range/Units 05:21 05:21 05:53 WBC 15.4 H (3.8-10.6) k/uL Neutrophils # 13.6 H (1.3-7.7) k/uL Lymphocytes # 0.8 L (1.0-4.8) k/uL Sodium 133 L (137-145) mmol/L Carbon Dioxide 31 H (22-30) mmol/L Glucose 180 H (74-99) mg/dL POC Glucose (mg/dL) 195 H (75-99) mg/dL Calcium 8.0 L (8.4-10.2) mg/dL Total Protein 5.1 L (6.3-8.2) g/dL Albumin 2.7 L (3.5-5.0) g/dL Assessment and Plan Plan: IMPRESSION / ASSESSMENT: #1 Acute COPD exacerbation and tracheobronchitis #2 Paroxysmal atrial fibrillation, currently in atrial fibrillation with rates in the 90s, anticoagulated with eliquis 2.5 mg one tablet by mouth twice a day #3 Chronic diastolic heart failure, stable from a heart failure symptom standpoint #4 Preserved LV systolic function by recent echo #5 History of CAD status post stenting #6 Hypertension #7 Dyslipidemia #8 Abnormal TSH Plan We will increase the patient's dose of Eliquis 5 mg one tablet by mouth twice a day, he is over the age of 78, but his weight is not less than 60 kg and his creatinine is stable. Rest of his medications. He may be able to be discharged from our perspective, we'll make him a follow-up appointment in the office. DNP note has been reviewed, I agree with a documented findings and plan of care. Patient was seen and examined.
[2019-09-19 11:15] VITALS: BP 101/62; RESP 16
[2019-09-19 12:02] LABS: Glucose,Whole Blood 223 mg/dL (75-99)
[2019-09-19] MEDS: ISOSORBIDE MONONITRATE ER 60 MG TAB.ER.24H PO SCH (12:08)
[2019-09-19 12:10] VITALS: PULSE 104
--- NOTE | 2019-09-19 14:49 | P.DS ---
Providers Date of admission: 09/08/19 11:55 Expected date of discharge: 09/19/19 Attending physician: Florian Rdz Consults: 09/06/19 23:33 Consult Physician Routine Consulting Provider: Santana Stanley Consult Reason/Comments: copd Do you want consulting provider notified?: Yes 09/08/19 13:44 Consult Physician Routine Consulting Provider: Bhakti Lopez Consult Reason/Comments: shortness of breath Do you want consulting provider notified?: Yes 09/10/19 21:00 Consult Physician Routine Consulting Provider: Giles Lin Consult Reason/Comments: A-fib RVR Do you want consulting provider notified?: Yes, Notify in am Primary care physician: Florian Kendell [facility] Course: Discharge diagnosis 1. Increased shortness of breath related to acute COPD exacerbation and acute purulent bronchitis. Chest x-ray completed showing mild pleural diaphragmatic scarring left lung base unchanged. No acute lung disease. Patient started Solu-Medrol azithromycin. Continue DuoNeb breathing treatments. Denies services are following. Patient maintained on Solu-Medrol and azithromycin. Patient has been cleared for discharge from pulmonary standpoint. Patient will be DC'd on prednisone taper. Patient to follow-up outpatient with sales process manager for further management. Patient also be DC'd on azithromycin for 5 more days 2. Acute purulent tracheobronchitis. Patient started on azithromycin. Pulmonary service following 3. History of chronic atrial fibrillation patient maintained on eliquis 4. History of coronary disease with previous stent placement. Maintained on Plavix 5. History of COPD 6. History of prostate cancer 7. History of diabetes mellitus type 2. sliding scale insulin has been ordered. Hemoglobin A1c 8.2 8. History of seizures. Maintained on Keppra 9. A. fib with rapid ventricular response. Patient currently maintained on Cardizem drip. Cardiology services are consulted medications to be adjusted. Patient maintained on eliquis for anticoagulation 2-D echo completed showing EF of 55-60. Patient has been transitioned to oral Cardizem will continue to monitor heart rate. Patient's Lopressor has been increased during hospitalization patient also started on Cardizem. Per cardiology patient eliquis also increased to 5 mg twice daily due to patient's age, weight and creatinine. Patient follow-up outpatient with cardiology services for further management. Patient has been cleared for discharge from cardiology services 10. Hyperthyroidism. TSH low at 0.119. Patient was started on Tapazole due to elevated heart rate. Patient also will be arranged to follow with endocrinology outpatient for further management Hospital course This is a 79-year-old male patient who presented with complaints of increased shortness of breath and wheezing. Patient was recently admitted and discharged last week. Patient reports that he did feel much improved but then started to progressively get worse over the past couple days. Patient states he was very eager to go home in order to see his who is at [facility]. Patient does have past medical history of asthma, coronary artery disease, COPD, CVA, diabetes mellitus, hyperlipidemia, hypertension, myocardial infarction, osteoarthritis, seizure disorder, prostate cancer and previous heart cath with stents. Chest x-ray completed showing mild pleural diaphragmatic lying left lung base unchanged. No acute lung disease. EKG completed showing normal sinus rhythm septal infarct, age undetermined. Pulmonary services have been consulted. Patient started on Solu-Medrol and DuoNeb breathing treatments. Patient also started on azithromycin. Lactic acid elevated at 2. 9 repeat lactic acid 0.9. On examination patient still has significant expiratory wheezing. Patient denies chest pain. Patient denies nausea vomiting or diarrhea. Patient denies any urinary burning or frequency On 09/08/2019 patient is alert and oriented 3. Patient still having significant wheezing. Patient remains on azithromycin and Solu-Medrol. Patient verbalized understanding that he will likely have to stay throughout the weekend. Pulmonary services are following. Patient denies chest pain. Patient denies nausea vomiting or diarrhea. Patient denies any urinary burning or frequency. Patient does state he feels slightly more improved from yesterday. Continue Mucinex. Sputum culture ordered On 09/09/2019 patient is alert and oriented 3. Patient reports some improvement with shortness breath and wheezing. Patient still had significant wheezing to auscultation. Cardiology services have been consulted due to known patient's cardiac history. 2-D echo ordered. Patient ordered for cardiac telemetry. At this time patient denies chest pain. Patient denies nausea vomiting or diarrhea. Patient denies any urinary burning or frequency On 09/10/2019 patient was seen and examined on the medical floor he is alert and oriented 3 in no apparent distress he is still complaining of cough, shortness of breath, and wheezing. This morning patient developed atrial fibrillation with rapid ventricular response he was evaluated by cardiology and patient will be transferred to telemetry floor and will be started on Cardizem drip otherwise patient denies any symptoms there is no fever or chills no headache or dizziness no chest pain no nausea or vomiting no abdominal pain no diarrhea no burning with urination no frequency or urgency and no hematuria. On 09/11/2019 patient was seen and examined on the medical floor he states he is feeling better he is still having some cough some shortness of breath with activity and wheezing otherwise he denies any complaints there is no fever or chills no headache or dizziness no chest pain no nausea or vomiting no abdominal pain no diarrhea no burning was urination no frequency or urgency and no hematuria. On 09/12/2019 patient is alert and oriented 3. Patient states he is feeling improved. Patient still has productive cough and some shortness of breath with activity. Patient remains on Cardizem for control at this time. Cardiology services are following medications to be adjusted. Patient remains on eliquis for anticoagulation. Patient remains on IV Solu-Medrol and azithromycin On 09/13/2019 patient is alert and oriented 3. Patient continuing to improve in regards to respiratory wheezing. Patient maintained on Cardizem for rate control. At this time patient denies chest pain. Patient denies shortness of breath. Patient denies nausea vomiting or diarrhea. Patient denies any urinary burning or frequency On 09/14/2019 patient is alert and oriented 3. Patient's showing slight improvement in regards to wheezing. Continue IV Solu-Medrol and azithromycin per pulmonary services. Patient also remains on Cardizem for rate control. Heart rate is improving. Patient is continuing to get short of breath with activity. Patient denies chest pain. Patient denies nausea vomiting or diarrhea. Patient denies any urinary burning or frequency On 09/15/2019 patient alert and oriented 3. Patient has been taken off Cardizem drip and by mouth Cardizem added per cardiology. She remains on IV Solu-Medrol per pulmonary. At this time patient still has wheezing to auscultation but does report improvement with shortness of breath. Patient denies chest pain. Patient denies nausea vomiting or diarrhea. Patient denies any urinary burning or frequency On 09/16/2019 patient alert and oriented 3. Patient has been transitioned to oral Cardizem. Patient still having some wheezy to auscultation and short of breath with activity. Did discuss case with of the pulmonology does not feel patient is ready for discharge home. Will order repeat chest x-ray to rule out pneumonia. Patient denies any chest pain. Patient has been on room air. Patient denies nausea vomiting or diarrhea. Patient denies any urinary burning or frequency On 09/17/2019 patient is alert and oriented 3 in no apparent distress he is still complaining of cough and shortness of breath otherwise he denies any complaints there is no fever or chills no headache or dizziness no chest pain no nausea or vomiting no abdominal pain no diarrhea no burning with urination no frequency or urgency and no hematuria. On 09/18/2019 patient was seen and examined on the medical floor he is alert and oriented 3 in no apparent distress he is still complaining of cough and shortness of breath there is no chest pain he is ambulating without any difficulty there is no fever or chills no headache or dizziness no nausea or vomiting no abdominal pain no diarrhea and no urinary symptoms On 09/19/2019 patient is alert and oriented 3. Patient is very eager to go home. Patient's lung sounds have significantly improved. Patient has been cleared for discharge from cardiology and pulmonary standpoint. Patient will be DC'd on increased dose of metoprolol and Cardizem for rate control. Eliquis also increased per cardiology for anticoagulation. Patient will be DC'd home on prednisone taper and azithromycin. Patient to follow up with cardiology and pulmonary services outpatient for further management chronic conditions. Patient also to follow with endocrinology for hyperthyroidism. At this time patient denies chest pain or shortness of breath. Patient denies nausea vomiting or diarrhea. Patient denies any urinary burning or frequency I performed an examination of the patient and discussed their management with the Nurse Practitioner. I have reviewed the Nurse Practitioner's notes and agree with the documented findings and plan of care Patient Condition at Discharge: Stable Plan - Discharge Summary Discharge Rx Participant: No New Discharge Prescriptions: New Diltiazem Cd [Cardizem CD] 120 mg PO DAILY 30 Days #30 cap.er.24h Apixaban [Eliquis] 5 mg PO BID 30 Days #60 tab Methimazole [Tapazole] 5 mg PO DAILY 30 Days #30 tab Metoprolol Succinate (ER) [Toprol XL] 200 mg PO DAILY 30 Days #60 tab.er.24h Azithromycin [Zithromax] 500 mg PO DAILY 5 Days #5 tab predniSONE 10 mg PO DIRECTED 20 Days #50 tab Continue Lisinopril [Zestril] 2.5 mg PO AC-SUPPER Montelukast Sodium [Singulair] 10 mg PO HS Albuterol Sulfate [Proair Hfa] 2 puff INHALATION RT-Q6H PRN PRN Reason: Shortness Of Breath Clopidogrel [Plavix] 75 mg PO DAILY Omeprazole [PriLOSEC] 20 mg PO DAILY Multivitamins, Thera [Multivitamin (formulary)] 1 tab PO DAILY Fluticasone/Salmeterol [Advair 500-50 Diskus] 1 puff INHALATION RT-BID levETIRAcetam [Keppra] 500 mg PO BID Potassium Chloride ER [K-Dur 20] 20 meq PO DAILY Simvastatin [Zocor] 20 mg PO HS glipiZIDE [Glucotrol] 5 mg PO AC-TID tab diphenhydrAMINE [Benadryl] 25 mg PO HS Ascorbic Acid [Vitamin C] 500 mg PO DAILY Fluticasone Nasal Sterling [Flonase Nasal Sterling] 1 spray EA NOSTRIL DAILY PRN PRN Reason: STUFFY NOSE Ipratropium-Albuterol Nebulize [Duoneb 0.5 mg-3 mg/3 ml Soln] 3 ml INHALATION RT-QID ampul.neb Furosemide [Lasix] 20 mg PO DAILY Isosorbide Mononitrate [Imdur] 120 mg PO DAILY Discontinued Apixaban [Eliquis] 2.5 mg PO BID Midodrine [ProAmatine] 2.5 mg PO AC-TID #90 tab Metoprolol Succinate [Toprol XL] 50 mg PO DAILY Cefdinir [Omnicef] 300 mg PO BID 7 Days #14 cap predniSONE See Taper PO DAILY Discharge Medication List Albuterol Sulfate [Proair Hfa] 2 puff INHALATION RT-Q6H PRN 01/11/14 [History] Clopidogrel [Plavix] 75 mg PO DAILY 01/11/14 [History] Lisinopril [Zestril] 2.5 mg PO AC-SUPPER 01/11/14 [History] Montelukast Sodium [Singulair] 10 mg PO HS 01/11/14 [History] Multivitamins, Thera [Multivitamin (formulary)] 1 tab PO DAILY 01/11/14 [History] Omeprazole [PriLOSEC] 20 mg PO DAILY 01/11/14 [History] Fluticasone/Salmeterol [Advair 500-50 Diskus] 1 puff INHALATION RT-BID 03/28/15 [History] Potassium Chloride ER [K-Dur 20] 20 meq PO DAILY 06/27/18 [History] levETIRAcetam [Keppra] 500 mg PO BID 06/27/18 [History] Simvastatin [Zocor] 20 mg PO HS 08/14/18 [History] glipiZIDE [Glucotrol] 5 mg PO AC-TID tab 09/06/18 [Rx] Ascorbic Acid [Vitamin C] 500 mg PO DAILY 06/01/19 [History] Fluticasone Nasal Sterling [Flonase Nasal Sterling] 1 spray EA NOSTRIL DAILY PRN 06/01/19 [History] diphenhydrAMINE [Benadryl] 25 mg PO HS 06/01/19 [History] Ipratropium-Albuterol Nebulize [Duoneb 0.5 mg-3 mg/3 ml Soln] 3 ml INHALATION RT-QID ampul.neb 06/04/19 [Rx] Furosemide [Lasix] 20 mg PO DAILY 08/31/19 [History] Isosorbide Mononitrate [Imdur] 120 mg PO DAILY 08/31/19 [History] Apixaban [Eliquis] 5 mg PO BID 30 Days #60 tab 09/19/19 [Rx] Azithromycin [Zithromax] 500 mg PO DAILY 5 Days #5 tab 09/19/19 [Rx] Diltiazem Cd [Cardizem CD] 120 mg PO DAILY 30 Days #30 cap.er.24h 09/19/19 [Rx] Methimazole [Tapazole] 5 mg PO DAILY 30 Days #30 tab 09/19/19 [Rx] Metoprolol Succinate (ER) [Toprol XL] 200 mg PO DAILY 30 Days #60 tab.er.24h 09/19/19 [Rx] predniSONE 10 mg PO DIRECTED 20 Days #50 tab 09/19/19 [Rx] Follow up Appointment(s)/Referral(s): Lalito Florence MD [REFERRING] - 1 Week (Hyperthyroid referral. Dr. Rdz has to refer you over to this doctor, per park manager) Florian Rdz MD [Primary Care Provider] - 09/27/19 3:15 pm (Thursday) Santana Stanley MD [STAFF PHYSICIAN] - 09/29/19 12:00 pm () Drake Arriaga MD [STAFF PHYSICIAN] - 10/05/19 3:45 pm (Thursday) Patient Instructions/Handouts: Acute Bronchitis (ED), COPD (Chronic Obstructive Pulmonary Disease) (DC) Discharge Disposition: HOME SELF-CARE
--- NOTE | 2019-09-19 14:57 | PN ---
PROGRESS NOTE DATE OF SERVICE: 09/19/2019. He is hemodynamically stable. He is less short of breath. PHYSICAL EXAMINATION: His respiratory rate of 16, pulse rate of 102, blood pressure 101/62. He is afebrile. HEENT: Unremarkable. CHEST: Reveals expiratory wheeze. CARDIOVASCULAR SYSTEM: Reveals an S1, S2. ABDOMEN: Soft. There is trace pedal edema. White count is 15.4, hemoglobin of 14.6, sodium 133, potassium 3.7, chloride 98, bicarb 31. IMPRESSION: 1. Asthma with chronic obstructive pulmonary disease with acute exacerbation. 2. Atrial fibrillation. 3. Medical debility. Increase his activity level. Agree with possible discharge planning with close outpatient followup on tapering doses of steroids. He was counseled regarding his condition and this approach. MMODL / VAUGHNN: [id number] /
[2019-09-19] MEDS ORDERED: APIXABAN 5 MG TAB PO SCH (21:00)
--- NOTE | 2019-09-20 12:45 | CDI ---
Documentation Clarification Form Date: 09/20/19 From: Yvette Ramos Phone: If you have a question about this query, please contact Iman Melo Training Project Manager at [phone] between 8am and 5pm. Admit Date: 09/08/19 Discharge Date:09/19/19 Patient Name: Sid Diaz Visit Number: [id number] ATTENTION: The Clinical Documentation Specialists (CDI) and [facility] Coding Staff appreciate your assistance in clarifying documentation. Please respond to the clarification below the line at the bottom and electronically sign. The CDI & [facility] Coding staff will review the response and follow-up if needed. Please note: Queries are made part of the Legal Health Record. If you have any questions, please contact the author of this message via ITS. Dear Dr. Rdz Developing left lower lobe pneumonia was documented in Dr. Norris's notes on 09/16. Will order repeat chest x-ray to rule out pneumonia is documented in your progress notes and in the discharge summary. History/Risk Factors: COPD exacerbation, acute bronchitis Clinical Indicators: cough, dyspnea Vital signs: T. 97.3, P. 101, R. 20, BP 137/82 WBC/Left shift: 13.6/88% X-ray: Chest 09/13: In addition to pleural scarring of the left lung base there is a slight retrocardiac opacity that may represent atelectasis or developing pneumonia Lung/Breathing assessment: Expiratory wheeze, diminished lung sounds Treatment: Antibiotics: PO zithromax started on admission O2: Nasal cannula at 2 - 3 lpm Breathing Tx: Duoneb In order to capture the severity of condition, please clarify if the condition signifies and you are treating for: Pneumonia Ruled Out Bacterial Pneumonia, specify causal organism (if known) Gram Negative Pneumonia Due to Strep Due to Staph Due to E. Coli Other bacteria (please specify) Viral Pneumonia, specify casual organism (if known) Healthcare Acquired Pneumonia/Pneumonia, unspecified Other, please specify Unable to determine Pneumonia ruled out MTDD
== END 2019-09-19 15:33 | disposition home or self-care (01) | DRG 191 ==
LOC: EC 20:47 → 6NMEDSUR 23:32 → OBSVTOIN 09-08 11:55 → 3SCARD 09-10 13:25 → UNDODISIN 09-10 15:35
PROVIDERS: ADMIT Internal Medicine; ATTEND Internal Medicine
DX: J43.9 Emphysema, unspecified (principal); E87.2 Acidosis; I50.32 Chronic diastolic (congestive) heart failure; J45.901 Unspecified asthma with (acute) exacerbation; I11.0 Hypertensive heart disease with heart failure; H91.92 Unspecified hearing loss, left ear; E05.90 Thyrotoxicosis, unspecified without thyrotoxic crisis or storm; E11.9 Type 2 diabetes mellitus without complications; E78.5 Hyperlipidemia, unspecified; R53.81 Other malaise; G40.909 Epilepsy, unspecified, not intractable, without status epilepticus; G47.33 Obstructive sleep apnea (adult) (pediatric); I25.10 Atherosclerotic heart disease of native coronary artery without angina pectoris; I25.2 Old myocardial infarction; I48.0 Paroxysmal atrial fibrillation; J20.9 Acute bronchitis, unspecified; L71.9 Rosacea, unspecified; M19.90 Unspecified osteoarthritis, unspecified site; Z79.01 Long term (current) use of anticoagulants; Z79.02 Long term (current) use of antithrombotics/antiplatelets; Z79.84 Long term (current) use of oral hypoglycemic drugs; Z79.899 Other long term (current) drug therapy; Z88.5 Allergy status to narcotic agent; Z88.8 Allergy status to other drugs, medicaments and biological substances; Z85.46 Personal history of malignant neoplasm of prostate; Z85.828 Personal history of other malignant neoplasm of skin; Z86.14 Personal history of Methicillin resistant Staphylococcus aureus infection; Z86.73 Personal history of transient ischemic attack (TIA), and cerebral infarction without residual deficits; Z87.891 Personal history of nicotine dependence; Z95.5 Presence of coronary angioplasty implant and graft; Z87.01 Personal history of pneumonia (recurrent); Z90.49 Acquired absence of other specified parts of digestive tract; Z90.79 Acquired absence of other genital organ(s); Z80.0 Family history of malignant neoplasm of digestive organs; Z80.8 Family history of malignant neoplasm of other organs or systems; Z82.0 Family history of epilepsy and other diseases of the nervous system
CPT/HCPCS: 36415; 71045; 71046; 71250; 80053; 83036; 83605; 83735; 83880; 84439; 84443; 85025; 87040; 87070; 87205; 87502; 93005; 93306; 94640; 94760; 96374; 99285

== ENCOUNTER 2019-10-07 08:53 | Inpatient (IN) | payer MEDICARE ==
[2019-10-07] MEDS ORDERED: methylPREDNISolone SOD SUCCI 125 MG/2 ML VIAL IV STA (09:07)
[2019-10-07] MEDS ORDERED: IPRATROPIUM-ALBUTEROL 3 ML NEB INHALATION STA (09:07)
[2019-10-07] MEDS ORDERED: SODIUM CHLORIDE 0.9% 1,000 ML IV STA ×2 (09:07)
[2019-10-07] MEDS ORDERED: ACETAMINOPHEN TAB 500 MG TAB PO STA (09:09)
[2019-10-07] MEDS ORDERED: DILTIAZEM 5 MG/ML 5 ML VIAL IVP STA (09:09)
[2019-10-07] MEDS ORDERED: SODIUM CHLORIDE 0.9% 2,000 ML IV STA (09:10)
[2019-10-07] MEDS ORDERED: cefTRIAXone IN SWFI 1,000 MG/10 ML SYRINGE IVP STA (09:12)
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
[2019-10-07] MEDS ORDERED: FUROSEMIDE 10 MG/ML 2 ML VIAL IV STA (09:25)
[2019-10-07] MEDS ORDERED: DILTIAZEM DRIP BOLUS FROM BAG 1 MG SOLN IV ONE ×4 (09:31→10:23)
[2019-10-07] MEDS: DILTIAZEM 125 MG in SODIUM CHLORIDE 0.9% 100 ML IV SCH ×2 (09:32→22:01)
[2019-10-07 09:35] LABS: Basophils % (A) 1 %; Eosinophils % (A) 0 %; HGB 12.7 gm/dL (13.0-17.5); Lymphocytes # (A) 2.3 k/uL (1.0-4.8); Lymphocytes % (A) 34 %; MCH 28.4 pg (25.0-35.0); MCHC 31.8 g/dL (31.0-37.0); MCV 89.1 fL (80.0-100.0); Mean Platelet Volume 7.5; Monocytes # (A) 0.4 k/uL (0-1.0); Monocytes % (A) 6 %; Neutrophils # (A) 3.7 k/uL (1.3-7.7); Neutrophils % (A) 55 %; RBC 4.49 m/uL (4.30-5.90); RDW 15.9 % (11.5-15.5); WBC 6.8 k/uL (3.8-10.6)
[2019-10-07 09:39] LABS: Platelet Count 415 k/uL (150-450)
[2019-10-07 09:49] LABS: ALT 25 U/L (4-49); AST 24 U/L (17-59); African American GFR (CKD) >90 (>60 ml/min/1.73 sqM); Albumin 3.4 g/dL (3.5-5.0); Alkaline Phosphatase 76 U/L (38-126); Anion Gap 8 mmol/L; Blood Urea Nitrogen 8 mg/dL (9-20); Calcium 8.8 mg/dL (8.4-10.2); Carbon Dioxide 26 mmol/L (22-30); Chloride 96 mmol/L (98-107); Glucose 262 mg/dL (74-99); Magnesium 1.7 mg/dL (1.6-2.3); Non-African American GFR(CKD) 90 (>60 ml/min/1.73 sqM); Sodium 130 mmol/L (137-145); Total Bilirubin 0.7 mg/dL (0.2-1.3); Total Protein 6.1 g/dL (6.3-8.2)
[2019-10-07 10:00] LABS: Prothrombin Time 10.5 sec (9.0-12.0)
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
[2019-10-07] MEDS ORDERED: PIPERACILLIN-TAZOBACTAM 3.375 GM in SODIUM CHLORIDE 0.9% 100 ML IVPB STA (10:36)
[2019-10-07] MEDS ORDERED: PNEUMONIA PROTOCOL UTILIZED 1 EACH MISC PO PRN (10:36)
[2019-10-07] MEDS ORDERED: LEVOFLOXACIN 750MG-D5W PMX 750 MG in DEXTROSE/WATER 1 150ML.BAG IVPB STA (10:36)
[2019-10-07] MEDS ORDERED: SODIUM CHLORIDE 0.9% 1,000 ML IV SCH (10:45)
[2019-10-07 11:01] LABS: Appearance,Urine Clear (Clear); Bilirubin,Urine Negative (Negative); Blood,Urine Negative (Negative); Color,Urine Colorless; Glucose,Urine (UA) 4+ (Negative); Ketones,Urine Trace (Negative); Leukocyte Esterase,Urine Negative (Negative); Nitrite,Urine Negative (Negative); PH, Urine 6.5 (5.0-8.0); Protein,Urine Negative (Negative); Specific Gravity,Urine 1.005 (1.001-1.035); Urobilinogen,Urine <2.0 mg/dL (<2.0)
[2019-10-07] MEDS ORDERED: FLUTICASONE 50MCG/SPRAY NASAL 16GM EA NOSTRIL PRN (11:04)
[2019-10-07] MEDS ORDERED: ALBUTEROL NEBULIZED 2.5 MG/3 ML INHALATION PRN (11:04)
[2019-10-07] MEDS: glipiZIDE 5 MG TAB PO SCH ×2 (14:03→16:50)
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
[2019-10-07] MEDS: IPRATROPIUM-ALBUTEROL 3 ML NEB INHALATION SCH ×3 (15:10→19:09)
[2019-10-07 16:50] LABS: Glucose,Whole Blood 432 mg/dL (75-99)
[2019-10-07] MEDS: methylPREDNISolone SOD SUCCI 125 MG/2 ML VIAL IV SCH ×2 (16:50→22:00)
[2019-10-07] MEDS: LISINOPRIL 2.5 MG TAB PO SCH (16:50)
[2019-10-07] MEDS: INSULIN ASPART (NovoLOG) 100 UNIT/ML VIAL SQ SCH ×2 (17:04→23:07)
[2019-10-07] MEDS: SYMBICORT 160-4.5 MCG INHALER INHALATION SCH (19:09)
[2019-10-07 20:45] LABS: Glucose,Whole Blood 343 mg/dL (75-99)
[2019-10-07] MEDS: PIPERACILLIN-TAZOBACTAM 3.375 GM in SODIUM CHLORIDE 0.9% 100 ML IVPB SCH (21:59)
[2019-10-07] MEDS: APIXABAN 5 MG TAB PO SCH (22:00)
[2019-10-07] MEDS: FUROSEMIDE 10 MG/ML 2 ML VIAL IV SCH (22:00)
[2019-10-07] MEDS: ATORVASTATIN 10 MG TAB PO SCH (22:00)
[2019-10-07] MEDS: levETIRAcetam 500 MG TAB PO SCH (22:00)
[2019-10-07] MEDS: MONTELUKAST 10 MG TAB PO SCH (22:00)
[2019-10-08] MEDS: PIPERACILLIN-TAZOBACTAM 3.375 GM in SODIUM CHLORIDE 0.9% 100 ML IVPB SCH ×3 (05:29→18:46)
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
[2019-10-08 06:31] LABS: Glucose,Whole Blood 224 mg/dL (75-99)
[2019-10-08] MEDS: INSULIN ASPART (NovoLOG) 100 UNIT/ML VIAL SQ SCH ×4 (06:31→21:02)
[2019-10-08] MEDS: PANTOPRAZOLE 40 MG TABLET PO SCH (06:31)
[2019-10-08] MEDS: glipiZIDE 5 MG TAB PO SCH ×3 (06:31→17:06)
[2019-10-08 06:56] LABS: Basophils % (A) 0 %; Eosinophils % (A) 0 %; HCT 35.6 % (39.0-53.0); HGB 11.8 gm/dL (13.0-17.5); Lymphocytes # (A) 0.8 k/uL (1.0-4.8); Lymphocytes % (A) 12 %; MCH 29.1 pg (25.0-35.0); MCV 88.2 fL (80.0-100.0); Mean Platelet Volume 7.3; Monocytes # (A) 0.2 k/uL (0-1.0); Monocytes % (A) 3 %; Neutrophils # (A) 5.7 k/uL (1.3-7.7); Neutrophils % (A) 83 %; Platelet Count 411 k/uL (150-450); RBC 4.04 m/uL (4.30-5.90); RDW 15.8 % (11.5-15.5); WBC 6.9 k/uL (3.8-10.6)
[2019-10-08 07:08] LABS: ALT 21 U/L (4-49); AST 21 U/L (17-59); African American GFR (CKD) >90 (>60 ml/min/1.73 sqM); Albumin 2.9 g/dL (3.5-5.0); Alkaline Phosphatase 64 U/L (38-126); Anion Gap 7 mmol/L; Blood Urea Nitrogen 9 mg/dL (9-20); Calcium 8.3 mg/dL (8.4-10.2); Carbon Dioxide 26 mmol/L (22-30); Chloride 99 mmol/L (98-107); Glucose 189 mg/dL (74-99); Non-African American GFR(CKD) >90 (>60 ml/min/1.73 sqM); Potassium 3.5 mmol/L (3.5-5.1); Sodium 132 mmol/L (137-145); Total Bilirubin 0.6 mg/dL (0.2-1.3); Total Protein 5.5 g/dL (6.3-8.2)
[2019-10-08] MEDS: SYMBICORT 160-4.5 MCG INHALER INHALATION SCH ×2 (07:30→19:27)
[2019-10-08] MEDS: IPRATROPIUM-ALBUTEROL 3 ML NEB INHALATION SCH ×4 (07:30→19:28)
[2019-10-08] MEDS ORDERED: FUROSEMIDE 20 MG TAB PO SCH (09:00)
[2019-10-08] MEDS: methylPREDNISolone SOD SUCCI 125 MG/2 ML VIAL IV SCH ×3 (09:29→21:02)
[2019-10-08] MEDS: FUROSEMIDE 10 MG/ML 2 ML VIAL IV SCH ×2 (09:30→21:02)
[2019-10-08] MEDS: APIXABAN 5 MG TAB PO SCH ×2 (09:31→21:01)
[2019-10-08] MEDS: ASCORBIC ACID 500 MG TAB PO SCH (09:31)
[2019-10-08] MEDS: CLOPIDOGREL 75 MG TAB PO SCH (09:32)
[2019-10-08] MEDS: ISOSORBIDE MONONITRATE ER 60 MG TAB.ER.24H PO SCH (09:32)
[2019-10-08] MEDS: levETIRAcetam 500 MG TAB PO SCH ×2 (09:32→21:01)
[2019-10-08] MEDS: METOPROLOL SUCCINATE (ER) 100 MG TAB.ER.24H PO SCH (09:33)
[2019-10-08] MEDS: MULTIVITAMINS, THERA 1 EACH TAB PO SCH (09:33)
[2019-10-08] MEDS: METHIMAZOLE 5 MG TAB PO SCH (09:34)
[2019-10-08] MEDS: POTASSIUM CHLORIDE ER 20 MEQ TAB.ER PO SCH (09:37)
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
[2019-10-08 11:59] LABS: Glucose,Whole Blood 184 mg/dL (75-99)
--- NOTE | 2019-10-08 12:44 | P.PN ---
Subjective Progress Note Date: 10/08/19 This is a 79-year-old male with a known history of atrial fibrillation anticoagulated with Eliquis, COPD, myocardial infarction, coronary artery disease with cardiac stent, seizure disorder and hyperthyroidism in which she was just started on Tapazole during his last hospitalization. Patient was just recently discharged earlier in September from the hospital after being treated for COPD exacerbation and bronchitis. He also at that time had A. fib with RVR and had an increase in his Lopressor and he was started on oral Cardizem. Patient reports taking all of his medications. Patient reports never fully recovering after his hospitalization. He reports having a shortness of breath and left-sided chest pain that started to worsen throughout the night. He has a productive cough at times. Chest x-ray showing left upper lobe and possible mild right lower lobe infiltrates. Temp of 100.2 BP 91/64. Lactic was normal at 1.9. Influenza screening was negative. Patient was given Rocephin Zosyn and Levaquin in the ER for his pneumonia. There is also concerns for sepsis. He and his been given IV fluids. EKG had shown atrial fibrillation with rapid ventricular response heart rate was 175. In the ER patient was started on Cardizem drip. Troponin is elevated at 0.216. Cardiology and pulmonary services are on consult. Patient denies any nausea or vomiting bowel movement changes or urinary symptoms. On 10/08/2019 patient was seen and examined on the medical floor he is alert and oriented 3 in no apparent distress he is still complaining of shortness of breath cough and wheezing otherwise he denies any complaints there is no fever or chills no headache or dizziness no chest pain no nausea or vomiting no abdominal pain no diarrhea and no urinary symptoms Objective - Vital Signs Vital signs: Vital Signs Temp 97.8 F 10/08/19 11:15 Pulse 88 10/08/19 11:28 Resp 26 H 10/08/19 11:15 BP 97/57 10/08/19 11:15 Pulse Ox 97 10/08/19 11:15 Intake & Output 10/07/19 10/08/19 10/08/19 18:59 06:59 18:59 Intake Total 125.000 230 Output Total 1075 675 Balance 125.000 -845 -675 Weight 117.934 kg Intake: Intake, IV Titration 125.000 Amount Diltiazem 125 mg In 125.000 Sodium Chloride 0.9% 100 ml @ 10 MG/HR 10 mls/hr IV .[id number] [facility] Rx#: [id number] Oral 230 Output: Urine 1075 675 Other: Voiding Method Urinal Urinal Urinal # Voids 1 1 - Exam HEENT head normocephalic and atraumatic Neck is supple no JVD no goiter no lymphadenopathy Chest exam reveals diffuse crackles in both lung villarreal with wheezing Cardiac exam reveals regular heart sounds S1 and S2 no gallops no murmurs Abdomen is soft nontender no organomegaly with normal bowel sounds Extremity exam reveals no edema no cyanosis or clubbing Neurological examination patient is alert and oriented 3 no focal neurological deficit - Labs CBC & Chem 7: 10/08/19 05:58 10/08/19 05:58 Labs: Abnormal Lab Results - Last 24 Hours (Table) 10/07/19 10/07/19 10/08/19 Range/Units 16:44 20:42 05:58 RBC 4.04 L (4.30-5.90) m/uL Hgb 11.8 L (13.0-17.5) gm/dL Hct 35.6 L (39.0-53.0) % RDW 15.8 H (11.5-15.5) % Lymphocytes # 0.8 L (1.0-4.8) k/uL Sodium (137-145) mmol/L Creatinine (0.66-1.25) mg/dL Glucose (74-99) mg/dL POC Glucose (mg/dL) 432 H 343 H (75-99) mg/dL Calcium (8.4-10.2) mg/dL Total Protein (6.3-8.2) g/dL Albumin (3.5-5.0) g/dL 10/08/19 10/08/19 10/08/19 Range/Units 05:58 06:25 11:49 RBC (4.30-5.90) m/uL Hgb (13.0-17.5) gm/dL Hct (39.0-53.0) % RDW (11.5-15.5) % Lymphocytes # (1.0-4.8) k/uL Sodium 132 L (137-145) mmol/L Creatinine 0.56 L (0.66-1.25) mg/dL Glucose 189 H (74-99) mg/dL POC Glucose (mg/dL) 224 H 184 H (75-99) mg/dL Calcium 8.3 L (8.4-10.2) mg/dL Total Protein 5.5 L (6.3-8.2) g/dL Albumin 2.9 L (3.5-5.0) g/dL Microbiology - Last 24 Hours (Table) 10/07/19 09:52 Blood Culture - Preliminary Blood No Growth after 24 hours 10/07/19 19:15 Gram Stain - Preliminary Sputum Sputum Culture - Preliminary Assessment and Plan Plan: 1. Shortness of breath multifactorial likely related to pneumonia, COPD exacerbation, fluid overload and atrial fibrillation with rapid ventricular response. Pulmonary service and cardiology on consult 2. Pneumonia with sepsis present on admission. Chest x-ray showing a left upper lobe and possible mild right lower lobe infiltrates. Patient given 1 dose of Rocephin in the ER and started on Zosyn and Levaquin in the ER. Patient did have a temp of 100.2 and blood pressure of 91/64. Influenza screen negative 3. Atrial fibrillation with rapid ventricular response. Currently on a Cardizem drip. Cardiology on consult 4. Patient has a known history of chronic atrial fibrillation anticoagulated with Eliquis. 5. Chest pain with Elevated troponin: Continue monitor cardiac enzymes. Cardiology on consult 6. Acute COPD exacerbation: Start IV Solu-Medrol 60 mg IV every 6 hours. Continue DuoNeb updraft treatments. Pulmonary and consult 7. Hyperthyroidism: Resume patient's Tapazole. Check TSH level. 8. Acute on Chronic diastolic CHF exacerbation. Echo from August shows an EF of 55-60%. Patient did receive 1 dose of IV Lasix in the ER. BNP 1470 9. Hyponatremia: Sodium is 130 on admission. We'll monitor 10. History of myocardial infarction with coronary artery disease and stent 11. History of seizure disorder on Keppra GI prophylaxis Protonix and DVT prophylaxis Eliquis
[2019-10-08] MEDS: LEVOFLOXACIN 750MG-D5W PMX 750 MG in DEXTROSE/WATER 1 150ML.BAG IVPB SCH (15:23)
[2019-10-08] MEDS: VERAPAMIL SR 180 MG TABLET.ER PO SCH (15:23)
[2019-10-08 17:05] LABS: Glucose,Whole Blood 339 mg/dL (75-99)
[2019-10-08] MEDS: LISINOPRIL 2.5 MG TAB PO SCH (17:07)
[2019-10-08 20:33] LABS: Glucose,Whole Blood 297 mg/dL (75-99)
[2019-10-08] MEDS: MONTELUKAST 10 MG TAB PO SCH (21:01)
[2019-10-08] MEDS: ATORVASTATIN 10 MG TAB PO SCH (21:01)
[2019-10-09] MEDS: IPRATROPIUM-ALBUTEROL 3 ML NEB INHALATION PRN (02:25)
[2019-10-09] MEDS: PIPERACILLIN-TAZOBACTAM 3.375 GM in SODIUM CHLORIDE 0.9% 100 ML IVPB SCH ×3 (04:50→19:49)
[2019-10-09 05:49] LABS: Glucose,Whole Blood 149 mg/dL (75-99)
[2019-10-09] MEDS: glipiZIDE 5 MG TAB PO SCH ×3 (06:25→16:46)
[2019-10-09] MEDS: INSULIN ASPART (NovoLOG) 100 UNIT/ML VIAL SQ SCH ×4 (06:25→21:22)
[2019-10-09] MEDS: PANTOPRAZOLE 40 MG TABLET PO SCH (06:25)
[2019-10-09 06:56] LABS: Basophils % (A) 0 %; Eosinophils % (A) 0 %; HCT 35.5 % (39.0-53.0); HGB 11.7 gm/dL (13.0-17.5); Lymphocytes # (A) 0.8 k/uL (1.0-4.8); Lymphocytes % (A) 7 %; MCH 29.2 pg (25.0-35.0); MCV 88.7 fL (80.0-100.0); Mean Platelet Volume 7.4; Monocytes # (A) 0.4 k/uL (0-1.0); Monocytes % (A) 3 %; Neutrophils # (A) 10.4 k/uL (1.3-7.7); Neutrophils % (A) 89 %; Platelet Count 440 k/uL (150-450); RDW 15.8 % (11.5-15.5); WBC 11.7 k/uL (3.8-10.6)
[2019-10-09 07:07] LABS: ALT 21 U/L (4-49); AST 27 U/L (17-59); African American GFR (CKD) >90 (>60 ml/min/1.73 sqM); Albumin 2.8 g/dL (3.5-5.0); Alkaline Phosphatase 65 U/L (38-126); Anion Gap 6 mmol/L; Blood Urea Nitrogen 13 mg/dL (9-20); Calcium 8.3 mg/dL (8.4-10.2); Carbon Dioxide 29 mmol/L (22-30); Chloride 98 mmol/L (98-107); Glucose 117 mg/dL (74-99); Non-African American GFR(CKD) >90 (>60 ml/min/1.73 sqM); Potassium 3.5 mmol/L (3.5-5.1); Sodium 133 mmol/L (137-145); Total Bilirubin 0.6 mg/dL (0.2-1.3); Total Protein 5.2 g/dL (6.3-8.2)
[2019-10-09] MEDS: IPRATROPIUM-ALBUTEROL 3 ML NEB INHALATION SCH ×4 (07:36→21:06)
[2019-10-09] MEDS: SYMBICORT 160-4.5 MCG INHALER INHALATION SCH ×2 (07:36→21:06)
[2019-10-09] MEDS: methylPREDNISolone SOD SUCCI 125 MG/2 ML VIAL IV SCH ×2 (10:32→16:47)
[2019-10-09] MEDS: APIXABAN 5 MG TAB PO SCH ×2 (10:33→21:23)
[2019-10-09] MEDS: CLOPIDOGREL 75 MG TAB PO SCH (10:33)
[2019-10-09] MEDS: ASCORBIC ACID 500 MG TAB PO SCH (10:33)
[2019-10-09] MEDS: levETIRAcetam 500 MG TAB PO SCH ×2 (10:34→21:23)
[2019-10-09] MEDS: METHIMAZOLE 5 MG TAB PO SCH (10:34)
[2019-10-09] MEDS: ISOSORBIDE MONONITRATE ER 60 MG TAB.ER.24H PO SCH (10:34)
[2019-10-09] MEDS: MULTIVITAMINS, THERA 1 EACH TAB PO SCH (10:35)
[2019-10-09] MEDS: METOPROLOL SUCCINATE (ER) 100 MG TAB.ER.24H PO SCH (10:35)
[2019-10-09] MEDS: POTASSIUM CHLORIDE ER 20 MEQ TAB.ER PO SCH (10:35)
[2019-10-09] MEDS: FUROSEMIDE 10 MG/ML 2 ML VIAL IV SCH (10:36)
--- NOTE | 2019-10-09 10:42 | P.PN ---
Subjective Progress Note Date: 10/09/19 This is a 79-year-old male with a known history of atrial fibrillation anticoagulated with Eliquis, COPD, myocardial infarction, coronary artery disease with cardiac stent, seizure disorder and hyperthyroidism in which she was just started on Tapazole during his last hospitalization. Patient was just recently discharged earlier in September from the hospital after being treated for COPD exacerbation and bronchitis. He also at that time had A. fib with RVR and had an increase in his Lopressor and he was started on oral Cardizem. Patient reports taking all of his medications. Patient reports never fully recovering after his hospitalization. He reports having a shortness of breath and left-sided chest pain that started to worsen throughout the night. He has a productive cough at times. Chest x-ray showing left upper lobe and possible mild right lower lobe infiltrates. Temp of 100.2 BP 91/64. Lactic was normal at 1.9. Influenza screening was negative. Patient was given Rocephin Zosyn and Levaquin in the ER for his pneumonia. There is also concerns for sepsis. He and his been given IV fluids. EKG had shown atrial fibrillation with rapid ventricular response heart rate was 175. In the ER patient was started on Cardizem drip. Troponin is elevated at 0.216. Cardiology and pulmonary services are on consult. Patient denies any nausea or vomiting bowel movement changes or urinary symptoms. On 10/08/2019 patient was seen and examined on the medical floor he is alert and oriented 3 in no apparent distress he is still complaining of shortness of breath cough and wheezing otherwise he denies any complaints there is no fever or chills no headache or dizziness no chest pain no nausea or vomiting no abdominal pain no diarrhea and no urinary symptoms. On 10/09/2019 patient is alert and oriented 3 in no distress, he is still complaining of cough, wheezing, and shortness of breath with any activity otherwise he denies any complaints there is no fever or chills no headache or dizziness no chest pain no nausea or vomiting no abdominal pain no diarrhea no burning with urination no frequency or urgency and no hematuria Objective - Vital Signs Vital signs: Vital Signs Temp 97.8 F 10/08/19 11:15 Pulse 110 H 10/09/19 04:00 Resp 22 10/09/19 04:00 BP 104/58 10/09/19 04:00 Pulse Ox 95 10/09/19 04:00 Intake & Output 10/08/19 10/09/19 10/09/19 18:59 06:59 18:59 Output Total 1475 550 Balance -1475 -550 Weight 115.2 kg Output: Urine 1475 550 Other: Voiding Method Urinal Urinal # Voids 1 1 - Exam HEENT head normocephalic and atraumatic Neck is supple no JVD no goiter no lymphadenopathy Chest exam reveals diffuse crackles in both lung villarreal with wheezing Cardiac exam reveals regular heart sounds S1 and S2 no gallops no murmurs Abdomen is soft nontender no organomegaly with normal bowel sounds Extremity exam reveals no edema no cyanosis or clubbing Neurological examination patient is alert and oriented 3 no focal neurological deficit - Labs CBC & Chem 7: 10/09/19 05:53 10/09/19 05:53 Labs: Abnormal Lab Results - Last 24 Hours (Table) 10/08/19 10/08/19 10/08/19 Range/Units 11:49 17:03 20:31 WBC (3.8-10.6) k/uL RBC (4.30-5.90) m/uL Hgb (13.0-17.5) gm/dL Hct (39.0-53.0) % RDW (11.5-15.5) % Neutrophils # (1.3-7.7) k/uL Lymphocytes # (1.0-4.8) k/uL Sodium (137-145) mmol/L Creatinine (0.66-1.25) mg/dL Glucose (74-99) mg/dL POC Glucose (mg/dL) 184 H 339 H 297 H (75-99) mg/dL Calcium (8.4-10.2) mg/dL Total Protein (6.3-8.2) g/dL Albumin (3.5-5.0) g/dL 10/09/19 10/09/19 10/09/19 Range/Units 05:44 05:53 05:53 WBC 11.7 H (3.8-10.6) k/uL RBC 4.00 L (4.30-5.90) m/uL Hgb 11.7 L (13.0-17.5) gm/dL Hct 35.5 L (39.0-53.0) % RDW 15.8 H (11.5-15.5) % Neutrophils # 10.4 H (1.3-7.7) k/uL Lymphocytes # 0.8 L (1.0-4.8) k/uL Sodium 133 L (137-145) mmol/L Creatinine 0.61 L (0.66-1.25) mg/dL Glucose 117 H (74-99) mg/dL POC Glucose (mg/dL) 149 H (75-99) mg/dL Calcium 8.3 L (8.4-10.2) mg/dL Total Protein 5.2 L (6.3-8.2) g/dL Albumin 2.8 L (3.5-5.0) g/dL Microbiology - Last 24 Hours (Table) 10/07/19 09:52 Blood Culture - Preliminary Blood No Growth after 24 hours 10/07/19 19:15 Gram Stain - Preliminary Sputum Sputum Culture - Preliminary Assessment and Plan Plan: 1. Shortness of breath multifactorial likely related to pneumonia, COPD exacerbation, fluid overload and atrial fibrillation with rapid ventricular response. Pulmonary service and cardiology on consult 2. Pneumonia with sepsis present on admission. Chest x-ray showing a left upper lobe and possible mild right lower lobe infiltrates. Patient given 1 dose of Rocephin in the ER and started on Zosyn and Levaquin in the ER. Patient did have a temp of 100.2 and blood pressure of 91/64. Influenza screen negative 3. Atrial fibrillation with rapid ventricular response. Currently on a Cardizem drip. Cardiology on consult 4. Patient has a known history of chronic atrial fibrillation anticoagulated with Eliquis. 5. Chest pain with Elevated troponin: Continue monitor cardiac enzymes. Cardiology on consult 6. Acute COPD exacerbation: Start IV Solu-Medrol 60 mg IV every 6 hours. Continue DuoNeb updraft treatments. Pulmonary and consult 7. Hyperthyroidism: Resume patient's Tapazole. Check TSH level. 8. Acute on Chronic diastolic CHF exacerbation. Echo from August shows an EF of 55-60%. Patient did receive 1 dose of IV Lasix in the ER. BNP 1470 9. Hyponatremia: Sodium is 130 on admission. We'll monitor 10. History of myocardial infarction with coronary artery disease and stent 11. History of seizure disorder on Keppra GI prophylaxis Protonix and DVT prophylaxis Eliquis
--- NOTE | 2019-10-09 10:42 | P.PN ---
Subjective Progress Note Date: 10/09/19 Principal diagnosis: A. 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 fib Chronic hypotension Generalized weakness Obstructive sleep apnea Hyperthyroidism 10/09/2019, patient seen eval examined during the rounds labs reviewed medications reviewed care plan discussed with the patient, shortness of breath is improved A. 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, patient has been struggling with low blood pressures generalized weakness he was discharged from the hospital and earlier September but never really recovered in the last few days has been having low blood pressure was in fact seen in the office due to low blood pressure advised to adjust the medicine, patient developed progressive increased shortness of breath 1 day before in addition is spiked a fever up to 101 blood pressure drop down to 90s, his chest x-ray is showing infiltrate in the left upper lobe and right lower lobe, patient has been started on broad-spectrum antibiotics his been admitted into the hospital with Cardizem drip and his heart rate improved from 170-110-120 he is on supplemental oxygen, he denies any chills, denies any hemoptysis, denies any bowel or bladder related problem, but does complain of severe generalized weakness and tiredness intermittent cough Objective - Vital Signs Vital signs: Vital Signs Temp 97.8 F 10/08/19 11:15 Pulse 112 H 10/09/19 07:49 Resp 22 10/09/19 04:00 BP 104/58 10/09/19 04:00 Pulse Ox 95 10/09/19 04:00 Intake & Output 10/08/19 10/09/19 10/09/19 18:59 06:59 18:59 Output Total 1475 550 Balance -1475 -550 Weight 115.2 kg Output: Urine 1475 550 Other: Voiding Method Urinal Urinal # Voids 1 1 - Exam - Constitutional General appearance: average body habitus, disheveled, mild distress - EENT Eyes: anicteric sclerae, EOMI, PERRLA ENT: normal oropharynx Ears: bilateral: normal - Neck Neck: lymphadenopathy Carotids: bilateral: upstroke normal Thyroid: bilateral: normal size - Respiratory Respiratory: bilateral: diminished, wheezing (Fine bilateral), prolonged e xpiration, negative: dullness, rales, rhonchi - Cardiovascular Rhythm: irregularly irregular Heart sounds: normal: S1, S2 - Gastrointestinal General gastrointestinal: decreased bowel sounds, soft - Neurologic Neurologic: CNII-XII intact - Musculoskeletal Musculoskeletal: gait normal, generalized weakness, strength equal bilaterally - Psychiatric Psychiatric: A&O x's 3, appropriate affect, intact judgment & insight - Labs CBC & Chem 7: 10/09/19 05:53 10/09/19 05:53 Labs: Abnormal Lab Results - Last 24 Hours (Table) 10/08/19 10/08/19 10/08/19 Range/Units 11:49 17:03 20:31 WBC (3.8-10.6) k/uL RBC (4.30-5.90) m/uL Hgb (13.0-17.5) gm/dL Hct (39.0-53.0) % RDW (11.5-15.5) % Neutrophils # (1.3-7.7) k/uL Lymphocytes # (1.0-4.8) k/uL Sodium (137-145) mmol/L Creatinine (0.66-1.25) mg/dL Glucose (74-99) mg/dL POC Glucose (mg/dL) 184 H 339 H 297 H (75-99) mg/dL Calcium (8.4-10.2) mg/dL Total Protein (6.3-8.2) g/dL Albumin (3.5-5.0) g/dL 10/09/19 10/09/19 10/09/19 Range/Units 05:44 05:53 05:53 WBC 11.7 H (3.8-10.6) k/uL RBC 4.00 L (4.30-5.90) m/uL Hgb 11.7 L (13.0-17.5) gm/dL Hct 35.5 L (39.0-53.0) % RDW 15.8 H (11.5-15.5) % Neutrophils # 10.4 H (1.3-7.7) k/uL Lymphocytes # 0.8 L (1.0-4.8) k/uL Sodium 133 L (137-145) mmol/L Creatinine 0.61 L (0.66-1.25) mg/dL Glucose 117 H (74-99) mg/dL POC Glucose (mg/dL) 149 H (75-99) mg/dL Calcium 8.3 L (8.4-10.2) mg/dL Total Protein 5.2 L (6.3-8.2) g/dL Albumin 2.8 L (3.5-5.0) g/dL Microbiology - Last 24 Hours (Table) 10/07/19 09:52 Blood Culture - Preliminary Blood No Growth after 24 hours Assessment and Plan Assessment: A. 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 fib Chronic hypotension Generalized weakness Obstructive sleep apnea Hyperthyroidism Plan: Continue IV steroids breathing treatments and broad-spectrum antibiotics Continue supportive care Prognosis is very guarded Continue CPAP each night and when necessary during the day Further recommendations pending plan of care as per clinical response of the patient Time with Patient: Greater than 30
[2019-10-09 12:09] LABS: Glucose,Whole Blood 208 mg/dL (75-99)
--- NOTE | 2019-10-09 12:50 | P.PN ---
Subjective Progress Note Date: 10/09/19 This is an 79-year-old gentleman with past medical history of coronary artery disease with prior PCI, hypertension, hyperlipidemia, paroxysmal atrial fibrillation, COPD, prior CVA, diabetes, history of prostate cancer, recurrent pneumonia, was recently in the hospital in August with COPD exacerbation and tracheobronchitis. Readmitted to the hospital on this occasion with progressively worsening shortness of breath as well as productive cough and fever. Patient had an echocardiogram with Doppler study performed in August which revealed a normal left ventricular systolic function. Chest x-ray on presentation here showed a left upper lobe and right lower lobe infiltrate. EKG on presentation here showed atrial fibrillation with a rapid ventricular response. Chest x-ray performed this morning showed a worsening left-sided pneumonia with pleural effusion. Blood pressure on arrival here 94/80 with a heart rate of 150-170, temperature 100.2, 97% on 3 L of oxygen. Blood pressure this morning 116/60 with a heart rate in the 80s. White blood cell count is normal, hemoglobin 11.8, platelet count 411. Sodium 132, potassium 3.5, BUN 9, creatinine 0.5. BNP level 1470. Trop 0.216. Influenza A and B are negative. At the time of my examination this morning, patient complains of feeling extremely weak, he continues to have a significant productive cough, continues to feel short of breath. 10/09/2019 Patient seen and examined this morning, states that his breathing is improving, continues to have peripheral edema. Blood pressure 104/50 with a heart rate in the 90s, 95% on 5 L of oxygen. White blood cell count 11.7, hemoglobin 11.7, platelet count 440. Sodium 133, potassium 3.5, BUN 13, creatinine 0.6. Objective - Vital Signs Vital signs: Vital Signs Temp 97.8 F 10/08/19 11:15 Pulse 108 H 10/09/19 11:24 Resp 22 10/09/19 04:00 BP 104/58 10/09/19 04:00 Pulse Ox 95 10/09/19 04:00 Intake & Output 10/08/19 10/09/19 10/09/19 18:59 06:59 18:59 Output Total 1475 550 Balance -1475 -550 Weight 115.2 kg Output: Urine 1475 550 Other: Voiding Method Urinal Urinal # Voids 1 1 - Exam PHYSICAL EXAMINATION: GENERAL: 79-year-old gentleman, appears weak and tired, at the time of my examination HEENT: Head is atraumatic, normocephalic. Pupils equal, round. Sclera anicteric. Conjunctiva are clear. Mucous membranes of the mouth are moist. Neck is supple. There is no elevated jugular venous pressure. No carotid bruit is heard. HEART EXAMINATION: Heart S1 and S2 irregularly irregular CHEST EXAMINATION: Lungs reveal scattered coarse rhonchi, wheezing, throughout with diminished air entry to the bases bilaterally. ABDOMEN: Soft, nontender. Bowel sounds are heard. No organomegaly noted. EXTREMITIES: 2+ peripheral pulses with evidence of peripheral edema and no calf tenderness noted. NEUROLOGIC patient is awake, alert and oriented 3 . . - Labs CBC & Chem 7: 10/09/19 05:53 10/09/19 05:53 Labs: Abnormal Lab Results - Last 24 Hours (Table) 10/08/19 10/08/19 10/09/19 Range/Units 17:03 20:31 05:44 WBC (3.8-10.6) k/uL RBC (4.30-5.90) m/uL Hgb (13.0-17.5) gm/dL Hct (39.0-53.0) % RDW (11.5-15.5) % Neutrophils # (1.3-7.7) k/uL Lymphocytes # (1.0-4.8) k/uL Sodium (137-145) mmol/L Creatinine (0.66-1.25) mg/dL Glucose (74-99) mg/dL POC Glucose (mg/dL) 339 H 297 H 149 H (75-99) mg/dL Calcium (8.4-10.2) mg/dL Total Protein (6.3-8.2) g/dL Albumin (3.5-5.0) g/dL 10/09/19 10/09/19 10/09/19 Range/Units 05:53 05:53 11:43 WBC 11.7 H (3.8-10.6) k/uL RBC 4.00 L (4.30-5.90) m/uL Hgb 11.7 L (13.0-17.5) gm/dL Hct 35.5 L (39.0-53.0) % RDW 15.8 H (11.5-15.5) % Neutrophils # 10.4 H (1.3-7.7) k/uL Lymphocytes # 0.8 L (1.0-4.8) k/uL Sodium 133 L (137-145) mmol/L Creatinine 0.61 L (0.66-1.25) mg/dL Glucose 117 H (74-99) mg/dL POC Glucose (mg/dL) 208 H (75-99) mg/dL Calcium 8.3 L (8.4-10.2) mg/dL Total Protein 5.2 L (6.3-8.2) g/dL Albumin 2.8 L (3.5-5.0) g/dL Microbiology - Last 24 Hours (Table) 10/07/19 09:52 Blood Culture - Preliminary Blood No Growth after 48 hours Assessment and Plan Plan: IMPRESSION / ASSESSMENT: #1 Acute COPD exacerbation, tracheobronchitis and evidence of worsening left- sided pneumonia #2 atrial fibrillation with a rapid ventricular response, patient has a known history of paroxysmal atrial fibrillation. TSH normal. #3 acute on chronic diastolic heart failure #4 Preserved LV systolic function by recent echo #5 History of CAD status post stenting #6 Hypertension #7 Dyslipidemia #8 diabetes #9 prior CVA #10 history of COPD Plan We will continue IV Lasix for 24 hours, check lytes BUN and creatinine in the morning. DNP note has been reviewed, I agree with a documented findings and plan of care. Patient was seen and examined.
[2019-10-09] MEDS: LEVOFLOXACIN 750MG-D5W PMX 750 MG in DEXTROSE/WATER 1 150ML.BAG IVPB SCH (13:01)
[2019-10-09] MEDS: VERAPAMIL SR 180 MG TABLET.ER PO SCH (13:01)
[2019-10-09] MEDS: FUROSEMIDE 20 MG TAB PO SCH (16:46)
[2019-10-09] MEDS: LISINOPRIL 2.5 MG TAB PO SCH (16:46)
[2019-10-09 17:00] LABS: Glucose,Whole Blood 203 mg/dL (75-99)
[2019-10-09 20:40] LABS: Glucose,Whole Blood 149 mg/dL (75-99)
[2019-10-09] MEDS: ATORVASTATIN 10 MG TAB PO SCH (21:23)
[2019-10-09] MEDS: MONTELUKAST 10 MG TAB PO SCH (21:23)
[2019-10-09] MEDS: ACETAMINOPHEN TAB 500 MG TAB PO PRN (23:25)
[2019-10-10] MEDS: methylPREDNISolone SOD SUCCI 125 MG/2 ML VIAL IV SCH ×4 (00:43→23:01)
[2019-10-10] MEDS: PIPERACILLIN-TAZOBACTAM 3.375 GM in SODIUM CHLORIDE 0.9% 100 ML IVPB SCH ×3 (05:29→19:58)
[2019-10-10 06:25] LABS: Basophils % (A) 0 %; Eosinophils # (A) 0.1 k/uL (0-0.7); Eosinophils % (A) 1 %; HCT 39.2 % (39.0-53.0); HGB 12.6 gm/dL (13.0-17.5); Lymphocytes # (A) 0.8 k/uL (1.0-4.8); Lymphocytes % (A) 6 %; MCH 28.9 pg (25.0-35.0); MCHC 32.3 g/dL (31.0-37.0); MCV 89.5 fL (80.0-100.0); Mean Platelet Volume 7.1; Monocytes # (A) 0.3 k/uL (0-1.0); Monocytes % (A) 3 %; Neutrophils # (A) 12.2 k/uL (1.3-7.7); Neutrophils % (A) 90 %; Platelet Count 382 k/uL (150-450); RBC 4.37 m/uL (4.30-5.90); RDW 15.6 % (11.5-15.5); WBC 13.6 k/uL (3.8-10.6)
[2019-10-10 06:29] LABS: Glucose,Whole Blood 222 mg/dL (75-99)
[2019-10-10 06:41] LABS: ALT 22 U/L (4-49); AST 29 U/L (17-59); African American GFR (CKD) >90 (>60 ml/min/1.73 sqM); Albumin 2.8 g/dL (3.5-5.0); Alkaline Phosphatase 72 U/L (38-126); Anion Gap 8 mmol/L; Blood Urea Nitrogen 18 mg/dL (9-20); Calcium 8.4 mg/dL (8.4-10.2); Carbon Dioxide 26 mmol/L (22-30); Chloride 98 mmol/L (98-107); Glucose 195 mg/dL (74-99); Non-African American GFR(CKD) >90 (>60 ml/min/1.73 sqM); Potassium 3.9 mmol/L (3.5-5.1); Sodium 132 mmol/L (137-145); Total Bilirubin 0.6 mg/dL (0.2-1.3); Total Protein 5.3 g/dL (6.3-8.2)
[2019-10-10] MEDS: glipiZIDE 5 MG TAB PO SCH ×3 (06:42→17:14)
[2019-10-10] MEDS: PANTOPRAZOLE 40 MG TABLET PO SCH (06:42)
[2019-10-10] MEDS: INSULIN ASPART (NovoLOG) 100 UNIT/ML VIAL SQ SCH ×4 (06:42→20:58)
[2019-10-10] MEDS: SYMBICORT 160-4.5 MCG INHALER INHALATION SCH ×2 (07:27→20:39)
[2019-10-10] MEDS: IPRATROPIUM-ALBUTEROL 3 ML NEB INHALATION SCH ×4 (07:27→20:39)
[2019-10-10] MEDS: ISOSORBIDE MONONITRATE ER 60 MG TAB.ER.24H PO SCH (08:30)
[2019-10-10] MEDS: CLOPIDOGREL 75 MG TAB PO SCH (08:30)
[2019-10-10] MEDS: levETIRAcetam 500 MG TAB PO SCH ×2 (08:30→19:57)
[2019-10-10] MEDS: APIXABAN 5 MG TAB PO SCH ×2 (08:30→19:57)
[2019-10-10] MEDS: METOPROLOL SUCCINATE (ER) 100 MG TAB.ER.24H PO SCH (08:30)
[2019-10-10] MEDS: POTASSIUM CHLORIDE ER 20 MEQ TAB.ER PO SCH (08:30)
[2019-10-10] MEDS: FUROSEMIDE 20 MG TAB PO SCH ×2 (08:30→17:14)
[2019-10-10] MEDS: ASCORBIC ACID 500 MG TAB PO SCH (08:30)
[2019-10-10] MEDS: METHIMAZOLE 5 MG TAB PO SCH (08:31)
[2019-10-10] MEDS: MULTIVITAMINS, THERA 1 EACH TAB PO SCH (08:31)
--- NOTE | 2019-10-10 10:52 | P.PN ---
Subjective Progress Note Date: 10/10/19 This is a 79-year-old male with a known history of atrial fibrillation anticoagulated with Eliquis, COPD, myocardial infarction, coronary artery disease with cardiac stent, seizure disorder and hyperthyroidism in which she was just started on Tapazole during his last hospitalization. Patient was just recently discharged earlier in September from the hospital after being treated for COPD exacerbation and bronchitis. He also at that time had A. fib with RVR and had an increase in his Lopressor and he was started on oral Cardizem. Patient reports taking all of his medications. Patient reports never fully recovering after his hospitalization. He reports having a shortness of breath and left-sided chest pain that started to worsen throughout the night. He has a productive cough at times. Chest x-ray showing left upper lobe and possible mild right lower lobe infiltrates. Temp of 100.2 BP 91/64. Lactic was normal at 1.9. Influenza screening was negative. Patient was given Rocephin Zosyn and Levaquin in the ER for his pneumonia. There is also concerns for sepsis. He and his been given IV fluids. EKG had shown atrial fibrillation with rapid ventricular response heart rate was 175. In the ER patient was started on Cardizem drip. Troponin is elevated at 0.216. Cardiology and pulmonary services are on consult. Patient denies any nausea or vomiting bowel movement changes or urinary symptoms. On 10/08/2019 patient was seen and examined on the medical floor he is alert and oriented 3 in no apparent distress he is still complaining of shortness of breath cough and wheezing otherwise he denies any complaints there is no fever or chills no headache or dizziness no chest pain no nausea or vomiting no abdominal pain no diarrhea and no urinary symptoms. On 10/09/2019 patient is alert and oriented 3 in no distress, he is still complaining of cough, wheezing, and shortness of breath with any activity otherwise he denies any complaints there is no fever or chills no headache or dizziness no chest pain no nausea or vomiting no abdominal pain no diarrhea no burning with urination no frequency or urgency and no hematuria On 10/10/2019 patient is alert and oriented 3. Patient is still having some significant wheezing and shortness of breath. Pulmonary services are following. currently maintained on Levaquin, Zosyn and Solu-Medrol. Cardiac meds also adjusted per cardiology patient having low blood pressure. Medications to be adjusted per cardiology. At this time patient denies chest pain. Patient denies nausea vomiting or diarrhea. Patient denies any urinary burning or frequency. Objective - Vital Signs Vital signs: Vital Signs Temp 97.4 F L 10/10/19 08:00 Pulse 128 H 10/10/19 08:00 Resp 22 10/10/19 08:00 BP 85/51 10/10/19 08:00 Pulse Ox 89 L 10/10/19 08:00 Intake & Output 10/09/19 10/10/19 10/10/19 18:59 06:59 18:59 Intake Total 180 Output Total 300 500 Balance -300 -500 180 Weight 87.8 kg Intake: Oral 180 Output: Urine 300 500 Other: Voiding Method Urinal Urinal Urinal # Voids 0 - Exam HEENT head normocephalic and atraumatic Neck is supple no JVD no goiter no lymphadenopathy Chest exam reveals diffuse crackles in both lung villarreal with wheezing Cardiac exam reveals regular heart sounds S1 and S2 no gallops no murmurs Abdomen is soft nontender no organomegaly with normal bowel sounds Extremity exam reveals no edema no cyanosis or clubbing Neurological examination patient is alert and oriented 3 no focal neurological deficit - Labs CBC & Chem 7: 10/10/19 06:02 10/10/19 06:02 Labs: Abnormal Lab Results - Last 24 Hours (Table) 10/09/19 10/09/19 10/09/19 Range/Units 11:43 16:56 20:38 WBC (3.8-10.6) k/uL Hgb (13.0-17.5) gm/dL RDW (11.5-15.5) % Neutrophils # (1.3-7.7) k/uL Lymphocytes # (1.0-4.8) k/uL Sodium (137-145) mmol/L Creatinine (0.66-1.25) mg/dL Glucose (74-99) mg/dL POC Glucose (mg/dL) 208 H 203 H 149 H (75-99) mg/dL Total Protein (6.3-8.2) g/dL Albumin (3.5-5.0) g/dL 10/10/19 10/10/19 10/10/19 Range/Units 06:02 06:02 06:27 WBC 13.6 H (3.8-10.6) k/uL Hgb 12.6 L (13.0-17.5) gm/dL RDW 15.6 H (11.5-15.5) % Neutrophils # 12.2 H (1.3-7.7) k/uL Lymphocytes # 0.8 L (1.0-4.8) k/uL Sodium 132 L (137-145) mmol/L Creatinine 0.65 L (0.66-1.25) mg/dL Glucose 195 H (74-99) mg/dL POC Glucose (mg/dL) 222 H (75-99) mg/dL Total Protein 5.3 L (6.3-8.2) g/dL Albumin 2.8 L (3.5-5.0) g/dL Microbiology - Last 24 Hours (Table) 10/07/19 19:15 Gram Stain - Final Sputum Sputum Culture - Final 10/07/19 09:52 Blood Culture - Preliminary Blood No Growth after 48 hours Assessment and Plan Assessment: 1. Shortness of breath multifactorial likely related to pneumonia, COPD exacerbation, fluid overload and atrial fibrillation with rapid ventricular response. Pulmonary service and cardiology on consult 2. Pneumonia with sepsis present on admission. Chest x-ray showing a left upper lobe and possible mild right lower lobe infiltrates. Patient given 1 dose of Rocephin in the ER and started on Zosyn and Levaquin in the ER. Patient did have a temp of 100.2 and blood pressure of 91/64. Influenza screen negative 3. Atrial fibrillation with rapid ventricular response. Currently on a Cardizem drip. Cardiology on consult. Cardizem drip has been DC'd. Patient started on verapamil 4. Patient has a known history of chronic atrial fibrillation anticoagulated with Eliquis. 5. Chest pain with Elevated troponin: Continue monitor cardiac enzymes. Cardiology on consult 6. Acute COPD exacerbation: Start IV Solu-Medrol 60 mg IV every 6 hours. Continue DuoNeb updraft treatments. Pulmonary and consult 7. Hyperthyroidism: Resume patient's Tapazole. Check TSH level. 8. Acute on Chronic diastolic CHF exacerbation. Echo from August shows an EF of 55-60%. Patient did receive 1 dose of IV Lasix in the ER. BNP 1470. By mouth Lasix has been ordered per cardiology 9. Hyponatremia: Sodium is 130 on admission. We'll monitor 10. History of myocardial infarction with coronary artery disease and stent 11. History of seizure disorder on Keppra GI prophylaxis Protonix and DVT prophylaxis Floridalmaquis I performed an examination of the patient and discussed their management with the Nurse Practitioner. I have reviewed the Nurse Practitioner's notes and agree with the documented findings and plan of care
--- NOTE | 2019-10-10 10:57 | XR ---
EXAMINATION TYPE: XR chest 1V portable DATE OF EXAM: 10/10/2019 COMPARISON: 10/08/2019 HISTORY: Shortness of breath TECHNIQUE: Single frontal view of the chest is obtained. FINDINGS: Shifting opacities are seen with resolution of the left-sided opacities with developing mu ltifocal right-sided opacities at the lung base and right midlung. Cardiomediastinal silhouette is en larged. Small bilateral layering pleural effusions. Numerous metallic ballistic artifacts are seen ov er the left chest. Degenerative changes of the spine and shoulders are noted. IMPRESSION: Shifting opacities with resolution of the left-sided opacities with development of right -sided opacities. Multifocal pneumonia or shifting atelectasis are considerations. Slightly increased small bilateral pleural effusions.
[2019-10-10 11:55] LABS: Glucose,Whole Blood 255 mg/dL (75-99)
[2019-10-10] MEDS: VERAPAMIL SR 180 MG TABLET.ER PO SCH (12:07)
--- NOTE | 2019-10-10 13:42 | P.PN ---
Subjective Progress Note Date: 10/10/19 This is an 79-year-old gentleman with past medical history of coronary artery disease with prior PCI, hypertension, hyperlipidemia, paroxysmal atrial fibrillation, COPD, prior CVA, diabetes, history of prostate cancer, recurrent pneumonia, was recently in the hospital in August with COPD exacerbation and tracheobronchitis. Readmitted to the hospital on this occasion with progressively worsening shortness of breath as well as productive cough and fever. Patient had an echocardiogram with Doppler study performed in August which revealed a normal left ventricular systolic function. Chest x-ray on presentation here showed a left upper lobe and right lower lobe infiltrate. EKG on presentation here showed atrial fibrillation with a rapid ventricular response. Chest x-ray performed this morning showed a worsening left-sided pneumonia with pleural effusion. Blood pressure on arrival here 94/80 with a heart rate of 150-170, temperature 100.2, 97% on 3 L of oxygen. Blood pressure this morning 116/60 with a heart rate in the 80s. White blood cell count is normal, hemoglobin 11.8, platelet count 411. Sodium 132, potassium 3.5, BUN 9, creatinine 0.5. BNP level 1470. Trop 0.216. Influenza A and B are negative. At the time of my examination this morning, patient complains of feeling extremely weak, he continues to have a significant productive cough, continues to feel short of breath. 10/09/2019 Patient seen and examined this morning, states that his breathing is improving, continues to have peripheral edema. Blood pressure 104/50 with a heart rate in the 90s, 95% on 5 L of oxygen. White blood cell count 11.7, hemoglobin 11.7, platelet count 440. Sodium 133, potassium 3.5, BUN 13, creatinine 0.6. 10/10/2019 Patient was seen and examined this morning, complaining of feeling a little more short of breath today. Stat chest x-ray requested. X-ray showed development of right sided obesity, multifocal pneumonia a possibility. Blood pressure today running in the 80s systolic. Heart rate 120. White blood cell count 13.6, hemoglobin 12.6, platelet count 382. Sodium 132, potassium 3.9, BUN 18, creatinine 0.6. Objective - Vital Signs Vital signs: Vital Signs Temp 97.5 F L 10/10/19 10:41 Pulse 104 H 10/10/19 11:23 Resp 20 10/10/19 10:41 BP 75/52 10/10/19 10:41 Pulse Ox 91 L 10/10/19 10:41 Intake & Output 10/09/19 10/10/19 10/10/19 18:59 06:59 18:59 Intake Total 180 Output Total 300 500 Balance -300 -500 180 Weight 87.8 kg Intake: Oral 180 Output: Urine 300 500 Other: Voiding Method Urinal Urinal Urinal # Voids 0 - Exam PHYSICAL EXAMINATION: GENERAL: 79-year-old gentleman, appears weak and tired, at the time of my examination HEENT: Head is atraumatic, normocephalic. Pupils equal, round. Sclera anicteric. Conjunctiva are clear. Mucous membranes of the mouth are moist. Neck is supple. There is no elevated jugular venous pressure. No carotid bruit is heard. HEART EXAMINATION: Heart S1 and S2 irregularly irregular CHEST EXAMINATION: Lungs reveal scattered coarse rhonchi, wheezing, throughout with diminished air entry to the bases bilaterally. ABDOMEN: Soft, nontender. Bowel sounds are heard. No organomegaly noted. EXTREMITIES: 2+ peripheral pulses with evidence of peripheral edema and no calf tenderness noted. NEUROLOGIC patient is awake, alert and oriented 3 . . - Labs CBC & Chem 7: 10/10/19 06:02 10/10/19 06:02 Labs: Abnormal Lab Results - Last 24 Hours (Table) 10/09/19 10/09/19 10/10/19 Range/Units 16:56 20:38 06:02 WBC 13.6 H (3.8-10.6) k/uL Hgb 12.6 L (13.0-17.5) gm/dL RDW 15.6 H (11.5-15.5) % Neutrophils # 12.2 H (1.3-7.7) k/uL Lymphocytes # 0.8 L (1.0-4.8) k/uL Sodium (137-145) mmol/L Creatinine (0.66-1.25) mg/dL Glucose (74-99) mg/dL POC Glucose (mg/dL) 203 H 149 H (75-99) mg/dL Total Protein (6.3-8.2) g/dL Albumin (3.5-5.0) g/dL 10/10/19 10/10/19 10/10/19 Range/Units 06:02 06:27 11:47 WBC (3.8-10.6) k/uL Hgb (13.0-17.5) gm/dL RDW (11.5-15.5) % Neutrophils # (1.3-7.7) k/uL Lymphocytes # (1.0-4.8) k/uL Sodium 132 L (137-145) mmol/L Creatinine 0.65 L (0.66-1.25) mg/dL Glucose 195 H (74-99) mg/dL POC Glucose (mg/dL) 222 H 255 H (75-99) mg/dL Total Protein 5.3 L (6.3-8.2) g/dL Albumin 2.8 L (3.5-5.0) g/dL Microbiology - Last 24 Hours (Table) 10/07/19 09:52 Blood Culture - Preliminary Blood No Growth after 72 hours 10/07/19 19:15 Gram Stain - Final Sputum Sputum Culture - Final Assessment and Plan Plan: IMPRESSION / ASSESSMENT: #1 Acute COPD exacerbation, tracheobronchitis and evidence of worsening left- sided pneumonia #2 atrial fibrillation with a rapid ventricular response, patient has a known history of paroxysmal atrial fibrillation. TSH normal. #3 acute on chronic diastolic heart failure #4 Preserved LV systolic function by recent echo #5 History of CAD status post stenting #6 Hypertension #7 Dyslipidemia #8 diabetes #9 prior CVA #10 history of COPD Plan Patient is currently on oral diuretics. Chest x-ray suggests more of a pneumonia picture. We will the antihypertensive medications, and hold for systolic less than 90. We will also request a pro calcitonin level. DNP note has been reviewed, I agree with a documented findings and plan of care. Patient was seen and examined.
--- NOTE | 2019-10-10 13:54 | P.PN ---
Subjective Progress Note Date: 10/10/19 Principal diagnosis: A. 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 fib Chronic hypotension Generalized weakness Obstructive sleep apnea Hyperthyroidism 10/10/2019, patient seen eval examined during the rounds patient has been using CPAP machine now, cough congestion shortness breath is improved, his chest x-ray from today showing improvement in infiltrate on the left side some infiltrate on right base has been noted, patient has been getting bronchodilators as well as steroids and broad-spectrum antibiotics, now afebrile heart rate is improved now blood pressure is still marginal, on 5 L oxygen saturation is 90-92% 10/09/2019, patient seen eval examined during the rounds labs reviewed medications reviewed care plan discussed with the patient, shortness of breath is improved A. 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, patient has been struggling with low blood pressures generalized weakness he was discharged from the hospital and earlier September but never really recovered in the last few days has been having low blood pressure was in fact seen in the office due to low blood pressure advised to adjust the medicine, patient developed progressive increased shortness of breath 1 day before in addition is spiked a fever up to 101 blood pressure drop down to 90s, his chest x-ray is showing i nfiltrate in the left upper lobe and right lower lobe, patient has been started on broad-spectrum antibiotics his been admitted into the hospital with Cardizem drip and his heart rate improved from 170-110-120 he is on supplemental oxygen, he denies any chills, denies any hemoptysis, denies any bowel or bladder related problem, but does complain of severe generalized weakness and tiredness intermi ttent cough Objective - Vital Signs Vital signs: Vital Signs Temp 97.5 F L 10/10/19 10:41 Pulse 104 H 10/10/19 11:23 Resp 20 10/10/19 10:41 BP 75/52 10/10/19 10:41 Pulse Ox 91 L 10/10/19 10:41 Intake & Output 10/09/19 10/10/19 10/10/19 18:59 06:59 18:59 Intake Total 180 Output Total 300 500 Balance -300 -500 180 Weight 87.8 kg Intake: Oral 180 Output: Urine 300 500 Other: Voiding Method Urinal Urinal Urinal # Voids 0 - Exam - Constitutional General appearance: average body habitus, disheveled, mild distress - EENT Eyes: anicteric sclerae, EOMI, PERRLA ENT: normal oropharynx Ears: bilateral: normal - Neck Neck: lymphadenopathy Carotids: bilateral: upstroke normal Thyroid: bilateral: normal size - Respiratory Respiratory: bilateral: diminished, wheezing (Fine bilateral), prolonged expiration, negative: dullness, rales, rhonchi - Cardiovascular Rhythm: irregularly irregular Heart sounds: normal: S1, S2 - Gastrointestinal General gastrointestinal: decreased bowel sounds, soft - Neurologic Neurologic: CNII-XII intact - Musculoskeletal Musculoskeletal: gait normal, generalized weakness, strength equal bilaterally - Psychiatric Psychiatric: A&O x's 3, appropriate affect, intact judgment & insight - Labs CBC & Chem 7: 10/10/19 06:02 10/10/19 06:02 Labs: Abnormal Lab Results - Last 24 Hours (Table) 10/09/19 10/09/19 10/10/19 Range/Units 16:56 20:38 06:02 WBC 13.6 H (3.8-10.6) k/uL Hgb 12.6 L (13.0-17.5) gm/dL RDW 15.6 H (11.5-15.5) % Neutrophils # 12.2 H (1.3-7.7) k/uL Lymphocytes # 0.8 L (1.0-4.8) k/uL Sodium (137-145) mmol/L Creatinine (0.66-1.25) mg/dL Glucose (74-99) mg/dL POC Glucose (mg/dL) 203 H 149 H (75-99) mg/dL Total Protein (6.3-8.2) g/dL Albumin (3.5-5.0) g/dL 02/10/10/19 10/10/19 Range/Units 06:02 06:27 11:47 WBC (3.8-10.6) k/uL Hgb (13.0-17.5) gm/dL RDW (11.5-15.5) % Neutrophils # (1.3-7.7) k/uL Lymphocytes # (1.0-4.8) k/uL Sodium 132 L (137-145) mmol/L Creatinine 0.65 L (0.66-1.25) mg/dL Glucose 195 H (74-99) mg/dL POC Glucose (mg/dL) 222 H 255 H (75-99) mg/dL Total Protein 5.3 L (6.3-8.2) g/dL Albumin 2.8 L (3.5-5.0) g/dL Microbiology - Last 24 Hours (Table) 10/07/19 09:52 Blood Culture - Preliminary Blood No Growth after 72 hours 10/07/19 19:15 Gram Stain - Final Sputum Sputum Culture - Final Assessment and Plan Assessment: A. 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 fib Chronic hypotension Generalized weakness Obstructive sleep apnea Hyperthyroidism Plan: Continue IV steroids breathing treatments and broad-spectrum antibiotics Continue diuresis Continue supportive care Prognosis is very guarded Continue CPAP each night and when necessary during the day Further recommendations pending plan of care as per clinical response of the patient Time with Patient: Greater than 30
[2019-10-10] MEDS: LISINOPRIL 2.5 MG TAB PO SCH (16:54)
[2019-10-10 17:14] LABS: Glucose,Whole Blood 197 mg/dL (75-99)
[2019-10-10] MEDS: LEVOFLOXACIN 750MG-D5W PMX 750 MG in DEXTROSE/WATER 1 150ML.BAG IVPB SCH (17:14)
[2019-10-10] MEDS: ATORVASTATIN 10 MG TAB PO SCH (19:57)
[2019-10-10] MEDS: MONTELUKAST 10 MG TAB PO SCH (19:58)
[2019-10-10 20:43] LABS: Glucose,Whole Blood 199 mg/dL (75-99)
[2019-10-11] MEDS ORDERED: METOPROLOL TARTRATE 50 MG TAB PO STA (00:04)
[2019-10-11] MEDS: IPRATROPIUM-ALBUTEROL 3 ML NEB INHALATION PRN (02:18)
[2019-10-11] MEDS: PIPERACILLIN-TAZOBACTAM 3.375 GM in SODIUM CHLORIDE 0.9% 100 ML IVPB SCH ×3 (03:58→20:46)
[2019-10-11] MEDS: ACETAMINOPHEN TAB 500 MG TAB PO PRN ×2 (04:55→18:56)
[2019-10-11 06:16] LABS: Glucose,Whole Blood 219 mg/dL (75-99)
[2019-10-11] MEDS: PANTOPRAZOLE 40 MG TABLET PO SCH (06:24)
[2019-10-11] MEDS: INSULIN ASPART (NovoLOG) 100 UNIT/ML VIAL SQ SCH ×4 (06:24→20:46)
[2019-10-11] MEDS: glipiZIDE 5 MG TAB PO SCH ×3 (06:24→17:13)
[2019-10-11] MEDS ORDERED: FUROSEMIDE 10 MG/ML 2 ML VIAL IV ONE (06:26)
[2019-10-11 06:31] LABS: Basophils % (A) 0 %; Eosinophils # (A) 0.1 k/uL (0-0.7); Eosinophils % (A) 1 %; HCT 40.6 % (39.0-53.0); HGB 13.2 gm/dL (13.0-17.5); Lymphocytes # (A) 0.6 k/uL (1.0-4.8); Lymphocytes % (A) 4 %; MCHC 32.5 g/dL (31.0-37.0); MCV 89.3 fL (80.0-100.0); Mean Platelet Volume 6.9; Monocytes # (A) 0.4 k/uL (0-1.0); Monocytes % (A) 2 %; Neutrophils # (A) 16.7 k/uL (1.3-7.7); Neutrophils % (A) 93 %; Platelet Count 400 k/uL (150-450); RBC 4.55 m/uL (4.30-5.90); RDW 15.6 % (11.5-15.5)
[2019-10-11 06:37] LABS: ALT 21 U/L (4-49); AST 30 U/L (17-59); African American GFR (CKD) >90 (>60 ml/min/1.73 sqM); Albumin 2.8 g/dL (3.5-5.0); Alkaline Phosphatase 77 U/L (38-126); Anion Gap 10 mmol/L; Blood Urea Nitrogen 16 mg/dL (9-20); Calcium 8.3 mg/dL (8.4-10.2); Carbon Dioxide 26 mmol/L (22-30); Chloride 96 mmol/L (98-107); Glucose 208 mg/dL (74-99); Non-African American GFR(CKD) >90 (>60 ml/min/1.73 sqM); Potassium 4.2 mmol/L (3.5-5.1); Sodium 132 mmol/L (137-145); Total Bilirubin 0.6 mg/dL (0.2-1.3); Total Protein 5.5 g/dL (6.3-8.2)
[2019-10-11] MEDS: SYMBICORT 160-4.5 MCG INHALER INHALATION SCH ×2 (08:46→20:06)
[2019-10-11] MEDS: IPRATROPIUM-ALBUTEROL 3 ML NEB INHALATION SCH ×4 (08:46→20:06)
[2019-10-11] MEDS: ISOSORBIDE MONONITRATE ER 60 MG TAB.ER.24H PO SCH (09:20)
[2019-10-11] MEDS: METOPROLOL SUCCINATE (ER) 100 MG TAB.ER.24H PO SCH (09:20)
[2019-10-11] MEDS: POTASSIUM CHLORIDE ER 20 MEQ TAB.ER PO SCH (09:20)
[2019-10-11] MEDS: MULTIVITAMINS, THERA 1 EACH TAB PO SCH (09:21)
[2019-10-11] MEDS: ASCORBIC ACID 500 MG TAB PO SCH (09:21)
[2019-10-11] MEDS: APIXABAN 5 MG TAB PO SCH ×2 (09:21→20:46)
[2019-10-11] MEDS: FUROSEMIDE 20 MG TAB PO SCH ×2 (09:22→17:12)
[2019-10-11] MEDS: CLOPIDOGREL 75 MG TAB PO SCH (09:22)
[2019-10-11] MEDS: methylPREDNISolone SOD SUCCI 125 MG/2 ML VIAL IV SCH ×3 (09:22→23:16)
[2019-10-11] MEDS: levETIRAcetam 500 MG TAB PO SCH ×2 (09:22→20:46)
[2019-10-11] MEDS: METHIMAZOLE 5 MG TAB PO SCH (10:38)
[2019-10-11] MEDS: VERAPAMIL SR 180 MG TABLET.ER PO SCH (10:38)
[2019-10-11 11:56] LABS: Glucose,Whole Blood 190 mg/dL (75-99)
[2019-10-11] MEDS ORDERED: DEXTROSE 5% IN WATER 100 ML with AMIODARONE 150 MG IV ONE (12:00)
[2019-10-11] MEDS ORDERED: AMIODARONE 360 MG in DEXTROSE 5% IN WATER 200 ML IV ONE ×2 (12:00)
--- NOTE | 2019-10-11 12:07 | P.PN ---
Subjective Progress Note Date: 10/11/19 This is a 79-year-old male with a known history of atrial fibrillation anticoagulated with Eliquis, COPD, myocardial infarction, coronary artery disease with cardiac stent, seizure disorder and hyperthyroidism in which she was just started on Tapazole during his last hospitalization. Patient was just recently discharged earlier in September from the hospital after being treated for COPD exacerbation and bronchitis. He also at that time had A. fib with RVR and had an increase in his Lopressor and he was started on oral Cardizem. Patient reports taking all of his medications. Patient reports never fully recovering after his hospitalization. He reports having a shortness of breath and left-sided chest pain that started to worsen throughout the night. He has a productive cough at times. Chest x-ray showing left upper lobe and possible mild right lower lobe infiltrates. Temp of 100.2 BP 91/64. Lactic was normal at 1.9. Influenza screening was negative. Patient was given Rocephin Zosyn and Levaquin in the ER for his pneumonia. There is also concerns for sepsis. He and his been given IV fluids. EKG had shown atrial fibrillation with rapid ventricular response heart rate was 175. In the ER patient was started on Cardizem drip. Troponin is elevated at 0.216. Cardiology and pulmonary services are on consult. Patient denies any nausea or vomiting bowel movement changes or urinary symptoms. On 10/08/2019 patient was seen and examined on the medical floor he is alert and oriented 3 in no apparent distress he is still complaining of shortness of breath cough and wheezing otherwise he denies any complaints there is no fever or chills no headache or dizziness no chest pain no nausea or vomiting no abdominal pain no diarrhea and no urinary symptoms. On 10/09/2019 patient is alert and oriented 3 in no distress, he is still complaining of cough, wheezing, and shortness of breath with any activity otherwise he denies any complaints there is no fever or chills no headache or dizziness no chest pain no nausea or vomiting no abdominal pain no diarrhea no burning with urination no frequency or urgency and no hematuria On 10/10/2019 patient is alert and oriented 3. Patient is still having some significant wheezing and shortness of breath. Pulmonary services are following. currently maintained on Levaquin, Zosyn and Solu-Medrol. Cardiac meds also adjusted per cardiology patient having low blood pressure. Medications to be adjusted per cardiology. At this time patient denies chest pain. Patient denies nausea vomiting or diarrhea. Patient denies any urinary burning or frequency. On 10/11/2019 patient is alert and oriented 3. Patient remains short of breath. Heart rate remains elevated cardiology and pulmonary services are following. Patient has been started on amiodarone. Patient remains on Solu- Medrol, Levaquin and Zosyn. Pulmonary services are following. Patient remains on eliquis for anticoagulation. At this time patient denies chest pain. Patient denies nausea vomiting or diarrhea. Patient denies any urinary burning or frequency Objective - Vital Signs Vital signs: Vital Signs Temp 97.4 F L 10/11/19 08:59 Pulse 128 H 10/11/19 11:55 Resp 18 10/11/19 11:53 BP 91/60 10/11/19 11:53 Pulse Ox 90 L 10/11/19 11:53 Intake & Output 10/10/19 10/11/19 10/11/19 18:59 06:59 18:59 Intake Total 1482 120 Output Total 850 690 Balance 1482 -850 -570 Intake: Intake, IV Titration 300 Amount Levofloxacin 750Mg-D5w 100 Pmx 750 mg In Dextrose/ Water 1 150ml.bag @ 100 mls/hr IVPB Q24H [facility] Rx#: [id number] Piperacillin-Tazobactam 3 200 .375 gm In Sodium Chloride 0.9% 100 ml @ 25 mls/hr IVPB Q8H [facility] Rx#: [id number] Oral 1182 120 Output: Urine 850 690 Other: Voiding Method Urinal Urinal # Voids 3 1 - Exam HEENT head normocephalic and atraumatic Neck is supple no JVD no goiter no lymphadenopathy Chest exam reveals diffuse crackles in both lung villarreal with wheezing Cardiac exam reveals regular heart sounds S1 and S2 no gallops no murmurs Abdomen is soft nontender no organomegaly with normal bowel sounds Extremity exam reveals no edema no cyanosis or clubbing Neurological examination patient is alert and oriented 3 no focal neurological deficit - Labs CBC & Chem 7: 10/11/19 06:03 10/11/19 06:03 Labs: Abnormal Lab Results - Last 24 Hours (Table) 10/10/19 10/10/19 10/11/19 Range/Units 16:56 20:41 06:03 WBC 18.0 H (3.8-10.6) k/uL RDW 15.6 H (11.5-15.5) % Neutrophils # 16.7 H (1.3-7.7) k/uL Lymphocytes # 0.6 L (1.0-4.8) k/uL Sodium (137-145) mmol/L Chloride (98-107) mmol/L Creatinine (0.66-1.25) mg/dL Glucose (74-99) mg/dL POC Glucose (mg/dL) 197 H 199 H (75-99) mg/dL Calcium (8.4-10.2) mg/dL Total Protein (6.3-8.2) g/dL Albumin (3.5-5.0) g/dL 10/11/19 10/11/19 10/11/19 Range/Units 06:03 06:09 11:47 WBC (3.8-10.6) k/uL RDW (11.5-15.5) % Neutrophils # (1.3-7.7) k/uL Lymphocytes # (1.0-4.8) k/uL Sodium 132 L (137-145) mmol/L Chloride 96 L (98-107) mmol/L Creatinine 0.61 L (0.66-1.25) mg/dL Glucose 208 H (74-99) mg/dL POC Glucose (mg/dL) 219 H 190 H (75-99) mg/dL Calcium 8.3 L (8.4-10.2) mg/dL Total Protein 5.5 L (6.3-8.2) g/dL Albumin 2.8 L (3.5-5.0) g/dL Microbiology - Last 24 Hours (Table) 10/07/19 09:52 Blood Culture - Preliminary Blood No Growth after 72 hours 10/07/19 19:15 Gram Stain - Final Sputum Sputum Culture - Final Assessment and Plan Assessment: 1. Shortness of breath multifactorial likely related to pneumonia, COPD exacerbation, fluid overload and atrial fibrillation with rapid ventricular r esponse. Pulmonary service and cardiology on consult 2. Pneumonia with sepsis present on admission. Chest x-ray showing a left upper lobe and possible mild right lower lobe infiltrates. Patient given 1 dose of Rocephin in the ER and started on Zosyn and Levaquin in the ER. Patient did have a temp of 100.2 and blood pressure of 91/64. Influenza screen negative. Pulmonary services are following. Patient remains on Solu-Medrol, Zosyn and Levaquin. Sputum cultures currently showing no growth 3. Atrial fibrillation with rapid ventricular response. Currently on a Cardizem drip. Cardiology on consult. Cardizem drip has been DC'd. Patient started on verapamil. She was started on amiodarone drip per cardiology 4. Patient has a known history of chronic atrial fibrillation anticoagulated with Eliquis. 5. Chest pain with Elevated troponin: Continue monitor cardiac enzymes. Car diology on consult 6. Acute COPD exacerbation: Start IV Solu-Medrol 60 mg IV every 6 hours. Luisa [facility] [employer] updraft treatments. Pulmonary services consulted 7. Hyperthyroidism: Resume patient's Tapazole. Check TSH level. 8. Acute on Chronic diastolic CHF exacerbation. Echo from August shows an EF of 55-60%. Patient did receive 1 dose of IV Lasix in the ER. BNP 1470. By mouth Lasix has been ordered per cardiology 9. Hyponatremia: Sodium is 130 on admission. We'll monitor 10. History of myocardial infarction with coronary artery disease and stent 11. History of seizure disorder on Keppra GI prophylaxis Protonix and DVT prophylaxis Eliquis Pulmonary cardiology services are following Patient remains on IV Solu-Medrol, updraft breathing treatments, Zosyn and Levaquin I performed an examination of the patient and discussed their management with the Nurse Practitioner. I have reviewed the Nurse Practitioner's notes and agree with the documented findings and plan of care
[2019-10-11] MEDS: LEVOFLOXACIN 750 MG TAB PO SCH (12:47)
[2019-10-11] MEDS ORDERED: FUROSEMIDE 10 MG/ML 4 ML VIAL IV STA (13:30)
--- NOTE | 2019-10-11 13:31 | P.PN ---
Subjective Progress Note Date: 10/11/19 This is an 79-year-old gentleman with past medical history of coronary artery disease with prior PCI, hypertension, hyperlipidemia, paroxysmal atrial fibrillation, COPD, prior CVA, diabetes, history of prostate cancer, recurrent pneumonia, was recently in the hospital in August with COPD exacerbation and tracheobronchitis. Readmitted to the hospital on this occasion with progressively worsening shortness of breath as well as productive cough and fever. Patient had an echocardiogram with Doppler study performed in August which revealed a normal left ventricular systolic function. Chest x-ray on presentation here showed a left upper lobe and right lower lobe infiltrate. EKG on presentation here showed atrial fibrillation with a rapid ventricular response. Chest x-ray performed this morning showed a worsening left-sided pneumonia with pleural effusion. Blood pressure on arrival here 94/80 with a heart rate of 150-170, temperature 100.2, 97% on 3 L of oxygen. Blood pressure this morning 116/60 with a heart rate in the 80s. White blood cell count is normal, hemoglobin 11.8, platelet count 411. Sodium 132, potassium 3.5, BUN 9, creatinine 0.5. BNP level 1470. Trop 0.216. Influenza A and B are negative. At the time of my examination this morning, patient complains of feeling extremely weak, he continues to have a significant productive cough, continues to feel short of breath. 10/09/2019 Patient seen and examined this morning, states that his breathing is improving, continues to have peripheral edema. Blood pressure 104/50 with a heart rate in the 90s, 95% on 5 L of oxygen. White blood cell count 11.7, hemoglobin 11.7, platelet count 440. Sodium 133, potassium 3.5, BUN 13, creatinine 0.6. 10/10/2019 Patient was seen and examined this morning, complaining of feeling a little more short of breath today. Stat chest x-ray requested. X-ray showed development of right sided obesity, multifocal pneumonia a possibility. Blood pressure today running in the 80s systolic. Heart rate 120. White blood cell count 13.6, hemoglobin 12.6, platelet count 382. Sodium 132, potassium 3.9, BUN 18, creatinine 0.6. 2019 Patient was seen and examined this morning, his heart rate was up in the 120 to 130 range. Patient continues to be hypotensive. We will stop the verapamil and start the patient on IV amiodarone. His pro calcitonin level came back at 0.03. We will give the patient one time dose of IV Lasix. Objective - Vital Signs Vital signs: Vital Signs Temp 97.4 F L 10/11/19 08:59 Pulse 133 H 10/11/19 12:53 Resp 18 10/11/19 11:53 BP 80/57 10/11/19 12:53 Pulse Ox 90 L 10/11/19 11:53 Intake & Output 10/10/19 10/11/19 10/11/19 18:59 06:59 18:59 Intake Total 1482 120 Output Total 850 690 Balance 1482 850 570 Intake: Intake, IV Titration 300 Amount Levofloxacin 750Mg-D5w 100 Pmx 750 mg In Dextrose/ Water 1 150ml.bag @ 100 mls/hr IVPB Q24H [facility] Rx#: [id number] Piperacillin-Tazobactam 3 200 .375 gm In Sodium Chloride 0.9% 100 ml @ 25 mls/hr IVPB Q8H [facility] Rx#: [id number] Oral 1182 120 Output: Urine 850 690 Other: Voiding Method Urinal Urinal # Voids 3 1 - Exam PHYSICAL EXAMINATION: GENERAL: 79-year-old gentleman, appears weak and tired, at the time of my examination HEENT: Head is atraumatic, normocephalic. Pupils equal, round. Sclera anicteric. Conjunctiva are clear. Mucous membranes of the mouth are moist. Neck is supple. There is no elevated jugular venous pressure. No carotid bruit is heard. HEART EXAMINATION: Heart S1 and S2 irregularly irregular CHEST EXAMINATION: Lungs reveal scattered coarse rhonchi, wheezing, throughout with diminished air entry to the bases bilaterally. ABDOMEN: Soft, nontender. Bowel sounds are heard. No organomegaly noted. EXTREMITIES: 2+ peripheral pulses with evidence of peripheral edema and no calf tenderness noted. NEUROLOGIC patient is awake, alert and oriented 3 . . - Labs CBC & Chem 7: 10/11/19 06:03 10/11/19 06:03 Labs: Abnormal Lab Results - Last 24 Hours (Table) 10/10/19 10/10/19 10/11/19 Range/Units 16:56 20:41 06:03 WBC 18.0 H (3.8-10.6) k/uL RDW 15.6 H (11.5-15.5) % Neutrophils # 16.7 H (1.3-7.7) k/uL Lymphocytes # 0.6 L (1.0-4.8) k/uL Sodium (137-145) mmol/L Chloride (98-107) mmol/L Creatinine (0.66-1.25) mg/dL Glucose (74-99) mg/dL POC Glucose (mg/dL) 197 H 199 H (75-99) mg/dL Calcium (8.4-10.2) mg/dL Total Protein (6.3-8.2) g/dL Albumin (3.5-5.0) g/dL 10/11/19 10/11/19 10/11/19 Range/Units 06:03 06:09 11:47 WBC (3.8-10.6) k/uL RDW (11.5-15.5) % Neutrophils # (1.3-7.7) k/uL Lymphocytes # (1.0-4.8) k/uL Sodium 132 L (137-145) mmol/L Chloride 96 L (98-107) mmol/L Creatinine 0.61 L (0.66-1.25) mg/dL Glucose 208 H (74-99) mg/dL POC Glucose (mg/dL) 219 H 190 H (75-99) mg/dL Calcium 8.3 L (8.4-10.2) mg/dL Total Protein 5.5 L (6.3-8.2) g/dL Albumin 2.8 L (3.5-5.0) g/dL Microbiology - Last 24 Hours (Table) 10/07/19 09:52 Blood Culture - Preliminary Blood No Growth after 96 hours 10/07/19 19:15 Gram Stain - Final Sputum Sputum Culture - Final Assessment and Plan Plan: IMPRESSION / ASSESSMENT: #1 Acute COPD exacerbation, tracheobronchitis and evidence of worsening left- sided pneumonia #2 atrial fibrillation with a rapid ventricular response, patient has a known history of paroxysmal atrial fibrillation. TSH normal. #3 acute on chronic diastolic heart failure #4 Preserved LV systolic function by recent echo #5 History of CAD status post stenting #6 Hypertension #7 Dyslipidemia #8 diabetes #9 prior CVA #10 history of COPD Plan We will discontinue the oral verapamil, give the patient one time dose of IV Lasix. Start the patient on IV amiodarone drip. DNP note has been reviewed, I agree with a documented findings and plan of care. Patient was seen and examined.
--- NOTE | 2019-10-11 15:59 | P.PN ---
Subjective Progress Note Date: 10/11/19 Principal diagnosis: A. 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 fib Chronic hypotension Generalized weakness Obstructive sleep apnea Hyperthyroidism 10/11/2019, patient seen eval examined during the rounds labs reviewed medications reviewed shortness of breath cough congestion is slightly better now, patient underwent a midline placement shortness of breath still there but severity has improved patient is back on amiodarone, continue steroids continue anticoagulation follow clinical course closely blood pressure remains on the low side 10/10/2019, patient seen eval examined during the rounds patient has been using CPAP machine now, cough congestion shortness breath is improved, his chest x-ray from today showing improvement in infiltrate on the left side some infiltrate on right base has been noted, patient has been getting bronchodilators as well as steroids and broad-spectrum antibiotics, now afebrile heart rate is improved now blood pressure is still marginal, on 5 L oxygen saturation is 90-92% 10/09/2019, patient seen eval examined during the rounds labs reviewed medications reviewed care plan discussed with the patient, shortness of breath is improved A. 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, patient has been struggling with low blood pressures generalized weakness he was discharged from the hospital and earlier September but never really recovered in the last few days has been having low blood pressure was in fact seen in the office due to low blood pressure advised to adjust the medicine, patient developed progressive increased shortness of breath 1 day before in addition is spiked a fever up to 101 blood pressure drop down to 90s, his chest x-ray is showing infiltrate in the left upper lobe and right lower lobe, patient has been started on broad-spectrum antibiotics his been admitted into the hospital with Cardizem drip and his heart rate improved from 170-110-120 he is on supplemental oxygen, he denies any chills, denies any hemoptysis, denies any bowel or bladder related problem, but does complain of severe generalized weakness and tiredness intermittent cough Objective - Vital Signs Vital signs: Vital Signs Temp 97.4 F L 10/11/19 08:59 Pulse 123 H 10/11/19 15:47 Resp 16 10/11/19 13:42 BP 106/62 10/11/19 13:42 Pulse Ox 92 L 10/11/19 13:42 Intake & Output 10/10/19 10/11/19 10/11/19 18:59 06:59 18:59 Intake Total 1482 480 Output Total 850 1090 Balance 1772 -475 -610 Intake: Intake, IV Titration 300 Amount Levofloxacin 750Mg-D5w 100 Pmx 750 mg In Dextrose/ Water 1 150ml.bag @ 100 mls/hr IVPB Q24H REPLACED BY [facility] Rx#: [id number] Piperacillin-Tazobactam 3 200 .375 gm In Sodium Chloride 0.9% 100 ml @ 25 mls/hr IVPB Q8H [facility] Rx#: [id number] Oral 1182 480 Output: Urine 850 1090 Other: Voiding Method Urinal Urinal Urinal # Voids 3 1 - Exam - Constitutional General appearance: average body habitus, disheveled, mild distress - EENT Eyes: anicteric sclerae, EOMI, PERRLA ENT: normal oropharynx Ears: bilateral: normal - Neck Neck: lymphadenopathy Carotids: bilateral: upstroke normal Thyroid: bilateral: normal size - Respiratory Respiratory: bilateral: diminished, wheezing (Fine bilateral), prolonged expiration, negative: dullness, rales, rhonchi - Cardiovascular Rhythm: irregularly irregular Heart sounds: normal: S1, S2 - Gastrointestinal General gastrointestinal: decreased bowel sounds, soft - Neurologic Neurologic: CNII-XII intact - Musculoskeletal Musculoskeletal: gait normal, generalized weakness, strength equal bilaterally - Psychiatric Psychiatric: A&O x's 3, appropriate affect, intact judgment & insight - Labs CBC & Chem 7: 10/11/19 06:03 10/11/19 06:03 Labs: Abnormal Lab Results - Last 24 Hours (Table) 10/10/19 10/10/19 10/11/19 Range/Units 16:56 20:41 06:03 WBC 18.0 H (3.8-10.6) k/uL RDW 15.6 H (11.5-15.5) % Neutrophils # 16.7 H (1.3-7.7) k/uL Lymphocytes # 0.6 L (1.0-4.8) k/uL Sodium (137-145) mmol/L Chloride (98-107) mmol/L Creatinine (0.66-1.25) mg/dL Glucose (74-99) mg/dL POC Glucose (mg/dL) 197 H 199 H (75-99) mg/dL Calcium (8.4-10.2) mg/dL Total Protein (6.3-8.2) g/dL Albumin (3.5-5.0) g/dL 10/11/19 10/11/19 10/11/19 Range/Units 06:03 06:09 11:47 WBC (3.8-10.6) k/uL RDW (11.5-15.5) % Neutrophils # (1.3-7.7) k/uL Lymphocytes # (1.0-4.8) k/uL Sodium 132 L (137-145) mmol/L Chloride 96 L (98-107) mmol/L Creatinine 0.61 L (0.66-1.25) mg/dL Glucose 208 H (74-99) mg/dL POC Glucose (mg/dL) 219 H 190 H (75-99) mg/dL Calcium 8.3 L (8.4-10.2) mg/dL Total Protein 5.5 L (6.3-8.2) g/dL Albumin 2.8 L (3.5-5.0) g/dL Microbiology - Last 24 Hours (Table) 10/07/19 09:52 Blood Culture - Preliminary Blood No Growth after 96 hours Assessment and Plan Assessment: A. 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 fib Chronic hypotension Generalized weakness Obstructive sleep apnea Hyperthyroidism Plan: Continue IV steroids breathing treatments and broad-spectrum antibiotics Continue diuresis Continue supportive care Prognosis is very guarded Continue CPAP each night and when necessary during the day Further recommendations pending plan of care as per clinical response of the patient Time with Patient: Greater than 30
[2019-10-11 16:52] LABS: Glucose,Whole Blood 208 mg/dL (75-99)
[2019-10-11] MEDS: LISINOPRIL 2.5 MG TAB PO SCH (17:13)
[2019-10-11] MEDS: AMIODARONE 300 MG in DEXTROSE 5% IN WATER 250 ML IV SCH ×2 (18:57)
[2019-10-11 20:16] LABS: Glucose,Whole Blood 198 mg/dL (75-99)
[2019-10-11] MEDS: ATORVASTATIN 10 MG TAB PO SCH (20:46)
[2019-10-11] MEDS: MONTELUKAST 10 MG TAB PO SCH (20:46)
[2019-10-12] MEDS: IPRATROPIUM-ALBUTEROL 3 ML NEB INHALATION PRN ×3 (01:33→23:58)
[2019-10-12] MEDS: AMIODARONE 300 MG in DEXTROSE 5% IN WATER 250 ML IV SCH ×2 (04:13)
[2019-10-12] MEDS: PIPERACILLIN-TAZOBACTAM 3.375 GM in SODIUM CHLORIDE 0.9% 100 ML IVPB SCH ×3 (04:16→21:20)
[2019-10-12 06:11] LABS: Glucose,Whole Blood 242 mg/dL (75-99)
[2019-10-12] MEDS: INSULIN ASPART (NovoLOG) 100 UNIT/ML VIAL SQ SCH ×4 (06:17→21:28)
[2019-10-12] MEDS: glipiZIDE 5 MG TAB PO SCH ×3 (06:17→17:11)
[2019-10-12] MEDS: PANTOPRAZOLE 40 MG TABLET PO SCH (06:17)
[2019-10-12] MEDS: ALPRAZolam 0.25 MG TAB PO PRN ×2 (06:35→17:28)
[2019-10-12 06:49] LABS: Basophils % (A) 0 %; Eosinophils % (A) 0 %; HCT 42.8 % (39.0-53.0); Lymphocytes # (A) 0.6 k/uL (1.0-4.8); Lymphocytes % (A) 4 %; MCH 28.8 pg (25.0-35.0); MCHC 32.7 g/dL (31.0-37.0); Monocytes # (A) 0.4 k/uL (0-1.0); Monocytes % (A) 3 %; Neutrophils % (A) 93 %; Platelet Count 472 k/uL (150-450); RBC 4.86 m/uL (4.30-5.90); RDW 15.3 % (11.5-15.5); WBC 16.2 k/uL (3.8-10.6)
[2019-10-12 06:58] LABS: ALT 21 U/L (4-49); AST 29 U/L (17-59); African American GFR (CKD) >90 (>60 ml/min/1.73 sqM); Alkaline Phosphatase 87 U/L (38-126); Anion Gap 12 mmol/L; Blood Urea Nitrogen 18 mg/dL (9-20); Calcium 8.6 mg/dL (8.4-10.2); Carbon Dioxide 30 mmol/L (22-30); Chloride 92 mmol/L (98-107); Glucose 215 mg/dL (74-99); Non-African American GFR(CKD) >90 (>60 ml/min/1.73 sqM); Potassium 3.6 mmol/L (3.5-5.1); Sodium 134 mmol/L (137-145); Total Bilirubin 0.7 mg/dL (0.2-1.3); Total Protein 5.8 g/dL (6.3-8.2)
[2019-10-12] MEDS: SYMBICORT 160-4.5 MCG INHALER INHALATION SCH ×2 (07:38→19:49)
[2019-10-12] MEDS: IPRATROPIUM-ALBUTEROL 3 ML NEB INHALATION SCH ×4 (07:38→19:49)
[2019-10-12] MEDS: MULTIVITAMINS, THERA 1 EACH TAB PO SCH (08:51)
[2019-10-12] MEDS: FUROSEMIDE 20 MG TAB PO SCH ×2 (08:51→17:12)
[2019-10-12] MEDS: levETIRAcetam 500 MG TAB PO SCH ×2 (08:51→21:21)
[2019-10-12] MEDS: methylPREDNISolone SOD SUCCI 125 MG/2 ML VIAL IV SCH ×2 (08:51→17:11)
[2019-10-12] MEDS: METOPROLOL SUCCINATE (ER) 100 MG TAB.ER.24H PO SCH (08:51)
[2019-10-12] MEDS: ASCORBIC ACID 500 MG TAB PO SCH (08:52)
[2019-10-12] MEDS: POTASSIUM CHLORIDE ER 20 MEQ TAB.ER PO SCH (08:52)
[2019-10-12] MEDS: CLOPIDOGREL 75 MG TAB PO SCH (08:52)
[2019-10-12] MEDS: APIXABAN 5 MG TAB PO SCH ×2 (08:52→21:21)
[2019-10-12] MEDS: METHIMAZOLE 5 MG TAB PO SCH (08:52)
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
[2019-10-12 11:45] LABS: Glucose,Whole Blood 161 mg/dL (75-99)
[2019-10-12] MEDS: LEVOFLOXACIN 750 MG TAB PO SCH (12:24)
--- NOTE | 2019-10-12 14:22 | PN ---
PROGRESS NOTE He was seen on 10/12/2019. He continues to have shortness of breath and is unable to complete a sentence without having to take a breath. PHYSICAL EXAMINATION: Blood pressure is 109/73, respiratory rate of 18, pulse rate of 114, O2 saturation on 10 L by high-flow nasal cannula is 92%. HEENT: Reveals pupils that are equal, mild prominence of the jugular vein. Chest with decreased breath sounds with prolonged exhalation with expiratory wheeze. Cardiovascular system reveals an S1, S2. No S3, no S4. Abdomen is soft. There is 1+ pedal edema. IMPRESSION: 1. Severe chronic obstructive pulmonary disease with acute exacerbation. 2. Pneumonia. 3. Atrial fibrillation with rapid ventricular response. Continue IV steroids, bronchodilators, aerosolized steroids. His prognosis is guarded. He was counseled regarding his condition. MMODL / IJN: [id number] /
--- NOTE | 2019-10-12 14:33 | P.PN ---
Subjective Progress Note Date: 10/12/19 This is a 79-year-old male with a known history of atrial fibrillation anticoagulated with Eliquis, COPD, myocardial infarction, coronary artery disease with cardiac stent, seizure disorder and hyperthyroidism in which she was just started on Tapazole during his last hospitalization. Patient was just recently discharged earlier in September from the hospital after being treated for COPD exacerbation and bronchitis. He also at that time had A. fib with RVR and had an increase in his Lopressor and he was started on oral Cardizem. Patient reports taking all of his medications. Patient reports never fully recovering after his hospitalization. He reports having a shortness of breath and left-sided chest pain that started to worsen throughout the night. He has a productive cough at times. Chest x-ray showing left upper lobe and possible mild right lower lobe infiltrates. Temp of 100.2 BP 91/64. Lactic was normal at 1.9. Influenza screening was negative. Patient was given Rocephin Zosyn and Levaquin in the ER for his pneumonia. There is also concerns for sepsis. He and his been given IV fluids. EKG had shown atrial fibrillation with rapid ventricular response heart rate was 175. In the ER patient was started on Cardizem drip. Troponin is elevated at 0.216. Cardiology and pulmonary services are on consult. Patient denies any nausea or vomiting bowel movement changes or urinary symptoms. On 10/08/2019 patient was seen and examined on the medical floor he is alert and oriented 3 in no apparent distress he is still complaining of shortness of breath cough and wheezing otherwise he denies any complaints there is no fever or chills no headache or dizziness no chest pain no nausea or vomiting no abdominal pain no diarrhea and no urinary symptoms. On 10/09/2019 patient is alert and oriented 3 in no distress, he is still complaining of cough, wheezing, and shortness of breath with any activity otherwise he denies any complaints there is no fever or chills no headache or dizziness no chest pain no nausea or vomiting no abdominal pain no diarrhea no burning with urination no frequency or urgency and no hematuria On 10/10/2019 patient is alert and oriented 3. Patient is still having some significant wheezing and shortness of breath. Pulmonary services are following. currently maintained on Levaquin, Zosyn and Solu-Medrol. Cardiac meds also adjusted per cardiology patient having low blood pressure. Medications to be adjusted per cardiology. At this time patient denies chest pain. Patient denies nausea vomiting or diarrhea. Patient denies any urinary burning or frequency. On 10/11/2019 patient is alert and oriented 3. Patient remains short of breath. Heart rate remains elevated cardiology and pulmonary services are following. Patient has been started on amiodarone. Patient remains on Solu- Medrol, Levaquin and Zosyn. Pulmonary services are following. Patient remains on eliquis for anticoagulation. At this time patient denies chest pain. Patient denies nausea vomiting or diarrhea. Patient denies any urinary burning or frequency On 10/12/2019 patient has elected 903. Patient's daughter is at bedside. Patient showing minimal improvement. Due to patient's minimal improvement and continued decline in respiratory status remaining transfer to tertiary facility. Transfer to [facility] in progress family in agreement. Patient remains on IV Solu-Medrol Levaquin and Zosyn. Patient was started on amiodarone Per cardiology due to A. fib RVR. At this time patient denies any nausea vomiting or diarrhea. Patient denies any urinary burning or frequency Objective - Vital Signs Vital signs: Vital Signs Temp 97.5 F L 10/12/19 08:15 Pulse 114 H 10/12/19 11:30 Resp 18 10/12/19 12:23 BP 109/73 10/12/19 11:30 Pulse Ox 88 L 10/12/19 12:23 Intake & Output 10/11/19 10/12/19 10/12/19 18:59 06:59 18:59 Intake Total 840 251.667 600 Output Total 1490 200 Balance -650 51.667 600 Weight 86.8 kg Intake: IV 20 Invasive Line 3 20 Intake, IV Titration 231.667 Amount Amiodarone 300 mg In 231.667 Dextrose 5% in Water 250 ml @ 0.5 MG/MIN 25 mls/hr IV .Q10H [facility] Rx#: [id number] Oral 840 600 Output: Urine 1490 200 Other: Voiding Method Urinal Urinal Urinal # Voids 1 1 # Bowel Movements 1 - Exam HEENT head normocephalic and atraumatic Neck is supple no JVD no goiter no lymphadenopathy Chest exam reveals diffuse crackles in both lung villarreal with wheezing Cardiac exam reveals regular heart sounds S1 and S2 no gallops no murmurs Abdomen is soft nontender no organomegaly with normal bowel sounds Extremity exam reveals no edema no cyanosis or clubbing Neurological examination patient is alert and oriented 3 no focal neurological deficit - Labs CBC & Chem 7: 10/12/19 06:19 10/12/19 06:19 Labs: Abnormal Lab Results - Last 24 Hours (Table) 10/11/19 10/11/19 10/12/19 Range/Units 16:50 20:14 06:10 WBC (3.8-10.6) k/uL Plt Count (150-450) k/uL Neutrophils # (1.3-7.7) k/uL Lymphocytes # (1.0-4.8) k/uL Sodium (137-145) mmol/L Chloride (98-107) mmol/L Creatinine (0.66-1.25) mg/dL Glucose (74-99) mg/dL POC Glucose (mg/dL) 208 H 198 H 242 H (75-99) mg/dL Total Protein (6.3-8.2) g/dL Albumin (3.5-5.0) g/dL 10/12/19 10/12/19 10/12/19 Range/Units 06:19 06:19 11:42 WBC 16.2 H (3.8-10.6) k/uL Plt Count 472 H (150-450) k/uL Neutrophils # 15.0 H (1.3-7.7) k/uL Lymphocytes # 0.6 L (1.0-4.8) k/uL Sodium 134 L (137-145) mmol/L Chloride 92 L (98-107) mmol/L Creatinine 0.65 L (0.66-1.25) mg/dL Glucose 215 H (74-99) mg/dL POC Glucose (mg/dL) 161 H (75-99) mg/dL Total Protein 5.8 L (6.3-8.2) g/dL Albumin 3.0 L (3.5-5.0) g/dL Microbiology - Last 24 Hours (Table) 10/07/19 09:52 Blood Culture - Preliminary Blood No Growth after 120 hours Assessment and Plan Assessment: 1. Shortness of breath multifactorial likely related to pneumonia, COPD exacerbation, fluid overload and atrial fibrillation with rapid ventricular response. Pulmonary service and cardiology on consult 2. Pneumonia with sepsis present on admission. Chest x-ray showing a left upper lobe and possible mild right lower lobe infiltrates. Patient given 1 dose of Rocephin in the ER and started on Zosyn and Levaquin in the ER. Patient did have a temp of 100.2 and blood pressure of 91/64. Influenza screen negative. Pulmonary services are following. Patient remains on Solu-Medrol, Zosyn and Levaquin. Sputum cultures currently showing no growth. Infectious disease following. Patient currently maintained on Zosyn and Levaquin 3. Atrial fibrillation with rapid ventricular response. Currently on a Cardizem drip. Cardiology on consult. Cardizem drip has been DC'd. Patient started on verapamil. Verapamil DC'd due to hypotension. started on amiodarone drip per cardiology 4. Patient has a known history of chronic atrial fibrillation anticoagulated with Eliquis. 5. Chest pain with Elevated troponin: Continue monitor cardiac enzymes. Cardiology on consult 6. Acute COPD exacerbation: Start IV Solu-Medrol 60 mg IV every 6 hours. Continue DuoNeb updraft treatments. Pulmonary services consulted 7. Hyperthyroidism: Resume patient's Tapazole. TSH level 2.430 8. Acute on Chronic diastolic CHF exacerbation. Echo from August shows an EF of 55-60%. Patient did receive 1 dose of IV Lasix in the ER. BNP 1470. By mouth Lasix has been ordered per cardiology 9. Hyponatremia: Sodium is 130 on admission. We'll monitor. Sodium improving to 134 10. History of myocardial infarction with coronary artery disease and stent 11. History of seizure disorder on Keppra 12. Acute on chronic diastolic heart failure. Patient was given 1 dose of IV Lasix per cardiology. Maintained on oral Lasix 20 mg twice a day GI prophylaxis Protonix and DVT prophylaxis Eliquis Pulmonary cardiology services are following Patient remains on IV Solu-Medrol, updraft breathing treatments, Zosyn and Levaquin Due to patient's continued declining status and minimum improvement recommending transfer to [facility]. Amylase and agreement. Case management are aware transfer in progress I performed an examination of the patient and discussed their management with madison zaman Nurse Practitioner. I have reviewed the Nurse Practitioner's notes and agree with the documented findings and plan of care
--- NOTE | 2019-10-12 15:00 | PN ---
PROGRESS NOTE DATE OF SERVICE: 10/12/2019. REASON FOR FOLLOWUP: Pneumonia. INTERVAL HISTORY: The patient is afebrile. The patient has slightly improved. He did have some cough with wheeze and sputum. No chest pain, no abdominal pain or diarrhea. On examination, blood pressure 139/53, with a pulse of 140, temperature 97.5, he is 92% on high-flow. General description is an elderly male, up in the bed in no distress. RESPIRATORY SYSTEM: Unlabored breathing with decreased breath sounds. HEART: S1, S2. IMPRESSION: underlying pneumonia . Rocephin and monitor patient . Unable to hear report/a lot of static. MMODL / IJN: [id number] /
--- NOTE | 2019-10-12 15:47 | P.PN ---
Subjective Progress Note Date: 10/12/19 This is an 79-year-old gentleman with past medical history of coronary artery disease with prior PCI, hypertension, hyperlipidemia, paroxysmal atrial fibrillation, COPD, prior CVA, diabetes, history of prostate cancer, recurrent pneumonia, was recently in the hospital in August with COPD exacerbation and tracheobronchitis. Readmitted to the hospital on this occasion with progressively worsening shortness of breath as well as productive cough and fever. Patient had an echocardiogram with Doppler study performed in August which revealed a normal left ventricular systolic function. Chest x-ray on presentation here showed a left upper lobe and right lower lobe infiltrate. EKG on presentation here showed atrial fibrillation with a rapid ventricular response. Chest x-ray performed this morning showed a worsening left-sided pneumonia with pleural effusion. Blood pressure on arrival here 94/80 with a heart rate of 150-170, temperature 100.2, 97% on 3 L of oxygen. Blood pressure this morning 116/60 with a heart rate in the 80s. White blood cell count is normal, hemoglobin 11.8, platelet count 411. Sodium 132, potassium 3.5, BUN 9, creatinine 0.5. BNP level 1470. Trop 0.216. Influenza A and B are negative. At the time of my examination this morning, patient complains of feeling extremely weak, he continues to have a significant productive cough, continues to feel short of breath. 10/09/2019 Patient seen and examined this morning, states that his breathing is improving, continues to have peripheral edema. Blood pressure 104/50 with a heart rate in the 90s, 95% on 5 L of oxygen. White blood cell count 11.7, hemoglobin 11.7, platelet count 440. Sodium 133, potassium 3.5, BUN 13, creatinine 0.6. 10/10/2019 Patient was seen and examined this morning, complaining of feeling a little more short of breath today. Stat chest x-ray requested. X-ray showed development of right sided obesity, multifocal pneumonia a possibility. Blood pressure today running in the 80s systolic. Heart rate 120. White blood cell count 13.6, hemoglobin 12.6, platelet count 382. Sodium 132, potassium 3.9, BUN 18, creatinine 0.6. 2019 Patient was seen and examined this morning, his heart rate was up in the 120 to 130 range. Patient continues to be hypotensive. We will stop the verapamil and start the patient on IV amiodarone. His pro calcitonin level came back at 0.03. We will give the patient one time dose of IV Lasix. 10/12/2019 Patient seen and examined this morning, overall it does appear that his breathing is improving. Blood pressure 110/70, heart rate 110, 92% on 10 L of oxygen. White blood cell count 16.2, hemoglobin 14, platelet count 472. Sodium 134, potassium 3.6, BUN 18, creatinine 0.6. Objective - Vital Signs Vital signs: Vital Signs Temp 97.5 F L 10/12/19 08:15 Pulse 114 H 10/12/19 11:30 Resp 18 10/12/19 12:23 BP 109/73 10/12/19 11:30 Pulse Ox 88 L 10/12/19 12:23 Intake & Output 10/11/19 10/12/19 10/12/19 18:59 06:59 18:59 Intake Total 840 251.667 600 Output Total 1490 200 Balance -650 51.667 600 Weight 86.8 kg Intake: IV 20 Invasive Line 3 20 Intake, IV Titration 231.667 Amount Amiodarone 300 mg In 231.667 Dextrose 5% in Water 250 ml @ 0.5 MG/MIN 25 mls/hr IV .Q10H [facility] Rx#: [id number] Oral 840 600 Output: Urine 1490 200 Other: Voiding Method Urinal Urinal Urinal # Voids 1 1 # Bowel Movements 1 - Exam PHYSICAL EXAMINATION: GENERAL: 79-year-old gentleman, appears weak and tired, at the time of my examination HEENT: Head is atraumatic, normocephalic. Pupils equal, round. Sclera anicteric. Conjunctiva are clear. Mucous membranes of the mouth are moist. Nec k is supple. There is no elevated jugular venous pressure. No carotid bruit is heard. HEART EXAMINATION: Heart S1 and S2 irregularly irregular CHEST EXAMINATION: Lungs reveal scattered coarse rhonchi, wheezing, throughout with diminished air entry to the bases bilaterally. ABDOMEN: Soft, nontender. Bowel sounds are heard. No organomegaly noted. EXTREMITIES: 2+ peripheral pulses with evidence of peripheral edema and no calf tenderness noted. NEUROLOGIC patient is awake, alert and oriented 3 . . - Labs CBC & Chem 7: 10/12/19 06:19 10/12/19 06:19 Labs: Abnormal Lab Results - Last 24 Hours (Table) 10/11/19 10/11/19 10/12/19 Range/Units 16:50 20:14 06:10 WBC (3.8-10.6) k/uL Plt Count (150-450) k/uL Neutrophils # (1.3-7.7) k/uL Lymphocytes # (1.0-4.8) k/uL Sodium (137-145) mmol/L Chloride (98-107) mmol/L Creatinine (0.66-1.25) mg/dL Glucose (74-99) mg/dL POC Glucose (mg/dL) 208 H 198 H 242 H (75-99) mg/dL Total Protein (6.3-8.2) g/dL Albumin (3.5-5.0) g/dL 10/12/19 10/12/19 10/12/19 Range/Units 06:19 06:19 11:42 WBC 16.2 H (3.8-10.6) k/uL Plt Count 472 H (150-450) k/uL Neutrophils # 15.0 H (1.3-7.7) k/uL Lymphocytes # 0.6 L (1.0-4.8) k/uL Sodium 134 L (137-145) mmol/L Chloride 92 L (98-107) mmol/L Creatinine 0.65 L (0.66-1.25) mg/dL Glucose 215 H (74-99) mg/dL POC Glucose (mg/dL) 161 H (75-99) mg/dL Total Protein 5.8 L (6.3-8.2) g/dL Albumin 3.0 L (3.5-5.0) g/dL Microbiology - Last 24 Hours (Table) 10/07/19 09:52 Blood Culture - Preliminary Blood No Growth after 120 hours Assessment and Plan Plan: IMPRESSION / ASSESSMENT: #1 Acute COPD exacerbation, tracheobronchitis and evidence of worsening left- sided pneumonia #2 atrial fibrillation with a rapid ventricular response, patient has a known history of paroxysmal atrial fibrillation. TSH normal. #3 acute on chronic diastolic heart failure #4 Preserved LV systolic function by recent echo #5 History of CAD status post stenting #6 Hypertension #7 Dyslipidemia #8 diabetes #9 prior CVA #10 history of COPD Plan We will start the patient on oral amiodarone as the drip is almost infuse,give one additional dose of IV Lasix today. Check lytes BUN and creatinine in the morning. DNP note has been reviewed, I agree with a documented findings and plan of care. Patient was seen and examined.
[2019-10-12 16:57] LABS: Glucose,Whole Blood 210 mg/dL (75-99)
[2019-10-12] MEDS: LISINOPRIL 2.5 MG TAB PO SCH (17:12)
[2019-10-12] MEDS: AMIODARONE 200 MG TAB PO SCH (18:15)
[2019-10-12] MEDS: DILTIAZEM ORAL 30 MG TAB PO SCH ×2 (18:39→22:50)
[2019-10-12] MEDS: ATORVASTATIN 10 MG TAB PO SCH (21:21)
[2019-10-12] MEDS: MONTELUKAST 10 MG TAB PO SCH (21:21)
[2019-10-12 21:26] LABS: Glucose,Whole Blood 167 mg/dL (75-99)
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
[2019-10-12] MEDS ORDERED: NITROGLYCERIN SL TABS 0.4 MG TAB SUBLINGUAL ONE (22:47)
[2019-10-12] MEDS ORDERED: NITROGLYCERIN SL TABS 0.4 MG TAB SUBLINGUAL PRN (22:49)
[2019-10-13] MEDS: methylPREDNISolone SOD SUCCI 125 MG/2 ML VIAL IV SCH ×4 (01:24→23:51)
[2019-10-13] MEDS: IPRATROPIUM-ALBUTEROL 3 ML NEB INHALATION PRN ×2 (02:38→05:13)
[2019-10-13 05:30] LABS: Basophils % (A) 0 %; Eosinophils % (A) 0 %; HCT 40.5 % (39.0-53.0); HGB 13.2 gm/dL (13.0-17.5); Lymphocytes # (A) 0.4 k/uL (1.0-4.8); Lymphocytes % (A) 3 %; MCH 28.7 pg (25.0-35.0); MCHC 32.7 g/dL (31.0-37.0); MCV 87.9 fL (80.0-100.0); Mean Platelet Volume 6.9; Monocytes # (A) 0.5 k/uL (0-1.0); Monocytes % (A) 3 %; Neutrophils # (A) 13.6 k/uL (1.3-7.7); Neutrophils % (A) 93 %; Platelet Count 353 k/uL (150-450); RDW 15.3 % (11.5-15.5); WBC 14.7 k/uL (3.8-10.6)
[2019-10-13 05:37] LABS: ALT 18 U/L (4-49); AST 26 U/L (17-59); African American GFR (CKD) >90 (>60 ml/min/1.73 sqM); Albumin 2.7 g/dL (3.5-5.0); Alkaline Phosphatase 86 U/L (38-126); Anion Gap 8 mmol/L; Blood Urea Nitrogen 15 mg/dL (9-20); Calcium 8.3 mg/dL (8.4-10.2); Carbon Dioxide 30 mmol/L (22-30); Chloride 94 mmol/L (98-107); Glucose 166 mg/dL (74-99); Non-African American GFR(CKD) >90 (>60 ml/min/1.73 sqM); Potassium 3.8 mmol/L (3.5-5.1); Sodium 132 mmol/L (137-145); Total Bilirubin 0.6 mg/dL (0.2-1.3); Total Protein 5.3 g/dL (6.3-8.2)
[2019-10-13] MEDS: PIPERACILLIN-TAZOBACTAM 3.375 GM in SODIUM CHLORIDE 0.9% 100 ML IVPB SCH ×3 (05:54→21:02)
[2019-10-13] MEDS ORDERED: Potassium Replacement Protocol 1 EACH MISC MISCELLANE PRN (05:58)
[2019-10-13 06:46] LABS: Glucose,Whole Blood 200 mg/dL (75-99)
[2019-10-13] MEDS: INSULIN ASPART (NovoLOG) 100 UNIT/ML VIAL SQ SCH ×4 (06:56→23:52)
[2019-10-13] MEDS: PANTOPRAZOLE 40 MG TABLET PO SCH (06:56)
[2019-10-13] MEDS ORDERED: POTASSIUM CHLORIDE ER 20 MEQ TAB.ER PO SCH (07:30)
[2019-10-13 07:35] LABS: ABG Base Excess 6.3 mmol/L; ABG HCO3 29 mmol/L (21-25); ABG Oxygen Saturation 96.7 % (94-97); ABG PCO2 38 mmHg (35-45); ABG PO2 81 mmHg (83-108); ABG TCO2 31 mmol/L (19-24); Allen Test Performed? Yes
--- NOTE | 2019-10-13 07:42 | P.PN ---
Subjective Progress Note Date: 10/13/19 Principal diagnosis: Paroxysmal atrial fibrillation This is a pleasant 79-year-old gentleman with history of paroxysmal atrial fibrillation, chronic obstructive pulmonary disease, coronary artery disease, as well as multiple comorbid conditions including COPD, was admitted to the hospital with COPD exacerbation. Also he was in atrial fibrillation with RVR which we consulted to manage. The patient was seen today, 10/13/2019. Last night she was transferred to the intensive care unit for acute respiratory distress. He continues to be in atrial fibrillation with heart rate around 110 beats per minutes. Part of his tachycardia is related to respiratory distress. Currently he is on amiodarone, Cardizem, as well as metoprolol. His pressure has been marginal and because of that I'm going to DC the lisinopril. Objective - Vital Signs Vital signs: Vital Signs Temp 97.5 F L 10/13/19 04:00 Pulse 131 H 10/13/19 06:00 Resp 24 10/13/19 06:00 BP 91/73 10/13/19 06:00 Pulse Ox 94 L 10/13/19 06:00 Intake & Output 10/12/19 10/13/19 10/13/19 18:59 06:59 18:59 Intake Total 960 100 Output Total 225 Balance 960 -125 Intake: IV 100 Piperacillin-Tazobactam 3 100 .375 gm In Sodium Chloride 0.9% 100 ml @ 25 mls/hr IVPB Q8H [facility] Rx#: [id number] Oral 960 Output: Urine 225 Other: Voiding Method Urinal Urinal # Bowel Movements 1 - Labs CBC & Chem 7: 10/13/19 04:41 10/13/19 04:41 Labs: Abnormal Lab Results - Last 24 Hours (Table) 10/12/19 10/12/19 10/12/19 Range/Units 11:42 16:33 21:24 WBC (3.8-10.6) k/uL Neutrophils # (1.3-7.7) k/uL Lymphocytes # (1.0-4.8) k/uL ABG pH (7.35-7.45) ABG pO2 (83-108) mmHg ABG HCO3 (21-25) mmol/L ABG Total CO2 (19-24) mmol/L Sodium (137-145) mmol/L Chloride (98-107) mmol/L Creatinine (0.66-1.25) mg/dL Glucose (74-99) mg/dL POC Glucose (mg/dL) 161 H 210 H 167 H (75-99) mg/dL Calcium (8.4-10.2) mg/dL Total Protein (6.3-8.2) g/dL Albumin (3.5-5.0) g/dL 10/13/19 10/13/19 10/13/19 Range/Units 04:41 04:41 06:45 WBC 14.7 H (3.8-10.6) k/uL Neutrophils # 13.6 H (1.3-7.7) k/uL Lymphocytes # 0.4 L (1.0-4.8) k/uL ABG pH (7.35-7.45) ABG pO2 (83-108) mmHg ABG HCO3 (21-25) mmol/L ABG Total CO2 (19-24) mmol/L Sodium 132 L (137-145) mmol/L Chloride 94 L (98-107) mmol/L Creatinine 0.65 L (0.66-1.25) mg/dL Glucose 166 H (74-99) mg/dL POC Glucose (mg/dL) 200 H (75-99) mg/dL Calcium 8.3 L (8.4-10.2) mg/dL Total Protein 5.3 L (6.3-8.2) g/dL Albumin 2.7 L (3.5-5.0) g/dL 10/13/19 Range/Units 07:24 WBC (3.8-10.6) k/uL Neutrophils # (1.3-7.7) k/uL Lymphocytes # (1.0-4.8) k/uL ABG pH 7.50 H (7.35-7.45) ABG pO2 81 L (83-108) mmHg ABG HCO3 29 H (21-25) mmol/L ABG Total CO2 31 H (19-24) mmol/L Sodium (137-145) mmol/L Chloride (98-107) mmol/L Creatinine (0.66-1.25) mg/dL Glucose (74-99) mg/dL POC Glucose (mg/dL) (75-99) mg/dL Calcium (8.4-10.2) mg/dL Total Protein (6.3-8.2) g/dL Albumin (3.5-5.0) g/dL Microbiology - Last 24 Hours (Table) 10/07/19 09:52 Blood Culture - Preliminary Blood No Growth after 120 hours Assessment and Plan Assessment: Assessment #1 acute on chronic hypoxic respiratory failure #2 COPD exacerbation #3 paroxysmal atrial fibrillation #4 multiple comorbid conditions Plan #1 continue the current medical regimen #2 DC lisinopril in view of the low blood pressure #3 follow-up with the patient
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
[2019-10-13] MEDS: levETIRAcetam 500 MG TAB PO SCH ×2 (08:21→21:02)
[2019-10-13] MEDS: METHIMAZOLE 5 MG TAB PO SCH (08:21)
[2019-10-13] MEDS: FUROSEMIDE 20 MG TAB PO SCH ×2 (08:22→16:11)
[2019-10-13] MEDS: DILTIAZEM ORAL 30 MG TAB PO SCH ×3 (08:22→21:02)
[2019-10-13] MEDS: APIXABAN 5 MG TAB PO SCH ×2 (08:22→21:02)
[2019-10-13] MEDS: MULTIVITAMINS, THERA 1 EACH TAB PO SCH (08:22)
[2019-10-13] MEDS: CLOPIDOGREL 75 MG TAB PO SCH (08:22)
[2019-10-13] MEDS: ASCORBIC ACID 500 MG TAB PO SCH (08:22)
[2019-10-13] MEDS: AMIODARONE 200 MG TAB PO SCH ×2 (08:22→21:02)
[2019-10-13] MEDS: glipiZIDE 5 MG TAB PO SCH ×2 (08:28→12:11)
[2019-10-13] MEDS: IPRATROPIUM-ALBUTEROL 3 ML NEB INHALATION SCH ×4 (08:43→21:12)
[2019-10-13] MEDS: SYMBICORT 160-4.5 MCG INHALER INHALATION SCH ×2 (08:43→21:12)
[2019-10-13] MEDS: POTASSIUM CHLORIDE ER 20 MEQ TAB.ER PO SCH (09:55)
[2019-10-13] MEDS: METOPROLOL SUCCINATE (ER) 100 MG TAB.ER.24H PO SCH (10:58)
--- NOTE | 2019-10-13 11:00 | P.PN ---
Subjective Progress Note Date: 10/13/19 This is a 79-year-old male with a known history of atrial fibrillation anticoagulated with Eliquis, COPD, myocardial infarction, coronary artery disease with cardiac stent, seizure disorder and hyperthyroidism in which she was just started on Tapazole during his last hospitalization. Patient was just recently discharged earlier in September from the hospital after being treated for COPD exacerbation and bronchitis. He also at that time had A. fib with RVR and had an increase in his Lopressor and he was started on oral Cardizem. Patient reports taking all of his medications. Patient reports never fully recovering after his hospitalization. He reports having a shortness of breath and left-sided chest pain that started to worsen throughout the night. He has a productive cough at times. Chest x-ray showing left upper lobe and possible mild right lower lobe infiltrates. Temp of 100.2 BP 91/64. Lactic was normal at 1.9. Influenza screening was negative. Patient was given Rocephin Zosyn and Levaquin in the ER for his pneumonia. There is also concerns for sepsis. He and his been given IV fluids. EKG had shown atrial fibrillation with rapid ventricular response heart rate was 175. In the ER patient was started on Cardizem drip. Troponin is elevated at 0.216. Cardiology and pulmonary services are on consult. Patient denies any nausea or vomiting bowel movement changes or urinary symptoms. On 10/08/2019 patient was seen and examined on the medical floor he is alert and oriented 3 in no apparent distress he is still complaining of shortness of breath cough and wheezing otherwise he denies any complaints there is no fever or chills no headache or dizziness no chest pain no nausea or vomiting no abdominal pain no diarrhea and no urinary symptoms. On 10/09/2019 patient is alert and oriented 3 in no distress, he is still complaining of cough, wheezing, and shortness of breath with any activity otherwise he denies any complaints there is no fever or chills no headache or dizziness no chest pain no nausea or vomiting no abdominal pain no diarrhea no burning with urination no frequency or urgency and no hematuria On 10/10/2019 patient is alert and oriented 3. Patient is still having some significant wheezing and shortness of breath. Pulmonary services are following. currently maintained on Levaquin, Zosyn and Solu-Medrol. Cardiac meds also adjusted per cardiology patient having low blood pressure. Medications to be adjusted per cardiology. At this time patient denies chest pain. Patient denies nausea vomiting or diarrhea. Patient denies any urinary burning or frequency. On 10/11/2019 patient is alert and oriented 3. Patient remains short of breath. Heart rate remains elevated cardiology and pulmonary services are following. Patient has been started on amiodarone. Patient remains on Solu- Medrol, Levaquin and Zosyn. Pulmonary services are following. Patient remains on eliquis for anticoagulation. At this time patient denies chest pain. Patient denies nausea vomiting or diarrhea. Patient denies any urinary burning or frequency On 10/12/2019 patient has elected 903. Patient's daughter is at bedside. Patient showing minimal improvement. Due to patient's minimal improvement and continued decline in respiratory status remaining transfer to tertiary facility. Transfer to [facility] in progress family in agreement. Patient remains on IV Solu-Medrol Levaquin and Zosyn. Patient was started on amiodarone Per cardiology due to A. fib RVR. At this time patient denies any nausea vomiting or diarrhea. Patient denies any urinary burning or frequency On 10/13/2019 patient was moved to the intensive care unit due to declining respiratory status. Patient has been accepted at [facility] but there are currently no beds available. Pulmonary team Dr. Stanley did discuss with family this a.m. about possibility of intubation to perform bronchoscopy. Long discussion held with family at bedside this a.m. and questions were answered. At this time family and patient are leaning towards intubation with bronchoscopy. Family and patient are aware that patient's outcome might not change with intubation and bronchoscopy. Family and patient verbalized understanding and plan to move forward with bronchoscopy and intubation. Patient remains on high flow nasal cannula. Blood pressure remains marginal. Patient has been transitioned to by mouth amiodarone. Cardiology pulmonary and infectious disease following Objective - Vital Signs Vital signs: Vital Signs Temp 97.4 F L 10/13/19 08:00 Pulse 124 H 10/13/19 10:00 Resp 23 10/13/19 10:00 BP 91/77 10/13/19 10:00 Pulse Ox 94 L 10/13/19 10:00 Intake & Output 10/12/19 10/13/19 10/13/19 18:59 06:59 18:59 Intake Total 960 100 20 Output Total 225 50 Balance 960 -125 -30 Intake: IV 100 20 0.9 NS 20 Piperacillin-Tazobactam 3 100 .375 gm In Sodium Chloride 0.9% 100 ml @ 25 mls/hr IVPB Q8H [facility] Rx#: [id number] Oral 960 Output: Urine 225 50 Other: Voiding Method Urinal Urinal Urinal # Bowel Movements 1 - Exam HEENT head normocephalic and atraumatic Neck is supple no JVD no goiter no lymphadenopathy Chest exam reveals diffuse crackles in both lung villarreal with wheezing Cardiac exam reveals regular heart sounds S1 and S2 no gallops no murmurs Abdomen is soft nontender no organomegaly with normal bowel sounds Extremity exam reveals no edema no cyanosis or clubbing Neurological examination patient is alert and oriented 3 no focal neurological deficit - Labs CBC & Chem 7: 10/13/19 04:41 10/13/19 04:41 Labs: Abnormal Lab Results - Last 24 Hours (Table) 10/12/19 10/12/19 10/12/19 Range/Units 11:42 16:33 21:24 WBC (3.8-10.6) k/uL Neutrophils # (1.3-7.7) k/uL Lymphocytes # (1.0-4.8) k/uL ABG pH (7.35-7.45) ABG pO2 (83-108) mmHg ABG HCO3 (21-25) mmol/L ABG Total CO2 (19-24) mmol/L Sodium (137-145) mmol/L Chloride (98-107) mmol/L Creatinine (0.66-1.25) mg/dL Glucose (74-99) mg/dL POC Glucose (mg/dL) 161 H 210 H 167 H (75-99) mg/dL Calcium (8.4-10.2) mg/dL Total Protein (6.3-8.2) g/dL Albumin (3.5-5.0) g/dL 10/13/19 10/13/19 10/13/19 Range/Units 04:41 04:41 06:45 WBC 14.7 H (3.8-10.6) k/uL Neutrophils # 13.6 H (1.3-7.7) k/uL Lymphocytes # 0.4 L (1.0-4.8) k/uL ABG pH (7.35-7.45) ABG pO2 (83-108) mmHg ABG HCO3 (21-25) mmol/L ABG Total CO2 (19-24) mmol/L Sodium 132 L (137-145) mmol/L Chloride 94 L (98-107) mmol/L Creatinine 0.65 L (0.66-1.25) mg/dL Glucose 166 H (74-99) mg/dL POC Glucose (mg/dL) 200 H (75-99) mg/dL Calcium 8.3 L (8.4-10.2) mg/dL Total Protein 5.3 L (6.3-8.2) g/dL Albumin 2.7 L (3.5-5.0) g/dL 10/13/19 Range/Units 07:24 WBC (3.8-10.6) k/uL Neutrophils # (1.3-7.7) k/uL Lymphocytes # (1.0-4.8) k/uL ABG pH 7.50 H (7.35-7.45) ABG pO2 81 L (83-108) mmHg ABG HCO3 29 H (21-25) mmol/L ABG Total CO2 31 H (19-24) mmol/L Sodium (137-145) mmol/L Chloride (98-107) mmol/L Creatinine (0.66-1.25) mg/dL Glucose (74-99) mg/dL POC Glucose (mg/dL) (75-99) mg/dL Calcium (8.4-10.2) mg/dL Total Protein (6.3-8.2) g/dL Albumin (3.5-5.0) g/dL Microbiology - Last 24 Hours (Table) 10/07/19 09:52 Blood Culture - Preliminary Blood No Growth after 120 hours Assessment and Plan Assessment: 1. Shortness of breath multifactorial likely related to pneumonia, COPD exace rbation, fluid overload and atrial fibrillation with rapid ventricular response. Pulmonary service and cardiology on consult 2. Pneumonia with sepsis present on admission. Chest x-ray showing a left upper lobe and possible mild right lower lobe infiltrates. Patient given 1 dose of Rocephin in the ER and started on Zosyn and Levaquin in the ER. Patient did have a temp of 100.2 and blood pressure of 91/64. Influenza screen negative. Pulmonary services are following. Patient remains on Solu-Medrol, Zosyn and Levaquin. Sputum cultures currently showing no growth. Infectious disease foll owing. Patient currently maintained on Zosyn and Levaquin 3. Atrial fibrillation with rapid ventricular response. Currently on a Cardizem drip. Cardiology on consult. Cardizem drip has been DC'd. Patient started on verapamil. Verapamil DC'd due to hypotension. Patient has been transitioned to by mouth amiodarone 4. Patient has a known history of chronic atrial fibrillation anticoagulated with Eliquis. 5. Chest pain with Elevated troponin: Continue monitor cardiac enzymes. Cardiology on consult 6. Acute COPD exacerbation: Start IV Solu-Medrol 60 mg IV every 6 hours. Continue DuoNeb updraft treatments. Pulmonary services consulted 7. Hyperthyroidism: Resume patient's Tapazole. TSH level 2.430 8. Acute on Chronic diastolic CHF exacerbation. Echo from August shows an EF of 55-60%. Patient did receive 1 dose of IV Lasix in the ER. BNP 1470. By mouth Lasix has been ordered per cardiology 9. Hyponatremia: Sodium is 130 on admission. We'll monitor. Sodium improving to 134 10. History of myocardial infarction with coronary artery disease and stent 11. History of seizure disorder on Keppra 12. Acute on chronic diastolic heart failure. Patient was given 1 dose of IV Lasix per cardiology. Maintained on oral Lasix 20 mg twice a day GI prophylaxis Protonix and DVT prophylaxis Eliquis Pulmonary cardiology services are following Patient remains on IV Solu-Medrol, updraft breathing treatments, Zosyn and Levaquin Patient has been accepted at [facility] but no beds currently available Patient was transferred to the intensive care unit due to declining respiratory status. Per pulmonary recommending possible intubation with bronchoscopy. Family and patient to decide intubation versus DO NOT RESUSCITATE. After family discussion it does appear family and patient are leaning towards intubation with bronchoscopy. I performed an examination of the patient and discussed their management with the Nurse Practitioner. I have reviewed the Nurse Practitioner's notes and agree with the documented findings and plan of care
[2019-10-13] MEDS: PROPOFOL 1,000 MG in EMPTY BAG 1 BAG IV SCH ×4 (11:20→23:53)
--- NOTE | 2019-10-13 11:36 | XR ---
EXAMINATION TYPE: XR chest 1V portable DATE OF EXAM: 10/13/2019 COMPARISON: 10/13/2019 earlier exam INDICATION: Post intubation TECHNIQUE: Single frontal view of the chest is obtained. FINDINGS: The heart size is mild the prominent. The pulmonary vasculature is prominent. There is diffuse increased lung markings which appears stable. Endotracheal tube has been placed with tip above the jamie. Nasogastric tube is in place, the distal tip however is not identified. IMPRESSION: 1. Stable diffuse increased lung markings present bilaterally. 2. Post line placement. Distal tip of the nasogastric tube is not clearly identified. Endotracheal tu be tip is above the jamie.
[2019-10-13] MEDS: NOREPINEPHRINE 4 MG in SODIUM CHLORIDE 0.9% 250 ML IV SCH (11:47)
[2019-10-13] MEDS: LEVOFLOXACIN 750 MG TAB PO SCH (12:14)
[2019-10-13 12:27] LABS: Glucose,Whole Blood 175 mg/dL (75-99)
--- NOTE | 2019-10-13 12:51 | PN ---
PROGRESS NOTE DATE OF SERVICE: 10/13/2019 REASON FOR FOLLOWUP: Possible pneumonia. INTERVAL HISTORY: The patient is currently afebrile. The patient has been transferred onto to the ICU because of increasing shortness of breath overnight. The patient denies having any chest pain. He did have a minimal cough, not really bringing up sputum. No nausea. No vomiting. No abdominal pain. No diarrhea. PHYSICAL EXAMINATION: Blood pressure 91/77 with a pulse of 96, temperature 97.4, he is 94% on high-flow oxygen. General description is an elderly male up in the bed in no distress. RESPIRATORY SYSTEM: Unlabored breathing. Decrease intensity of breath sounds at the bases. HEART: S1, S2. Regular rate and rhythm. ABDOMEN: Soft. No tenderness. LABS: Hemoglobin is 13.8, white count 14.7. BUN of 15, creatinine 0.65. Sputum has been revealing respiratory reinaldo. DIAGNOSTIC IMPRESSION AND PLAN: Patient admitted to the hospital with difficulty breathing, which is likely multifactorial. Possible fluid overload. Clinically, not behaving as pneumonia. The patient is currently covered with Zosyn and Levaquin, to continue. Awaiting a bronchoscopy this afternoon. Family was at the bedside. Their questions were answered. MMODL / IJN: [id number] /
--- NOTE | 2019-10-13 15:10 | P.PN ---
Subjective Progress Note Date: 10/13/19 (Critical care time 35 minutes) Principal diagnosis: A. 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 fib Chronic hypotension Generalized weakness Obstructive sleep apnea Hyperthyroidism 10/13/2019, patient seen eval examined during the rounds labs reviewed medications reviewed radiographic studies reviewed as well patient is intubated due to ongoing hypoxia respiratory distress and being tired out, his chest x-ray continued to show a diffuse interstitial lung marking bilaterally postintubation chest x-ray showed stable ET tube and NG tube, patient has been is on assist control rate of 16 tidal volume of 450 with PEEP of 500% oxygen arterial blood gases pending I have a detailed discussion with the family including 2 daughters plan is to proceed with bronchoscopy for pulmonary toilet and sampling of lower airway, patient remain on the bronchodilator along with amiodarone and anticoagulation with Eliquis, patient remains on broad-spectrum antibiotics along with IV steroids rate is still not very well controlled 100-120 atrial fibrillation with RVR, respiratory secretions are stable, white cell count is decreased to 14,700, labs reviewed the renal function continued to improve, patient is having adequate output will plan to start patient on tube feed continue current medication and follow up on bronchoscopy results culture 10/11/2019, patient seen eval examined during the rounds labs reviewed medications reviewed shortness of breath cough congestion is slightly better now, patient underwent a midline placement shortness of breath still there but severity has improved patient is back on amiodarone, continue steroids continue anticoagulation follow clinical course closely blood pressure remains on the low side 10/10/2019, patient seen eval examined during the rounds patient has been using CPAP machine now, cough congestion shortness breath is improved, his chest x-ray from today showing improvement in infiltrate on the left side some infiltrate on right base has been noted, patient has been getting bronchodilators as well as steroids and broad-spectrum antibiotics, now afebrile heart rate is improved now blood pressure is still marginal, on 5 L oxygen saturation is 90-92% 10/09/2019, patient seen eval examined during the rounds labs reviewed medications reviewed care plan discussed with the patient, shortness of breath is improved A. 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, patient has been struggling with low blood pressures generalized weakness he was discharged from the hospital and earlier September but never really recovered in the last few days has been having low blood pressure was in fact seen in the office due to low blood pressure advised to adjust the medicine, patient developed progressive increased shortness of breath 1 day before in addition is spiked a fever up to 101 blood pressure drop down to 90s, his chest x-ray is showing infiltrate in the left upper lobe and right lower lobe, patient has been started on broad-spectrum antibiotics his been admitted into the hospital with Cardizem drip and his heart rate improved from 170-110-120 he is on supplemental oxygen, he denies any chills, denies any hemoptysis, denies any bowel or bladder related problem, but does complain of severe generalized weakness and tiredness intermittent cough Objective - Vital Signs Vital signs: Vital Signs Temp 97.4 F L 10/13/19 08:00 Pulse 116 H 10/13/19 13:00 Resp 20 10/13/19 13:00 BP 83/54 10/13/19 13:00 Pulse Ox 97 10/13/19 13:00 Intake & Output 10/12/19 10/13/19 10/13/19 18:59 06:59 18:59 Intake Total 960 100 157.340 Output Total 225 230 Balance 960 -125 -72.660 Weight 86.8 kg Intake: IV 100 80 0.9 NS 80 Piperacillin-Tazobactam 3 100 .375 gm In Sodium Chloride 0.9% 100 ml @ 25 mls/hr IVPB Q8H [facility] Rx#: [id number] Intake, IV Titration 77.340 Amount Norepinephrine 4 mg In 17.968 Sodium Chloride 0.9% 250 ml @ 0.05 MCG/KG/MIN 16. 535 mls/hr IV .[id number] [facility] Rx#:[id number] Propofol 1,000 mg In 59.372 Empty Bag 1 bag @ Titrate IV .Q0M [facility] Rx#: [id number] Oral 960 Output: Urine 225 230 Other: Voiding Method Urinal Urinal Indwelling Catheter # Voids 1 # Bowel Movements 1 - Exam - Constitutional General appearance: Intubated sedated with propofol 50 mics also on levo fed HEENT Eyes: anicteric sclerae, EOMI, PERRLA ENT: normal oropharynx Ears: bilateral: normal - Neck Neck: lymphadenopathy Carotids: bilateral: upstroke normal Thyroid: bilateral: normal size - Respiratory Respiratory: bilateral: diminished, wheezing (Fine bilateral), prolonged expiration, negative: dullness, rales, rhonchi - Cardiovascular Rhythm: irregularly irregular Heart sounds: normal: S1, S2 - Gastrointestinal General gastrointestinal: decreased bowel sounds, soft - Neurologic Neurologic: Sedated with propofol - Labs CBC & Chem 7: 10/13/19 04:41 10/13/19 04:41 Labs: Abnormal Lab Results - Last 24 Hours (Table) 10/12/19 10/12/19 10/13/19 Range/Units 16:33 21:24 04:41 WBC 14.7 H (3.8-10.6) k/uL Neutrophils # 13.6 H (1.3-7.7) k/uL Lymphocytes # 0.4 L (1.0-4.8) k/uL ABG pH (7.35-7.45) ABG pO2 (83-108) mmHg ABG HCO3 (21-25) mmol/L ABG Total CO2 (19-24) mmol/L Sodium (137-145) mmol/L Chloride (98-107) mmol/L Creatinine (0.66-1.25) mg/dL Glucose (74-99) mg/dL POC Glucose (mg/dL) 210 H 167 H (75-99) mg/dL Calcium (8.4-10.2) mg/dL Total Protein (6.3-8.2) g/dL Albumin (3.5-5.0) g/dL 10/13/19 10/13/19 10/13/19 Range/Units 04:41 06:45 07:24 WBC (3.8-10.6) k/uL Neutrophils # (1.3-7.7) k/uL Lymphocytes # (1.0-4.8) k/uL ABG pH 7.50 H (7.35-7.45) ABG pO2 81 L (83-108) mmHg ABG HCO3 29 H (21-25) mmol/L ABG Total CO2 31 H (19-24) mmol/L Sodium 132 L (137-145) mmol/L Chloride 94 L (98-107) mmol/L Creatinine 0.65 L (0.66-1.25) mg/dL Glucose 166 H (74-99) mg/dL POC Glucose (mg/dL) 200 H (75-99) mg/dL Calcium 8.3 L (8.4-10.2) mg/dL Total Protein 5.3 L (6.3-8.2) g/dL Albumin 2.7 L (3.5-5.0) g/dL 10/13/19 Range/Units 12:26 WBC (3.8-10.6) k/uL Neutrophils # (1.3-7.7) k/uL Lymphocytes # (1.0-4.8) k/uL ABG pH (7.35-7.45) ABG pO2 (83-108) mmHg ABG HCO3 (21-25) mmol/L ABG Total CO2 (19-24) mmol/L Sodium (137-145) mmol/L Chloride (98-107) mmol/L Creatinine (0.66-1.25) mg/dL Glucose (74-99) mg/dL POC Glucose (mg/dL) 175 H (75-99) mg/dL Calcium (8.4-10.2) mg/dL Total Protein (6.3-8.2) g/dL Albumin (3.5-5.0) g/dL Microbiology - Last 24 Hours (Table) 10/07/19 09:52 Blood Culture - Final Blood No Growth after 144 hours Assessment and Plan Assessment: Acute on chronic respiratory failure A. 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 fib Chronic hypotension Generalized weakness Obstructive sleep apnea Hyperthyroidism Plan: Proceed with bronchoscopy procedure has been explained at length to daughter's Continue IV steroids breathing treatments and broad-spectrum antibiotics Continue diuresis Continue supportive care Prognosis is very guarded Start tube feed Further recommendations pending plan of care as per clinical response of the patient Time with Patient: Greater than 30
[2019-10-13 15:59] LABS: Appearance,BF Cloudy; Color,BF Red
[2019-10-13 16:02] LABS: ABG Base Excess 8.8 mmol/L; ABG HCO3 33 mmol/L (21-25); ABG Oxygen Saturation 99.3 % (94-97); ABG PCO2 45 mmHg (35-45); ABG PH 7.47 (7.35-7.45); ABG PO2 145 mmHg (83-108); ABG TCO2 34 mmol/L (19-24)
--- NOTE | 2019-10-13 16:04 | P.PCN ---
Date of Procedure: 10/13/19 Preoperative Diagnosis: Pneumonia, respiratory failure, congestive heart failure Postoperative Diagnosis: As above Procedure(s) Performed: Bronchoscopy, bronchoalveolar lavage of right upper lobe right lower lobe and left lower lobe Surgeon: Santana Stanley Estimated Blood Loss (ml): 0 Condition: critical Disposition: ICU Indications for Procedure: Respiratory failure, pneumonia, heart failure, atrial fibrillation Operative Findings: Mild erythematous edema of both airways are present no endobronchial mass or lesion identified no significant mucus plugging is seen clear respiratory secretions suctioned and aspirated Description of Procedure: Fiberoptic bronchoscope passed through the endotracheal tube size 8 the jamie were sharp no excessive inflammation or inflammation to changes seen mild erythema and edema noted bilaterally BAL was performed from the right lower lobe left lower lobe and right upper lobe, clear respiratory secretions were seen, no endobronchial mass lesion was seen, patient tolerated procedure well no complication noted
[2019-10-13 16:06] LABS: Allen Test Performed? yes
[2019-10-13 17:37] LABS: Glucose,Whole Blood 211 mg/dL (75-99)
[2019-10-13 17:47] LABS: Nucleated Cells, Body Fluid 1000 /uL; RBC, Body Fluid 4000 /uL
[2019-10-13 17:53] LABS: Mononuclear WBC,Body Fluid 29 %; Polynuclear WBC,Body Fluid 71 %; Total Cells Counted,Body Fluid 100
[2019-10-13] MEDS: ATORVASTATIN 10 MG TAB PO SCH (21:02)
[2019-10-13] MEDS: MONTELUKAST 10 MG TAB PO SCH (21:02)
[2019-10-13 23:42] LABS: Glucose,Whole Blood 229 mg/dL (75-99)
[2019-10-14] MEDS: PROPOFOL 1,000 MG in EMPTY BAG 1 BAG IV SCH ×7 (02:00→23:01)
[2019-10-14] MEDS: PIPERACILLIN-TAZOBACTAM 3.375 GM in SODIUM CHLORIDE 0.9% 100 ML IVPB SCH ×3 (03:52→20:02)
[2019-10-14] MEDS: NOREPINEPHRINE 4 MG in SODIUM CHLORIDE 0.9% 250 ML IV SCH ×3 (04:53→21:26)
[2019-10-14 05:35] LABS: ABG Base Excess 11.4 mmol/L; ABG HCO3 35 mmol/L (21-25); ABG PCO2 47 mmHg (35-45); ABG PH 7.48 (7.35-7.45); ABG PO2 126 mmHg (83-108); ABG TCO2 36 mmol/L (19-24); Allen Test Performed? Yes
[2019-10-14 06:17] LABS: ALT 18 U/L (4-49); AST 28 U/L (17-59); African American GFR (CKD) >90 (>60 ml/min/1.73 sqM); Albumin 2.4 g/dL (3.5-5.0); Alkaline Phosphatase 85 U/L (38-126); Anion Gap 5 mmol/L; Blood Urea Nitrogen 18 mg/dL (9-20); Calcium 8.2 mg/dL (8.4-10.2); Carbon Dioxide 31 mmol/L (22-30); Chloride 98 mmol/L (98-107); Glucose 252 mg/dL (74-99); Non-African American GFR(CKD) >90 (>60 ml/min/1.73 sqM); Potassium 3.3 mmol/L (3.5-5.1); Sodium 134 mmol/L (137-145); Total Bilirubin 0.5 mg/dL (0.2-1.3); Total Protein 4.9 g/dL (6.3-8.2)
[2019-10-14] MEDS ORDERED: Potassium Replacement Protocol 1 EACH MISC MISCELLANE PRN ×2 (06:19→15:01)
[2019-10-14 06:20] LABS: Basophils % (A) 0 %; Eosinophils % (A) 0 %; HCT 41.2 % (39.0-53.0); HGB 13.4 gm/dL (13.0-17.5); Lymphocytes # (A) 0.4 k/uL (1.0-4.8); Lymphocytes % (A) 2 %; MCH 28.8 pg (25.0-35.0); MCHC 32.5 g/dL (31.0-37.0); MCV 88.7 fL (80.0-100.0); Mean Platelet Volume 7.1; Monocytes # (A) 0.6 k/uL (0-1.0); Monocytes % (A) 3 %; Neutrophils # (A) 16.3 k/uL (1.3-7.7); Neutrophils % (A) 94 %; Platelet Count 372 k/uL (150-450); RBC 4.64 m/uL (4.30-5.90); RDW 15.1 % (11.5-15.5); WBC 17.4 k/uL (3.8-10.6)
[2019-10-14] MEDS: INSULIN ASPART (NovoLOG) 100 UNIT/ML VIAL SQ SCH (06:31)
[2019-10-14] MEDS: PANTOPRAZOLE 40 MG TABLET PO SCH (06:31)
[2019-10-14] MEDS: POTASSIUM BICARBONATE/CIT AC 20 MEQ TABLET.EFF NG-TUBE SCH ×4 (06:31→16:25)
--- NOTE | 2019-10-14 06:47 | P.PN ---
Subjective Progress Note Date: 10/14/19 Principal diagnosis: Paroxysmal atrial fibrillation This is a pleasant 79-year-old gentleman with history of paroxysmal atrial fibrillation, chronic obstructive pulmonary disease, coronary artery disease, as well as multiple comorbid conditions including COPD, was admitted to the hospital with COPD exacerbation. Also he was in atrial fibrillation with RVR which we consulted to manage. The patient was seen today, October 142019. Last night he was intubated and currently is on mechanical ventilation. He is hemodynamically unstable and requires small dose of norepinephrine. He continues to be in atrial fibrillation with controlled heart rate on the current dose of amiodarone by mouth as well as metoprolol by mouth. He is in process of being weaned from the norepinephrine. Otherwise he is on oral anticoagulation. The chest x-ray was reviewed this morning and continues to show finding consistent with COPD with superimposed pneumonia. From the cardiovascular standpoint overview, we'll follow-up with the patient on when necessary. Objective - Vital Signs Vital signs: Vital Signs Temp 98.0 F 10/14/19 04:00 Pulse 112 H 10/14/19 06:00 Resp 19 10/14/19 06:00 BP 113/90 10/14/19 06:00 Pulse Ox 96 10/14/19 06:00 Intake & Output 10/13/19 10/13/19 10/14/19 06:59 18:59 06:59 Intake Total 100 345.891 6997.238 Output Total 604 426 3147 Balance -125 138.340 -476.762 Weight 89 kg 88.7 kg Intake: IV 100 280 400 0.9 NS 180 200 Piperacillin-Tazobactam 3 100 100 200 .375 gm In Sodium Chloride 0.9% 100 ml @ 25 mls/hr IVPB Q8H [facility] Rx#: [id number] Intake, IV Titration 177.340 344.238 Amount Norepinephrine 4 mg In 17.968 142.862 Sodium Chloride 0.9% 250 ml @ 0.05 MCG/KG/MIN 16. 535 mls/hr IV .[id number] [facility] Rx#:[id number] Propofol 1,000 mg In 159.372 201.376 Empty Bag 1 bag @ Titrate IV .Q0M [facility] Rx#: [id number] Tube Feeding 66 264 Other 40 90 Output: Urine 836 879 1316 Other: Voiding Method Urinal Indwelling Catheter Indwelling Catheter # Voids 1 - Constitutional General appearance: Present: no acute distress - Respiratory Respiratory: bilateral: diminished - Cardiovascular Rhythm: irregularly irregular Heart sounds: normal: S1, S2 - Labs CBC & Chem 7: 10/14/19 05:23 10/14/19 05:23 Labs: Abnormal Lab Results - Last 24 Hours (Table) 10/13/19 10/13/19 10/13/19 Range/Units 06:45 07:24 12:26 WBC (3.8-10.6) k/uL Neutrophils # (1.3-7.7) k/uL Lymphocytes # (1.0-4.8) k/uL ABG pH 7.50 H (7.35-7.45) ABG pCO2 (35-45) mmHg ABG pO2 81 L (83-108) mmHg ABG HCO3 29 H (21-25) mmol/L ABG Total CO2 31 H (19-24) mmol/L ABG O2 Saturation (94-97) % Sodium (137-145) mmol/L Potassium (3.5-5.1) mmol/L Carbon Dioxide (22-30) mmol/L Creatinine (0.66-1.25) mg/dL Glucose (74-99) mg/dL POC Glucose (mg/dL) 200 H 175 H (75-99) mg/dL Calcium (8.4-10.2) mg/dL Total Protein (6.3-8.2) g/dL Albumin (3.5-5.0) g/dL 10/13/19 10/13/19 10/13/19 Range/Units 15:55 17:35 23:40 WBC (3.8-10.6) k/uL Neutrophils # (1.3-7.7) k/uL Lymphocytes # (1.0-4.8) k/uL ABG pH 7.47 H (7.35-7.45) ABG pCO2 (35-45) mmHg ABG pO2 145 H (83-108) mmHg ABG HCO3 33 H (21-25) mmol/L ABG Total CO2 34 H (19-24) mmol/L ABG O2 Saturation 99.3 H (94-97) % Sodium (137-145) mmol/L Potassium (3.5-5.1) mmol/L Carbon Dioxide (22-30) mmol/L Creatinine (0.66-1.25) mg/dL Glucose (74-99) mg/dL POC Glucose (mg/dL) 211 H 229 H (75-99) mg/dL Calcium (8.4-10.2) mg/dL Total Protein (6.3-8.2) g/dL Albumin (3.5-5.0) g/dL 10/14/19 10/14/19 10/14/19 Range/Units 05:23 05:23 05:32 WBC 17.4 H (3.8-10.6) k/uL Neutrophils # 16.3 H (1.3-7.7) k/uL Lymphocytes # 0.4 L (1.0-4.8) k/uL ABG pH 7.48 H (7.35-7.45) ABG pCO2 47 H (35-45) mmHg ABG pO2 126 H (83-108) mmHg ABG HCO3 35 H (21-25) mmol/L ABG Total CO2 36 H (19-24) mmol/L ABG O2 Saturation 99.0 H (94-97) % Sodium 134 L (137-145) mmol/L Potassium 3.3 L (3.5-5.1) mmol/L Carbon Dioxide 31 H (22-30) mmol/L Creatinine 0.61 L (0.66-1.25) mg/dL Glucose 252 H (74-99) mg/dL POC Glucose (mg/dL) (75-99) mg/dL Calcium 8.2 L (8.4-10.2) mg/dL Total Protein 4.9 L (6.3-8.2) g/dL Albumin 2.4 L (3.5-5.0) g/dL Microbiology - Last 24 Hours (Table) 10/13/19 14:15 Acid Fast Bacilli Smear - Final Bronchoalviolar Lavage - Right Acid Fast Bacilli Culture - Preliminary 10/13/19 14:15 Gram Stain - Preliminary Bronchoalviolar Lavage - Right Bronchial Washings Culture - Preliminary 10/13/19 14:15 Fungal Culture - Preliminary Bronchoalviolar Lavage - Right 10/07/19 09:52 Blood Culture - Final Blood No Growth after 144 hours Assessment and Plan Assessment: Assessment #1 acute on chronic hypoxic respiratory failure #2 COPD exacerbation #3 paroxysmal atrial fibrillation #4 multiple comorbid conditions Plan #1 continue the current medical regimen #2 try to wean the patient from norepinephrine #3 continue the current dose of metoprolol as well as amiodarone #4 continue oral anticoagulation #5 follow-up with the patient on when necessary case
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
[2019-10-14] MEDS: CLOPIDOGREL 75 MG TAB PO SCH (08:09)
[2019-10-14] MEDS: POTASSIUM CHLORIDE ER 20 MEQ TAB.ER PO SCH (08:09)
[2019-10-14] MEDS: methylPREDNISolone SOD SUCCI 125 MG/2 ML VIAL IV SCH ×3 (08:10→23:47)
[2019-10-14] MEDS: AMIODARONE 200 MG TAB PO SCH ×2 (08:10→20:01)
[2019-10-14] MEDS: APIXABAN 5 MG TAB PO SCH ×2 (08:10→20:00)
[2019-10-14] MEDS: MULTIVITAMINS, THERA 1 EACH TAB PO SCH (08:10)
[2019-10-14] MEDS: levETIRAcetam 500 MG TAB PO SCH ×2 (08:10→20:01)
[2019-10-14] MEDS: DILTIAZEM ORAL 30 MG TAB PO SCH ×3 (08:10→21:30)
[2019-10-14] MEDS: FUROSEMIDE 20 MG TAB PO SCH ×2 (08:10→16:19)
[2019-10-14] MEDS: CHLORHEXIDINE GLUCONATE 15 ML CUP MUCOUS MEM SCH ×2 (08:11→20:02)
[2019-10-14] MEDS: ASCORBIC ACID 500 MG TAB PO SCH (08:11)
[2019-10-14] MEDS: METHIMAZOLE 5 MG TAB PO SCH (08:11)
[2019-10-14] MEDS ORDERED: METOPROLOL TARTRATE 50 MG TAB PO SCH ×2 (09:00→21:00)
[2019-10-14] MEDS: SYMBICORT 160-4.5 MCG INHALER INHALATION SCH ×2 (09:02→20:42)
[2019-10-14] MEDS: IPRATROPIUM-ALBUTEROL 3 ML NEB INHALATION SCH ×4 (09:02→21:01)
--- NOTE | 2019-10-14 10:11 | P.PN ---
Subjective Progress Note Date: 10/14/19 This is a 79-year-old male with a known history of atrial fibrillation anticoagulated with Eliquis, COPD, myocardial infarction, coronary artery disease with cardiac stent, seizure disorder and hyperthyroidism in which she was just started on Tapazole during his last hospitalization. Patient was just recently discharged earlier in September from the hospital after being treated for COPD exacerbation and bronchitis. He also at that time had A. fib with RVR and had an increase in his Lopressor and he was started on oral Cardizem. Patient reports taking all of his medications. Patient reports never fully recovering after his hospitalization. He reports having a shortness of breath and left-sided chest pain that started to worsen throughout the night. He has a productive cough at times. Chest x-ray showing left upper lobe and possible mild right lower lobe infiltrates. Temp of 100.2 BP 91/64. Lactic was normal at 1.9. Influenza screening was negative. Patient was given Rocephin Zosyn and Levaquin in the ER for his pneumonia. There is also concerns for sepsis. He and his been given IV fluids. EKG had shown atrial fibrillation with rapid ventricular response heart rate was 175. In the ER patient was started on Cardizem drip. Troponin is elevated at 0.216. Cardiology and pulmonary services are on consult. Patient denies any nausea or vomiting bowel movement changes or urinary symptoms. On 10/08/2019 patient was seen and examined on the medical floor he is alert and oriented 3 in no apparent distress he is still complaining of shortness of breath cough and wheezing otherwise he denies any complaints there is no fever or chills no headache or dizziness no chest pain no nausea or vomiting no abdominal pain no diarrhea and no urinary symptoms. On 10/09/2019 patient is alert and oriented 3 in no distress, he is still complaining of cough, wheezing, and shortness of breath with any activity otherwise he denies any complaints there is no fever or chills no headache or dizziness no chest pain no nausea or vomiting no abdominal pain no diarrhea no burning with urination no frequency or urgency and no hematuria On 10/10/2019 patient is alert and oriented 3. Patient is still having some significant wheezing and shortness of breath. Pulmonary services are following. currently maintained on Levaquin, Zosyn and Solu-Medrol. Cardiac meds also adjusted per cardiology patient having low blood pressure. Medications to be adjusted per cardiology. At this time patient denies chest pain. Patient denies nausea vomiting or diarrhea. Patient denies any urinary burning or frequency. On 10/11/2019 patient is alert and oriented 3. Patient remains short of breath. Heart rate remains elevated cardiology and pulmonary services are following. Patient has been started on amiodarone. Patient remains on Solu- Medrol, Levaquin and Zosyn. Pulmonary services are following. Patient remains on eliquis for anticoagulation. At this time patient denies chest pain. Patient denies nausea vomiting or diarrhea. Patient denies any urinary burning or frequency On 10/12/2019 patient has elected 903. Patient's daughter is at bedside. Patient showing minimal improvement. Due to patient's minimal improvement and continued decline in respiratory status remaining transfer to tertiary facility. Transfer to [facility] in progress family in agreement. Patient remains on IV Solu-Medrol Levaquin and Zosyn. Patient was started on amiodarone Per cardiology due to A. fib RVR. At this time patient denies any nausea vomiting or diarrhea. Patient denies any urinary burning or frequency On 10/13/2019 patient was moved to the intensive care unit due to declining respiratory status. Patient has been accepted at [facility] but there are currently no beds available. Pulmonary team Dr. Stanley did discuss with family this a.m. about possibility of intubation to perform bronchoscopy. Long discussion held with family at bedside this a.m. and questions were answered. At this time family and patient are leaning towards intubation with bronchoscopy. Family and patient are aware that patient's outcome might not change with intubation and bronchoscopy. Family and patient verbalized understanding and plan to move forward with bronchoscopy and intubation. Patient remains on high flow nasal cannula. Blood pressure remains marginal. Patient has been transitioned to by mouth amiodarone. Cardiology pulmonary and infectious disease following On 10/14/2019 patient underwent planned intubation with bronchoscopy per Dr. Stanley. Patient is currently sedated on mechanical ventilation resting comfortably in the ICU. Patient is on small dose of pressure support medication Levophed likely secondary to sedation. Heart rate has improved. Urine output adequate. Bronchial washings sent for cytology. Objective - Vital Signs Vital signs: Vital Signs Temp 98.3 F 10/14/19 08:00 Pulse 118 H 10/14/19 10:00 Resp 17 10/14/19 10:00 BP 92/64 10/14/19 10:00 Pulse Ox 95 10/14/19 10:00 Intake & Output 10/13/19 10/14/19 10/14/19 18:59 06:59 18:59 Intake Total 839.411 2983.238 430.571 Output Total 425 1575 390 Balance 138.340 -476.762 40.571 Weight 89 kg 88.7 kg Intake: IV 280 400 80 0.9 NS 180 200 80 Piperacillin-Tazobactam 3 100 200 .375 gm In Sodium Chloride 0.9% 100 ml @ 25 mls/hr IVPB Q8H [facility] Rx#: [id number] Intake, IV Titration 177.340 344.238 142.571 Amount Norepinephrine 4 mg In 17.968 142.862 55.337 Sodium Chloride 0.9% 250 ml @ 0.05 MCG/KG/MIN 16. 535 mls/hr IV .[id number] [facility] Rx#:[id number] Propofol 1,000 mg In 159.372 201.376 87.234 Empty Bag 1 bag @ Titrate IV .Q0M [facility] Rx#: [id number] Tube Feeding 66 264 88 Other 40 90 120 Output: Urine 425 1575 390 Other: Voiding Method Indwelling Catheter Indwelling Catheter Indwelling Catheter # Voids 1 - Exam HEENT head normocephalic and atraumatic Neck is supple no JVD no goiter no lymphadenopathy Chest exam reveals diffuse crackles in both lung villarreal with wheezing Cardiac exam reveals regular heart sounds S1 and S2 no gallops no murmurs Abdomen is soft nontender no organomegaly with normal bowel sounds Extremity exam reveals no edema no cyanosis or clubbing Neurological examination patient is alert and oriented 3 no focal neurological deficit - Labs CBC & Chem 7: 10/14/19 05:23 10/14/19 05:23 Labs: Abnormal Lab Results - Last 24 Hours (Table) 10/13/19 10/13/19 10/13/19 Range/Units 12:26 15:55 17:35 WBC (3.8-10.6) k/uL Neutrophils # (1.3-7.7) k/uL Lymphocytes # (1.0-4.8) k/uL ABG pH 7.47 H (7.35-7.45) ABG pCO2 (35-45) mmHg ABG pO2 145 H (83-108) mmHg ABG HCO3 33 H (21-25) mmol/L ABG Total CO2 34 H (19-24) mmol/L ABG O2 Saturation 99.3 H (94-97) % Sodium (137-145) mmol/L Potassium (3.5-5.1) mmol/L Carbon Dioxide (22-30) mmol/L Creatinine (0.66-1.25) mg/dL Glucose (74-99) mg/dL POC Glucose (mg/dL) 175 H 211 H (75-99) mg/dL Calcium (8.4-10.2) mg/dL Total Protein (6.3-8.2) g/dL Albumin (3.5-5.0) g/dL 10/13/19 10/14/19 10/14/19 Range/Units 23:40 05:23 05:23 WBC 17.4 H (3.8-10.6) k/uL Neutrophils # 16.3 H (1.3-7.7) k/uL Lymphocytes # 0.4 L (1.0-4.8) k/uL ABG pH (7.35-7.45) ABG pCO2 (35-45) mmHg ABG pO2 (83-108) mmHg ABG HCO3 (21-25) mmol/L ABG Total CO2 (19-24) mmol/L ABG O2 Saturation (94-97) % Sodium 134 L (137-145) mmol/L Potassium 3.3 L (3.5-5.1) mmol/L Carbon Dioxide 31 H (22-30) mmol/L Creatinine 0.61 L (0.66-1.25) mg/dL Glucose 252 H (74-99) mg/dL POC Glucose (mg/dL) 229 H (75-99) mg/dL Calcium 8.2 L (8.4-10.2) mg/dL Total Protein 4.9 L (6.3-8.2) g/dL Albumin 2.4 L (3.5-5.0) g/dL 10/14/19 Range/Units 05:32 WBC (3.8-10.6) k/uL Neutrophils # (1.3-7.7) k/uL Lymphocytes # (1.0-4.8) k/uL ABG pH 7.48 H (7.35-7.45) ABG pCO2 47 H (35-45) mmHg ABG pO2 126 H (83-108) mmHg ABG HCO3 35 H (21-25) mmol/L ABG Total CO2 36 H (19-24) mmol/L ABG O2 Saturation 99.0 H (94-97) % Sodium (137-145) mmol/L Potassium (3.5-5.1) mmol/L Carbon Dioxide (22-30) mmol/L Creatinine (0.66-1.25) mg/dL Glucose (74-99) mg/dL POC Glucose (mg/dL) (75-99) mg/dL Calcium (8.4-10.2) mg/dL Total Protein (6.3-8.2) g/dL Albumin (3.5-5.0) g/dL Microbiology - Last 24 Hours (Table) 10/13/19 14:15 Acid Fast Bacilli Smear - Final Bronchoalviolar Lavage - Right Acid Fast Bacilli Culture - Preliminary 10/13/19 14:15 Gram Stain - Preliminary Bronchoalviolar Lavage - Right Bronchial Washings Culture - Preliminary 10/13/19 14:15 Fungal Culture - Preliminary Bronchoalviolar Lavage - Right 10/07/19 09:52 Blood Culture - Final Blood No Growth after 144 hours Assessment and Plan Assessment: 1. Shortness of breath multifactorial likely related to pneumonia, COPD exacerbation, fluid overload and atrial fibrillation with rapid ventricular response. Pulmonary service and cardiology on consult 2. Acute on chronic respiratory failure requiring mechanical intubation. Patient underwent planned bronchoscopy with intubation on 10/13/2019 bronchial washings sent for cytology. Dr. Lizeth kuo for critical care and pulmonary services 3. Pneumonia with sepsis present on admission. Chest x-ray showing a left upper lobe and possible mild right lower lobe infiltrates. Patient given 1 dose of Rocephin in the ER and started on Zosyn and Levaquin in the ER. Patient did have a temp of 100.2 and blood pressure of 91/64. Influenza screen negative. Pulmonary services are following. Patient remains on Solu-Medrol, Zosyn and Levaquin. Sputum cultures currently showing no growth. Infectious disease following. Patient currently maintained on Zosyn and Levaquin 4. Hypotension likely secondary to sedation and atrial fibrillation. Patient currently on a small dose of Levophed for pressure support 5. Atrial fibrillation with rapid ventricular response. Currently on a Cardizem drip. Cardiology on consult. Cardizem drip has been DC'd. Patient started on verapamil. Verapamil DC'd due to hypotension. Patient has been transitioned to by mouth amiodarone 6. Patient has a known history of chronic atrial fibrillation anticoagulated with Eliquis. 7. Chest pain with Elevated troponin: Continue monitor cardiac enzymes. Cardiology on consult 8. Acute COPD exacerbation: Start IV Solu-Medrol 60 mg IV every 6 hours. Continue DuoNeb updraft treatments. Pulmonary services consulted 9. Hyperthyroidism: Resume patient's Tapazole. TSH level 2.430 10. Acute on Chronic diastolic CHF exacerbation. Echo from August shows an EF of 55-60%. Patient did receive 1 dose of IV Lasix in the ER. BNP 1470. By mouth Lasix has been ordered per cardiology 11. Hyponatremia: Sodium is 130 on admission. We'll monitor. Sodium improving to 134 12. History of myocardial infarction with coronary artery disease and stent 13. History of seizure disorder on Keppra 14. Acute on chronic diastolic heart failure. Patient was given 1 dose of IV Lasix per cardiology. Maintained on oral Lasix 20 mg twice a day GI prophylaxis Protonix and DVT prophylaxis Eliquis Family has decided to cancel transfer to [facility] Patient remains in the intensive care unit on mechanical ventilation and sedation Pulmonary services, cardiology and infectious disease following I performed an examination of the patient and discussed their management with the Nurse Practitioner. I have reviewed the Nurse Practitioner's notes and agree with the documented findings and plan of care
[2019-10-14 11:52] LABS: Glucose,Whole Blood 283 mg/dL (75-99)
[2019-10-14] MEDS ORDERED: INSULIN REGULAR BOLUS (FROM DRIP BAG) IV PRN ×2 (11:53→11:58)
[2019-10-14] MEDS: INSULIN REGULAR 100 UNIT in SODIUM CHLORIDE 0.9% 100 ML IV SCH (12:25)
[2019-10-14] MEDS: LEVOFLOXACIN 750 MG TAB PO SCH (12:39)
[2019-10-14 13:08] LABS: Glucose,Whole Blood 295 mg/dL (75-99)
--- NOTE | 2019-10-14 13:43 | P.PN ---
Subjective Progress Note Date: 10/14/19 (Critical care time 35 minutes) Principal diagnosis: A. 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 fib Chronic hypotension Generalized weakness Obstructive sleep apnea Hyperthyroidism 10/14/2019, patient seen eval examined during the rounds labs reviewed medications reviewed care plan discussed with the staff at length, patient remains sedated with 50 of propofol, patient is on levo fed to have adequate blood pressure, patient was having frequent PVCs with A. fib with RVR, we will discuss with cardiovascular service about an another infusion of IV amiodarone, in the meantime we'll check labs including mag and phosphorus, currently patient is on assist control with a rate of 16 breathing about 28 tidal volume of 455 of PEEP and 50% oxygen, but patient was low has been repleted, magnesium and phosphorous levels are pending, cultures from respiratory secretions reviewed so far has been negative, patient is tolerating tube feed well urine output is adequate 10/13/2019, patient seen eval examined during the rounds labs reviewed medications reviewed radiographic studies reviewed as well patient is intubated due to ongoing hypoxia respiratory distress and being tired out, his chest x-ray continued to show a diffuse interstitial lung marking bilaterally postintubation chest x-ray showed stable ET tube and NG tube, patient has been is on assist control rate of 16 tidal volume of 450 with PEEP of 500% oxygen arterial blood gases pending I have a detailed discussion with the family including 2 daughters plan is to proceed with bronchoscopy for pulmonary toilet and sampling of lower airway, patient remain on the bronchodilator along with amiodarone and anticoagulation with Eliquis, patient remains on broad-spectrum antibiotics along with IV steroids rate is still not very well controlled 100-120 atrial fibrillation with RVR, respiratory secretions are stable, white cell count is decreased to 14,700, labs reviewed the renal function continued to improve, patient is having adequate output will plan to start patient on tube feed continue current medication and follow up on bronchoscopy results culture 10/11/2019, patient seen eval examined during the rounds labs reviewed medications reviewed shortness of breath cough congestion is slightly better now, patient underwent a midline placement shortness of breath still there but severity has improved patient is back on amiodarone, continue steroids continue anticoagulation follow clinical course closely blood pressure remains on the low side 10/10/2019, patient seen eval examined during the rounds patient has been using CPAP machine now, cough congestion shortness breath is improved, his chest x-ray from today showing improvement in infiltrate on the left side some infiltrate on right base has been noted, patient has been getting bronchodilators as well as steroids and broad-spectrum antibiotics, now afebrile heart rate is improved now blood pressure is still marginal, on 5 L oxygen saturation is 90-92% 10/09/2019, patient seen eval examined during the rounds labs reviewed medications reviewed care plan discussed with the patient, shortness of breath is improved A. 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, patient has been struggling with low blood pressures generalized weakness he was discharged from the hospital and earlier September but never really recovered in the last few days has been having low blood pressure was in fact seen in the office due to low blood pressure advised to adjust the medicine, patient developed progressive increased shortness of breath 1 day before in addition is spiked a fever up to 101 blood pressure drop down to 90s, his chest x-ray is showing infiltrate in the left upper lobe and right lower lobe, patient has been started on broad-spectrum antibiotics his been admitted into the hospital with Cardizem drip and his heart rate improved from 170-110-120 he is on supplemental oxygen, he denies any chills, denies any hemoptysis, denies any bowel or bladder related problem, but does complain of severe generalized weakness and tiredness intermittent cough Objective - Vital Signs Vital signs: Vital Signs Temp 98.6 F 10/14/19 12:00 Pulse 120 H 10/14/19 13:00 Resp 26 H 10/14/19 13:00 BP 110/87 10/14/19 13:00 Pulse Ox 93 L 10/14/19 13:00 Intake & Output 10/13/19 10/14/19 10/14/19 18:59 06:59 18:59 Intake Total 047.894 1663.238 718.814 Output Total 425 1575 675 Balance 138.340 -476.762 43.814 Weight 89 kg 88.7 kg 88.7 kg Intake: IV 280 400 140 0.9 NS 180 200 140 Piperacillin-Tazobactam 3 100 200 .375 gm In Sodium Chloride 0.9% 100 ml @ 25 mls/hr IVPB Q8H [facility] Rx#: [id number] Intake, IV Titration 177.340 344.238 274.814 Amount Norepinephrine 4 mg In 17.968 142.862 87.580 Sodium Chloride 0.9% 250 ml @ 0.05 MCG/KG/MIN 16. 535 mls/hr IV .[id number] [facility] Rx#:[id number] Propofol 1,000 mg In 159.372 201.376 187.234 Empty Bag 1 bag @ Titrate IV .Q0M [facility] Rx#: [id number] Tube Feeding 66 264 154 Other 40 90 150 Output: Urine 425 1575 675 Other: Voiding Method Indwelling Catheter Indwelling Catheter Indwelling Catheter # Voids 1 - Exam - Constitutional General appearance: Intubated sedated with propofol 50 mics also on levofed HEENT Eyes: anicteric sclerae, EOMI, PERRLA ENT: normal oropharynx Ears: bilateral: normal - Neck Neck: lymphadenopathy Carotids: bilateral: upstroke normal Thyroid: bilateral: normal size - Respiratory Respiratory: bilateral: diminished, wheezing (Fine bilateral), prolonged expiration, negative: dullness, rales, rhonchi - Cardiovascular Rhythm: irregularly irregular Heart sounds: normal: S1, S2 - Gastrointestinal General gastrointestinal: decreased bowel sounds, soft - Neurologic Neurologic: Sedated with propofol - Labs CBC & Chem 7: 10/14/19 05:23 10/14/19 05:23 Labs: Abnormal Lab Results - Last 24 Hours (Table) 10/13/19 10/13/19 10/13/19 Range/Units 15:55 17:35 23:40 WBC (3.8-10.6) k/uL Neutrophils # (1.3-7.7) k/uL Lymphocytes # (1.0-4.8) k/uL ABG pH 7.47 H (7.35-7.45) ABG pCO2 (35-45) mmHg ABG pO2 145 H (83-108) mmHg ABG HCO3 33 H (21-25) mmol/L ABG Total CO2 34 H (19-24) mmol/L ABG O2 Saturation 99.3 H (94-97) % Sodium (137-145) mmol/L Potassium (3.5-5.1) mmol/L Carbon Dioxide (22-30) mmol/L Creatinine (0.66-1.25) mg/dL Glucose (74-99) mg/dL POC Glucose (mg/dL) 211 H 229 H (75-99) mg/dL Calcium (8.4-10.2) mg/dL Total Protein (6.3-8.2) g/dL Albumin (3.5-5.0) g/dL 10/14/19 10/14/19 10/14/19 Range/Units 05:23 05:23 05:32 WBC 17.4 H (3.8-10.6) k/uL Neutrophils # 16.3 H (1.3-7.7) k/uL Lymphocytes # 0.4 L (1.0-4.8) k/uL ABG pH 7.48 H (7.35-7.45) ABG pCO2 47 H (35-45) mmHg ABG pO2 126 H (83-108) mmHg ABG HCO3 35 H (21-25) mmol/L ABG Total CO2 36 H (19-24) mmol/L ABG O2 Saturation 99.0 H (94-97) % Sodium 134 L (137-145) mmol/L Potassium 3.3 L (3.5-5.1) mmol/L Carbon Dioxide 31 H (22-30) mmol/L Creatinine 0.61 L (0.66-1.25) mg/dL Glucose 252 H (74-99) mg/dL POC Glucose (mg/dL) (75-99) mg/dL Calcium 8.2 L (8.4-10.2) mg/dL Total Protein 4.9 L (6.3-8.2) g/dL Albumin 2.4 L (3.5-5.0) g/dL 10/14/19 10/14/19 Range/Units 11:51 13:06 WBC (3.8-10.6) k/uL Neutrophils # (1.3-7.7) k/uL Lymphocytes # (1.0-4.8) k/uL ABG pH (7.35-7.45) ABG pCO2 (35-45) mmHg ABG pO2 (83-108) mmHg ABG HCO3 (21-25) mmol/L ABG Total CO2 (19-24) mmol/L ABG O2 Saturation (94-97) % Sodium (137-145) mmol/L Potassium (3.5-5.1) mmol/L Carbon Dioxide (22-30) mmol/L Creatinine (0.66-1.25) mg/dL Glucose (74-99) mg/dL POC Glucose (mg/dL) 283 H 295 H (75-99) mg/dL Calcium (8.4-10.2) mg/dL Total Protein (6.3-8.2) g/dL Albumin (3.5-5.0) g/dL Microbiology - Last 24 Hours (Table) 10/13/19 14:15 Gram Stain - Preliminary Bronchoalviolar Lavage - Right Bronchial Washings Culture - Preliminary Palak albicans 10/13/19 14:15 Acid Fast Bacilli Smear - Final Bronchoalviolar Lavage - Right Acid Fast Bacilli Culture - Preliminary 10/13/19 14:15 Fungal Culture - Preliminary Bronchoalviolar Lavage - Right 10/07/19 09:52 Blood Culture - Final Blood No Growth after 144 hours Assessment and Plan Assessment: Acute on chronic respiratory failure A. fib with rapid ventricular response Frequent PVCs with electrolyte imbalance including hypokalemia suspect also magnesium and phosphorus Left upper lobe and right lower lobe pneumonia Acute COPD exacerbation Acute congestive heart failure related to diastolic and systolic heart failure and A. fib Chronic hypotension Generalized weakness Obstructive sleep apnea Hyperthyroidism Plan: Bronchoscopy results and reports reviewed Check labs including magnesium and phosphorus and potassium levels and replete as per protocol Will discuss with cardiovascular services if patient needs an another infusion of IV amiodarone Continue IV steroids breathing treatments and broad-spectrum antibiotics Continue diuresis Continue supportive care Prognosis is very guarded Continue to feed tube feed Further recommendations pending plan of care as per clinical response of the patient
[2019-10-14] MEDS: METOPROLOL TARTRATE 50 MG TAB PO SCH ×2 (13:45→20:01)
[2019-10-14 13:54] LABS: Glucose,Whole Blood 251 mg/dL (75-99)
--- NOTE | 2019-10-14 14:30 | PN ---
PROGRESS NOTE DATE OF SERVICE: 10/14/2019 REASON FOR FOLLOWUP: Pneumonia. INTERVAL HISTORY: The patient was intubated yesterday because of worsening respiratory status. Patient subsequently had bronchoscopy. Patient is currently afebrile and hemodynamically stable. Not on any pressor support. FiO2 is currently at 50%. No significant surrounding , the patient has been surrounding his tube feed and no diarrhea been reported. PHYSICAL EXAMINATION: Blood pressure 130/87, pulse of 120, temperature 98.6, he is 93% on 50% FiO2. General description is an elderly male, lying in bed in no distress. RESPIRATORY SYSTEM: Unlabored breathing, decreased breath sounds at the base, no wheeze. HEART: S1, S2. Regular rate and rhythm. ABDOMEN: Soft, no tenderness. LABS: Hemoglobin is 13.4, white count of 13.4, BUN of 18, creatinine 0.64. DIAGNOSTIC IMPRESSION AND PLAN: Patient with acute respiratory failure, likely multifactorial with a possible fluid related underlying pneumonia, less likely not excluded. We will maintain the patient on Rocephin while waiting for the cultures to finalize and monitor his clinical course closely. Continue supportive care. MMODL / IJN: [id number] /
[2019-10-14 14:38] LABS: Magnesium 2.2 mg/dL (1.6-2.3); Potassium 3.2 mmol/L (3.5-5.1)
[2019-10-14 15:00] LABS: Glucose,Whole Blood 239 mg/dL (75-99)
[2019-10-14 16:03] LABS: Glucose,Whole Blood 189 mg/dL (75-99)
[2019-10-14 16:59] LABS: Glucose,Whole Blood 161 mg/dL (75-99)
[2019-10-14 17:56] LABS: Glucose,Whole Blood 131 mg/dL (75-99)
[2019-10-14 18:58] LABS: Glucose,Whole Blood 178 mg/dL (75-99)
[2019-10-14 19:54] LABS: Glucose,Whole Blood 181 mg/dL (75-99)
[2019-10-14] MEDS: ATORVASTATIN 10 MG TAB PO SCH (20:00)
[2019-10-14 21:06] LABS: Glucose,Whole Blood 183 mg/dL (75-99)
[2019-10-14] MEDS: MONTELUKAST 10 MG TAB PO SCH (21:30)
[2019-10-14 22:23] LABS: Glucose,Whole Blood 168 mg/dL (75-99)
[2019-10-14 23:10] LABS: Glucose,Whole Blood 150 mg/dL (75-99)
[2019-10-14 23:57] LABS: Glucose,Whole Blood 138 mg/dL (75-99)
[2019-10-15 01:07] LABS: Glucose,Whole Blood 196 mg/dL (75-99)
[2019-10-15 02:08] LABS: Glucose,Whole Blood 189 mg/dL (75-99)
[2019-10-15 03:05] LABS: Glucose,Whole Blood 216 mg/dL (75-99)
[2019-10-15] MEDS: PROPOFOL 1,000 MG in EMPTY BAG 1 BAG IV SCH ×4 (03:11→21:40)
[2019-10-15] MEDS: PIPERACILLIN-TAZOBACTAM 3.375 GM in SODIUM CHLORIDE 0.9% 100 ML IVPB SCH ×3 (03:17→20:05)
[2019-10-15 04:14] LABS: Glucose,Whole Blood 251 mg/dL (75-99)
[2019-10-15 04:55] LABS: Basophils % (A) 0 %; Eosinophils # (A) 0.1 k/uL (0-0.7); Eosinophils % (A) 0 %; HCT 44.7 % (39.0-53.0); HGB 14.2 gm/dL (13.0-17.5); Lymphocytes # (A) 0.6 k/uL (1.0-4.8); Lymphocytes % (A) 3 %; MCH 28.6 pg (25.0-35.0); MCHC 31.8 g/dL (31.0-37.0); MCV 89.7 fL (80.0-100.0); Mean Platelet Volume 7.2; Monocytes # (A) 0.4 k/uL (0-1.0); Monocytes % (A) 2 %; Neutrophils # (A) 17.4 k/uL (1.3-7.7); Neutrophils % (A) 94 %; Platelet Count 384 k/uL (150-450); RBC 4.98 m/uL (4.30-5.90); RDW 15.3 % (11.5-15.5); WBC 18.6 k/uL (3.8-10.6)
[2019-10-15 05:07] LABS: ALT 23 U/L (4-49); AST 28 U/L (17-59); African American GFR (CKD) >90 (>60 ml/min/1.73 sqM); Albumin 2.6 g/dL (3.5-5.0); Alkaline Phosphatase 106 U/L (38-126); Anion Gap 5 mmol/L; Blood Urea Nitrogen 31 mg/dL (9-20); Calcium 8.2 mg/dL (8.4-10.2); Carbon Dioxide 33 mmol/L (22-30); Chloride 98 mmol/L (98-107); Glucose 243 mg/dL (74-99); Non-African American GFR(CKD) 86 (>60 ml/min/1.73 sqM); Potassium 4.2 mmol/L (3.5-5.1); Sodium 136 mmol/L (137-145); Total Bilirubin 0.3 mg/dL (0.2-1.3); Total Protein 5.3 g/dL (6.3-8.2)
[2019-10-15 05:16] LABS: Glucose,Whole Blood 221 mg/dL (75-99)
[2019-10-15] MEDS: NOREPINEPHRINE 4 MG in SODIUM CHLORIDE 0.9% 250 ML IV SCH (05:17)
[2019-10-15 05:36] LABS: ABG Base Excess 11.5 mmol/L; ABG HCO3 35 mmol/L (21-25); ABG Oxygen Saturation 94.8 % (94-97); ABG PCO2 44 mmHg (35-45); ABG PH 7.51 (7.35-7.45); ABG PO2 66 mmHg (83-108); ABG TCO2 36 mmol/L (19-24); Allen Test Performed? Yes
[2019-10-15 06:17] LABS: Glucose,Whole Blood 199 mg/dL (75-99)
[2019-10-15 06:22] LABS: Magnesium 2.4 mg/dL (1.6-2.3); Phosphorus 3.2 mg/dL (2.5-4.5)
[2019-10-15] MEDS: PANTOPRAZOLE 40 MG TABLET PO SCH (06:39)
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
[2019-10-15 07:12] LABS: Glucose,Whole Blood 198 mg/dL (75-99)
[2019-10-15] MEDS: INSULIN REGULAR 100 UNIT in SODIUM CHLORIDE 0.9% 100 ML IV SCH (07:23)
[2019-10-15 08:15] LABS: Glucose,Whole Blood 195 mg/dL (75-99)
[2019-10-15] MEDS: AMIODARONE 200 MG TAB PO SCH ×2 (08:21→20:06)
[2019-10-15] MEDS: methylPREDNISolone SOD SUCCI 125 MG/2 ML VIAL IV SCH ×3 (08:21→23:17)
[2019-10-15] MEDS: APIXABAN 5 MG TAB PO SCH ×2 (08:21→20:07)
[2019-10-15] MEDS: DILTIAZEM ORAL 30 MG TAB PO SCH ×3 (08:22→20:06)
[2019-10-15] MEDS: METOPROLOL TARTRATE 50 MG TAB PO SCH ×2 (08:22→20:06)
[2019-10-15] MEDS: CLOPIDOGREL 75 MG TAB PO SCH (08:22)
[2019-10-15] MEDS: CHLORHEXIDINE GLUCONATE 15 ML CUP MUCOUS MEM SCH ×2 (08:22→20:07)
[2019-10-15] MEDS: METHIMAZOLE 5 MG TAB PO SCH (08:22)
[2019-10-15] MEDS: levETIRAcetam 500 MG TAB PO SCH ×2 (08:22→20:07)
[2019-10-15] MEDS: FUROSEMIDE 20 MG TAB PO SCH ×2 (08:22→15:19)
[2019-10-15] MEDS: ASCORBIC ACID 500 MG TAB PO SCH (08:22)
[2019-10-15] MEDS: POTASSIUM CHLORIDE ER 20 MEQ TAB.ER PO SCH (08:23)
[2019-10-15] MEDS: MULTIVITAMINS, THERA 1 EACH TAB PO SCH (08:23)
[2019-10-15] MEDS: IPRATROPIUM-ALBUTEROL 3 ML NEB INHALATION SCH ×4 (08:49→19:31)
[2019-10-15] MEDS: SYMBICORT 160-4.5 MCG INHALER INHALATION SCH ×2 (08:50→19:31)
[2019-10-15 09:22] LABS: Glucose,Whole Blood 189 mg/dL (75-99)
[2019-10-15 10:04] LABS: Glucose,Whole Blood 147 mg/dL (75-99)
[2019-10-15] MEDS: LEVOFLOXACIN 750 MG TAB PO SCH (11:06)
[2019-10-15 11:11] LABS: Glucose,Whole Blood 136 mg/dL (75-99)
[2019-10-15 11:59] LABS: Glucose,Whole Blood 148 mg/dL (75-99)
[2019-10-15 12:55] LABS: Glucose,Whole Blood 135 mg/dL (75-99)
[2019-10-15 14:00] LABS: Glucose,Whole Blood 157 mg/dL (75-99)
[2019-10-15 15:09] LABS: Glucose,Whole Blood 167 mg/dL (75-99)
[2019-10-15 15:38] LABS: Glucose,Whole Blood 174 mg/dL (75-99)
--- NOTE | 2019-10-15 15:45 | P.PN ---
Subjective Progress Note Date: 10/15/19 This is a 79-year-old male with a known history of atrial fibrillation anticoagulated with Eliquis, COPD, myocardial infarction, coronary artery disease with cardiac stent, seizure disorder and hyperthyroidism in which she was just started on Tapazole during his last hospitalization. Patient was just recently discharged earlier in September from the hospital after being treated for COPD exacerbation and bronchitis. He also at that time had A. fib with RVR and had an increase in his Lopressor and he was started on oral Cardizem. Patient reports taking all of his medications. Patient reports never fully recovering after his hospitalization. He reports having a shortness of breath and left-sided chest pain that started to worsen throughout the night. He has a productive cough at times. Chest x-ray showing left upper lobe and possible mild right lower lobe infiltrates. Temp of 100.2 BP 91/64. Lactic was normal at 1.9. Influenza screening was negative. Patient was given Rocephin Zosyn and Levaquin in the ER for his pneumonia. There is also concerns for sepsis. He and his been given IV fluids. EKG had shown atrial fibrillation with rapid ventricular response heart rate was 175. In the ER patient was started on Cardizem drip. Troponin is elevated at 0.216. Cardiology and pulmonary services are on consult. Patient denies any nausea or vomiting bowel movement changes or urinary symptoms. On 10/08/2019 patient was seen and examined on the medical floor he is alert and oriented 3 in no apparent distress he is still complaining of shortness of breath cough and wheezing otherwise he denies any complaints there is no fever or chills no headache or dizziness no chest pain no nausea or vomiting no abdominal pain no diarrhea and no urinary symptoms. On 10/09/2019 patient is alert and oriented 3 in no distress, he is still complaining of cough, wheezing, and shortness of breath with any activity otherwise he denies any complaints there is no fever or chills no headache or dizziness no chest pain no nausea or vomiting no abdominal pain no diarrhea no burning with urination no frequency or urgency and no hematuria. On 10/10/2019 patient is alert and oriented 3. Patient is still having some significant wheezing and shortness of breath. Pulmonary services are following. currently maintained on Levaquin, Zosyn and Solu-Medrol. Cardiac meds also adjusted per cardiology patient having low blood pressure. Medications to be adjusted per cardiology. At this time patient denies chest pain. Patient denies nausea vomiting or diarrhea. Patient denies any urinary burning or frequency. On 10/11/2019 patient is alert and oriented 3. Patient remains short of breath. Heart rate remains elevated cardiology and pulmonary services are following. Patient has been started on amiodarone. Patient remains on Solu- Medrol, Levaquin and Zosyn. Pulmonary services are following. Patient remains on eliquis for anticoagulation. At this time patient denies chest pain. Patient denies nausea vomiting or diarrhea. Patient denies any urinary burning or frequency On 10/12/2019 patient has elected 903. Patient's daughter is at bedside. Patient showing minimal improvement. Due to patient's minimal improvement and continued decline in respiratory status remaining transfer to tertiary facility. Transfer to [facility] in progress family in agreement. Patient remains on IV Solu-Medrol Levaquin and Zosyn. Patient was started on amiodarone Per cardiology due to A. fib RVR. At this time patient denies any nausea vomiting or diarrhea. Patient denies any urinary burning or frequency On 10/13/2019 patient was moved to the intensive care unit due to declining respiratory status. Patient has been accepted at [facility] but there are currently no beds available. Pulmonary team Dr. Stanley did discuss with family this a.m. about possibility of intubation to perform bronchoscopy. Long discussion held with family at bedside this a.m. and questions were answered. At this time family and patient are leaning towards intubation with bronchoscopy. Family and patient are aware that patient's outcome might not change with intubation and bronchoscopy. Family and patient verbalized understanding and plan to move forward with bronchoscopy and intubation. Patient remains on high flow nasal cannula. Blood pressure remains marginal. Patient has been transitioned to by mouth amiodarone. Cardiology pulmonary and infectious disease following On 10/14/2019 patient underwent planned intubation with bronchoscopy per Dr. Stanley. Patient is currently sedated on mechanical ventilation resting comfortably in the ICU. Patient is on small dose of pressure support medication Levophed likely secondary to sedation. Heart rate has improved. Urine output adequate. Bronchial washings sent for cytology. On 10/15/2019 patient was seen and examined in the ICU currently he is intubated sedated maintained on mechanical ventilation, pulmonary Dr. Stanley is following he underwent bronchoscopy yesterday cultures are so far positive for yeast otherwise no significant findings on bronchoalveolar level as culture Objective - Vital Signs Vital signs: Vital Signs Temp 99.5 F 10/15/19 12:00 Pulse 115 H 10/15/19 15:00 Resp 24 10/15/19 15:00 BP 97/66 10/15/19 15:00 Pulse Ox 94 L 10/15/19 15:00 Intake & Output 10/14/19 10/15/19 10/15/19 18:59 06:59 18:59 Intake Total 9467.435 7619.283 999.057 Output Total 845 420 830 Balance 409.485 891.283 169.057 Weight 88.7 kg 89.6 kg Intake: IV 240 240 260 0.9 NS 240 240 160 Piperacillin-Tazobactam 3 100 .375 gm In Sodium Chloride 0.9% 100 ml @ 25 mls/hr IVPB Q8H [facility] Rx#: [id number] Intake, IV Titration 540.485 879.283 301.057 Amount Insulin Regular 100 unit 49.929 16.615 44.440 In Sodium Chloride 0.9% 100 ml @ Per Protocol IV .Q0M [facility] Rx#:[id number] Norepinephrine 4 mg In 207.408 395.324 139.804 Sodium Chloride 0.9% 250 ml @ 0.05 MCG/KG/MIN 16. 535 mls/hr IV .[id number] [facility] Rx#:[id number] Piperacillin-Tazobactam 3 100 .375 gm In Sodium Chloride 0.9% 100 ml @ 25 mls/hr IVPB Q8H [facility] Rx#: [id number] Propofol 1,000 mg In 283.148 367.344 116.813 Empty Bag 1 bag @ Titrate IV .Q0M [facility] Rx#: [id number] Tube Feeding 264 132 198 Other 210 60 240 Output: Urine 845 420 830 Other: Voiding Method Indwelling Catheter Indwelling Catheter Indwelling Catheter - Exam In general patient is intubated sedated maintained on mechanical ventilation HEENT head normocephalic and atraumatic Neck is supple no JVD no goiter no lymphadenopathy Chest exam reveals diffuse crackles in both lung villarreal with wheezing Cardiac exam reveals regular heart sounds S1 and S2 no gallops no murmurs Abdomen is soft nontender no organomegaly with normal bowel sounds Extremity exam reveals no edema no cyanosis or clubbing - Labs CBC & Chem 7: 10/15/19 04:29 10/15/19 04:29 Labs: Abnormal Lab Results - Last 24 Hours (Table) 10/14/19 10/14/19 10/14/19 Range/Units 16:01 16:57 17:55 WBC (3.8-10.6) k/uL Neutrophils # (1.3-7.7) k/uL Lymphocytes # (1.0-4.8) k/uL ABG pH (7.35-7.45) ABG pO2 (83-108) mmHg ABG HCO3 (21-25) mmol/L ABG Total CO2 (19-24) mmol/L Sodium (137-145) mmol/L Carbon Dioxide (22-30) mmol/L BUN (9-20) mg/dL Glucose (74-99) mg/dL POC Glucose (mg/dL) 189 H 161 H 131 H (75-99) mg/dL Calcium (8.4-10.2) mg/dL Magnesium (1.6-2.3) mg/dL Total Protein (6.3-8.2) g/dL Albumin (3.5-5.0) g/dL 10/14/19 10/14/19 10/14/19 Range/Units 18:56 19:52 21:05 WBC (3.8-10.6) k/uL Neutrophils # (1.3-7.7) k/uL Lymphocytes # (1.0-4.8) k/uL ABG pH (7.35-7.45) ABG pO2 (83-108) mmHg ABG HCO3 (21-25) mmol/L ABG Total CO2 (19-24) mmol/L Sodium (137-145) mmol/L Carbon Dioxide (22-30) mmol/L BUN (9-20) mg/dL Glucose (74-99) mg/dL POC Glucose (mg/dL) 178 H 181 H 183 H (75-99) mg/dL Calcium (8.4-10.2) mg/dL Magnesium (1.6-2.3) mg/dL Total Protein (6.3-8.2) g/dL Albumin (3.5-5.0) g/dL 10/14/19 10/14/19 10/14/19 Range/Units 22:22 23:08 23:55 WBC (3.8-10.6) k/uL Neutrophils # (1.3-7.7) k/uL Lymphocytes # (1.0-4.8) k/uL ABG pH (7.35-7.45) ABG pO2 (83-108) mmHg ABG HCO3 (21-25) mmol/L ABG Total CO2 (19-24) mmol/L Sodium (137-145) mmol/L Carbon Dioxide (22-30) mmol/L BUN (9-20) mg/dL Glucose (74-99) mg/dL POC Glucose (mg/dL) 168 H 150 H 138 H (75-99) mg/dL Calcium (8.4-10.2) mg/dL Magnesium (1.6-2.3) mg/dL Total Protein (6.3-8.2) g/dL Albumin (3.5-5.0) g/dL 10/15/19 10/15/19 10/15/19 Range/Units 01:04 02:06 03:03 WBC (3.8-10.6) k/uL Neutrophils # (1.3-7.7) k/uL Lymphocytes # (1.0-4.8) k/uL ABG pH (7.35-7.45) ABG pO2 (83-108) mmHg ABG HCO3 (21-25) mmol/L ABG Total CO2 (19-24) mmol/L Sodium (137-145) mmol/L Carbon Dioxide (22-30) mmol/L BUN (9-20) mg/dL Glucose (74-99) mg/dL POC Glucose (mg/dL) 196 H 189 H 216 H (75-99) mg/dL Calcium (8.4-10.2) mg/dL Magnesium (1.6-2.3) mg/dL Total Protein (6.3-8.2) g/dL Albumin (3.5-5.0) g/dL 10/15/19 10/15/19 10/15/19 Range/Units 04:12 04:29 04:29 WBC 18.6 H (3.8-10.6) k/uL Neutrophils # 17.4 H (1.3-7.7) k/uL Lymphocytes # 0.6 L (1.0-4.8) k/uL ABG pH (7.35-7.45) ABG pO2 (83-108) mmHg ABG HCO3 (21-25) mmol/L ABG Total CO2 (19-24) mmol/L Sodium 136 L (137-145) mmol/L Carbon Dioxide 33 H (22-30) mmol/L BUN 31 H (9-20) mg/dL Glucose 243 H (74-99) mg/dL POC Glucose (mg/dL) 251 H (75-99) mg/dL Calcium 8.2 L (8.4-10.2) mg/dL Magnesium (1.6-2.3) mg/dL Total Protein 5.3 L (6.3-8.2) g/dL Albumin 2.6 L (3.5-5.0) g/dL 10/15/19 10/15/19 10/15/19 Range/Units 04:29 05:12 05:31 WBC (3.8-10.6) k/uL Neutrophils # (1.3-7.7) k/uL Lymphocytes # (1.0-4.8) k/uL ABG pH 7.51 H (7.35-7.45) ABG pO2 66 L (83-108) mmHg ABG HCO3 35 H (21-25) mmol/L ABG Total CO2 36 H (19-24) mmol/L Sodium (137-145) mmol/L Carbon Dioxide (22-30) mmol/L BUN (9-20) mg/dL Glucose (74-99) mg/dL POC Glucose (mg/dL) 221 H (75-99) mg/dL Calcium (8.4-10.2) mg/dL Magnesium 2.4 H (1.6-2.3) mg/dL Total Protein (6.3-8.2) g/dL Albumin (3.5-5.0) g/dL 10/15/19 10/15/19 10/15/19 Range/Units 06:15 07:10 08:13 WBC (3.8-10.6) k/uL Neutrophils # (1.3-7.7) k/uL Lymphocytes # (1.0-4.8) k/uL ABG pH (7.35-7.45) ABG pO2 (83-108) mmHg ABG HCO3 (21-25) mmol/L ABG Total CO2 (19-24) mmol/L Sodium (137-145) mmol/L Carbon Dioxide (22-30) mmol/L BUN (9-20) mg/dL Glucose (74-99) mg/dL POC Glucose (mg/dL) 199 H 198 H 195 H (75-99) mg/dL Calcium (8.4-10.2) mg/dL Magnesium (1.6-2.3) mg/dL Total Protein (6.3-8.2) g/dL Albumin (3.5-5.0) g/dL 10/15/19 10/15/19 10/15/19 Range/Units 09:21 10:02 11:10 WBC (3.8-10.6) k/uL Neutrophils # (1.3-7.7) k/uL Lymphocytes # (1.0-4.8) k/uL ABG pH (7.35-7.45) ABG pO2 (83-108) mmHg ABG HCO3 (21-25) mmol/L ABG Total CO2 (19-24) mmol/L Sodium (137-145) mmol/L Carbon Dioxide (22-30) mmol/L BUN (9-20) mg/dL Glucose (74-99) mg/dL POC Glucose (mg/dL) 189 H 147 H 136 H (75-99) mg/dL Calcium (8.4-10.2) mg/dL Magnesium (1.6-2.3) mg/dL Total Protein (6.3-8.2) g/dL Albumin (3.5-5.0) g/dL 10/15/19 10/15/19 10/15/19 Range/Units 11:58 12:54 13:56 WBC (3.8-10.6) k/uL Neutrophils # (1.3-7.7) k/uL Lymphocytes # (1.0-4.8) k/uL ABG pH (7.35-7.45) ABG pO2 (83-108) mmHg ABG HCO3 (21-25) mmol/L ABG Total CO2 (19-24) mmol/L Sodium (137-145) mmol/L Carbon Dioxide (22-30) mmol/L BUN (9-20) mg/dL Glucose (74-99) mg/dL POC Glucose (mg/dL) 148 H 135 H 157 H (75-99) mg/dL Calcium (8.4-10.2) mg/dL Magnesium (1.6-2.3) mg/dL Total Protein (6.3-8.2) g/dL Albumin (3.5-5.0) g/dL 10/15/19 10/15/19 Range/Units 15:01 15:36 WBC (3.8-10.6) k/uL Neutrophils # (1.3-7.7) k/uL Lymphocytes # (1.0-4.8) k/uL ABG pH (7.35-7.45) ABG pO2 (83-108) mmHg ABG HCO3 (21-25) mmol/L ABG Total CO2 (19-24) mmol/L Sodium (137-145) mmol/L Carbon Dioxide (22-30) mmol/L BUN (9-20) mg/dL Glucose (74-99) mg/dL POC Glucose (mg/dL) 167 H 174 H (75-99) mg/dL Calcium (8.4-10.2) mg/dL Magnesium (1.6-2.3) mg/dL Total Protein (6.3-8.2) g/dL Albumin (3.5-5.0) g/dL Microbiology - Last 24 Hours (Table) 10/13/19 14:15 Gram Stain - Final Bronchoalviolar Lavage - Right Bronchial Washings Culture - Final Palak albicans Assessment and Plan Plan: 1. Shortness of breath multifactorial likely related to pneumonia, COPD exacerbation, fluid overload and atrial fibrillation with rapid ventricular response. Pulmonary service and cardiology on consult 2. Acute on chronic respiratory failure requiring mechanical intubation. Patient underwent planned bronchoscopy with intubation on 10/13/2019 bronchial washings sent for cytology. Dr. Lizeth kuo for critical care and pulmonary services 3. Pneumonia with sepsis present on admission. Chest x-ray showing a left upper lobe and possible mild right lower lobe infiltrates. Patient given 1 dose of Rocephin in the ER and started on Zosyn and Levaquin in the ER. Patient did have a temp of 100.2 and blood pressure of 91/64. Influenza screen negative. Pulmonary services are following. Patient remains on Solu-Medrol, Zosyn and Levaquin. Sputum cultures currently showing no growth. Infectious disease following. Patient currently maintained on Zosyn and Levaquin 4. Hypotension likely secondary to sedation and atrial fibrillation. Patient currently on a small dose of Levophed for pressure support 5. Atrial fibrillation with rapid ventricular response. Currently on a Cardiz em drip. Cardiology on consult. Cardizem drip has been DC'd. Patient started on verapamil. Verapamil DC'd due to hypotension. Patient has been transitioned to by mouth amiodarone 6. Patient has a known history of chronic atrial fibrillation anticoagulated with Eliquis. 7. Chest pain with Elevated troponin: Continue monitor cardiac enzymes. Cardiology on consult 8. Acute COPD exacerbation: Start IV Solu-Medrol 60 mg IV every 6 hours. Continue DuoNeb updraft treatments. Pulmonary services consulted 9. Hyperthyroidism: Resume patient's Tapazole. TSH level 2.430 10. Acute on Chronic diastolic CHF exacerbation. Echo from August shows an EF of 55-60%. Patient did receive 1 dose of IV Lasix in the ER. BNP 1470. By mouth Lasix has been ordered per cardiology 11. Hyponatremia: Sodium is 130 on admission. We'll monitor. Sodium improving to 134 12. History of myocardial infarction with coronary artery disease and stent 13. History of seizure disorder on Keppra 14. Acute on chronic diastolic heart failure. Patient was given 1 dose of IV Lasix per cardiology. Maintained on oral Lasix 20 mg twice a day GI prophylaxis Protonix and DVT prophylaxis Eliquis Family has decided to cancel transfer to [facility] Patient remains in the intensive care unit on mechanical ventilation and sedation Pulmonary services, cardiology and infectious disease following
[2019-10-15 16:03] LABS: Glucose,Whole Blood 173 mg/dL (75-99)
--- NOTE | 2019-10-15 16:49 | PN ---
PROGRESS NOTE DATE OF SERVICE: 10/15/2019 REASON FOR FOLLOWUP: Pneumonia. INTERVAL HISTORY: The patient is currently afebrile. The patient is hemodynamically stable. , has been tolerating his tube feeds. No significant diarrhea has been reported. PHYSICAL EXAMINATION: Blood pressure 97/66 with pulse of 115, temperature 99.5. He is 94% on 50% FiO2. General description is an elderly male lying in bed in no distress. RESPIRATORY SYSTEM: Unlabored breathing, decreased intensity of breath sounds. No wheeze. HEART: S1, S2. Regular rate and rhythm. ABDOMEN: Soft, no tenderness. LABS: Hemoglobin is 14.2, white count of 18.6, creatinine 0.76. Bronchoscopy culture currently showing Palak albicans. DIAGNOSTIC IMPRESSION AND PLAN: 1. Patient in acute respiratory failure which is likely multifactorial in this patient status post bronchoscopy. Culture has been showing Palak albicans, more likely representing . Will keep the patient on Zosyn at this point and monitor the patient closely. 2. Patient elevated white count more likely side effect and will monitor closely. Continue with supportive care. MMODL / IJN: [id number] /
[2019-10-15 16:53] LABS: Glucose,Whole Blood 186 mg/dL (75-99)
[2019-10-15 18:10] LABS: Glucose,Whole Blood 132 mg/dL (75-99)
[2019-10-15 19:02] LABS: Glucose,Whole Blood 120 mg/dL (75-99)
[2019-10-15 19:46] LABS: Glucose,Whole Blood 186 mg/dL (75-99)
[2019-10-15] MEDS: ATORVASTATIN 10 MG TAB PO SCH (20:07)
[2019-10-15] MEDS: MONTELUKAST 10 MG TAB PO SCH (20:07)
[2019-10-15 20:53] LABS: Glucose,Whole Blood 180 mg/dL (75-99)
[2019-10-15 21:54] LABS: Glucose,Whole Blood 179 mg/dL (75-99)
[2019-10-15 22:59] LABS: Glucose,Whole Blood 145 mg/dL (75-99)
[2019-10-16 00:13] LABS: Glucose,Whole Blood 115 mg/dL (75-99)
[2019-10-16 01:07] LABS: Glucose,Whole Blood 149 mg/dL (75-99)
[2019-10-16 02:07] LABS: Glucose,Whole Blood 161 mg/dL (75-99)
[2019-10-16] MEDS: NOREPINEPHRINE 4 MG in SODIUM CHLORIDE 0.9% 250 ML IV SCH (02:51)
[2019-10-16 03:05] LABS: Glucose,Whole Blood 164 mg/dL (75-99)
[2019-10-16] MEDS: PIPERACILLIN-TAZOBACTAM 3.375 GM in SODIUM CHLORIDE 0.9% 100 ML IVPB SCH ×3 (03:05→20:12)
[2019-10-16 04:10] LABS: Glucose,Whole Blood 170 mg/dL (75-99)
[2019-10-16 05:03] LABS: Glucose,Whole Blood 164 mg/dL (75-99)
[2019-10-16 05:17] LABS: Basophils % (A) 0 %; Eosinophils # (A) 0.1 k/uL (0-0.7); Eosinophils % (A) 0 %; HCT 43.5 % (39.0-53.0); Lymphocytes # (A) 0.7 k/uL (1.0-4.8); Lymphocytes % (A) 4 %; MCHC 32.2 g/dL (31.0-37.0); MCV 89.9 fL (80.0-100.0); Mean Platelet Volume 7.1; Monocytes # (A) 0.6 k/uL (0-1.0); Monocytes % (A) 3 %; Neutrophils # (A) 17.5 k/uL (1.3-7.7); Neutrophils % (A) 92 %; Platelet Count 285 k/uL (150-450); RBC 4.84 m/uL (4.30-5.90); RDW 15.4 % (11.5-15.5); WBC 18.9 k/uL (3.8-10.6)
[2019-10-16 05:24] LABS: ABG Base Excess 15.1 mmol/L; ABG HCO3 38 mmol/L (21-25); ABG Oxygen Saturation 90.8 % (94-97); ABG PCO2 43 mmHg (35-45); ABG PH 7.55 (7.35-7.45); ABG TCO2 39 mmol/L (19-24); Allen Test Performed? Yes
[2019-10-16 05:27] LABS: ALT 21 U/L (4-49); AST 27 U/L (17-59); African American GFR (CKD) >90 (>60 ml/min/1.73 sqM); Albumin 2.4 g/dL (3.5-5.0); Alkaline Phosphatase 85 U/L (38-126); Anion Gap 4 mmol/L; Blood Urea Nitrogen 34 mg/dL (9-20); Calcium 7.9 mg/dL (8.4-10.2); Carbon Dioxide 33 mmol/L (22-30); Chloride 102 mmol/L (98-107); Glucose 164 mg/dL (74-99); Magnesium 2.2 mg/dL (1.6-2.3); Non-African American GFR(CKD) 89 (>60 ml/min/1.73 sqM); Phosphorus 2.6 mg/dL (2.5-4.5); Potassium 3.3 mmol/L (3.5-5.1); Sodium 139 mmol/L (137-145); Total Bilirubin 0.5 mg/dL (0.2-1.3)
[2019-10-16 05:28] LABS: ABG PO2 53 mmHg (83-108)
[2019-10-16] MEDS ORDERED: Potassium Replacement Protocol 1 EACH MISC MISCELLANE PRN (05:33)
[2019-10-16] MEDS: POTASSIUM BICARBONATE/CIT AC 20 MEQ TABLET.EFF NG-TUBE SCH ×2 (06:08→07:22)
[2019-10-16] MEDS: PANTOPRAZOLE 40 MG TABLET PO SCH (06:08)
[2019-10-16 06:14] LABS: Glucose,Whole Blood 143 mg/dL (75-99)
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
[2019-10-16 06:50] LABS: Glucose,Whole Blood 137 mg/dL (75-99)
[2019-10-16] MEDS: IPRATROPIUM-ALBUTEROL 3 ML NEB INHALATION SCH ×4 (08:08→19:52)
[2019-10-16] MEDS: SYMBICORT 160-4.5 MCG INHALER INHALATION SCH ×2 (08:08→19:53)
[2019-10-16 08:16] LABS: Glucose,Whole Blood 155 mg/dL (75-99)
[2019-10-16] MEDS: methylPREDNISolone SOD SUCCI 125 MG/2 ML VIAL IV SCH ×2 (08:31→16:52)
[2019-10-16] MEDS: ASCORBIC ACID 500 MG TAB PO SCH (08:32)
[2019-10-16] MEDS: CLOPIDOGREL 75 MG TAB PO SCH (08:32)
[2019-10-16] MEDS: AMIODARONE 200 MG TAB PO SCH ×2 (08:32→21:49)
[2019-10-16] MEDS: APIXABAN 5 MG TAB PO SCH (08:32)
[2019-10-16] MEDS: CHLORHEXIDINE GLUCONATE 15 ML CUP MUCOUS MEM SCH (08:32)
[2019-10-16] MEDS: MULTIVITAMINS, THERA 1 EACH TAB PO SCH (08:33)
[2019-10-16] MEDS: FUROSEMIDE 20 MG TAB PO SCH ×2 (08:33→17:40)
[2019-10-16] MEDS: METOPROLOL TARTRATE 50 MG TAB PO SCH ×2 (08:33→17:41)
[2019-10-16] MEDS: levETIRAcetam 500 MG TAB PO SCH (08:33)
[2019-10-16] MEDS: POTASSIUM CHLORIDE ER 20 MEQ TAB.ER PO SCH (08:33)
[2019-10-16] MEDS: DILTIAZEM ORAL 30 MG TAB PO SCH ×2 (08:33→17:40)
[2019-10-16] MEDS: METHIMAZOLE 5 MG TAB PO SCH (08:34)
[2019-10-16 09:12] LABS: Glucose,Whole Blood 163 mg/dL (75-99)
[2019-10-16] MEDS: ALPRAZolam 0.25 MG TAB PO PRN (09:53)
--- NOTE | 2019-10-16 10:00 | P.PN ---
Subjective This is Eilzabeth Palomo PA-C dictating a progress note on this patient The patient was interviewed and examined by me as well as by Dr. Lin Case discussed with Dr. Lin and he agrees with the plan of care HPI/interval history Patient is an 79-year-old male with a history of paroxysmal atrial fibrillation, COPD, CAD who is admitted to the hospital with a COPD exacerbation and A. fib with RVR. He remains in the ICU on mechanical ventilation and is still on a low dose of pressors. Cardiology is consulted for management of atrial f ibrillation. He remains in atrial fibrillation with RVR, rates are in the 130s and he is currently on amiodarone 400 mg twice a day, diltiazem 30 mg 3 times a day, and metoprolol 100 mg twice a day. Family is considering comfort care per the nurse. EXAMINATION Patient is afebrile, pulse in the 130s, respirations in the 20s, blood pressure in the 80s over 50s, oxygen saturation 91% on mechanical ventilation Patient seen and examined in the ICU, intubated and sedated Breath sounds equal bilaterally Heart is irregular and tachycardic, no audible murmurs No lower extremity edema REVIEW OF LABS, ECG WBC 18.9, hemoglobin 14, platelets 285, potassium 3.3, BUN 34, creatinine 0.6 IMPRESSION / ASSESSMENT: Acute on chronic hypoxic respiratory failure requiring mechanical ventilation COPD exacerbation Paroxysmal atrial fibrillation with RVR, rates in the 130s, anticoagulated with eliquis History of CAD PLAN: Increase metoprolol to 100 mg 3 times a day for rate control if his blood pressure can tolerate this Continue amiodarone and diltiazem Continue anticoagulation with eliquis Continue statins Objective - Vital Signs Vital signs: Vital Signs Temp 98.1 F 10/16/19 08:00 Pulse 134 H 10/16/19 09:15 Resp 22 10/16/19 09:15 BP 81/57 10/16/19 09:15 Pulse Ox 91 L 10/16/19 09:15 Intake & Output 10/15/19 10/16/19 10/16/19 18:59 06:59 18:59 Intake Total 1321.118 976.710 204.141 Output Total 1190 540 30 Balance 131.118 436.710 174.141 Weight 89.6 kg 89.4 kg Intake: IV 340 260 20 0.9 NS 240 260 20 Piperacillin-Tazobactam 3 100 .375 gm In Sodium Chloride 0.9% 100 ml @ 25 mls/hr IVPB Q8H [facility] Rx#: [id number] Intake, IV Titration 343.118 340.710 42.141 Amount Insulin Regular 100 unit 62.048 26.664 25.065 In Sodium Chloride 0.9% 100 ml @ Per Protocol IV .Q0M [facility] Rx#:[id number] Norepinephrine 4 mg In 150.414 91.294 Sodium Chloride 0.9% 250 ml @ 0.05 MCG/KG/MIN 16. 535 mls/hr IV .[id number] [facility] Rx#:[id number] Piperacillin-Tazobactam 3 100 .375 gm In Sodium Chloride 0.9% 100 ml @ 25 mls/hr IVPB Q8H [facility] Rx#: [id number] Propofol 1,000 mg In 130.656 122.752 17.076 Empty Bag 1 bag @ Titrate IV .Q0M [facility] Rx#: [id number] Tube Feeding 308 286 22 Other 330 90 120 Output: Urine 1190 540 30 Other: Voiding Method Indwelling Catheter Indwelling Catheter Indwelling Catheter - Labs CBC & Chem 7: 10/16/19 04:50 10/16/19 04:50 Labs: Abnormal Lab Results - Last 24 Hours (Table) 10/15/19 10/15/19 10/15/19 Range/Units 10:02 11:10 11:58 WBC (3.8-10.6) k/uL Neutrophils # (1.3-7.7) k/uL Lymphocytes # (1.0-4.8) k/uL ABG pH (7.35-7.45) ABG pO2 (83-108) mmHg ABG HCO3 (21-25) mmol/L ABG Total CO2 (19-24) mmol/L ABG O2 Saturation (94-97) % Potassium (3.5-5.1) mmol/L Carbon Dioxide (22-30) mmol/L BUN (9-20) mg/dL Glucose (74-99) mg/dL POC Glucose (mg/dL) 147 H 136 H 148 H (75-99) mg/dL Calcium (8.4-10.2) mg/dL Total Protein (6.3-8.2) g/dL Albumin (3.5-5.0) g/dL 10/15/19 10/15/19 10/15/19 Range/Units 12:54 13:56 15:01 WBC (3.8-10.6) k/uL Neutrophils # (1.3-7.7) k/uL Lymphocytes # (1.0-4.8) k/uL ABG pH (7.35-7.45) ABG pO2 (83-108) mmHg ABG HCO3 (21-25) mmol/L ABG Total CO2 (19-24) mmol/L ABG O2 Saturation (94-97) % Potassium (3.5-5.1) mmol/L Carbon Dioxide (22-30) mmol/L BUN (9-20) mg/dL Glucose (74-99) mg/dL POC Glucose (mg/dL) 135 H 157 H 167 H (75-99) mg/dL Calcium (8.4-10.2) mg/dL Total Protein (6.3-8.2) g/dL Albumin (3.5-5.0) g/dL 10/15/19 10/15/19 10/15/19 Range/Units 15:36 16:02 16:51 WBC (3.8-10.6) k/uL Neutrophils # (1.3-7.7) k/uL Lymphocytes # (1.0-4.8) k/uL ABG pH (7.35-7.45) ABG pO2 (83-108) mmHg ABG HCO3 (21-25) mmol/L ABG Total CO2 (19-24) mmol/L ABG O2 Saturation (94-97) % Potassium (3.5-5.1) mmol/L Carbon Dioxide (22-30) mmol/L BUN (9-20) mg/dL Glucose (74-99) mg/dL POC Glucose (mg/dL) 174 H 173 H 186 H (75-99) mg/dL Calcium (8.4-10.2) mg/dL Total Protein (6.3-8.2) g/dL Albumin (3.5-5.0) g/dL 10/15/19 10/15/19 10/15/19 Range/Units 18:06 19:01 19:44 WBC (3.8-10.6) k/uL Neutrophils # (1.3-7.7) k/uL Lymphocytes # (1.0-4.8) k/uL ABG pH (7.35-7.45) ABG pO2 (83-108) mmHg ABG HCO3 (21-25) mmol/L ABG Total CO2 (19-24) mmol/L ABG O2 Saturation (94-97) % Potassium (3.5-5.1) mmol/L Carbon Dioxide (22-30) mmol/L BUN (9-20) mg/dL Glucose (74-99) mg/dL POC Glucose (mg/dL) 132 H 120 H 186 H (75-99) mg/dL Calcium (8.4-10.2) mg/dL Total Protein (6.3-8.2) g/dL Albumin (3.5-5.0) g/dL 10/15/19 10/15/19 10/15/19 Range/Units 20:52 21:52 22:55 WBC (3.8-10.6) k/uL Neutrophils # (1.3-7.7) k/uL Lymphocytes # (1.0-4.8) k/uL ABG pH (7.35-7.45) ABG pO2 (83-108) mmHg ABG HCO3 (21-25) mmol/L ABG Total CO2 (19-24) mmol/L ABG O2 Saturation (94-97) % Potassium (3.5-5.1) mmol/L Carbon Dioxide (22-30) mmol/L BUN (9-20) mg/dL Glucose (74-99) mg/dL POC Glucose (mg/dL) 180 H 179 H 145 H (75-99) mg/dL Calcium (8.4-10.2) mg/dL Total Protein (6.3-8.2) g/dL Albumin (3.5-5.0) g/dL 10/16/19 10/16/19 10/16/19 Range/Units 00:11 01:05 02:05 WBC (3.8-10.6) k/uL Neutrophils # (1.3-7.7) k/uL Lymphocytes # (1.0-4.8) k/uL ABG pH (7.35-7.45) ABG pO2 (83-108) mmHg ABG HCO3 (21-25) mmol/L ABG Total CO2 (19-24) mmol/L ABG O2 Saturation (94-97) % Potassium (3.5-5.1) mmol/L Carbon Dioxide (22-30) mmol/L BUN (9-20) mg/dL Glucose (74-99) mg/dL POC Glucose (mg/dL) 115 H 149 H 161 H (75-99) mg/dL Calcium (8.4-10.2) mg/dL Total Protein (6.3-8.2) g/dL Albumin (3.5-5.0) g/dL 10/16/19 10/16/19 10/16/19 Range/Units 03:04 04:08 04:50 WBC 18.9 H (3.8-10.6) k/uL Neutrophils # 17.5 H (1.3-7.7) k/uL Lymphocytes # 0.7 L (1.0-4.8) k/uL ABG pH (7.35-7.45) ABG pO2 (83-108) mmHg ABG HCO3 (21-25) mmol/L ABG Total CO2 (19-24) mmol/L ABG O2 Saturation (94-97) % Potassium (3.5-5.1) mmol/L Carbon Dioxide (22-30) mmol/L BUN (9-20) mg/dL Glucose (74-99) mg/dL POC Glucose (mg/dL) 164 H 170 H (75-99) mg/dL Calcium (8.4-10.2) mg/dL Total Protein (6.3-8.2) g/dL Albumin (3.5-5.0) g/dL 10/16/19 10/16/19 10/16/19 Range/Units 04:50 05:01 05:22 WBC (3.8-10.6) k/uL Neutrophils # (1.3-7.7) k/uL Lymphocytes # (1.0-4.8) k/uL ABG pH 7.55 H (7.35-7.45) ABG pO2 53 L* (83-108) mmHg ABG HCO3 38 H (21-25) mmol/L ABG Total CO2 39 H (19-24) mmol/L ABG O2 Saturation 90.8 L (94-97) % Potassium 3.3 L (3.5-5.1) mmol/L Carbon Dioxide 33 H (22-30) mmol/L BUN 34 H (9-20) mg/dL Glucose 164 H (74-99) mg/dL POC Glucose (mg/dL) 164 H (75-99) mg/dL Calcium 7.9 L (8.4-10.2) mg/dL Total Protein 5.0 L (6.3-8.2) g/dL Albumin 2.4 L (3.5-5.0) g/dL 10/16/19 10/16/19 10/16/19 Range/Units 06:12 06:48 08:14 WBC (3.8-10.6) k/uL Neutrophils # (1.3-7.7) k/uL Lymphocytes # (1.0-4.8) k/uL ABG pH (7.35-7.45) ABG pO2 (83-108) mmHg ABG HCO3 (21-25) mmol/L ABG Total CO2 (19-24) mmol/L ABG O2 Saturation (94-97) % Potassium (3.5-5.1) mmol/L Carbon Dioxide (22-30) mmol/L BUN (9-20) mg/dL Glucose (74-99) mg/dL POC Glucose (mg/dL) 143 H 137 H 155 H (75-99) mg/dL Calcium (8.4-10.2) mg/dL Total Protein (6.3-8.2) g/dL Albumin (3.5-5.0) g/dL 10/16/19 Range/Units 09:10 WBC (3.8-10.6) k/uL Neutrophils # (1.3-7.7) k/uL Lymphocytes # (1.0-4.8) k/uL ABG pH (7.35-7.45) ABG pO2 (83-108) mmHg ABG HCO3 (21-25) mmol/L ABG Total CO2 (19-24) mmol/L ABG O2 Saturation (94-97) % Potassium (3.5-5.1) mmol/L Carbon Dioxide (22-30) mmol/L BUN (9-20) mg/dL Glucose (74-99) mg/dL POC Glucose (mg/dL) 163 H (75-99) mg/dL Calcium (8.4-10.2) mg/dL Total Protein (6.3-8.2) g/dL Albumin (3.5-5.0) g/dL Microbiology - Last 24 Hours (Table) 10/13/19 14:15 Gram Stain - Final Bronchoalviolar Lavage - Right Bronchial Washings Culture - Final Palak albicans
[2019-10-16 10:11] LABS: Glucose,Whole Blood 177 mg/dL (75-99)
[2019-10-16] MEDS: INSULIN REGULAR 100 UNIT in SODIUM CHLORIDE 0.9% 100 ML IV SCH (10:17)
[2019-10-16 10:57] LABS: Glucose,Whole Blood 156 mg/dL (75-99)
[2019-10-16] MEDS: POTASSIUM CHLORIDE 10 MEQ in WATER FOR INJECTION 1 100ML.BAG IVPB SCH ×2 (11:57→13:59)
[2019-10-16 12:10] LABS: Glucose,Whole Blood 137 mg/dL (75-99)
[2019-10-16 13:08] LABS: Glucose,Whole Blood 143 mg/dL (75-99)
[2019-10-16 14:05] LABS: Glucose,Whole Blood 144 mg/dL (75-99)
--- NOTE | 2019-10-16 14:09 | P.PN ---
Subjective Progress Note Date: 10/15/19 Principal diagnosis: A. 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 fib Chronic hypotension Generalized weakness Obstructive sleep apnea Hyperthyroidism 10/15/2019, patient seen eval reexamined during the rounds remains intubated on full ventilator support family is present at bedside detailed discussion was present family expressed their wishes not to keep him on respirator and to extubate early in the morning, when setting reviewed, noted patient is in A. fib with rapid ventricular response however rate has improved now, patient remains in IV steroids and antibiotics and bronchodilators along with the amiodarone la bs reviewed medications reviewed him a last chest x-ray continued to show bibasilar pneumonia/atelectasis along with small effusion, not much change from baseline x-ray may be slight improvement, culture results and reports are all negative so far, critical care time 35 minutes 10/14/2019, patient seen eval examined during the rounds labs reviewed medications reviewed care plan discussed with the staff at length, patient remains sedated with 50 of propofol, patient is on levo fed to have adequate blood pressure, patient was having frequent PVCs with A. fib with RVR, we will discuss with cardiovascular service about an another infusion of IV amiodarone, in the meantime we'll check labs including mag and phosphorus, currently patient is on assist control with a rate of 16 breathing about 28 tidal volume of 455 of PEEP and 50% oxygen, but patient was low has been repleted, magnesium and ph osphorous levels are pending, cultures from respiratory secretions reviewed so far has been negative, patient is tolerating tube feed well urine output is adequate 10/13/2019, patient seen eval examined during the rounds labs reviewed medications reviewed radiographic studies reviewed as well patient is intubated due to ongoing hypoxia respiratory distress and being tired out, his chest x-ray continued to show a diffuse interstitial lung marking bilaterally postintubation chest x-ray showed stable ET tube and NG tube, patient has been is on assist control rate of 16 tidal volume of 450 with PEEP of 500% oxygen arterial blood gases pending I have a detailed discussion with the family including 2 daughters plan is to proceed with bronchoscopy for pulmonary toilet and sampling of lower airway, patient remain on the bronchodilator along with amiodarone and anticoagulation with Eliquis, patient remains on broad-spectrum antibiotics along with IV steroids rate is still not very well controlled 100-120 atrial fibrillation with RVR, respiratory secretions are stable, white cell count is decreased to 14,700, labs reviewed the renal function continued to improve, patient is having adequate output will plan to start patient on tube feed continue current medication and follow up on bronchoscopy results culture 10/11/2019, patient seen eval examined during the rounds labs reviewed medicat ions reviewed shortness of breath cough congestion is slightly better now, patient underwent a midline placement shortness of breath still there but severity has improved patient is back on amiodarone, continue steroids continue anticoagulation follow clinical course closely blood pressure remains on the low side 10/10/2019, patient seen eval examined during the rounds patient has been using CPAP machine now, cough congestion shortness breath is improved, his chest x-ray from today showing improvement in infiltrate on the left side some infiltrate on right base has been noted, patient has been getting bronchodilators as well as steroids and broad-spectrum antibiotics, now afebrile heart rate is improved now blood pressure is still marginal, on 5 L oxygen saturation is 90-92% 10/09/2019, patient seen eval examined during the rounds labs reviewed medications reviewed care plan discussed with the patient, shortness of breath is improved A. 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, patient has been struggling with low blood pressures generalized weakness he was discharged from the hospital and earlier September but never really recovered in the last few days has been having low blood pressure was in fact seen in the office due to low blood pressure advised to adjust the medicine, patient developed progressive increased shortness of breath 1 day before in addition is spiked a fever up to 101 blood pressure drop down to 90s, his chest x-ray is showing infiltrate in the left upper lobe and right lower lobe, patient has been started on broad-spectrum antibiotics his been admitted into the hospital with Cardizem drip and his heart rate improved from 170-110-120 he is on supplemental oxygen, he denies any chills, denies any hemoptysis, denies any bowel or bladder related problem, but does complain of severe generalized weakness and tiredness intermittent cough Objective - Vital Signs Vital signs: Vital Signs Temp 98.5 F 10/15/19 16:00 Pulse 117 H 10/15/19 18:00 Resp 20 10/15/19 18:00 BP 104/80 10/15/19 18:00 Pulse Ox 93 L 10/15/19 18:00 Intake & Output 10/14/19 10/15/19 10/15/19 18:59 06:59 18:59 Intake Total 8360.849 1898.283 1321.118 Output Total 744 902 8867 Balance 409.485 891.283 131.118 Weight 88.7 kg 89.6 kg Intake: IV 240 240 340 0.9 NS 240 240 240 Piperacillin-Tazobactam 3 100 .375 gm In Sodium Chloride 0.9% 100 ml @ 25 mls/hr IVPB Q8H [facility] Rx#: [id number] Intake, IV Titration 540.485 879.283 343.118 Amount Insulin Regular 100 unit 49.929 16.615 62.048 In Sodium Chloride 0.9% 100 ml @ Per Protocol IV .Q0M [facility] Rx#:[id number] Norepinephrine 4 mg In 207.408 395.324 150.414 Sodium Chloride 0.9% 250 ml @ 0.05 MCG/KG/MIN 16. 535 mls/hr IV .[id number] [facility] Rx#:[id number] Piperacillin-Tazobactam 3 100 .375 gm In Sodium Chloride 0.9% 100 ml @ 25 mls/hr IVPB Q8H [facility] Rx#: [id number] Propofol 1,000 mg In 283.148 367.344 130.656 Empty Bag 1 bag @ Titrate IV .Q0M [facility] Rx#: [id number] Tube Feeding 264 132 308 Other 210 60 330 Output: Urine 687 813 1669 Other: Voiding Method Indwelling Catheter Indwelling Catheter Indwelling Catheter - Exam - Constitutional General appearance: Intubated sedated with propofol 50 mics also on levofed HEENT Eyes: anicteric sclerae, EOMI, PERRLA ENT: normal oropharynx Ears: bilateral: normal - Neck Neck: lymphadenopathy Carotids: bilateral: upstroke normal Thyroid: bilateral: normal size - Respiratory Respiratory: bilateral: diminished, wheezing (Fine bilateral), prolonged expiration, negative: dullness, rales, rhonchi - Cardiovascular Rhythm: irregularly irregular Heart sounds: normal: S1, S2 - Gastrointestinal General gastrointestinal: decreased bowel sounds, soft - Neurologic Neurologic: Sedated with propofol - Labs CBC & Chem 7: 10/16/19 04:50 10/16/19 10:26 Labs: Abnormal Lab Results - Last 24 Hours (Table) 10/14/19 10/14/19 10/14/19 Range/Units 18:56 19:52 21:05 WBC (3.8-10.6) k/uL Neutrophils # (1.3-7.7) k/uL Lymphocytes # (1.0-4.8) k/uL ABG pH (7.35-7.45) ABG pO2 (83-108) mmHg ABG HCO3 (21-25) mmol/L ABG Total CO2 (19-24) mmol/L Sodium (137-145) mmol/L Carbon Dioxide (22-30) mmol/L BUN (9-20) mg/dL Glucose (74-99) mg/dL POC Glucose (mg/dL) 178 H 181 H 183 H (75-99) mg/dL Calcium (8.4-10.2) mg/dL Magnesium (1.6-2.3) mg/dL Total Protein (6.3-8.2) g/dL Albumin (3.5-5.0) g/dL 10/14/19 10/14/19 10/14/19 Range/Units 22:22 23:08 23:55 WBC (3.8-10.6) k/uL Neutrophils # (1.3-7.7) k/uL Lymphocytes # (1.0-4.8) k/uL ABG pH (7.35-7.45) ABG pO2 (83-108) mmHg ABG HCO3 (21-25) mmol/L ABG Total CO2 (19-24) mmol/L Sodium (137-145) mmol/L Carbon Dioxide (22-30) mmol/L BUN (9-20) mg/dL Glucose (74-99) mg/dL POC Glucose (mg/dL) 168 H 150 H 138 H (75-99) mg/dL Calcium (8.4-10.2) mg/dL Magnesium (1.6-2.3) mg/dL Total Protein (6.3-8.2) g/dL Albumin (3.5-5.0) g/dL 10/15/19 10/15/19 10/15/19 Range/Units 01:04 02:06 03:03 WBC (3.8-10.6) k/uL Neutrophils # (1.3-7.7) k/uL Lymphocytes # (1.0-4.8) k/uL ABG pH (7.35-7.45) ABG pO2 (83-108) mmHg ABG HCO3 (21-25) mmol/L ABG Total CO2 (19-24) mmol/L Sodium (137-145) mmol/L Carbon Dioxide (22-30) mmol/L BUN (9-20) mg/dL Glucose (74-99) mg/dL POC Glucose (mg/dL) 196 H 189 H 216 H (75-99) mg/dL Calcium (8.4-10.2) mg/dL Magnesium (1.6-2.3) mg/dL Total Protein (6.3-8.2) g/dL Albumin (3.5-5.0) g/dL 10/15/19 10/15/19 10/15/19 Range/Units 04:12 04:29 04:29 WBC 18.6 H (3.8-10.6) k/uL Neutrophils # 17.4 H (1.3-7.7) k/uL Lymphocytes # 0.6 L (1.0-4.8) k/uL ABG pH (7.35-7.45) ABG pO2 (83-108) mmHg ABG HCO3 (21-25) mmol/L ABG Total CO2 (19-24) mmol/L Sodium 136 L (137-145) mmol/L Carbon Dioxide 33 H (22-30) mmol/L BUN 31 H (9-20) mg/dL Glucose 243 H (74-99) mg/dL POC Glucose (mg/dL) 251 H (75-99) mg/dL Calcium 8.2 L (8.4-10.2) mg/dL Magnesium (1.6-2.3) mg/dL Total Protein 5.3 L (6.3-8.2) g/dL Albumin 2.6 L (3.5-5.0) g/dL 10/15/19 10/15/19 10/15/19 Range/Units 04:29 05:12 05:31 WBC (3.8-10.6) k/uL Neutrophils # (1.3-7.7) k/uL Lymphocytes # (1.0-4.8) k/uL ABG pH 7.51 H (7.35-7.45) ABG pO2 66 L (83-108) mmHg ABG HCO3 35 H (21-25) mmol/L ABG Total CO2 36 H (19-24) mmol/L Sodium (137-145) mmol/L Carbon Dioxide (22-30) mmol/L BUN (9-20) mg/dL Glucose (74-99) mg/dL POC Glucose (mg/dL) 221 H (75-99) mg/dL Calcium (8.4-10.2) mg/dL Magnesium 2.4 H (1.6-2.3) mg/dL Total Protein (6.3-8.2) g/dL Albumin (3.5-5.0) g/dL 10/15/19 10/15/19 10/15/19 Range/Units 06:15 07:10 08:13 WBC (3.8-10.6) k/uL Neutrophils # (1.3-7.7) k/uL Lymphocytes # (1.0-4.8) k/uL ABG pH (7.35-7.45) ABG pO2 (83-108) mmHg ABG HCO3 (21-25) mmol/L ABG Total CO2 (19-24) mmol/L Sodium (137-145) mmol/L Carbon Dioxide (22-30) mmol/L BUN (9-20) mg/dL Glucose (74-99) mg/dL POC Glucose (mg/dL) 199 H 198 H 195 H (75-99) mg/dL Calcium (8.4-10.2) mg/dL Magnesium (1.6-2.3) mg/dL Total Protein (6.3-8.2) g/dL Albumin (3.5-5.0) g/dL 10/15/19 10/15/19 10/15/19 Range/Units 09:21 10:02 11:10 WBC (3.8-10.6) k/uL Neutrophils # (1.3-7.7) k/uL Lymphocytes # (1.0-4.8) k/uL ABG pH (7.35-7.45) ABG pO2 (83-108) mmHg ABG HCO3 (21-25) mmol/L ABG Total CO2 (19-24) mmol/L Sodium (137-145) mmol/L Carbon Dioxide (22-30) mmol/L BUN (9-20) mg/dL Glucose (74-99) mg/dL POC Glucose (mg/dL) 189 H 147 H 136 H (75-99) mg/dL Calcium (8.4-10.2) mg/dL Magnesium (1.6-2.3) mg/dL Total Protein (6.3-8.2) g/dL Albumin (3.5-5.0) g/dL 10/15/19 10/15/19 10/15/19 Range/Units 11:58 12:54 13:56 WBC (3.8-10.6) k/uL Neutrophils # (1.3-7.7) k/uL Lymphocytes # (1.0-4.8) k/uL ABG pH (7.35-7.45) ABG pO2 (83-108) mmHg ABG HCO3 (21-25) mmol/L ABG Total CO2 (19-24) mmol/L Sodium (137-145) mmol/L Carbon Dioxide (22-30) mmol/L BUN (9-20) mg/dL Glucose (74-99) mg/dL POC Glucose (mg/dL) 148 H 135 H 157 H (75-99) mg/dL Calcium (8.4-10.2) mg/dL Magnesium (1.6-2.3) mg/dL Total Protein (6.3-8.2) g/dL Albumin (3.5-5.0) g/dL 10/15/19 10/15/19 10/15/19 Range/Units 15:01 15:36 16:02 WBC (3.8-10.6) k/uL Neutrophils # (1.3-7.7) k/uL Lymphocytes # (1.0-4.8) k/uL ABG pH (7.35-7.45) ABG pO2 (83-108) mmHg ABG HCO3 (21-25) mmol/L ABG Total CO2 (19-24) mmol/L Sodium (137-145) mmol/L Carbon Dioxide (22-30) mmol/L BUN (9-20) mg/dL Glucose (74-99) mg/dL POC Glucose (mg/dL) 167 H 174 H 173 H (75-99) mg/dL Calcium (8.4-10.2) mg/dL Magnesium (1.6-2.3) mg/dL Total Protein (6.3-8.2) g/dL Albumin (3.5-5.0) g/dL 10/15/19 10/15/19 Range/Units 16:51 18:06 WBC (3.8-10.6) k/uL Neutrophils # (1.3-7.7) k/uL Lymphocytes # (1.0-4.8) k/uL ABG pH (7.35-7.45) ABG pO2 (83-108) mmHg ABG HCO3 (21-25) mmol/L ABG Total CO2 (19-24) mmol/L Sodium (137-145) mmol/L Carbon Dioxide (22-30) mmol/L BUN (9-20) mg/dL Glucose (74-99) mg/dL POC Glucose (mg/dL) 186 H 132 H (75-99) mg/dL Calcium (8.4-10.2) mg/dL Magnesium (1.6-2.3) mg/dL Total Protein (6.3-8.2) g/dL Albumin (3.5-5.0) g/dL Microbiology - Last 24 Hours (Table) 10/13/19 14:15 Gram Stain - Final Bronchoalviolar Lavage - Right Bronchial Washings Culture - Final Palak albicans Assessment and Plan Assessment: Acute on chronic respiratory failure A. fib with rapid ventricular response Frequent PVCs with electrolyte imbalance including hypokalemia suspect also magnesium and phosphorus Left upper lobe and right lower lobe pneumonia Acute COPD exacerbation Acute congestive heart failure related to diastolic and systolic heart failure and A. fib Chronic hypotension Generalized weakness Obstructive sleep apnea Hyperthyroidism Plan: Bronchoscopy results and reports reviewed As per wishes of the family we will extubate patient early in the morning and put him on BiPAP continue current plan of care and supportive care Continue IV steroids breathing treatments and broad-spectrum antibiotics Continue diuresis Continue supportive care Prognosis is very guarded Continue to feed tube feed Further recommendations pending plan of care as per clinical response of the patient Time with Patient: Greater than 30
--- NOTE | 2019-10-16 14:16 | P.PN ---
Subjective Progress Note Date: 10/16/19 Principal diagnosis: A. 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 fib Chronic hypotension Generalized weakness Obstructive sleep apnea Hyperthyroidism 10/16/2019, patient seen eval reexamined during the rounds has been successfully extubated, patient remains on BiPAP with the support of 16/10 rate of 12 and 100% oxygen, oxygen saturation is 98%, patient is relatively more responsive open eyes, follows simple commands, currently resting on BiPAP, we'll continue BiPAP well in between use the nasal cannula was started on clear liquid diet as tolerated labs reviewed medications reviewed 10/15/2019, patient seen eval reexamined during the rounds remains intubated on full ventilator support family is present at bedside detailed discussion was present family expressed their wishes not to keep him on respirator and to extubate early in the morning, when setting reviewed, noted patient is in A. fib with rapid ventricular response however rate has improved now, patient remains in IV steroids and antibiotics and bronchodilators along with the amiodarone labs reviewed medications reviewed him a last chest x-ray continued to show bibasilar pneumonia/atelectasis along with small effusion, not much change from baseline x-ray may be slight improvement, culture results and reports are all negative so far, critical care time 35 minutes 10/14/2019, patient seen eval examined during the rounds labs reviewed medicati ons reviewed care plan discussed with the staff at length, patient remains sedated with 50 of propofol, patient is on levo fed to have adequate blood pressure, patient was having frequent PVCs with A. fib with RVR, we will discuss with cardiovascular service about an another infusion of IV amiodarone, in the meantime we'll check labs including mag and phosphorus, currently patient is on assist control with a rate of 16 breathing about 28 tidal volume of 455 of PEEP and 50% oxygen, but patient was low has been repleted, magnesium and phosphorous levels are pending, cultures from respiratory secretions reviewed so far has been negative, patient is tolerating tube feed well urine output is adequate 10/13/2019, patient seen eval examined during the rounds labs reviewed medications reviewed radiographic studies reviewed as well patient is intubated due to ongoing hypoxia respiratory distress and being tired out, his chest x-ray continued to show a diffuse interstitial lung marking bilaterally postintubation chest x-ray showed stable ET tube and NG tube, patient has been is on assist control rate of 16 tidal volume of 450 with PEEP of 500% oxygen arterial blood gases pending I have a detailed discussion with the family including 2 daughters plan is to proceed with bronchoscopy for pulmonary toilet and sampling of lower airway, patient remain on the bronchodilator along with amiodarone and anticoagulation with Eliquis, patient remains on broad-spectrum antibiotics along with IV steroids rate is still not very well controlled 100-120 atrial fibrillation with RVR, respiratory secretions are stable, white cell count is decreased to 14,700, labs reviewed the renal function continued to improve, patient is having adequate output will plan to start patient on tube feed continue current medication and follow up on bronchoscopy results culture 10/11/2019, patient seen eval examined during the rounds labs reviewed medications reviewed shortness of breath cough congestion is slightly better now, patient underwent a midline placement shortness of breath still there but severity has improved patient is back on amiodarone, continue steroids continue anticoagulation follow clinical course closely blood pressure remains on the low side 10/10/2019, patient seen eval examined during the rounds patient has been using CPAP machine now, cough congestion shortness breath is improved, his chest x-ray from today showing improvement in infiltrate on the left side some infiltrate on right base has been noted, patient has been getting bronchodilators as well as steroids and broad-spectrum antibiotics, now afebrile heart rate is improved now blood pressure is still marginal, on 5 L oxygen saturation is 90-92% 10/09/2019, patient seen eval examined during the rounds labs reviewed medications reviewed care plan discussed with the patient, shortness of breath is improved A. 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, patient has been struggling with low blood pressures generalized weakness he was discharged from the hospital and earlier September but never really recovered in the last few days has been having low blood pressure was in fact seen in the office due to low blood pressure advised to adjust the medicine, patient developed progressive increased shortness of breath 1 day before in addition is spiked a fever up to 101 blood pressure drop down to 90s, his chest x-ray is showing infiltrate in the left upper lobe and right lower lobe, patient has been started on broad-spectrum antibiotics his been admitted into the hospital with Cardizem drip and his heart rate improved from 170-110-120 he is on supplemental oxygen, he denies any chills, denies any hemoptysis, denies any bowel or bladder related problem, but does complain of severe generalized weakness and tiredness intermittent cough Objective - Vital Signs Vital signs: Vital Signs Temp 98.5 F 10/16/19 12:00 Pulse 122 H 10/16/19 14:00 Resp 27 H 10/16/19 14:00 BP 94/67 10/16/19 14:00 Pulse Ox 98 10/16/19 14:00 Intake & Output 10/15/19 10/16/19 10/16/19 18:59 06:59 18:59 Intake Total 1321.118 976.710 765.477 Output Total 1190 540 300 Balance 131.118 436.710 465.477 Weight 89.6 kg 89.4 kg Intake: IV 340 260 415 0.9 NS 240 260 140 Piperacillin-Tazobactam 3 100 75 .375 gm In Sodium Chloride 0.9% 100 ml @ 25 mls/hr IVPB Q8H [facility] Rx#: [id number] Potassium Chloride 10 meq 200 In Water For Injection 1 100ml.bag @ 100 mls/hr IVPB Q1H [facility] Rx#: [id number] Intake, IV Titration 343.118 340.710 148.477 Amount Insulin Regular 100 unit 62.048 26.664 31.428 In Sodium Chloride 0.9% 100 ml @ Per Protocol IV .Q0M [facility] Rx#:[id number] Norepinephrine 4 mg In 150.414 91.294 98.990 Sodium Chloride 0.9% 250 ml @ 0.05 MCG/KG/MIN 16. 535 mls/hr IV .[id number] [facility] Rx#:[id number] Piperacillin-Tazobactam 3 100 .375 gm In Sodium Chloride 0.9% 100 ml @ 25 mls/hr IVPB Q8H [facility] Rx#: [id number] Propofol 1,000 mg In 130.656 122.752 18.059 Empty Bag 1 bag @ Titrate IV .Q0M [facility] Rx#: [id number] Tube Feeding 308 286 22 Other 330 90 180 Output: Urine 1190 540 300 Other: Voiding Method Indwelling Catheter Indwelling Catheter Indwelling Catheter - Exam - Constitutional General appearance: Between extubated on BiPAP currently HEENT Eyes: anicteric sclerae, EOMI, PERRLA ENT: normal oropharynx Ears: bilateral: normal - Neck Neck: lymphadenopathy Carotids: bilateral: upstroke normal Thyroid: bilateral: normal size - Respiratory Respiratory: bilateral: diminished, wheezing (Fine bilateral), prolonged expiration, negative: dullness, rales, rhonchi - Cardiovascular Rhythm: irregularly irregular Heart sounds: normal: S1, S2 - Gastrointestinal General gastrointestinal: decreased bowel sounds, soft - Neurologic Neurologic: Arousable follow simple commands - Labs CBC & Chem 7: 10/16/19 04:50 10/16/19 10:26 Labs: Abnormal Lab Results - Last 24 Hours (Table) 10/15/19 10/15/19 10/15/19 Range/Units 15:01 15:36 16:02 WBC (3.8-10.6) k/uL Neutrophils # (1.3-7.7) k/uL Lymphocytes # (1.0-4.8) k/uL ABG pH (7.35-7.45) ABG pO2 (83-108) mmHg ABG HCO3 (21-25) mmol/L ABG Total CO2 (19-24) mmol/L ABG O2 Saturation (94-97) % Potassium (3.5-5.1) mmol/L Carbon Dioxide (22-30) mmol/L BUN (9-20) mg/dL Glucose (74-99) mg/dL POC Glucose (mg/dL) 167 H 174 H 173 H (75-99) mg/dL Calcium (8.4-10.2) mg/dL Total Protein (6.3-8.2) g/dL Albumin (3.5-5.0) g/dL 10/15/19 10/15/19 10/15/19 Range/Units 16:51 18:06 19:01 WBC (3.8-10.6) k/uL Neutrophils # (1.3-7.7) k/uL Lymphocytes # (1.0-4.8) k/uL ABG pH (7.35-7.45) ABG pO2 (83-108) mmHg ABG HCO3 (21-25) mmol/L ABG Total CO2 (19-24) mmol/L ABG O2 Saturation (94-97) % Potassium (3.5-5.1) mmol/L Carbon Dioxide (22-30) mmol/L BUN (9-20) mg/dL Glucose (74-99) mg/dL POC Glucose (mg/dL) 186 H 132 H 120 H (75-99) mg/dL Calcium (8.4-10.2) mg/dL Total Protein (6.3-8.2) g/dL Albumin (3.5-5.0) g/dL 10/15/19 10/15/19 10/15/19 Range/Units 19:44 20:52 21:52 WBC (3.8-10.6) k/uL Neutrophils # (1.3-7.7) k/uL Lymphocytes # (1.0-4.8) k/uL ABG pH (7.35-7.45) ABG pO2 (83-108) mmHg ABG HCO3 (21-25) mmol/L ABG Total CO2 (19-24) mmol/L ABG O2 Saturation (94-97) % Potassium (3.5-5.1) mmol/L Carbon Dioxide (22-30) mmol/L BUN (9-20) mg/dL Glucose (74-99) mg/dL POC Glucose (mg/dL) 186 H 180 H 179 H (75-99) mg/dL Calcium (8.4-10.2) mg/dL Total Protein (6.3-8.2) g/dL Albumin (3.5-5.0) g/dL 10/15/19 10/16/19 10/16/19 Range/Units 22:55 00:11 01:05 WBC (3.8-10.6) k/uL Neutrophils # (1.3-7.7) k/uL Lymphocytes # (1.0-4.8) k/uL ABG pH (7.35-7.45) ABG pO2 (83-108) mmHg ABG HCO3 (21-25) mmol/L ABG Total CO2 (19-24) mmol/L ABG O2 Saturation (94-97) % Potassium (3.5-5.1) mmol/L Carbon Dioxide (22-30) mmol/L BUN (9-20) mg/dL Glucose (74-99) mg/dL POC Glucose (mg/dL) 145 H 115 H 149 H (75-99) mg/dL Calcium (8.4-10.2) mg/dL Total Protein (6.3-8.2) g/dL Albumin (3.5-5.0) g/dL 10/16/19 10/16/19 10/16/19 Range/Units 02:05 03:04 04:08 WBC (3.8-10.6) k/uL Neutrophils # (1.3-7.7) k/uL Lymphocytes # (1.0-4.8) k/uL ABG pH (7.35-7.45) ABG pO2 (83-108) mmHg ABG HCO3 (21-25) mmol/L ABG Total CO2 (19-24) mmol/L ABG O2 Saturation (94-97) % Potassium (3.5-5.1) mmol/L Carbon Dioxide (22-30) mmol/L BUN (9-20) mg/dL Glucose (74-99) mg/dL POC Glucose (mg/dL) 161 H 164 H 170 H (75-99) mg/dL Calcium (8.4-10.2) mg/dL Total Protein (6.3-8.2) g/dL Albumin (3.5-5.0) g/dL 10/16/19 10/16/19 10/16/19 Range/Units 04:50 04:50 05:01 WBC 18.9 H (3.8-10.6) k/uL Neutrophils # 17.5 H (1.3-7.7) k/uL Lymphocytes # 0.7 L (1.0-4.8) k/uL ABG pH (7.35-7.45) ABG pO2 (83-108) mmHg ABG HCO3 (21-25) mmol/L ABG Total CO2 (19-24) mmol/L ABG O2 Saturation (94-97) % Potassium 3.3 L (3.5-5.1) mmol/L Carbon Dioxide 33 H (22-30) mmol/L BUN 34 H (9-20) mg/dL Glucose 164 H (74-99) mg/dL POC Glucose (mg/dL) 164 H (75-99) mg/dL Calcium 7.9 L (8.4-10.2) mg/dL Total Protein 5.0 L (6.3-8.2) g/dL Albumin 2.4 L (3.5-5.0) g/dL 10/16/19 10/16/19 10/16/19 Range/Units 05:22 06:12 06:48 WBC (3.8-10.6) k/uL Neutrophils # (1.3-7.7) k/uL Lymphocytes # (1.0-4.8) k/uL ABG pH 7.55 H (7.35-7.45) ABG pO2 53 L* (83-108) mmHg ABG HCO3 38 H (21-25) mmol/L ABG Total CO2 39 H (19-24) mmol/L ABG O2 Saturation 90.8 L (94-97) % Potassium (3.5-5.1) mmol/L Carbon Dioxide (22-30) mmol/L BUN (9-20) mg/dL Glucose (74-99) mg/dL POC Glucose (mg/dL) 143 H 137 H (75-99) mg/dL Calcium (8.4-10.2) mg/dL Total Protein (6.3-8.2) g/dL Albumin (3.5-5.0) g/dL 10/16/19 10/16/19 10/16/19 Range/Units 08:14 09:10 10:10 WBC (3.8-10.6) k/uL Neutrophils # (1.3-7.7) k/uL Lymphocytes # (1.0-4.8) k/uL ABG pH (7.35-7.45) ABG pO2 (83-108) mmHg ABG HCO3 (21-25) mmol/L ABG Total CO2 (19-24) mmol/L ABG O2 Saturation (94-97) % Potassium (3.5-5.1) mmol/L Carbon Dioxide (22-30) mmol/L BUN (9-20) mg/dL Glucose (74-99) mg/dL POC Glucose (mg/dL) 155 H 163 H 177 H (75-99) mg/dL Calcium (8.4-10.2) mg/dL Total Protein (6.3-8.2) g/dL Albumin (3.5-5.0) g/dL 10/16/19 10/16/19 10/16/19 Range/Units 10:55 12:09 13:07 WBC (3.8-10.6) k/uL Neutrophils # (1.3-7.7) k/uL Lymphocytes # (1.0-4.8) k/uL ABG pH (7.35-7.45) ABG pO2 (83-108) mmHg ABG HCO3 (21-25) mmol/L ABG Total CO2 (19-24) mmol/L ABG O2 Saturation (94-97) % Potassium (3.5-5.1) mmol/L Carbon Dioxide (22-30) mmol/L BUN (9-20) mg/dL Glucose (74-99) mg/dL POC Glucose (mg/dL) 156 H 137 H 143 H (75-99) mg/dL Calcium (8.4-10.2) mg/dL Total Protein (6.3-8.2) g/dL Albumin (3.5-5.0) g/dL 10/16/19 Range/Units 14:04 WBC (3.8-10.6) k/uL Neutrophils # (1.3-7.7) k/uL Lymphocytes # (1.0-4.8) k/uL ABG pH (7.35-7.45) ABG pO2 (83-108) mmHg ABG HCO3 (21-25) mmol/L ABG Total CO2 (19-24) mmol/L ABG O2 Saturation (94-97) % Potassium (3.5-5.1) mmol/L Carbon Dioxide (22-30) mmol/L BUN (9-20) mg/dL Glucose (74-99) mg/dL POC Glucose (mg/dL) 144 H (75-99) mg/dL Calcium (8.4-10.2) mg/dL Total Protein (6.3-8.2) g/dL Albumin (3.5-5.0) g/dL Assessment and Plan Assessment: Acute on chronic respiratory failure A. fib with rapid ventricular response Frequent PVCs with electrolyte imbalance including hypokalemia suspect also magnesium and phosphorus Left upper lobe and right lower lobe pneumonia Acute COPD exacerbation Acute congestive heart failure related to diastolic and systolic heart failure and A. fib Chronic hypotension Generalized weakness Obstructive sleep apnea Hyperthyroidism Plan: Continue BiPAP Use nasal cannula in between Bedside swallow Clear liquid diet as tolerated Monitor aspiration precautions is no code not to be reintubated Continue IV steroids breathing treatments and broad-spectrum antibiotics Continue diuresis Continue supportive care Prognosis is very guarded Continue to feed tube feed Further recommendations pending plan of care as per clinical response of the patient Time with Patient: Greater than 30
--- NOTE | 2019-10-16 15:27 | P.PN ---
Subjective Progress Note Date: 10/16/19 This is a 79-year-old male with a known history of atrial fibrillation anticoagulated with Eliquis, COPD, myocardial infarction, coronary artery disease with cardiac stent, seizure disorder and hyperthyroidism in which she was just started on Tapazole during his last hospitalization. Patient was just recently discharged earlier in September from the hospital after being treated for COPD exacerbation and bronchitis. He also at that time had A. fib with RVR and had an increase in his Lopressor and he was started on oral Cardizem. Patient reports taking all of his medications. Patient reports never fully recovering after his hospitalization. He reports having a shortness of breath and left-sided chest pain that started to worsen throughout the night. He has a productive cough at times. Chest x-ray showing left upper lobe and possible mild right lower lobe infiltrates. Temp of 100.2 BP 91/64. Lactic was normal at 1.9. Influenza screening was negative. Patient was given Rocephin Zosyn and Levaquin in the ER for his pneumonia. There is also concerns for sepsis. He and his been given IV fluids. EKG had shown atrial fibrillation with rapid ventricular response heart rate was 175. In the ER patient was started on Cardizem drip. Troponin is elevated at 0.216. Cardiology and pulmonary services are on consult. Patient denies any nausea or vomiting bowel movement changes or urinary symptoms. On 10/08/2019 patient was seen and examined on the medical floor he is alert and oriented 3 in no apparent distress he is still complaining of shortness of breath cough and wheezing otherwise he denies any complaints there is no fever or chills no headache or dizziness no chest pain no nausea or vomiting no abdominal pain no diarrhea and no urinary symptoms. On 10/09/2019 patient is alert and oriented 3 in no distress, he is still complaining of cough, wheezing, and shortness of breath with any activity otherwise he denies any complaints there is no fever or chills no headache or dizziness no chest pain no nausea or vomiting no abdominal pain no diarrhea no burning with urination no frequency or urgency and no hematuria. On 10/10/2019 patient is alert and oriented 3. Patient is still having some significant wheezing and shortness of breath. Pulmonary services are following. currently maintained on Levaquin, Zosyn and Solu-Medrol. Cardiac meds also adjusted per cardiology patient having low blood pressure. Medications to be adjusted per cardiology. At this time patient denies chest pain. Patient denies nausea vomiting or diarrhea. Patient denies any urinary burning or frequency. On 10/11/2019 patient is alert and oriented 3. Patient remains short of breath. Heart rate remains elevated cardiology and pulmonary services are following. Patient has been started on amiodarone. Patient remains on Solu- Medrol, Levaquin and Zosyn. Pulmonary services are following. Patient remains on eliquis for anticoagulation. At this time patient denies chest pain. Patient denies nausea vomiting or diarrhea. Patient denies any urinary burning or frequency On 10/12/2019 patient has elected 903. Patient's daughter is at bedside. Patient showing minimal improvement. Due to patient's minimal improvement and continued decline in respiratory status remaining transfer to tertiary facility. Transfer to [facility] in progress family in agreement. Patient remains on IV Solu-Medrol Levaquin and Zosyn. Patient was started on amiodarone Per cardiology due to A. fib RVR. At this time patient denies any nausea vomiting or diarrhea. Patient denies any urinary burning or frequency On 10/13/2019 patient was moved to the intensive care unit due to declining respiratory status. Patient has been accepted at [facility] but there are currently no beds available. Pulmonary team Dr. Stanley did discuss with family this a.m. about possibility of intubation to perform bronchoscopy. Long discussion held with family at bedside this a.m. and questions were answered. At this time family and patient are leaning towards intubation with bronchoscopy. Family and patient are aware that patient's outcome might not change with intubation and bronchoscopy. Family and patient verbalized understanding and plan to move forward with bronchoscopy and intubation. Patient remains on high flow nasal cannula. Blood pressure remains marginal. Patient has been transitioned to by mouth amiodarone. Cardiology pulmonary and infectious disease following On 10/14/2019 patient underwent planned intubation with bronchoscopy per Dr. Stanley. Patient is currently sedated on mechanical ventilation resting comfortably in the ICU. Patient is on small dose of pressure support medication Levophed likely secondary to sedation. Heart rate has improved. Urine output adequate. Bronchial washings sent for cytology. On 10/15/2019 patient was seen and examined in the ICU currently he is intubated sedated maintained on mechanical ventilation, pulmonary Dr. Stanley is following he underwent bronchoscopy yesterday cultures are so far positive for yeast otherwise no significant findings on bronchoalveolar level as culture. On 10/16/2019, patient was seen and examined in the ICU, patient is feeling better, he is still complaining of occasional cough and complaining of severe shortness of breath with any activity, he is extubated and maintained on BiPAP at this time, he is complaining of generalized weakness otherwise she denies any complaints, there is no fever or chills no headache or dizziness no chest pain no nausea or vomiting no abdominal pain no diarrhea no burning with urination no frequency or urgency and no hematuria. Objective - Vital Signs Vital signs: Vital Signs Temp 98.5 F 10/16/19 12:00 Pulse 125 H 10/16/19 13:00 Resp 25 H 10/16/19 13:00 BP 92/73 10/16/19 13:00 Pulse Ox 99 10/16/19 13:00 Intake & Output 10/15/19 10/16/19 10/16/19 18:59 06:59 18:59 Intake Total 1321.118 976.710 608.792 Output Total 1190 540 240 Balance 131.118 436.710 368.792 Weight 89.6 kg 89.4 kg Intake: IV 340 260 270 0.9 NS 240 260 120 Piperacillin-Tazobactam 3 100 50 .375 gm In Sodium Chloride 0.9% 100 ml @ 25 mls/hr IVPB Q8H [facility] Rx#: [id number] Potassium Chloride 10 meq 100 In Water For Injection 1 100ml.bag @ 100 mls/hr IVPB Q1H [facility] Rx#: [id number] Intake, IV Titration 343.118 340.710 136.792 Amount Insulin Regular 100 unit 62.048 26.664 31.428 In Sodium Chloride 0.9% 100 ml @ Per Protocol IV .Q0M [facility] Rx#:[id number] Norepinephrine 4 mg In 150.414 91.294 87.305 Sodium Chloride 0.9% 250 ml @ 0.05 MCG/KG/MIN 16. 535 mls/hr IV .[id number] [facility] Rx#:[id number] Piperacillin-Tazobactam 3 100 .375 gm In Sodium Chloride 0.9% 100 ml @ 25 mls/hr IVPB Q8H [facility] Rx#: [id number] Propofol 1,000 mg In 130.656 122.752 18.059 Empty Bag 1 bag @ Titrate IV .Q0M [facility] Rx#: [id number] Tube Feeding 308 286 22 Other 330 90 180 Output: Urine 1190 540 240 Other: Voiding Method Indwelling Catheter Indwelling Catheter Indwelling Catheter - Exam In general patient is maintained on BiPAP he is alert and following commands HEENT head normocephalic and atraumatic Neck is supple no JVD no goiter no lymphadenopathy Chest exam reveals diffuse crackles in both lung villarreal with wheezing Cardiac exam reveals regular heart sounds S1 and S2 no gallops no murmurs Abdomen is soft nontender no organomegaly with normal bowel sounds Extremity exam reveals no edema no cyanosis or clubbing - Labs CBC & Chem 7: 10/16/19 04:50 10/16/19 10:26 Labs: Abnormal Lab Results - Last 24 Hours (Table) 10/15/19 10/15/19 10/15/19 Range/Units 13:56 15:01 15:36 WBC (3.8-10.6) k/uL Neutrophils # (1.3-7.7) k/uL Lymphocytes # (1.0-4.8) k/uL ABG pH (7.35-7.45) ABG pO2 (83-108) mmHg ABG HCO3 (21-25) mmol/L ABG Total CO2 (19-24) mmol/L ABG O2 Saturation (94-97) % Potassium (3.5-5.1) mmol/L Carbon Dioxide (22-30) mmol/L BUN (9-20) mg/dL Glucose (74-99) mg/dL POC Glucose (mg/dL) 157 H 167 H 174 H (75-99) mg/dL Calcium (8.4-10.2) mg/dL Total Protein (6.3-8.2) g/dL Albumin (3.5-5.0) g/dL 10/15/19 10/15/19 10/15/19 Range/Units 16:02 16:51 18:06 WBC (3.8-10.6) k/uL Neutrophils # (1.3-7.7) k/uL Lymphocytes # (1.0-4.8) k/uL ABG pH (7.35-7.45) ABG pO2 (83-108) mmHg ABG HCO3 (21-25) mmol/L ABG Total CO2 (19-24) mmol/L ABG O2 Saturation (94-97) % Potassium (3.5-5.1) mmol/L Carbon Dioxide (22-30) mmol/L BUN (9-20) mg/dL Glucose (74-99) mg/dL POC Glucose (mg/dL) 173 H 186 H 132 H (75-99) mg/dL Calcium (8.4-10.2) mg/dL Total Protein (6.3-8.2) g/dL Albumin (3.5-5.0) g/dL 10/15/19 10/15/19 10/15/19 Range/Units 19:01 19:44 20:52 WBC (3.8-10.6) k/uL Neutrophils # (1.3-7.7) k/uL Lymphocytes # (1.0-4.8) k/uL ABG pH (7.35-7.45) ABG pO2 (83-108) mmHg ABG HCO3 (21-25) mmol/L ABG Total CO2 (19-24) mmol/L ABG O2 Saturation (94-97) % Potassium (3.5-5.1) mmol/L Carbon Dioxide (22-30) mmol/L BUN (9-20) mg/dL Glucose (74-99) mg/dL POC Glucose (mg/dL) 120 H 186 H 180 H (75-99) mg/dL Calcium (8.4-10.2) mg/dL Total Protein (6.3-8.2) g/dL Albumin (3.5-5.0) g/dL 10/15/19 10/15/19 10/16/19 Range/Units 21:52 22:55 00:11 WBC (3.8-10.6) k/uL Neutrophils # (1.3-7.7) k/uL Lymphocytes # (1.0-4.8) k/uL ABG pH (7.35-7.45) ABG pO2 (83-108) mmHg ABG HCO3 (21-25) mmol/L ABG Total CO2 (19-24) mmol/L ABG O2 Saturation (94-97) % Potassium (3.5-5.1) mmol/L Carbon Dioxide (22-30) mmol/L BUN (9-20) mg/dL Glucose (74-99) mg/dL POC Glucose (mg/dL) 179 H 145 H 115 H (75-99) mg/dL Calcium (8.4-10.2) mg/dL Total Protein (6.3-8.2) g/dL Albumin (3.5-5.0) g/dL 10/16/19 10/16/19 10/16/19 Range/Units 01:05 02:05 03:04 WBC (3.8-10.6) k/uL Neutrophils # (1.3-7.7) k/uL Lymphocytes # (1.0-4.8) k/uL ABG pH (7.35-7.45) ABG pO2 (83-108) mmHg ABG HCO3 (21-25) mmol/L ABG Total CO2 (19-24) mmol/L ABG O2 Saturation (94-97) % Potassium (3.5-5.1) mmol/L Carbon Dioxide (22-30) mmol/L BUN (9-20) mg/dL Glucose (74-99) mg/dL POC Glucose (mg/dL) 149 H 161 H 164 H (75-99) mg/dL Calcium (8.4-10.2) mg/dL Total Protein (6.3-8.2) g/dL Albumin (3.5-5.0) g/dL 10/16/19 10/16/19 10/16/19 Range/Units 04:08 04:50 04:50 WBC 18.9 H (3.8-10.6) k/uL Neutrophils # 17.5 H (1.3-7.7) k/uL Lymphocytes # 0.7 L (1.0-4.8) k/uL ABG pH (7.35-7.45) ABG pO2 (83-108) mmHg ABG HCO3 (21-25) mmol/L ABG Total CO2 (19-24) mmol/L ABG O2 Saturation (94-97) % Potassium 3.3 L (3.5-5.1) mmol/L Carbon Dioxide 33 H (22-30) mmol/L BUN 34 H (9-20) mg/dL Glucose 164 H (74-99) mg/dL POC Glucose (mg/dL) 170 H (75-99) mg/dL Calcium 7.9 L (8.4-10.2) mg/dL Total Protein 5.0 L (6.3-8.2) g/dL Albumin 2.4 L (3.5-5.0) g/dL 10/16/19 10/16/19 10/16/19 Range/Units 05:01 05:22 06:12 WBC (3.8-10.6) k/uL Neutrophils # (1.3-7.7) k/uL Lymphocytes # (1.0-4.8) k/uL ABG pH 7.55 H (7.35-7.45) ABG pO2 53 L* (83-108) mmHg ABG HCO3 38 H (21-25) mmol/L ABG Total CO2 39 H (19-24) mmol/L ABG O2 Saturation 90.8 L (94-97) % Potassium (3.5-5.1) mmol/L Carbon Dioxide (22-30) mmol/L BUN (9-20) mg/dL Glucose (74-99) mg/dL POC Glucose (mg/dL) 164 H 143 H (75-99) mg/dL Calcium (8.4-10.2) mg/dL Total Protein (6.3-8.2) g/dL Albumin (3.5-5.0) g/dL 10/16/19 10/16/19 10/16/19 Range/Units 06:48 08:14 09:10 WBC (3.8-10.6) k/uL Neutrophils # (1.3-7.7) k/uL Lymphocytes # (1.0-4.8) k/uL ABG pH (7.35-7.45) ABG pO2 (83-108) mmHg ABG HCO3 (21-25) mmol/L ABG Total CO2 (19-24) mmol/L ABG O2 Saturation (94-97) % Potassium (3.5-5.1) mmol/L Carbon Dioxide (22-30) mmol/L BUN (9-20) mg/dL Glucose (74-99) mg/dL POC Glucose (mg/dL) 137 H 155 H 163 H (75-99) mg/dL Calcium (8.4-10.2) mg/dL Total Protein (6.3-8.2) g/dL Albumin (3.5-5.0) g/dL 10/16/19 10/16/19 10/16/19 Range/Units 10:10 10:55 12:09 WBC (3.8-10.6) k/uL Neutrophils # (1.3-7.7) k/uL Lymphocytes # (1.0-4.8) k/uL ABG pH (7.35-7.45) ABG pO2 (83-108) mmHg ABG HCO3 (21-25) mmol/L ABG Total CO2 (19-24) mmol/L ABG O2 Saturation (94-97) % Potassium (3.5-5.1) mmol/L Carbon Dioxide (22-30) mmol/L BUN (9-20) mg/dL Glucose (74-99) mg/dL POC Glucose (mg/dL) 177 H 156 H 137 H (75-99) mg/dL Calcium (8.4-10.2) mg/dL Total Protein (6.3-8.2) g/dL Albumin (3.5-5.0) g/dL 10/16/19 Range/Units 13:07 WBC (3.8-10.6) k/uL Neutrophils # (1.3-7.7) k/uL Lymphocytes # (1.0-4.8) k/uL ABG pH (7.35-7.45) ABG pO2 (83-108) mmHg ABG HCO3 (21-25) mmol/L ABG Total CO2 (19-24) mmol/L ABG O2 Saturation (94-97) % Potassium (3.5-5.1) mmol/L Carbon Dioxide (22-30) mmol/L BUN (9-20) mg/dL Glucose (74-99) mg/dL POC Glucose (mg/dL) 143 H (75-99) mg/dL Calcium (8.4-10.2) mg/dL Total Protein (6.3-8.2) g/dL Albumin (3.5-5.0) g/dL Microbiology - Last 24 Hours (Table) 10/13/19 14:15 Gram Stain - Final Bronchoalviolar Lavage - Right Bronchial Washings Culture - Final [place] albicans Assessment and Plan Plan: 1. Shortness of breath multifactorial likely related to pneumonia, COPD exacerbation, fluid overload and atrial fibrillation with rapid ventricular response. Pulmonary service and cardiology on consult 2. Acute on chronic respiratory failure requiring mechanical intubation. Patient underwent planned bronchoscopy with intubation on 10/13/2019 bronchial washings sent for cytology. Dr. Lizeth kuo for critical care and pulmonary services 3. Pneumonia with sepsis present on admission. Chest x-ray showing a left upper lobe and possible mild right lower lobe infiltrates. Patient given 1 dose of Rocephin in the ER and started on Zosyn and Levaquin in the ER. Patient did have a temp of 100.2 and blood pressure of 91/64. Influenza screen negative. Pulmonary services are following. Patient remains on Solu-Medrol, Zosyn and Levaquin. Sputum cultures currently showing no growth. Infectious disease f ollowing. Patient currently maintained on Zosyn and Levaquin 4. Hypotension likely secondary to sedation and atrial fibrillation. Patient currently on a small dose of Levophed for pressure support 5. Atrial fibrillation with rapid ventricular response. Currently on a Cardizem drip. Cardiology on consult. Cardizem drip has been DC'd. Patient started on verapamil. Verapamil DC'd due to hypotension. Patient has been transitioned to by mouth amiodarone 6. Patient has a known history of chronic atrial fibrillation anticoagulated with Eliquis. 7. Chest pain with Elevated troponin: Continue monitor cardiac enzymes. Cardiology on consult 8. Acute COPD exacerbation: Start IV Solu-Medrol 60 mg IV every 6 hours. Continue DuoNeb updraft treatments. Pulmonary services consulted 9. Hyperthyroidism: Resume patient's Tapazole. TSH level 2.430 10. Acute on Chronic diastolic CHF exacerbation. Echo from August shows an EF of 55-60%. Patient did receive 1 dose of IV Lasix in the ER. BNP 1470. By mouth Lasix has been ordered per cardiology 11. Hyponatremia: Sodium is 130 on admission. We'll monitor. Sodium improving to 134 12. History of myocardial infarction with coronary artery disease and stent 13. History of seizure disorder on Keppra 14. Acute on chronic diastolic heart failure. Patient was given 1 dose of IV Lasix per cardiology. Maintained on oral Lasix 20 mg twice a day GI prophylaxis Protonix and DVT prophylaxis Eliquis Family has decided to cancel transfer to [facility] Patient is extubated and currently is maintained on BiPAP Pulmonary services, cardiology and infectious disease following Prognosis is guarded
[2019-10-16 15:56] LABS: Glucose,Whole Blood 142 mg/dL (75-99)
[2019-10-16 18:00] LABS: Glucose,Whole Blood 131 mg/dL (75-99)
--- NOTE | 2019-10-16 18:00 | PN ---
PROGRESS NOTE DATE OF SERVICE: 10/16/2019 REASON FOR FOLLOWUP: Pneumonia. INTERVAL HISTORY: The patient is currently afebrile. The patient has been extubated. He is currently on the BiPAP. He remains to be slightly lethargic. Hemodynamics stable. Not any pressor support. No vomiting or any diarrhea has been reported. PHYSICAL EXAMINATION: Blood pressure is 94/67, pulse of 122, temperature 98.5. He is 98% on BiPAP. General description is an elderly male lying in bed in no distress. Respiratory system: Unlabored breathing. Decreased breath sounds at the bases. No wheeze. Heart S1, S2. Regular rate and rhythm. Abdomen soft, no tenderness. LABS: BUN of 34, creatinine 0.69. DIAGNOSTIC IMPRESSION AND PLAN: 1. Patient with acute respiratory failure, likely multifactorial, possible pneumonia. Sputum so far has been negative for any resistant pathogen. Currently covered with Zosyn. 2. Patient with elevated white count, could be more likely related to Solu-Medrol as no worsening of clinical condition that will be monitored closely. 3. Continue supportive care. MMODL / IJN: [id number] /
[2019-10-16] MEDS: DILTIAZEM 125 MG in SODIUM CHLORIDE 0.9% 100 ML IV SCH (18:08)
[2019-10-16 19:03] LABS: Glucose,Whole Blood 154 mg/dL (75-99)
[2019-10-16 19:52] LABS: Glucose,Whole Blood 161 mg/dL (75-99)
[2019-10-16] MEDS: levETIRAcetam IV 500 MG in SODIUM CHLORIDE 0.9% 100 ML IVPB SCH (20:14)
[2019-10-16] MEDS: ENOXAPARIN 80 MG/0.8 ML SYRINGE SQ SCH (20:19)
[2019-10-16] MEDS: MONTELUKAST 10 MG TAB PO SCH (21:49)
[2019-10-16] MEDS: ATORVASTATIN 10 MG TAB PO SCH (21:49)
[2019-10-16 21:58] LABS: Glucose,Whole Blood 193 mg/dL (75-99)
[2019-10-16 23:02] LABS: Glucose,Whole Blood 235 mg/dL (75-99)
[2019-10-16 23:52] LABS: Glucose,Whole Blood 221 mg/dL (75-99)
[2019-10-17] MEDS: METOPROLOL TARTRATE 50 MG TAB PO SCH (00:20)
[2019-10-17] MEDS: methylPREDNISolone SOD SUCCI 125 MG/2 ML VIAL IV SCH ×3 (00:27→15:44)
[2019-10-17 01:05] LABS: Glucose,Whole Blood 231 mg/dL (75-99)
[2019-10-17 02:02] LABS: Glucose,Whole Blood 201 mg/dL (75-99)
[2019-10-17 03:04] LABS: Glucose,Whole Blood 197 mg/dL (75-99)
[2019-10-17] MEDS: PIPERACILLIN-TAZOBACTAM 3.375 GM in SODIUM CHLORIDE 0.9% 100 ML IVPB SCH ×3 (03:14→20:58)
[2019-10-17 04:22] LABS: Glucose,Whole Blood 203 mg/dL (75-99)
[2019-10-17 05:25] LABS: Glucose,Whole Blood 172 mg/dL (75-99)
[2019-10-17 06:15] LABS: ALT 24 U/L (4-49); African American GFR (CKD) >90 (>60 ml/min/1.73 sqM); Albumin 2.7 g/dL (3.5-5.0); Anion Gap 4 mmol/L; Blood Urea Nitrogen 41 mg/dL (9-20); Calcium 8.1 mg/dL (8.4-10.2); Carbon Dioxide 33 mmol/L (22-30); Chloride 104 mmol/L (98-107); Glucose 170 mg/dL (74-99); Non-African American GFR(CKD) >90 (>60 ml/min/1.73 sqM); Phosphorus 3.5 mg/dL (2.5-4.5); Sodium 141 mmol/L (137-145); Total Bilirubin 0.8 mg/dL (0.2-1.3); Total Protein 5.6 g/dL (6.3-8.2)
[2019-10-17 06:19] LABS: Glucose,Whole Blood 143 mg/dL (75-99)
[2019-10-17 06:24] LABS: AST 52 U/L (17-59); Alkaline Phosphatase 69 U/L (38-126); Magnesium 2.5 mg/dL (1.6-2.3); Potassium 4.5 mmol/L (3.5-5.1)
[2019-10-17 06:54] LABS: Glucose,Whole Blood 146 mg/dL (75-99)
[2019-10-17 07:21] LABS: Basophils % (A) 0 %; Eosinophils % (A) 0 %; HCT 44.8 % (39.0-53.0); HGB 14.2 gm/dL (13.0-17.5); Lymphocytes # (A) 0.6 k/uL (1.0-4.8); Lymphocytes % (A) 3 %; MCH 28.7 pg (25.0-35.0); MCHC 31.6 g/dL (31.0-37.0); MCV 90.9 fL (80.0-100.0); Mean Platelet Volume 7.1; Monocytes # (A) 0.4 k/uL (0-1.0); Monocytes % (A) 3 %; Neutrophils # (A) 15.9 k/uL (1.3-7.7); Neutrophils % (A) 93 %; Platelet Count 227 k/uL (150-450); RBC 4.93 m/uL (4.30-5.90); RDW 15.6 % (11.5-15.5)
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
[2019-10-17 07:59] LABS: Glucose,Whole Blood 123 mg/dL (75-99)
[2019-10-17] MEDS: SYMBICORT 160-4.5 MCG INHALER INHALATION SCH ×2 (08:04→19:53)
[2019-10-17] MEDS: IPRATROPIUM-ALBUTEROL 3 ML NEB INHALATION SCH ×4 (08:04→19:53)
--- NOTE | 2019-10-17 08:16 | PN ---
PROGRESS NOTE Mr. Diaz is an 79-year-old male who has a history of paroxysmal atrial fibrillation, who presented with progressive dyspnea and pneumonia, was intubated. He is extubated at this time. He is on BiPAP. He is in atrial fibrillation. His ventricular response is relatively controlled. He is not taking p.o. He is awake, but the BiPAP is on. He has no evidence of ventricular ectopic activity. He remains n.p.o. because he failed swallow evaluation. He is at this time on Lovenox subcutaneous, Solu-Medrol. He is not taking his beta humble or amiodarone at this point yet. PHYSICAL EXAMINATION: Blood pressure in the 100s with the heart rate in the one teens. LUNGS: No wheezes anteriorly. HEART: Irregular, irregular, S1, S2. No S3 with a systolic murmur. ABDOMEN: Soft, nontender. Positive bowel sounds. No organomegaly. EXTREMITIES: No significant edema. LAB DATA: Lab data revealed BUN and creatinine 41 and 0.64, hemoglobin 14.2, white blood cell of 17,000. IMPRESSION: 1. Respiratory failure with pneumonia, extubated. 2. Atrial fibrillation with episode of rapid ventricular response. 3. Preserved ventricular systolic function. 4. Hypertension. 5. Generalized weakness. 6. History of severe chronic obstructive lung disease. RECOMMENDATION: From the cardiac standpoint, will await the further evaluation of his swallowing evaluation to see if we can put him back on his oral medication. Otherwise,will continue supportive care. Will await the decision by the family regarding the plan for further aggressiveness. MMODL / IJN: [id number] /
[2019-10-17] MEDS: FUROSEMIDE 20 MG TAB PO SCH ×2 (08:37→15:39)
[2019-10-17 09:26] LABS: Glucose,Whole Blood 134 mg/dL (75-99)
[2019-10-17] MEDS: DILTIAZEM 125 MG in SODIUM CHLORIDE 0.9% 100 ML IV SCH ×2 (10:06→23:10)
[2019-10-17] MEDS: NOREPINEPHRINE 4 MG in SODIUM CHLORIDE 0.9% 250 ML IV SCH (10:06)
[2019-10-17] MEDS: METOPROLOL TARTRATE 5 MG/5 ML VIAL IVP SCH ×2 (10:07→15:41)
[2019-10-17] MEDS: PANTOPRAZOLE 40 MG TABLET PO SCH (10:07)
[2019-10-17] MEDS: levETIRAcetam IV 500 MG in SODIUM CHLORIDE 0.9% 100 ML IVPB SCH ×2 (10:08→21:02)
[2019-10-17] MEDS: ASCORBIC ACID 500 MG TAB PO SCH (10:15)
[2019-10-17] MEDS: AMIODARONE 200 MG TAB PO SCH ×2 (10:15→20:42)
[2019-10-17] MEDS: POTASSIUM CHLORIDE ER 20 MEQ TAB.ER PO SCH (10:15)
[2019-10-17] MEDS: MULTIVITAMINS, THERA 1 EACH TAB PO SCH (10:15)
[2019-10-17] MEDS: METHIMAZOLE 5 MG TAB PO SCH (10:15)
[2019-10-17] MEDS: CLOPIDOGREL 75 MG TAB PO SCH (10:15)
[2019-10-17 10:24] LABS: Glucose,Whole Blood 190 mg/dL (75-99)
--- NOTE | 2019-10-17 10:25 | P.PN ---
Subjective Progress Note Date: 10/17/19 This is a 79-year-old male with a known history of atrial fibrillation anticoagulated with Eliquis, COPD, myocardial infarction, coronary artery disease with cardiac stent, seizure disorder and hyperthyroidism in which she was just started on Tapazole during his last hospitalization. Patient was just recently discharged earlier in September from the hospital after being treated for COPD exacerbation and bronchitis. He also at that time had A. fib with RVR and had an increase in his Lopressor and he was started on oral Cardizem. Patient reports taking all of his medications. Patient reports never fully recovering after his hospitalization. He reports having a shortness of breath and left-sided chest pain that started to worsen throughout the night. He has a productive cough at times. Chest x-ray showing left upper lobe and possible mild right lower lobe infiltrates. Temp of 100.2 BP 91/64. Lactic was normal at 1.9. Influenza screening was negative. Patient was given Rocephin Zosyn and Levaquin in the ER for his pneumonia. There is also concerns for sepsis. He and his been given IV fluids. EKG had shown atrial fibrillation with rapid ventricular response heart rate was 175. In the ER patient was started on Cardizem drip. Troponin is elevated at 0.216. Cardiology and pulmonary services are on consult. Patient denies any nausea or vomiting bowel movement changes or urinary symptoms. On 10/08/2019 patient was seen and examined on the medical floor he is alert and oriented 3 in no apparent distress he is still complaining of shortness of breath cough and wheezing otherwise he denies any complaints there is no fever or chills no headache or dizziness no chest pain no nausea or vomiting no abdominal pain no diarrhea and no urinary symptoms. On 10/09/2019 patient is alert and oriented 3 in no distress, he is still complaining of cough, wheezing, and shortness of breath with any activity otherwise he denies any complaints there is no fever or chills no headache or dizziness no chest pain no nausea or vomiting no abdominal pain no diarrhea no burning with urination no frequency or urgency and no hematuria On 10/10/2019 patient is alert and oriented 3. Patient is still having some significant wheezing and shortness of breath. Pulmonary services are following. currently maintained on Levaquin, Zosyn and Solu-Medrol. Cardiac meds also adjusted per cardiology patient having low blood pressure. Medications to be adjusted per cardiology. At this time patient denies chest pain. Patient denies nausea vomiting or diarrhea. Patient denies any urinary burning or frequency. On 10/11/2019 patient is alert and oriented 3. Patient remains short of breath. Heart rate remains elevated cardiology and pulmonary services are following. Patient has been started on amiodarone. Patient remains on Solu- Medrol, Levaquin and Zosyn. Pulmonary services are following. Patient remains on eliquis for anticoagulation. At this time patient denies chest pain. Patient denies nausea vomiting or diarrhea. Patient denies any urinary burning or frequency On 10/12/2019 patient has elected 903. Patient's daughter is at bedside. Patient showing minimal improvement. Due to patient's minimal improvement and continued decline in respiratory status remaining transfer to tertiary facility. Transfer to [facility] in progress family in agreement. Patient remains on IV Solu-Medrol Levaquin and Zosyn. Patient was started on amiodarone Per cardiology due to A. fib RVR. At this time patient denies any nausea vomiting or diarrhea. Patient denies any urinary burning or frequency On 10/13/2019 patient was moved to the intensive care unit due to declining respiratory status. Patient has been accepted at [facility] but there are currently no beds available. Pulmonary team Dr. Stanley did discuss with family this a.m. about possibility of intubation to perform bronchoscopy. Long discussion held with family at bedside this a.m. and questions were answered. At this time family and patient are leaning towards intubation with bronchoscopy. Family and patient are aware that patient's outcome might not change with intubation and bronchoscopy. Family and patient verbalized understanding and plan to move forward with bronchoscopy and intubation. Patient remains on high flow nasal cannula. Blood pressure remains marginal. Patient has been transitioned to by mouth amiodarone. Cardiology pulmonary and infectious disease following On 10/14/2019 patient underwent planned intubation with bronchoscopy per Dr. Stanley. Patient is currently sedated on mechanical ventilation resting comfortably in the ICU. Patient is on small dose of pressure support medication Levophed likely secondary to sedation. Heart rate has improved. Urine output adequate. Bronchial washings sent for cytology. On 10/15/2019 patient was seen and examined in the ICU currently he is intubated sedated maintained on mechanical ventilation, pulmonary Dr. Stanley is following he underwent bronchoscopy yesterday cultures are so far positive for yeast otherwise no significant findings on bronchoalveolar level as culture. On 10/16/2019, patient was seen and examined in the ICU, patient is feeling better, he is still complaining of occasional cough and complaining of severe shortness of breath with any activity, he is extubated and maintained on BiPAP at this time, he is complaining of generalized weakness otherwise she denies any complaints, there is no fever or chills no headache or dizziness no chest pain no nausea or vomiting no abdominal pain no diarrhea no burning with urination no frequency or urgency and no hematuria. On 10/17/2019 patient remains in the intensive care unit. Patient was extubated and placed on BiPAP. Per pulmonary will try Airvo. Per family patient requesting to not be reintubated. We'll continue current plan of care. Patient currently tachepenic and tachycardic. Pulmonary and cardiology services are following. Family at bedside QUESTIONS answered Objective - Vital Signs Vital signs: Vital Signs Temp 97.8 F 10/17/19 08:00 Pulse 124 H 10/17/19 08:16 Resp 28 H 10/17/19 08:00 BP 111/88 10/17/19 08:00 Pulse Ox 97 10/17/19 08:00 Intake & Output 10/16/19 10/17/19 10/17/19 18:59 06:59 18:59 Intake Total 895.855 474.172 253.066 Output Total 480 510 90 Balance 415.855 -35.828 163.066 Weight 89.1 kg Intake: IV 520 240 60 0.9 NS 220 240 60 Piperacillin-Tazobactam 3 100 .375 gm In Sodium Chloride 0.9% 100 ml @ 25 mls/hr IVPB Q8H [facility] Rx#: [id number] Potassium Chloride 10 meq 200 In Water For Injection 1 100ml.bag @ 100 mls/hr IVPB Q1H [facility] Rx#: [id number] Intake, IV Titration 173.855 234.172 193.066 Amount Diltiazem 125 mg In 4.333 77.667 Sodium Chloride 0.9% 100 ml @ 10 MG/HR 10 mls/hr IV .[id number] [facility] Rx#: [id number] Insulin Regular 100 unit 41.393 34.172 8.417 In Sodium Chloride 0.9% 100 ml @ Per Protocol IV .Q0M [facility] Rx#:[id number] Norepinephrine 4 mg In 110.070 106.982 Sodium Chloride 0.9% 250 ml @ 0.05 MCG/KG/MIN 16. 535 mls/hr IV .[id number] [facility] Rx#:[id number] Piperacillin-Tazobactam 3 100 .375 gm In Sodium Chloride 0.9% 100 ml @ 25 mls/hr IVPB Q8H [facility] Rx#: [id number] Propofol 1,000 mg In 18.059 Empty Bag 1 bag @ Titrate IV .Q0M [facility] Rx#: [id number] levETIRAcetam IV 500 mg 100 In Sodium Chloride 0.9% 100 ml @ 400 mls/hr IVPB Q12HR [facility] Rx#:[id number] Tube Feeding 22 Other 180 Output: Urine 480 510 90 Other: Voiding Method Indwelling Catheter Indwelling Catheter # Bowel Movements 2 - Exam HEENT head normocephalic and atraumatic Neck is supple no JVD no goiter no lymphadenopathy Chest exam reveals diffuse crackles in both lung villarreal with wheezing Cardiac exam reveals regular heart sounds S1 and S2 no gallops no murmurs Abdomen is soft nontender no organomegaly with normal bowel sounds Extremity exam reveals no edema no cyanosis or clubbing Neurological examination patient is alert and oriented 3 no focal neurological deficit - Labs CBC & Chem 7: 10/17/19 06:25 10/17/19 05:47 Labs: Abnormal Lab Results - Last 24 Hours (Table) 10/16/19 10/16/19 10/16/19 Range/Units 10:55 12:09 13:07 WBC (3.8-10.6) k/uL RDW (11.5-15.5) % Neutrophils # (1.3-7.7) k/uL Lymphocytes # (1.0-4.8) k/uL Carbon Dioxide (22-30) mmol/L BUN (9-20) mg/dL Creatinine (0.66-1.25) mg/dL Glucose (74-99) mg/dL POC Glucose (mg/dL) 156 H 137 H 143 H (75-99) mg/dL Calcium (8.4-10.2) mg/dL Magnesium (1.6-2.3) mg/dL Total Protein (6.3-8.2) g/dL Albumin (3.5-5.0) g/dL 10/16/19 10/16/19 10/16/19 Range/Units 14:04 15:54 17:59 WBC (3.8-10.6) k/uL RDW (11.5-15.5) % Neutrophils # (1.3-7.7) k/uL Lymphocytes # (1.0-4.8) k/uL Carbon Dioxide (22-30) mmol/L BUN (9-20) mg/dL Creatinine (0.66-1.25) mg/dL Glucose (74-99) mg/dL POC Glucose (mg/dL) 144 H 142 H 131 H (75-99) mg/dL Calcium (8.4-10.2) mg/dL Magnesium (1.6-2.3) mg/dL Total Protein (6.3-8.2) g/dL Albumin (3.5-5.0) g/dL 10/16/19 10/16/19 10/16/19 Range/Units 19:00 19:50 21:56 WBC (3.8-10.6) k/uL RDW (11.5-15.5) % Neutrophils # (1.3-7.7) k/uL Lymphocytes # (1.0-4.8) k/uL Carbon Dioxide (22-30) mmol/L BUN (9-20) mg/dL Creatinine (0.66-1.25) mg/dL Glucose (74-99) mg/dL POC Glucose (mg/dL) 154 H 161 H 193 H (75-99) mg/dL Calcium (8.4-10.2) mg/dL Magnesium (1.6-2.3) mg/dL Total Protein (6.3-8.2) g/dL Albumin (3.5-5.0) g/dL 10/16/19 10/16/19 10/17/19 Range/Units 23:00 23:50 01:03 WBC (3.8-10.6) k/uL RDW (11.5-15.5) % Neutrophils # (1.3-7.7) k/uL Lymphocytes # (1.0-4.8) k/uL Carbon Dioxide (22-30) mmol/L BUN (9-20) mg/dL Creatinine (0.66-1.25) mg/dL Glucose (74-99) mg/dL POC Glucose (mg/dL) 235 H 221 H 231 H (75-99) mg/dL Calcium (8.4-10.2) mg/dL Magnesium (1.6-2.3) mg/dL Total Protein (6.3-8.2) g/dL Albumin (3.5-5.0) g/dL 10/17/19 10/17/19 10/17/19 Range/Units 02:00 03:02 04:20 WBC (3.8-10.6) k/uL RDW (11.5-15.5) % Neutrophils # (1.3-7.7) k/uL Lymphocytes # (1.0-4.8) k/uL Carbon Dioxide (22-30) mmol/L BUN (9-20) mg/dL Creatinine (0.66-1.25) mg/dL Glucose (74-99) mg/dL POC Glucose (mg/dL) 201 H 197 H 203 H (75-99) mg/dL Calcium (8.4-10.2) mg/dL Magnesium (1.6-2.3) mg/dL Total Protein (6.3-8.2) g/dL Albumin (3.5-5.0) g/dL 10/17/19 10/17/19 10/17/19 Range/Units 05:22 05:47 06:17 WBC (3.8-10.6) k/uL RDW (11.5-15.5) % Neutrophils # (1.3-7.7) k/uL Lymphocytes # (1.0-4.8) k/uL Carbon Dioxide 33 H (22-30) mmol/L BUN 41 H (9-20) mg/dL Creatinine 0.64 L (0.66-1.25) mg/dL Glucose 170 H (74-99) mg/dL POC Glucose (mg/dL) 172 H 143 H (75-99) mg/dL Calcium 8.1 L (8.4-10.2) mg/dL Magnesium 2.5 H (1.6-2.3) mg/dL Total Protein 5.6 L (6.3-8.2) g/dL Albumin 2.7 L (3.5-5.0) g/dL 10/17/19 10/17/19 10/17/19 Range/Units 06:25 06:52 07:57 WBC 17.0 H (3.8-10.6) k/uL RDW 15.6 H (11.5-15.5) % Neutrophils # 15.9 H (1.3-7.7) k/uL Lymphocytes # 0.6 L (1.0-4.8) k/uL Carbon Dioxide (22-30) mmol/L BUN (9-20) mg/dL Creatinine (0.66-1.25) mg/dL Glucose (74-99) mg/dL POC Glucose (mg/dL) 146 H 123 H (75-99) mg/dL Calcium (8.4-10.2) mg/dL Magnesium (1.6-2.3) mg/dL Total Protein (6.3-8.2) g/dL Albumin (3.5-5.0) g/dL 10/17/19 Range/Units 09:24 WBC (3.8-10.6) k/uL RDW (11.5-15.5) % Neutrophils # (1.3-7.7) k/uL Lymphocytes # (1.0-4.8) k/uL Carbon Dioxide (22-30) mmol/L BUN (9-20) mg/dL Creatinine (0.66-1.25) mg/dL Glucose (74-99) mg/dL POC Glucose (mg/dL) 134 H (75-99) mg/dL Calcium (8.4-10.2) mg/dL Magnesium (1.6-2.3) mg/dL Total Protein (6.3-8.2) g/dL Albumin (3.5-5.0) g/dL Assessment and Plan Assessment: 1. Shortness of breath multifactorial likely related to pneumonia, COPD exacerbation, fluid overload and atrial fibrillation with rapid ventricular response. Pulmonary service and cardiology on consult 2. Acute on chronic respiratory failure requiring mechanical intubation. Kp ha underwent planned bronchoscopy with intubation on 10/13/2019 bronchial washings sent for cytology. Dr. Lizeth kuo for critical care and pulmonary services. Patient currently extubated to BiPAP 3. Pneumonia with sepsis present on admission. Chest x-ray showing a left upper lobe and possible mild right lower lobe infiltrates. Patient given 1 dose of Rocephin in the ER and started on Zosyn and Levaquin in the ER. Patient did have a temp of 100.2 and blood pressure of 91/64. Influenza screen negative. Pulmonary services are following. Patient remains on Solu-Medrol, Zosyn and Le vaquin. Sputum cultures currently showing no growth. Infectious disease following. Patient currently maintained on Zosyn and Levaquin 4. Hypotension likely secondary to sedation and atrial fibrillation. Patient currently on a small dose of Levophed for pressure support 5. Atrial fibrillation with rapid ventricular response. Currently on a Cardizem drip. Cardiology on consult. Cardizem drip has been DC'd. Patient started on verapamil. Verapamil DC'd due to hypotension. Patient has been transitioned to by mouth amiodarone. Cardizem IV has been ordered per cardiology 6. Patient has a known history of chronic atrial fibrillation anticoagulated with Eliquis. 7. Chest pain with Elevated troponin: Continue monitor cardiac enzymes. Cardiology on consult 8. Acute COPD exacerbation: Start IV Solu-Medrol 60 mg IV every 6 hours. Continue DuoNeb updraft treatments. Pulmonary services consulted 9. Hyperthyroidism: Resume patient's Tapazole. TSH level 2.430 10. Acute on Chronic diastolic CHF exacerbation. Echo from August shows an EF of 55-60%. Patient did receive 1 dose of IV Lasix in the ER. BNP 1470. By mouth Lasix has been ordered per cardiology 11. Hyponatremia: Sodium is 130 on admission. We'll monitor. Sodium improving to 134 12. History of myocardial infarction with coronary artery disease and stent 13. History of seizure disorder on Keppra 14. Acute on chronic diastolic heart failure. Patient was given 1 dose of IV Lasix per cardiology. Maintained on oral Lasix 20 mg twice a day 15. Hyperglycemia secondary to steroids. Patient currently maintained on insulin drip GI prophylaxis Protonix and DVT prophylaxis Eliquis Family has decided to cancel transfer to [facility] Patient currently extubated. Patient has been made a DO NOT RESUSCITATE per family and patient decision Pulmonary services, cardiology and infectious disease following I performed an examination of the patient and discussed their management with the Nurse Practitioner. I have reviewed the Nurse Practitioner's notes and agree with the documented findings and plan of care
[2019-10-17] MEDS: ENOXAPARIN 80 MG/0.8 ML SYRINGE SQ SCH ×2 (10:31→21:02)
[2019-10-17 11:09] LABS: Glucose,Whole Blood 185 mg/dL (75-99)
[2019-10-17 11:22] VITALS: BMI 31.6
[2019-10-17 11:47] LABS: Glucose,Whole Blood 197 mg/dL (75-99)
[2019-10-17] MEDS ORDERED: METOPROLOL TARTRATE 5 MG/5 ML VIAL IVP ONE (13:00)
[2019-10-17 13:17] LABS: Glucose,Whole Blood 179 mg/dL (75-99)
[2019-10-17 14:10] LABS: Glucose,Whole Blood 164 mg/dL (75-99)
[2019-10-17 15:12] LABS: Glucose,Whole Blood 131 mg/dL (75-99)
[2019-10-17 15:56] LABS: Glucose,Whole Blood 122 mg/dL (75-99)
[2019-10-17 17:12] LABS: Glucose,Whole Blood 139 mg/dL (75-99)
[2019-10-17 18:09] LABS: Glucose,Whole Blood 162 mg/dL (75-99)
[2019-10-17] MEDS: INSULIN REGULAR 100 UNIT in SODIUM CHLORIDE 0.9% 100 ML IV SCH (18:18)
[2019-10-17 20:06] LABS: Glucose,Whole Blood 145 mg/dL (75-99)
[2019-10-17] MEDS: MONTELUKAST 10 MG TAB PO SCH (20:42)
[2019-10-17] MEDS: ATORVASTATIN 10 MG TAB PO SCH (20:42)
[2019-10-17 21:09] LABS: Glucose,Whole Blood 132 mg/dL (75-99)
[2019-10-17 23:04] LABS: Glucose,Whole Blood 153 mg/dL (75-99)
--- NOTE | 2019-10-17 23:09 | PN ---
PROGRESS NOTE DATE OF SERVICE: 10/17/2019. REASON FOR FOLLOWUP: Pneumonia. INTERVAL HISTORY: The patient is currently afebrile, has been breathing comfortably. Still requiring BiPAP though, slightly anxious. No vomiting or diarrhea has been reported. On examination, blood pressure 132/64 with a pulse of 114, temperature is 98. He is 92% on high-flow oxygen. General description is an elderly male lying in bed in no distress. Respiratory system: Unlabored breathing, decreased intense breath sounds with no wheeze. Heart S1, S2. Regular rate and rhythm. Abdomen soft. No tenderness. LABS: Hemoglobin is 14.8, white count 45854. BUN of 41, creatinine 0.64. Wound culture with Palak albicans. DIAGNOSTIC IMPRESSION AND PLAN: 1. Patient with acute respiratory failure which is likely multifactorial, possible component of fluid overload and a question of pneumonia. Currently covered with Zosyn with no resistant organisms. Antibiotic will be once his oral intake improves. 2. Bronch culture with Palak likely representing oropharyngeal colonization and we will monitor closely. 3. Continue supportive care. The family at the bedside, there questions were answered. MMODL / IJN: [id number] /
[2019-10-18 00:01] LABS: Glucose,Whole Blood 178 mg/dL (75-99)
[2019-10-18] MEDS: methylPREDNISolone SOD SUCCI 125 MG/2 ML VIAL IV SCH ×3 (00:21→16:18)
[2019-10-18] MEDS: METOPROLOL TARTRATE 5 MG/5 ML VIAL IVP SCH ×3 (00:22→16:19)
[2019-10-18 01:00] LABS: Glucose,Whole Blood 161 mg/dL (75-99)
[2019-10-18] MEDS: NOREPINEPHRINE 4 MG in SODIUM CHLORIDE 0.9% 250 ML IV SCH ×2 (02:00→15:33)
[2019-10-18 02:08] LABS: Glucose,Whole Blood 180 mg/dL (75-99)
[2019-10-18 02:57] LABS: Glucose,Whole Blood 187 mg/dL (75-99)
[2019-10-18 04:01] LABS: Glucose,Whole Blood 149 mg/dL (75-99)
[2019-10-18 04:58] LABS: Glucose,Whole Blood 117 mg/dL (75-99)
[2019-10-18 05:47] LABS: Basophils % (A) 0 %; Eosinophils % (A) 0 %; HCT 44.5 % (39.0-53.0); HGB 14.1 gm/dL (13.0-17.5); Hypochromasia Slight; Lymphocytes # (A) 0.7 k/uL (1.0-4.8); Lymphocytes % (A) 3 %; MCH 28.8 pg (25.0-35.0); MCHC 31.6 g/dL (31.0-37.0); MCV 91.1 fL (80.0-100.0); Mean Platelet Volume 7.2; Monocytes # (A) 0.6 k/uL (0-1.0); Monocytes % (A) 3 %; Neutrophils % (A) 93 %; Platelet Count 259 k/uL (150-450); RBC 4.88 m/uL (4.30-5.90); RDW 15.4 % (11.5-15.5); WBC 20.5 k/uL (3.8-10.6)
[2019-10-18 06:02] LABS: ALT 24 U/L (4-49); AST 34 U/L (17-59); African American GFR (CKD) >90 (>60 ml/min/1.73 sqM); Albumin 2.7 g/dL (3.5-5.0); Alkaline Phosphatase 92 U/L (38-126); Anion Gap 5 mmol/L; Blood Urea Nitrogen 38 mg/dL (9-20); Calcium 8.1 mg/dL (8.4-10.2); Carbon Dioxide 33 mmol/L (22-30); Chloride 107 mmol/L (98-107); Glucose 122 mg/dL (74-99); Non-African American GFR(CKD) >90 (>60 ml/min/1.73 sqM); Potassium 3.3 mmol/L (3.5-5.1); Sodium 145 mmol/L (137-145); Total Bilirubin 0.7 mg/dL (0.2-1.3); Total Protein 5.5 g/dL (6.3-8.2)
[2019-10-18 06:15] LABS: Glucose,Whole Blood 137 mg/dL (75-99)
[2019-10-18] MEDS: PANTOPRAZOLE 40 MG TABLET PO SCH (06:48)
[2019-10-18 07:01] LABS: Glucose,Whole Blood 162 mg/dL (75-99)
[2019-10-18] MEDS ORDERED: DEXTROSE 5% IN WATER 100 ML with AMIODARONE 150 MG IV ONE (07:50)
[2019-10-18] MEDS ORDERED: AMIODARONE 360 MG in DEXTROSE 5% IN WATER 200 ML IV ONE ×2 (07:50)
[2019-10-18] MEDS: MORPHINE SULFATE 2 MG/ML SYRINGE IVP PRN ×2 (08:21→10:25)
[2019-10-18 08:32] LABS: Glucose,Whole Blood 206 mg/dL (75-99)
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
[2019-10-18] MEDS: IPRATROPIUM-ALBUTEROL 3 ML NEB INHALATION SCH ×3 (09:01→14:48)
[2019-10-18] MEDS: SYMBICORT 160-4.5 MCG INHALER INHALATION SCH (09:02)
--- NOTE | 2019-10-18 09:12 | PN ---
PROGRESS NOTE Mr. Diaz is an 79-year-old male who has a history of atrial fibrillation who presented with progressive dyspnea and evidence of pneumonia requiring mechanical ventilation. He has been extubated, but has failed his swallow evaluation. He continued to be in atrial fibrillation with rapid ventricular response. He is denying any chest pain. He feels tired. He denies any dizziness or palpitation. There is no evidence of ventricular ectopic activity. He is continued on IV beta humble, but his rate remains about 100. He continues to be on the Lovenox 80 mg subcu q.12 hours, metoprolol tartrate 5 mg q.8 hours IV. PHYSICAL EXAMINATION: Blood pressure running in the 100s with the heart rate in the 130s to 140s. LUNGS: With decreased air exchange. HEART: Irregular, irregular. S1, S2. No S3 with systolic murmur. No diastolic murmur. No rub. ABDOMEN: Soft, nontender. Positive bowel sounds. EXTREMITIES: No edema. LAB DATA: Lab data revealed BUN and creatinine 38 and 0.59, potassium 3.3, hemoglobin 14.1. IMPRESSION: 1. Respiratory failure with pneumonia, improved. The patient is extubated. 2. Atrial fibrillation with rapid ventricular response. 3. Generalized weakness. 4. Inability to swallow. 5. Hypertension. RECOMMENDATION: Awaiting the results of his barium swallow. I will re-initiate the IV amiodarone. Once he is able to take p.o., then will initiate the treatment of the beta humble orally as well as the oral amiodarone to control his ventricular rate. MMODL / IJN: [id number] /
[2019-10-18] MEDS: POTASSIUM CHLORIDE ER 20 MEQ TAB.ER PO SCH (09:36)
[2019-10-18] MEDS: levETIRAcetam IV 500 MG in SODIUM CHLORIDE 0.9% 100 ML IVPB SCH (09:46)
[2019-10-18] MEDS: POTASSIUM CHLORIDE 10 MEQ in WATER FOR INJECTION 1 100ML.BAG IVPB SCH ×4 (09:47→14:05)
[2019-10-18] MEDS: ASCORBIC ACID 500 MG TAB PO SCH (09:48)
[2019-10-18] MEDS: CLOPIDOGREL 75 MG TAB PO SCH (09:48)
[2019-10-18] MEDS: METHIMAZOLE 5 MG TAB PO SCH (09:48)
[2019-10-18] MEDS: ENOXAPARIN 80 MG/0.8 ML SYRINGE SQ SCH (09:50)
[2019-10-18 10:03] LABS: Glucose,Whole Blood 194 mg/dL (75-99)
[2019-10-18] MEDS: DILTIAZEM 125 MG in SODIUM CHLORIDE 0.9% 100 ML IV SCH (11:02)
[2019-10-18 11:08] LABS: Glucose,Whole Blood 189 mg/dL (75-99)
[2019-10-18] MEDS: MULTIVITAMINS, THERA 1 EACH TAB PO SCH (12:07)
[2019-10-18 12:13] LABS: Glucose,Whole Blood 154 mg/dL (75-99)
--- NOTE | 2019-10-18 13:02 | P.PN ---
Subjective Progress Note Date: 10/18/19 This is a 79-year-old male with a known history of atrial fibrillation anticoagulated with Eliquis, COPD, myocardial infarction, coronary artery disease with cardiac stent, seizure disorder and hyperthyroidism in which she was just started on Tapazole during his last hospitalization. Patient was just recently discharged earlier in September from the hospital after being treated for COPD exacerbation and bronchitis. He also at that time had A. fib with RVR and had an increase in his Lopressor and he was started on oral Cardizem. Patient reports taking all of his medications. Patient reports never fully recovering after his hospitalization. He reports having a shortness of breath and left-sided chest pain that started to worsen throughout the night. He has a productive cough at times. Chest x-ray showing left upper lobe and possible mild right lower lobe infiltrates. Temp of 100.2 BP 91/64. Lactic was normal at 1.9. Influenza screening was negative. Patient was given Rocephin Zosyn and Levaquin in the ER for his pneumonia. There is also concerns for sepsis. He and his been given IV fluids. EKG had shown atrial fibrillation with rapid ventricular response heart rate was 175. In the ER patient was started on Cardizem drip. Troponin is elevated at 0.216. Cardiology and pulmonary services are on consult. Patient denies any nausea or vomiting bowel movement changes or urinary symptoms. On 10/08/2019 patient was seen and examined on the medical floor he is alert and oriented 3 in no apparent distress he is still complaining of shortness of breath cough and wheezing otherwise he denies any complaints there is no fever or chills no headache or dizziness no chest pain no nausea or vomiting no abdominal pain no diarrhea and no urinary symptoms. On 10/09/2019 patient is alert and oriented 3 in no distress, he is still complaining of cough, wheezing, and shortness of breath with any activity otherwise he denies any complaints there is no fever or chills no headache or dizziness no chest pain no nausea or vomiting no abdominal pain no diarrhea no burning with urination no frequency or urgency and no hematuria On 10/10/2019 patient is alert and oriented 3. Patient is still having some significant wheezing and shortness of breath. Pulmonary services are following. currently maintained on Levaquin, Zosyn and Solu-Medrol. Cardiac meds also adjusted per cardiology patient having low blood pressure. Medications to be adjusted per cardiology. At this time patient denies chest pain. Patient denies nausea vomiting or diarrhea. Patient denies any urinary burning or frequency. On 10/11/2019 patient is alert and oriented 3. Patient remains short of breath. Heart rate remains elevated cardiology and pulmonary services are following. Patient has been started on amiodarone. Patient remains on Solu- Medrol, Levaquin and Zosyn. Pulmonary services are following. Patient remains on eliquis for anticoagulation. At this time patient denies chest pain. Patient denies nausea vomiting or diarrhea. Patient denies any urinary burning or frequency On 10/12/2019 patient has elected 903. Patient's daughter is at bedside. Patient showing minimal improvement. Due to patient's minimal improvement and continued decline in respiratory status remaining transfer to tertiary facility. Transfer to [facility] in progress family in agreement. Patient remains on IV Solu-Medrol Levaquin and Zosyn. Patient was started on amiodarone Per cardiology due to A. fib RVR. At this time patient denies any nausea vomiting or diarrhea. Patient denies any urinary burning or frequency On 10/13/2019 patient was moved to the intensive care unit due to declining respiratory status. Patient has been accepted at [facility] but there are currently no beds available. Pulmonary team Dr. Stanley did discuss with family this a.m. about possibility of intubation to perform bronchoscopy. Long discussion held with family at bedside this a.m. and questions were answered. At this time family and patient are leaning towards intubation with bronchoscopy. Family and patient are aware that patient's outcome might not change with intubation and bronchoscopy. Family and patient verbalized understanding and plan to move forward with bronchoscopy and intubation. Patient remains on high flow nasal cannula. Blood pressure remains marginal. Patient has been transitioned to by mouth amiodarone. Cardiology pulmonary and infectious disease following On 10/14/2019 patient underwent planned intubation with bronchoscopy per Dr. Stanley. Patient is currently sedated on mechanical ventilation resting comfortably in the ICU. Patient is on small dose of pressure support medication Levophed likely secondary to sedation. Heart rate has improved. Urine output adequate. Bronchial washings sent for cytology. On 10/15/2019 patient was seen and examined in the ICU currently he is intubated sedated maintained on mechanical ventilation, pulmonary Dr. Stanley is following he underwent bronchoscopy yesterday cultures are so far positive for yeast otherwise no significant findings on bronchoalveolar level as culture. On 10/16/2019, patient was seen and examined in the ICU, patient is feeling better, he is still complaining of occasional cough and complaining of severe shortness of breath with any activity, he is extubated and maintained on BiPAP at this time, he is complaining of generalized weakness otherwise she denies any complaints, there is no fever or chills no headache or dizziness no chest pain no nausea or vomiting no abdominal pain no diarrhea no burning with urination no frequency or urgency and no hematuria. On 10/17/2019 patient remains in the intensive care unit. Patient was extubated and placed on BiPAP. Per pulmonary will try Airvo. Per family patient requesting to not be reintubated. We'll continue current plan of care. Patient currently tachepenic and tachycardic. Pulmonary and cardiology services are following. Family at bedside QUESTIONS answered On 10/18/2019 patient remains in the intensive care unit. Patient having increased tachypnea and tachycardia. Patient refusing to wear BiPAP throughout the night. This morning morphine was administered and BiPAP was placed. Patient is still alert and oriented 3. Discussion was held with patient about his declining status and his wishes to not be reintubated or wear BiPAP. Patient's daughters at bedside. Consideration for hospice will be discussed among patient and family. Patient started on amiodarone IV per cardiology. Patient remains on Levophed for pressure support. Objective - Vital Signs Vital signs: Vital Signs Temp 98.1 F 10/18/19 08:30 Pulse 147 H 10/18/19 12:29 Resp 28 H 10/18/19 11:15 BP 100/74 10/18/19 11:15 Pulse Ox 94 L 10/18/19 11:24 Intake & Output 10/17/19 10/18/19 10/18/19 18:59 06:59 18:59 Intake Total 607.521 685.993 639.623 Output Total 320 435 190 Balance 287.521 250.993 449.623 Weight 89.1 kg 88.9 kg Intake: IV 240 400 100 0.9 NS 240 200 100 Piperacillin-Tazobactam 3 100 .375 gm In Sodium Chloride 0.9% 100 ml @ 25 mls/hr IVPB Q8H [facility] Rx#: [id number] levETIRAcetam IV 500 mg 100 In Sodium Chloride 0.9% 100 ml @ 400 mls/hr IVPB Q12HR [facility] Rx#:[id number] Intake, IV Titration 367.521 285.993 539.623 Amount Dextrose 5% in Water 100 100 ml @ 618 mls/hr IV .Q10M ONE with Amiodarone 150 mg Rx#:[id number] Diltiazem 125 mg In 77.667 125 118.667 Sodium Chloride 0.9% 100 ml @ 10 MG/HR 10 mls/hr IV .[id number] [facility] Rx#: [id number] Insulin Regular 100 unit 42.269 49.216 20.956 In Sodium Chloride 0.9% 100 ml @ Per Protocol IV .Q0M [facility] Rx#:[id number] Norepinephrine 4 mg In 247.585 111.777 Sodium Chloride 0.9% 250 ml @ 0.05 MCG/KG/MIN 16. 535 mls/hr IV .[id number] [facility] Rx#:[id number] Potassium Chloride 10 meq 200 In Water For Injection 1 100ml.bag @ 100 mls/hr IVPB Q1HR [facility] Rx#: [id number] levETIRAcetam IV 500 mg 100 In Sodium Chloride 0.9% 100 ml @ 400 mls/hr IVPB Q12HR [facility] Rx#:[id number] Output: Urine 320 435 190 Other: Voiding Method Indwelling Catheter Indwelling Catheter # Bowel Movements 1 - Exam HEENT head normocephalic and atraumatic Neck is supple no JVD no goiter no lymphadenopathy Chest exam reveals diffuse crackles in both lung villarreal with wheezing Cardiac exam reveals regular heart sounds S1 and S2 no gallops no murmurs Abdomen is soft nontender no organomegaly with normal bowel sounds Extremity exam reveals no edema no cyanosis or clubbing Neurological examination patient is alert and oriented 3 no focal neurological deficit - Labs CBC & Chem 7: 10/18/19 05:30 10/18/19 05:30 Labs: Abnormal Lab Results - Last 24 Hours (Table) 10/17/19 10/17/19 10/17/19 Range/Units 13:15 14:08 15:11 WBC (3.8-10.6) k/uL Neutrophils # (1.3-7.7) k/uL Lymphocytes # (1.0-4.8) k/uL Potassium (3.5-5.1) mmol/L Carbon Dioxide (22-30) mmol/L BUN (9-20) mg/dL Creatinine (0.66-1.25) mg/dL Glucose (74-99) mg/dL POC Glucose (mg/dL) 179 H 164 H 131 H (75-99) mg/dL Calcium (8.4-10.2) mg/dL Total Protein (6.3-8.2) g/dL Albumin (3.5-5.0) g/dL 10/17/19 10/17/19 10/17/19 Range/Units 15:55 17:11 18:07 WBC (3.8-10.6) k/uL Neutrophils # (1.3-7.7) k/uL Lymphocytes # (1.0-4.8) k/uL Potassium (3.5-5.1) mmol/L Carbon Dioxide (22-30) mmol/L BUN (9-20) mg/dL Creatinine (0.66-1.25) mg/dL Glucose (74-99) mg/dL POC Glucose (mg/dL) 122 H 139 H 162 H (75-99) mg/dL Calcium (8.4-10.2) mg/dL Total Protein (6.3-8.2) g/dL Albumin (3.5-5.0) g/dL 10/17/19 10/17/19 10/17/19 Range/Units 20:05 21:07 23:03 WBC (3.8-10.6) k/uL Neutrophils # (1.3-7.7) k/uL Lymphocytes # (1.0-4.8) k/uL Potassium (3.5-5.1) mmol/L Carbon Dioxide (22-30) mmol/L BUN (9-20) mg/dL Creatinine (0.66-1.25) mg/dL Glucose (74-99) mg/dL POC Glucose (mg/dL) 145 H 132 H 153 H (75-99) mg/dL Calcium (8.4-10.2) mg/dL Total Protein (6.3-8.2) g/dL Albumin (3.5-5.0) g/dL 10/18/19 10/18/19 10/18/19 Range/Units 00:00 00:58 02:06 WBC (3.8-10.6) k/uL Neutrophils # (1.3-7.7) k/uL Lymphocytes # (1.0-4.8) k/uL Potassium (3.5-5.1) mmol/L Carbon Dioxide (22-30) mmol/L BUN (9-20) mg/dL Creatinine (0.66-1.25) mg/dL Glucose (74-99) mg/dL POC Glucose (mg/dL) 178 H 161 H 180 H (75-99) mg/dL Calcium (8.4-10.2) mg/dL Total Protein (6.3-8.2) g/dL Albumin (3.5-5.0) g/dL 10/18/19 10/18/19 10/18/19 Range/Units 02:56 04:00 04:56 WBC (3.8-10.6) k/uL Neutrophils # (1.3-7.7) k/uL Lymphocytes # (1.0-4.8) k/uL Potassium (3.5-5.1) mmol/L Carbon Dioxide (22-30) mmol/L BUN (9-20) mg/dL Creatinine (0.66-1.25) mg/dL Glucose (74-99) mg/dL POC Glucose (mg/dL) 187 H 149 H 117 H (75-99) mg/dL Calcium (8.4-10.2) mg/dL Total Protein (6.3-8.2) g/dL Albumin (3.5-5.0) g/dL 10/18/19 10/18/19 10/18/19 Range/Units 05:30 05:30 06:13 WBC 20.5 H (3.8-10.6) k/uL Neutrophils # 19.0 H (1.3-7.7) k/uL Lymphocytes # 0.7 L (1.0-4.8) k/uL Potassium 3.3 L (3.5-5.1) mmol/L Carbon Dioxide 33 H (22-30) mmol/L BUN 38 H (9-20) mg/dL Creatinine 0.59 L (0.66-1.25) mg/dL Glucose 122 H (74-99) mg/dL POC Glucose (mg/dL) 137 H (75-99) mg/dL Calcium 8.1 L (8.4-10.2) mg/dL Total Protein 5.5 L (6.3-8.2) g/dL Albumin 2.7 L (3.5-5.0) g/dL 10/18/19 10/18/19 10/18/19 Range/Units 06:59 08:30 10:02 WBC (3.8-10.6) k/uL Neutrophils # (1.3-7.7) k/uL Lymphocytes # (1.0-4.8) k/uL Potassium (3.5-5.1) mmol/L Carbon Dioxide (22-30) mmol/L BUN (9-20) mg/dL Creatinine (0.66-1.25) mg/dL Glucose (74-99) mg/dL POC Glucose (mg/dL) 162 H 206 H 194 H (75-99) mg/dL Calcium (8.4-10.2) mg/dL Total Protein (6.3-8.2) g/dL Albumin (3.5-5.0) g/dL 10/18/19 10/18/19 Range/Units 11:06 12:11 WBC (3.8-10.6) k/uL Neutrophils # (1.3-7.7) k/uL Lymphocytes # (1.0-4.8) k/uL Potassium (3.5-5.1) mmol/L Carbon Dioxide (22-30) mmol/L BUN (9-20) mg/dL Creatinine (0.66-1.25) mg/dL Glucose (74-99) mg/dL POC Glucose (mg/dL) 189 H 154 H (75-99) mg/dL Calcium (8.4-10.2) mg/dL Total Protein (6.3-8.2) g/dL Albumin (3.5-5.0) g/dL Microbiology - Last 24 Hours (Table) 10/13/19 14:15 Fungal Culture - Preliminary Bronchoalviolar Lavage - Right [place] albicans Assessment and Plan Assessment: 1. Shortness of breath multifactorial likely related to pneumonia, COPD exacerbation, fluid overload and atrial fibrillation with rapid ventricular response. Pulmonary service and cardiology on consult 2. Acute on chronic respiratory failure requiring mechanical intubation. Patient underwent planned bronchoscopy with intubation on 10/13/2019 bronchial washings sent for cytology. Dr. Stanley following for critical care and pulmonary services. Patient currently extubated to BiPAP 3. Pneumonia with sepsis present on admission. Chest x-ray showing a left upper lobe and possible mild right lower lobe infiltrates. Patient given 1 dose of Rocephin in the ER and started on Zosyn and Levaquin in the ER. Patient did have a temp of 100.2 and blood pressure of 91/64. Influenza screen negative. Pulmonary services are following. Patient remains on Solu-Medrol, Zosyn and Levaquin. Sputum cultures currently showing no growth. Infectious disease following. Patient currently maintained on Zosyn and Levaquin 4. Hypotension likely secondary to sedation and atrial fibrillation. Patient currently on a small dose of Levophed for pressure support 5. Atrial fibrillation with rapid ventricular response. Currently on a Cardizem drip. Cardiology on consult. Cardizem drip has been DC'd. Patient started on verapamil. Verapamil DC'd due to hypotension. Patient has been started on IV amiodarone 6. Patient has a known history of chronic atrial fibrillation anticoagulated with Eliquis. 7. Chest pain with Elevated troponin: Continue monitor cardiac enzymes. Cardiology on consult 8. Acute COPD exacerbation: Start IV Solu-Medrol 60 mg IV every 6 hours. Continue DuoNeb updraft treatments. Pulmonary services consulted 9. Hyperthyroidism: Resume patient's Tapazole. TSH level 2.430 10. Acute on Chronic diastolic CHF exacerbation. Echo from August shows an EF of 55-60%. Patient did receive 1 dose of IV Lasix in the ER. BNP 1470. By mouth Lasix has been ordered per cardiology 11. Hyponatremia: Sodium is 130 on admission. We'll monitor. Sodium improving to 134 12. History of myocardial infarction with coronary artery disease and stent 13. History of seizure disorder on Keppra 14. Acute on chronic diastolic heart failure. Patient was given 1 dose of IV Lasix per cardiology. Maintained on oral Lasix 20 mg twice a day 15. Hyperglycemia secondary to steroids. Patient currently maintained on insulin drip GI prophylaxis Protonix and DVT prophylaxis Eliquis Family has decided to cancel transfer to [facility] Patient currently extubated. Patient has been made a DO NOT RESUSCITATE per family and patient decision Pulmonary services, cardiology and infectious disease following Patient continued to have tachypnea and tachycardia. Patient refusing to wear BiPAP. Discussion was held with patient and family in regards to possible hospice if patient continues to decline I performed an examination of the patient and discussed their management with the Nurse Practitioner. I have reviewed the Nurse Practitioner's notes and agree with the documented findings and plan of care
[2019-10-18 13:30] LABS: Glucose,Whole Blood 126 mg/dL (75-99)
--- NOTE | 2019-10-18 13:44 | P.PN ---
Subjective Progress Note Date: 10/18/19 Principal diagnosis: A. 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 fib Chronic hypotension Generalized weakness Obstructive sleep apnea Hyperthyroidism 10/18/2019, patient seen eval examined during the rounds labs reviewed medications reviewed, patient remains in A. fib with rapid ventricular response heart rate is 140-150, patient has used his BiPAP machine overnight, currently patient is on high flow oxygen oxygen saturation 90-94%, patient remains on breathing treatments IV steroids and antibiotics and anticoagulation, Lasix x- ray continued to show slow worsening of left lower lobe, patient has a failed swallow evaluation yesterday today evaluation is still pending patient is awake and alert but complaining of generalized weakness family is considering hospice pending family decision and meeting 10/16/2019, patient seen eval reexamined during the rounds has been successfully extubated, patient remains on BiPAP with the support of 16/10 rate of 12 and 100% oxygen, oxygen saturation is 98%, patient is relatively more responsive open eyes, follows simple commands, currently resting on BiPAP, we'll continue BiPAP well in between use the nasal cannula was started on clear liquid diet as tolerated labs reviewed medications reviewed 10/15/2019, patient seen eval reexamined during the rounds remains intubated on full ventilator support family is present at bedside detailed discussion was present family expressed their wishes not to keep him on respirator and to extubate early in the morning, when setting reviewed, noted patient is in A. fib with rapid ventricular response however rate has improved now, patient remains in IV steroids and antibiotics and bronchodilators along with the amiodarone lab s reviewed medications reviewed him a last chest x-ray continued to show bibasilar pneumonia/atelectasis along with small effusion, not much change from baseline x-ray may be slight improvement, culture results and reports are all negative so far, critical care time 35 minutes 10/14/2019, patient seen eval examined during the rounds labs reviewed medications reviewed care plan discussed with the staff at length, patient remains sedated with 50 of propofol, patient is on levo fed to have adequate blood pressure, patient was having frequent PVCs with A. fib with RVR, we will discuss with cardiovascular service about an another infusion of IV amiodarone, in the meantime we'll check labs including mag and phosphorus, currently patient is on assist control with a rate of 16 breathing about 28 tidal volume of 455 of PEEP and 50% oxygen, but patient was low has been repleted, magnesium and soham sphorous levels are pending, cultures from respiratory secretions reviewed so far has been negative, patient is tolerating tube feed well urine output is adequate 10/13/2019, patient seen eval examined during the rounds labs reviewed medications reviewed radiographic studies reviewed as well patient is intubated due to ongoing hypoxia respiratory distress and being tired out, his chest x-ray continued to show a diffuse interstitial lung marking bilaterally postintubation chest x-ray showed stable ET tube and NG tube, patient has been is on assist control rate of 16 tidal volume of 450 with PEEP of 500% oxygen arterial blood gases pending I have a detailed discussion with the family including 2 daughters plan is to proceed with bronchoscopy for pulmonary toilet and sampling of lower airway, patient remain on the bronchodilator along with amiodarone and anticoagulation with Eliquis, patient remains on broad-spectrum antibiotics along with IV steroids rate is still not very well controlled 100-120 atrial fibrillation with RVR, respiratory secretions are stable, white cell count is decreased to 14,700, labs reviewed the renal function continued to improve, patient is having adequate output will plan to start patient on tube feed continue current medication and follow up on bronchoscopy results culture 10/11/2019, patient seen eval examined during the rounds labs reviewed medicati ons reviewed shortness of breath cough congestion is slightly better now, patient underwent a midline placement shortness of breath still there but severity has improved patient is back on amiodarone, continue steroids continue anticoagulation follow clinical course closely blood pressure remains on the low side 10/10/2019, patient seen eval examined during the rounds patient has been using CPAP machine now, cough congestion shortness breath is improved, his chest x-ray from today showing improvement in infiltrate on the left side some infiltrate on right base has been noted, patient has been getting bronchodilators as well as steroids and broad-spectrum antibiotics, now afebrile heart rate is improved now blood pressure is still marginal, on 5 L oxygen saturation is 90-92% 10/09/2019, patient seen eval examined during the rounds labs reviewed medications reviewed care plan discussed with the patient, shortness of breath is improved A. 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, patient has been struggling with low blood pressures generalized weakness he was discharged from the hospital and earlier September but never really recovered in the last few days has been having low blood pressure was in fact seen in the office due to low blood pressure advised to adjust the medicine, patient developed progressive increased shortness of breath 1 day before in addition is spiked a fever up to 101 blood pressure drop down to 90s, his chest x-ray is showing infiltrate in the left upper lobe and right lower lobe, patient has been started on broad-spectrum antibiotics his been admitted into the hospital with Cardizem drip and his heart rate improved from 170-110-120 he is on supplemental oxygen, he denies any chills, denies any hemoptysis, denies any bowel or bladder related problem, but does complain of severe generalized weakness and tiredness intermittent cough Objective - Vital Signs Vital signs: Vital Signs Temp 98.1 F 10/18/19 08:30 Pulse 147 H 10/18/19 12:29 Resp 28 H 10/18/19 11:15 BP 100/74 10/18/19 11:15 Pulse Ox 94 L 10/18/19 11:24 Intake & Output 10/17/19 10/18/19 10/18/19 18:59 06:59 18:59 Intake Total 607.521 685.993 759.623 Output Total 320 435 255 Balance 287.521 250.993 504.623 Weight 89.1 kg 88.9 kg Intake: IV 240 400 120 0.9 NS 240 200 120 Piperacillin-Tazobactam 3 100 .375 gm In Sodium Chloride 0.9% 100 ml @ 25 mls/hr IVPB Q8H [facility] Rx#: [id number] levETIRAcetam IV 500 mg 100 In Sodium Chloride 0.9% 100 ml @ 400 mls/hr IVPB Q12HR [facility] Rx#:[id number] Intake, IV Titration 367.521 285.993 639.623 Amount Dextrose 5% in Water 100 100 ml @ 618 mls/hr IV .Q10M ONE with Amiodarone 150 mg Rx#:[id number] Diltiazem 125 mg In 77.667 125 118.667 Sodium Chloride 0.9% 100 ml @ 10 MG/HR 10 mls/hr IV .[id number] [facility] Rx#: [id number] Insulin Regular 100 unit 42.269 49.216 20.956 In Sodium Chloride 0.9% 100 ml @ Per Protocol IV .Q0M [facility] Rx#:[id number] Norepinephrine 4 mg In 247.585 111.777 Sodium Chloride 0.9% 250 ml @ 0.05 MCG/KG/MIN 16. 535 mls/hr IV .[id number] [facility] Rx#:[id number] Potassium Chloride 10 meq 300 In Water For Injection 1 100ml.bag @ 100 mls/hr IVPB Q1HR [facility] Rx#: [id number] levETIRAcetam IV 500 mg 100 In Sodium Chloride 0.9% 100 ml @ 400 mls/hr IVPB Q12HR [facility] Rx#:[id number] Output: Urine 320 435 255 Other: Voiding Method Indwelling Catheter Indwelling Catheter # Bowel Movements 1 - Exam - Constitutional General appearance: Between extubated on high flow oxygen currently HEENT Eyes: anicteric sclerae, EOMI, PERRLA ENT: normal oropharynx Ears: bilateral: normal - Neck Neck: lymphadenopathy Carotids: bilateral: upstroke normal Thyroid: bilateral: normal size - Respiratory Respiratory: bilateral: diminished, wheezing (Fine bilateral), prolonged expiration, negative: dullness, rales, rhonchi - Cardiovascular Rhythm: irregularly irregular Heart sounds: normal: S1, S2 - Gastrointestinal General gastrointestinal: decreased bowel sounds, soft - Neurologic Neurologic: Arousable follow simple commands - Labs CBC & Chem 7: 10/18/19 05:30 10/18/19 05:30 Labs: Abnormal Lab Results - Last 24 Hours (Table) 10/17/19 10/17/19 10/17/19 Range/Units 14:08 15:11 15:55 WBC (3.8-10.6) k/uL Neutrophils # (1.3-7.7) k/uL Lymphocytes # (1.0-4.8) k/uL Potassium (3.5-5.1) mmol/L Carbon Dioxide (22-30) mmol/L BUN (9-20) mg/dL Creatinine (0.66-1.25) mg/dL Glucose (74-99) mg/dL POC Glucose (mg/dL) 164 H 131 H 122 H (75-99) mg/dL Calcium (8.4-10.2) mg/dL Total Protein (6.3-8.2) g/dL Albumin (3.5-5.0) g/dL 10/17/19 10/17/19 10/17/19 Range/Units 17:11 18:07 20:05 WBC (3.8-10.6) k/uL Neutrophils # (1.3-7.7) k/uL Lymphocytes # (1.0-4.8) k/uL Potassium (3.5-5.1) mmol/L Carbon Dioxide (22-30) mmol/L BUN (9-20) mg/dL Creatinine (0.66-1.25) mg/dL Glucose (74-99) mg/dL POC Glucose (mg/dL) 139 H 162 H 145 H (75-99) mg/dL Calcium (8.4-10.2) mg/dL Total Protein (6.3-8.2) g/dL Albumin (3.5-5.0) g/dL 10/17/19 10/17/19 10/18/19 Range/Units 21:07 23:03 00:00 WBC (3.8-10.6) k/uL Neutrophils # (1.3-7.7) k/uL Lymphocytes # (1.0-4.8) k/uL Potassium (3.5-5.1) mmol/L Carbon Dioxide (22-30) mmol/L BUN (9-20) mg/dL Creatinine (0.66-1.25) mg/dL Glucose (74-99) mg/dL POC Glucose (mg/dL) 132 H 153 H 178 H (75-99) mg/dL Calcium (8.4-10.2) mg/dL Total Protein (6.3-8.2) g/dL Albumin (3.5-5.0) g/dL 10/18/19 10/18/1910/17/20 Range/Units 00:58 02:06 02:56 WBC (3.8-10.6) k/uL Neutrophils # (1.3-7.7) k/uL Lymphocytes # (1.0-4.8) k/uL Potassium (3.5-5.1) mmol/L Carbon Dioxide (22-30) mmol/L BUN (9-20) mg/dL Creatinine (0.66-1.25) mg/dL Glucose (74-99) mg/dL POC Glucose (mg/dL) 161 H 180 H 187 H (75-99) mg/dL Calcium (8.4-10.2) mg/dL Total Protein (6.3-8.2) g/dL Albumin (3.5-5.0) g/dL 10/18/19 10/18/19 10/18/19 Range/Units 04:00 04:56 05:30 WBC (3.8-10.6) k/uL Neutrophils # (1.3-7.7) k/uL Lymphocytes # (1.0-4.8) k/uL Potassium 3.3 L (3.5-5.1) mmol/L Carbon Dioxide 33 H (22-30) mmol/L BUN 38 H (9-20) mg/dL Creatinine 0.59 L (0.66-1.25) mg/dL Glucose 122 H (74-99) mg/dL POC Glucose (mg/dL) 149 H 117 H (75-99) mg/dL Calcium 8.1 L (8.4-10.2) mg/dL Total Protein 5.5 L (6.3-8.2) g/dL Albumin 2.7 L (3.5-5.0) g/dL 10/18/19 10/18/19 10/18/19 Range/Units 05:30 06:13 06:59 WBC 20.5 H (3.8-10.6) k/uL Neutrophils # 19.0 H (1.3-7.7) k/uL Lymphocytes # 0.7 L (1.0-4.8) k/uL Potassium (3.5-5.1) mmol/L Carbon Dioxide (22-30) mmol/L BUN (9-20) mg/dL Creatinine (0.66-1.25) mg/dL Glucose (74-99) mg/dL POC Glucose (mg/dL) 137 H 162 H (75-99) mg/dL Calcium (8.4-10.2) mg/dL Total Protein (6.3-8.2) g/dL Albumin (3.5-5.0) g/dL 10/18/19 10/18/19 10/18/19 Range/Units 08:30 10:02 11:06 WBC (3.8-10.6) k/uL Neutrophils # (1.3-7.7) k/uL Lymphocytes # (1.0-4.8) k/uL Potassium (3.5-5.1) mmol/L Carbon Dioxide (22-30) mmol/L BUN (9-20) mg/dL Creatinine (0.66-1.25) mg/dL Glucose (74-99) mg/dL POC Glucose (mg/dL) 206 H 194 H 189 H (75-99) mg/dL Calcium (8.4-10.2) mg/dL Total Protein (6.3-8.2) g/dL Albumin (3.5-5.0) g/dL 10/18/19 10/18/19 Range/Units 12:11 13:28 WBC (3.8-10.6) k/uL Neutrophils # (1.3-7.7) k/uL Lymphocytes # (1.0-4.8) k/uL Potassium (3.5-5.1) mmol/L Carbon Dioxide (22-30) mmol/L BUN (9-20) mg/dL Creatinine (0.66-1.25) mg/dL Glucose (74-99) mg/dL POC Glucose (mg/dL) 154 H 126 H (75-99) mg/dL Calcium (8.4-10.2) mg/dL Total Protein (6.3-8.2) g/dL Albumin (3.5-5.0) g/dL Microbiology - Last 24 Hours (Table) 10/13/19 14:15 Fungal Culture - Preliminary Bronchoalviolar Lavage - Right [place] albicans Assessment and Plan Assessment: Acute on chronic respiratory failure Aspiration/aspiration pneumonia A. fib with rapid ventricular response Frequent PVCs with electrolyte imbalance including hypokalemia suspect also magnesium and phosphorus Left upper lobe and right lower lobe pneumonia Acute COPD exacerbation Acute congestive heart failure related to diastolic and systolic heart failure and A. fib Chronic hypotension Generalized weakness Obstructive sleep apnea Hyperthyroidism Plan: Continue BiPAP Use nasal cannula in between Bedside swallow daily Monitor aspiration precautions Patient is no code not to be reintubated Continue IV steroids breathing treatments and broad-spectrum antibiotics Continue diuresis Continue supportive care Prognosis is very guarded Continue to feed tube feed Further recommendations pending plan of care as per clinical response of the patient Time with Patient: Greater than 30
[2019-10-18] MEDS ORDERED: AMIODARONE 300 MG in DEXTROSE 5% IN WATER 250 ML IV SCH ×2 (13:50)
[2019-10-18 14:29] LABS: Glucose,Whole Blood 109 mg/dL (75-99)
[2019-10-18 15:15] LABS: Glucose,Whole Blood 138 mg/dL (75-99)
[2019-10-18 16:15] VITALS: BP 119/69; PULSE 152; RESP 10; TEMP 98.2
--- NOTE | 2019-10-19 12:11 | P.DS ---
Providers Date of admission: 10/07/19 10:27 Expected date of discharge: 10/18/19 Attending physician: Florian Rdz Consults: 10/07/19 10:36 Consult Physician Stat Consulting Provider: Santana Stanley Consult Reason/Comments: Pneumonia, sepsis Do you want consulting provider notified?: Yes Consult Physician Stat Consulting Provider: Jose Ashraf Consult Reason/Comments: afib rvr, elevated trop Do you want consulting provider notified?: Yes 10/11/19 14:08 Consult Physician Routine Consulting Provider: Eric Santiago Consult Reason/Comments: pneumonia Do you want consulting provider notified?: Yes Primary care physician: Florian Rdz [facility] Course: Discharge diagnosis Patient and family choosing to move forward with hospice care. Patient will be admitted to general inpatient hospice 1. Shortness of breath multifactorial likely related to pneumonia, COPD exacerbation, fluid overload and atrial fibrillation with rapid ventricular response. Pulmonary service and cardiology on consult 2. Acute on chronic respiratory failure requiring mechanical intubation. Patient underwent planned bronchoscopy with intubation on 10/13/2019 bronchial washings sent for cytology. Dr. Stanley following for critical care and pulmonary services. Patient currently extubated to BiPAP 3. Pneumonia with sepsis present on admission. Chest x-ray showing a left upper lobe and possible mild right lower lobe infiltrates. Patient given 1 dose of Rocephin in the ER and started on Zosyn and Levaquin in the ER. Patient did have a temp of 100.2 and blood pressure of 91/64. Influenza screen negative. Pulmonary services are following. Patient remains on Solu-Medrol, Zosyn and Levaquin. Sputum cultures currently showing no growth. Infectious disease following. Patient currently maintained on Zosyn and Levaquin 4. Hypotension likely secondary to sedation and atrial fibrillation. Patient currently on a small dose of Levophed for pressure support 5. Atrial fibrillation with rapid ventricular response. Currently on a Cardizem drip. Cardiology on consult. Cardizem drip has been DC'd. Patient started on verapamil. Verapamil DC'd due to hypotension. Patient has been started on IV amiodarone 6. Patient has a known history of chronic atrial fibrillation anticoagulated with Eliquis. 7. Chest pain with Elevated troponin: Continue monitor cardiac enzymes. Cardiology on consult 8. Acute COPD exacerbation: Start IV Solu-Medrol 60 mg IV every 6 hours. Continue DuoNeb updraft treatments. Pulmonary services consulted 9. Hyperthyroidism: Resume patient's Tapazole. TSH level 2.430 10. Acute on Chronic diastolic CHF exacerbation. Echo from August shows an EF of 55-60%. Patient did receive 1 dose of IV Lasix in the ER. BNP 1470. By mouth Lasix has been ordered per cardiology 11. Hyponatremia: Sodium is 130 on admission. We'll monitor. Sodium improving to 134 12. History of myocardial infarction with coronary artery disease and stent 13. History of seizure disorder on Keppra 14. Acute on chronic diastolic heart failure. Patient was given 1 dose of IV Lasix per cardiology. Maintained on oral Lasix 20 mg twice a day 15. Hyperglycemia secondary to steroids. Patient currently maintained on insulin drip Patient and family medical decision to move forward with hospice care patient not wanting to be intubated or wear BiPAP any further. Hospital course This is a 79-year-old male with a known history of atrial fibrillation anticoagulated with Eliquis, COPD, myocardial infarction, coronary artery disease with cardiac stent, seizure disorder and hyperthyroidism in which she was just started on Tapazole during his last hospitalization. Patient was just recently discharged earlier in September from the hospital after being treated for COPD exacerbation and bronchitis. He also at that time had A. fib with RVR and had an increase in his Lopressor and he was started on oral Cardizem. Patient reports taking all of his medications. Patient reports never fully recovering after his hospitalization. He reports having a shortness of breath and left-sided chest pain that started to worsen throughout the night. He has a productive cough at times. Chest x-ray showing left upper lobe and possible mild right lower lobe infiltrates. Temp of 100.2 BP 91/64. Lactic was normal at 1.9. Influenza screening was negative. Patient was given Rocephin Zosyn and Levaquin in the ER for his pneumonia. There is also concerns for sepsis. He and his been given IV fluids. EKG had shown atrial fibrillation with rapid ventricular response heart rate was 175. In the ER patient was started on Cardizem drip. Troponin is elevated at 0.216. Cardiology and pulmonary servi reyes are on consult. Patient denies any nausea or vomiting bowel movement changes or urinary symptoms. On 10/08/2019 patient was seen and examined on the medical floor he is alert and oriented 3 in no apparent distress he is still complaining of shortness of breath cough and wheezing otherwise he denies any complaints there is no fever or chills no headache or dizziness no chest pain no nausea or vomiting no abdominal pain no diarrhea and no urinary symptoms. On 10/09/2019 patient is alert and oriented 3 in no distress, he is still complaining of cough, wheezing, and shortness of breath with any activity otherwise he denies any complaints there is no fever or chills no headache or dizziness no chest pain no nausea or vomiting no abdominal pain no diarrhea no burning with urination no frequency or urgency and no hematuria On 10/10/2019 patient is alert and oriented 3. Patient is still having some significant wheezing and shortness of breath. Pulmonary services are following. currently maintained on Levaquin, Zosyn and Solu-Medrol. Cardiac meds also adjusted per cardiology patient having low blood pressure. Medications to be adjusted per cardiology. At this time patient denies chest pain. Patient denies nausea vomiting or diarrhea. Patient denies any urinary burning or frequency. On 10/11/2019 patient is alert and oriented 3. Patient remains short of breath. Heart rate remains elevated cardiology and pulmonary services are following. Patient has been started on amiodarone. Patient remains on Solu- Medrol, Levaquin and Zosyn. Pulmonary services are following. Patient remains on eliquis for anticoagulation. At this time patient denies chest pain. Patient denies nausea vomiting or diarrhea. Patient denies any urinary burning or frequency On 10/12/2019 patient has elected 903. Patient's daughter is at bedside. Patient showing minimal improvement. Due to patient's minimal improvement and continued decline in respiratory status remaining transfer to tertiary facility. Transfer to [facility] in progress family in agreement. Patient remains on IV Solu-Medrol Levaquin and Zosyn. Patient was started on amiodarone Per cardiology due to A. fib RVR. At this time patient denies any nausea vomiting or diarrhea. Patient denies any urinary burning or frequency On 10/13/2019 patient was moved to the intensive care unit due to declining resp iratory status. Patient has been accepted at [facility] but there are currently no beds available. Pulmonary team Dr. Stanley did discuss with family this a.m. about possibility of intubation to perform bronchoscopy. Long discussion held with family at bedside this a.m. and questions were answered. At this time family and patient are leaning towards intubation with bronchoscopy. Family and patient are aware that patient's outcome might not change with intubation and bronchoscopy. Family and patient verbalized understanding and plan to move forward with bronchoscopy and intubation. Patient remains on high flow nasal cannula. Blood pressure remains marginal. Patient has been transitioned to by mouth amiodarone. Cardiology pulmonary and infectious disease following On 10/14/2019 patient underwent planned intubation with bronchoscopy per Dr. Stanley. Patient is currently sedated on mechanical ventilation resting comfortably in the ICU. Patient is on small dose of pressure support medication Levophed likely secondary to sedation. Heart rate has improved. Urine output adequate. Bronchial washings sent for cytology. On 10/15/2019 patient was seen and examined in the ICU currently he is intubated sedated maintained on mechanical ventilation, pulmonary Dr. Stanley is following he underwent bronchoscopy yesterday cultures are so far positive for yeast otherwise no significant findings on bronchoalveolar level as culture. On 10/16/2019, patient was seen and examined in the ICU, patient is feeling better, he is still complaining of occasional cough and complaining of severe shortness of breath with any activity, he is extubated and maintained on BiPAP at this time, he is complaining of generalized weakness otherwise she denies any complaints, there is no fever or chills no headache or dizziness no chest pain no nausea or vomiting no abdominal pain no diarrhea no burning with urination no frequency or urgency and no hematuria. On 10/17/2019 patient remains in the intensive care unit. Patient was extubated and placed on BiPAP. Per pulmonary will try Airvo. Per family patient requesting to not be reintubated. We'll continue current plan of care. Patient currently tachepenic and tachycardic. Pulmonary and cardiology services are following. Family at bedside QUESTIONS answered On 10/18/2019 patient remains in the intensive care unit. Patient having increased tachypnea and tachycardia. Patient refusing to wear BiPAP throughout the night. This morning morphine was administered and BiPAP was placed. Patient is still alert and oriented 3. Discussion was held with patient about his declining status and his wishes to not be reintubated or wear BiPAP. Patient's daughters at bedside. Consideration for hospice will be discussed among patient and family. Patient started on amiodarone IV per cardiology. Patient remains on Levophed for pressure support. patient will be discharged admitted under Gen. hospice care decision made by patient and family I performed an examination of the patient and discussed their management with the Nurse Practitioner. I have reviewed the Nurse Practitioner's notes and agree with the documented findings and plan of care Patient Condition at Discharge: Stable Plan - Discharge Summary New Discharge Prescriptions: No Action Lisinopril [Zestril] 2.5 mg PO AC-SUPPER Montelukast Sodium [Singulair] 10 mg PO HS Albuterol Sulfate [Proair Hfa] 2 puff INHALATION RT-Q6H PRN PRN Reason: Shortness Of Breath Clopidogrel [Plavix] 75 mg PO DAILY Omeprazole [PriLOSEC] 20 mg PO DAILY Multivitamins, Thera [Multivitamin (formulary)] 1 tab PO DAILY Fluticasone/Salmeterol [Advair 500-50 Diskus] 1 puff INHALATION RT-BID levETIRAcetam [Keppra] 500 mg PO BID Potassium Chloride ER [K-Dur 20] 20 meq PO DAILY Simvastatin [Zocor] 20 mg PO HS glipiZIDE [Glucotrol] 5 mg PO AC-TID tab diphenhydrAMINE [Benadryl] 25 mg PO HS Ascorbic Acid [Vitamin C] 500 mg PO DAILY Fluticasone Nasal [place] [Flonase Nasal [place]] 1 spray EA NOSTRIL DAILY PRN PRN Reason: STUFFY NOSE Ipratropium-Albuterol Nebulize [Duoneb 0.5 mg-3 mg/3 ml Soln] 3 ml INHALATION RT-QID ampul.neb Furosemide [Lasix] 20 mg PO DAILY Isosorbide Mononitrate [Imdur] 120 mg PO DAILY Diltiazem Cd [Cardizem CD] 120 mg PO DAILY 30 Days #30 cap.er.24h Apixaban [Eliquis] 5 mg PO BID 30 Days #60 tab Methimazole [Tapazole] 5 mg PO DAILY 30 Days #30 tab Metoprolol Succinate (ER) [Toprol XL] 200 mg PO DAILY 30 Days #60 tab.er.24h Discharge Medication List Albuterol Sulfate [Proair Hfa] 2 puff INHALATION RT-Q6H PRN 01/11/14 [History] Clopidogrel [Plavix] 75 mg PO DAILY 01/11/14 [History] Lisinopril [Zestril] 2.5 mg PO AC-SUPPER 01/11/14 [History] Montelukast Sodium [Singulair] 10 mg PO HS 01/11/14 [History] Multivitamins, Thera [Multivitamin (formulary)] 1 tab PO DAILY 01/11/14 [History] Omeprazole [PriLOSEC] 20 mg PO DAILY 01/11/14 [History] Fluticasone/Salmeterol [Advair 500-50 Diskus] 1 puff INHALATION RT-BID 03/28/15 [History] Potassium Chloride ER [K-Dur 20] 20 meq PO DAILY 06/27/18 [History] levETIRAcetam [Keppra] 500 mg PO BID 06/27/18 [History] Simvastatin [Zocor] 20 mg PO HS 08/14/18 [History] glipiZIDE [Glucotrol] 5 mg PO AC-TID tab 09/06/18 [Rx] Ascorbic Acid [Vitamin C] 500 mg PO DAILY 06/01/19 [History] Fluticasone Nasal [place] [Flonase Nasal [place]] 1 spray EA NOSTRIL DAILY PRN 06/01/19 [History] diphenhydrAMINE [Benadryl] 25 mg PO HS 06/01/19 [History] Ipratropium-Albuterol Nebulize [Duoneb 0.5 mg-3 mg/3 ml Soln] 3 ml INHALATION RT-QID ampul.neb 06/04/19 [Rx] Furosemide [Lasix] 20 mg PO DAILY 08/31/19 [History] Isosorbide Mononitrate [Imdur] 120 mg PO DAILY 08/31/19 [History] Apixaban [Eliquis] 5 mg PO BID 30 Days #60 tab 09/19/19 [Rx] Diltiazem Cd [Cardizem CD] 120 mg PO DAILY 30 Days #30 cap.er.24h 09/19/19 [Rx] Methimazole [Tapazole] 5 mg PO DAILY 30 Days #30 tab 09/19/19 [Rx] Metoprolol Succinate (ER) [Toprol XL] 200 mg PO DAILY 30 Days #60 tab.er.24h 09/19/19 [Rx] Follow up Appointment(s)/Referral(s): Florian Rdz MD [Primary Care Provider] - 1-2 days Discharge Disposition: DISCH TO HOSPICE MED FACILTY
== END 2019-10-18 16:48 | disposition hospice, inpatient (51) | DRG 871 ==
LOC: EC 08:53 → 3SCARD 10:27 → 2SICU 10-13 05:16
PROVIDERS: ADMIT Internal Medicine; ATTEND Internal Medicine
PROC: 5A09557 Assistance with Respiratory Ventilation, Greater than 96 Consecutive Hours, Continuous Positive Airway Pressure (ICD-10-PCS; 2019-10-07)
PROC: 05HC33Z Insertion of Infusion Device into Left Basilic Vein, Percutaneous Approach (ICD-10-PCS; 2019-10-11)
PROC: 3E0G76Z Introduction of Nutritional Substance into Upper GI, Via Natural or Artificial Opening (ICD-10-PCS; principal; 2019-10-13 08:00)
PROC: 0B9C8ZX Drainage of Right Upper Lung Lobe, Via Natural or Artificial Opening Endoscopic, Diagnostic (ICD-10-PCS; principal; 2019-10-13 08:00)
PROC: 0B9F8ZX Drainage of Right Lower Lung Lobe, Via Natural or Artificial Opening Endoscopic, Diagnostic (ICD-10-PCS; principal; 2019-10-13 08:00)
PROC: 0D9670Z Drainage of Stomach with Drainage Device, Via Natural or Artificial Opening (ICD-10-PCS; principal; 2019-10-13 08:00)
PROC: 5A1945Z Respiratory Ventilation, 24-96 Consecutive Hours (ICD-10-PCS; principal; 2019-10-13 08:00)
PROC: 0BH17EZ Insertion of Endotracheal Airway into Trachea, Via Natural or Artificial Opening (ICD-10-PCS; principal; 2019-10-13 08:00)
PROC: 0B9J8ZX Drainage of Left Lower Lung Lobe, Via Natural or Artificial Opening Endoscopic, Diagnostic (ICD-10-PCS; principal; 2019-10-13 08:00)
PROC: 5A09457 Assistance with Respiratory Ventilation, 24-96 Consecutive Hours, Continuous Positive Airway Pressure (ICD-10-PCS; 2019-10-16)
DX: A41.9 Sepsis, unspecified organism (principal); I50.43 Acute on chronic combined systolic (congestive) and diastolic (congestive) heart failure; J96.21 Acute and chronic respiratory failure with hypoxia; J69.0 Pneumonitis due to inhalation of food and vomit; J18.9 Pneumonia, unspecified organism; I48.20 Chronic atrial fibrillation, unspecified; E87.1 Hypo-osmolality and hyponatremia; J98.11 Atelectasis; I95.89 Other hypotension; J43.9 Emphysema, unspecified; I11.0 Hypertensive heart disease with heart failure; E05.90 Thyrotoxicosis, unspecified without thyrotoxic crisis or storm; G40.909 Epilepsy, unspecified, not intractable, without status epilepticus; E11.65 Type 2 diabetes mellitus with hyperglycemia; J45.50 Severe persistent asthma, uncomplicated; Z66 Do not resuscitate; Z51.5 Encounter for palliative care; G47.33 Obstructive sleep apnea (adult) (pediatric); I49.3 Ventricular premature depolarization; E87.6 Hypokalemia; E78.5 Hyperlipidemia, unspecified; T38.0X5A Adverse effect of glucocorticoids and synthetic analogues, initial encounter; I25.10 Atherosclerotic heart disease of native coronary artery without angina pectoris; H91.92 Unspecified hearing loss, left ear; L71.9 Rosacea, unspecified; M19.90 Unspecified osteoarthritis, unspecified site; R79.89 Other specified abnormal findings of blood chemistry; T42.75XA Adverse effect of unspecified antiepileptic and sedative-hypnotic drugs, initial encounter; E66.9 Obesity, unspecified; Z68.31 Body mass index [BMI] 31.0-31.9, adult; I25.2 Old myocardial infarction; Z79.01 Long term (current) use of anticoagulants; Z79.02 Long term (current) use of antithrombotics/antiplatelets; Z79.52 Long term (current) use of systemic steroids; Z79.84 Long term (current) use of oral hypoglycemic drugs; Z79.51 Long term (current) use of inhaled steroids; Z79.899 Other long term (current) drug therapy; Z71.3 Dietary counseling and surveillance; Z87.891 Personal history of nicotine dependence; Z95.5 Presence of coronary angioplasty implant and graft; Z87.01 Personal history of pneumonia (recurrent); Z86.73 Personal history of transient ischemic attack (TIA), and cerebral infarction without residual deficits; Z85.46 Personal history of malignant neoplasm of prostate; Z90.79 Acquired absence of other genital organ(s); Z86.14 Personal history of Methicillin resistant Staphylococcus aureus infection; Z86.19 Personal history of other infectious and parasitic diseases; Z90.49 Acquired absence of other specified parts of digestive tract; Z85.828 Personal history of other malignant neoplasm of skin; Z98.890 Other specified postprocedural states; Z88.5 Allergy status to narcotic agent; Z88.8 Allergy status to other drugs, medicaments and biological substances; Z82.0 Family history of epilepsy and other diseases of the nervous system; Z80.8 Family history of malignant neoplasm of other organs or systems; Z80.0 Family history of malignant neoplasm of digestive organs
CPT/HCPCS: 31624; 36410; 36415; 36600; 71045; 71046; 76937; 80053; 81003; 82805; 83605; 83735; 83880; 84100; 84132; 84145; 84443; 84484; 85025; 85610; 85730; 87040; 87070; 87102; 87116; 87205; 87206; 87252; 87496; 87498; 87502; 87529; 87541; 87634; 87798; 88108; 88305; 89050; 94002; 94003; 94640; 94660; 94760; 96365; 96366; 96368; 96375; 96376; 99291

== ENCOUNTER 2019-10-18 13:22 | Inpatient (IN) | payer MEDICAID ==
[2019-10-18] MEDS ORDERED: LORazepam 2 MG/ML INJ IV PRN (13:27)
[2019-10-18] MEDS ORDERED: ARTIFICIAL TEARS-HYPROMELLOSE DROPS 15 ML BTL BOTH EYES PRN (13:27)
[2019-10-18] MEDS ORDERED: MORPHINE SULFATE 4 MG/ML SYRINGE IV PRN (13:27)
[2019-10-18] MEDS ORDERED: ONDANSETRON 4 MG/2 ML VIAL IVP PRN (13:27)
[2019-10-18] MEDS ORDERED: SCOPOLAMINE 1.5MG/72HR PATCH TRANSDERM SCH (14:00)
[2019-10-18] MEDS: OSELTAMIVIR 75 MG CAP PO SCH (18:35)
[2019-10-18] MEDS: MORPHINE SULFATE (100 MG/2 ML) 100 MG in SODIUM CHLORIDE 0.9% 100 ML IV SCH (18:35)
[2019-10-18] MEDS: ATROPINE OPHTH SOLN 1% 5ML BTL SUBLINGUAL PRN (19:16)
[2019-10-19] MEDS: OSELTAMIVIR 75 MG CAP PO SCH (10:43)
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
[2019-10-20] MEDS: MORPHINE SULFATE (100 MG/2 ML) 100 MG in SODIUM CHLORIDE 0.9% 100 ML IV SCH (01:24)
[2019-10-20] MEDS: OSELTAMIVIR 75 MG CAP PO SCH (07:16)
[2019-10-20] MEDS: ATROPINE OPHTH SOLN 1% 5ML BTL SUBLINGUAL PRN (09:05)
--- NOTE | 2019-10-20 10:38 | P.PN ---
Subjective Progress Note Date: 10/20/19 This is an 79-year-old male patient who is currently admitted under [facility] hospice care. Patient was originally admitted with [place] with RVR and COPD exacerbation. Despite medical treatment during hospitalization patient continued to decline with rapid heart rate and increased respiratory rate. Patient was on mechanical ventilation but per patient request to be taken off and not reintubated. Patient also declined BiPAP pressure support requesting that he be comfortable. At that time patient was placed on hospice care under [facility]. On 10/19/2019 patient is currently resting comfortably in bed. Patient does not display any signs of pain. Family is at bedside. On 10/20/2019 patient is currently resting in bed. Per patient family patient is getting some signs of discomfort with movement morphine drip adjusted per protocol. Patient is not following commands Objective - Vital Signs Vital signs: Intake & Output 10/19/19 10/20/19 10/20/19 18:59 06:59 18:59 Intake Total 61.778 31.416 Output Total 600 600 Balance -538.222 -568.584 Intake: Intake, IV Titration 61.778 31.416 Amount Morphine Sulfate (100 mg/ 61.778 31.416 2 ml) 100 mg In Sodium Chloride 0.9% 100 ml @ 1 MG/HR 1.02 mls/hr IV . Q24H [facility] Rx#:[id number] Output: Urine 600 600 Uretheral ([place]) 600 600 - Exam Head normocephalic Neck supple Lungs minutes with minimal airflow Heart irregular heart rate Abdomen is soft nontender nondistended positive bowel sounds no hepatosplenomegaly Extremities no edema Assessment and Plan Assessment: 1. Shortness of breath multifactorial likely related to pneumonia, COPD exacerbation, fluid overload and atrial fibrillation with rapid ventricular response. 2. Acute on chronic respiratory failure requiring mechanical intubation. Patient was extubated and requested to not be reintubated 3. Pneumonia with sepsis present on admission. 4. Hypotension likely secondary to sedation and atrial fibrillation. 5. Atrial fibrillation with rapid ventricular response. 6. Patient has a known history of chronic atrial fibrillation anticoagulated with Eliquis. 7. Acute COPD exacerbation: 8. Hyperthyroidism: Resume patient's Tapazole. 9. Acute on Chronic diastolic CHF exacerbation. 10. Hyponatremia: Sodium is 130 on admission. We'll monitor. Sodium improving to 134 11. History of myocardial infarction with coronary artery disease and stent 12. History of seizure disorder on Keppra Patient has been admitted under [facility] Gen. inpatient. currently maintained on heparin drip I performed an examination of the patient and discussed their management with the Nurse Practitioner. I have reviewed the Nurse Practitioner's notes and agree with the documented findings and plan of care
--- NOTE | 2019-10-20 12:42 | P.DS ---
Providers Date of admission: 10/18/19 17:02 Expected date of discharge: 10/20/19 Attending physician: Florian Rdz Primary care physician: Florian Rdz [facility] Course: Discharge diagnosis Patient on 10/20/2019 at 1209 1. Shortness of breath multifactorial likely related to pneumonia, COPD exacerbation, fluid overload and atrial fibrillation with rapid ventricular response. 2. Acute on chronic respiratory failure requiring mechanical intubation. Patient was extubated and requested to not be reintubated 3. Pneumonia with sepsis present on admission. 4. Hypotension likely secondary to sedation and atrial fibrillation. 5. Atrial fibrillation with rapid ventricular response. 6. Patient has a known history of chronic atrial fibrillation anticoagulated with Eliquis. 7. Acute COPD exacerbation: 8. Hyperthyroidism: Resume patient's Tapazole. 9. Acute on Chronic diastolic CHF exacerbation. 10. Hyponatremia: Sodium is 130 on admission. We'll monitor. Sodium improving to 134 11. History of myocardial infarction with coronary artery disease and stent 12. History of seizure disorder on [facility] course This is an 79-year-old male patient who is currently admitted under [facility] hospice care. Patient was originally admitted with [place] with RVR and COPD exacerbation. Despite medical treatment during hospitalization patient continued to decline with rapid heart rate and increased respiratory rate. Patient was on mechanical ventilation but per patient request to be taken off and not reintubated. Patient also declined BiPAP pressure support requesting that he be comfortable. At that time patient was placed on hospice care under [facility]. On 10/19/2019 patient is currently resting comfortably in bed. Patient does not display any signs of pain. Family is at bedside. On 10/20/2019 patient is currently resting in bed. Per patient family patient is getting some signs of discomfort with movement morphine drip adjusted per protocol. Patient is not following commands Time of 1209 Plan - Discharge Summary New Discharge Prescriptions: No Action RX: Lisinopril [Zestril] 2.5 mg PO AC-SUPPER RX: Montelukast Sodium [Singulair] 10 mg PO HS RX: Albuterol Sulfate [Proair Hfa] 2 puff INHALATION RT-Q6H PRN PRN Reason: Shortness Of Breath RX: Clopidogrel [Plavix] 75 mg PO DAILY RX: Omeprazole [PriLOSEC] 20 mg PO DAILY RX: Multivitamins, Thera [Multivitamin (formulary)] 1 tab PO DAILY RX: Fluticasone/Salmeterol [Advair 500-50 Diskus] 1 puff INHALATION RT-BID RX: levETIRAcetam [Keppra] 500 mg PO BID RX: Potassium Chloride ER [K-Dur 20] 20 meq PO DAILY RX: Simvastatin [Zocor] 20 mg PO HS RX: glipiZIDE [Glucotrol] 5 mg PO AC-TID tab RX: diphenhydrAMINE [Benadryl] 25 mg PO HS RX: Ascorbic Acid [Vitamin C] 500 mg PO DAILY RX: Fluticasone Nasal [place] [Flonase Nasal [place]] 1 spray EA NOSTRIL DAILY PRN PRN Reason: STUFFY NOSE RX: Ipratropium-Albuterol Nebulize [Duoneb 0.5 mg-3 mg/3 ml Soln] 3 ml INHALATION RT-QID ampul.neb RX: Furosemide [Lasix] 20 mg PO DAILY RX: Isosorbide Mononitrate [Imdur] 120 mg PO DAILY RX: Diltiazem Cd [Cardizem CD] 120 mg PO DAILY 30 Days #30 cap.er.24h RX: Apixaban [Eliquis] 5 mg PO BID 30 Days #60 tab RX: Methimazole [Tapazole] 5 mg PO DAILY 30 Days #30 tab RX: Metoprolol Succinate (ER) [Toprol XL] 200 mg PO DAILY 30 Days #60 tab.er.24h Discharge Medication List RX: Albuterol Sulfate [Proair Hfa] 2 puff INHALATION RT-Q6H PRN 01/11/14 [History] RX: Clopidogrel [Plavix] 75 mg PO DAILY 01/11/14 [History] RX: Lisinopril [Zestril] 2.5 mg PO AC-SUPPER 01/11/14 [History] RX: Montelukast Sodium [Singulair] 10 mg PO HS 01/11/14 [History] RX: Multivitamins, Thera [Multivitamin (formulary)] 1 tab PO DAILY 01/11/14 [History] RX: Omeprazole [PriLOSEC] 20 mg PO DAILY 01/11/14 [History] RX: Fluticasone/Salmeterol [Advair 500-50 Diskus] 1 puff INHALATION RT-BID 03/28/15 [History] RX: Potassium Chloride ER [K-Dur 20] 20 meq PO DAILY 06/27/18 [History] RX: levETIRAcetam [Keppra] 500 mg PO BID 06/27/18 [History] RX: Simvastatin [Zocor] 20 mg PO HS 08/14/18 [History] RX: glipiZIDE [Glucotrol] 5 mg PO AC-TID tab 09/06/18 [Rx] RX: Ascorbic Acid [Vitamin C] 500 mg PO DAILY 06/01/19 [History] RX: Fluticasone Nasal [place] [Flonase Nasal [place]] 1 spray EA NOSTRIL DAILY PRN 06/01/19 [History] RX: diphenhydrAMINE [Benadryl] 25 mg PO HS 06/01/19 [History] RX: Ipratropium-Albuterol Nebulize [Duoneb 0.5 mg-3 mg/3 ml Soln] 3 ml INHA LATION RT-QID ampul.neb 06/04/19 [Rx] RX: Furosemide [Lasix] 20 mg PO DAILY 08/31/19 [History] RX: Isosorbide Mononitrate [Imdur] 120 mg PO DAILY 08/31/19 [History] RX: Apixaban [Eliquis] 5 mg PO BID 30 Days #60 tab 09/19/19 [Rx] RX: Diltiazem Cd [Cardizem CD] 120 mg PO DAILY 30 Days #30 cap.er.24h 09/19/19 [Rx] RX: Methimazole [Tapazole] 5 mg PO DAILY 30 Days #30 tab 09/19/19 [Rx] RX: Metoprolol Succinate (ER) [Toprol XL] 200 mg PO DAILY 30 Days #60 tab.er.24h 09/19/19 [Rx] Discharge Disposition: - Preliminary Cause of Preliminary Cause of : Pneumonia, CHF, respiratory failure
== END 2019-10-20 15:44 | disposition expired | DRG 951 ==
LOC: 2SICU 17:02 → 4SSUR 10-20 06:49
PROVIDERS: ADMIT Internal Medicine; ATTEND Internal Medicine
DX: Z51.5 Encounter for palliative care (principal); A41.9 Sepsis, unspecified organism; I50.33 Acute on chronic diastolic (congestive) heart failure; J18.9 Pneumonia, unspecified organism; J96.20 Acute and chronic respiratory failure, unspecified whether with hypoxia or hypercapnia; E87.1 Hypo-osmolality and hyponatremia; I48.20 Chronic atrial fibrillation, unspecified; J44.0 Chronic obstructive pulmonary disease with (acute) lower respiratory infection; J44.1 Chronic obstructive pulmonary disease with (acute) exacerbation; Z66 Do not resuscitate; E05.90 Thyrotoxicosis, unspecified without thyrotoxic crisis or storm; I11.0 Hypertensive heart disease with heart failure; E11.9 Type 2 diabetes mellitus without complications; E78.5 Hyperlipidemia, unspecified; G40.909 Epilepsy, unspecified, not intractable, without status epilepticus; H91.92 Unspecified hearing loss, left ear; I25.10 Atherosclerotic heart disease of native coronary artery without angina pectoris; I25.2 Old myocardial infarction; L71.9 Rosacea, unspecified; K42.9 Umbilical hernia without obstruction or gangrene; M19.90 Unspecified osteoarthritis, unspecified site; I95.9 Hypotension, unspecified; Z88.5 Allergy status to narcotic agent; Z79.01 Long term (current) use of anticoagulants; Z79.02 Long term (current) use of antithrombotics/antiplatelets; Z79.84 Long term (current) use of oral hypoglycemic drugs; Z79.899 Other long term (current) drug therapy; Z85.46 Personal history of malignant neoplasm of prostate; Z85.828 Personal history of other malignant neoplasm of skin; Z86.14 Personal history of Methicillin resistant Staphylococcus aureus infection; Z86.73 Personal history of transient ischemic attack (TIA), and cerebral infarction without residual deficits; Z87.891 Personal history of nicotine dependence; Z95.5 Presence of coronary angioplasty implant and graft; Z90.49 Acquired absence of other specified parts of digestive tract; Z87.01 Personal history of pneumonia (recurrent); Z80.0 Family history of malignant neoplasm of digestive organs; Z80.8 Family history of malignant neoplasm of other organs or systems; Z82.0 Family history of epilepsy and other diseases of the nervous system